=== PATIENT | female | born 1950 | race Caucasian/White ===

== ENCOUNTER → 2017-12-12 08:11 | Outpatient (CLI) | payer MEDICARE, SELFPAY ==
[2017-12-12 10:30] LABS: Absolute Lymphocyte Count 1.74 X10^3/ul (0.83-4.51); Absolute Neutrophil Count 2.5 X10^3/uL (2.0-7.7); Basophil# 0.04 X10^3/uL; Basophil% 0.8 % (0-1); Eosinophil# 0.11 X10^3/uL; Eosinophils% 2.2 % (0-5); Hematocrit 43.2 % (37-47); Hemoglobin 14.1 g/dl (12.0-15.0); Lymphocyte # 1.74 X10^3/ul (4.0); Lymphocyte % 34.2 % (19-41); Mean Corp Hgb Conc 32.6 g/gl (32-36); Mean Corpuscular Volume 98.2 fL (81-99); Mean Platelet Vol. 12.1 fl (6.2-12.0); Monocyte# 0.73 X10^3/uL; Monocyte% 14.3 % (0-10); Neutrophil # 2.46 X10^3/uL (2.7-7.7); Neutrophil % 48.3 % (47-70); Platelet Count 321 K/mm3 (150-450); RBC Distribution Width CV 13.9 % (11.6-14.6); RBC Distribution Width SD 49.1 fl (35.1-43.9); White Blood Count 5.1 K/mm3 (4.4-11.0)
[2017-12-12 10:32] LABS: POSITIVE COUNT NO; POSITIVE DIFFERENTIAL NO; POSITIVE MORPHOLOGY NO
[2017-12-12 10:50] LABS: ALB/GLOB Ratio 1.1 RATIO (0.9-2.4); AST(SGOT) 27 U/L (15-37); Alanine Aminotransfer ALT/SGPT 28 U/L (13-56); Albumin, Serum 3.9 g/dL (3.2-5.0); Alkaline Phosphatase 66 U/L (45-117); Anion Gap 9 (5-15); BUN 17 mg/dL (7-18); BUN/Creat Ratio 19.6 RATIO (10-20); Calcium,Total 8.6 mg/dL (8.5-10.1); Chloride 104 mmol/L (98-107); Cholesterol 227 mg/dL (200); Creatinine, Serum 0.87 mg/dL (0.55-1.02); EST Glomerular Filtration Rate 69 mL/min (>60); Est Glom Filt Rate - Afr Amer 83 mL/min (>60); Globulin 3.4 g/dL (2.2-4.2); Glucose 85 mg/dL (74-106); High Density Lipoprotein 102 mg/dL; Potassium 4.4 mmol/L (3.5-5.1); Protein, Total 7.3 g/dL (6.4-8.2); Sodium Level 139 mmol/L (136-145); Thyroid Stim Hormone (TSH) 3.33 uIU/mL (0.358-3.74); Triglycerides 52 mg/dL; Very Low Density Lipoprotein 10 mg/dL (5-40)
[2017-12-13 09:33] LABS: Vitamin D,25 Hydroxy 32.1 ng/mL (29.95-100.01)
== END ==
PROVIDERS: Family Provider Family Medicine; PCP Family Medicine; Visit Provider Family Medicine
DX: Z00.00 Encounter for general adult medical examination without abnormal findings (principal); E78.00 Pure hypercholesterolemia, unspecified; E55.9 Vitamin D deficiency, unspecified
CPT/HCPCS: 36415; 80053; 80061; 82306; 84443; 85025

== ENCOUNTER → 2018-02-20 10:22 | Outpatient (CLI) | payer MEDICARE, SELFPAY ==
--- NOTE | 2018-02-20 10:27 | BI_ITS ---
MAMMOGRAPHY - BILATERAL SCREENING REASON FOR EXAM: Female, 67 years old. Routine annual screening examination. PERTINENT HISTORY: Non-contributory. TECHNIQUE: Digital bilateral breast niru (3D mammographic acquisition) in the CC and MLO projections. 2-D mediolateral oblique (MLO) and craniocaudad (CC) views of both breasts were obtained. CAD: Full Field Digital Mammography with Computer Added Detection was performed. COMPARISON: Comparison is made with prior study dated February 07, 2017 and September 02, 2015. FINDINGS: Breast Composition: The breasts are heterogeneously dense, which may obscure small masses. There are no dominant masses or suspicious calcifications. No other significant abnormalities are identified. There has been no significant change since the prior study. BI/SCREENING MAMM (CAD), BILAT IMPRESSION: Stable bilateral screening mammogram. Yearly follow-up mammogram recommended. (A) ASSESSMENT CATEGORY: BIRADS Category 1: Negative. A letter regarding these results will be sent to the patient by the facility within 30 days. Approximately 10% of breast cancers are not detected by mammography. A normal mammogram should not delay biopsy of a clinically suspicious abnormality. [id number] Electronically Signed: Ajay Lai MD at 12:29 EDT Tel [phone], Service support ,
--- NOTE | 2018-02-20 10:33 | BD_ITS ---
STUDY: DUAL ENERGY X-RAY ABSORPTIOMETRY / DXA REASON FOR EXAM: Female, 67 years old. The patient is postmenopausal. Loss of height. TECHNIQUE: Bone Mineral Density (BMD) measurements of lumbar spine and bilateral hips were obtained. COMPARISON: Comparison is made with prior study dated February 16, 2016. FINDINGS: Lumbar Spine (L1-L4): g/cm2 (0.941) / T-score (-1.9) / Z-score (-0.2) Findings are suggestive of osteopenia with a moderate fracture risk. Left Femur Total: g/cm2 (0.750) / T-score (-2.0) / Z-score (-0.6) Left Femoral Neck: g/cm2 (0.714) / T-score (-2.3) / Z-score (-0.7) Right Femur Total: g/cm2 (0.787) / T-score (-1.7) / Z-score (-0.3) Right Femoral Neck: g/cm2 (0.793) / T-score (-1.8) / Z-score (-0.1) The T-Scores on the most recent prior examination were: Lumbar Spine (L1-L4): There has been improvement of bone density since the previous examination. Left Femur Total: which represents a worsening of 3.6%. Right Femur Total: which represents a worsening of 0.8%. BD/Dexa Bone Density Study IMPRESSION: The patient is considered osteopenic as outlined below according to World [place] Organization (WHO) criteria with a moderate fracture risk. There has been worsening of bone density since the previous examination. Reference Information: The T-score is the number of standard deviations above or below the standard which is normal for young adults at their peak bone mineral density. The World Health Organization (WHO) interprets the T-scores as follows: Above -1 Normal bone density Between -1 and -2.5 Osteopenia Equal to / or below -2.5 Osteoporosis As a practical clinical guideline, osteopenia may be graded as follows: Mild -1 through -1.5 Moderate -1.6 through -2.0 Severe -2.1 through -2.4 The Z-score is the number of standard deviations above or below age-matched controls. A Z-score of less than -1.5 would be considered abnormal. References: 1. NIH Osteoporosis and Related Bone Diseases http://www.osteo.org 2. International Society for Clinical Densitometry http://www.iscd.org 3. National Osteoporosis Foundation http://www.nof.org Electronically Signed: Ajay Lai MD at 13:53 EDT Tel [phone], Service support ,
== END ==
PROVIDERS: Family Provider Family Medicine; PCP Family Medicine; Visit Provider Family Medicine
DX: Z12.31 Encounter for screening mammogram for malignant neoplasm of breast (principal); Z78.0 Asymptomatic menopausal state; M85.80 Other specified disorders of bone density and structure, unspecified site
CPT/HCPCS: 77063; 77067; 77080

== ENCOUNTER 2018-04-30 12:30 | Outpatient (RCR) | payer SELFPAY ==
--- NOTE | 2018-05-17 13:34 | HP.PT.NRP ---
HP - Discharge Summary (1) - Patient Information KATHRIN BRAVO was seen in my office for initial evaluation on . The following Plan of Care was established for this patient: - Anticipated Interventions Manual Therapy Techniques to Include: Functional dry needling For the Purpose of:: To improve nutrient delivery to tissue This patient was last seen in our office . Pertinent comments regarding their Physical therapy will appear below: Patient is currently receiving dry needling and will open a new chart as needed. d/c this chart at this time. At this point I will be discontinuing this patient from physical therapy. I would be happy to see this patient again in the future if found appropriate by the physician. Thank you! Maday Parrish
== END 2018-04-30 19:00 | disposition home or self-care (01) ==
LOC: PT 12:30
PROVIDERS: Family Provider Family Medicine; PCP Family Medicine
DX: M50.122 Cervical disc disorder at C5-C6 level with radiculopathy (principal); M50.123 Cervical disc disorder at C6-C7 level with radiculopathy

== ENCOUNTER → 2018-05-18 12:13 | Outpatient (CLI) | payer MEDICARE, SELFPAY ==
--- NOTE | 2018-05-18 12:16 | RAD_ITS ---
STUDY: X-RAY - LUMBAR SPINE REASON FOR EXAM: Female, 67 years old. Patient fell 6 weeks ago. Pain in thoracic down into her lumbar mostly left side, now her hips as well. Patient could not lie on her left side. Lateral films done on her right side. TECHNIQUE: 5 view(s) of the lumbar spine were obtained. COMPARISON: None FINDINGS: Normal lumbar lordosis. There is a levoscoliosis of the lumbar spine. There is grade 1 anterolisthesis at L5-S1. There is diffuse demineralization with multi-level endplate spondylosis. There is multi-level degenerative disc disease with multi-level disc space narrowing. The soft tissue structures are unremarkable. RAD/L/S Spine Min 4 Views IMPRESSION: Degenerative changes of the spine, as detailed above. No acute fracture is demonstrated. Electronically Signed: Monica Long MD at 13:10 EDT , Service support ,
--- NOTE | 2018-05-18 12:18 | RAD_ITS ---
STUDY: X-RAY - THORACIC SPINE REASON FOR EXAM: Female, 67 years old. Patient fell 6 weeks ago. Pain in thoracic down into her lumbar mostly left side, now her hips as well. Patient could not lie on her left side. Lateral films done on her right side. TECHNIQUE: 2 view(s) of the thoracic spine were obtained. COMPARISON: None. FINDINGS: Normal kyphosis of the thoracic spine. There is a lower thoracic dextroscoliosis. There is demineralization of the thoracic spine with endplate spondylosis. There is multilevel disc space narrowing of the thoracic spine. The soft tissue structures are unremarkable. RAD/Thoracic Spine 2 Views IMPRESSION: There are degenerative changes. No acute fracture is demonstrated. Electronically Signed: Monica Long MD at 13:11 EDT , Service support ,
== END ==
PROVIDERS: Family Provider Family Medicine; PCP Family Medicine; Visit Provider Family Medicine
DX: M54.5 Low back pain (principal)
CPT/HCPCS: 72070; 72110

== ENCOUNTER → 2018-06-08 10:54 | Outpatient (CLI) | payer MEDICARE, SELFPAY ==
--- NOTE | 2018-06-08 10:58 | RAD_ITS ---
STUDY: X-RAY - UNILATERAL RIBS ( LEFT ) WITH CHEST REASON FOR EXAM: Female, 67 years old. Left mid posterior rib pain. Recent fall. TECHNIQUE - RIBS: 2 view(s) of the ribs. TECHNIQUE - CHEST: Single PA view of the chest. COMPARISON: Comparison is made with prior chest radiograph dated August 15, 2013. FINDINGS - RIBS: There is evidence of a healed fractures of the left second third fourth and fifth ribs. Healing fracture of the left sixth rib. FINDINGS - CHEST: Scattered calcified granulomas. There is no demonstrated pleural abnormality. Normal size heart. Normal mediastinum and adarsh. Normal visualized pulmonary arteries. Normal visualized aortic arch and descending thoracic aorta. There are diffuse degenerative changes of the visualized thoracic spine. Normal visualized ribs, clavicles, and shoulders. There is no demonstrated abnormality of the visualized soft tissue structures of the upper abdomen. RAD/Ribs Uni Min 3V w/PA Chest IMPRESSION: RIBS: Healing fracture of the left sixth rib. Healed fractures of the left second third fourth and fifth ribs. CHEST: Normal x-ray examination of the chest. Electronically Signed: Ajay Lai MD at 11:21 EDT Tel [phone], Service support ,
== END ==
PROVIDERS: Family Provider Family Medicine; PCP Family Medicine; Visit Provider Family Medicine
DX: M54.6 Pain in thoracic spine (principal)
CPT/HCPCS: 71101

== ENCOUNTER → 2018-07-16 15:58 | Outpatient (CLI) | payer MEDICARE, SELFPAY ==
--- NOTE | 2018-07-16 16:00 | RAD_ITS ---
STUDY: X-RAY - RIGHT WRIST REASON FOR EXAM: Female, 67 years old. Fall. TECHNIQUE: 3 view(s) of the wrist were obtained. COMPARISON: None. FINDINGS: 3 mm calcific density projects dorsal to the carpal bones. This is most often a displaced fracture of the triquetral. Also, on the oblique view there is suggestion of nondisplaced fracture across the body of the scaphoid. Degenerative changes are seen at the base of the thumb. There is dorsal soft tissue swelling. RAD/Wrist min 3 Views IMPRESSION: Probable fracture of the dorsal aspect of the triquetral. Possible nondisplaced fracture through the body of the scaphoid. Electronically Signed: Yordy Polo MD at 15:21 EDT , Service support ,
== END ==
PROVIDERS: Family Provider Family Medicine; PCP Family Medicine; Referring Provider Family Medicine; Visit Provider Family Medicine
DX: M25.531 Pain in right wrist (principal)
CPT/HCPCS: 73110

== ENCOUNTER → 2018-08-01 10:17 | Outpatient (CLI) | payer MEDICARE, SELFPAY ==
--- NOTE | 2018-08-01 10:20 | RAD_ITS ---
STUDY: X-RAY - RIGHT WRIST REASON FOR EXAM: Female, 67 years old. Right wrist pain TECHNIQUE: 3 view(s) of the wrist were obtained. COMPARISON: 07/16/2018 FINDINGS: Again noted is a small dorsal triquetral fracture with evidence of mild healing. Decreased soft tissue swelling. No evidence of scaphoid fracture. No evidence of dislocation. RAD/Wrist min 3 Views IMPRESSION: Healing triquetral fracture. Decreased soft tissue swelling. No evidence of scaphoid fracture Electronically Signed: Jerry Silverio DO at 10:17 EDT Tel , Service support ,
== END ==
PROVIDERS: Family Provider Family Medicine; PCP Family Medicine; Referring Provider Family Medicine; Visit Provider Family Medicine
DX: M25.531 Pain in right wrist (principal)
CPT/HCPCS: 73110

== ENCOUNTER 2018-08-20 10:00 | Outpatient (RCR) | payer MEDICARE, SELFPAY ==
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
--- NOTE | 2018-08-20 12:25 | HP.PTDCSUM ---
HP - PT D/C Summary It has been my pleasure to treat KATHRIN BRAVO under orders from Otis Reaves, for the diagnosis of L sided thoracic spine strain for a total of 13 visit(s). Discharge Date: 08/20/18 Please see the following information for a summary of their discharge status. - Subjective Subjective: PT. reports beign 85% better overall. Pt. is back to most activities without limiations. She does feel some T/S symptoms at times, but has more neck pain at times. Pt. educated to alter HEP to make sure not to compensate. - Pain L rib region Pain Intensity (Out of 10): 0 L hip Pain Intensity (Out of 10): 0 - Overall Improvement % Improvement: 85 - Objective Objective/Function: Pt. tolerated all PT without adverse reaction. Pt. has full ROM of bilateral shoulders without issues. Pt. does have marked winging of her L scapulea and mild weakness with L serratus anterior and supraspinatus 4+/5 on L side, 5/5 throughout rest of motion. Pt. is able to sleep without issues. Pt. is back to all recreational activities without limitations. - Goals Goal 1:: Pt. to be I with HEP. Goal Progress: Goal Met Goal 2:: Pt. to have increased serratus anterior, mid trap, and rhomboid strength of LUE allowing for increased scapular stabilty and proper use. Goal Progress: Goal Met Goal 3:: Pt. to have no pain with reaching and lifting over head allowing for increased tolerance to all work out movements. Goal Progress: Goal Met Goal 4:: Pt. to complete all workout activities without increase in symptoms. Goal Progress: Goal Met - Plan Plan: Pt. to be DC from PT at this point in time. - D/C Information Discharge Comments: Pt. progressed with strengthening as expected. Pt. was treated with scapular stability exercises and postural exercises. Pt. reports being 85% better overall and is back to her gym exercises. Pt. is to complete her HEP and is independent with that aspect. Pt. to continue to work strengthening as able. Pt. to be DC to HEP at this point in time. If there are questions or concerns regarding this patient's physical therapy, please feel free to call me at [phone]. Thank you for the referral of this patient. Sincerely, Marshall Meredith
== END 2018-08-20 19:00 | disposition home or self-care (01) ==
LOC: PT 10:00
PROVIDERS: Family Provider Family Medicine; PCP Family Medicine; Visit Provider Family Medicine
DX: S29.012D Strain of muscle and tendon of back wall of thorax, subsequent encounter (principal)
CPT/HCPCS: 97035; 97110; 97140; 97161; 97530

== ENCOUNTER → 2019-01-16 08:48 | Outpatient (CLI) | payer MEDICARE, SELFPAY ==
[2019-01-16 09:57] LABS: Basophil# 0.03 X10^3/uL; Basophil% 0.6 % (0-1); Eosinophil# 0.32 X10^3/uL; Eosinophils% 6.3 % (0-5); Hematocrit 39.9 % (37-47); Lymphocyte % 41.7 % (19-41); Mean Corp Hgb Conc 32.6 g/gl (32-36); Mean Corpuscular Hgb 31.9 pg (27.0-32.0); Mean Platelet Vol. 10.8 fl (6.2-12.0); Monocyte# 0.55 X10^3/uL; Monocyte% 10.9 % (0-10); Neutrophil # 2.02 X10^3/uL (2.7-7.7); Neutrophil % 40.1 % (47-70); Platelet Count 379 K/mm3 (150-450); RBC Distribution Width SD 54.3 fl (35.1-43.9); Red Blood Count 4.07 M/mm3 (4.2-5.4)
[2019-01-16 09:59] LABS: POSITIVE COUNT NO; POSITIVE DIFFERENTIAL NO; POSITIVE MORPHOLOGY NO
[2019-01-16 10:20] LABS: Anion Gap 4 (5-15); BUN 18 mg/dL (7-18); BUN/Creat Ratio 26.2 RATIO (10-20); Calcium,Total 9.1 mg/dL (8.5-10.1); Chloride 104 mmol/L (98-107); Cholesterol 258 mg/dL (200); Creatinine, Serum 0.69 mg/dL (0.55-1.02); EST Glomerular Filtration Rate 90 mL/min (>60); Est Glom Filt Rate - Afr Amer 109 mL/min (>60); Glucose 79 mg/dL (74-106); High Density Lipoprotein 97 mg/dL; Potassium 4.3 mmol/L (3.5-5.1); Sodium Level 136 mmol/L (136-145); Triglycerides 83 mg/dL; Very Low Density Lipoprotein 17 mg/dL (5-40)
[2019-01-16 11:37] LABS: Vitamin D,25 Hydroxy 41.9 ng/mL (29.95-100.01)
[2019-01-16 13:48] LABS: Color, Urine Yellow (Yellow); Glucose, Dipstick Normal (Normal); Ketone-Dipstick Negative (Negative); Leukocyte Esterase-Dipstick 100 /ul (Negative); Nitrite-Dipstick Negative (Negative); Occult Blood-Urine Negative /ul (Negative); Protein-Dipstick Negative (Negative); Specific Gravity, Urine 1.015 (1.002-1.030); Urine Bilirubin Dipstick Negative (Negative); Urine Clarity Sl. Cloudy (Clear); Urine Urobilinogen Normal (Normal); Urine pH 6.5 (5.0 - 8.0)
== END ==
PROVIDERS: Family Provider Family Medicine; PCP Family Medicine; Referring Provider Family Medicine; Visit Provider Family Medicine
DX: N94.10 Unspecified dyspareunia (principal); I34.1 Nonrheumatic mitral (valve) prolapse; M85.80 Other specified disorders of bone density and structure, unspecified site; E78.00 Pure hypercholesterolemia, unspecified
CPT/HCPCS: 36415; 80048; 80061; 81002; 82306; 85025

== ENCOUNTER → 2019-02-04 11:29 | Outpatient (CLI) | payer MEDICARE, SELFPAY ==
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
== END ==
PROVIDERS: Family Provider Family Medicine; PCP Family Medicine; Referring Provider Family Medicine; Visit Provider Family Medicine
DX: M46.1 Sacroiliitis, not elsewhere classified (principal)
CPT/HCPCS: 72110; 73502

== ENCOUNTER 2019-02-18 16:00 | Outpatient (RCR) | payer SELFPAY | END 2019-02-18 19:00 | disposition home or self-care (01) | LOC: PT 16:00 | PROVIDERS: Family Provider Family Medicine; PCP Family Medicine | DX: R69 Illness, unspecified (principal) ==

== ENCOUNTER 2019-03-04 09:32 | Outpatient (RCR) | payer SELFPAY ==
--- NOTE | 2019-06-24 13:36 | HP.PT.NRP ---
HP - Discharge Summary (1) - Patient Information KATHRIN BRAVO was seen in my office for initial evaluation on 03/04/19. The following Plan of Care was established for this patient: - Anticipated Interventions Patient/Client Instruction: Educate patient on: Condition, Plan of Care, Risk Factors For the Purpose of:: To prevent re-injury, To improve ability to perform tasks related to life management, To improve tolerance to ADL's Manual Therapy Techniques to Include: Passive ROM, Functional dry needling, Soft tissue mobilization For the Purpose of:: To decrease pain, To decrease swelling/inflammation, To increase ROM, To improve health of tissue, To decrease soft tissue restriction, To increase flexibility/ROM This patient was last seen in our office 03/04/19. Pertinent comments regarding their Physical therapy will appear below: Pt. has not been seen in several months and will be DC from [facility] at this point in time. At this point I will be discontinuing this patient from physical therapy. I would be happy to see this patient again in the future if found appropriate by the physician. Thank you! MABLE VerdinT
== END 2019-03-04 19:00 | disposition home or self-care (01) ==
LOC: PT 09:32
PROVIDERS: Family Provider Family Medicine; PCP Family Medicine
DX: R69 Illness, unspecified (principal)

== ENCOUNTER → 2019-04-24 15:28 | Outpatient (CLI) | payer MEDICARE, SELFPAY ==
--- NOTE | 2019-04-24 15:40 | MRI_ITS ---
HISTORY:PELVIC FX, R HIP AND PELVIC PAIN WHEN WALKING AND WHEN SITTING MRI EXAMINATION OF THEPELVIS COMPARISON: February 04, 2019 radiographs TECHNICAL INFORMATION: Coronal T1, STIR, sagittal T2, axial T1 and fat-suppressed T2 # of images including paperwork:219 FINDINGS: Bones: There are bilateral inferior pubic fractures with marrow edema. In addition there is abnormal signal seen within the right superior pubic rami. Abnormal signal is also seen at the junction of the superior pubic rami and the acetabulum bilaterally. I suspect these represent subacute fractures particularly the bilateral superior pubic/acetabular fractures. There is surrounding callus formation. There is also callus seen at the other fracture sites. Musculotendinous structures: Increased signal/strain is seen within the bilateral obturator externus muscles and to lesser extent the abductor nafisa muscles There is fluid that is seen at the ischial tuberosity on the right suggesting partial tear of the conjoined hamstring tendon Intrapelvic contents: Intrapelvic contents are normal in appearance without mass lesion or other abnormality. Hip joints and bursae: Small joint effusions are seen bilaterally. No significant iliopsoas or trochanteric bursal fluid. Neurovascular structures: Perineural cysts are seen at the level of S3 bilaterally. No arterial aneurysm is identified. MRI/Pelvis (Routine) IMPRESSION: There are subacute fractures involving the bilateral inferior pubic bones, and the junction of the bilateral superior pubic bones and acetabulum in the bilateral superior pubic bones as well as the right superior pubic rami there is also abnormal signal seen within the obturator externus muscles bilaterally and the abductor nafisa muscles bilaterally Fluid at the right ischial tuberosity suggesting partial tear of the conjoined hamstring tendon attachment Small bilateral hip joint effusions Perineural cysts at S3 bilaterally at 2140 Reported and signed by: Kita Corrales DO Electronically Signed: Kita Corrales DO at 21:39 EDT Tel , Service support ,
== END ==
PROVIDERS: Family Provider Family Medicine; PCP Family Medicine; Referring Provider Family Medicine; Visit Provider Family Medicine
DX: M25.9 Joint disorder, unspecified (principal); S32.9XXA Fracture of unspecified parts of lumbosacral spine and pelvis, initial encounter for closed fracture; M62.81 Muscle weakness (generalized)
CPT/HCPCS: 72195

== ENCOUNTER → 2019-05-23 08:39 | Outpatient (CLI) | payer MEDICARE, SELFPAY ==
--- NOTE | 2019-05-23 08:40 | BI_ITS ---
MAMMOGRAPHY - BILATERAL SCREENING REASON FOR EXAM: Female, 68 years old. Routine annual screening examination. PERTINENT HISTORY: Non-contributory. TECHNIQUE: Digital bilateral breast richmond (3D mammographic acquisition) in the CC and MLO projections. 2-D mediolateral oblique (MLO) and craniocaudad (CC) views of both breasts were obtained. CAD: Full Field Digital Mammography with Computer Added Detection was performed. COMPARISON: Comparison is made with prior study dated February 20, 2018 and February 07, 2017. FINDINGS: Breast Composition: The breasts are heterogeneously dense, which may obscure small masses. There are no dominant masses or suspicious calcifications. No other significant abnormalities are identified. There has been no significant change since the prior study. BI/SCREEN MAMM (CAD) W/RICHMOND BILAT IMPRESSION: Stable bilateral screening mammogram. Yearly follow-up mammogram recommended. (A) ASSESSMENT CATEGORY: BIRADS Category 1: Negative. A letter regarding these results will be sent to the patient by the facility within 30 days. Approximately 10% of breast cancers are not detected by mammography. A normal mammogram should not delay biopsy of a clinically suspicious abnormality. [id number] Electronically Signed: Ajay Lai, at 9:32 EDT , Service support ,
== END ==
PROVIDERS: Family Provider Family Medicine; PCP Family Medicine; Referring Provider Family Medicine; Visit Provider Family Medicine
DX: Z12.31 Encounter for screening mammogram for malignant neoplasm of breast (principal)
CPT/HCPCS: 77063; 77067

== ENCOUNTER 2019-07-11 09:00 | Outpatient (RCR) | payer MEDICARE, SELFPAY ==
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
--- NOTE | 2019-02-15 10:12 | HP.PTREVAL_ITS ---
Otis Reaves MD, It has been my pleasure to treat KATHRIN BRAVO over the last 9 visits for Multiple pelvic fracturess. Please see the progress note below for an update on the physical therapy plan of care! Subjective: Pt. reports I am about 50% better overall. Pt. reports being HEP compliant without issues. She is able to rise a stationary bike for upto 7 miles, but walking is still painful. Pt. denies N/t in either LE. Pt. reprots fatigue with aquatic exercises. Pt. is to follow back up with ortho next week, due to still have increased pain. Objective/Function: RLE- ankle 5/5 throughout; knee- ext 5/5, flexion 5-/5; hip- flexion 4/5, abd 4/5, ext 4-/5. LLE- ankle 5/5 throughout; knee- 5/5 throughout; hip- flexion 4+/5, abd 4/5, ext 4+/5. Core strength- poor+. ROM- Pt. has full ROM, decreased active hip ext, but has full passive ROM of R hip. Gait: Pt. ambulates with and without cane. PT. has decreased step length and decreased hip extension on R side. Pt. ambulates in guarded posture. Pt. does have increased lateral hip sway, but no [place]. STAIRS: step to pattern, mild increase in symptoms with RLE stance phase. Plan Plan: POC extended x2 per week for 4 weeks. X1 on land and x1 in pool. with progression to more land therapy. Pt. continues to present with hip and core weakness. Add in elliptical to get increase hip extension and progress functional strengthening as tolerated. Goals Goal 1:: Pt. to be I with HEP. Goal Time Frame: 4-6 Weeks Goal Progress: Progressing Goal 2:: Pt. to have increased strength of bilateral LEs and core by 1/2 grade. Goal Time Frame: 4-6 Weeks Goal Progress: Progressing Goal 3:: Pt. to ambulate with out AD unlimited distances without increase in symptoms. Goal Time Frame: 4-6 Weeks Goal Progress: Progressing Goal 4:: Pt. negotiate steps with reciprocal pattern with use of 1 HR withotu increase in symptoms. Goal Time Frame: 4-6 Weeks Goal 5:: Pt. to have no pain at rest allowing for increased quality of life. Goal Time Frame: 4-6 Weeks Goal Progress: Progressing Anticipated Interventions Patient/Client Instruction: Educate patient on: Condition, Plan of Care, Risk Factors, Benefits of Fitness Program For the Purpose of:: To foster healthy habits, To improve decision making, To facilitate caregiver knowledge, To improve self management, To prevent re- injury, To improve ability to perform tasks related to life management, To improve tolerance to ADL's Therapeutic Exercise to Include: Strength training, Power training, Endurance training, Balance training, Postural training, Flexibilty training, Gait and locomotor training, In an aquatic setting, Passive ROM, Active ROM For the Purpose of:: To decrease pain, To decrease swelling/inflammation, To increase ROM, To improve nutrient delivery to tissue, To increase oxygenation perfusion, To improve muscle performance and motor function, To improve ability to perform ADL's, To improve health of tissue, To decrease soft tissue restriction, To increase flexibility/ROM Please do not hesitate to contact me at [phone] by phone or if you have questions or concerns regarding this new plan of care! Sincerely, Marshall Meredith DPT
--- NOTE | 2019-03-08 12:35 | HP.PTREVAL_ITS ---
Otis Reaves MD, It has been my pleasure to treat KATHRIN BRAVO over the last 18 visits for Multiple pelvic fracturess. Please see the progress note below for an update on the physical therapy plan of care! Subjective: Pt. reports I am doing better, about 75% better. I still have pain with getting up out of the chair, but I have no pain after using the eliptical. Pt. reports overall doing better, but is still not where she wants to be with her functional mobility. Objective/Function: Pt. is tolerating all PT, but has some increased pain with initially getting up out of a chair. Pt. is progressing with strengthening and mobility. Pt. is walking intermittently with and without cane. pt. does have decreased temp with gait and is gaurded still. Pt. has incrased hip abd strength to 4-/5 and hip flexino strength to 4-/5 on RLE. Pt. has pain with hip extension stretching and is still weak with her core and RLE. Pt. is steadly, but slowly progressing. Pt. is able to complete many gym exercises with increased tolerance, but has increased difficulty with walking after sustained sitting. Plan Plan: cont. with POC. Focus on increased aerobic strengthening and hip/core strengthening in aquatic and land setting. Goals Goal 1:: Pt. to be I with HEP. Goal Time Frame: 4-6 Weeks Goal Progress: Progressing Goal 2:: Pt. to have increased strength of bilateral LEs and core by 1/2 grade. Goal Time Frame: 4-6 Weeks Goal Progress: Progressing Goal 3:: Pt. to ambulate with out AD unlimited distances without increase in symptoms. Goal Time Frame: 4-6 Weeks Goal Progress: Progressing Goal 4:: Pt. negotiate steps with reciprocal pattern with use of 1 HR withotu increase in symptoms. Goal Time Frame: 4-6 Weeks Goal 5:: Pt. to have no pain at rest allowing for increased quality of life. Goal Time Frame: 4-6 Weeks Goal Progress: Progressing Anticipated Interventions Patient/Client Instruction: Educate patient on: Condition, Plan of Care, Risk Factors, Benefits of Fitness Program For the Purpose of:: To foster healthy habits, To improve decision making, To facilitate caregiver knowledge, To improve self management, To prevent re- injury, To improve ability to perform tasks related to life management, To improve tolerance to ADL's Therapeutic Exercise to Include: Strength training, Power training, Endurance training, Balance training, Postural training, Flexibilty training, Gait and locomotor training, In an aquatic setting, Passive ROM, Active ROM For the Purpose of:: To decrease pain, To decrease swelling/inflammation, To increase ROM, To improve nutrient delivery to tissue, To increase oxygenation perfusion, To improve muscle performance and motor function, To improve ability to perform ADL's, To improve health of tissue, To decrease soft tissue restriction, To increase flexibility/ROM Please do not hesitate to contact me at [phone] by phone or if you have questions or concerns regarding this new plan of care! Sincerely, MABLE VerdinT
== END 2019-07-11 19:00 | disposition home or self-care (01) ==
LOC: PT 09:00
PROVIDERS: Family Provider Family Medicine; PCP Family Medicine; Referring Provider Family Medicine; Visit Provider Family Medicine
DX: S32.9XXA Fracture of unspecified parts of lumbosacral spine and pelvis, initial encounter for closed fracture (principal); R29.898 Other symptoms and signs involving the musculoskeletal system
CPT/HCPCS: 97110; 97113; 97161; 97530

== ENCOUNTER → 2019-08-07 13:05 | Outpatient (CLI) | payer MEDICARE, SELFPAY ==
--- NOTE | 2019-08-07 13:08 | ECHOD_ITS ---
Reason For Study: MVP Procedure This was a 2D Doppler, Color Flow transthoracic echocardiogram. Exam performed in department. Left Ventricle Normal size and thickness. The estimated ejection fraction is 55 %. No evidence for diastolic dysfunction. No regional wall motion abnormalities noted. Right Ventricle Normal right ventricle. Normal systolic function. Atria Normal left atrium. Normal right atrium. No doppler evidence for ASD. Mitral Valve There is no mitral valve stenosis. Mild (1+) mitral valve insufficiency. Tricuspid Valve There is no tricuspid stenosis. Mild tricuspid valve insufficiency. Normal pulmonary artery pressure. Aortic Valve Trisinus/trileaflet aortic valve. There is no aortic stenosis. No aortic valve insufficiency. Pulmonic Valve There is no pulmonic valvular stenosis. No pulmonic valve insufficiency. Great Vessels Normal aortic root. Pericardium/Pleural No pericardial effusion. MMode/2D Measurements & Calculations LVIDd: 3.9 cm IVSd: 1.0 cm Ao root diam: 2.7 cm LVIDs: 2.6 cm LVPWd: 0.99 cm LA dimension: 3.1 cm RVDd: 3.0 cm FS: 32.5 % LAV(MOD-bp): 33.1 ml LA A4 area: 14.5 cm2 RA A4 area: 13.3 cm2 LAV(MOD-bp) Indexed: 22.1 ml/m2 LAV(MOD-sp2): 30.9 ml LAV(MOD-sp4): 35.4 ml Time Measurements MV dec time: 0.32 sec Doppler Measurements & Calculations MV E max romeo: 62.7 cm/sec Lat Peak E' Romeo: 7.2 cm/sec Med Peak E' Romeo: 6.3 cm/sec MV A max romeo: 89.1 cm/sec E/E' lat: 8.7 E/E' med: 9.9 MV E/A: 0.70 MV V2 max: 90.5 cm/sec MV P1/2t max romeo: 75.1 cm/sec Ao V2 max: 117.1 cm/sec MV max P.3 mmHg MV P1/2t: 92.1 msec Ao max P.5 mmHg MV V2 mean: 44.0 cm/sec MV dec slope: 238.9 cm/sec2 MV mean P.95 mmHg MVA(P1/2t): 2.4 cm2 MV V2 VTI: 27.7 cm AI max romeo: 476.3 cm/sec LV V1 max: 67.9 cm/sec PA V2 max: 70.5 cm/sec AI max P.7 mmHg LV V1 max P.8 mmHg AI dec slope: 228.0 cm/sec2 AI P1/2t: 611.8 msec TR max romeo: 219.0 cm/sec TR max P.2 mmHg Interpretation Summary The estimated ejection fraction is 55 %. No evidence for diastolic dysfunction. Mild (1+) mitral valve insufficiency. Mild tricuspid valve insufficiency. Ordering Physician: Pablo Bass Referring Physician: Pablo Bass Performed By: Geovanny Sanabria RCS
== END ==
PROVIDERS: Family Provider Family Medicine; PCP Family Medicine; Referring Provider Family Medicine; Visit Provider Family Medicine
DX: I34.1 Nonrheumatic mitral (valve) prolapse (principal)
CPT/HCPCS: 93306

== ENCOUNTER → 2019-09-19 14:09 | Outpatient (CLI) | payer MEDICARE, SELFPAY ==
--- NOTE | 2019-09-19 14:13 | RAD_ITS ---
STUDY: X-RAY - LEFT SHOULDER REASON FOR EXAM: Female, 68 years old. Left shoulder pain TECHNIQUE: 4 view(s) of the shoulder. COMPARISON: None. FINDINGS: Normal glenohumeral articulation. Normal acromioclavicular joint. Normal acromion. There is an old nonunited fracture of the mid left clavicular shaft. Normal humeral head and visualized proximal humerus. The soft tissue structures are unremarkable. There are several old healed left-sided rib fractures. Normal visualized pulmonary apex. RAD/Shoulder min 2 Views IMPRESSION: Normal x-ray examination of the shoulder. 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 Old healed left-sided rib fractures. Electronically Signed: Remy Valdes MD at 21:26 EST , Service support ,
--- NOTE | 2019-09-19 14:13 | RAD_ITS ---
STUDY: X-RAY - CERVICAL SPINE REASON FOR EXAM: Female, 68 years old. Neck pain TECHNIQUE: 6 view(s) of the cervical spine were obtained. COMPARISON: Prior study of 08/26/2016 FINDINGS: Normal anterior atlantoaxial articulation. Normal odontoid process. Normal cervical lordosis. There is endplate spondylosis of C5 and C6. There is severe narrowing of the C5-6 disc space and moderate narrowing of the C6-7 disc space. Normal visualized intervertebral neuroforamina. The soft tissue structures are unremarkable. RAD/Cerv Spine 4 or 5 Views IMPRESSION: Degenerative changes of C5-C7. Findings are similar to the previous study. Electronically Signed: Remy Valdes MD at 22:16 EST , Service support ,
== END ==
PROVIDERS: Family Provider Family Medicine; PCP Family Medicine; Referring Provider Family Medicine; Visit Provider Family Medicine
DX: M54.2 Cervicalgia (principal); S42.022K Displaced fracture of shaft of left clavicle, subsequent encounter for fracture with nonunion; X58.XXXD Exposure to other specified factors, subsequent encounter
CPT/HCPCS: 72050; 73030

== ENCOUNTER 2019-10-11 08:30 | Outpatient (RCR) | payer MEDICARE, SELFPAY | END 2019-10-11 17:00 | disposition home or self-care (01) | LOC: PT 08:30 | PROVIDERS: Family Provider Family Medicine; PCP Family Medicine; Referring Provider Family Medicine; Visit Provider Family Medicine | DX: R29.898 Other symptoms and signs involving the musculoskeletal system (principal) ==

== ENCOUNTER → 2019-11-01 15:14 | Outpatient (CLI) | payer MEDICARE, SELFPAY ==
[2019-11-01 15:18] LABS: Bacteria 0 SEEN /hpf (None Seen); Mucous, Urine 0 SEEN /hpf (<or=2+); Red Blood Cells-Urine 0 SEEN /hpf (0-5); Squamous Epithelial Cells - UA 0 SEEN /hpf (5-10); White Blood Cells 0 SEEN /hpf (0-5)
[2019-11-01 17:43] LABS: Color, Urine Yellow (Yellow); Glucose, Dipstick Normal (Normal); Ketone-Dipstick Negative (Negative); Leukocyte Esterase-Dipstick Negative /ul (Negative); Nitrite-Dipstick Negative (Negative); Occult Blood-Urine Negative /ul (Negative); Protein-Dipstick Negative (Negative); Specific Gravity, Urine 1.015 (1.002-1.030); Urine Bilirubin Dipstick Negative (Negative); Urine Clarity Clear (Clear); Urine Urobilinogen Normal (Normal)
[2019-11-01 18:00] LABS: ALB/GLOB Ratio 1.1 RATIO (0.9-2.4); AST(SGOT) 28 U/L (15-37); Alanine Aminotransfer ALT/SGPT 29 U/L (13-56); Albumin, Serum 4.2 g/dL (3.2-5.0); Alkaline Phosphatase 87 U/L (45-117); Anion Gap 8 (5-15); BUN 19 mg/dL (7-18); BUN/Creat Ratio 23.8 RATIO (10-20); Calcium,Total 9.5 mg/dL (8.5-10.1); Chloride 101 mmol/L (98-107); EST Glomerular Filtration Rate 75 mL/min (>60); Est Glom Filt Rate - Afr Amer 91 mL/min (>60); Globulin 3.7 g/dL (2.2-4.2); Glucose 94 mg/dL (74-106); Potassium 3.7 mmol/L (3.5-5.1); Protein, Total 7.9 g/dL (6.4-8.2); Sodium Level 136 mmol/L (136-145); Thyroid Stim Hormone (TSH) 3.71 uIU/mL (0.358-3.74)
== END ==
PROVIDERS: PCP Family Medicine; Referring Provider Family Medicine; Visit Provider Family Medicine
DX: I10 Essential (primary) hypertension (principal)
CPT/HCPCS: 36415; 80053; 81001; 84443

== ENCOUNTER → 2020-02-25 08:35 | Outpatient (CLI) | payer MEDICARE, SELFPAY ==
--- NOTE | 2020-02-25 08:43 | BD_ITS ---
STUDY: DUAL ENERGY X-RAY ABSORPTIOMETRY / DXA REASON FOR EXAM: Female, 69 years old. 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 COMPARISON: Comparison is made with prior study dated February 20, 2018. FINDINGS: Lumbar Spine (L1-L4): g/cm2 (0.901) / T-score (-2.2) / Z-score (-0.5) Findings are suggestive of osteopenia with a high fracture risk. Left Femur Total: g/cm2 (0.767) / T-score (-1.9) / Z-score (-0.4) Left Femoral Neck: g/cm2 (0.741) / T-score (-2.1) / Z-score (-0.4) Right Femur Total: g/cm2 (0.752) / T-score (-2.0) / Z-score (-0.5) Right Femoral Neck: g/cm2 (0.783) / T-score (-1.8) / Z-score (-0.1) The T-Scores on the most recent prior examination were: Lumbar Spine (L1-L4): There has been worsening of bone density since the previous examination. Left Femur Total: which represents an improvement of 2.3%. Right Femur Total: which represents a worsening of 4.4%. BD/Dexa Bone Density Study IMPRESSION: The patient is considered osteopenic as outlined below according to World [place] Organization (WHO) criteria with a moderate fracture risk. There has been worsening of bone density since the previous examination. Reference Information: The T-score is the number of standard deviations above or below the standard which is normal for young adults at their peak bone mineral density. The World Health Organization (WHO) interprets the T-scores as follows: Above -1 Normal bone density Between -1 and -2.5 Osteopenia Equal to / or below -2.5 Osteoporosis As a practical clinical guideline, osteopenia may be graded as follows: Mild -1 through -1.5 Moderate -1.6 through -2.0 Severe -2.1 through -2.4 The Z-score is the number of standard deviations above or below age-matched controls. A Z-score of less than -1.5 would be considered abnormal. References: 1. NIH Osteoporosis and Related Bone Diseases http://www.osteo.org 2. International Society for Clinical Densitometry http://www.iscd.org 3. National Osteoporosis Foundation http://www.nof.org Electronically Signed: Ajay Lai, at 12:04 EDT , Service support ,
== END ==
PROVIDERS: Family Provider Family Medicine; PCP Internal Medicine
DX: M81.0 Age-related osteoporosis without current pathological fracture (principal)
CPT/HCPCS: 77080

== ENCOUNTER → 2020-04-14 14:25 | Outpatient (CLI) | payer SELFPAY ==
--- NOTE | 2020-04-14 14:41 | CT_ITS ---
STUDY: CARDIAC CALCIUM SCORING - CT CHEST REASON FOR EXAM: Female, 69 years old. CALCIUM SCREENING, OVER READ ONLY RADIATION DOSAGE (If Supplied By Facility): CTDIvol = ( 12.19 ) mGy, DLP = ( 170.66 ) mGycm TECHNIQUE: Axial non-enhanced images were acquired through the heart for the sole purpose of measuring coronary artery calcium. Individualized dose optimization techniques were used for this CT. COMPARISON: None. FINDINGS: Please see the patient''s medical record for a personalized calcium score. There are calcified granulomata noted in the right lung. The lungs are otherwise clear. The visualized soft tissues are within normal limits. CT/Limited Chest CT w/CCTA IMPRESSION: Please see the patient''s medical record for a personalized calcium score. Evidence of prior granulomatous disease. Please go to: [email or web address] , for a description of the calculator. Electronically Signed: Marek Browne, at 17:40 EDT Tel , Service support ,
[2020-04-14 14:49] VITALS: BP 120/66; PULSE 64; RESP 14; O2SAT 99; BMI 20.4
--- NOTE | 2020-04-14 16:44 | CA.SCORE ---
Calcium Scoring Date of Study:: 04/14/20 Coronary Calcium Scoring: High-resolution Computed Tomographic imaging of the chest was performed on [ ], with particular attention paid to the coronary arteries. Images from the examination were analyzed for the presence and extent of coronary artery calcification , using coronary calcium quantification software. The patient tolerated the procedure well and there were no complications. The results of the coronary calcification analysis are provided below. - Findings Left Main (LM): 0 Left Anterior Descending (LAD): 0 Left Circumflex (LCX): 0 Right Coronary Artery (RCA): 0 Total Agatston Score: 0 Percentile Rankin Calcium Scoring Interpretation: 0 No identifiable atherosclerotic plaque. Very low cardiovascular disease risk. <5% chance of presence coronary artery disease A Negative Examination 1-10 Minimal Plaque burden. Significant coronary artery disease very unlikely. 11-100 Mild plaque burden. Likely mild or minimal coronary atherosclerosis. 101-400 Moderate plaque burden Moderate non-obstructive coronary artery disease highly likely. Over 400 Extensive plaque burden. High likelihood of at least one significant coronary stenosis (>50% diameter) Calcium Score: 0 Negative Examination - For evaluation of cardiac risk would include an assessment of all conventional risk factors and the scores and percentile rankings reported herein should be evaluated in this context.
== END ==
PROVIDERS: PCP Internal Medicine; Referring Provider Internal Medicine; Visit Provider Internal Medicine
DX: Z13.6 Encounter for screening for cardiovascular disorders (principal)
CPT/HCPCS: 75571; 76380

== ENCOUNTER 2020-04-22 12:30 | Outpatient (RCR) | payer MEDICARE, SELFPAY ==
--- NOTE | 2019-10-14 15:54 | HP.PTEVAL_ITS ---
Patient's Visit Information KATHRIN BRAVO is a 68 year old F referred to Physical Therapy by Pablo Bass MD with a diagnosis of L scapular dysfunction. Date of Evaluation: 10/02/19 Physical Therapist: Marshall Meredith DPT - Visit Plan Frequency: 1-2x /Week Duration: 4-6 Weeks Plan: Start with serratus anterior strengthening, RTC strengthening. work on controlled shuolder movements focusing on shoulder/scapular positoning. - Subjective Findings: Pt. is here today for her initial evaluation with diagnosis of L scapular dysfunction. Pt. has a history of L shoulder pain stemming from a L clavicle fracture with ORIF that ultimately failed after removal. Pt. reprots increased pain at atnerior shoulder, lateral deltoid and medial/superior corner of scapulea. Pt. reports having a increased mast at middle deltoid region, checked by physician. Pt. is active gym goer and active cyclist. Pt. reports no mech of injury for recent increase in symptoms. Pt. is hopeful to reduce symptoms in order to get back to all recreational and gym activities without limitations. - Pain L anterior shoulder Pain Intensity (Out of 10): 2 Pain Intensity Range: 0, 4 L lateral deltoid region Pain Intensity (Out of 10): 2 Pain Intensity Range: 0, 5 Superior aspect of scapulea Pain Intensity (Out of 10): 3 Pain Intensity Range: 0, 5 - Objective POSTURE: Pt. has obvious non union mid clavicle, likely due to old fracture. PALPATION: Pt. has tenderness along clavicle, pain at levator scap insertion, TTP along medial boarder of scapulea, TTP at medial deltoid. Pt. has cyst like formation at medial deltoid. NEURO: normal throughout bilateral UEs. ROM: Pt. has full ROM of BUE without issues. Pt. has tenderness at full abduction, but no increase in symptoms otherwise. Pt. does have marked winging of her L scapulea at rest and with any overhead motions. MMT: Pt. has general weakness of BUE, L worse than R. L 4+/5, R 5-/5. SHe does have 4-/5 strength of scapulea stability, 4-/5 strength of serratus anterior. - Goals Goal 1:: Pt. to be I with HEP. Goal Time Frame: 4-6 Weeks Goal 2:: Pt. to have improved scaplar kinematics with all overhead movements. Goal Time Frame: 4-6 Weeks Goal 3:: Pt. to sleep throughout the night without increase in symptoms. Goal Time Frame: 4-6 Weeks Goal 4:: Pt. to have increased serratus anterior strength by 1/2 grade. Goal Time Frame: 4-6 Weeks Goal 5:: Pt. to resume all recreational activities including gym exercises without increase in symptoms. Goal Time Frame: 4-6 Weeks - Rehabilitation Potential Physical Therapy Diagnosis: Pt. has signs and symptoms consistent of L scapular dysfunction, mostly notably with serratus anterior weakness resulting in marked winging of L scapula. Pt. would benefit from PT to increase stability of L shoulder and increase serratus anterior strength allowing for better scapular kinematics with all overhead movements. Rehabilitation Potential: Good - Anticipated Interventions Patient/Client Instruction: Educate patient on: Condition, Plan of Care, Risk Factors, Benefits of Fitness Program For the Purpose of:: To improve decision making, To facilitate caregiver knowledge, To improve self management, To prevent re-injury, To improve ability to perform tasks related to life management, To improve tolerance to ADL's Therapeutic Exercise to Include: Strength training, Endurance training, Balance training, Postural training, Flexibilty training, Passive ROM, Active ROM, Dynamic Lumbar Stabilization, Scapular Strength/Stabilization For the Purpose of:: To decrease pain, To increase ROM, To improve nutrient delivery to tissue, To increase oxygenation perfusion, To improve muscle performance and motor function, To improve ability to perform ADL's, To increase tolerance to activity/condition/position, To improve health of tissue, To decrease soft tissue restriction, To increase flexibility/ROM Thank you for the opportunity to evaluate your patient. For Medicare and Medicare HMO plans, please review the plan of care and approve it. It will need to be FAXED BACK to us at [phone] for Medicare purposes. For Medicare only, by signing this I certify the plan of care. Please let me know if there are questions or concerns regarding this plan of care. Physician Signature: D ate:
--- NOTE | 2019-12-16 11:54 | HP.PTREVAL ---
Pablo Bass MD, It has been my pleasure to treat KATHRIN BRAVO over the last 4 visits for L scapular dysfunction. Please see the progress note below for an update on the physical therapy plan of care! Subjective: Pt. reports overall doing better, but still has some pain at anterior shoulder, in her arm pit and at L thumb and index finger. Pt. reports tingling in her L arm at times as well. Objective/Function: Pt. did well with PT this date. Pt. had abolishment of thumb pain with cervical traction, and reduction of shoulder pain with lat DFM with mobility, thoraicc mobility and end range shoulder stretching. Pt. tolerated all PT. Pt. appears to have signs of cervical dysfunction and L shoulder tighness of lat along with T/S stiffness. Pt. given HEP to work on above limitations. Pt. consents. Plan Plan: Pt. to trial exercises on own and follow up iwth PT if needed. Pt. is doing better with L shoulder ROM and thoracic mobility. Goals Goal 1:: Pt. to be I with HEP. Goal Time Frame: 4-6 Weeks Goal Progress: Goal Met Goal 2:: Pt. to have improved scaplar kinematics with all overhead movements. Goal Time Frame: 4-6 Weeks Goal Progress: Progressing Goal 3:: Pt. to sleep throughout the night without increase in symptoms. Goal Time Frame: 4-6 Weeks Goal 4:: Pt. to have increased serratus anterior strength by 1/2 grade. Goal Time Frame: 4-6 Weeks Goal Progress: Goal Met Goal 5:: Pt. to resume all recreational activities including gym exercises without increase in symptoms. Goal Time Frame: 4-6 Weeks Goal Progress: Progressing Anticipated Interventions Patient/Client Instruction: Educate patient on: Condition, Plan of Care, Risk Factors, Benefits of Fitness Program For the Purpose of:: To improve decision making, To facilitate caregiver knowledge, To improve self management, To prevent re-injury, To improve ability to perform tasks related to life management, To improve tolerance to ADL's Therapeutic Exercise to Include: Strength training, Endurance training, Balance training, Postural training, Flexibilty training, Passive ROM, Active ROM, Dynamic Lumbar Stabilization, Scapular Strength/Stabilization For the Purpose of:: To decrease pain, To increase ROM, To improve nutrient delivery to tissue, To increase oxygenation perfusion, To improve muscle performance and motor function, To improve ability to perform ADL's, To increase tolerance to activity/condition/position, To improve health of tissue, To decrease soft tissue restriction, To increase flexibility/ROM Please do not hesitate to contact me at [phone] by phone or if you have questions or concerns regarding this new plan of care! Sincerely, MABLE VerdinT
--- NOTE | 2020-04-28 14:46 | HP.PTDCNRP_ITS ---
KATHRIN BRAVO was seen in my office for initial evaluation on 10/02/19. The following Plan of Care was established for this patient: Initial Frequency: 1-2x /Week Initial Duration: 4-6 Weeks Patient/Client Instruction: Educate patient on: Condition, Plan of Care, Risk Factors, Benefits of Fitness Program For the Purpose of:: To improve decision making, To facilitate caregiver knowledge, To improve self management, To prevent re-injury, To improve ability to perform tasks related to life management, To improve tolerance to ADL's Therapeutic Exercise to Include: Strength training, Endurance training, Balance training, Postural training, Flexibilty training, Passive ROM, Active ROM, Dynamic Lumbar Stabilization, Scapular Strength/Stabilization For the Purpose of:: To decrease pain, To increase ROM, To improve nutrient deli very to tissue, To increase oxygenation perfusion, To improve muscle performance and motor function, To improve ability to perform ADL's, To increase tolerance to activity/condition/position, To improve health of tissue, To decrease soft tissue restriction, To increase flexibility/ROM This patient was last seen in our office 01/15/20. Pertinent comments regarding their Physical therapy will appear below: Pt. was seen for her scapular dysfucntion. Pt. did well with end range of stretching and RTC stability exercises. Pt. has not been seen in several months, but was seen for DN. Pt. will be DC from PT at this point in time. At this point I will be discontinuing this patient from physical therapy. I would be happy to see this patient again in the future if found appropriate by the physician. Thank you! Marshall Meredith, PAOLA
--- NOTE | 2020-04-28 14:47 | HP.PT.NRP(2) ---
KATHRIN Hugo SHELLY was seen in my office for initial evaluation on . The following Plan of Care was established for this patient: Plan from Re-Evaluation: Progress with DN as able. This patient was last seen in our office . Pertinent comments regarding their Physical therapy will appear below: Pt. was seen in DN for her L shoulder. Pt. will DC from PT at this point in time. At this point I will be discontinuing this patient from physical therapy. I would be happy to see this patient again in the future if found appropriate by the physician. Thank you! Marshall Meredith, MABLET
== END 2020-04-22 19:00 | disposition home or self-care (01) ==
LOC: PT 12:30
PROVIDERS: Family Provider Family Medicine; PCP Family Medicine; Visit Provider Family Medicine
DX: M89.8X1 Other specified disorders of bone, shoulder (principal); M62.81 Muscle weakness (generalized)
CPT/HCPCS: 97110; 97140; 97161

== ENCOUNTER → 2020-05-26 10:38 | Outpatient (CLI) | payer MEDICARE, SELFPAY ==
[2020-04-14 14:49] VITALS: BMI 20.4
--- NOTE | 2020-05-26 10:41 | BI_ITS ---
MAMMOGRAPHY - BILATERAL SCREENING REASON FOR EXAM: Female, 69 years old. Routine annual screening examination. PERTINENT HISTORY: Non-contributory. TECHNIQUE: Digital bilateral breast [place] (3D mammographic acquisition) in the CC and MLO projections. 2-D mediolateral oblique (MLO) and craniocaudad (CC) views of both breasts were obtained. CAD: Full Field Digital Mammography with Computer Added Detection was performed. COMPARISON: Comparison is made with prior study dated 05/23/2019 and 02/20/2018. FINDINGS: Breast Composition: The breasts are heterogeneously dense, which may obscure small masses. There are no dominant masses or suspicious calcifications. Stable small benign appearing bilateral axillary lymph nodes. No other significant abnormalities are identified. There has been no significant change since the prior study. BI/SCREEN MAMM (CAD) W/R[place]D BILAT IMPRESSION: Stable bilateral screening mammogram. Yearly follow-up mammogram recommended. (A) ASSESSMENT CATEGORY: BIRADS Category 2: Benign. A letter regarding these results will be sent to the patient by the facility within 30 days. Approximately 10% of breast cancers are not detected by mammography. A normal mammogram should not delay biopsy of a clinically suspicious abnormality. [id number] Electronically Signed: Ajay Lai, at 13:32 EDT , Service support ,
== END ==
PROVIDERS: PCP Internal Medicine; Referring Provider Internal Medicine; Visit Provider Internal Medicine
DX: Z12.31 Encounter for screening mammogram for malignant neoplasm of breast (principal)
CPT/HCPCS: 77063; 77067

== ENCOUNTER 2020-09-07 10:00 | Outpatient (RCR) | payer MEDICARE, SELFPAY ==
[2020-04-14 14:49] VITALS: BMI 20.4
== END 2020-09-07 19:00 | disposition home or self-care (01) ==
LOC: PT 10:00
PROVIDERS: PCP Internal Medicine
DX: M89.8X1 Other specified disorders of bone, shoulder (principal); M62.81 Muscle weakness (generalized)

== ENCOUNTER → 2020-11-09 12:27 | Outpatient (CLI) | payer MEDICARE, SELFPAY ==
[2020-08-19 11:45] VITALS: BMI 20.4
--- NOTE | 2020-11-09 12:38 | MRI_ITS ---
STUDY: MRI BRAIN WITHOUT CONTRAST REASON FOR EXAM: Female, 70 years old. family hx brain aneurysm, MAYS''S x 1 year TECHNIQUE: Standardized multiplanar fat and water weighted pulse sequences were obtained. COMPARISON: None. FINDINGS: Normal size of the ventricles and extra-axial spaces for the patient''s age. Normal white matter tracts of the supratentorial brain. Normal bilateral basal ganglia. Normal thalami. There is no extra-axial fluid accumulation. Normal flow voids within the major intracranial circulation suggesting patency by spin echo criteria. Normal sella turcica, pituitary gland, infundibular stalk, optic chiasm and hypothalamus. Normal tectal plate and pineal gland. Normal midbrain, kirt and medulla. Normal cerebellum. Normal basal cisterns. Normal bilateral temporal bones. Normal bilateral internal auditory canals. No demonstrated orbital abnormality, within the constraints of a routine brain study. Normal visualized paranasal sinuses. Normal calvarium and skull base. Normal visualized soft tissue structures. Normal visualized upper cervical spine. MRI/Brain without Contrast IMPRESSION: Normal unenhanced MRI of the brain. Electronically Signed: Eric Campos MD at 16:45 EST , Service support ,
--- NOTE | 2020-11-09 12:38 | MRI_ITS ---
STUDY: MRA OF THE HEAD WITHOUT CONTRAST REASON FOR EXAM: Female, 70 years old. family hx brain aneurysm, MAYS''S x 1 year TECHNIQUE: 3-D [id number] (TOF) imaging was performed with MIPs. The study was performed unenhanced. COMPARISON: None. FINDINGS: Normal bilateral petrous carotid arteries. Normal right cavernous carotid artery with a normal supraclinoid bifurcation. Normal left cavernous carotid artery with a normal supraclinoid bifurcation. Normal right A1 segments of the anterior cerebral artery. Normal left A1 segments of the anterior cerebral artery. Normal intact anterior communicating artery (ACOM). Normal bilateral A2 segments of the anterior cerebral arteries. Normal right M1 and M2 segments of the middle cerebral arteries, with a normal M1 bifurcation. Normal left M1 and M2 segments of the middle cerebral arteries, with a normal M1 bifurcation. Posterior communicating arteries aren''t visualized consistent with normal developmental variant Normal bilateral vertebral arteries. Normal basilar artery with a normal basilar bifurcation. The visualized bilateral superior cerebellar (SCA) arteries are normal. Normal bilateral P1, P2 and visualized P3 segments of the posterior cerebral arteries. There is no demonstrated aneurysm of the [place]. There is no major vessel occlusion or hemodynamically significant stenosis. There is no demonstrated abnormality of the visualized brain. MRI/MRA Head ONLY without Contrast IMPRESSION: Normal MRA of the head Electronically Signed: Eric Campos MD at 16:48 EST , Service support ,
== END ==
PROVIDERS: PCP Internal Medicine; Referring Provider Internal Medicine; Visit Provider Internal Medicine
DX: R51.9 Headache, unspecified (principal); Z82.49 Family history of ischemic heart disease and other diseases of the circulatory system
CPT/HCPCS: 70544; 70551

== ENCOUNTER 2020-12-10 15:30 | Outpatient (RCR) | payer SELFPAY ==
[2020-08-19 11:45] VITALS: BMI 20.4
== END 2020-12-10 19:00 | disposition home or self-care (01) ==
LOC: PT 15:30
PROVIDERS: PCP Internal Medicine
DX: R69 Illness, unspecified (principal)

== ENCOUNTER 2021-03-24 20:02 | Inpatient (IN) | payer MEDICARE, SELFPAY ==
[2020-08-19 11:45] VITALS: BMI 20.4
[2021-03-24 20:09] VITALS: BP 147/89; PULSE 91; RESP 16; TEMP 36.6; O2SAT 98
[2021-03-24] MEDS: Lactated Ringers 1,000 ML 125 ML IV (20:49)
--- NOTE | 2021-03-24 20:52 | RAD_ITS ---
HISTORY: NG tube placement EXAMINATION/TECHNIQUE: XR Abdomen 1 View: COMPARISON: CT abdomen and pelvis earlier same day FINDINGS: LINES AND TUBES: Enteric tube passes well into the stomach. BOWEL GAS PATTERN: Persistent distention of small bowel loops. FREE AIR: Not assessed on a single supine view. ORGANOMEGALY: Not seen. CALCIFICATIONS: No abnormal calcifications observed. LOWER CHEST: No acute pathology. BONES AND SOFT TISSUES: No acute pathology. Urinary contrast in the bilateral renal collecting systems. RAD/Abdomen Single View (Portable) IMPRESSION: Enteric tube in the stomach. at 2141 Reported and signed by: Chuckie Haskins MD Electronically Signed: Chuckie Haskins MD at 21:40 EDT Tel , Service support ,
[2021-03-24 21:02] LABS: Anion Gap 10 (5-15); BUN 17 mg/dL (7-18); BUN/Creat Ratio 22.5 RATIO (10-20); Calcium,Total 9.3 mg/dL (8.5-10.1); Chloride 106 mmol/L (98-107); Creatinine, Serum 0.76 mg/dL (0.55-1.02); EST Glomerular Filtration Rate 80 mL/min (>60); Est Glom Filt Rate - Afr Amer 97 mL/min (>60); Estimated Creatinine Clearance 40.38 ml/min; Glucose 116 mg/dL (74-106); Potassium 4.1 mmol/L (3.5-5.1); Sodium Level 139 mmol/L (136-145)
[2021-03-24 21:08] LABS: Absolute Lymphocyte Count 1.05 X10^3/uL (0.83-4.51); Absolute Neutrophil Count 11.4 X10^3/uL (2.0-7.7); Basophil# 0.03 X10^3/uL; Basophil% 0.2 % (0-1); Hematocrit 40.8 % (37-47); Hemoglobin 13.5 g/dL (12.0-15.0); Lymphocyte # 1.05 X10^3/ul (0.83-4.51); Lymphocyte % 7.8 % (19-41); Mean Corp Hgb Conc 33.1 g/dL (32-36); Mean Corpuscular Hgb 32.3 pg (27.0-32.0); Mean Corpuscular Volume 97.6 fL (81-99); Mean Platelet Vol. 11.2 fl (6.2-12.0); Monocyte# 0.98 X10^3/uL; Monocyte% 7.2 % (0-10); NRBC Flagged by Analyzer 0 % (0-5); Neutrophil % 84.4 % (47-70); Platelet Count 354 K/mm3 (150-450); RBC Distribution Width CV 14.1 % (11.6-14.6); RBC Distribution Width SD 51.1 fl (35.1-43.9); Red Blood Count 4.18 M/mm3 (4.2-5.4); White Blood Count 13.5 K/mm3 (4.4-11.0)
[2021-03-24 21:13] LABS: Lactic Acid 1.4 mmol/L (0.4-1.9)
[2021-03-24 21:20] VITALS: BP 145/78; PULSE 71; RESP 16; TEMP 36.6; O2SAT 98
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
[2021-03-24 21:48] VITALS: BMI 22.0
[2021-03-24 21:49] VITALS: BP 139/69; PULSE 96; RESP 18; TEMP 36.8; O2SAT 97
[2021-03-24] MEDS: Acetaminophen 650 MG Suppository RC (23:09)
[2021-03-25] VITALS (14 sets, daily range): BP systolic 113–144; BP diastolic 63–79; PULSE 73–88; RESP 16–18; TEMP 36.3–37.6; O2SAT 95–100; BMI 22.0
[2021-03-25] MEDS: 0.9% Normal Saline 1,000 ML 100 ML IV ×2 (01:13→12:30)
--- NOTE | 2021-03-25 01:27 | NURSING ---
pt walking hallways x2 laps at this time. tolerated well
--- NOTE | 2021-03-25 01:30 | NURSING ---
ambulated two laps in hallway
--- NOTE | 2021-03-25 01:44 | NURSING ---
0113 pt refused 0100 dose of Pepcid, stating that i don't need it
--- NOTE | 2021-03-25 01:52 | PCM.PN.SRG ---
Subjective Subjective Patient states that at midnight she had a small bowel movement. No significant flatus at that time. She states that compared to 24 hours ago when she was grossly tightly distended she is improved. She did receive rectal Tylenol at approximately midnight. Currently an hour and a half later she states that she has no abdominal pain at rest. Objective Data Objective Data Vital Signs: Vital Signs Temp Pulse Resp BP Pulse Ox 98.2 F 96 18 139/69 H 97 03/24/21 21:49 03/24/21 21:49 03/24/21 21:49 03/24/21 21:49 03/24/21 21:49 Oxygen Delivery Method Room Air Weight: 116 lb 9.6 oz Body Mass Index (BMI) 22.0 Intake & Output: Intake and Output for Last 24 Hours 03/23/21 03/24/21 03/25/21 23:59 23:59 23:59 Intake Total 100 / 100 552.08 / 552.08 Output Total 30 / 30 Balance 100 / 70 522.08 / 522.08 Lab / Micro Data Result Diagrams: 03/24/21 20:40 03/24/21 20:40 Labs: Laboratory Results - last 24 hr 03/24/21 03/24/21 03/24/21 20:40 20:40 20:40 WBC 13.5 H RBC 4.18 L Hgb 13.5 Hct 40.8 MCV 97.6 MCH 32.3 H MCHC 33.1 RDW Std Deviation 51.1 H RDW Coeff of Fuad 14.1 Plt Count 354 MPV 11.2 Immature Gran % (Auto) 0.400 Neut % (Auto) 84.4 H Lymph % (Auto) 7.8 L [place] % (Auto) 7.2 Eos % (Auto) 0.0 Baso % (Auto) 0.2 Absolute Neuts (auto) 11.4 H Absolute Lymphs (auto) 1.05 Nucleated RBC % 0 Sodium 139 Potassium 4.1 Chloride 106 Carbon Dioxide 23.0 Anion Gap 10 BUN 17 Creatinine 0.76 Estim Creat Clear Calc 40.38 Est GFR (MDRD) Af Amer 97 Est GFR (MDRD) Non-Af 80 BUN/Creatinine Ratio 22.5 H Glucose 116 H Lactic Acid 1.4 Calcium 9.3 Radiography Diagnostic Testing: Radiology Impression KUB X-Ray 06/09/21 20:52 IMPRESSION: Enteric tube in the stomach. at 2141 Reported and signed by: Chuckie Haskins MD Electronically Signed: Chuckie Haskins MD at 21:40 EDT Tel , Service support , Physical Exam GI GI Narrative: Abdomen is soft, or as previously bowel sounds are absent there are a few nonspecific bowel sounds, nontender to even deep palpation, no rebound or guarding Assessment & Plan Assessment/Plan (1) Small bowel obstruction: PLAN: The patient's laboratory includes a white count of approximately 13,000 and a lactic acid level of 1.4. Both of these essentially are the same as earlier today. The patient states that clinically her abdomen was improved. The abdominal x-ray obtained for NG tube placement demonstrates persistent dilatation of small bowel in the left upper quadrant. I have personally reviewed these images and this dilated small bowel was present but does not appear to be severely distended. The patient is continue to receive IV hydration. Clinically her abdominal exam is benign. We will keep very close observation due to the potential of a internal hernia. Her NG tube output is very minimal. This may correlate with improvement or this may correlate with a closed-loop obstruction. Patient's had an opportunity to ask and have questions answered. She states that she has not needed any pain medication at this time. Her primary complaint is 1 of a headache which she has had all day. Again she denies any abdominal pain at this moment. Terry Tavarez M.D., F.A.C.S.
--- NOTE | 2021-03-25 04:39 | NURSING ---
0415 pt refusing to walk hallways at this time, stating: i just want to sleep
--- NOTE | 2021-03-25 05:00 | RAD_ITS ---
STUDY: X-RAY - ABDOMEN/PELVIS REASON FOR EXAM: Female, 70 years old. Small bowel obstruction TECHNIQUE: Single AP view of the abdomen / pelvis. COMPARISON: 03/24/2021 FINDINGS: There is elevation of the bilateral hemidiaphragms. Degenerative is present the tip is in the stomach however the side-port is at the gastroesophageal junction. This should be advanced. There are multiple distended loops of small bowel in the left upper quadrant. Compared to prior study there is slightly greater distention of the right lower quadrant small bowel loops. There is visualization residual contrast within the bladder from a CT scan 03/24/2021. The liver spleen and kidneys are mostly obscured.. There is calcification in the right lower lobe compatible with old granulomatous disease. Normal soft tissue structures. There are diffuse degenerative changes of the visualized lumbar spine. RAD/Abdomen Single View (Portable) IMPRESSION: Findings are suspicious for persistent small bowel obstruction . Electronically Signed: Kita Castro MD at 6:01 EDT Tel , Service support ,
[2021-03-25 05:13] LABS: Absolute Lymphocyte Count 1.38 X10^3/uL (0.83-4.51); Absolute Neutrophil Count 9.6 X10^3/uL (2.0-7.7); Basophil# 0.03 X10^3/uL; Basophil% 0.2 % (0-1); Eosinophil# 0.01 X10^3/uL; Eosinophils% 0.1 % (0-5); Hematocrit 37.7 % (37-47); Hemoglobin 12.5 g/dL (12.0-15.0); Lymphocyte # 1.38 X10^3/ul (0.83-4.51); Lymphocyte % 11.1 % (19-41); Mean Corp Hgb Conc 33.2 g/dL (32-36); Mean Corpuscular Hgb 32.5 pg (27.0-32.0); Mean Corpuscular Volume 97.9 fL (81-99); Mean Platelet Vol. 10.1 fl (6.2-12.0); Monocyte# 1.41 X10^3/uL; Monocyte% 11.3 % (0-10); NRBC Flagged by Analyzer 0 % (0-5); Neutrophil # 9.57 X10^3/uL (2.7-7.7); Platelet Count 304 K/mm3 (150-450); RBC Distribution Width SD 50.9 fl (35.1-43.9); Red Blood Count 3.85 M/mm3 (4.2-5.4); White Blood Count 12.4 K/mm3 (4.4-11.0)
--- NOTE | 2021-03-25 05:13 | NURSING ---
pt up and walking halls at this time
[2021-03-25 05:26] LABS: Anion Gap 8 (5-15); BUN 21 mg/dL (7-18); BUN/Creat Ratio 31.6 RATIO (10-20); Calcium,Total 8.4 mg/dL (8.5-10.1); Chloride 109 mmol/L (98-107); Creatinine, Serum 0.66 mg/dL (0.55-1.02); EST Glomerular Filtration Rate 93 mL/min (>60); Est Glom Filt Rate - Afr Amer 112 mL/min (>60); Estimated Creatinine Clearance 38.37 ml/min; Glucose 113 mg/dL (74-106); Potassium 4.2 mmol/L (3.5-5.1); Sodium Level 141 mmol/L (136-145)
[2021-03-25 05:34] LABS: Lactic Acid 0.7 mmol/L (0.4-1.9)
--- NOTE | 2021-03-25 05:57 | PN.SURG_ITS ---
Subjective Subjective Patient has been able to walk. Small bowel movement last night midnight. No flatus. She is complaining of nausea. No real abdominal pain. Objective Data Objective Data Vital Signs: Vital Signs Temp Pulse Resp BP Pulse Ox 99.0 F 88 18 118/68 95 03/25/21 04:12 03/25/21 04:12 03/25/21 04:12 03/25/21 04:12 03/25/21 04:12 Oxygen Delivery Method Room Air Weight: 116 lb 9.6 oz Body Mass Index (BMI) 22.0 Intake & Output: Intake and Output for Last 24 Hours 03/23/21 03/24/21 03/25/21 23:59 23:59 23:59 Intake Total 100 / 100 612.08 / 612.08 Output Total 230 / 230 Balance 100 / 70 382.08 / 382.08 Lab / Micro Data Result Diagrams: 03/25/21 05:04 03/25/21 05:04 Labs: Laboratory Results - last 24 hr 03/24/21 03/24/21 03/24/21 20:40 20:40 20:40 WBC 13.5 H RBC 4.18 L Hgb 13.5 Hct 40.8 MCV 97.6 MCH 32.3 H MCHC 33.1 RDW Std Deviation 51.1 H RDW Coeff of Fuad 14.1 Plt Count 354 MPV 11.2 Immature Gran % (Auto) 0.400 Neut % (Auto) 84.4 H Lymph % (Auto) 7.8 L [place] % (Auto) 7.2 Eos % (Auto) 0.0 Baso % (Auto) 0.2 Absolute Neuts (auto) 11.4 H Absolute Lymphs (auto) 1.05 Nucleated RBC % 0 Sodium 139 Potassium 4.1 Chloride 106 Carbon Dioxide 23.0 Anion Gap 10 BUN 17 Creatinine 0.76 Estim Creat Clear Calc 40.38 Est GFR (MDRD) Af Amer 97 Est GFR (MDRD) Non-Af 80 BUN/Creatinine Ratio 22.5 H Glucose 116 H Lactic Acid 1.4 Calcium 9.3 03/25/21 03/25/21 03/25/21 05:04 05:04 05:04 WBC 12.4 H RBC 3.85 L Hgb 12.5 Hct 37.7 MCV 97.9 MCH 32.5 H MCHC 33.2 RDW Std Deviation 50.9 H RDW Coeff of Fuad 14.0 Plt Count 304 MPV 10.1 Immature Gran % (Auto) 0.300 Neut % (Auto) 77.0 H Lymph % (Auto) 11.1 L Stan[place] % (Auto) 11.3 H Eos % (Auto) 0.1 Baso % (Auto) 0.2 Absolute Neuts (auto) 9.6 H Absolute Lymphs (auto) 1.38 Nucleated RBC % 0 Sodium 141 Potassium 4.2 Chloride 109 H Carbon Dioxide 24.0 Anion Gap 8 BUN 21 H Creatinine 0.66 Estim Creat Clear Calc 38.37 Est GFR (MDRD) Af Amer 112 Est GFR (MDRD) Non-Af 93 BUN/Creatinine Ratio 31.6 H Glucose 113 H Lactic Acid 0.7 Calcium 8.4 L Radiography Diagnostic Testing: Radiology Impression KUB X-Ray 03/24/21 20:52 IMPRESSION: Enteric tube in the stomach. at 2141 Reported and signed by: Chuckie Haskins MD Electronically Signed: Chuckie Haskins MD at 21:40 EDT Tel , Service support , Physical Exam GI GI Narrative: Unchanged, softly distended, minimal nonspecific bowel sounds, no focal tenderness Assessment & Plan Assessment/Plan (1) Small bowel obstruction: PLAN: 70-year-old female with persistent small bowel obstruction. Clinically she appears stable. Abdominal x-rays demonstrate slightly improved but persistent dilatation of small bowel in the left upper quadrant. There is now more small bowel seen in the right mid abdomen on plain abdominal x-ray. The colon appears to be devoid of gas. All day yesterday the patient had a dull headache. This may be related to intolerance to antiemetics. On my review I am not seeing any air within the colon. It may be that the small bowel movement that she had was simply colonic evacuation. With the patient's current nausea I do not believe she will tolerate a Gastrografin small bowel follow-through. The unusual appearance on her CT scan suggest possibility of an internal herniation. I recommend to her a laparoscopic exploration with possible laparoscopic repair reduction release of small bowel obstruction. She is aware of the technique, benefit, risk and alternatives. She is aware that conversion to open technique may be required. She is aware the bowel resection may be required. Her primary concern regards anesthesia. She states 5 weeks ago when she had a left clavicle fracture treated that she had a very poor anesthesia experience. We will schedule OR timing permits today. Terry Tavarez M.D., F.A.C.S.
--- NOTE | 2021-03-25 07:00 | EKG12_ITS ---
Test Reason : PREOP Blood Pressure : / mmHG Vent. Rate : 081 BPM Atrial Rate : 081 BPM P-R Int : 168 ms QRS Dur : 080 ms QT Int : 374 ms P-R-T Axes : 068 040 082 degrees QTc Int : 434 ms Normal sinus rhythm Nonspecific T wave abnormality Abnormal ECG When compared with ECG of 07-AUG-2012 12:06, Nonspecific T wave abnormality now evident in Anterolateral leads Confirmed by THONG FITZPATRICK, ARACELIS ([id number]), practice specialist LOIDA WOOD ([id number]) on 03/30/2021 9:15:47 AM Referred By: JESSENIA Confirmed By:ARACELIS BENITO MD
--- NOTE | 2021-03-25 07:00 | NURSING ---
NG advanced 6 more cm at this time per Cebul's orders
--- NOTE | 2021-03-25 11:15 | CASEMGMT ---
RN CM Face to Face with patient for initial transition planning/care coordination assessment. RN CM introduced self and role at [facility]. Patient lying in bed, alert and oriented, at bedside. Patient willing to participate in assessment and is able to answer all questions appropriately. Care providers, pharmacy, and demographics verified. Patient wishes to discharge home, denies need for home health at this time. Patient states she has no further needs or concerns at this time. CM to follow for discharge planning needs that may arise. PCP: Annamarie Specialists: Eldon stone polisher hand Preferred Pharmacy: [facility] Insurance: [facility] Prescription Benefit: yes Living Will/HPOA: yes, Mayo [place]UNTER[place]: , son Living Arrangements: Patient lives with in a 2 story with bed and bath on first floor. Patient states she is independent at home. Transportation: DME/HHC: Patient states she has shower chair, raised toilet, cane, walker, grab bars. Patient has had [facility]HC in the past. Disposition Plan: Patient to discharge home with family support and follow-up plans in place. Mary KHOURY, RN, CM
--- NOTE | 2021-03-25 11:16 | PN.HOSP_ITS ---
Documented by User: Otis MAGALLANES 03/25/21 11:24 Subjective Subjective Patient is a 70-year-old female comfortably resting in bed, alert and oriented x3. Patient reports subjective improvement in her symptoms from yesterday in regards to headache and abdominal distention. Denies chest pain, shortness of breath, palpitations, hemoptysis, fever, chills, N/V/D. Objective Data Objective Data Vital Signs: Vital Signs Temp Pulse Resp BP Pulse Ox 98.1 F 76 16 116/70 96 03/25/21 10:12 03/25/21 10:12 03/25/21 10:12 03/25/21 10:12 03/25/21 10:30 Oxygen Delivery Method Room Air Weight: 116 lb 9.6 oz Body Mass Index (BMI) 22.0 Intake & Output: Intake and Output for Last 24 Hours 03/23/21 03/24/21 03/25/21 23:59 23:59 23:59 Intake Total 100 / 100 1642.08 / 1642.08 Output Total 380 / 380 Balance 100 / 70 1262.08 / 1262.08 Lab / Micro Data Result Diagrams: 03/25/21 05:04 03/25/21 05:04 Labs: Laboratory Results - last 24 hr 03/24/21 03/24/21 03/24/21 20:40 20:40 20:40 WBC 13.5 H RBC 4.18 L Hgb 13.5 Hct 40.8 MCV 97.6 MCH 32.3 H MCHC 33.1 RDW Std Deviation 51.1 H RDW Coeff of Fuad 14.1 Plt Count 354 MPV 11.2 Immature Gran % (Auto) 0.400 Neut % (Auto) 84.4 H Lymph % (Auto) 7.8 L [place] % (Auto) 7.2 Eos % (Auto) 0.0 Baso % (Auto) 0.2 Absolute Neuts (auto) 11.4 H Absolute Lymphs (auto) 1.05 Nucleated RBC % 0 Sodium 139 Potassium 4.1 Chloride 106 Carbon Dioxide 23.0 Anion Gap 10 BUN 17 Creatinine 0.76 Estim Creat Clear Calc 40.38 Est GFR (MDRD) Af Amer 97 Est GFR (MDRD) Non-Af 80 BUN/Creatinine Ratio 22.5 H Glucose 116 H Lactic Acid 1.4 Calcium 9.3 03/25/21 03/25/21 03/25/21 05:04 05:04 05:04 WBC 12.4 H RBC 3.85 L Hgb 12.5 Hct 37.7 MCV 97.9 MCH 32.5 H MCHC 33.2 RDW Std Deviation 50.9 H RDW Coeff of Fuad 14.0 Plt Count 304 MPV 10.1 Immature Gran % (Auto) 0.300 Neut % (Auto) 77.0 H Lymph % (Auto) 11.1 L [place] % (Auto) 11.3 H Eos % (Auto) 0.1 Baso % (Auto) 0.2 Absolute Neuts (auto) 9.6 H Absolute Lymphs (auto) 1.38 Nucleated RBC % 0 Sodium 141 Potassium 4.2 Chloride 109 H Carbon Dioxide 24.0 Anion Gap 8 BUN 21 H Creatinine 0.66 Estim Creat Clear Calc 38.37 Est GFR (MDRD) Af Amer 112 Est GFR (MDRD) Non-Af 93 BUN/Creatinine Ratio 31.6 H Glucose 113 H Lactic Acid 0.7 Calcium 8.4 L Micro: Microbiology 03/25/21 08:55 Mucosa - Nasopharyngeal SARS-CoV-2 Antigen (Rapid) - Final Radiography Diagnostic Testing: Radiology Impression KUB X-Ray 03/24/21 20:52 IMPRESSION: Enteric tube in the stomach. at 2141 Reported and signed by: Chuckie Haskins MD Electronically Signed: Chuckie Haskins MD at 21:40 EDT Tel , Service support , KUB X-Ray 03/25/21 05:00 IMPRESSION: Findings are suspicious for persistent small bowel obstruction . Electronically Signed: Kita Castro MD at 6:01 EDT Tel , Service support , Physical Exam Narrative See subjective. Const alert, oriented x3 and no apparent distress HEENT head/scalp atraumatic, moist oral mucous membranes and oropharynx normal HEENT Narrative: NG tube inserted into the left nostril currently suctioning brown liquid with sediment. Head and Scalp: normocephalic Eyes PERRL, EOMs intact bilaterally and conjunctivae normal Neck no lymphadenopathy, supple and no JVD Resp normal respiratory effort, no retractions and no use of accessory muscles Cardio regular rate, regular rhythm, no murmurs and no JVD GI normal to inspection, nondistended, normoactive bowel sounds, soft to palpation, non-tender and non-distended Extremity normal to inspection, full ROM and no clubbing, cyanosis or edema Skin no rashes or lesions noted, no wounds and skin turgor normal Neuro CN's II-XII intact bilaterally Psych affect normal Assessment & Plan Assessment/Plan (1) Small bowel obstruction: (2) HTN (hypertension): PLAN: See subjective for patient presentation. This provider is seeing this patient on consult from the general surgery team status post NG tube insertion for SBO. 1) SBO NG tube inserted into the left nostril suctioning brown fluid with sediment. Exploratory laparoscopy scheduled for 03/25. 2) HTN Stable. Hypertensive regimen currently on hold due to n.p.o. status. Continue to monitor, hydralazine IV as needed. DVT prophylaxis - not indicated Patient seen by Otis Baeza PA-C, under the supervision of Dr. Yee. Documented by User: Dr. Leti Yee MD 03/25/21 14:09 Objective Data Lab / Micro Data Result Diagrams: 03/25/21 05:04 03/25/21 05:04 Charges/Coding Addendum Addendum: This patient was seen in conjunction with ELPIDIO Capps. I have independently interviewed and examined the patient and reviewed pertinent historical, laboratory, and other data. Please refer to ELPIDIO Capps's note for his patient's presentation, findings, and recommendations. I have reviewed and his note and concur with his documentation Patient was seen and examined. She is going for laparoscopic exploration with possible laparoscopic repair reduction release of small bowel obstruction today. Denies fever, chills, SOB. Physical Exam: Gen: Looks in some discomfort, not pale, not jaundiced, well hydrated CVS:HS I +II, regular, no murmurs RESP: Diminished at lung bases GI: BS present and normal, soft, nontender, no palpable organs EXT:No edema ASSESSMENT: 1. Acute small bowel obstruction 2. Hypertension Plan: Continue on IVF Will follow-up on surgical recommendations. Visit Charges Inpatient E&M: 12876 Subs Hosp L2
--- NOTE | 2021-03-25 11:35 | RAD_ITS ---
STUDY: X-RAY - ABDOMEN/PELVIS REASON FOR EXAM: Female, 70 years old. x ray -- abd supine and upright x ray TECHNIQUE: AP supine and upright views of the abdomen and pelvis. COMPARISON: 03/25/2021 at 04 36 FINDINGS: Nasogastric tube with the tip in the right upper quadrant likely in the antrum of the stomach or the duodenal bulb. Multiple loops of mildly dilated air-filled small bowel primarily in the left upper quadrant may represent a partial small bowel obstruction or focal ileus possibly from pancreatitis or left-sided pyelonephritis. There is no demonstrated free abdominal air. The visualized liver, spleen and kidneys are grossly normal in size and morphology. Normal soft tissue structures. Normal visualized osseous structures. RAD/Abd Decub and/or Erect(Portabl IMPRESSION: 1. Nasogastric tube with the tip in the right upper quadrant likely in the antrum the stomach or the duodenal bulb. 2. No change in mild small bowel obstruction or focal ileus in the left upper quadrant. 3. No pneumoperitoneum. Electronically Signed: Ramos Abdi MD at 12:04 EDT Tel , Service support ,
--- NOTE | 2021-03-25 11:45 | CHAPLAIN ---
Type of Pastoral Visit _x__ Initial Visit ___ Follow-up Visit ___ On-call Visit ___ General Patient Visit ___ Spiritual Assessment ___ Family Conference ___ Bereavement ___ Rapid Response ___ Code Blue ___ Other (describe below) Pastoral Care Referral From _x__ Patient ___ Family ___ Nurse ___ Physician ___ Heating And Cooling Systems Engineer ___ Counsellors ___ Other (describe below) Sacrament/Intervention ___ Active listening ___ Anointing ___ Latter Day ___ Bereavement ___ Communion ___ Makenna exploration ___ ___ Life review ___ Prayer ___ Reconciliation ___ Sacrament of Sick _x__ Supportive presence ___ Wedding ___ Other (describe below) Pastoral Comments pre surgery visit
--- NOTE | 2021-03-25 11:57 | PCM.PN.BLA ---
Progress Note Despite liquid explosive stool abdominal x-ray continues to demonstrate multiple loops of dilated small bowel with thickened mack. We will proceed with laparoscopic exploration with conversion to open procedure if indicated. Unfortunately the operating room is running significantly declined. This procedure will be delayed secondary to the OR scheduling. Terry Tavarez M.D., F.A.C.S.
--- NOTE | 2021-03-25 16:00 | TISS_PTH ---
PATIENT: KATHRIN BRAVO LOC: [facility]3 U#:[id number] AGE/SX: 70/F ROOM: [facility] RE03/24/[address]: Dr. Leti Yee MD : [id number] BED: 1 DIS: 03/27/2021 SPEC #: [id number] RECD: 03/26/21 10:05 STATUS: DAMIAN WHEATJoseluis #: [id number] JAVY: 03/25/21 16:[address]: Terry Tavarez DEPT: SURGICAL PATHOLOGY RECD BY: Kim Redman ENTERED: 03/26/21 10:20 SP TYPE: Tissue Bx OTHR DR: MD Dr. Maritza Faulkner MD Dr. Joseph Agyepong, MD Dr. Robert D Cebul, MD Tissues: A - MECKEL'S DIVERTICULUM B - APPENDIX (INCIDENTAL) Procedures: Surgery Specimen Level III Comments: @ Ordering doctor for SUIII edited from to @ trini MICHAEL at 03/26/21 1343 @ Ordering doctor for SUIV edited from to @ trini MICHAEL at 03/26/21 1343 @ Submitting doctor edited from to @ trini MICHAEL at 03/26/21 1343 HEADER OPERATION: Exploratory laparoscopy, SBO PRE-OP DIAGNOSIS: Small bowel obstruction TISSUE SUBMITTED: A - Meckel?s/adhesion, B - Appendix MICROSCOPIC DIAGNOSIS A. Meckel?s/adhesions: Pieces of fibroadipose and fibroconnective tissue with chronic inflammation and reactive changes, consistent with adhesion. B. Appendix, appendectomy: Appendix, no pathologic diagnosis. SJ:lupe 03/29/2021 COMMENT A. Mucosal tissue is not seen in the specimen. Case has been reviewed in consultation with Dr. Magana who concurs with the above diagnosis. IDC:AM MICROSCOPIC DESCRIPTION Slides are reviewed. GROSS DESCRIPTION A - Received in fixative is one container labeled with the patient's name and designated Meckel's/ adhesion. The specimen consists of two irregular fragments of light krishna-yellow soft tissue that in aggregate measure 3 x 2.5 x 0.6 cm. Metallic vipin are present. Most of the tissue adherent to metallic vipin is submitted in one cassette. B - Received in fixative is one container labeled with the patient's name and designated appendix. The specimen consists of an appendix measuring 5 cm in length and up to 0.7 cm in diameter. No gross perforations are evident. The specimen is sectioned and totally submitted in one cassette. / AM:lupe 03/26/21 TC: 5 CPT: 81786 x2
[2021-03-25] MEDS: Lactated Ringers 1,000 ML 100 ML IV ×2 (16:15→21:37)
--- NOTE | 2021-03-25 16:29 | PCM.OPRPT ---
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 Incidental appendectomy. Description of Surgical Findings:: Timeout and informed consent was obtained. 70-year-old female was taken to the operating placed supine on the table underwent general endotracheal intubation anesthesia. Cefotetan 2 g were given intravenously preoperatively. The abdomen was sterilely prepped and draped. 0.5% Marcaine was used as a local anesthetic. Throughout the procedure total 30 cc was used. Skin sites were preanesthetized. A vertical infraumbilical incision was created sharp dissection carried down through the subcutaneous tissues direct access was gained to the peritoneum Catheter was inserted the abdomen was insufflated with CO2 to a pressure of 10 mmHg pressure. The patient became bradycardic and 3 times the abdomen and had to be deflated to allow for anesthesia to provide bradycardic relief. Finally the patient was insufflated to 10 mmHg pressure. 5 mm trocar sites were placed in the right lower 4 quadrants. The small bowel was generally dilated. The majority of the dilatation was the left upper quadrant the right mid abdomen was much less dilated. I was able to find the ligament of Treitz and started inspecting and carefully running the bowel with noncrushing graspers. Tediously ran the entire bowel this was quite challenging due to the multiple dilated loops and distention. I finally was able to make my way all the way to the terminal ileum. Upon so doing and upon manipulating the terminal ileum there appeared to be a release and then further inspection revealed what appeared to be consistent with a Meckel's diverticulum adhesive band. Was a very small bandlike structure that went from the terminal ileum to the ileocecal valve area. I secured that with a noncrushing grasper then made a mini infraumbilical laparotomy of approximately 4 cm I was able to advance the involved area over to the midline where I could visualize it. I used a DOMO stapler to transect the tissue flush with the involved portion of ileum. That was hemostatic and was placed back within. It was this a band that had formed an internal hernia. In addition however there was a secondary band right at the ileocecal valve attached to the mesentery. I sharply incised that with immediate release right at the ileocecal valve. I then used a DOMO 55 stapler to transect that tissue as it seemed to be intimately attached to at the ileocecal valve. It was not clear to me that this was nonenteric tissue. Finally as I was in the location I would like to do an incidental appendectomy. The mesoappendix was secured with a 0 Vicryl suture ligature. A DOMO stapler was used to transect the appendix and resected. The bowel all appeared to be viable. The mesentery appeared to be viable. Blood loss was minimal. The the colon was markedly decompressed. The small bowel significantly dilated. No evidence of any spillage. The bowel was placed back within the abdomen. The mini laparotomy midline incision was closed with a running 0 PDS. Where needed subcutaneous and fascia was anesthetized with 0.5% Marcaine. Skin edges were approximated simple interrupted or running septic or 4-0 Monocryl. Steri-Strips Telfa OpSite dressings applied. Sponge and instrument and needle counts were reported to the surgeon to be correct. Specimen includes adhesive band/suspected Meckel's tissue. Appendix. Drains none. Blood loss minimal. The patient was taken to the recovery area in satisfactory addition without apparent complication. Terry Tavarez M.D., F.A.C.S. Surgeon: Terry Tavarez Type of Anesthesia: General and Local Anesthesiologist: Kathryn Last
[2021-03-25] MEDS: Bupivacaine Mpf 0.5% 30 ML VIAL (16:30)
--- NOTE | 2021-03-25 18:42 | NURSING ---
pt c/o feeling shaky and weak, pt stated her blood sugar runs low, checked glucometer and blood sugar 105. encouraged i.s.
[2021-03-25 18:45] LABS: Bedside Glucose 105 mg/dL (70-110)
[2021-03-25] MEDS: Acetaminophen 650 MG Suppository RC (21:37)
--- NOTE | 2021-03-25 22:28 | NURSING ---
PT assisted out of bed and to bathroom, pt voided. PT ambulated in hallway. Pt assisted back to bed. PT denies further needs at this time.
[2021-03-26 01:45] VITALS: BP 107/55; PULSE 75; RESP 16; TEMP 36.9; O2SAT 95
[2021-03-26] MEDS: Acetaminophen 650 MG Suppository RC ×5 (01:47→22:54)
[2021-03-26 05:10] LABS: Absolute Lymphocyte Count 1.31 X10^3/uL (0.83-4.51); Absolute Neutrophil Count 7.6 X10^3/uL (2.0-7.7); Basophil# 0.04 X10^3/uL; Basophil% 0.4 % (0-1); Eosinophil# 0.03 X10^3/uL; Eosinophils% 0.3 % (0-5); Hematocrit 33.8 % (37-47); Hemoglobin 10.8 g/dL (12.0-15.0); Lymphocyte # 1.31 X10^3/ul (0.83-4.51); Lymphocyte % 12.6 % (19-41); Mean Corpuscular Hgb 31.7 pg (27.0-32.0); Mean Corpuscular Volume 99.1 fL (81-99); Mean Platelet Vol. 10.8 fl (6.2-12.0); Monocyte# 1.37 X10^3/uL; Monocyte% 13.1 % (0-10); NRBC Flagged by Analyzer 0 % (0-5); Neutrophil # 7.63 X10^3/uL (2.7-7.7); Neutrophil % 73.1 % (47-70); Platelet Count 256 K/mm3 (150-450); RBC Distribution Width CV 14.1 % (11.6-14.6); RBC Distribution Width SD 51.6 fl (35.1-43.9); Red Blood Count 3.41 M/mm3 (4.2-5.4); White Blood Count 10.4 K/mm3 (4.4-11.0)
[2021-03-26 05:29] LABS: Anion Gap 10 (5-15); BUN 16 mg/dL (7-18); BUN/Creat Ratio 28.9 RATIO (10-20); Calcium,Total 7.5 mg/dL (8.5-10.1); Chloride 109 mmol/L (98-107); Creatinine, Serum 0.55 mg/dL (0.55-1.02); EST Glomerular Filtration Rate 115 mL/min (>60); Est Glom Filt Rate - Afr Amer 139 mL/min (>60); Estimated Creatinine Clearance 38.37 ml/min; Glucose 75 mg/dL (74-106); Potassium 3.3 mmol/L (3.5-5.1); Sodium Level 140 mmol/L (136-145)
[2021-03-26 05:43] VITALS: BP 108/54; PULSE 67; RESP 16; TEMP 37.5; O2SAT 94
--- NOTE | 2021-03-26 05:59 | PCM.DC ---
Discharge Instructions Diet Discharge Diet: Light diet - advance as tolerated (if you have questions about your diet instructions, please talk to you doctor.) Activity Discharge Activity: May Not Drive (for 3-5 days or while taking narcotic pain medicine.) May shower in (days): 1 Lifting Restrictions: 10 pounds Dressing / Incision Call your doctor if your incision/area has: Continuous Slow Oozing, Sudden Increased Bleeding, Increased Pain/ Swelling, Increased Redness and Foul Smelling Discharge Call your doctor if you observe: Fever of 101 or Higher Suture Line Care: Avoid Pulling/Pushing and Avoid Pinching/Bending Additional Dressing/Incision Instructions:: Change or remove dressing in 4 days. Leave steri-strips in place for 1 week. Follow Up Care Please Follow Up With: Terry Tavarez MD When: Call [phone] to make an appointment to be seen in about 10 days. Test Results: Test results from this visit will be discussed in further detail at your follow-up appointment, if applicable. Discharge Plan Admission Admit Date/Time: 03/24/21 21:01 Primary Reason for Your Visit: Acute small bowel obstruction Attending Provider: Leti Yee Primary Care Provider: Maritza De Luna Consulting Providers: Alexis Lewis Discharge Orders/Prescriptions Prescriptions: Continued multivitamin tablet 0.5 tab PO BID RF: 0 calcium carb-magnesium oxide-vit C 400 mg calcium-117 mg-167 mg tablet 400 mg calcium -117 mg-167 mg tablet PO RF: 0 hsqjdergmkf-hzm-bxuxlilxu-hrb 149-hyalur 500 mg-500 mg-66.7 mg tablet 500-500-66.7 mg tablet PO RF: 0 Lactobacillus acidophilus [Acidophilus] capsule 100 mg PO BID RF: 0 bilberry 100 mg capsule 100 mg PO DAILY RF: 0 amlodipine 5 mg tablet 2.5 tab PO BID RF: 0 docosahexaenoic acid-epa Capsule 1 cap PO BID RF: 0 cholecalciferol (vitamin D3) 25 mcg (1,000 unit) Tablet 25 mcg PO MOWEFRSA RF: 0 teriparatide [Forteo] 20 mcg/dose (620mcg/2.48mL) Pen Injector 20 mcg SUBCUT DAILY RF: 0 Referrals / Follow Up: Maritza De Luna MD [Primary Care Provider] - Disposition Disposition (needs filled in before D/C Order can be placed): Home, self care
--- NOTE | 2021-03-26 06:00 | PN.SURG_ITS ---
Subjective Subjective Patient is complaining of right earache. She believes that the NG tube is causing the irritation. She notes pain in the abdomen mid abdomen and right lower quadrant. No flatus. She has been able to ambulate once Objective Data Objective Data Vital Signs: Vital Signs Temp Pulse Resp BP Pulse Ox 99.5 F H 67 16 108/54 L 94 03/26/21 05:43 03/26/21 05:43 03/26/21 05:43 03/26/21 05:43 03/26/21 05:43 Oxygen Delivery Method Room Air Weight: 116 lb 9.992 oz Body Mass Index (BMI) 22.0 Intake & Output: Intake and Output for Last 24 Hours 03/24/21 03/25/21 03/26/21 23:59 23:59 23:59 Intake Total 100 / 100 3338.75 / 3338.75 90 / 90 Output Total 880 / 880 150 / 150 Balance 100 / 70 2458.75 / 2458.75 -60 / -60 Lab / Micro Data Result Diagrams: 03/26/21 04:55 03/26/21 04:55 Labs: Laboratory Results - last 24 hr 03/25/21 03/26/21 03/26/21 18:37 04:55 04:55 WBC 10.4 RBC 3.41 L Hgb 10.8 L Hct 33.8 L MCV 99.1 H MCH 31.7 MCHC 32.0 RDW Std Deviation 51.6 H RDW Coeff of Fuad 14.1 Plt Count 256 MPV 10.8 Immature Gran % (Auto) 0.500 Neut % (Auto) 73.1 H Lymph % (Auto) 12.6 L [place] % (Auto) 13.1 H Eos % (Auto) 0.3 Baso % (Auto) 0.4 Absolute Neuts (auto) 7.6 Absolute Lymphs (auto) 1.31 Nucleated RBC % 0 Sodium 140 Potassium 3.3 L Chloride 109 H Carbon Dioxide 21.0 Anion Gap 10 BUN 16 Creatinine 0.55 Estim Creat Clear Calc 38.37 Est GFR (MDRD) Af Amer 139 Est GFR (MDRD) Non-Af 115 BUN/Creatinine Ratio 28.9 H Glucose 75 Calcium 7.5 L POC Glucose 105 Micro: Microbiology 03/25/21 08:55 Mucosa - Nasopharyngeal SARS-CoV-2 Antigen (Rapid) - Final Radiography Diagnostic Testing: Radiology Impression KUB X-Ray 03/25/21 05:00 IMPRESSION: Findings are suspicious for persistent small bowel obstruction . Electronically Signed: Kita Castro MD at 6:01 EDT Tel , Service support , Abdomen X-Ray 03/25/21 11:35 IMPRESSION: 1. Nasogastric tube with the tip in the right upper quadrant likely in the antrum the stomach or the duodenal bulb. 2. No change in mild small bowel obstruction or focal ileus in the left upper quadrant. 3. No pneumoperitoneum. Electronically Signed: Ramos Abdi MD at 12:04 EDT Tel , Service support , Physical Exam GI GI Narrative: Dressing is clean and dry Inspection: abdominal distention Auscultation: hypoactive bowel sounds Palpation: tender Assessment & Plan Assessment/Plan (1) Small bowel obstruction: (2) Hypokalemia: PLAN: Hypokalemia likely due to hemodilution and NG tube removal. Will replace. We will remove NG tube. Patient encouraged to mobilize. Will reassess patient midday to see if liquid diet can be initiated. She has diffusely distended bowel loops and certainly has a degree of preoperative ileus. K pad encouraged as well. CBC noted. Improve white count and hemodilution noted. No surgical evidence for blood loss. Terry Tavarez M.D., F.A.C.S.
[2021-03-26] MEDS: Potassium Chloride 10mEq/100mL 10 MEQ/100 ML IV.SOLN. 100 MEQ IV BOLUS (06:36)
[2021-03-26] MEDS: Lactated Ringers 1,000 ML 70 ML IV (08:09)
--- NOTE | 2021-03-26 08:14 | NURSING ---
IV fluids increased d/t the discomfort of the k-rider infusing. will decrease IVF back to 70 after k-riders are finished
[2021-03-26] MEDS: Potassium Chloride 10mEq/100mL 10 MEQ/100 ML IV.SOLN. 70 MEQ IV BOLUS (08:16)
[2021-03-26] MEDS: Enoxaparin 30 MG/0.3 ML Syringe SC (10:47)
[2021-03-26] MEDS: Potassium Chloride 10mEq/100mL 10 MEQ/100 ML IV.SOLN. 50 MEQ IV BOLUS (10:50)
--- NOTE | 2021-03-26 11:24 | PCM.PN.HOSP ---
Documented by User: Otis MAGALLANES 03/26/21 11:43 Subjective Subjective Patient is a 70-year-old female resting in a chair, alert and orient x3. Patient reports feeling subjectively worse from yesterday as her abdominal pain has increased and she has a mild right earache. NG tube has been removed. Denies chest pain, shortness of breath, palpitations, fever, chills, N/V/D Objective Data Objective Data Vital Signs: Vital Signs Temp Pulse Resp BP Pulse Ox 99.5 F H 67 16 108/54 L 94 03/26/21 05:43 03/26/21 05:43 03/26/21 05:43 03/26/21 05:43 03/26/21 05:43 Oxygen Delivery Method Room Air Weight: 116 lb 9.992 oz Body Mass Index (BMI) 22.0 Intake & Output: Intake and Output for Last 24 Hours 03/24/21 03/25/21 03/26/21 23:59 23:59 23:59 Intake Total 100 / 100 3338.75 / 3338.75 1318.67 / 1318.67 Output Total 880 / 880 150 / 150 Balance 100 / 70 2458.75 / 2458.75 1168.67 / 1168.67 Lab / Micro Data Result Diagrams: 03/26/21 04:55 03/26/21 04:55 Labs: Laboratory Results - last 24 hr 03/25/21 03/26/21 03/26/21 18:37 04:55 04:55 WBC 10.4 RBC 3.41 L Hgb 10.8 L Hct 33.8 L MCV 99.1 H MCH 31.7 MCHC 32.0 RDW Std Deviation 51.6 H RDW Coeff of Fuad 14.1 Plt Count 256 MPV 10.8 Immature Gran % (Auto) 0.500 Neut % (Auto) 73.1 H Lymph % (Auto) 12.6 L [place] % (Auto) 13.1 H Eos % (Auto) 0.3 Baso % (Auto) 0.4 Absolute Neuts (auto) 7.6 Absolute Lymphs (auto) 1.31 Nucleated RBC % 0 Sodium 140 Potassium 3.3 L Chloride 109 H Carbon Dioxide 21.0 Anion Gap 10 BUN 16 Creatinine 0.55 Estim Creat Clear Calc 38.37 Est GFR (MDRD) Af Amer 139 Est GFR (MDRD) Non-Af 115 BUN/Creatinine Ratio 28.9 H Glucose 75 Calcium 7.5 L POC Glucose 105 Micro: Microbiology 03/25/21 08:55 Mucosa - Nasopharyngeal SARS-CoV-2 Antigen (Rapid) - Final Radiography Diagnostic Testing: Radiology Impression Abdomen X-Ray 03/25/21 11:35 IMPRESSION: 1. Nasogastric tube with the tip in the right upper quadrant likely in the antrum the stomach or the duodenal bulb. 2. No change in mild small bowel obstruction or focal ileus in the left upper quadrant. 3. No pneumoperitoneum. Electronically Signed: Ramos Abdi MD at 12:04 EDT Tel , Service support , Physical Exam Narrative See subjective. Const alert, oriented x3 and no apparent distress HEENT head/scalp atraumatic, moist oral mucous membranes, oropharynx normal and dentition normal Head and Scalp: normocephalic Eyes PERRL, EOMs intact bilaterally and conjunctivae normal Neck no lymphadenopathy, supple and no JVD Resp normal respiratory effort, no retractions, no use of accessory muscles and clear to auscultation bilaterally Cardio regular rate, regular rhythm, no murmurs and no JVD GI normal to inspection, nondistended, normoactive bowel sounds, soft to palpation and non-tender Extremity normal to inspection, full ROM and no clubbing, cyanosis or edema Skin no rashes or lesions noted, no wounds and no jaundice Neuro CN's II-XII intact bilaterally Psych affect normal Assessment & Plan Assessment/Plan (1) Hypokalemia: (2) HTN (hypertension): (3) Small bowel obstruction: PLAN: See subjective for patient presentation. This provider is seeing this patient on consult from the general surgery team status post NG tube removal for SBO. 1) SBO NG tube removed and diet has been advanced, per General Surgery. Continue to monitor. 2) HTN Stable. Hypertensive regimen currently on hold. Continue to monitor, hydralazine IV as needed. 3) Hypokalemia Currently 3.30, secondary to hemodilution and NG tube removal. Plan; LR infusion, continue to monitor BMP. DVT prophylaxis - not indicated Patient seen by Otis Baeza PA-C, under the supervision of Dr. Yee. Documented by User: Dr. Leti Yee MD 03/26/21 15:51 Objective Data Lab / Micro Data Result Diagrams: 03/26/21 04:55 03/26/21 04:55 Charges/Coding Addendum Addendum: This patient was seen in conjunction with ELPIDIO Capps. I have independently interviewed and examined the patient and reviewed pertinent historical, laboratory, and other data. Please refer to ELPIDIO Capps's note for his patient's presentation, findings, and recommendations. I have reviewed and his note and concur with his documentation Patient was seen and examined. She complains of right-sided abdominal pain. NG tube has been removed. Denies fever, chills, SOB. Physical Exam: Gen: In mild discomfort, not pale, not jaundiced, well hydrated CVS:HS I +II, regular, no murmurs RESP: Diminished at lung bases GI: BS present and normal, soft, nontender, no palpable organs EXT:No edema ASSESSMENT: 1. Postop day #1 status post exploratory laparoscopy with conversion to mini laparotomy and 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 and release of small bowel obstruction. Incidental appendectomy. 2. Hypokalemia 3. Hypertension Plan: Continue on IVF, n.p.o. status, encourage ambulation, follow-up on surgical recommendations. Check magnesium level Continue to monitor blood pressure Repeat blood work in a.m. Visit Charges Inpatient E&M: 51421 Subs Hosp L2
[2021-03-26 13:30] VITALS: BP 107/54; PULSE 78; RESP 18; TEMP 37.7; O2SAT 96
[2021-03-26] MEDS: Ketorolac 15 MG/ML Vial IV (13:36)
[2021-03-26 15:05] VITALS: O2SAT 95
[2021-03-26 16:25] VITALS: TEMP 36.8
[2021-03-26 20:16] VITALS: BP 106/56; PULSE 65; RESP 18; TEMP 37.1; O2SAT 98
[2021-03-27 02:35] VITALS: BP 109/56; PULSE 62; RESP 18; TEMP 36.6; O2SAT 96
--- NOTE | 2021-03-27 06:41 | PCM.PN.SRG ---
Subjective Subjective Patient has had several loose stools. Incontinence while walking. Objective Data Objective Data Vital Signs: Vital Signs Temp Pulse Resp BP Pulse Ox 98 F 62 18 109/56 L 96 03/27/21 02:35 03/27/21 02:35 03/27/21 02:35 03/27/21 02:35 03/27/21 02:35 Oxygen Delivery Method Room Air Weight: 116 lb 9.992 oz Body Mass Index (BMI) 22.0 Intake & Output: Intake and Output for Last 24 Hours 03/25/21 03/26/21 03/27/21 23:59 23:59 23:59 Intake Total 3338.75 / 3338.75 2732.84 / 2732.84 300 / 300 Output Total 880 / 880 625 / 625 200 / 200 Balance 2458.75 / 2458.75 2107.84 / 2107.84 100 / 100 Lab / Micro Data Result Diagrams: 03/26/21 04:55 03/26/21 04:55 Labs: Laboratory Results - last 24 hr 03/26/21 04:55 Magnesium 2.0 Micro: Microbiology 03/25/21 08:55 Mucosa - Nasopharyngeal SARS-CoV-2 Antigen (Rapid) - Final Physical Exam GI GI Narrative: Softly distended, mild discomfort right lower quadrant, dressings clean and dry, hypoactive bowel sounds Assessment & Plan Assessment/Plan (1) Small bowel obstruction: PLAN: Several loose stools. This may simply be secondary to the stagnation of succus entericus within her small bowel. Patient however did have an in a seated diarrheal illness prior to her presentation to the hospital. Will check C. difficile. CBC with differential and potassium level still pending. Anticipate discharge later today. Teryr Tavarez M.D., F.A.C.S.
--- NOTE | 2021-03-27 06:46 | PCM.DC.SUM ---
Providers Date of Admission: 03/24/21 Primary Care Physician: Dr. Maritza De Luna MD Consultations 03/24/21 21:30 Consult: Hospitalist Routine Consulting Provider: Alexis Lewis Reason for Consult: medical management EMERGENT Consult: No MD Notified: Yes Date Notified: 03/24/21 Time Notified: 21:08 Method of Notification: Verbal Reason For Visit: SBO, DEHYDRATION Diagnosis Discharge Diagnosis (1) Small bowel obstruction: Status: Acute Code(s): K56.609 - Unspecified intestinal obstruction, unspecified as to partial versus complete obstruction Plan: 70-year-old female. She was transferred from [facility] with nausea vomiting abdominal distention and findings consistent with a small bowel obstruction. She was treated for dehydration. NG tube was placed. She failed to resolve with conservative measures. 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 There was a secondary plan also that was restricting the terminal ileum. The band felt to be consistent with a Meckel's was resected. The band at the ileocecal valve area was lysed. Postoperative course was noted for some diarrhea. Her anesthetic course prior to hospitalization was noted for diarrhea for which she took Imodium. C. difficile was checked. The patient was mildly hypokalemic during her stay and this was replaced with IV potassium. Because of multiple allergies pain was controlled simply with acetaminophen and NSAID. Surgical follow-up scheduled for 10 days. Pathology pending. C. Diff negative Medications at Discharge Home Medications Lactobacillus acidophilus 100 mg PO BID 09/26/17 calcium carb-magnesium oxide-vit C 400 mg calcium-117 mg-167 mg tablet tab PO 09/26/17 gxbdyckgktr-oiz-hljceqoda-hrb 149-hyalur 500 mg-500 mg-66.7 mg tablet tab PO 09/26/17 multivitamin 0.5 tab PO BID 09/26/17 amlodipine 5 mg tablet 2.5 tab PO BID 08/19/20 bilberry 100 mg capsule 100 mg PO DAILY cap 08/19/20 cholecalciferol (vitamin D3) 25 mcg PO MOWEFRSA 03/24/21 docosahexaenoic acid-epa 1 cap PO BID 03/24/21 teriparatide [Forteo] 20 mcg SUBCUT DAILY 03/24/21 Hospital Course Operations - (Exploratory laparoscopy with conversion to mini laparotomy and resection of suspected Meckel's diverticular band and release of small bowel obstruction at terminal ileum) Weight / BMI Weight Weight: 116 lb 9.992 oz Body Mass Index (BMI) 22.0 ABG / Lab / Microbiology Data Result Diagrams: 03/27/21 07:00 03/27/21 07:00 Laboratory: Laboratory Results - last 24 hr 03/26/21 04:55 Magnesium 2.0 Microbiology: Microbiology 03/25/21 08:55 Mucosa - Nasopharyngeal SARS-CoV-2 Antigen (Rapid) - Final D/C Instructions Discharge Diet: Light diet - advance as tolerated (if you have questions about your diet instructions, please talk to you doctor.) May shower in (days): 1 Call your doctor if your incision/area has: Continuous Slow Oozing, Sudden Increased Bleeding, Increased Pain/ Swelling, Increased Redness and Foul Smelling Discharge Call your doctor if you observe: Fever of 101 or Higher Suture Line Care: Avoid Pulling/Pushing and Avoid Pinching/Bending Additional Dressing/Incision Instructions: Change or remove dressing in 4 days. Leave steri-strips in place for 1 week. Please Follow Up With: Terry Tavarez MD When: Call [phone] to make an appointment to be seen in about 10 days. Meaningful Use Info Meaningful Use Diagnoses (Choose all that apply): None applicable Discharge Plan Admission Admit Date/Time: 03/24/21 21:01 Primary Reason for Your Visit: Acute small bowel obstruction Attending Provider: Leti Yee Primary Care Provider: Maritza De Luna Consulting Providers: Alexis Lewis Discharge Orders/Prescriptions Prescriptions: Continued multivitamin tablet 0.5 tab PO BID RF: 0 calcium carb-magnesium oxide-vit C 400 mg calcium-117 mg-167 mg tablet 400 mg calcium -117 mg-167 mg tablet PO RF: 0 lijifryzkvg-ncj-hesrhhotf-hrb 149-hyalur 500 mg-500 mg-66.7 mg tablet 500-500-66.7 mg tablet PO RF: 0 Lactobacillus acidophilus [Acidophilus] capsule 100 mg PO BID RF: 0 bilberry 100 mg capsule 100 mg PO DAILY RF: 0 amlodipine 5 mg tablet 2.5 tab PO BID RF: 0 docosahexaenoic acid-epa Capsule 1 cap PO BID RF: 0 cholecalciferol (vitamin D3) 25 mcg (1,000 unit) Tablet 25 mcg PO MOWEFRSA RF: 0 teriparatide [Forteo] 20 mcg/dose (620mcg/2.48mL) Pen Injector 20 mcg SUBCUT DAILY RF: 0 Referrals / Follow Up: Maritza De Luna MD [Primary Care Provider] - Disposition Disposition (needs filled in before D/C Order can be placed): Home, self care
[2021-03-27] MEDS: Acetaminophen 325 MG Tablet 650 MG PO ×2 (06:47→17:34)
[2021-03-27 07:26] LABS: Absolute Lymphocyte Count 1.03 X10^3/uL (0.83-4.51); Absolute Neutrophil Count 4.5 X10^3/uL (2.0-7.7); Basophil# 0.03 X10^3/uL; Basophil% 0.5 % (0-1); Eosinophil# 0.15 X10^3/uL; Eosinophils% 2.3 % (0-5); Hematocrit 33.8 % (37-47); Lymphocyte # 1.03 X10^3/ul (0.83-4.51); Lymphocyte % 15.6 % (19-41); Mean Corp Hgb Conc 32.5 g/dL (32-36); Mean Corpuscular Hgb 32.3 pg (27.0-32.0); Mean Corpuscular Volume 99.1 fL (81-99); Mean Platelet Vol. 10.8 fl (6.2-12.0); Monocyte% 13.6 % (0-10); NRBC Flagged by Analyzer 0 % (0-5); Neutrophil # 4.47 X10^3/uL (2.7-7.7); Neutrophil % 67.7 % (47-70); Platelet Count 256 K/mm3 (150-450); RBC Distribution Width SD 51.5 fl (35.1-43.9); Red Blood Count 3.41 M/mm3 (4.2-5.4); White Blood Count 6.6 K/mm3 (4.4-11.0)
[2021-03-27 07:35] LABS: Potassium 3.3 mmol/L (3.5-5.1)
[2021-03-27 08:30] VITALS: BP 127/73; PULSE 72; RESP 18; TEMP 36.6; O2SAT 100
[2021-03-27] MEDS: Enoxaparin 30 MG/0.3 ML Syringe SC (10:54)
[2021-03-27] MEDS: Famotidine 20 MG Tablet PO (10:54)
[2021-03-27] MEDS: Potassium Chloride Oral Tablet 20 MEQ PO ×2 (10:55→17:33)
[2021-03-27 12:43] VITALS: BP 138/82; PULSE 76; RESP 18; TEMP 37.3; O2SAT 99
[2021-03-27] MEDS: Ibuprofen 400 MG Tablet PO (13:07)
--- NOTE | 2021-03-27 13:07 | PN.HOSP_ITS ---
Documented by User: Otis MAGALLANES 03/27/21 13:14 Subjective Subjective Patient is a 70-year-old female comfortably resting in the chair, alert orient x3. Patient reports improvement from yesterday although her stomach is still mildly tender. Denies chest pain, shortness of breath, palpitations, hemoptys is, sputum production, fevers, chills, N/V/D. Objective Data Objective Data Vital Signs: Vital Signs Temp Pulse Resp BP Pulse Ox 97.8 F 72 18 127/73 H 100 03/27/21 08:30 03/27/21 08:30 03/27/21 08:30 03/27/21 08:30 03/27/21 08:30 Oxygen Delivery Method Room Air Weight: 116 lb 9.992 oz Body Mass Index (BMI) 22.0 Intake & Output: Intake and Output for Last 24 Hours 03/25/21 03/26/21 03/27/21 23:59 23:59 23:59 Intake Total 3338.75 / 3338.75 2732.84 / 2732.84 700 / 700 Output Total 880 / 880 625 / 625 400 / 400 Balance 2458.75 / 2458.75 2107.84 / 2107.84 300 / 300 Lab / Micro Data Result Diagrams: 03/27/21 07:00 03/27/21 07:00 Labs: Laboratory Results - last 24 hr 03/26/21 03/27/21 03/27/21 04:55 07:00 07:00 WBC 6.6 RBC 3.41 L Hgb 11.0 L Hct 33.8 L MCV 99.1 H MCH 32.3 H MCHC 32.5 RDW Std Deviation 51.5 H RDW Coeff of Fuad 14.0 Plt Count 256 MPV 10.8 Immature Gran % (Auto) 0.300 Neut % (Auto) 67.7 Lymph % (Auto) 15.6 L [place] % (Auto) 13.6 H Eos % (Auto) 2.3 Baso % (Auto) 0.5 Absolute Neuts (auto) 4.5 Absolute Lymphs (auto) 1.03 Nucleated RBC % 0 Potassium 3.3 L Magnesium 2.0 Micro: Microbiology 03/27/21 09:50 Stool C. difficile DNA Amplification - Final 03/25/21 08:55 Mucosa - Nasopharyngeal SARS-CoV-2 Antigen (Rapid) - Final Physical Exam Const alert, oriented x3 and no apparent distress HEENT head/scalp atraumatic and moist oral mucous membranes Head and Scalp: normocephalic Eyes PERRL, EOMs intact bilaterally and conjunctivae normal Neck no lymphadenopathy, supple and no JVD Resp normal respiratory effort, no retractions, no use of accessory muscles and clear to auscultation bilaterally Cardio regular rate, regular rhythm, no murmurs and no JVD GI normal to inspection, nondistended, normoactive bowel sounds, soft to palpation, non-tender and non-distended Extremity normal to inspection, full ROM and no clubbing, cyanosis or edema Skin no rashes or lesions noted, no wounds and skin turgor normal Neuro CN's II-XII intact bilaterally Psych affect normal Assessment & Plan Assessment/Plan (1) Hypokalemia: (2) HTN (hypertension): (3) Small bowel obstruction: (4) Dehydration: PLAN: 1) SBO NG tube removed and diet has been advanced to regular. C. difficile panel negative. Pathology pending. Plan; follow-up with general surgery in 10 days. 2) HTN Stable. 3) Hypokalemia Currently 3.3. General surgery feels this is secondary to NG tube, still okay with discharge. Patient seen by Otis Baeza PA-C, under the supervision of Dr. Yee. Documented by User: Dr. Leti Yee MD 03/28/21 07:34 Objective Data Lab / Micro Data Result Diagrams: 03/27/21 07:00 03/27/21 07:00 Charges/Coding Addendum Addendum: This patient was seen in conjunction with ELPIDIO Capps. I have independently interviewed and examined the patient and reviewed pertinent historical, laboratory, and other data. Please refer to ELPIDIO Capps's note for his patient's presentation, findings, and recommendations. I have reviewed and his note and concur with his documentation Patient was seen and examined. She has multiple bowel movements. Stool for C. difficile is negative. Denies fever, chills, SOB. Physical Exam: Gen: Comfortable, not pale, not jaundiced, well hydrated CVS:HS I +II, regular, no murmurs RESP: Diminished at lung bases GI: BS present and normal, laparotomy scars present, soft, nontender, no palpable organs EXT:No edema ASSESSMENT: 1. Postop day #2 status post exploratory laparoscopy with conversion to mini laparotomy and 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 and release of small bowel obstruction. Incidental appendectomy. 2. Hypokalemia 3. Hypertension Plan: Continue current diet according to general surgery, encourage ambulation, Follow-up on C. difficile Visit Charges Inpatient E&M: 18055 Subs Hosp L2
[2021-03-27 18:00] VITALS: BP 118/63; PULSE 74; RESP 18; TEMP 36.7; O2SAT 94
--- NOTE | 2021-03-27 19:41 | NURSING ---
This RN entered room, pt sitting in chair with Kpad across ABD, also in room. When asked if pt was ready to be discharged, pt stated We're going to finish watching this movie first.
[2021-03-27 20:21] VITALS: BP 135/64; PULSE 78; RESP 16; TEMP 36.4; O2SAT 99
== END 2021-03-27 20:00 | disposition home or self-care (01) | DRG 330 ==
LOC: ED 20:47 → MS3 21:48
PROVIDERS: Physician Assistant; Admitting Provider Surgery; Emergency Provider Surgery; PCP Internal Medicine; Visit Provider Internal Medicine
PROC: 0DBB0ZZ Excision of Ileum, Open Approach (ICD-10-PCS; CPT 44202; principal; 2021-03-25 12:40)
DX: K56.50 Intestinal adhesions [bands], unspecified as to partial versus complete obstruction (principal); K46.0 Unspecified abdominal hernia with obstruction, without gangrene; Q43.0 Meckel's diverticulum (displaced) (hypertrophic); E86.0 Dehydration; E87.6 Hypokalemia; Z20.822 Contact with and (suspected) exposure to COVID-19; I10 Essential (primary) hypertension; M85.80 Other specified disorders of bone density and structure, unspecified site; Z79.899 Other long term (current) drug therapy
CPT/HCPCS: 36415; 74018; 74019; 80048; 80053; 82150; 82962; 83605; 83690; 83735; 84132; 85025; 87426; 87493; 88304; 88305; 93005; 99285; J7030; J7120; A4216; J3490

== ENCOUNTER → 2021-03-24 | Outpatient (CLI) | payer MEDICARE, SELFPAY ==
[2020-08-19 11:45] VITALS: BMI 20.4
[2021-03-24 12:41] LABS: Absolute Lymphocyte Count 0.88 X10^3/uL (0.83-4.51); Absolute Neutrophil Count 11.5 X10^3/uL (2.0-7.7); Basophil# 0.03 X10^3/uL; Basophil% 0.2 % (0-1); Eosinophil# 0.01 X10^3/uL; Eosinophils% 0.1 % (0-5); Hematocrit 41.6 % (37-47); Hemoglobin 13.5 g/dL (12.0-15.0); Lymphocyte # 0.88 X10^3/ul (0.83-4.51); Lymphocyte % 6.5 % (19-41); Mean Corp Hgb Conc 32.5 g/dL (32-36); Mean Corpuscular Volume 98.6 fL (81-99); Monocyte% 8.1 % (0-10); NRBC Flagged by Analyzer 0 % (0-5); Neutrophil # 11.51 X10^3/uL (2.7-7.7); Neutrophil % 84.6 % (47-70); Platelet Count 326 K/mm3 (150-450); RBC Distribution Width CV 14.1 % (11.6-14.6); RBC Distribution Width SD 51.3 fl (35.1-43.9); Red Blood Count 4.22 M/mm3 (4.2-5.4); White Blood Count 13.6 K/mm3 (4.4-11.0)
[2021-03-24 13:00] LABS: ALB/GLOB Ratio 1.2 RATIO (0.9-2.4); AST(SGOT) 22 U/L (15-37); Alanine Aminotransfer ALT/SGPT 26 U/L (13-56); Albumin, Serum 4.2 g/dL (3.2-5.0); Alkaline Phosphatase 104 U/L (45-117); Amylase 70 U/L (25-115); Anion Gap 7 (5-15); BUN 18 mg/dL (7-18); BUN/Creat Ratio 21.9 RATIO (10-20); Chloride 104 mmol/L (98-107); Creatinine, Serum 0.82 mg/dL (0.55-1.02); EST Glomerular Filtration Rate 73 mL/min (>60); Est Glom Filt Rate - Afr Amer 88 mL/min (>60); Globulin 3.5 g/dL (2.2-4.2); Glucose 99 mg/dL (74-106); Lipase 72 U/L (73-393); Potassium 5.2 mmol/L (3.5-5.1); Protein, Total 7.7 g/dL (6.4-8.2); Sodium Level 137 mmol/L (136-145)
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
== END | disposition home or self-care (01) ==
LOC: LABSPEC 12:25
PROVIDERS: PCP Internal Medicine; Visit Provider Internal Medicine
DX: R10.9 Unspecified abdominal pain (principal)
CPT/HCPCS: 80053; 82150; 83690; 85025; J3490

== ENCOUNTER 2021-04-12 09:30 | Outpatient (RCR) | payer MEDICARE, SELFPAY ==
[2020-08-19 11:45] VITALS: BMI 20.4
--- NOTE | 2021-02-10 14:29 | HP.PTEVAL ---
Patient's Visit Information KATHRIN BRAVO is a 70 year old F referred to Physical Therapy by Dr. Maritza De Luna MD with a diagnosis of L shoulder pain. Date of Evaluation: 02/09/21 Physical Therapist: Marshall Meredith DPT - Visit Plan Frequency: 3x /Week Duration: 6 Weeks Plan: Pt. was evaluated today. Pt. has marked weakness in her L shoulder as well as a marked chronic L clavicle fracture ~ 6 years old. She is to have an ORIF next week. She will be on hold with PT until given the go ahead after her L clavicle surgery. - Subjective Pt. is here today for her initial evaluation with diagnsois of L shoulder pain. She is known to the PT from prevuious PT sessions. Pt. has a L clavicle fx which is going to have another ORIF next week to fix. She had a L clavicle fx ~8 years ago. She had a reaction to the metal, and was removed. The next day she re fractured her clavicle. She has increased pain with shoulder elevation, lifting, walkign with increased L arm swing. Pt. has been working out, but has been having increased pain at scpaualr region and down her lateral L deltiod region. Pt. denies N/T. Pt. had been strengthening with decent results, but has not removed her pain. Pt. is hopeful to regain her strength and decrease symptoms. - Pain L shoulder Pain Intensity (Out of 10): 3 Pain Intensity Range: 0, 6 - Objective POSTURE: Pt. has decent posture in stance and sitting. Pt. has good head postioning without FS posture. PALPATION: Pt. has obvious shelf deformity at L mid shaft of clavicle. Pt. has tenderness at lateral delptid region, but has some sore of cyst, possible lipoma. Pt. has marked scapular winging on the L side, worsens with shoulder flexion. NEURO: Pt. has normal sensation in BUEs, normal DTR of biceps and triceps. ROM: Pt. has normal ROM of bilateral UEs. including shoulders and elbows. Pt. does have some scapular dyskinesia. MMT: pt. has general 4+/5 strength throughout. 4-/5 L serratus anterior. Pt.has 4/5 L shoulder ER. - Special Tests L Shoulder Drop Sign - IS Test: Negative L Shoulder Empty Can - SS: Negative L Shoulder Belly Press - SupScap: Negative L Shoulder Neer - Impingement: Negative L Shoulder Welch Nura - Impingement: Negative L Shoulder Biceps Load Test - Labrum: Negative - Goals Goal 1:: LTG: Pt. to be I with HEP. Goal Time Frame: 4-6 Weeks Goal 2:: LTG: Pt. to have her ROM re assess after ORIF for L clavicle fx. Goal Time Frame: 4-6 Weeks Goal 3:: STG: pt. to sleep throughout the night with 0-2/10 pain in L shoulder. Goal Time Frame: 2-4 Weeks Goal 4:: LTG: pt. resume all recreational activities including walking, biking and hiking without increase in L shoulder pain. Goal Time Frame: 4-6 Weeks Goal 5:: LTG: Pt. to resume to all recreational gym activities without increase in symptoms. Goal Time Frame: 4-6 Weeks - Rehabilitation Potential Physical Therapy Diagnosis: Pt. has signs and symptoms consistent with L shoulder pain that does radiate into her L scapular region and deltoid region. Pt. has a marked L clavicle fracture which is chronic, but is getting an ORIF next week. Pt. has decent ROM and decent strength overall. Pt. would benefit from PT to address her strength and to be seen after her ORIF as long as she is cleared by her physician. Rehabilitation Potential: Excellent - Anticipated Interventions Patient/Client Instruction: Educate patient on: Condition, Plan of Care, Risk Factors, Benefits of Fitness Program For the Purpose of:: To facilitate caregiver knowledge, To improve self management, To prevent re-injury, To improve ability to perform tasks related to life management, To improve tolerance to ADL's Therapeutic Exercise to Include: Strength training, Power training, Endurance training, Postural training, Flexibilty training, Passive ROM, Active ROM, Scapular Strength/Stabilization For the Purpose of:: To decrease pain, To decrease swelling/inflammation, To increase ROM, To improve nutrient delivery to tissue, To improve health of tissue, To decrease soft tissue restriction Manual Therapy Techniques to Include: Mobilization, Passive ROM For the Purpose of:: To decrease pain, To decrease swelling/inflammation, To increase ROM, To improve nutrient delivery to tissue, To increase oxygenation perfusion Ultrasound (thermal/non thermal): Yes Thank you for the opportunity to evaluate your patient. For Medicare and Medicare HMO plans, please review the plan of care and approve it. It will need to be FAXED BACK to us at [phone] for Medicare purposes. For Medicare only, by signing this I certify the plan of care. Please let me know if there are questions or concerns regarding this plan of care. Physician Signature: Date:
== END 2021-04-12 19:00 | disposition home or self-care (01) ==
LOC: PT 09:30
PROVIDERS: PCP Internal Medicine; Referring Provider Internal Medicine; Visit Provider Internal Medicine
DX: M25.512 Pain in left shoulder (principal)
CPT/HCPCS: 97161

== ENCOUNTER → 2021-05-19 14:17 | Outpatient (CLI) | payer MEDICARE, SELFPAY ==
[2021-03-25 09:58] VITALS: BMI 22.0
[2021-05-19 14:36] LABS: Erythrocyte Sedimentation Rate 4 mm/hr (0-30)
== END ==
PROVIDERS: PCP Internal Medicine; Referring Provider Physician Assistant; Visit Provider Physician Assistant
DX: R10.9 Unspecified abdominal pain (principal)
CPT/HCPCS: 36415; 85652

== ENCOUNTER → 2021-07-19 09:03 | Outpatient (CLI) | payer MEDICARE, SELFPAY ==
--- NOTE | 2021-07-19 09:06 | BI_ITS ---
MAMMOGRAPHY - BILATERAL DIAGNOSTIC REASON FOR EXAM: Female, 70 years old. NODULE LEFT BREAST PERTINENT HISTORY: Non-contributory. TECHNIQUE: Digital examination. Mediolateral oblique (MLO) and craniocaudad (CC) views of both breasts were obtained. CAD: CAD was performed on this study. COMPARISON: 05/26/2020 FINDINGS: Breast Composition: There are scattered areas of fibroglandular density. There are no dominant masses or suspicious calcifications. No other significant abnormalities are identified. BI/DIAG MAMM W/CAD, BILAT IMPRESSION: Stable bilateral diagnostic mammogram. ASSESSMENT CATEGORY: BIRADS Category 1: Negative. A letter regarding these results will be sent to the patient by the facility within 30 days. FOLLOW UP RECOMMENDATION: Yearly follow up mammogram recommended. (A) Approximately 10% of breast cancers are not detected by mammography. A normal mammogram should not delay biopsy of a clinically suspicious abnormality. Electronically Signed: Ramos Abdi MD at 10:12 EDT Tel , Service support ,
== END ==
PROVIDERS: PCP Internal Medicine; Visit Provider Internal Medicine
DX: R92.8 Other abnormal and inconclusive findings on diagnostic imaging of breast (principal); N63.25 Unspecified lump in the left breast, overlapping quadrants
CPT/HCPCS: 77062; 77066; G0279

== ENCOUNTER 2021-10-12 09:02 | Outpatient (RCR) | payer MEDICARE, SELFPAY | END 2021-10-12 09:22 | disposition home or self-care (01) | LOC: PT 09:02 | PROVIDERS: PCP Internal Medicine; Referring Provider Otolaryngology; Visit Provider Otolaryngology | DX: R69 Illness, unspecified (principal) ==

== ENCOUNTER 2021-12-19 09:25 | Observation (INO) | payer MEDICARE, SELFPAY ==
[2021-12-19] VITALS (7 sets, daily range): BP systolic 132–156; BP diastolic 72–91; PULSE 75–85; RESP 16–18; TEMP 36.6–37.1; O2SAT 95–100; BMI 21.7; BMI 20.3
--- NOTE | 2021-12-19 09:42 | CT_ITS ---
STUDY: CT ABDOMEN AND PELVIS WITH CONTRAST REASON FOR EXAM: Female, 71 years old. Abdominal pain and bloating RADIATION DOSAGE (If Supplied By Facility): CTDIvol = ( 8.72 ) mGy, DLP = ( 306.37 ) mGycm TECHNIQUE: Transaxial images were obtained from the dome of the diaphragm to the symphysis pubis without oral contrast. IV 100mL Isovue-370 was administered. Sagittal and coronal images were reconstructed. Individualized dose optimization techniques were used for this CT. COMPARISON: July 11, 2012 CT abdomen and pelvis FINDINGS: The visualized focus of calcification within the right lower lobe compatible granulomatous disease stable since prior study. The visualized portions of the heart are within normal limits. The liver is fatty infiltrated. The left hepatic lobe appears elongated. There is a small benign-appearing cyst measuring 6.6 mm in the right hepatic lobe slightly enlarged when compared to prior study measured 4.2 mm. There is visualized mild intra and extrahepatic ductal dilatation. There is non-visualization of the gallbladder, which may be secondary to either contraction or a prior cholecystectomy. Normal spleen. Normal pancreas. Normal bilateral adrenal glands. Normal right kidney. Normal left kidney. Normal visualized stomach. Distention of the midline small bowel with an air-fluid level. There is mild edema of the mesentery in the right lower quadrant. Mesentery There is visualized moderate stool within the colon. There is a focus of linear density bordering the cecum there is a low-lying appearance of the cecum which is full of stool. The appendix is not seen with certainty. There is a small amount of fluid tracking along the right side paracolic gutter. Normal abdominal aorta. Normal inferior vena cava. Normal retroperitoneum. Normal urinary bladder. There is atrophy of the uterus. Normal abdominal wall. There is visualized anterolisthesis L4-L5. At L3-L4 there is severe disc space narrowing moderate neural foraminal narrowing moderate central stenosis facet arthropathy. At L4-L5 there is facet arthropathy anterolisthesis is moderate neural foraminal narrowing moderate central stenosis. At L5-S1 there is facet arthropathy. There is degenerative change of the SI joints. There is a distorted appearance of the bilateral inferior pubic ramus compatible with prior fracture injuries. CT/Abdomen/Pelvis W IV Cont ONLY IMPRESSION: There is a distended appearance of the proximal small bowel loops raising concern for ileus versus developing partial small bowel obstruction. There is a linear band of density within the right lower quadrant that may represent surgical sutures. Recommend correlation with surgical history. There is a small to moderate amount of fluid within the right greater than left pericolic gutter raising concern for possible inflammatory process in the right lower quadrant. Could consider a follow-up study such is upper GI small bowel follow-through .. Otherwise there is moderate to severe constipation. Electronically Signed: Kita Castro MD at 11:41 EST ,
--- NOTE | 2021-12-19 09:45 | EDS_ITS ---
HPI HPI - GI History of Present Illness Chief Complaint: Abd Pain Narrative Narrative: Patient presents with her because of abdominal pain and bloating that she has had since yesterday. It feels similar to when she had a bowel obstruction. She states that in the past she has had surgery for bowel obstruction by Dr. Terry Rivero. She is nauseated but has not vomited this time. She states that she is still passing a small amount of gas. She denies a ny diarrhea. No dysuria. No fevers or chills. No exacerbating or alleviating factors. She states that her abdominal bloating has gotten so bad that the pants that she was wearing she was unable to button yesterday by afternoon/evening. [facility] Medical History Abdominal pain Cholecystectomy planned Clavicle fracture History of stress test HTN (hypertension) IBS (irritable bowel syndrome) Meckel diverticulum Osteopenia Home Medications Lactobacillus acidophilus 100 mg PO BID 09/26/17 [History Last Taken 03/23/21] multivitamin 0.5 tab PO BID 09/26/17 [History Last Taken 03/23/21] amlodipine 5 mg tablet 2.5 mg PO BID 08/19/20 [History Last Taken 03/23/21] bilberry 100 mg capsule 100 mg PO DAILY cap 08/19/20 [History Last Taken 03/23/21] cholecalciferol (vitamin D3) 25 mcg PO SUMOWEFR 03/24/21 [History Last Taken 03/22/21] Prolia 60 mg SUBCUT UD 12/19/21 [History Last Taken Unknown] biotin 2,000 mcg PO DAILY 12/19/21 [History Last Taken Unknown] calcium 600 mg PO DAILY 12/19/21 [History Last Taken Unknown] glucosamine-methylsulfonylmeth 60 ml PO DAILY 12/19/21 [History Last Taken Unknown] omega-3 fatty acids 500 mg PO BID 12/19/21 [History Last Taken Unknown] Allergy/AdvReac Type Severity Reaction Status Date / Time propoxyphene [From Darvon] Allergy Mild unknown Verified 12/19/21 17:21 abaloparatide [From Tymlos] Allergy Other Verified 12/19/21 09:27 acetaminophen [From Vicodin] Allergy unknown Verified 12/19/21 17:21 hydrocodone [From Vicodin] Allergy unknown Verified 12/19/21 17:21 mesalamine Allergy Rash Verified 12/19/21 09:27 nickel Allergy Other Verified 12/19/21 17:21 codeine AdvReac Intermediate Vomiting Verified 12/19/21 09:27 gluten AdvReac Diarrhea Verified 12/19/21 09:27 soy AdvReac Upset Verified 12/19/21 09:27 Stomach sulfasalazine AdvReac Other Verified 12/19/21 17:21 Family History Father Diabetes Hypertension Grandmother Diabetes Hypertension Brother Hypertension Mother COPD (chronic obstructive pulmonary disease) Chronic mental illness Surgical History History of cholecystectomy History of tonsillectomy and adenoidectomy S/P appendectomy Social History household members: spouse housing: house current occupational status: retired Smoking Status: Never smoker alcohol intake: current alcohol intake frequency: a few times a month substance use type: does not use frequency: 3-4 times per week seatbelt use: always do you feel safe at home: Yes ROS ROS ED ROS Narrative Constitutional: No fever, no chills. HEENT: No sore throat. No neck pain. No loss of vision. No rhinorrhea. Cardiovascular: No chest pain. No palpitations. No pedal edema. Respiratory: No cough, no shortness of breath. Abdominal: Diffuse abdominal pain. Positive bloating. Positive nausea. No vomiting. Complains of abdominal distention. Genitourinary: No dysuria. No hematuria. Musculoskeletal: No myalgias. No arthralgias. Neurologic: No headaches. No dizziness. No lightheadedness. Skin: No rash. No change in color. Psychiatric: No depression. No anxiety. EXAM Physical Exam Narrative Exam Narrative: Afebrile. Vital signs noted. HEENT: Normocephalic. Atraumatic. PERRL, EOMI. Neck soft and supple. No point tenderness or step off. Cardiovascular: Regular rate and rhythm. No murmurs, rubs, or gallops appreciated. Respiratory: No tachypnea. Lungs clear to auscultation bilaterally. Gastrointestinal: Abdomen soft, diffusely tender, with decreased bowel sounds. No rebound or guarding. Mild distention with slight tympany. Neurological: Awake. Alert. Nonfocal, nonlateralizing. Skin: No rash. Normal color. No pallor. Musculoskeletal: No pedal edema. Full range of motion extremities. Const Vital Signs: 12/19/21 09:25 Temperature 98 F Temperature Source Temporal Pulse Rate 77 Respiratory Rate 18 Blood Pressure 156/83 H Blood Pressure Mean 107 Pulse Ox 100 Oxygen Delivery Method Room Air MDM MDM MDM Narrative Medical decision making narrative: Comprehensive work-up was pursued. Initially, I had performed a CT of the abdomen and pelvis without oral contrast. There is a distended appearance of the proximal small bowel loops raising concern for ileus versus developing partial small bowel obstruction. There is a linear band of density within the right lower quadrant that may represent surgical sutures and they recommend correlation with surgical history. In review of her chart, she did have a Meckel's diverticulum adhesion that was repaired by Dr. RIVERO. There is a small to moderate amount of fluid within the right pericolic gutter raising concern for inflammatory process in the right lower quadrant. I discussed the patient initially with Dr. Larson. She requested that CT with p.o. contrast be performed. The CT with p.o. contrast shows contrast within the stomach which appears to be at least part of barium there is contrast in the small bowel with mild distention of the duodenum. There is stasis appearance of the bowel loops in the right lower quadrant with tortuosity somewhat difficult to distinguish with visualized surgical material intervening with a small amount of fluid. The contrast does not reach the large bowel at this time. The concern is for partial small bowel obstruction. I rediscussed the patient with Dr. Larson. I had also discussed the findings with the patient. She requested that I speak with her primary care physician, Dr. De Luna. I did so, and as Dr. Rivero was not on-call, and Dr. Larson was, Dr. De Luna suggested to the patient also that she be consulted. I discussed this with the patient extensively, and she was agreeable to have Dr. Larson admit her to the medical surgical floor. She was admitted in stable condition. Lab Data Attestation: I reviewed the patient's lab results. Radiography Diagnostic Testing: Clinical Impression(s) from Imaging Studies Abdomen/Pelvis CT 12/19/21 09:42 IMPRESSION: There is a distended appearance of the proximal small bowel loops raising concern for ileus versus developing partial small bowel obstruction. There is a linear band of density within the right lower quadrant that may represent surgical sutures. Recommend correlation with surgical history. There is a small to moderate amount of fluid within the right greater than left pericolic gutter raising concern for possible inflammatory process in the right lower quadrant. Could consider a follow-up study such is upper GI small bowel follow-through .. Otherwise there is moderate to severe constipation. Electronically Signed: Kita Castro MD at 11:41 EST , Abdomen CT 12/19/21 12:06 IMPRESSION: There is contrast within the stomach which appears to be at least part of barium. There is contrast within the distal small bowel with mild distention of the duodenum. There is a stasis appearance of the bowel loops in the right lower quadrant with tortuosity somewhat difficult to distinguish with visualized surgical material intervening with a small amount of fluid. The contrast does not reach the large bowel this time. Image #33 of the coronal views suggest that there is tortuosity and distention of the small bowel as it crosses the midline towards the right side of the abdomen where there is focal narrowing. This could potentially be a subtle zone of transition for obstruction. There is an increasing amount of mildly complex fluid within the right-sided paracolic gutter indicating inflammatory process. There is no visualized free air. Electronically Signed: Kita Castro MD at 14:45 EST , ADDENDUM: 12/19/21 9826 IMPRESSION: There is contrast within the stomach which appears to be at least part of barium. There is contrast within the distal small bowel with mild distention of the duodenum. There is a stasis appearance of the bowel loops in the right lower quadrant with tortuosity somewhat difficult to distinguish with visualized surgical material intervening with a small amount of fluid. The contrast does not reach the large bowel this time. Image #33 of the coronal views suggest that there is tortuosity and distention of the small bowel as it crosses the midline towards the right side of the abdomen where there is focal narrowing. This could potentially be a subtle zone of transition for obstruction. There is an increasing amount of mildly complex fluid within the right-sided paracolic gutter indicating inflammatory process. There is no visualized free air. N.B. : The above Results were Read Back by Kita Castro MD to Dr. Lee Aden MD, and understanding confirmed on 12/19/2021 14:49:35 (ET). Electronically Signed: Kita Castro MD at 14:45 EST Reading Location ID and State: [facility] / [place] Tel , Service support , Discharge Plan Dx/Rx/DC Orders Clinical Impression: Abdominal pain, Partial small bowel obstruction Disposition Disposition: Acute Care Hospital [facility] Discharge Date/Time: 12/19/21 17:07
[2021-12-19 10:18] LABS: Absolute Lymphocyte Count 1.46 X10^3/uL (0.83-4.51); Absolute Neutrophil Count 8.3 X10^3/uL (2.0-7.7); Basophil# 0.04 X10^3/uL; Basophil% 0.4 % (0-1); Eosinophil# 0.06 X10^3/uL; Eosinophils% 0.5 % (0-5); Hematocrit 37.7 % (37-47); Hemoglobin 12.9 g/dL (12.0-15.0); Lymphocyte # 1.46 X10^3/ul (0.83-4.51); Lymphocyte % 13.1 % (19-41); Mean Corp Hgb Conc 34.2 g/dL (32-36); Mean Corpuscular Hgb 32.7 pg (27.0-32.0); Mean Corpuscular Volume 95.7 fL (81-99); Mean Platelet Vol. 10.7 fl (6.2-12.0); Monocyte% 10.8 % (0-10); NRBC Flagged by Analyzer 0 % (0-5); Neutrophil # 8.34 X10^3/uL (2.7-7.7); Neutrophil % 74.8 % (47-70); Platelet Count 334 K/mm3 (150-450); RBC Distribution Width CV 14.1 % (11.6-14.6); RBC Distribution Width SD 49.7 fl (35.1-43.9); Red Blood Count 3.94 M/mm3 (4.2-5.4); White Blood Count 11.1 K/mm3 (4.4-11.0)
[2021-12-19 10:35] LABS: ALB/GLOB Ratio 1.1 RATIO (0.9-2.4); AST(SGOT) 20 U/L (15-37); Alanine Aminotransfer ALT/SGPT 23 U/L (13-56); Albumin, Serum 3.6 g/dL (3.2-5.0); Alkaline Phosphatase 51 U/L (45-117); Anion Gap 5 (5-15); BUN 13 mg/dL (7-18); Calcium,Total 8.5 mg/dL (8.5-10.1); Chloride 104 mmol/L (98-107); Creatinine, Serum 0.72 mg/dL (0.55-1.02); EST Glomerular Filtration Rate 84 mL/min (>60); Est Glom Filt Rate - Afr Amer 101 mL/min (>60); Estimated Creatinine Clearance 37.81 ml/min; Globulin 3.3 g/dL (2.2-4.2); Glucose 109 mg/dL (74-106); Lipase 66 U/L (73-393); Potassium 3.9 mmol/L (3.5-5.1); Protein, Total 6.9 g/dL (6.4-8.2); Sodium Level 133 mmol/L (136-145)
[2021-12-19 10:43] LABS: Bacteria 0 SEEN /hpf (None Seen); Mucous, Urine 0 SEEN /hpf (<or=2+); Red Blood Cells-Urine 0 SEEN /hpf (0-5); Squamous Epithelial Cells - UA 0 SEEN /hpf (5-10); White Blood Cells 0 SEEN /hpf (0-5)
[2021-12-19 11:03] LABS: Color, Urine Yellow (Yellow); Glucose, Dipstick Normal (Normal); Ketone-Dipstick 50 mg/dl (Negative); Leukocyte Esterase-Dipstick Negative /ul (Negative); Nitrite-Dipstick Negative (Negative); Occult Blood-Urine Negative /ul (Negative); Protein-Dipstick 15 mg/dl (Negative); Specific Gravity, Urine 1.015 (1.002-1.030); Urine Bilirubin Dipstick Negative (Negative); Urine Clarity Clear (Clear); Urine Urobilinogen Normal (Normal)
--- NOTE | 2021-12-19 12:06 | CT_ITS ---
We are attempting to reach an attending provider to discuss findings. An addendum with communication details will be sent when the communication is complete. STUDY: CT ABDOMEN AND PELVIS WITHOUT CONTRAST REASON FOR EXAM: Female, 71 years old. Bowel obstruction RADIATION DOSAGE (If Supplied By Facility): CTDIvol = ( 6.04 ) mGy, DLP = ( 244.6 ) mGycm TECHNIQUE: Transaxial images were obtained from the dome of the diaphragm to the symphysis pubis without oral contrast, and without intravenous contrast. Sagittal and coronal images were reconstructed. Individualized dose optimization techniques were used for this CT. COMPARISON: December 19, 2021 CT scan abdomen and pelvis FINDINGS: There are calcified granulomas in the right lower lobe. The visualized portions of the heart are within normal limits. There is a small stable cyst in the right hepatic lobe measuring 4.6 mm. There is non-visualization of the gallbladder, which may be secondary to either contraction or a prior cholecystectomy. Normal spleen. Normal pancreas. Normal bilateral adrenal glands. There is right renal pelviectasis and crowding. Normal left kidney. There is visualized hyperdense contrast within the stomach suggestive of barium. There is contrast within the proximal small bowel which does not reach loops of distal small bowel. There is moderate stool within the visualized colon. There is visualization of a focus of postoperative change within the right upper quadrant within the bordering the small bowel. There is postoperative change in the right lower quadrant where there is visualized edema. There is non-visualization of the appendix. Normal abdominal aorta. Normal inferior vena cava. Normal retroperitoneum. The bladder is partially filled with contrast. There is atrophy of the uterus. Normal abdominal wall. There are diffuse degenerative changes of the visualized lumbar spine. CT/Abdomen/Pel W ORAL Cont Only IMPRESSION: There is contrast within the stomach which appears to be at least part of barium. There is contrast within the distal small bowel with mild distention of the duodenum. There is a stasis appearance of the bowel loops in the right lower quadrant with tortuosity somewhat difficult to distinguish with visualized surgical material intervening with a small amount of fluid. The contrast does not reach the large bowel this time. Image #33 of the coronal views suggest that there is tortuosity and distention of the small bowel as it crosses the midline towards the right side of the abdomen where there is focal narrowing. This could potentially be a subtle zone of transition for obstruction. There is an increasing amount of mildly complex fluid within the right-sided paracolic gutter indicating inflammatory process. There is no visualized free air. Electronically Signed: Kita Castro MD at 14:45 EST ,
[2021-12-19 13:21] LABS: Lactic Acid 0.6 mmol/L (0.4-1.9)
--- NOTE | 2021-12-19 15:29 | NURSING ---
MED SURG [facility]IK[facility] PARTIAL SMALL BOWEL OBSTRUCTION
--- NOTE | 2021-12-19 16:05 | HP.PCM.SX_ITS ---
HPI - General HPI Narrative KATHRIN BRAVO, is a 71 F who presents with partial bowel obstruction. She is s/p mini exploratory laparotomy in March [address] Tavarez for similar presentation. She actually wanted Dr. Tavarez, but she was told that he was unavailable at this time. She agreed to me admitting her and that she wanted a consult for Dr. Tavarez on Monday morning. She states that she has had abdominal pain for the past two days. She last had a bowel movement yesterday afternoon. She last had flatus this morning. While she was in the ED, just before this encounter, she states that she had a bowel movement and passed flatus. She wanted to be admitted because she was in too much pain. I had asked what type of pain medication would she prefer and she states that she will only take acetaminophen or ibuprofen because she has side effects to narcotics, mainly nausea and emesis. When I offered her zofran, she declines this because it gives her headaches. I told her that for pain, I would prescribe toradol and she stated OK to this. [facility] Medical History Abdominal pain Cholecystectomy planned Clavicle fracture History of stress test HTN (hypertension) IBS (irritable bowel syndrome) Meckel diverticulum Osteopenia Home Medications Lactobacillus acidophilus 100 mg PO BID 09/26/17 [History Last Taken 03/23/21] calcium carb-magnesium oxide-vit C 400 mg calcium-117 mg-167 mg tablet tab PO 09/26/17 [History Last Taken 03/23/21] yvcaoiyofjr-nhd-tzgypsjtx-hrb 149-hyalur 500 mg-500 mg-66.7 mg tablet tab PO 09/26/17 [History Last Taken Unknown] multivitamin 0.5 tab PO BID 09/26/17 [History Last Taken 03/23/21] amlodipine 5 mg tablet 2.5 tab PO BID 08/19/20 [History Last Taken 03/23/21] bilberry 100 mg capsule 100 mg PO DAILY cap 08/19/20 [History Last Taken 03/23/21] cholecalciferol (vitamin D3) 25 mcg PO MOWEFRSA 03/24/21 [History Last Taken 03/22/21] docosahexaenoic acid-epa 1 cap PO BID 03/24/21 [History Last Taken 03/23/21] Allergy/AdvReac Type Severity Reaction Status Date / Time propoxyphene [From Darvon] Allergy Mild unknown Verified 12/19/21 09:27 abaloparatide [From Tymlos] Allergy Other Verified 12/19/21 09:27 acetaminophen [From Vicodin] Allergy unknown Verified 12/19/21 09:27 hydrocodone [From Vicodin] Allergy unknown Verified 12/19/21 09:27 mesalamine Allergy Rash Verified 12/19/21 09:27 nickel Allergy Other Verified 12/19/21 09:27 codeine AdvReac Intermediate Vomiting Verified 12/19/21 09:27 gluten AdvReac Diarrhea Verified 12/19/21 09:27 soy AdvReac Upset Verified 12/19/21 09:27 Stomach sulfasalazine AdvReac Other Verified 12/19/21 09:27 Family History Father Diabetes Hypertension Grandmother Diabetes Hypertension Brother Hypertension Mother COPD (chronic obstructive pulmonary disease) Chronic mental illness Surgical History (Updated 12/19/21 @ 16:[address] Dorothy Larson MD) History of cholecystectomy History of tonsillectomy and adenoidectomy S/P appendectomy Social History household members: spouse housing: house current occupational status: retired Smoking Status: Never smoker alcohol intake: current alcohol intake frequency: a few times a month substance use type: does not use frequency: 3-4 times per week seatbelt use: always do you feel safe at home: Yes ROS Constitutional Constitutional: Denies fever(s) or weight gain Respiratory/Chest Respiratory/Chest: Denies dyspnea or productive cough Gastrointestinal Gastrointestinal: Reports other Details: see HPI Genitourinary Genitourinary: Denies hematuria Musculoskeletal Musculoskeletal: Reports joint pain Integumentary Integumentary: Denies jaundice Neurologic Neurologic: Denies abnormal gait Vital Signs Vital Signs Vital Signs: 12/19/21 09:25 12/19/21 12:51 Temperature 98 F Temperature Source Temporal Pulse Rate 77 Respiratory Rate 18 Blood Pressure 156/83 H 133/88 H Blood Pressure Mean 107 103 Pulse Ox 100 Oxygen Delivery Method Room Air Room Air Weight Weight: 52.163 kg Body Mass Index (BMI) 21.7 Physical Exam Narrative Patient is in no apparent distress, she walked to the bathroom by herself eschewing assistance from the nurses Const alert and oriented x3 General Appearance: cooperative and comfortable Resp normal respiratory effort Cardio regular rate GI Inspection: abdominal distention Palpation: tender Extremity no clubbing, cyanosis or edema Results Lab / Micro Data Result Diagrams: 12/19/21 10:10 12/19/21 10:10 Labs: Laboratory Results - last 24 hr 12/19/21 10:10: WBC 11.1 H, RBC 3.94 L, Hgb 12.9, Hct 37.7, MCV 95.7, MCH 32.7 H , MCHC 34.2, RDW Std Deviation 49.7 H, RDW Coeff of Fuad 14.1, Plt Count 334, MPV 10.7, Immature Gran % (Auto) 0.400, Neut % (Auto) 74.8 H, Lymph % (Auto) 13.1 L, [place] % (Auto) 10.8 H, Eos % (Auto) 0.5, Baso % (Auto) 0.4, Absolute Neuts (auto) 8.3 H, Absolute Lymphs (auto) 1.46, Nucleated RBC % 0 12/19/21 10:10: Sodium 133 L, Potassium 3.9, Chloride 104, Carbon Dioxide 24.0, Anion Gap 5, BUN 13, Creatinine 0.72, Estim Creat Clear Calc 37.81, Est GFR (MDRD) Af Amer 101, Est GFR (MDRD) Non-Af 84, BUN/Creatinine Ratio 18.0, Glucose 109 H, Calcium 8.5, Total Bilirubin 0.60, AST 20, ALT 23, Alkaline Phosphatase 51, Total Protein 6.9, Albumin 3.6, Globulin 3.3, Albumin/Globulin Ratio 1.1, Lipase 66 L 12/19/21 10:40: Urine Color Yellow, Urine Clarity Clear, Urine pH 7.0, Ur Specific [place] 1.015, Urine Protein 15 H, Urine Glucose (UA) Normal, Urine Ketones 50 H, Urine Occult Blood Negative, Urine Nitrite Negative, Urine Bilirubin Negative, Urine Urobilinogen Normal, Ur Leukocyte Esterase Negative, Urine RBC 0 SEEN, Urine WBC 0 SEEN, Ur Squamous Epith Cells 0 SEEN, Urine Bacteria 0 SEEN, Urine Mucus 0 SEEN 03/06/22 12:30: Lactic Acid 0.6 Radiology Impression Abdomen/Pelvis CT 12/19/21 09:42 IMPRESSION: There is a distended appearance of the proximal small bowel loops raising concern for ileus versus developing partial small bowel obstruction. There is a linear band of density within the right lower quadrant that may represent surgical sutures. Recommend correlation with surgical history. There is a small to moderate amount of fluid within the right greater than left pericolic gutter raising concern for possible inflammatory process in the right lower quadrant. Could consider a follow-up study such is upper GI small bowel follow-through .. Otherwise there is moderate to severe constipation. Electronically Signed: Kita Castro MD at 11:41 EST , Abdomen CT 12/19/21 12:06 IMPRESSION: There is contrast within the stomach which appears to be at least part of barium. There is contrast within the distal small bowel with mild distention of the duodenum. There is a stasis appearance of the bowel loops in the right lower quadrant with tortuosity somewhat difficult to distinguish with visualized surgical material intervening with a small amount of fluid. The contrast does not reach the large bowel this time. Image #33 of the coronal views suggest that there is tortuosity and distention of the small bowel as it crosses the midline towards the right side of the abdomen where there is focal narrowing. This could potentially be a subtle zone of transition for obstruction. There is an increasing amount of mildly complex fluid within the right-sided paracolic gutter indicating inflammatory process. There is no visualized free air. Electronically Signed: Kita Castro MD at 14:45 EST , ADDENDUM: 12/19/21 [id number] IMPRESSION: There is contrast within the stomach which appears to be at least part of barium. There is contrast within the distal small bowel with mild distention of the duodenum. There is a stasis appearance of the bowel loops in the right lower quadrant with tortuosity somewhat difficult to distinguish with visualized surgical material intervening with a small amount of fluid. The contrast does not reach the large bowel this time. Image #33 of the coronal views suggest that there is tortuosity and distention of the small bowel as it crosses the midline towards the right side of the abdomen where there is focal narrowing. This could potentially be a subtle zone of transition for obstruction. There is an increasing amount of mildly complex fluid within the right-sided paracolic gutter indicating inflammatory process. There is no visualized free air. N.B. : The above Results were Read Back by Kita Castro MD to Dr. Lee Aden MD, and understanding confirmed on 12/19/2021 14:49:35 (ET). Electronically Signed: Kita Castro MD at 14:45 EST , Assessment & Plan Assessment/Plan (1) Abdominal pain: (2) Partial small bowel obstruction: PLAN: Will admit patient to hospital Plan IV hydration, NG tube decompression, appropriate pain medications Will consult Internal Medicine for medical management for HTN as patient will be NPO Patient requests that I consult Dr. Tavarez Monday morning and I will do so.
[2021-12-19] MEDS: Lidocaine 4% 5 ML Ampul 2 ML INHALATION (16:10)
[2021-12-19] MEDS: Oxymetazoline 0.05% 1 SPRAY SPRAY.BTL 2 SPRAY NASAL (16:16)
--- NOTE | 2021-12-19 16:40 | RAD_ITS ---
STUDY: X-RAY - ABDOMEN/PELVIS REASON FOR EXAM: Female, 71 years old. Tube Placement -- KUB with both diaphragms for NG/OG Verification TECHNIQUE: Single AP view of the abdomen / pelvis. COMPARISON: 03/25/2021 FINDINGS: Nasogastric tube coiled in the left upper quadrant with the tip in the fundus the stomach. There is an unremarkable bowel gas pattern. There is no demonstrated free abdominal air. The visualized liver, spleen and kidneys are grossly normal in size and morphology. Normal soft tissue structures. Normal visualized osseous structures. RAD/Abdomen Single View (Portable) IMPRESSION: Nasogastric tube with the tip in the fundus the stomach. Electronically Signed: Ramos Abdi MD at 16:54 EST ,
--- NOTE | 2021-12-19 16:44 | CON.PCM.HO_ITS ---
Assessment & Plan Assessment/Plan (1) Partial small bowel obstruction: (2) HTN (hypertension): QUALIFIERS: Hypertension type: primary hypertension Qualified Code(s): I10 - Essential (primary) hypertension PLAN: 1. Partial small bowel obstruction NG tube placed Further management per general surgery Patient does not wish to utilize narcotics. Agree with the ketorolac as needed. On IV fluids per general surgery 2. Hypertension Fair control at this time Amlodipine being held as patient is currently n.p.o. for small bowel obstruction 3. VTE prophylaxis: SCDs Thank you for the consult. The hospitalist service will continue to follow along during this patient's hospitalization. HPI Consult Data Date of Consult: 12/19/21 HPI Narrative Reason for Consultation: Medical Mgmt. HTN HPI Narrative: KATHRIN BRAVO, is a 71 F who presents due to history of abdominal pain. Patient had a CAT scan that showed that the contrast had not reached the large bowel. Patient still having too much pain despite in the emergency room was able to have a bowel movement and some flatus. NG tube about the replaced emergency room. Patient has had history of a small bowel obstructions. Patient has numerous intolerance to medications particularly narcotics. She does not wish to be on any narcotics at this time. [facility] Medical History Abdominal pain Cholecystectomy planned Clavicle fracture History of stress test HTN (hypertension) IBS (irritable bowel syndrome) Meckel diverticulum Osteopenia Home Medications Lactobacillus acidophilus 100 mg PO BID 09/26/17 [History Last Taken 03/23/21] multivitamin 0.5 tab PO BID 09/26/17 [History Last Taken 03/23/21] amlodipine 5 mg tablet 2.5 mg PO BID 08/19/20 [History Last Taken 03/23/21] bilberry 100 mg capsule 100 mg PO DAILY cap 08/19/20 [History Last Taken 03/23/21] cholecalciferol (vitamin D3) 25 mcg PO SUMOWEFR 03/24/21 [History Last Taken 03/22/21] biotin 2,000 mcg PO DAILY 12/19/21 [History Last Taken Unknown] calcium 600 mg PO DAILY 12/19/21 [History Last Taken Unknown] denosumab [Prolia] 60 mg SUBCUT UD 12/19/21 [History Last Taken Unknown] glucosamine-methylsulfonylmeth [Glucosamine Msm] 60 ml PO DAILY 12/19/21 [History Last Taken Unknown] omega-3 fatty acids [Fish Oil] 500 mg PO BID 12/19/21 [History Last Taken Unknown] Allergy/AdvReac Type Severity Reaction Status Date / Time propoxyphene [From Darvon] Allergy Mild unknown Verified 12/19/21 09:27 abaloparatide [From Tymlos] Allergy Other Verified 12/19/21 09:27 acetaminophen [From Vicodin] Allergy unknown Verified 12/19/21 09:27 hydrocodone [From Vicodin] Allergy unknown Verified 12/19/21 09:27 mesalamine Allergy Rash Verified 12/19/21 09:27 nickel Allergy Other Verified 12/19/21 09:27 codeine AdvReac Intermediate Vomiting Verified 12/19/21 09:27 gluten AdvReac Diarrhea Verified 12/19/21 09:27 soy AdvReac Upset Verified 12/19/21 09:27 Stomach sulfasalazine AdvReac Other Verified 12/19/21 09:27 Family History Father Diabetes Hypertension Grandmother Diabetes Hypertension Brother Hypertension Mother COPD (chronic obstructive pulmonary disease) Chronic mental illness Surgical History History of cholecystectomy History of tonsillectomy and adenoidectomy S/P appendectomy Social History household members: spouse housing: house current occupational status: retired Smoking Status: Never smoker alcohol intake: current alcohol intake frequency: a few times a month substance use type: does not use frequency: 3-4 times per week seatbelt use: always do you feel safe at home: Yes ROS ROS Narrative With short of breath. But improved after aerosols. All review of systems were negative except as mentioned above in the history of present illness and the other review of systems. Physical Exam Const alert General Appearance: cooperative Resp normal respiratory effort, no retractions, no use of accessory muscles and clear to auscultation bilaterally Cardio regular rate, regular rhythm, S1 normal heart sound and S2 normal heart sound GI GI Narrative: Slight distention Auscultation: hypoactive bowel sounds Extremity normal to inspection Lab / Micro Data Result Diagrams: 12/19/21 10:10 12/19/21 10:10 Labs: Laboratory Results - last 24 hr 12/19/21 10:10: WBC 11.1 H, RBC 3.94 L, Hgb 12.9, Hct 37.7, MCV 95.7, MCH 32.7 H , MCHC 34.2, RDW Std Deviation 49.7 H, RDW Coeff of Fuad 14.1, Plt Count 334, MPV 10.7, Immature Gran % (Auto) 0.400, Neut % (Auto) 74.8 H, Lymph % (Auto) 13.1 L, [place] % (Auto) 10.8 H, Eos % (Auto) 0.5, Baso % (Auto) 0.4, Absolute Neuts (auto) 8.3 H, Absolute Lymphs (auto) 1.46, Nucleated RBC % 0 12/19/21 10:10: Sodium 133 L, Potassium 3.9, Chloride 104, Carbon Dioxide 24.0, Anion Gap 5, BUN 13, Creatinine 0.72, Estim Creat Clear Calc 37.81, Est GFR (MDRD) Af Amer 101, Est GFR (MDRD) Non-Af 84, BUN/Creatinine Ratio 18.0, Glucose 109 H, Calcium 8.5, Total Bilirubin 0.60, AST 20, ALT 23, Alkaline Phosphatase 51, Total Protein 6.9, Albumin 3.6, Globulin 3.3, Albumin/Globulin Ratio 1.1, Lipase 66 L 12/19/21 10:40: Urine Color Yellow, Urine Clarity Clear, Urine pH 7.0, Ur Speci fic [place] 1.015, Urine Protein 15 H, Urine Glucose (UA) Normal, Urine Ketones 50 H, Urine Occult Blood Negative, Urine Nitrite Negative, Urine Bilirubin Negative, Urine Urobilinogen Normal, Ur Leukocyte Esterase Negative, Urine RBC 0 SEEN, Urine WBC 0 SEEN, Ur Squamous Epith Cells 0 SEEN, Urine Bacteria 0 SEEN, Urine Mucus 0 SEEN 12/19/21 12:30: Lactic Acid 0.6 Radiology Impression Abdomen/Pelvis CT 12/19/21 09:42 IMPRESSION: There is a distended appearance of the proximal small bowel loops raising concern for ileus versus developing partial small bowel obstruction. There is a linear band of density within the right lower quadrant that may represent surgical sutures. Recommend correlation with surgical history. There is a small to moderate amount of fluid within the right greater than left pericolic gutter raising concern for possible inflammatory process in the right lower quadrant. Could consider a follow-up study such is upper GI small bowel follow-through .. Otherwise there is moderate to severe constipation. Electronically Signed: Kita Castro MD at 11:41 EST , Abdomen CT 12/19/21 12:06 IMPRESSION: There is contrast within the stomach which appears to be at least part of barium. There is contrast within the distal small bowel with mild distention of the duodenum. There is a stasis appearance of the bowel loops in the right lower quadrant with tortuosity somewhat difficult to distinguish with visualized surgical material intervening with a small amount of fluid. The contrast does not reach the large bowel this time. Image #33 of the coronal views suggest that there is tortuosity and distention of the small bowel as it crosses the midline towards the right side of the abdomen where there is focal narrowing. This could potentially be a subtle zone of transition for obstruction. There is an increasing amount of mildly complex fluid within the right-sided paracolic gutter indicating inflammatory process. There is no visualized free air. Electronically Signed: Kita Castro MD at 14:45 EST , ADDENDUM: 12/19/21 0546 IMPRESSION: There is contrast within the stomach which appears to be at least part of barium. There is contrast within the distal small bowel with mild distention of the duodenum. There is a stasis appearance of the bowel loops in the right lower quadrant with tortuosity somewhat difficult to distinguish with visualized surgical material intervening with a small amount of fluid. The contrast does not reach the large bowel this time. Image #33 of the coronal views suggest that there is tortuosity and distention of the small bowel as it crosses the midline towards the right side of the abdomen where there is focal narrowing. This could potentially be a subtle zone of transition for obstruction. There is an increasing amount of mildly complex fluid within the right-sided paracolic gutter indicating inflammatory process. There is no visualized free air. N.B. : The above Results were Read Back by Kita Castro MD to Dr. Lee Aden MD, and understanding confirmed on 12/19/2021 14:49:35 (ET). Electronically Signed: Kita Castro MD at 14:45 EST Reading Location ID and State: [facility] / [place] Tel , Service support , Charges/Coding Visit Charges Office Visits / Consults: [id number] OP Consult L3
[2021-12-19] MEDS: Lactated Ringers 1,000 ML 125 ML IV (17:29)
[2021-12-19] MEDS: 0.9% Saline Lock 10 ML Syringe IV (18:03)
[2021-12-19] MEDS: Acetaminophen 650 MG Suppository RC (18:03)
[2021-12-19] MEDS: Famotidine 200 MG/20 ML MDV 20 MG in 0.9% Normal Saline (Pres. free 8 ML 300 MG IV (21:59)
[2021-12-20] MEDS: Lactated Ringers 1,000 ML 125 ML IV ×2 (01:38→09:33)
[2021-12-20] MEDS: Acetaminophen 650 MG Suppository RC (01:43)
[2021-12-20 01:54] VITALS: BP 121/78; PULSE 82; RESP 16; TEMP 37.1; O2SAT 97
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
--- NOTE | 2021-12-20 06:25 | RAD_ITS ---
STUDY: X-RAY - ABDOMEN/PELVIS REASON FOR EXAM: Female, 71 years old. Constipation TECHNIQUE: AP supine and upright views of the abdomen and pelvis. COMPARISON: 12/19/2021 FINDINGS: Nasogastric tube with the tip in the fundus the stomach which is unchanged. There is an unremarkable bowel gas pattern. There is no demonstrated free abdominal air. Oral contrast throughout the colon. The visualized liver, spleen and kidneys are grossly normal in size and morphology. Normal soft tissue structures. Normal visualized osseous structures. RAD/Abd Inc Decub and/or Erect IMPRESSION: 1. Nasogastric tube with the tip in the fundus of the stomach which is unchanged. 2. Oral contrast throughout the colon. 3. No bowel obstruction. 4. No pneumoperitoneum. Electronically Signed: Ramos Abdi MD at 8:14 EST ,
[2021-12-20 06:39] LABS: Absolute Lymphocyte Count 2.19 X10^3/uL (0.83-4.51); Absolute Neutrophil Count 5.4 X10^3/uL (2.0-7.7); Basophil# 0.04 X10^3/uL; Basophil% 0.4 % (0-1); Eosinophil# 0.09 X10^3/uL; Hematocrit 36.7 % (37-47); Hemoglobin 12.5 g/dL (12.0-15.0); Lymphocyte # 2.19 X10^3/ul (0.83-4.51); Lymphocyte % 24.6 % (19-41); Mean Corp Hgb Conc 34.1 g/dL (32-36); Mean Corpuscular Hgb 32.6 pg (27.0-32.0); Mean Corpuscular Volume 95.6 fL (81-99); Mean Platelet Vol. 10.6 fl (6.2-12.0); Monocyte# 1.14 X10^3/uL; Monocyte% 12.8 % (0-10); NRBC Flagged by Analyzer 0 % (0-5); Neutrophil # 5.42 X10^3/uL (2.7-7.7); Neutrophil % 60.8 % (47-70); Platelet Count 320 K/mm3 (150-450); RBC Distribution Width CV 14.2 % (11.6-14.6); Red Blood Count 3.84 M/mm3 (4.2-5.4); White Blood Count 8.9 K/mm3 (4.4-11.0)
[2021-12-20 07:01] LABS: Anion Gap 5 (5-15); BUN 10 mg/dL (7-18); BUN/Creat Ratio 15.3 RATIO (10-20); Calcium,Total 8.4 mg/dL (8.5-10.1); Chloride 105 mmol/L (98-107); Creatinine, Serum 0.65 mg/dL (0.55-1.02); EST Glomerular Filtration Rate 95 mL/min (>60); Est Glom Filt Rate - Afr Amer 114 mL/min (>60); Estimated Creatinine Clearance 37.81 ml/min; Glucose 96 mg/dL (74-106); Potassium 3.7 mmol/L (3.5-5.1); Sodium Level 135 mmol/L (136-145)
[2021-12-20 07:27] VITALS: BP 130/73; PULSE 68; RESP 16; TEMP 36.1; O2SAT 99
--- NOTE | 2021-12-20 07:30 | PN.HOSP_ITS ---
Subjective Subjective Patient is a 71-year-old lady who presented with abdominal pain. Imaging studies obtained on admission demonstrated partial small bowel obstruction. Admitted to the general as surgery service with consultation placed to hospital medicine Objective Data Objective Data Vital Signs: Vital Signs Temp Pulse Resp BP Pulse Ox 97.0 F L 68 16 130/73 H 99 12/20/21 07:27 12/20/21 07:27 12/20/21 07:27 12/20/21 07:27 12/20/21 07:27 Oxygen Delivery Method Room Air Weight: 50.5 kg Body Mass Index (BMI) 20.3 Intake & Output: Intake and Output for Last 24 Hours 12/18/21 12/19/21 12/20/21 23:59 23:59 23:59 Intake Total 40 / 40 1000 / 1000 Output Total 400 / 400 Balance 40 / 40 600 / 600 Lab / Micro Data Result Diagrams: 12/20/21 06:28 12/20/21 06:28 Labs: Laboratory Results - last 24 hr 12/19/21 10:10: WBC 11.1 H, RBC 3.94 L, Hgb 12.9, Hct 37.7, MCV 95.7, MCH 32.7 H , MCHC 34.2, RDW Std Deviation 49.7 H, RDW Coeff of Fuad 14.1, Plt Count 334, MPV 10.7, Immature Gran % (Auto) 0.400, Neut % (Auto) 74.8 H, Lymph % (Auto) 13.1 L, [place] % (Auto) 10.8 H, Eos % (Auto) 0.5, Baso % (Auto) 0.4, Absolute Neuts (auto) 8.3 H, Absolute Lymphs (auto) 1.46, Nucleated RBC % 0 12/19/21 10:10: Sodium 133 L, Potassium 3.9, Chloride 104, Carbon Dioxide 24.0, Anion Gap 5, BUN 13, Creatinine 0.72, Estim Creat Clear Calc 37.81, Est GFR (MDRD) Af Amer 101, Est GFR (MDRD) Non-Af 84, BUN/Creatinine Ratio 18.0, Glucose 109 H, Calcium 8.5, Total Bilirubin 0.60, AST 20, ALT 23, Alkaline Phosphatase 51, Total Protein 6.9, Albumin 3.6, Globulin 3.3, Albumin/Globulin Ratio 1.1, Lipase 66 L 12/19/21 10:40: Urine Color Yellow, Urine Clarity Clear, Urine pH 7.0, Ur Specific [place] 1.015, Urine Protein 15 H, Urine Glucose (UA) Normal, Urine Ketones 50 H, Urine Occult Blood Negative, Urine Nitrite Negative, Urine Bilirubin Negative, Urine Urobilinogen Normal, Ur Leukocyte Esterase Negative, Urine RBC 0 SEEN, Urine WBC 0 SEEN, Ur Squamous Epith Cells 0 SEEN, Urine Bacteria 0 SEEN, Urine Mucus 0 SEEN 12/19/21 12:30: Lactic Acid 0.6 12/20/21 06:28: Sodium 135 L, Potassium 3.7, Chloride 105, Carbon Dioxide 25.0, Anion Gap 5, BUN 10, Creatinine 0.65, Estim Creat Clear Calc 37.81, Est GFR (MDRD) Af Amer 114, Est GFR (MDRD) Non-Af 95, BUN/Creatinine Ratio 15.3, Glucose 96, Calcium 8.4 L 12/20/21 06:28: WBC 8.9, RBC 3.84 L, Hgb 12.5, Hct 36.7 L, MCV 95.6, MCH 32.6 H, MCHC 34.1, RDW Std Deviation 50.0 H, RDW Coeff of [place]ad 14.2, Plt Count 320, MPV 10.6, Immature Gran % (Auto) 0.400, Neut % (Auto) 60.8, Lymph % (Auto) 24.6, [place] % (Auto) 12.8 H, Eos % (Auto) 1.0, Baso % (Auto) 0.4, Absolute Neuts (auto) 5.4, Absolute Lymphs (auto) 2.19, Nucleated RBC % 0 Radiography Diagnostic Testing: Radiology Impression Abdomen/Pelvis CT 12/19/21 09:42 IMPRESSION: There is a distended appearance of the proximal small bowel loops raising concern for ileus versus developing partial small bowel obstruction. There is a linear band of density within the right lower quadrant that may represent surgical sutures. Recommend correlation with surgical history. There is a small to moderate amount of fluid within the right greater than left pericolic gutter raising concern for possible inflammatory process in the right lower quadrant. Could consider a follow-up study such is upper GI small bowel follow-through .. Otherwise there is moderate to severe constipation. Electronically Signed: Kita Castro MD at 11:41 EST , Abdomen CT 12/19/21 12:06 IMPRESSION: There is contrast within the stomach which appears to be at least part of barium. There is contrast within the distal small bowel with mild distention of the duodenum. There is a stasis appearance of the bowel loops in the right lower quadrant with tortuosity somewhat difficult to distinguish with visualized surgical material intervening with a small amount of fluid. The contrast does not reach the large bowel this time. Image #33 of the coronal views suggest that there is tortuosity and distention of the small bowel as it crosses the midline towards the right side of the abdomen where there is focal narrowing. This could potentially be a subtle zone of transition for obstruction. There is an increasing amount of mildly complex fluid within the right-sided paracolic gutter indicating inflammatory process. There is no visualized free air. Electronically Signed: Kita Castro MD at 14:45 EST , ADDENDUM: 12/19/21 1456 IMPRESSION: There is contrast within the stomach which appears to be at least part of barium. There is contrast within the distal small bowel with mild distention of the duodenum. There is a stasis appearance of the bowel loops in the right lower quadrant with tortuosity somewhat difficult to distinguish with visualized surgical material intervening with a small amount of fluid. The contrast does not reach the large bowel this time. Image #33 of the coronal views suggest that there is tortuosity and distention of the small bowel as it crosses the midline towards the right side of the abdomen where there is focal narrowing. This could potentially be a subtle zone of transition for obstruction. There is an increasing amount of mildly complex fluid within the right-sided paracolic gutter indicating inflammatory process. There is no visualized free air. N.B. : The above Results were Read Back by Kita Castro MD to Dr. Lee Aden MD, and understanding confirmed on 12/19/2021 14:49:35 (ET). Electronically Signed: Kita Castro MD at 14:45 EST , KUB X-Ray 12/19/21 16:40 IMPRESSION: Nasogastric tube with the tip in the fundus the stomach. Electronically Signed: Ramos Abdi MD at 16:54 EST , Physical Exam Narrative GENERAL: cooperative HEENT: Atraumatic;NG tube in place EYES; Anicteric, Normal Conjunctiva NECK; supple, normal thyroid, RESPIRATORY: Diminished to auscultation CARDIOVASCULAR: Regular S1 S2, GI: soft, normoactive bowel sounds, : No Renal angle tenderness; EXTREMITIES: No edema, no clubbing, MUSCULOSKELETAL: no muscle wasting NEURO: Awake; no lateralizing signs. SKIN: No Rash PSYCH; Flat affect Assessment & Plan Assessment/Plan (1) Partial small bowel obstruction: (2) HTN (hypertension): QUALIFIERS: Hypertension type: primary hypertension Qualified Code(s): I10 - Essential (primary) hypertension PLAN: Patient is a 71-year-old lady who presented with abdominal pain. Imaging studies obtained on admission demonstrated partial small bowel obstruction. Admitted to the general as surgery service with consultation placed to hospital medicine 1. Partial small bowel obstruction ?Patient managed conservatively - Patient admitted having a bowel movement plan is to discontinue NG start on clear liquid to be advanced as tolerated 2. Hypertension - Blood pressure controlled, home medications continued with dose adjustment as needed 3. Osteoporosis ?Patient is On Denosumab 4. DVT prophylaxis ?SC Lovenox Charges/Coding Visit Charges Inpatient E&M: 50241 Subs Hosp L2
--- NOTE | 2021-12-20 13:41 | PCM.DC ---
Discharge Instructions Diet Discharge Diet: - (Clear liquid diet today and tomorrow then advance as tolerated on Monday) Activity Discharge Activity: Return to Normal Activity Follow Up Care Please Follow Up With: Terry Tavarez MD When: Monday for colonoscopy on 12/24/21 Test Results: Test results from this visit will be discussed in further detail at your follow-up appointment, if applicable. Discharge Plan Admission Admit Date/Time: 12/19/21 15:59 Primary Reason for Your Visit: Severe constipation Attending Provider: Owen Thurman Primary Care Provider: Maritza De Luna Consulting Providers: Terry Tavarez ; Owen Thurman Discharge Orders/Prescriptions Prescriptions: Continued multivitamin tablet 0.5 tab PO BID RF: 0 Lactobacillus acidophilus [Acidophilus] capsule 100 mg PO BID RF: 0 bilberry 100 mg capsule 100 mg PO DAILY RF: 0 amlodipine 5 mg tablet 2.5 mg PO BID RF: 0 cholecalciferol (vitamin D3) 25 mcg (1,000 unit) Tablet 25 mcg PO SUMOWEFR RF: 0 glucosamine-methylsulfonylmeth 1,500-500 mg/30 mL Liquid 60 ml PO DAILY RF: 0 calcium 600 mg Capsule 600 mg PO DAILY RF: 0 Prolia 60 mg/mL Syringe 60 mg SUBCUT UD RF: 0 biotin 1,000 mcg Tablet,Chewable 2,000 mcg PO DAILY RF: 0 Held omega-3 fatty acids Capsule 500 mg PO BID RF: 0 Hold Instructions: Resume on 12/27/21. Referrals / Follow Up: Maritza De Luna MD [Primary Care Provider] - Disposition Disposition (needs filled in before D/C Order can be placed): Home, Self Care
[2021-12-20 14:52] VITALS: BP 130/73; PULSE 68; RESP 16; TEMP 36.1; O2SAT 99
== END 2021-12-20 15:25 | disposition home or self-care (01) ==
LOC: ED 16:06 → MS3 16:22
PROVIDERS: Surgery; Admitting Provider Surgery; Emergency Provider Emergency Medicine; PCP Internal Medicine; Visit Provider Internal Medicine
DX: K56.600 Partial intestinal obstruction, unspecified as to cause (principal); I10 Essential (primary) hypertension; K58.9 Irritable bowel syndrome, unspecified; Z79.899 Other long term (current) drug therapy; M81.0 Age-related osteoporosis without current pathological fracture
CPT/HCPCS: 36415; 74018; 74019; 74176; 74177; 80048; 80053; 81001; 83605; 83690; 85025; 94640; 96361; 96365; 99218; 99285; J7120; Q9967; A4216; G0378; J3490

== ENCOUNTER 2021-12-24 05:31 | Day surgery (SDC) | payer MEDICARE, SELFPAY ==
[2021-12-24] VITALS (15 sets, daily range): BP systolic 111–140; BP diastolic 63–100; PULSE 58–70; RESP 16–18; TEMP 36.1–36.8; O2SAT 95–100
[2021-12-24] MEDS: Lactated Ringers 1,000 ML 15 ML IV (05:40)
--- NOTE | 2021-12-24 05:47 | HP.PCM_ITS ---
HPI - General HPI Narrative KATHRIN BRAVO, is a 71 F who presents for colonoscopy to evaluate which I feel a severe constipation. The patient was recently hospitalized with a diagnosis of small bowel obstruction. She had significant amount of stool throughout what was felt to be the proximal colon. She resolved quickly with oral contrast. She returns now for planned endoscopic view I have reviewed her CT imaging and her presentation. Her presentation was concerning for severe right lower quadrant abdominal pain. As I review her imaging the overwhelming finding to my eyes is severe colonic constipation. I am underwhelmed by any significant small bowel dilatation. We will recheck abdominal x-rays and laboratory this morning. Hopefully be able to remove the NG tube. We will then be able to start a diet. The patient's previous complaints on her admission March 2021 was the ease with which she develops diarrhea. She did have diarrhea after her mini laparotomy and lysis of adhesions. That seemed to resolve and C. difficile was negative. Her most recent colonoscopy was 9 years ago. She has no family history of colon cancer or colon polyps. Pending her progress she might be a candidate for initiation of MiraLAX therapy. My current diagnosis is one of severe constipation rather than small bowel obstruction. Terry Tavarez M.D., F.A.C.S. [facility] Medical History (Updated 12/23/21 @ 11:33 by Kita Whaley) Abdominal pain Alcohol use Arthritis Belching Clavicle fracture Dietary restriction Easy bruising Hepatitis History of colitis History of echocardiogram History of stress test History of stress test HTN (hypertension) IBS (irritable bowel syndrome) Meckel diverticulum Non-smoker Osteopenia Home Medications Lactobacillus acidophilus 100 mg PO BID 09/26/17 [History Last Taken 03/23/21] multivitamin 0.5 tab PO BID 09/26/17 [History Last Taken 03/23/21] amlodipine 5 mg tablet 2.5 mg PO BID 08/19/20 [History Last Taken 03/23/21] bilberry 100 mg capsule 100 mg PO DAILY cap 08/19/20 [History Last Taken 03/23/21] cholecalciferol (vitamin D3) 25 mcg PO SUMOWEFR 03/24/21 [History Last Taken 03/22/21] Prolia 60 mg SUBCUT UD 12/19/21 [History Last Taken Unknown] biotin 2,000 mcg PO BID 12/19/21 [History Last Taken Unknown] calcium 600 mg PO DAILY 12/19/21 [History Last Taken Unknown] glucosamine-methylsulfonylmeth 60 ml PO DAILY 12/19/21 [History Last Taken Unknown] omega-3 fatty acids 500 mg PO BID 12/19/21 [History Last Taken 12/19/21] berberine-herbal comb no.18 1 cap PO DAILY 12/23/21 [History Last Taken 12/19/21] ibuprofen 400 mg PO Q6H PRN 12/23/21 [History Last Taken 12/17/21] Allergy/AdvReac Type Severity Reaction Status Date / Time propoxyphene [From Darvon] Allergy Mild unknown Verified 12/23/21 11:18 abaloparatide [From Tymlos] Allergy Other Verified 12/23/21 11:18 acetaminophen [From Vicodin] Allergy unknown Verified 12/23/21 11:18 hydrocodone [From Vicodin] Allergy unknown Verified 12/23/21 11:18 lactose Allergy Diarrhea Verified 12/24/21 05:53 mesalamine Allergy Rash Verified 12/23/21 11:18 nickel Allergy Other Verified 12/23/21 11:18 codeine AdvReac Intermediate Vomiting Verified 12/23/21 11:18 epinephrine AdvReac HEART RACES Verified 12/23/21 11:18 gluten AdvReac Diarrhea Verified 12/23/21 11:18 soy AdvReac Upset Verified 12/23/21 11:18 Stomach sulfasalazine AdvReac Other Verified 12/23/21 11:18 Family History Father Diabetes Hypertension Grandmother Diabetes Hypertension Brother Hypertension Mother COPD (chronic obstructive pulmonary disease) Chronic mental illness Surgical History (Updated 12/23/21 @ 11:33 by Kita Whaley) History of cholecystectomy History of esophagogastroduodenoscopy (EGD) History of tonsillectomy and adenoidectomy Hx of colonoscopy Hx of exploratory laparotomy S/P appendectomy Social History household members: spouse housing: house current occupational status: retired Smoking Status: Never smoker alcohol intake: current alcohol intake frequency: a few times a month substance use type: does not use frequency: 3-4 times per week seatbelt use: always do you feel safe at home: Yes ROS Constitutional Constitutional: Reports systems reviewed and no addt'l complaints, except as documented Cardiovascular Cardiovascular: Denies chest pain Respiratory/Chest Respiratory/Chest: Denies shortness of breath at rest Gastrointestinal Gastrointestinal: Denies abdominal pain, change in bowel habits, hematochezia or melena Physical Exam Const alert, oriented x3 and no apparent distress General Appearance: cooperative and comfortable Eyes General Eye: normal appearance of both eyes Neck General: normal visual inspection Chest inspection of chest normal Resp Effort and Inspection: able to speak in complete sentences and symmetric chest movement Auscultation: clear to auscultation bilaterally Cardio regular rate and regular rhythm GI soft to palpation, non-tender and non-distended Extremity no calf tenderness Neuro oriented x3 Psych thought process normal Assessment & Plan Assessment/Plan (1) Abdominal pain: QUALIFIERS: Abdominal location: right lower quadrant Qualified Code(s): R10.31 - Right lower quadrant pain (2) Constipation: QUALIFIERS: Constipation type: unspecified constipation type Qualified Code(s): K59.00 - Constipation, unspecified PLAN: Abdominal pain and severe constipation. Plan to proceed with endoscopic evaluation. Because of food intolerance and concern over celiac disease the patient is requesting an upper endoscopy be performed at the same setting. She is aware of technique, benefit, risk, alternatives. She is aware that a combined esophagogastroduodenoscopy the possible biopsy and colonoscopy with possible biopsy or polypectomy will be performed. She has had an opportuni ty to ask and have questions answered. She wonders whether a medicine supplement caused the constipation. She will discuss this with Dr. Maritza De Luna. Terry Tavarez M.D., F.A.C.S.
--- NOTE | 2021-12-24 06:30 | EGD_PTH ---
PATIENT: KATHRIN BRAVO LOC: EN U#:[id number] AGE/SX: 71/F ROOM: RE12/24/[address]: Dr. Terry Tavarez MD : 1950 BED: DIS: 12/24/2021 SPEC #: [id number] RECD: 12/24/21 12:28 STATUS: DAMIAN SHARAD #: [id number] JAVY: 12/24/21 06:[address]: Terry Tavarez DEPT: SURGICAL PATHOLOGY RECD BY: Trent Clemente ENTERED: 12/24/21 13:41 SP TYPE: EGD BIOPSY OTHR DR: Dr. Maritza De Luna MD Tissues: A - Duodenum, NOS B - Gastric mucous membrane C - Esophagus, NOS D - Esophagus, NOS E - COLON BIOPSY Procedures: Special Stain Group II Special Stain Group I Surgery Specimen Level IV GMS Stain (control) Alcian Blue/PAS (control) HEADER OPERATION: Colonoscopy, EGD ([place]) PRE-OP DIAGNOSIS: Abdominal pain, constipation TISSUE SUBMITTED: A ? Duodenum biopsy, B ? Antrum biopsy for H. pylori and path, C ? Distal esophagus biopsy, D ? Mid esophagus biopsy, E ? Random biopsy MICROSCOPIC DIAGNOSIS A. Duodenum, biopsy: Mild nonspecific chronic inflammation. B. Gastric antrum, biopsy: Chronic gastritis. Focal intestinal metaplasia. No evidence of dysplasia. See comment. C. Distal esophagus, biopsy: Fragments of squamous mucosa with focal acute inflammation. Focal changes of reflux. Negative for fungal organisms. See comment. D. Mid esophagus, biopsy: No pathologic change. E. Colon, random biopsy: No pathologic change. AM:lupe 12/27/2021 COMMENT B. The results of immunohistochemistry for Helicobacter pylori will be reported separately ([id number]). Alcian blue/PAS stain with matched control supports the above diagnosis. Immunohistochemistry ([id number]) for P53 and Ki-67 will be performed and results will be reported separately. C. GMS stain with matched control was used in the evaluation of this case. MICROSCOPIC DESCRIPTION Slides are reviewed. GROSS DESCRIPTION A - Received in fixative is one container labeled with the patient's name and designated duodenum biopsy. The specimen consists of multiple irregular fragments of light krishna soft tissue that in aggregate measure 0.8 x 0.2 x 0.1 cm. The specimen is totally submitted in one cassette. B - Received in fixative is one container labeled with the patient's name and designated antrum biopsy. The specimen consists of one irregular fragment of light krishna soft tissue that measures 0.4 x 0.3 x 0.1 cm. The specimen is totally submitted in one cassette. C - Received in fixative is one container labeled with the patient's name and designated distal esophagus biopsy. The specimen consists of one irregular fragment of light krishna soft tissue that measures 0.4 x 0.4 x 0.1 cm. The specimen is totally submitted in one cassette. D - Received in fixative is one container labeled with the patient's name and designated mid esophagus biopsy. The specimen consists of one irregular fragment of light krishna soft tissue that measures 0.7 x 0.4 x 0.1 cm. The specimen is totally submitted in one cassette. E - Received in fixative is one container labeled with the patient's name and designated random biopsy. The specimen consists of multiple irregular fragments of light krishna soft tissue that in aggregate measure 0.7 x 0.4 x 0.1 cm. The specimen is totally submitted in one cassette. / DARSHAN:lupe 12/24/2021 TC:3 CPT: 83007 x5, 52309, 29741
--- NOTE | 2021-12-24 06:30 | IMM_PTH ---
PATIENT: KATHRIN BRAVO LOC: EN U#:[id number] AGE/SX: 71/F ROOM: RE12/24/[address]: Dr. Terry Tavarez MD : 1950 BED: DIS: 12/24/2021 SPEC #: [id number] RECD: 12/24/21 13:09 STATUS: DAMIAN REJoseluis #: [id number] JAVY: 12/24/21 06:[address]: Terry Tavarez DEPT: IMMUNOHISTOCHEMISTRY RECD BY: Karin Art ENTERED: 12/24/21 13:09 SP TYPE: IMMUNO OTHR DR: Dr. Maritza De Luna MD Tissues: B - Stomach, NOS Procedures: H Pylori (initial) KI-67 (add) P53 (add) PHYSICIAN & INSTITUTION [place] [address] SPECIMEN INFORMATION: Tissue Source: B ? Antrum biopsy Clinical Info: Abdominal pain, constipation Specimen Number: [id number] CPT code: 50403, 59979 x2 METHODOLOGY: Deparaffinized sections of prefer/formalin-fixed tissue or PAP/DQ stained slides are incubated with monoclonal/polyclonal antibodies/oligonucleotide probes. Localization is made via biotin free immunoperoxidase method. Appropriate controls are performed and reacted as expected. Results on target cell population are indicated in the following table: RESULTS: ANTIBODY / CLONE RESULT Block B H Pylori (polyclonal) negative P53 (DO-7) negative Ki-67 (30-9) positive, low These tests were developed and their performance characteristics determined by [facility]. They may not have been cleared or approved by the U.S. Food and Drug Administration. The FDA has determined that such clearance or approval is not necessary. The above immunohistochemical/dualISH markers are ordered and reviewed by the pathologist. INTERPRETATION: B. Antrum, biopsy: Negative for Helicobacter pylori organisms. No evidence of dysplasia. AM:lupe 12/28/2021
--- NOTE | 2021-12-24 07:22 | OP.EGD_ITS ---
Patient Name: Noam Bustillo Procedure Date: 12/24/2021 6:07 AM Date of : 1950 Age: 71 Procedure: Upper GI endoscopy Indications: Epigastric abdominal pain Providers: Terry Tavarez MD Referring MD: Maritza De Luna Medicines: See the Anesthesia note for documentation of the administered medications Complications: No immediate complications. Procedure: Pre-Anesthesia Assessment: - Prior to the procedure, a History and Physical was performed, and patient medications and allergies were reviewed. The patient's tolerance of previous anesthesia was also reviewed. The risks and benefits of the procedure and the sedation options and risks were discussed with the patient. All questions were answered, and informed consent was obtained. Prior Anticoagulants: The patient has taken no previous anticoagulant or antiplatelet agents. ASA Grade Assessment: II - A patient with mild systemic disease. After reviewing the risks and benefits, the patient was deemed in satisfactory condition to undergo the procedure. After obtaining informed consent, the endoscope was passed under direct vision. Throughout the procedure, the patient's blood pressure, pulse, and oxygen saturations were monitored continuously. The gastroscope was introduced through the mouth, and advanced to the second part of duodenum. The upper GI endoscopy was accomplished without difficulty. The patient tolerated the procedure well. Scope In: 6:41:57 AM Scope Out: 6:47:24 AM Total Procedure Duration Time 0 hours 5 minutes 27 seconds Findings: The middle third of the esophagus was normal. Biopsies were taken with a cold forceps for histology. A 1 cm hiatal hernia was present. Biopsies were taken with a cold forceps for histology. Diffuse mildly erythematous mucosa without bleeding was found in the gastric antrum. Biopsies were taken with a cold forceps for histology. The examined duodenum was normal. Biopsies were taken with a cold forceps for histology. Impression: - Normal middle third of esophagus. Biopsied. - 1 cm hiatal hernia. Biopsied. - Erythematous mucosa in the antrum. Biopsied. - Normal examined duodenum. Biopsied. Recommendation: - Discharge patient to home. - Resume previous diet. - Continue present medications. - Await pathology results. - Telephone my office for pathology results in 1 week. Procedure Code(s): --- Professional --- 12728, Esophagogastroduodenoscopy, flexible, transoral; with biopsy, single or multiple Diagnosis Code(s): --- Professional --- K44.9, Diaphragmatic hernia without obstruction or gangrene K31.89, Other diseases of stomach and duodenum R10.13, Epigastric pain CPT copyright 2017 [employer]. All rights reserved. The codes documented in this report are preliminary and upon staff assistant review may be revised to meet current compliance requirements. Terry Tavarez MD 12/24/2021 7:21:41 AM This report has been signed electronically. Number of Addenda: 0 Note Initiated On: 12/24/2021 6:07 AM
--- NOTE | 2021-12-24 07:22 | OP.CCLET_ITS ---
12/24/2021 Maritza De Luna Re : Upper GI endoscopy procedure for Noam Bustillo Dear Annamarie This procedure was performed on Friday, December 24, 2021. My impressions and recommendations are as follows: Impressions : - Normal middle third of esophagus. Biopsied. - 1 cm hiatal hernia. Biopsied. - Erythematous mucosa in the antrum. Biopsied. - Normal examined duodenum. Biopsied. Recommendations : - Discharge patient to home. - Resume previous diet. - Continue present medications. - Await pathology results. - Telephone my office for pathology results in 1 week. My findings are described in the full procedure note, which is enclosed. If I can be of further assistance, please feel free to contact me at Doctor phone number(s): Work: . Sincerely, Terry Tavarez MD 12/24/2021 7:21:41 AM This report has been signed electronically.
--- NOTE | 2021-12-24 07:28 | OP.CCLET_ITS ---
12/24/2021 Maritza De Luna Re : Colonoscopy procedure for Noam Zuñiga Annamarie This procedure was performed on Friday, December 24, 2021. My impressions and recommendations are as follows: Impressions : - Hemorrhoids found on perianal exam. - Diverticulosis in the sigmoid colon. - Redundant colon. - Biopsies were taken with a cold forceps from the entire colon for evaluation of microscopic colitis. Very redundant colon folding after acutely at hepatic flexure consistent with patients c/o pain in this area. Recommendations : - Perform an air contrast barium enema in 1 day. - No repeat colonoscopy due to current age (66 years or older). - Continue present medications. Office follow up next week please My findings are described in the full procedure note, which is enclosed. If I can be of further assistance, please feel free to contact me at Doctor phone number(s): Work: . Sincerely, Terry Tavarez MD 12/24/2021 7:27:47 AM This report has been signed electronically.
--- NOTE | 2021-12-24 07:28 | OP.COLON_ITS ---
Patient Name: Noam Bustillo Procedure Date: 12/24/2021 6:49 AM Date of : 1950 Age: 71 Procedure: Colonoscopy Indications: Abnormal CT of the GI tract Providers: Terry Tavarez MD Referring MD: Maritza De Luna Medicines: See the Anesthesia note for documentation of the administered medications Patient Profile: Last Colonoscopy: 10 years ago. Complications: No immediate complications. Procedure: Pre-Anesthesia Assessment: - Prior to the procedure, a History and Physical was performed, and patient medications and allergies were reviewed. The patient's tolerance of previous anesthesia was also reviewed. The risks and benefits of the procedure and the sedation options and risks were discussed with the patient. All questions were answered, and informed consent was obtained. Prior Anticoagulants: The patient has taken no previous anticoagulant or antiplatelet agents. ASA Grade Assessment: II - A patient with mild systemic disease. After reviewing the risks and benefits, the patient was deemed in satisfactory condition to undergo the procedure. After I obtained informed consent, the scope was passed under direct vision. Throughout the procedure, the patient's blood pressure, pulse, and oxygen saturations were monitored continuously. The Colonoscope was introduced through the anus and advanced to the hepatic flexure. The colonoscopy was extremely difficult due to a tortuous colon. Successful completion of the procedure was aided by applying abdominal pressure. The patient tolerated the procedure well. The quality of the bowel preparation was good. Scope In: 6:51:27 AM Scope Out: 7:17:40 AM Total Procedure Duration Time 0 hours 26 minutes 13 seconds Findings: Hemorrhoids were found on perianal exam. Multiple diverticula were found in the sigmoid colon. The colon (entire examined portion) was significantly redundant. Advancing the scope required using manual pressure and applying abdominal pressure. Biopsies for histology were taken with a cold forceps from the entire colon for evaluation of microscopic colitis. Impression: - Hemorrhoids found on perianal exam. - Diverticulosis in the sigmoid colon. - Redundant colon. - Biopsies were taken with a cold forceps from the entire colon for evaluation of microscopic colitis. Very redundant colon folding after acutely at hepatic flexure consistent with patients c/o pain in this area. Recommendation: - Perform an air contrast barium enema in 1 day. - No repeat colonoscopy due to current age (66 years or older). - Continue present medications. Office follow up next week please Procedure Code(s): --- Professional --- 51286, 52, Colonoscopy, flexible; with biopsy, single or multiple Diagnosis Code(s): --- Professional --- K64.9, Unspecified hemorrhoids K57.30, Diverticulosis of large intestine without perforation or abscess without bleeding R93.3, Abnormal findings on diagnostic imaging of other parts of digestive tract Q43.8, Other specified congenital malformations of intestine CPT copyright 2017 [employer]. All rights reserved. The codes documented in this report are preliminary and upon miner operator review may be revised to meet current compliance requirements. Terry Tavarez MD 12/24/2021 7:27:47 AM This report has been signed electronically. Number of Addenda: 0 Note Initiated On: 12/24/2021 6:49 AM
== END 2021-12-24 23:59 | disposition home or self-care (01) ==
LOC: EN 05:34 → AC 05:34
PROVIDERS: PCP Internal Medicine; Referring Provider Internal Medicine; Visit Provider Surgery
PROC: 0DJD8ZZ Inspection of Lower Intestinal Tract, Via Natural or Artificial Opening Endoscopic (ICD-10-PCS; CPT 45378; principal; 2021-12-24 06:25)
DX: K57.30 Diverticulosis of large intestine without perforation or abscess without bleeding (principal); K29.50 Unspecified chronic gastritis without bleeding; K21.00 Gastro-esophageal reflux disease with esophagitis, without bleeding; R10.31 Right lower quadrant pain; K59.00 Constipation, unspecified; K44.9 Diaphragmatic hernia without obstruction or gangrene; Q43.8 Other specified congenital malformations of intestine; I10 Essential (primary) hypertension; R10.13 Epigastric pain; K64.9 Unspecified hemorrhoids; Z79.899 Other long term (current) drug therapy
CPT/HCPCS: 45380; 43239; 88305; 88312; 88313; 88341; 88342; J7120

== ENCOUNTER 2021-12-27 07:47 | Outpatient (CLI) | payer MEDICARE, SELFPAY ==
--- NOTE | 2021-12-27 08:22 | RAD_ITS ---
INDICATION: INCOMPLETE COLONOSCOPY EXAMINATION/TECHNIQUE: Single contrast Barium enema was performed. Total Fluoroscopic Time: 0.45 AND number of Fluoroscopic Images: 35 OR Radiation dosage index: COMPARISON: CT abdomen and pelvis with contrast from 12/19/2021 FINDINGS: Clinical Quality Manager abdomen demonstrates nonobstructive bowel gas pattern. Surgical sutures in the abdomen from prior bowel anastomosis. No other abnormal radiopaque foreign bodies. There is significant redundancy of the bowel. Contrast appears to reach the cecum. There appears to be a 3 cm segment of circumferential mild luminal narrowing in the presumed descending colon just distal to the cecum. There are a few scattered colonic diverticula. RAD/Barium Enema w/Air Contrast IMPRESSION: Assessment is limited by patient''s bowel redundancy as well as history of colonic resection which limits assessment of the normal bowel anatomy. There is an apparent 3 cm segment of circumferential mild luminal narrowing in the presumed descending colon just distal to the cecum. Differential considerations include narrowing at prior anastomotic site given patient''s surgical history, stricture, or mass. Electronically Signed: Osman Rojas, at 13:40 EDT ,
== END 2021-12-27 23:59 | disposition home or self-care (01) ==
LOC: RAD 07:49
PROVIDERS: PCP Internal Medicine; Referring Provider Surgery; Visit Provider Surgery
DX: K56.600 Partial intestinal obstruction, unspecified as to cause (principal); R10.9 Unspecified abdominal pain
CPT/HCPCS: 74280

== ENCOUNTER 2022-02-04 09:30 | Outpatient (RCR) | payer MEDICARE, SELFPAY ==
[2021-03-25 09:58] VITALS: BMI 22.0
--- NOTE | 2021-05-31 08:45 | HP.PTEVAL_ITS ---
Patient's Visit Information KATHRIN BRAVO is a 70 year old F referred to Physical Therapy by YAMILET ALMEIDA with a diagnosis of L shoulder ORIF clavicle nonunion. Date of Evaluation: 05/31/21 Physical Therapist: Marshall Meredith DPT - Visit Plan Frequency: 1-2x /Week Duration: 6 Weeks Plan: Pt. is completing phase I and II stretching programs, also phase I strengthening per protocol. Start to phase in phase II as tolerated. Work on end range of motion AAROM and AROM. Cont to progress deltoid and RTC strengthening. - Subjective Pt. 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 Pt. initially had a clavicle fracture 5 years ago or so with ORIF, was removed due to swelling then had subsequent re fracture. She went a few years and was having on and off pain. She ultimately had another ORIF. Pt. arrives today with good tolerance and minimal to no pain in L UE. She does report some hypomobility in her shoulder, but is overall doing well. She is back to some gym activities mostly lower body, but has started phase I and II stretching program and phase I strengthening. Pt. reports no major issues with exercises at this point in time, but was questioning on how to progress. Pt. is not having any pain at clavicle and no noticeable swelling noted. She is an avid cyclist and likes to work out in local gym. Pt. would like to get back to these activities as soon as possible. I talked to her about not rushing, but giving her arm time to heal. Pt. reports understanding. No N/T in her LUE, no sharp pains. She does have some soreness in her lat region. - Pain L shoulder Pain Intensity (Out of 10): 1 Pain Intensity Range: 0, 2 L lat region Pain Intensity (Out of 10): 1 Pain Intensity Range: 0, 3 - Objective POSTURE: pt. has normal posture. Pt. has normal shoulder heights. Pt. has no shelf deformity of L clavicle. Pt. has no swelling in L clavicle region. PALPATION: pt. has mild tenderness with L UT and L latissimus. Pt. incision looks good. NEURO: normal throughout, normal sensation, normal DTR of BUEs. ROM: R shoulder full ROM without increase in symptoms. L shoulder: flexion 165deg, abd 160deg, functional ER C5, functional IR T10. MMT: Pt. has 4-/5 throughout LUE. - Balance/Special Test Scores Quick DASH Score: 36.3625 - Goals Goal 1:: LTG: pt. to be I with HEP for L shoulder strengthening and ROM. Goal Time Frame: 2-4 Weeks Goal 2:: LTG: Pt. to have full L shoulder AROM without increase in symptoms. Goal Time Frame: 2-4 Weeks Goal 3:: LTG: Pt. to have full 5/5 strength throughout LUE. Goal Time Frame: 4-6 Weeks Goal 4:: LTG: Pt. to resume all gym exercises without increase in symptoms. Goal Time Frame: 4-6 Weeks Goal 5:: STG: Pt. to sleep throughout the night without increase in symptoms. Goal Time Frame: 2-4 Weeks - Rehabilitation Potential Physical Therapy Diagnosis: Pt. 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 Pt. is overall doing well. She has marked hypomobility and weakness and would benefit from PT to work on these limitations. Rehabilitation Potential: Excellent - Anticipated Interventions Patient/Client Instruction: Educate patient on: Condition, Plan of Care, Risk Factors, Benefits of Fitness Program For the Purpose of:: To improve decision making, To facilitate caregiver knowledge, To improve self management, To prevent re-injury, To improve ability to perform tasks related to life management Therapeutic Exercise to Include: Strength training, Power training, Body mechanics, Postural training, Flexibilty training, Passive ROM, Active ROM, Scapular Strength/Stabilization For the Purpose of:: To decrease pain, To decrease swelling/inflammation, To increase ROM, To improve nutrient delivery to tissue, To increase oxygenation perfusion, To improve muscle performance and motor function, To improve ability of physical actions for home/community/work/leisure, To decrease soft tissue restriction, To increase flexibility/ROM Thank you for the opportunity to evaluate your patient. For Medicare and Medicare HMO plans, please review the plan of care and approve it. It will need to be FAXED BACK to us at [phone] for Medicare purposes. For Medicare only, by signing this I certify the plan of care. Please let me know if there are questions or concerns regarding this plan of care. Physician Satish eisenberg: Date:
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
--- NOTE | 2021-12-27 08:59 | HP.PTREVAL ---
YAMILET ALMEIDA, It has been my pleasure to treat KATHRIN BRAVO over the last 8 visits for L shoulder ORIF clavicle nonunion. Please see the progress note below for an update on the physical therapy plan of care! Subjective: Pt. is overall doing well. She did have a thoracic MRI with good results. She is having some thoracic scapular pain, but no clavicle pain. Objective/Function: Pt. has great ROM, she complains of tightness at end ranges, but has full passive and active ROM. Pt. has symmetrical strength as well. Overall she id getting stronger and going great. She does have some scapular/thoracic pain, but un able to elicit or effect today. She is doing great with her exercises and is progressing as expected. 5/5 strength throughout, except abd 4+/5, ER 5-/5. Pt. to work on these two muscle groups for the next 4 weeks. Pt. consents. Plan Plan: I talked to her about DC, she would like to try another 4 weeks I and recheck. If she is doing well then I will DC. Balance/Gait/Functional tests - Balance/Special Test Scores Quick DASH Score: 9.0900 Goals Goal 1:: LTG: pt. to be I with HEP for L shoulder strengthening and ROM. Goal Time Frame: 2-4 Weeks Goal Progress: Goal Met Goal 2:: LTG: Pt. to have full L shoulder AROM without increase in symptoms. Goal Time Frame: 2-4 Weeks Goal Progress: Goal Met Goal 3:: LTG: Pt. to have full 5/5 strength throughout LUE. Goal Time Frame: 4-6 Weeks Goal Progress: Progressing Goal 4:: LTG: Pt. to resume all gym exercises without increase in symptoms. Goal Time Frame: 4-6 Weeks Goal Progress: Goal Met Goal 5:: STG: Pt. to sleep throughout the night without increase in symptoms. Goal Time Frame: 2-4 Weeks Goal Progress: Goal Met Goal 6:: LTG: pt. to complete all biking and recreational activities without limitations. Goal Time Frame: 2-4 Weeks Goal Progress: Progressing Anticipated Interventions Patient/Client Instruction: Educate patient on: Condition, Plan of Care, Risk Factors, Benefits of Fitness Program For the Purpose of:: To improve decision making, To facilitate caregiver knowledge, To improve self management, To prevent re-injury, To improve ability to perform tasks related to life management Therapeutic Exercise to Include: Strength training, Power training, Body mechanics, Postural training, Flexibilty training, Passive ROM, Active ROM, Scapular Strength/Stabilization For the Purpose of:: To decrease pain, To decrease swelling/inflammation, To increase ROM, To improve nutrient delivery to tissue, To increase oxygenation perfusion, To improve muscle performance and motor function, To improve ability of physical actions for home/community/work/leisure, To decrease soft tissue restriction, To increase flexibility/ROM Please do not hesitate to contact me at [phone] by phone or if you have questions or concerns regarding this new plan of care! Sincerely, MABLE VerdinT
== END 2022-02-04 19:00 | disposition home or self-care (01) ==
LOC: PT 09:30
PROVIDERS: PCP Internal Medicine
DX: S42.002D Fracture of unspecified part of left clavicle, subsequent encounter for fracture with routine healing (principal)
CPT/HCPCS: 97110; 97161; 97164

== ENCOUNTER → 2022-08-05 | Outpatient (CLI) | payer MEDICARE, SELFPAY ==
--- NOTE | 2022-08-05 14:51 | BI_ITS ---
MAMMOGRAPHY - BILATERAL SCREENING 3-D TOMOSYNTHESIS REASON FOR EXAM: Female, 71 years old. Routine screening PERTINENT HISTORY: No significant family history. TECHNIQUE: 2-D mammograms and 3-D Tomosynthesis of the breast (s) were performed. CAD was performed. COMPARISON: 07/19/2021 FINDINGS: The breast composition is heterogeneously dense that can obscure small breast masses. Scattered benign calcifications are seen. No dense spiculated masses or suspicious microcalcifications are identified. No architectural distortion is identified. There is no skin thickening or retraction. There has been no significant change since the prior study. BI/SCRN MAMM (CAD)W/RICHMOND BILAT IMPRESSION: No mammographic signs of malignancy. Routine yearly mammograms recommended. ASSESSMENT CATEGORY: BIRADS Category 2: Benign. A letter regarding these results will be sent to the patient by the facility within 30 days. FOLLOW UP RECOMMENDATION: Yearly follow up mammogram recommended. (A) Approximately 10% of breast cancers are not detected by mammography. A normal mammogram should not delay biopsy of a clinically suspicious abnormality. Electronically Signed: Ankit Wilkins MD at 15:35 EDT ,
== END | disposition home or self-care (01) ==
LOC: OPBI 14:49
PROVIDERS: PCP Internal Medicine; Referring Provider Internal Medicine; Visit Provider Internal Medicine
DX: Z12.31 Encounter for screening mammogram for malignant neoplasm of breast (principal)
CPT/HCPCS: 77063; 77067

== ENCOUNTER 2022-08-09 16:00 | Outpatient (RCR) | payer MEDICARE, SELFPAY ==
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
--- NOTE | 2022-05-18 11:16 | HP.PTREVAL_ITS ---
Dr. Maritza De Luna MD, It has been my pleasure to treat KATHRIN BRAVO over the last 3 visits for neck pain, shoulder pain. Please see the progress note below for an update on the physical therapy plan of care! Subjective: Pt. reports being able to go on her bike ride with good results. She was doing upwards of 50-60 miles a day with a rest day in between. She reports that her shoulder did very well with these rides. She has been taking tylenol with better tolerance. She was able to work on this AM without issues today. Objective/Function: Pt. is overall doing much better. Pt. reports tolerating biking much better during her trip. She has been sleeping well. I talked to her about adding her strength exercises again. She is to focus on eccentric biceps and continue with the rest of shoulder strengthening exercises. She has 5-/5 of her anterior and posterior deltoid. Serratus anterior 4/5. Plan Plan: Start with mid trap, posterior deltoid strengthening. DN to UT, levator scapulae, mid trap. I am not sure what is the bump at her deltoid region, appears like a lipoma, but unsure. Balance/Gait/Functional tests - Balance/Special Test Scores Quick DASH Score: 15.9075 Goals Goal 1:: LTG: Pt. to be I with HEP. Goal Time Frame: 2-4 Weeks Goal Progress: Progressing Goal 2:: LTG: Pt. to have increased strength of posterior deltoid and mid trap to 5/5. Goal Time Frame: 4-6 Weeks Goal Progress: Progressing Goal 3:: LTG: pt. to be able to cycle up to 30 miles without increase in symptoms. Goal Time Frame: 4-6 Weeks Goal Progress: Goal Met Goal 4:: LTG: Pt. to complete all gym exercises without increase in symptoms. Goal Time Frame: 4-6 Weeks Goal Progress: Progressing Anticipated Interventions Patient/Client Instruction: Educate patient on: Condition, Plan of Care, Risk Factors, Benefits of Fitness Program For the Purpose of:: To foster healthy habits, To improve decision making, To facilitate caregiver knowledge, To improve self management, To prevent re- injury, To improve ability to perform tasks related to life management Therapeutic Exercise to Include: Strength training, Coordination, Postural training, Passive ROM, Active ROM, Scapular Strength/Stabilization For the Purpose of:: To decrease pain, To decrease swelling/inflammation, To increase ROM, To improve nutrient delivery to tissue, To increase oxygenation perfusion, To improve muscle performance and motor function Manual Therapy Techniques to Include: Mobilization, Functional dry needling, Soft tissue mobilization For the Purpose of:: To decrease pain, To decrease swelling/inflammation, To increase ROM, To improve nutrient delivery to tissue Please do not hesitate to contact me at [phone] by phone or if you have questions or concerns regarding this new plan of care! Sincerely, MABLE VerdinT
== END 2022-08-09 19:00 | disposition home or self-care (01) ==
LOC: PT 16:00
PROVIDERS: PCP Internal Medicine; Referring Provider Internal Medicine; Visit Provider Internal Medicine
DX: M47.812 Spondylosis without myelopathy or radiculopathy, cervical region
CPT/HCPCS: 97110; 97140; 97161

== ENCOUNTER 2022-10-04 09:29 | Outpatient (RCR) | payer MEDICARE, SELFPAY | END 2022-10-04 19:00 | disposition home or self-care (01) | LOC: PT 09:29 | PROVIDERS: PCP Internal Medicine; Referring Provider Internal Medicine; Visit Provider Internal Medicine | DX: M25.512 Pain in left shoulder (principal); M54.9 Dorsalgia, unspecified; M47.812 Spondylosis without myelopathy or radiculopathy, cervical region ==

== ENCOUNTER → 2023-08-09 | Outpatient (CLI) | payer MEDICARE, SELFPAY ==
--- NOTE | 2023-08-09 10:23 | BI_ITS ---
MAMMOGRAPHY - BILATERAL SCREENING REASON FOR EXAM: Female, 72 years old. Routine annual screening examination. PERTINENT HISTORY: Non-contributory. TECHNIQUE: Digital bilateral breast richmond (3D mammographic acquisition) in the CC and MLO projections. 2-D mediolateral oblique (MLO) and craniocaudad (CC) views of both breasts were obtained. CAD: Full Field Digital Mammography with Computer Added Detection was performed. COMPARISON: Comparison is made with prior study dated August 05, 2022 and July 19, 2021. FINDINGS: Breast Composition: The breasts are extremely dense, which lowers the sensitivity of mammography. There are no dominant masses or suspicious calcifications. Stable small benign-appearing bilateral axillary lymph nodes. No other significant abnormalities are identified. There has been no significant change since the prior study. BI/SCRN MAMM (CAD)W/RICHMOND BILAT IMPRESSION: Stable bilateral screening mammogram. Yearly follow-up mammogram recommended. (A) ASSESSMENT CATEGORY: BIRADS Category 2: Benign. A letter regarding these results will be sent to the patient by the facility within 30 days. Approximately 10% of breast cancers are not detected by mammography. A normal mammogram should not delay biopsy of a clinically suspicious abnormality. [id number] Electronically Signed: Ajay Lai MD at 11:29 EDT ,
== END | disposition home or self-care (01) ==
LOC: OPBI 10:22
PROVIDERS: PCP Internal Medicine; Referring Provider Internal Medicine; Visit Provider Internal Medicine
DX: Z12.31 Encounter for screening mammogram for malignant neoplasm of breast (principal)
CPT/HCPCS: 77063; 77067

== ENCOUNTER 2024-01-31 09:40 | Outpatient (RCR) | payer SELFPAY ==
--- NOTE | 2024-01-31 10:38 | HP.PT.NRP ---
Patient Information Patient Information: KATHRIN BRAVO was seen in my office for initial evaluation on . The following Plan of Care was established for this patient: Last Seen Last Seen: This patient was last seen in our office 01/31/24. Pertinent comments regarding their Physical therapy will appear below: Pt. was seen for her self pay DN. Pt. will be DC at this point in time. At this point I will be discontinuing this patient from physical therapy. I would be happy to see this patient again in the future if found appropriate by the physician. Thank you! Marshall Meredith, MABLET
== END 2024-01-31 13:05 | disposition home or self-care (01) ==
LOC: PT 09:40
PROVIDERS: PCP Internal Medicine
DX: Z00.00 Encounter for general adult medical examination without abnormal findings (principal)

== ENCOUNTER → 2024-02-20 | Outpatient (CLI) | payer MEDICARE, SELFPAY ==
[2024-02-20 13:44] LABS: Erythrocyte Sedimentation Rate 6 mm/hr (0-30)
[2024-02-20 13:46] LABS: Absolute Neutrophil Count 6.4 X10^3/uL (2.0-7.7); Basophil# 0.06 X10^3/uL; Basophil% 0.7 % (0-1); Eosinophil# 0.06 X10^3/uL; Eosinophils% 0.7 % (0-5); Hematocrit 41.4 % (37-47); Hemoglobin 13.8 g/dL (12.0-15.0); Lymphocyte % 16.5 % (19-41); Mean Corp Hgb Conc 33.3 g/dL (32-36); Mean Corpuscular Hgb 32.6 pg (27.0-32.0); Mean Corpuscular Volume 97.9 fL (81-99); Mean Platelet Vol. 11.4 fl (6.2-12.0); NRBC Flagged by Analyzer 0 % (0-5); Neutrophil # 6.44 X10^3/uL (2.7-7.7); Neutrophil % 70.7 % (47-70); Platelet Count 327 K/mm3 (150-450); RBC Distribution Width SD 50.2 fl (35.1-43.9); Red Blood Count 4.23 M/mm3 (4.2-5.4); White Blood Count 9.1 K/mm3 (4.4-11.0)
[2024-02-20 14:08] LABS: ALB/GLOB Ratio 1.3 RATIO (0.9-2.4); AST(SGOT) 28 U/L (15-37); Alanine Aminotransfer ALT/SGPT 25 U/L (13-56); Albumin, Serum 4.4 g/dL (3.2-5.0); Alkaline Phosphatase 58 U/L (45-117); Anion Gap 4 (5-15); BUN 18 mg/dL (7-18); BUN/Creat Ratio 23.3 RATIO (10-20); CRP < 2.90 mg/L (0.0-3.0); Calcium,Total 9.6 mg/dL (8.5-10.1); Chloride 103 mmol/L (98-107); Creatinine, Serum 0.77 mg/dL (0.55-1.02); EST Glomerular Filtration Rate 77 mL/min (>60); Est Glom Filt Rate - Afr Amer 94 mL/min (>60); Globulin 3.5 g/dL (2.2-4.2); Glucose 115 mg/dL (74-106); Potassium 4.3 mmol/L (3.5-5.1); Protein, Total 7.9 g/dL (6.4-8.2); Sodium Level 135 mmol/L (136-145); Troponin-I HS 8 pg/mL (3.0-54.0)
== END | disposition home or self-care (01) ==
LOC: LABSPEC 12:37
PROVIDERS: PCP Internal Medicine; Referring Provider Internal Medicine; Visit Provider Internal Medicine
DX: R55 Syncope and collapse (principal); R51.9 Headache, unspecified
CPT/HCPCS: 80053; 84484; 85025; 85652; 86140

== ENCOUNTER 2024-07-09 10:00 | Outpatient (RCR) | payer MEDICARE, SELFPAY ==
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
--- NOTE | 2024-07-10 09:52 | HP.PTDCSUM ---
Discharge Summary D/C summary: It has been my pleasure to treat KATHRIN BRAVO referred by YAMILET ALMEIDA, with the diagnosis of L clavicle fracture with ORIF DOS: 01/12/24 for a total of 3 visit(s). Discharge Date: Please see the following information for a summary of their discharge status. Subjective Subjective: Pt. reports overall doing well. Pt. reports no major issues. She has some issues with reaching overhead. She did mention some thumb issues recently. Pain L shoulder: Pain Intensity (Out of 10): 0 Objective Objective/Function: Pt. is overall doing very well. Her ROM is close to full without much issues. She does report some slight tightness with end range ABD, but otherwise normal. MMT: Pt. has full strength in BUEs without issues. She even has decreased L scapular winging noted. Goals Goal 1:: LTG: Pt. to be I with HEP for phase I and II stretching program. Goal 2:: STG: Pt. to have full PROM Of L shoulder without increase in symptoms. Goal 3:: LTG: Pt. to have full AROM of L shoulder without increase in symptoms. Goal 4:: STG: Pt. to have decreased reports of L UT and cervical muscle tension allowing for increased tolerance to all recreational activities. Plan Plan: Pt. is back to all activities without limitations. She does have some soreness with riding her bike for longer periods of time, but other rosales doig great. Pt. will be DC from PT at this point in time. D/C Information d/c sentence: If there are questions or concerns regarding this patient's physical therapy, please feel free to call me at [phone]. Thank you for the referral of this patient. Sincerely, Marshall Lynch Sipos, DPT Balance/Gait/Functional tests Balance/Special Test Scores Quick DASH Score: 40.9098
== END 2024-07-09 19:00 | disposition home or self-care (01) ==
LOC: PT 10:00
PROVIDERS: PCP Internal Medicine
DX: S42.022D Displaced fracture of shaft of left clavicle, subsequent encounter for fracture with routine healing (principal); Z98.890 Other specified postprocedural states; Z87.81 Personal history of (healed) traumatic fracture
CPT/HCPCS: 97110; 97161; 97530

== ENCOUNTER → 2024-09-20 | Outpatient (CLI) | payer MEDICARE, SELFPAY ==
--- NOTE | 2024-09-20 07:13 | BI_ITS ---
MAMMOGRAPHY - BILATERAL SCREENING REASON FOR EXAM: Female, 73 years old. Routine annual screening examination. PERTINENT HISTORY: Non-contributory. TECHNIQUE: Digital bilateral breast richmond (3D mammographic acquisition) in the CC and MLO projections. 2-D mediolateral oblique (MLO) and craniocaudad (CC) views of both breasts were obtained. CAD: Full Field Digital Mammography with Computer Added Detection was performed. COMPARISON: Comparison is made with prior study dated August 09, 2023 and August 05, 2022. FINDINGS: Breast Composition: The breasts are extremely dense, which lowers the sensitivity of mammography. There are no dominant masses or suspicious calcifications. Stable small benign-appearing bilateral axillary lymph nodes. No other significant abnormalities are identified. There has been no significant change since the prior study. BI/SCRN MAMM (CAD)W/RICHMOND BILAT IMPRESSION: Stable bilateral screening mammogram. Yearly follow-up mammogram recommended. (A) ASSESSMENT CATEGORY: BIRADS Category 2: Benign. A letter regarding these results will be sent to the patient by the facility within 30 days. Approximately 10% of breast cancers are not detected by mammography. A normal mammogram should not delay biopsy of a clinically suspicious abnormality. [id number] Electronically Signed: Ajay Lai MD at 8:54 EST ,
== END | disposition home or self-care (01) ==
LOC: OPBI 07:13
PROVIDERS: PCP Internal Medicine; Referring Provider Internal Medicine; Visit Provider Internal Medicine
DX: Z12.31 Encounter for screening mammogram for malignant neoplasm of breast (principal)
CPT/HCPCS: 77063; 77067

== ENCOUNTER 2024-11-04 10:00 | Outpatient (RCR) | payer MEDICARE, SELFPAY | END 2024-11-04 19:00 | disposition home or self-care (01) | LOC: PT 10:00 | PROVIDERS: PCP Internal Medicine | DX: M54.2 Cervicalgia (principal) ==

== ENCOUNTER → 2024-11-14 | Outpatient (CLI) | payer MEDICARE, SELFPAY ==
--- NOTE | 2024-11-14 15:51 | US_ITS ---
PROCEDURE: THYROID REASON FOR EXAM: Doctor palpated nodule. TECHNIQUE: Real-time grayscale and color-flow imaging was performed. Routine image documentation. COMPARISON: No relevant prior. FINDINGS: Right thyroid lobe measures 4.7 x 1.0 x 1.3 cm.. Left thyroid lobe measures 3.1 x 1.0 x 1.0 cm.. Isthmus thickness is0.3 cm.. Thyroid Size: Normal Background Echotexture: Heterogeneous. Hypervascular. Thyroid Nodules: Right: Inferior pole, cystic, 0.5 x 0.4 x 0.4 cm, rounded, anechoic, no calcifications, TR 1. Left: Superior pole, primarily cystic, 0.3 x 0.2 x 0.2 cm, rounded, anechoic, no calcifications, TR 1. Midpole, mixed cystic and solid, 0.6 x 0.7 x 0.5 cm, wider than tall, hypoechoic, no calcifications, TR 3. Inferior pole, solid, 0.6 x 0.5 x 0.3 cm, wider than tall, hyperechoic, no calcifications, TR 3. US/Thyroid IMPRESSION: 1. A benign TR 1 category micronodule in the right thyroid lobe. 2. Benign TR 1 category micronodule in the left superior pole. 3. TR 3 category micronodules in the left mid and inferior pole. No FNA warra nted. 4. Follow-up ultrasound recommended in 12 months. Reading Location: [facility]
== END | disposition home or self-care (01) ==
LOC: US 15:50
PROVIDERS: PCP Internal Medicine; Referring Provider Internal Medicine; Visit Provider Internal Medicine
DX: E04.1 Nontoxic single thyroid nodule (principal)
CPT/HCPCS: 76536

== ENCOUNTER → 2025-01-30 | Outpatient (CLI) | payer MEDICARE, SELFPAY | END | disposition home or self-care (01) | LOC: PSN 14:01 | PROVIDERS: PCP Internal Medicine; Referring Provider Internal Medicine; Visit Provider Internal Medicine | DX: R55 Syncope and collapse (principal) | CPT/HCPCS: 93225; 93226 ==

== ENCOUNTER → 2025-05-19 | Outpatient (CLI) | payer MEDICARE, SELFPAY ==
[2025-05-19 10:55] LABS: Hematocrit 40.5 % (37-47); Hemoglobin 13.1 g/dL (12.0-15.0); Mean Corp Hgb Conc 32.3 g/dL (32-36); Mean Corpuscular Volume 98.5 fL (81-99); Mean Platelet Vol. 11.4 fl (6.2-12.0); Platelet Count 329 K/mm3 (150-450); RBC Distribution Width CV 13.9 % (11.6-14.6); RBC Distribution Width SD 50.6 fl (35.1-43.9); Red Blood Count 4.11 M/mm3 (4.2-5.4); White Blood Count 4.7 K/mm3 (4.4-11.0)
[2025-05-19 11:40] LABS: AST(SGOT) 27 U/L (<=31); Alanine Aminotransfer ALT/SGPT 20 U/L (<=34); Albumin, Serum 4.5 g/dL (3.4-4.8); Alkaline Phosphatase 58 U/L (35-104); Anion Gap 11 (5-15); BUN 14 mg/dL (4-19); BUN/Creat Ratio 17.2 RATIO (10-20); Calcium,Total 9.5 mg/dL (7.6-11.0); Carbon Dioxide 23.1 mmol/L (21.0-32.0); Chloride 104 mmol/L (98-108); Globulin 2.8 g/dL (2.2-4.2); Glucose 90 mg/dL (70-99); Magnesium 2.4 mg/dL (1.5-2.2); Potassium 4.2 mmol/L (3.3-5.1); Vitamin B12 1036 pg/mL (180-914)
[2025-05-21 13:08] LABS: Vitamin D 1,25-Dihydroxy 69.5 pg/mL (24.8-81.5)
[2025-05-22 19:07] LABS: Folate, Hemolysate Test 569.0 ng/mL (Not Estab.); Folate, RBC (Hct) Test 40.0 % (34.0-46.6); Folates, RBC Test 1423 ng/mL (>498); Vitamin B1, Thiamine 116.0 nmol/L (66.5-200.0)
== END | disposition home or self-care (01) ==
LOC: MTLAB 08:02
PROVIDERS: PCP Internal Medicine; Referring Provider Psychiatry & Neurology Neurology; Visit Provider Psychiatry & Neurology Neurology
DX: R55 Syncope and collapse (principal); G50.0 Trigeminal neuralgia; G62.9 Polyneuropathy, unspecified; E04.1 Nontoxic single thyroid nodule
CPT/HCPCS: 36415; 80053; 82607; 82652; 82747; 83735; 84425; 84439; 84443; 85014; 85027; 85652

== ENCOUNTER → 2025-06-30 | Outpatient (CLI) | payer MEDICARE, SELFPAY ==
--- NOTE | 2025-06-30 06:54 | MRI_ITS ---
PROCEDURE: SPINE CERVICAL (ROUTINE) 06/30/2025 REASON FOR EXAM: NECK PAIN TECHNIQUE: Procedure Code: MRISPC Modality: MR Procedure: SPINE CERVICAL (ROUTINE) Multiplanar and multisequence images were obtained without IV contrast administration. COMPARISON: Cervical spine x-ray 05/28/2025. FINDINGS: Vertebrae: Cervical vertebral body heights are preserved. Bone marrow signal is unremarkable. Alignment: Normal. No spondylolisthesis. Spinal Cord: Cervical spinal cord is of normal size and signal intensities. Structures at the foramen magnum are unremarkable. C2-3: Facet joint arthropathy. No foraminal or canal stenosis. C3-4: Facet joints arthropathy. Disc osteophyte complex. Mild canal stenosis. No significant foraminal stenosis. C4-5: Disc desiccation. Disc osteophyte complex. Facet joint arthropathy. Mild bilateral foramina stenosis. Mild canal stenosis. C5-6: Disc desiccation. Disc osteophyte complex. Facet joint arthropathy. Moderate canal stenosis. Mild bilateral foramina stenosis. C6-7: Disc desiccation. Disc osteophyte complex. Uncovertebral hypertrophy. Facet joints arthropathy. Moderate bilateral foramina stenosis. Moderate canal stenosis. C7-T1: No significant foraminal or canal stenosis. MRI/Spine Cervical (Routine) IMPRESSION: Degenerate changes, predominantly at C5-C6 and C6-C7 where there is moderate ca nal stenosis. Moderate bilateral foramina stenosis at C6-C7. Reading Location: [facility]
--- NOTE | 2025-06-30 06:54 | MRI_ITS ---
PROCEDURE: MRI BRAIN W/WO CONTRAST 06/30/2025 REASON FOR EXAM: TRIGEMINAL NEURALGIA TECHNIQUE: Procedure Code: MRIBRWW Modality: MR Procedure: BRAIN W/WO CONTRAST Multiplanar and multisequential MRI of the brain was performed without and with IV gadolinium based contrast. CONTRAST: Clariscan VOLUME: 10 mL COMPARISON: Brain MRI 11/09/2020. FINDINGS: Mild age-appropriate generalized brain parenchymal volume loss. Normal ventricular caliber. No regions of abnormal restricted diffusion, susceptibility, or other significant parenchymal signal alteration. Minimal leukoaraiosis in the supratentorial white matter. No intracranial mass lesion, extra-axial collection or pathologic enhancement. Specifically, no mass or abnormal enhancement involving the cisternal trigeminal nerves or the visualized adjacent structures to explain trigeminal neuralgia. Preserved major vascular flow voids. Grossly unremarkable orbits. Well-aerated paranasal sinuses and bilateral mastoid air cells. MRI/Brain W/WO Contrast IMPRESSION: No acute intracranial abnormality. No explanation for patient's symptoms. Reading Location: [facility]
--- NOTE | 2025-06-30 06:54 | MRI_ITS ---
PROCEDURE: SPINE THORACIC (ROUTINE) 06/30/2025 REASON FOR EXAM: DORSALGIA TECHNIQUE: Procedure Code: MRISPT Modality: MR Procedure: SPINE THORACIC (ROUTINE) Multiplanar and multisequence images were obtained. FINDINGS: Vertebrae: The vertebral bodies are preserved. Disc levels: Disc desiccation without significant foraminal or canal stenosis. Alignment: Normal alignment. Spinal Cord: Unremarkable. MRI/Spine Thoracic (Routine) IMPRESSION: Unremarkable MRI of the thoracic spine without spinal cord abnormality or signi ficant canal or foramina stenosis. Reading Location: [facility]
== END | disposition home or self-care (01) ==
LOC: OPMRI 07:07
PROVIDERS: PCP Internal Medicine; Referring Provider Psychiatry & Neurology Neurology; Visit Provider Psychiatry & Neurology Neurology
DX: M54.2 Cervicalgia (principal); G50.0 Trigeminal neuralgia
CPT/HCPCS: 70553; 72141; 72146; A9575

== ENCOUNTER → 2025-07-07 | Outpatient (CLI) | payer MEDICARE, SELFPAY ==
--- OUTSIDE RECORDS SUMMARY | 2025-07-07 07:23 | XMS RPT_ITS | CCD ---
Author Organization [facility] Care Team Providers Care Home Appliance Installer Name Role Phone Otis Reaves Primary Care Provider OTIS REAVES Primary Care Unavailable [employer] [facility] Consulting Eliza ABHIJEET Willis Admitting Unavailable OTIS BHAKAT Attending Unavailable Bessie De Luna Unavailable JONNY Harrison Unavailable Unavailable Unavailable Unavailable Eric Freitas Unavailable Annamaria Mejia Unavailable Unavailable Janine Serrano Unavailable Unavailable Unavailable Unavailable Idalmis [place] Unavailable Unavailable Otis Reaves Primary Care Provider Bessie De Luna MD Unavailable JONNY Harrison LPN Unavailable Unavailable Unavailable Unavailable Hernando HUERTA Katlyn Unavailable UnavailMaxine Seo LPN Unavailable Unavailable Dr. Howard Pastrana Unavailable [phone] Jillian Rojas Unavailable Wm HUERTA, Katlyn Unavailable Unavailable Dr. Bessie De Luna Primary Care Provider MD Keiko Lee Emergency Provider Dr. Alexis Lewis Other Provider [phone] Eldon Archer Other Provider Dr. Tang Vasquez Other Provider Otis Fuller Other Provider Unavailable Erasto CODING CLERK, CODING CLERK-C Tmay Other Provider Dr. Jillian Wells Attending Provider Dr. Jillian Wells Other Provider Dr. Owen Thurman Other Provider Unavailable AMMON Davison Other Provider UnavailDr. Vicki Ortega Other Provider Dr. Kapil Laboy Other Provider Dr. Marika Long Other Provider MD Claudio Quesada Other Provider ELPIDIO Andrew Other Provider Unavailable Dr. Sneha Loyd Other Provider Dr. Cheng Roger Other Provider Unavailable Dr. Jair Clark Other Provider Dr. Leti Yee Other Provider Dr. Anuel Montenegro Other Provider Dr. Manfred Bob Other Provider Dr. Tano Jerry Other Provider Dr. Tracy Medrano Other Provider Dr. Dorothy Larson Admit Provider Dr. Dorothy Larson Referring Provider Dr. Dorothy Larson Other Provider Dr. Owen Thurman Referring Provider Unavailable Dr. Jacquelyn Tavarez Attending Provider Dr. Jacquelyn Tavarez Other Provider Dr. Owen Thurman Attending Provider Unavailable Dr. Bessie De Luna Referring Provider Dr. Jacquelyn Tavarez Referring Provider Bessie De Luna MD Primary Care Provider Jacquelyn Tavarez MD Unavailable Francisco FITZPATRICK, Baldomero Camarena Unavailable Bessie De Luna MD Unavailable Joan Davis LPN Unavailable Unavailable Bessie De Luna MD Primary Care Provider Jacquelyn Tavarez MD Unavailable Bessie De Luna MD Primary Care Provider Abner BE, Denise Unavailable Unavailable Manchak FAMILY MEDICINE PHYSICIAN, Janine Unavailable Unavailable [place] FAMILY MEDICINE PHYSICIAN, Kayela Unavailable Unavailable Gravius FAMILY MEDICINE PHYSICIAN, Sonya Unavailable Unavailable Bessie De Luna MD Primary Care Provider [phone] Jacquelyn Tavarez MD Unavailable Rojas, Jillian Unavailable Bessie De Luna MD Primary Care Provider Rojas, Jillian Unavailable BESSIE DE LUNA Primary Care Unavailable RICCHETTI, JILLIAN T Attending Unavailable RICCHETTI, JILLIAN T Admitting Unavailable Bessie De Luna MD Attending Unavailable Bessie De Luna MD Consulting Unavailable Bessie De Luna MD Primary Care Provider [phone] RICCHETTI, JILLIAN T Referring Unavailable BESSIE DE LUNA Primary Care Unavailable Bessie De Luna MD Primary Care Provider [phone] BESSIE DE LUNA Primary Care Unavailable RICCHETTI, JILLIAN T Referring Unavailable SKEBE, SASHA L Attending Unavailable BESSIE DE LUNA Primary Care Unavailable RICCHETTI, JILLIAN T Admitting Unavailable RICBLANCATTI, JILLIAN T Attending Unavailable BESSIE DE LUNA Primary Care Unavailable BESSIE DE LUNA Primary Care Unavailable SKEBE, SASHA L Referring Unavailable BESSIE DE LUNA Primary Care Unavailable SKEBE, SASHA L Referring Unavailable Bessie De Luna MD Primary Care Provider [phone] Dr. Bessie De Luna MD Primary Care Provider Referred, Self Attending Provider Unavailable Referred, Self Referring Provider Unavailable Dr. Bessie De Luna MD Attending Provider Dr. Bessie De Luna MD Referring Provider Bonezzi MD, Bessie M Primary Care Provider FILI WEN Referring Unavailable BONEZZI, BESSIE M Primary Care Unavailable SYSTEM, PROVIDER NOT IN Attending Unavaila ble FILI WEN Referring Unavailable BONEZZI, BESSIE M Primary Care Unavailable FILI WEN Attending Unavailable BONEZZI, BESSIE M Primary Care Unavailable SELF, SELF Referring Unavailable FILI WEN Referring Unavailable BONEZZI, BESSIE M Primary Care Unavailable FILI WEN Attending Unavailable BONEZZI, BESSIE M Primary Care Unavailable RICCHETTI, JILLIAN T Referring Unavailable RICCHETTI, JILLIAN T Attending Unavailable BONEZZI, BESSIE M Primary Care Unavailable BONEZZI, BESSIE M Primary Care Unavailable ASPEN YU Referring Unavailable Bonezzi , Dr. Salas Primary Care Provider [phone] Annamarie FITZPATRICK, Dr. Salas Attending Provider [phone] Annamarie FITZPATRICK, Dr. Salas Referring Provider [phone] Jennifer FITZPATRICK, Dr. Baird Attending Provider [phone] Ximena FITZPATRICK, Dr. Kohli Attending Provider Ximena FITZPATRICK, Dr. Kohli Referring Provider [phone] [phone] Graciela Terry Attending Provider [phone] Bonezzi, Bessie Primary Care Unavailable Bonezzi, Bessie Referring Unavailable Bonezzi, Bessie Attending Unavailable Bonezzi, Bessie Primary Care Unavailable Referred, Self Attending Unavailable Referred, Self Referring Unavailable Bonezzi, Bessie Primary Care Unavailable Bonezzi, Bessie Referring Unavailable Bonezzi, Bessie Attending Unavailable Bonezzi, Bessie Primary Care Unavailable Bonezzi, Bessie Referring Unavailable Bonezzi, Bessie Attending Unavailable Bonezzi, Bessie Primary Care Unavailable Bonezzi, Bessie Referring Unavailable Seun Bueno Attending Unavailable Bonezzi, Bessie Primary Care Unavailable Bonezzi, Bessie Referring Unavailable Graciela Ribera Attending Unavailable Bonezzi, Bessie Primary Care Unavailable Bonezzi, Bessie Referring Unavailable Oli Rodriguez Attending Unavailable Bonezzi, Bessie Primary Care Unavailable JenniferOli gallegos Attending Unavailable Dharmesh Rouse Attending Unavailable Bonezzi, Bessie Primary Care Unavailable Bonezzi, Bessie Referring Unavailable Bonezzi, Bessie Primary Care Unavailable Bonezzi, Bessie Referring Unavailable Bonezzi, Bessie Attending Unavailable Bonezzi, Bessie Primary Care Unavailable Baddour, Seun Referring Unavailable Baddour, Seun Attending Unavailable Bonezzi, Bessie Primary Care Unavailable Baddour, Seun Referring Unavailable Baddour, Seun Attending Unavailable Bonezzi, Bessie Primary Care Unavailable Bonezzi, Bessie Referring Unavailable Bonezzi, Bessie Attending Unavailable Bonezzi, Bessie Primary Care Unavailable SNEHA HATFIELD Referring Unavailable SNEHA HATFIELD Attending Unavailable Allergies Allergy Classification Reported Allergen(s) Allergy Type Date of Onset Reaction(s) Facility abaloparatide (10 sources) abaloparatide; Translations: [Tymlos *ENDOCRINE AND METABOLIC AGENTS - MISC.*] Drug Allergy [facility] Work Phone: Comment on above: heart racing and hyp otension fexofenadine / Pseudoephedrine (10 sources) fexofenadine / Pseudoephedrine; Translations: [Antihistamine & Nasal Deconges *COUGH/COLD/JOSE RGY*] Drug Allergy [facility]; [facility] Work Phone: Comment on above: low blood sugar nickel (10 sources) nickel; Translations: [Nickel] Drug Allergy [facility]; [facility] Work Phone: Comment on above: ?swelling Serotonin Reuptake Inhibitors (SSRIs) (20 sources) Citalopram; Translations: [CeleXA *ANTIDEPRESSANTS *] Drug Allergy [facility]; [facility] Work Phone: Comment on above: tachycardia diarrhea soy protein isolate (10 sources) soy protein isolate; Translations: [Soy *ALTERNATIVE MEDICINES*] Drug Allergy [facility]; [facility] Work Phone: Comment on above: and Gluten gastric d istress and blurred vision sulfaSALAzine (10 sources) sulfaSALAzine; Translations: [sulfaSALAzine *GASTROINTESTINA L AGENTS - MISC.*] Drug Allergy [facility]; [facility] Work Phone: Comment on above: rash Sulfonamides (antibiotic) (10 sources) Sulfonamides (Antibiotic); Translations: [Sulfa Drugs] Drug Allergy [facility]; [facility] Work Phone: Comment on above: rash (20 sources) Codeine; Translations: [CODEINE] Drug Allergy 12-08-19 17 Vomiting [facility] (20 sources) Soy protein; Translations: [SOY] Propensity to adverse reactions to drug 10-21-19 15 GI Upset [facility] (3 sources) Sulfonamides (Antibiotic); Translations: [SULFA (SULFONAMIDE ANTIBIOTICS)] Propensity to adverse reactions to drug 11-19-19 19 [facility] (16 sources) Wheat gluten extract; Translations: [GLUTEN] Drug Allergy 11-19-19 19 Diarrhea [facility] (20 sources) Citalopram; Translations: [CeleXA *ANTIDEPRESSANTS *] Drug Allergy [facility] Work Phone: Comment on above: tachycardia (20 sources) fexofenadine / Pseudoephedrine; Translations: [Antihistamine & Nasal Deconges *COUGH/COLD/JOSE RGY*] Drug Allergy [facility] Work Phone: Comment on above: low blood sugar (20 sources) Sertraline; Translations: [Zoloft *ANTIDEPRESSANTS *] Drug Allergy [facility] Work Phone: Comment on above: diarrhea (20 sources) soy protein isolate; Translations: [Soy *ALTERNATIVE MEDICINES*] Drug Allergy [facility] Work Phone: Comment on above: and Gluten gastric d istress and blurred vision (20 sources) sulfaSALAzine; Translations: [sulfaSALAzine *GASTROINTESTINA L AGENTS - MISC.*] Drug Allergy 04-08-20 13 Intolerance [facility] Work Phone: Comment on above: rash (20 sources) Sulfonamides (Antibiotic); Translations: [Sulfa Drugs] Allergy to substance (finding) [facility] Work Phone: Comment on above: rash (20 sources) Codeine/Codeine Derivatives; Translations: [Codeine/Codeine Derivatives] Allergy to substance (finding) [facility] Work Phone: Comment on above: vomiting (20 sources) Lactose *PHARMACEUTICAL ADJUVANTS*; Translations: [Lactose *PHARMACEUTICAL ADJUVANTS*] Allergy to drug (finding) [facility] Work Phone: Comment on above: gastric distress and blurred vision (20 sources) nickel; Translations: [Nickel] Drug Allergy 10-26-19 21 Swelling [facility]; [facility] Work Phone: Comment on above: ?swelling swelling (20 sources) abaloparatide; Translations: [Tymlos *ENDOCRINE AND METABOLIC AGENTS - MISC.*] Drug Allergy 02-20-20 21 Other: See Comments [facility]; [facility] Work Phone: Comment on above: heart racing and hyp otension (13 sources) Acetaminophen Drug Allergy 12-30-19 unknown [facility] Comment on above: nausea/vomiting (20 sources) EPINEPHrine; Translations: [EPINEPHRINE] Drug Allergy 12-30-19 22 Contraindicati on-[facility] (13 sources) HYDROcodone Drug Allergy 12-30-19 unknown [facility] Comment on above: nausea/vomiting (20 sources) Lactose; Translations: [LACTOSE] Drug Allergy 02-05-20 13 Diarrhea [facility] (13 sources) mesalamine Drug Allergy 12-30-19 22 Rash [facility] (13 sources) Propoxyphene Drug Allergy 12-30-19 unknown [facility] Comment on above: vomiting (20 sources) Acetaminophen / HYDROcodone; Translations: [HYDROCODONE-NORY TAMINOPHEN] Drug Allergy 07-31-20 12 GI Upset [facility] (20 sources) Gluten Flour; Translations: [GLUTEN FLOUR] Food Allergy 10-21-19 15 Diarrhea [facility] Work Phone: (1 source) Codeine Drug Allergy 06-02-20 [facility] Work Phone: (1 source) EPINEPHrine Drug Allergy 11-29-19 [facility] Work Phone: (1 source) House dust mite; Translations: [DUST MITES] allergy to substance 11-29-19 [facility] Work Phone: (1 source) Sulfacetamide Drug Allergy 06-02-20 [facility] Work Phone: (1 source) Wheat preparation; Translations: [WHEAT] Drug Allergy 06-02-20 [facility] Work Phone: (1 source) GENERAL ANESTHETIC drug allergy 11-29-19 [facility] Work Phone: (1 source) STINGING INSECTS; Translations: [STINGING INSECTS] allergy to substance 06-02-[address] [facility] Work Phone: (1 source) DAIRY; Translations: [DAIRY] food allergy 06-02-[address] [facility] Work Phone: (20 sources) fentaNYL; Translations: [FENTANYL] Drug Allergy 05-20-20 22 Vomiting [facility] (8 sources) EPINEPHrine Drug Allergy 10-04-20 21 [facility] (8 sources) Sulfonamides (Antibiotic) Propensity to adverse reactions to drug 12-08-19 17 [facility] (8 sources) Fentanyl And Related Propensity to adverse reactions to drug 06-15-20 22 [facility] (8 sources) Not Able To Determine Propensity to adverse reactions 12-08-19 17 [facility] (6 sources) sulfaSALAzine; Translations: [SULFASALAZINE] Drug Allergy 04-08-20 13 [facility] (6 sources) ABALOPARATIDE; Translations: [ABALOPARATIDE] Propensity to adverse reactions to drug (disorder) 02-20-20 21 [facility] (2 sources) valACYclovir Drug Allergy [facility]; [facility] Work Phone: Comment on above: hives (research show s can take famcyclovir) (20 sources) Ondansetron; Translations: [ONDANSETRON] Drug Allergy 12-12-19 24 Other: See Comments [facility] (18 sources) Morphinan opioid; Translations: [OPIOIDS - MORPHINE ANALOGUES] Drug Intolerance 01-11-20 24 Vomiting [facility] (1 source) Acetaminophen Drug Allergy 07-04-20 25 [facility] (1 source) Codeine Drug Allergy 07-04-20 [facility] (1 source) EPINEPHrine Drug Allergy 07-04-20 [facility] (1 source) Gluten Drug allergy (disorder) 07-04-20 [facility] (1 source) HYDROcodone Drug Allergy 07-04-20 [facility] (1 source) Lactose Drug Allergy 07-04-20 [facility] (1 source) mesalamine Drug Allergy 07-04-20 [facility] (1 source) Propoxyphene Drug Allergy 07-04-20 [facility] Medications Current Medications Medication Drug Class(es) Dates Sig (Normalized) Sig (Original) acetaminophen 325 mg oral tablet (20 sources) Start: 01-12-2024 take 2 tablets by mouth every six hours as needed acetaminophen (TYLENOL) 325 mg tablet Take 2 tablets by mouth every 6 hours as needed for pain. for pain. 30 tablet 01/12/2024 Active Start: 11-21-2018 End: 11-22-2018 take 1 tablet by mouth every six hours as needed acetaminophen (TYLENOL) tablet 975 mg Start: 11-21-2018 End: 12-01-2018 take 2 tablets by mouth every four hours as needed acetaminophen (TYLENOL) 325 MG tablet Take 2 (two) tablets (650 mg total) by mouth every 4 (four) hours as needed . 30 tablet 0 11/21/2018 12/01/2018 Active Start: 11-19-2018 End: 11-21-2018 take 1 tablet by mouth every four hours as needed 650 mg, Oral, Every 4 hours PRN, mild pain, fever 100.4 F or greater, headaches, Starting 11/19/18 at 2352 [] If ketorolac (TORADOL) is ordered and active, use it first for mild pain. Start: 11-19-2018 End: 11-19-2018 acetaminophen (TYLENOL) tabl et 975 mg Comment on above: Take 2 tablets by mo uth every 6 hours as needed for pain. for pain. amoxicillin 500 mg oral capsule (20 sources) Penicillin-class Antibacterial Start: 07-10-2024 amoxicillin (AMOXIL) 500 mg capsule 500 mg as needed. 07/10/2024 Active Start: 03-18-2020 take 0.5 tablet by m outh four times daily amoxicillin 875 MG tablet Take 0.5 tablets by mouth 4 times daily. 03/18/2020 Active Start: 03-16-2020 End: 04-23-2020 take 1 tablet by mouth three times daily Amoxicillin 500 MG Oral Tablet 1 (one) Tablet tid for 0 days Quantity: 30 {Tablet} Refills: 0 Ordered: 23-Apr-2020 Annamaria Mejia RN Start : 16-Mar-2020 End : 23-Apr-2020 Discontinued Comments: from dentist Comment on above: from dentist Berberine-Herbal Comb No.18 (7 sources) Start: 12-23-2021 take 1 capsule by mouth once daily Berberine-Herbal Comb No.18 Active 1 CAP PO DAILY December 23, 2021 12:18pm Start: 12-23-2021 take 1 capsule by mo uth once daily Berberine-Herbal Comb No.18 Active 1 CAP PO DAILY December 23, 2021 12:00am Start: 12-23-2021 take 1 capsule by mo uth once daily Berberine-Herbal Comb No.18 Active 1 CAP PO DAILY December 23, 2021 1:00am Bilberry (20 sources) Start: 08-19-2020 take 1 capsule by mo uth once daily Bilberry 100 mg capsule Active 100 mg PO DAILY August 19, 2020 12:48pm Start: 08-19-2020 take 100 mg by mouth once jl y Bilberry Active 100 MG PO DAILY August 19, 2020 11:48am Start: 08-19-2020 take 100 mg by mouth once jl y Bilberry Active 100 MG PO DAILY August 19, 2020 12:48pm Start: 06-02-2020 take 1 capsule by mo uth once daily BILBERRY CAPSULE 60 mg 60 mg 1 capsule by mouth once a day BILBERRY CAPSULE 60 mg 60 mg Jovita Young LPN Start: 09-26-2017 End: 08-19-2020 take 100 mg by mouth twice daily Bilberry Discontinued 100 MG PO TWICE A DAY September 26, 2017 5:16pm August 19, 2020 12:48pm Start: 09-26-2017 End: 08-19-2020 take 1 capsule by mouth twice daily Bilberry 100 mg capsule Discontinued 100 mg PO TWICE A DAY September 26, 2017 1:00am August 19, 2020 12:48pm Start: 09-26-2017 End: 08-19-2020 take 100 mg by mouth twice daily Bilberry Discontinued 100 MG PO TWICE A DAY September 26, 2017 12:00am August 19, 2020 11:48am Start: 09-26-2017 End: 08-19-2020 take 100 mg by mouth twice daily Bilberry Discontinued 100 MG PO TWICE A DAY September 26, 2017 1:00am August 19, 2020 12:48pm take 60 mg by mouth once daily B ILBERRY ORAL Take 60 mg by mouth once daily. Active Bilberry 60 MG C ap Indications: Senile osteoporosis , Nonspecific abnormal results of thyroid function study take by mouth.. Active Bilberry 60 MG C ap Indications: Senile osteoporosis , Nonspecific abnormal results of thyroid function study take by mouth.. 0 Active take 60 mg by mouth once daily B ILBERRY ORAL Take 60 mg by mouth once daily. 0 Active Comment on above: Take 60 mg by mouth once daily. biotin 1 mg chewable tablet (20 sources) Start: 12-19-2021 take 2 tablets by mouth twice daily Biotin 1,000 mcg Tablet,Chewable Active 2000 ug PO TWICE A DAY December 19, 2021 1:00am Start: 12-19-2021 take 2000 ug by mouth twice da jazlyn Biotin Active 2000 MCG PO TWICE A DAY December 19, 2021 1:00am BIOTIN PO Take b y mouth. gummy Active BIOTIN PO Take b y mouth. gummy 0 Active Calcium (13 sources) Phosphate Binder, Calcium Start: 12-19-2021 take 600 mg by mouth once daily Calcium Active 600 MG PO DAILY December 19, 2021 5:46pm TAKES LIQUID Start: 12-19-2021 take 1 capsule by mouth once d aily Calcium 600 mg Capsule Active 600 mg PO DAILY December 19, 2021 1:00am TAKES LIQUID Start: 12-19-2021 take 600 mg by mouth once jl y Calcium Active 600 MG PO DAILY December 19, 2021 12:00am TAKES LIQUID Start: 12-19-2021 take 600 mg by mouth once jl y Calcium Active 600 MG PO DAILY December 19, 2021 1:00am TAKES LIQUID Calcium-Magnesium (ILANA-MAG P O) (8 sources) Calcium-Magnesiu m (ILANA-MAG PO) Indications: Senile osteoporosis , Nonspecific abnormal results of thyroid function study Take by mouth. 2 tbsp daily Active Calcium-Magnesiu m (ILANA-MAG PO) Indications: Senile osteoporosis , Nonspecific abnormal results of thyroid function study Take by mouth. 2 tbsp daily 0 Active CALCIUM-MAGNESIUM ORAL (20 sources) take 1 [oz_av] by mo uth twice daily CALCIUM-MAGNESIUM ORAL Take 1 oz by mouth twice daily. Active take 1 [oz_av] by mouth twice da jazlyn CALCIUM-MAGNESIUM ORAL Take 1 oz by mouth twice daily. 0 Active Comment on above: Take 1 oz by mouth t wice daily. Chondroitin Sulfates / Glucosamine (8 sources) Glucosamine-Lino droitin (GLUCOSAMINE CHONDR COMPLEX PO) Indications: Senile osteoporosis , Nonspecific abnormal results of thyroid function study take by mouth.. Active Glucosamine-Lino droitin (GLUCOSAMINE CHONDR COMPLEX PO) Indications: Senile osteoporosis , Nonspecific abnormal results of thyroid function study take by mouth.. 0 Active Compression stockings (10-20) (5 sources) Start: 05-06-2025 Compression stockings (10-20) Active 0 .ROUTE .MEDSUPPLY 2 0 May 06, 2025 12:00am Vasovagal syncope Syncope and collapse vasovagal syncope (ICD 10: R55) As directed cyclobenzaprine hydrochloride 10 mg oral tablet (20 sources) Muscle Relaxant Start: 05-28-2025 take 1 tablet by mouth at bedtime as needed Cyclobenzaprine 10 mg tablet Active 10 mg PO AT BEDTIME as needed May 28, 2025 12:00am Start: 10-01-2023 cyclobenzaprin e (FLEXERIL) 5 mg tablet Take 5 mg by mouth daily at bedtime. Takes half a tablet 10/01/2023 Active Start: 05-09-2023 End: 07-10-2023 take 1 tablet by mouth at bedtime as needed cyclobenzaprine 10 mg oral tablet uad Tablet at hs prn for 0 days Quantity: 90 {Tablet} Refills: 3 Ordered: 10-Jul-2023 Annamarie FITZPATRICK, Bessie Velez MD Start : 09-May-2023 End : 10-Jul-2023 Inactive Comments: Mail order. Start: 01-14-2022 take 1 tablet by pauline th at bedtime as needed Cyclobenzaprine HCl 10 MG Oral Tablet uad Tablet at hs prn for 0 days Quantity: 30 {Tablet} Refills: 2 Ordered: 14-Jan-2022 Annamarie FITZPATRICK, Bessie Velez MD Start : 14-Jan-2022 Active Start: 09-01-2020 End: 03-29-2021 Cyclobenzaprine HCl 10 MG Or al Tablet 1 (one) Tablet using 4 at nnight can use tid prn for 0 days Quantity: 30 {Tablet} Refills: 2 Ordered: 29-Mar-2021 Hunter HIDALGONJONNY Start : 01-Sep-2020 End : 29-Mar-2021 Inactive Start: 11-21-2018 End: 12-01-2018 take 1 tablet by mouth three times daily as needed for muscle spasms cyclobenzaprine (FLEXERIL) 5 MG tablet Take 1 (one) tablet (5 mg total) by mouth 3 (three) times a day as needed for muscle spasms . 30 tablet 0 11/21/2018 12/01/2018 Active Start: 11-19-2018 End: 11-22-2018 take 5 mg by mouth three times daily as needed for muscle spasms 5 mg, Oral, 3 times daily PRN, muscle spasms, Starting Mon11/19/18 at 2352 End: 01-11-2023 take 2.5 mg by mouth every eight hours as needed cyclobenzaprine (FLEXERIL) 5 mg tablet Take 2.5 mg by mouth three times daily as needed. 01/11/2023 Discontinued Comment on above: Take 2.5 mg by mouth three times daily as needed. Mail order. Take 5 mg by mouth d aily at bedtime. Takes half a tablet 1 ml denosumab 60 mg/ml prefilled syringe (20 sources) RANK Ligand Inhibitor Start: 04-02-2025 End: 04-02-2025 denosumab (PROLIA) injection 60 mg Start: 04-02-2025 End: 04-02-2025 inject 1 dose by subcutaneous injection once 60 mg, Subcutaneous, ONCE (IN CLINIC), 1 dose, On Mon04/02/25 at 1515, Prior to administration, allow to warm to room temperature in original container. Start: 09-09-2024 End: 09-09-2024 denosumab (PROLIA) injection 60 mg Start: 09-09-2024 End: 09-09-2024 inject 1 dose by subcutaneous injection once 60 mg, Subcutaneous, ONCE (IN CLINIC), 1 dose, On Mon09/09/24 at 1645, Prior to administration, allow to warm to room temperature in original container. Start: 01-09-2024 End: 01-09-2024 denosumab (PROLIA) injection 60 mg Start: 01-09-2024 End: 01-09-2024 inject 1 dose by subcutaneous injection once 60 mg, Subcutaneous, ONCE (IN CLINIC), 1 dose, On Mon01/09/24 at 1345, Prior to administration, allow to warm to room temperature in original container. Start: 06-15-2022 End: 06-15-2022 denosumab (PROLIA) injection 60 mg Start: 06-02-2020 End: 05-06-2025 Denosumab (Prolia) 60 mg/mL Syringe Discontinued 60 mg SC DIRECTED December 19, 2021 1:00am May 06, 2025 8:54am EVERY 6 MONTHS Prolia 60 MG/ML Subcutaneous Solution Prefilled Syringe twice a year (60 MG/ML) Active Comment on above: 1 mg. Inject 60 mg subcuta neously one time only. Every 6 months, last dose 01/09/24 docusate sodium 100 mg oral capsule (5 sources) Start: 12-12-19 End: 01-11-20 take 1 capsule by mouth twice daily docusate sodium (COLACE) 100 mg capsule Take 1 capsule by mouth two times a day. 60 capsule 0 12/12/2023 01/11/2024 Active Comment on above: Take 1 capsule by mo [facility] two times a day. 0.4 ml enoxaparin sodium 100 mg/ml prefilled syringe (2 sources) Low Molecular Weight Heparin Start: 11-21-19 End: 12-22-19 inject 0.4 mL by subcutaneous injection once daily enoxaparin (LOVENOX) 40 mg/0.4 mL Syrg Inject 0.4 mL (40 mg total) under the skin daily . 12 mL 0 11/21/2018 12/21/2018 Active Start: 11-20-2018 End: 11-22-2018 inject 30 mg by subcutaneous injection twice daily 30 mg, Subcutaneous, 2 times daily, First dose on Mon11/20/18 at 0800 Administer in abdomen unless otherwise directed by prescriber. Notify physician if patient refuses. gabapentin 100 mg oral capsule (4 sources) Anti-epileptic Agent Start: 07-23-2025 take 1 capsule by mouth twice daily Gabapentin 100 mg capsule Active 100 mg PO TWICE A DAY 60 3 May 07, 2025 12:00am glucosamine HCl/chondroitin aguiar (GLUCOSAMINE-CHOND ROITIN ORAL) (20 sources) take 2 [oz_av] by mouth once daily glucosamine HCl/chondroitin aguiar (GLUCOSAMINE-LINO DROITIN ORAL) Take 2 oz by mouth once daily. Active take 2 [oz_av] by mo uth once daily glucosamine HCl/chondroitin aguiar (GLUCOSAMINE-CHONDROITIN ORAL) Take 2 oz by mouth once daily. 0 Active Comment on above: Take 2 oz by mouth o nce daily. Glucosamine-Methylsu lfonylmeth (7 sources) Start: 12-19-2021 take 1 mL by mouth once daily Glucosamine-Methyl sulfonylmeth Active 60 ML PO DAILY December 19, 2021 5:44pm Start: 12-19-2021 take 1 mL by mouth once daily Glucosamine-Methylsulfonylmeth Active 60 ML PO DAILY December 19, 2021 12:00am Start: 12-19-2021 take 1 mL by mouth once daily Glucosamine-Methylsulfonylmeth Active 60 ML PO DAILY December 19, 2021 1:00am Glucosamine-Methylsulfonylme th 1,500-500 mg/30 mL Liquid (6 sources) Start: 12-19-2021 Glucosamine-Methylsulfonylme th 1,500-500 mg/30 mL Liquid Active 60 mL PO DAILY December 19, 2021 1:00am Lactobacillus (8 sources) Lactobacillus (A CIDOPHILUS PO) Indications: Senile osteoporosis , Nonspecific abnormal results of thyroid function study take by mouth.. Active Lactobacillus (A CIDOPHILUS PO) Indications: Senile osteoporosis , Nonspecific abnormal results of thyroid function study take by mouth.. 0 Active lactobacillus acidophilus 100 mg oral capsule (20 sources) Start: 09-26-2017 take 1 capsule by mouth twice daily Lactobacillus Acidophilus (Acidophilus) capsule Active 100 mg PO TWICE A DAY September 26, 2017 1:00am immune health take 1 mg by mouth once daily Ac idophilus 100 MG Oral Capsule daily (100 MG) Active take 1 mg by mouth once daily Ac idophilus 100 MG Oral Capsule daily (100 MG) Active take 1 capsule by mouth once simon ly ACIDOPHILUS CAPS 1 capsule by mouth once a day lactobacillus acidophilus [id number] Jovita Young LPN lactobacillus acidophilus [id number] unt / pectin 10 mg oral capsule (20 sources) Start: 10-21-2014 take 1 capsule by mouth twice daily acidophilus-pectin, citrus 100 million cell-10 mg cap Take 1 capsule by mouth twice daily. 0 10/21/2014 Active Comment on above: Take 1 capsule by mo uth twice daily. linseed oil 1000 mg oral capsule (8 sources) Flaxseed, Linsee d, (FLAXSEED OIL) 1000 MG Cap Indications: Senile osteoporosis , Nonspecific abnormal results of thyroid function study Take by mouth. Active MEDICATION, NON-DATABASE (20 sources) MEDICATION, NON- DATABASE Flax seed oil Active take 2 tablets by mouth once simon ly MEDICATION, NON-DATABASE Take 2 tablets by mouth once daily. Super EFF (Supplement) Active MEDICATION, NON- DATABASE Flax seed oil 0 Active take 2 tablets by mouth once simon ly MEDICATION, NON-DATABASE Take 2 tablets by mouth once daily. Super EFF (Supplement) 0 Active take 2 tablets by mouth once simon ly MEDICATION, NON-DATABASE Take 2 tablets by mouth once daily. Super EFF 0 Active Comment on above: Take 2 tablets by mo uth once daily. Super EFF Take 2 tablets by mo uth once daily. Super EFF (Supplement) Flax seed oil Multiple Vitamin (MULTIVITAMIN+ PO) (8 sources) take 1 tablet by mouth twice daily Multiple Vitamin (MULTIVITAMIN+ PO) Indications: Senile osteoporosis , Nonspecific abnormal results of thyroid function study Take by mouth. PLAN ONE 1/2 tab BID Active take 1 tablet by mouth twice simon ly Multiple Vitamin (MULTIVITAMIN+ PO) Indications: Senile osteoporosis , Nonspecific abnormal results of thyroid function study Take by mouth. PLAN ONE 1/2 tab BID 0 Active multivitamin tablet (20 sources) take 0.5 tablet by m outh twice daily multivitamin tablet Take 0.5 tablets by mouth two times a day. Active take 0.5 tablet by mouth twice d aily multivitamin tablet Take 0.5 tablets by mouth two times a day. 0 Active take 0.5 tablet by mouth twice d aily multivitamin tablet Take 0.5 tablets by mouth twice daily. 0 Active Comment on above: Take 0.5 tablets by mouth twice daily. Take 0.5 tablets by mouth two times a day. 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 Apply 0.5 inch strip with q-tip in each nostril in the morning and in the evening for 5 days before surgery. You do not need to apply the morning of surgery. 22 g 0 01/04/2024 01/09/2024 Active Start: 08-01-2023 mupirocin 2 % topical ointment 1 application 2 times per day for 0 days Quantity: 30 {Gram} Refills: 0 Ordered: 01-Aug-2023 Joan Davis LPN Start : 01-Aug-2023 Active Comment on above: Use in the nose two times a day for 5 days. Apply 0.5 inch strip with q-tip in each nostril in the morning and in the evening for 5 days before surgery. You do not need to apply the morning of surgery. [place]-3 Fatty Acids (7 sources) Start: 12-19-2021 take 500 mg by mouth twice daily [place]-3 Fatty Acids Active 500 MG PO TWICE A DAY December 19, 2021 5:51pm Start: 12-19-2021 take 500 mg by mouth twice simon ly [place]-3 Fatty Acids Active 500 MG PO TWICE A DAY December 19, 2021 12:00am Start: 12-19-2021 take 500 mg by mouth twice simon ly [place]-3 Fatty Acids Active 500 MG PO TWICE A DAY December 19, 2021 1:00am [place]-3 Fatty Acids (FISH OIL PO) (8 sources) take 1 capsule by mo [facility] once daily [place]-3 Fatty Acids (FISH OIL PO) Take by mouth. 1 cap po QD Active take 1 capsule by mouth once simon ly [place]-3 Fatty Acids (FISH OIL PO) Take by mouth. 1 cap po QD 0 Active [place]-3 Fatty Acids Capsule (6 sources) Start: 12-19-2021 take 1 capsule by mouth twice daily [place]-3 Fatty Acids Capsule Active 500 mg PO TWICE A DAY December 19, 2021 1:00am On Hold: Resume on 12/27/21. Completed/Discontinued Medications Medication Drug Class(es) Dates Sig (Normalized) Sig (Original) alendronic acid 70 mg oral tablet (13 sources) Bisphosphonate Start: 09-26-2017 End: 08-19-2020 take 1 tablet by mouth every week Alendronate (Fosamax) 70 mg tablet Discontinued 70 mg PO EVERY WEEK September 26, 2017 1:00am August 19, 2020 12:47pm amLODIPine 5 mg oral tablet (20 sources) Dihydropyridine Calcium Channel Jessica Start: 12-01-2020 End: 01-11-2023 take 2.5 mg by mouth three times daily amLODIPine (NORVASC) 5 mg tablet Take 2.5 mg by mouth three times daily. 12/01/2020 01/11/2023 Discontinued Start: 12-01-2020 take 1 tablet by pauline th in the morning amLODIPine Besylate 5 MG Oral Tablet 1 (one) Tablet 1/2 in am for 0 days Quantity: 90 {Tablet} Refills: 3 Ordered: 01-Dec-2020 Annamarie FITZPATRICK, Bessie Velez MD Start : 01-Dec-2020 Active Comments: Mail order. Start: 10-27-2020 amLODIPine Bes ylate 5 MG Oral Tablet 1 (one) Tablet 1/2 in am and 1/2 at supper and 1/2 at bedtime (pt likes taking spread out) for 0 days Quantity: 90 {Tablet} Refills: 3 Ordered: 27-Oct-2020 Annamarie FITZPATRICK, Bessie Velez MD Start : 27-Oct-2020 Active Comments: Mail order. Start: 08-19-2020 take 2.5 mg by mouth twice simon ly Amlodipine Active 2.5 MG PO TWICE A DAY August 19, 2020 1:00am Start: 02-26-2020 take 0.5 tablet by m outh once daily amLODIPine 5 MG tablet Take 0.5 tablets by mouth daily. 02/26/2020 Active Start: 02-25-2020 take 2.5 mg by mouth twice simon ly Amlodipine 5 mg tablet Active 2.5 mg PO TWICE A DAY August 19, 2020 1:00am bp Start: 02-25-2020 take 0.5 tablet by m outh twice daily amLODIPine 5 MG tablet Take 0.5 tablets by mouth 2 times daily. 02/26/2020 Active Comment on above: Mail order. Take 2.5 mg by mouth three times daily. Take 2.5 mg by mouth twice daily. AmLODIPine & Diet Manage Prod 2.5 MG Miscellaneous (20 sources) AmLODIPine & t Manage Prod 2.5 MG Miscellaneous (2.5 MG) Inactive aspirin 81 mg delayed release oral tablet (20 sources) Platelet Aggregation Inhibitor, Nonsteroidal Anti-inflammatory Drug Start: 01-12-20 End: 07-11-20 take 1 tablet by mouth twice daily aspirin, enteric coated (ASPIRIN, ENTERIC COATED) 81 mg EC tablet Take 1 tablet by mouth two times a day for 14 days. 28 tablet 01/12/2024 07/11/2024 Discontinued (Course of therapy completed) Start: 01-23-2023 End: 11-27-2023 take 1 tablet by mouth twice daily aspirin, enteric coated (ECOTRIN LOW STRENGTH) 81 mg EC tablet Take 1 tablet by mouth twice daily for 14 days. 28 tablet 0 01/23/2023 11/27/2023 Discontinued Start: 02-18-2021 End: 01-11-2023 take 1 tablet by mouth twice daily aspirin, enteric coated (ECOTRIN LOW STRENGTH) 81 mg EC tablet Take 1 tablet by mouth twice daily for 14 days. 28 tablet 02/18/2021 01/11/2023 Discontinued Comment on above: Take 1 tablet by pauline th twice daily for 14 days. Take 1 tablet by pauline th two times a day for 14 days. azithromycin 250 mg oral tablet (18 sources) Macrolide Antimicrobial Start: 02-11-20 End: 02-16-20 take 1 tablet by mouth once Zithromax Z-Wilman 250 mg oral tablet 1 (one) Packet use as directed per instructions in pack for 5 days Quantity: 1 {Packet} Refills: 0 Ordered: 10-Feb-2023 Maxine Jimenez LPN Start : 10-Feb-2023 End : 15-Feb-2023 Inactive Comments: Dispense 1 pack, use as directed on package Start: 12-28-2022 End: 01-02-2023 take 1 tablet by mouth once Zithromax Z-Wilman 250 mg ora l tablet 1 (one) Packet use as directed per instructions in pack for 5 days Quantity: 1 {Packet} Refills: 0 Ordered: 28-Dec-2022 Susan DENNISJoan Start : 28-Dec-2022 End : 02-Jan-2023 Inactive Comments: Dispense 1 pack, use as directed on package Comment on above: Dispense 1 pack, use as directed on package baclofen 10 mg oral tablet (11 sources) gamma-Aminobutyric Acid-ergic Agonist End: 01-11-2023 baclofen (LIORESAL) 10 mg tablet Take 5 mg by mouth as needed. 0 01/11/2023 Discontinued Comment on above: Take 5 mg by mouth a s needed. Berberine (1 source) take 1 capsule by mouth twice daily berberine 1 capsule by mouth twice a day berberine Jovita Young LPN Berberine-Herbal Comb No.18 Capsule (6 sources) Start: 12-23-2021 End: 05-06-2025 take 1 capsule by mouth once daily Berberine-Herbal Comb No.18 Capsule Discontinued 1 NMA PO DAILY December 23, 2021 1:00am May 06, 2025 8:53am Start: 12-23-2021 take 1 capsule by [facility] once daily Berberine-Herbal Comb No.18 Capsule Active 1 NMA PO DAILY December 23, 2021 1:00am biotin 2500 mcg gummie (1 source) take 1 tablet by mouth twice daily biotin 2500 mcg gummie 1 tablet by mouth twice a day biotin 2500 mcg gummie Jovita Young LPN bisacodyl 5 mg delayed release oral tablet (4 sources) Stimulant Laxative Start: 01-27-20 End: 05-16-20 Bisacodyl (DULCOLAX) 5 mg tab Indications: Partial intestinal obstruction, unspecified cause (HCC) Use as directed for Miralax / Gatorade Bowel Prep Kit 4 tablet 01/26/2022 05/16/2022 Discontinued Comment on above: Use as directed for Miralax / Gatorade Bowel Prep Kit [place] (1 source) take 2 mg by mouth once daily boron 2 mg 2 mg by mouth once a day as directed boron 2 mg 2 mg Jovita Young LPN Calcium & Magnesium Carbonates 520-400 MG/5ML Oral Liquid (20 sources) Calcium & Magnes ium Carbonates 520-400 MG/5ML Oral Liquid takes daily (520-400 MG/5ML) Active calcium gluconate 500 mg oral tablet (1 source) take 500 mg by mouth once daily Calcium gluconate liquid 500 mg 500 mg by mouth once a day as directed Calcium gluconate liquid 500 mg 500 mg Jovita Young LPN cholecalciferol 0.025 mg oral tablet (20 sources) Vitamin D Start: 03-24-20 End: 05-06-20 25 Cholecalciferol (Vitamin D3) 25 mcg (1,000 unit) Tablet Discontinued 25 ug PO SUMOWEFR March 24, 2021 12:00am May 06, 2025 8:53am cholecalciferol 50 MCG (2000 UT) capsule Take by mouth. 4 times weekly Active Vitamin D (Celine calciferol) 25 MCG (1000 UT) Oral Capsule 1/2 bid (25 MCG (1000 UT)) Active cholecalciferol, vitamin D3, (VITAMIN D3 ORAL) (20 sources) End: 11-27-2023 take 1000 [IU] by mouth four times weekly cholecalciferol, vitamin D3, (VITAMIN D3 ORAL) Take 1,000 Units by mouth four times a week. 11/27/2023 Discontinued End: 11-27-2023 take 1000 [IU] by mouth four times weekly cholecalciferol, vitamin D3, (VITAMIN D3 ORAL) Take 1,000 Units by mouth four times a week. 0 11/27/2023 Discontinued take 1000 [IU] by mo uth four times weekly cholecalciferol, vitamin D3, (VITAMIN D3 ORAL) Take 1,000 Units by mouth four times a week. 0 Active Comment on above: Take 1,000 Units by mouth four times a week. chondroitin (1 source) chondroitin by mouth once a day as directed chondroitin Jovita Young LPN ciprofloxacin 500 mg oral tablet (20 sources) Quinolone Antimicrobial Start: 06-03-20 End: 06-08-20 take 1 tablet by mouth twice daily Cipro 500 MG Oral Tablet 1 (one) Tablet bid for 5 days Quantity: 10 {Tablet} Refills: 0 Ordered: 03-Jun-2022 [facility], Sonya Start : 03-Jun-2022 End : 08-Jun-2022 Inactive desoximetasone 2.5 mg/ml topical cream (20 sources) Corticosteroid Start: 06-11-20 End: 06-21-20 21 Topicort 0.25 % External Cream 1/2 (one half) Application as needed for 10 days Quantity: 1 {Each} Refills: 0 Ordered: 11-Jun-2021 Michelle Yi Start : 11-Jun-2021 End : 21-Jun-2021 Inactive Comments: Medication taken as needed. tube Comment on above: Medication taken as needed. tube dicyclomine hydrochloride 20 mg oral tablet (20 sources) Anticholinergic Start: 07-07-20 20 End: 07-07-20 take 1 tablet by mouth three times daily as needed Dicyclomine HCl 20 MG Oral Tablet 1 (one) Tablet tid prn for 0 days Quantity: 20 {Tablet} Refills: 0 Ordered: 07-Jul-2020 Annamarie FITZPATRICK, Bessie Velez MD Start : 07-Jul-2020 End : 07-Jul-2020 Discontinued Start: 06-09-2020 take 1 tablet by pauline th three times daily as needed Dicyclomine HCl 20 MG Oral Tablet 1 (one) Tablet tid prn for 0 days Quantity: 20 {Tablet} Refills: 0 Ordered: 09-Jun-2020 Annamarie FITZPATRICK, Bessie Velez MD Start : 09-Jun-2020 Active docosahexaenoic acid 120 mg / eicosapentaenoic acid 180 mg oral capsule (8 sources) take 1 mg by mouth twice daily Fish Oil 1000 MG Oral Capsule two times daily (1000 MG) Active DOCOSAHEXANOIC ACID/EPA (FISH OIL ORAL) (17 sources) End: 01-11-2023 take 1000 mg by mouth twice daily DOCOSAHEXANOIC ACID/EPA (FISH OIL ORAL) Take 1,000 mg by mouth twice daily. 01/11/2023 Discontinued End: 01-11-2023 take 1000 mg by mouth twice daily DOCOSAHEXANOIC ACID/EPA (FISH OIL ORAL) Take 1,000 mg by mouth twice daily. 0 01/11/2023 Discontinued take 1000 mg by mout h twice daily DOCOSAHEXANOIC ACID/EPA (FISH OIL ORAL) Take 1,000 mg by mouth twice daily. 0 Active Comment on above: Take 1,000 mg by pauline th twice daily. docusate sodium 50 mg / sennosides, prison 8.6 mg oral tablet (1 source) Start: 9 End: 9 take 1 tablet by mouth twice daily 1 tablet, Oral, 2 times daily, First dose on Mon11/20/18 at 0045 NOT for abdominal surgery patients. Hold for loose stools. Do Not Crush or Chew if administering orally due to bitter taste. May be crushed if given via tube. famotidine 20 mg oral tablet (20 sources) Histamine-2 Receptor Antagonist Start: 1 End: 1 take 1 tablet by mouth once daily Pepcid 20 MG Oral Tablet 1 (one) Tablet daily for 0 days Quantity: 30 {Tablet} Refills: 0 Ordered: 13-Jul-2021 Janine Serrano CMA Start : 11-Jun-2021 End : 13-Jul-2021 Inactive Fish Oils (20 sources) take 1 mg by mouth twice daily Fish Oil 1000 MG Oral Capsule two times daily (1000 MG) Active Forteo 600 MCG/2.4ML Subcutaneous Solution Pen-injector (18 sources) Forteo 600 MCG/2 .4ML Subcutaneous Solution Pen-injector (600 MCG/2.4ML) Inactive Forteo 600 MCG/2 .4ML Subcutaneous Solution Pen-injector (600 MCG/2.4ML) Active Gatorade Sports Drink (14 sources) Start: 01-26-2022 End: 01-11-2023 Gatorade Sports Drink Indica tions: Partial intestinal obstruction, unspecified cause (HCC) Use as directed for Miralax / Gatorade Bowel Prep Kit 01/26/2022 01/11/2023 Discontinued Start: 01-26-2022 End: 01-11-2023 Gatorade Sports Drink Indica tions: Partial intestinal obstruction, unspecified cause (HCC) Use as directed for Miralax / Gatorade Bowel Prep Kit 0 01/26/2022 01/11/2023 Discontinued Start: 01-26-2022 Gatorade Sport s Drink Indications: Partial intestinal obstruction, unspecified cause (HCC) Use as directed for Miralax / Gatorade Bowel Prep Kit 0 01/26/2022 Active Comment on above: Use as directed for Miralax / Gatorade Bowel Prep Kit Glucosamine (1 source) glucosamine by [facility] once a day as directed glucosamine Jovita Young LPN hyaluronate (1 source) take 10 mg by mouth once daily hyaluronic acid 10 mg 10 mg by mouth once a day as directed hyaluronic acid 10 mg 10 mg Jovita Young LPN hydrOXYzine hydrochloride 25 mg oral tablet (20 sources) Antihistamine Start: 07-08-20 End: 11-11-19 take 1 tablet by mouth every six hours as needed hydrOXYzine HCl 25 MG Oral Tablet 1 (one) Tablet po q 6 hours prn itching for 0 days Quantity: 20 {Tablet} Refills: 1 Ordered: 11-Nov-2021 JONNY Harrison LPN Start : 08-Jul-2021 End : 11-Nov-2021 Inactive ibuprofen 400 mg oral tablet (16 sources) Nonsteroidal Anti-inflammatory Drug Start: 12-24-19 End: 05-06-20 take 1 tablet by mouth every six hours as needed for pain Ibuprofen 400 mg Tablet Discontinued 400 mg PO EVERY 6 HOURS as needed for Pain December 23, 2021 1:00am May 06, 2025 8:54am Start: 11-21-2018 End: 11-22-2018 ibuprofen (ADVIL,MOTRIN) tab let 600 mg take 1 tablet by pauline th twice daily IBUPROFEN 200 MG TABS 1 tablet by mouth twice a day ibuprofen [id number] Jovita Young LPN 1 ml ketorolac tromethamine 30 mg/ml injection (1 source) Nonsteroidal Anti-inflammatory Drug, Cyclooxygenase Inhibitor Start: 11-21-2018 End: 11-22-2018 take 15 mg intravenous route every six hours as needed ketorolac (TORADOL) injection 15 mg levocetirizine dihydrochloride 5 mg oral tablet (20 sources) Histamine-1 Receptor Antagonist Start: 06-11-2021 End: 11-11-2021 take 1 tablet by mouth once daily Xyzal Allergy 24HR 5 MG Oral Tablet 1 (one) Tablet daily as directed for 0 days Quantity: 30 {Tablet} Refills: 0 Ordered: 11-Nov-2021 Hunter COLLINS JONNY Start : 11-Jun-2021 End : 11-Nov-2021 Inactive 10 ml lidocaine hydrochloride 10 mg/ml injection (1 source) Antiarrhythmic, Amide Local Anesthetic Start: 08-10-2023 End: 08-10-2023 lidocaine (PF) 10 mg/mL (1 %) 4 mL injection (XYLOCAINE) Lysine (1 source) take 100 mg by mouth once daily lysine 100 mg 100 mg by mouth once a day as directed lysine 100 mg 100 mg Jovita Young LICENSED INVESTMENT SALES ASSISTANT Magnesium Sulfate (1 source) take 250 mg by mouth once daily magnesium sulfate 250 mg 250 mg by mouth once a day as directed magnesium sulfate 250 mg 250 mg Jovita Young [employer]IC[employer] INVESTMENT SALES ASSISTANT manganese 5 mg 5 mg (1 source) take 5 mg by mouth once daily manganese 5 mg 5 mg by mouth once a day as directed manganese 5 mg 5 mg Jovita Young [employer]IC[employer]ED INVESTMENT SALES ASSISTANT methylsulfonylmethane 500 mg oral capsule (1 source) take 500 mg by mouth once daily methylsulfonylmethane 500 mg 500 mg by mouth once a day as directed methylsulfonylmethane 500 mg 500 mg Jovita Vanegasler LICENSED INVESTMENT SALES ASSISTANT Multivitamin Oral Tablet (20 sources) Multivitamin Ora l Tablet daily Active Multivitamin preparation (8 sources) Start: 06-02-2020 take 0.5 tablet by mouth twice daily MULTIPLE VITAMINS TABS 0.5 tablet by mouth twice a day multivitamin [id number] Jovita Young LICENSED INVESTMENT SALES ASSISTANT Start: 09-26-2017 take 0.5 tablet by m outh twice daily Multivitamin Active 0.5 TABLET PO TWICE A DAY September 26, 2017 5:15pm Start: 09-26-2017 take 0.5 tablet by m outh twice daily Multivitamin Active 0.5 TABLET PO TWICE A DAY September 26, 2017 12:00am Start: 09-26-2017 take 0.5 tablet by m outh twice daily Multivitamin Active 0.5 TABLET PO TWICE A DAY September 26, 2017 1:00am omega-3 acid ethyl esters capsule (1 source) take 1 capsule by mouth twice daily omega-3 acid ethyl esters capsule 1 capsule by mouth twice a day omega-3 acid ethyl esters capsule Jovita [place] [facility] perflutren lipid microspheres 1.3 mL in NaCl (PF) 0.9% 10 mL injection (DEFINITY) (20 sources) Start: 01-11-2023 End: 04-11-2024 perflutren lipid microspheres 1.3 mL in NaCl (PF) 0.9% 10 mL injection (DEFINITY) permethrin 50 mg/ml topical cream (20 sources) Pyrethroid Start: 09-06-2022 Permethrin 5 % External Cream uad Application apply cream from chin down to soles of feet for 0 days Quantity: 60 {Gram} Refills: 1 Ordered: 21-Jun-2022 Annamarie FITZPATRICK, Bessie Veelz MD Start : 21-Jun-2022 Active Comments: rinse off after 8-14 hours may repeat in 7 days if necessary Start: 07-09-2021 End: 11-11-2021 Permethrin 5 % External Crea m uad Application apply cream from head to soles of feet avoiding eyes and mouth for 0 days Quantity: 30 {Gram} Refills: 1 Ordered: 11-Nov-2021 JONNY Harrison LPN Start : 09-Jul-2021 End : 11-Nov-2021 Inactive Comments: rinse off after 8-14 hours may repeat in 7 days if necessary Comment on above: rinse off after 8-14 hours may repeat in 7 days if necessary polyethylene glycol 3350 16892 mg powder for oral solution (6 sources) Osmotic Laxative Start: 01-26-2022 End: 05-16-2022 polyethylene glycol 3350 (MIRALAX, GLYCOLAX) 17 gram/dose powder Indications: Partial intestinal obstruction, unspecified cause (HCC) Use as directed for Miralax / Gatorade Bowel Prep Kit 238 g 01/26/2022 05/16/2022 Discontinued Start: 11-20-2018 End: 11-29-2018 polyethylene glycol (MIRALAX ) 17 gram powder Take 17 (seventeen) g by mouth daily for 7 days Start: 11/22/18. 7 packet 0 11/22/2018 11/29/2018 Active Comment on above: Use as directed for Miralax / Gatorade Bowel Prep Kit predniSONE 20 mg oral tablet (15 sources) Start: 08-12-2023 predniSONE 20 mg oral tablet 1 Tablet 2 times per day for 4 days then 1 time a day for 4 days then 1/2 a day for 4 days for 0 days Quantity: 14 {Tablet} Refills: 0 Ordered: 12-Aug-2023 Annamarie FITZPATRICK, Bessie Velez MD Start : 12-Aug-2023 Active Start: 04-24-2023 End: 07-10-2023 predniSONE 20 mg oral tablet 1 Tablet 2 times per day for 4 days then 1 time a day for 4 days then 1/2 a day for 4 days for 0 days Quantity: 14 {Tablet} Refills: 0 Ordered: 10-Jul-2023 Susan DENNISJoan Start : 24-Apr-2023 End : 10-Jul-2023 Inactive promethazine hydrochloride 25 mg oral tablet (20 sources) Phenothiazine Start: 03-24-2021 End: 03-29-2021 take 1 tablet by mouth every six hours as needed Promethazine HCl 25 MG Oral Tablet 1 (one) Tablet every 6 hours prn for 0 days Quantity: 10 {Tablet} Refills: 0 Ordered: 29-Mar-2021 JONNY Harrison LPN Start : 24-Mar-2021 End : 29-Mar-2021 Inactive Start: 02-20-2021 End: 03-29-2021 take 1 tablet by mouth every six hours as needed for nausea Promethazine HCl 12.5 MG Oral Tablet 1 (one) Tablet every 6 hours prn nausea for 0 days Quantity: 10 {Tablet} Refills: 0 Ordered: 29-Mar-2021 JONNY Harrison LPN Start : 20-Feb-2021 End : 29-Mar-2021 Inactive rosuvastatin calcium 5 mg oral tablet (20 sources) HMG-CoA Reductase Inhibitor Start: 09-29-2022 take 1 tablet by mouth once daily rosuvastatin 5 mg oral tablet 1 Tablet daily for 0 days Quantity: 90 {Tablet} Refills: 3 Ordered: 10-Jul-2023 Annamarie FITZPATRICK, Bessie De Luna MD, Bessie Ac Start : 10-Jul-2023 Active Comments: Mail order. Comment on above: Take 5 mg by mouth o nce daily. Mail order. 125 ml sodium chloride 9 mg/ml prefilled syringe (20 sources) Start: 01-11-2023 End: 04-11-2024 sodium chloride 0.9 % (flush) 10 mL (BD POSIFLUSH) Start: 11-19-2018 End: 11-22-2018 sodium chloride (PF) (NS) fl ush 5 mL 28 actuat teriparatide 0.02 mg/actuat pen injector (20 sources) Parathyroid Hormone Analog Start: 03-24-2021 End: 05-19-2021 Teriparatide (Forteo) 20 mcg/dose (620mcg/2.48mL) Pen Injector Discontinued 20 ug SC DAILY March 24, 2021 12:00am May 19, 2021 1:30pm End: 01-11-2023 teriparatide (FORTEO SUBCUTA NEOUS) Inject subcutaneously. 01/11/2023 Discontinued Forteo 600 MCG/2 .4ML Subcutaneous Solution Pen-injector (600 MCG/2.4ML) Inactive End: 01-11-2023 teriparatide (FORTEO SUBCUTA NEOUS) Inject subcutaneously. 0 01/11/2023 Discontinued teriparatide (FO RTEO SUBCUTANEOUS) Inject subcutaneously. 0 Active Comment on above: Inject subcutaneousl y. tiZANidine 2 mg oral capsule (9 sources) Central alpha-2 Adrenergic Agonist Start: 07-10-2023 Zanaflex 2 mg oral capsule 1 (one) capsule at night prn for bruxism for 0 days Quantity: 20 {Capsule}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 foramina stenosis. Moderate canal stenosis. C7-T1: No significant foraminal or canal stenosis. MRI/Spine Cervical (Routine) IMPRESSION: Degenerate changes, predominantly at C5-C6 and C6-C7 where there is moderate canal stenosis. Moderate bilateral foramina stenosis at C6-C7. Reading Location: [facility] CC: Dr. Bessie De Luna MD; Dr. Seun Bueno MD Supervisor Chemical: Signed Normal [facility] Spine Thoracic (Routine)on 0 06-30-2025 Spine Thoracic (Routine) [facility] [address] [place] [address] [id number] Spine Thoracic (Routine) MR#: [id number] Acct: [id number] Name: KATHRIN BRAVO Rep #: [id number] : 1950 F 74 From: Radha Tejeda MD PCP: Dr. Bessie De Luna MD Status: REG CLI Study: Spine Thoracic (Routine) Date of Exam: Exam# [id number] Ordering Dr: Seun Bueno MD PROCEDURE: SPINE THORACIC (ROUTINE) 06/30/2025 REASON FOR EXAM: DORSALGIA TECHNIQUE: Procedure Code: MRISPT Modality: MR Procedure: SPINE THORACIC (ROUTINE) Multiplanar and multisequence images were obtained. FINDINGS: Vertebrae: The vertebral bodies are preserved. Disc levels: Disc desiccation without significant foraminal or canal stenosis. Alignment: Normal alignment. Spinal Cord: Unremarkable. MRI/Spine Thoracic (Routine) IMPRESSION: Unremarkable MRI of the thoracic spine without spinal cord abnormality or significant canal or foramina stenosis. Reading Location: [facility] CC: Dr. Bessie De Luna MD; Dr. Seun Bueno MD Supervisor Chemical: Signed Normal [facility] hCG Titer Quant., Serumon HCG QUANT. 5 mIU/mL Normal <9 non-preg [facility] Comment on above: Result Comment: Gest ational Age 0.2-1 Week: 5-50 mIU/mL 1-2 Weeks: 50-500 mIU/mL 2-3 Weeks: 100-5000 mIU/mL 3-4 Weeks: 500-10,000 mIU/mL 4-5 Weeks:1000-50,000 mIU/mL 5-6 Weeks: 10,000-100,000 mIU/mL 6-8 Weeks: 15,000-200,000 mIU/mL 2-3 Months:10,000-100,000 mIU/mL Performed By: #### L 500.2500, L700.8000, L100.0500 #### [facility] [address] [facility] [place], [address] Cerv Spine 4 or 5 Viewson Cerv Spine 4 or 5 Views [facility] [address] [place] [address] Cerv Spine 4 or 5 Views MR#: [id number] Acct: [id number] Name: KATHRIN BARVO Rep #: [id number] : 1950 F 74 From: Nima Johns MD PCP: Dr. Bessie De Luna MD Status: DEP AMB Study: Cerv Spine 4 or 5 Views Date of Exam: 05/28/25 Exam# [id number] Ordering Dr: Graciela Ribera PROCEDURE: CERV SPINE 4 OR 5 VIEWS 05/28/2025 REASON FOR EXAM: PAIN TECHNIQUE: CERV SPINE 4 OR 5 VIEWS COMPARISON: X-ray cervical spine 09/19/2019. FINDINGS: Vertebrae: Advanced degenerative changes of visualized cervical and upper thoracic spine. Surgical fixation hardware is visualized over left clavicle. Disc spaces: Reduced disc height more prominent along C2-C3 and C4 - C5 vertebrae. Anterolisthesis of C7 over T1. Vertebra. Alignment: Exaggerated cervical lordosis, likely related to underlying degenerative changes. soft tissues: Mild soft tissue thickening overlying posterior elements. RAD/Cerv Spine 4 or 5 Views IMPRESSION: Advanced degenerative changes of visualized cervical spine. No definite evidence of any acute fracture deformity. If there is persistent or worsening pain, CT cervical spine can be considered for further characterization. Reading Location: [id number] CC: ELPIDIO Manzano; Dr. Bessie De Luna MD Supervisor Chemical: Signed Normal [facility] Orthopedic Visit Reporton Orthopedic Visit Report [facility] [address] [place] [address] OFFICE VISIT Date of Service: 05/28/25 MR#: [id number] Acct: [id number] Name: KATHRIN BRAVO Rep #: [id number] : 1950 Provider: ELPIDIO Manzano Age/Sex: 74/F Location: [facility] Status: Signed Intake Vital Signs 05/06/25 08:47 05/28/25 10:04 Height 5 ft 1 in 5 ft 1 in Weight: 112 lb 4 oz BMI 21.2 Intake Visit Reasons: THORACIC SPINE Chief Complaint: Thoracic spine pain Accompanied by: Self Is patient in pain?: Yes Pain scale (1-10): 2 Allergies propoxyphene (From Darvon) Allergy (Mild, Verified 05/28/25 10:10) unknown abaloparatide (From Tymlos) Allergy (Verified 05/28/25 10:10) Other acetaminophen (From Vicodin) Allergy (Verified 05/28/25 10:10) unknown hydrocodone (From Vicodin) Allergy (Verified 05/28/25 10:10) unknown lactose Allergy (Verified 05/28/25 10:10) Diarrhea mesalamine Allergy (Verified 05/28/25 10:10) Rash nickel Allergy (Verified 05/28/25 10:10) Other codeine Adverse Reaction (Intermediate, Verified 05/28/25 10:10) Vomiting epinephrine Adverse Reaction (Verified 05/28/25 10:10) HEART RACES gluten Adverse Reaction (Verified 05/28/25 10:10) Diarrhea soy Adverse Reaction (Verified 05/28/25 10:10) Upset Stomach sulfasalazine Adverse Reaction (Verified 05/28/25 10:10) Other Medications ???Medication ???Instructions ???Recorded ???Confirmed ???Type Lactobacillus acidophilus 100 mg PO BID immune health 05/28/25 History (Acidophilus capsule) multivitamin 0.5 tab PO BID supplement 09/26/17 05/28/25 History amlodipine 5 mg tablet 2.5 mg PO BID bp 08/19/20 05/28/25 History bilberry 100 mg capsule 100 mg PO DAILY 08/19/20 05/28/25 History biotin 1,000 mcg chewable tablet 2,000 mcg PO BID 12/19/21 05/28/25 History calcium 600 mg capsule 600 mg PO DAILY 12/19/21 05/28/25 History glucosamine 60 ml PO DAILY 12/19/21 05/28/25 H istory HCl-methylsulfonylmethane 1,500 mg-500 mg/30 mL liquid omega-3 fatty acids 500 mg PO BID 12/19/21 05/28/25 Hi story Held on 12/20/21. Instructions: Resume on 12/27/21. Compression stockings (10-20) #2 ea 05/06/25 05/28/25 Rx denosumab 60 mg/mL subcutaneous 60 mg subcut UD 05/06/25 05/28/25 History syringe (Prolia) gabapentin 100 mg capsule 100 mg PO BID #60 caps 05/07/25 Rx cyclobenzaprine 10 mg tablet 10 mg PO QHS PRN 05/28/25 05/28/25 History Have you fallen in the past year?: No PFSH Medical History History of blunt trauma to abdomen RLQ abdominal pain Constipation Colon abnormality Alcohol use Arthritis Hepatitis Easy bruising Dietary restriction History of colitis Belching Non-smoker History of echocardiogram History of stress test Constipation Abdominal pain Meckel diverticulum History of stress test Clavicle fracture IBS (irritable bowel syndrome) HTN (hypertension) Osteopenia Surgical History History of exploratory laparotomy ( 03/2021) Hx of laparoscopy History of esophagogastroduodenoscop y (EGD) Hx of colonoscopy Hx of exploratory laparotomy S/P appendectomy History of cholecystectomy History of tonsillectomy and adenoidectomy Family History Father Diabetes Hypertension Grandmother Diabetes Hypertension Brother Hypertension Mother COPD (chronic obstructive pulmonary disease) Chronic mental illness Social History household members: spouse housing: house current occupational status: retired Smoking Status: Never smoker alcohol intake: current alcohol intake frequency: a few times a month substance use type: does not use frequency: 3-4 times per week seatbelt use: always do you feel safe at home: Yes HPI THORACIC SPINE Details: This documentation accurately reflects the service provided and the decisions made by me, ELPIDIO Manzano 05/28/25 1004. Part of today???s visit was documented by Hattie Cedillo MA, acting as scribe. KATHRIN BRAVO is a 74 year old F here today for thoracic spine. Patient states that her pain is a 2 today. The pain she is having is in thoracic are underneath the left shoulder blade. She states that the pain at the end of the day it feels like an itchy feeling. When she is active with her left arm the pain becomes a burning sensation. When riding her bike leaning forward the pain will go to a sharp pain. Sometime she will have pain in the left thumb, but it doesn't happen all the time.Patient states that this happened a year and 3 months ago. She states that she h (more content not included)... Normal [facility] Thoracic Spine 2 Viewson Thoracic Spine 2 Views [facility] [address] [place], [place] [id number] Thoracic Spine 2 Views MR#: [id number] Acct: [id number] Name: KATHRIN BRAVO Rep #: [id number] : 1950 F 74 From: Jason Avalos MD PCP: Dr. Bessie De Luna MD Status: DEP AMB Study: Thoracic Spine 2 Views Date of Exam: 05/28/25 Exam# [id number] Ordering Dr: Graciela Ribera PROCEDURE: THORACIC SPINE 2 VIEWS 05/28/2025 REASON FOR EXAM: BACK PAIN TECHNIQUE: THORACIC SPINE 2 VIEWS FINDINGS: Dextroscoliosis. No evidence of acute fracture or dislocation. Vertebral body heights are maintained. Moderate degenerative changes most pronounced in the upper thoracic spine. RAD/Thoracic Spine 2 Views IMPRESSION: Spondylosis. Scoliosis. Reading Location: [id number] CC: ELPIDIO Manzano; Dr. Bessie De Luna MD Supervisor Chemical: Signed Normal [facility] Folates, RBCon 05-22-2025 Fol.,Hemolysate 569.0 ng/mL Normal Not Estab. [facility] Comment on above: Order Comment: Test( s) 938445-Qub. B1, Whole Bloodwas developed and its performance characteristicsdetermined by [employer]. It has not been cleared or approvedby the Food and Drug Administration. Performed By: #### L 503.0106, L3300.0960, L3300.8000, L506.0400, L501.9520, L3100.1725, L501.5200, L101.9900, L500.4050, L100.0500 ####[facility] [address] [place], [place], [phone] Folate, RBC 1423 ng/mL Normal >498 [facility] Comment on above: Order Comment: Test( s) 128506-Pcv. B1, Whole Bloodwas developed and its performance characteristicsdetermined by [employer]. It has not been cleared or approvedby the Food and Drug Administration. Performed By: #### L 503.0106, L3300.0960, L3300.8000, L506.0400, L501.9520, L3100.1725, L501.5200, L101.9900, L500.4050, L100.0500 ####[facility] [address] [place], [place], [phone] Hematocrit (Bld) [Volume fraction] 40.0 % Normal 34.0-46.6 [facility] Comment on above: Order Comment: Test( s) 798956-Iey. B1, Whole Bloodwas developed and its performance characteristicsdetermined by [facility]. It has not been cleared or approvedby the Food and Drug Administration. Performed By: #### L 503.0106, L3300.0960, L3300.8000, L506.0400, L501.9520, L3100.1725, L501.5200, L101.9900, L500.4050, L100.0500 ####[facility] [address] [place], [place], [id number] Vitamin B1, Thiamineon 05-22 VIT B1 THIAMINE 116.0 nmol/L Normal 66.5-200.0 [facility] Comment on above: Order Comment: Test( s) 861163-Cuc. B1, Whole Bloodwas developed and its performance characteristicsdetermined by [employer]. It has not been cleared or approvedby the Food and Drug Administration. Result Comment: Perf ormed at: [address] [id number] [employer] Val[employer] Assembler: Refugio Pinedo PhD, Phone: [phone] Performed at: [address] [id number] [employer] As[employer]er: Miguel Matt MD, Phone: [phone] Performed By: #### L 503.0106, L3300.0960, L3300.8000, L506.0400, L501.9520, L3100.1725, L501.5200, L101.9900, L500.4050, L100.0500 ####[facility] [address] [place], [place], [id number] Vitamin D 1,25-Dihydroxyon 0 05-21-2025 VIT D 1,25 DIHY 69.5 pg/mL Normal 24.8-81.5 [facility] Comment on above: Result Comment: Perf ormed at: [facility] [address] [id number] Magn[employer] Valve Assembler: Miguel Matt MD, Phone: [phone] Performed By: #### L 503.0106, L3300.0960, L3300.8000, L506.0400, L501.9520, L3100.1725, L501.5200, L101.9900, L500.4050, L100.0500 ####[facility] [address] [place], [address] Anion gap in Serum or Plasma Ordered By: Seun Bueno on 05-19-2025 Anion gap [Moles/Vol] 11 mmol/L - [facility] BUN/creatinine ratioOrdered By: Seun Bueno on 05-19-2025 Urea nitrogen/Creatinine [Mass ratio] 17.2 mg/mg - [facility] Bilirubin, totalOrdered By: Seun Bueno on 05-19-2025 Bilirubin [Mass/Vol] 0.52 mg/dL 0.00-1.30 [facility] CBC-Complete Blood Cnt No Di ffon 05-19-2025 Erythrocyte distribution width (RBC) [Ratio] 13.9 % Normal 11.6-14.6 [facility] Comment on above: Performed By: #### L 503.0106, L3300.0960, L3300.8000, L506.0400, L501.9520, L3100.1725, L501.5200, L101.9900, L500.4050, L100.0500 #### [facility] [address] [place], [address] Hematocrit (Bld) [Volume fraction] 40.5 % Normal 37-47 [facility] Comment on above: Performed By: #### L 503.0106, L3300.0960, L3300.8000, L506.0400, L501.9520, L3100.1725, L501.5200, L101.9900, L500.4050, L100.0500 #### [facility] [address] [place], [address] Hemoglobin (Bld) [Mass/Vol] 13.1 g/dL Normal 12.0-15.0 [facility] Comment on above: Performed By: #### L 503.0106, L3300.0960, L3300.8000, L506.0400, L501.9520, L3100.1725, L501.5200, L101.9900, L500.4050, L100.0500 #### [facility] [address] [place], [address] MCH (RBC) [Entitic mass] 31.9 pg Normal 27.0-32.0 [facility] Comment on above: Performed By: #### L 503.0106, L3300.0960, L3300.8000, L506.0400, L501.9520, L3100.1725, L501.5200, L101.9900, L500.4050, L100.0500 #### [facility] [address] [place], [address] MCHC (RBC) [Mass/Vol] 32.3 g/dL Normal 32-36 [facility] Comment on above: Performed By: #### L 503.0106, L3300.0960, L3300.8000, L506.0400, L501.9520, L3100.1725, L501.5200, L101.9900, L500.4050, L100.0500 #### [facility] [address] [place], [address] MCV (RBC) [Entitic vol] 98.5 fL Normal 81-99 [facility] Comment on above: Performed By: #### L 503.0106, L3300.0960, L3300.8000, L506.0400, L501.9520, L3100.1725, L501.5200, L101.9900, L500.4050, L100.0500 #### [facility] [address] [place], [address] Platelet mean volume (Bld) [Entitic vol] 11.4 fL Normal 6.2-12.0 [facility] Comment on above: Performed By: #### L 503.0106, L3300.0960, L3300.8000, L506.0400, L501.9520, L3100.1725, L501.5200, L101.9900, L500.4050, L100.0500 #### [facility] [address] [place], [address] Platelets (Bld) [#/Vol] 329 10*3/uL Normal 150-450 [facility] Comment on above: Performed By: #### L 503.0106, L3300.0960, L3300.8000, L506.0400, L501.9520, L3100.1725, L501.5200, L101.9900, L500.4050, L100.0500 #### [facility] [address] [place], [address] RBC (Bld) [#/Vol] 4.11 10*6/uL Low 4.2-5.4 [facility] Comment on above: Performed By: #### L 503.0106, L3300.0960, L3300.8000, L506.0400, L501.9520, L3100.1725, L501.5200, L101.9900, L500.4050, L100.0500 #### [facility] [address] [place], [address] RDW SD 50.6 fl High 35.1-43.9 [facility] Comment on above: Performed By: #### L 503.0106, L3300.0960, L3300.8000, L506.0400, L501.9520, L3100.1725, L501.5200, L101.9900, L500.4050, L100.0500 #### [facility] [address] [place], [address] WBC (Bld) [#/Vol] 4.7 10*3/uL Normal 4.4-11.0 [facility] Comment on above: Performed By: #### L 503.0106, L3300.0960, L3300.8000, L506.0400, L501.9520, L3100.1725, L501.5200, L101.9900, L500.4050, L100.0500 #### [facility] [address] [place], [address] (793) Carbon dioxide, total [Moles /volume] in Central venous bloodOrdered By: Seun Bueno on 05-19-2025 CO2 [Moles/Vol] 23.1 mmol/L 21.0-32.0 [facility] Chloride assayOrdered By: Ra ryan Bueno on 05-19-2025 Chloride [Moles/Vol] 104 mmol/L 98-108 [facility] Comprehensive Metabolic Prof ilon 05-19-2025 Albumin [Mass/Vol] 4.5 g/dL Normal 3.4-4.8 [facility] Comment on above: Performed By: #### L 503.0106, L3300.0960, L3300.8000, L506.0400, L501.9520, L3100.1725, L501.5200, L101.9900, L500.4050, L100.0500 ####[facility] [address] [place], [address] Albumin/Globulin [Mass ratio] 1.6 {ratio} Normal 0.9-2.4 [facility] Comment on above: Performed By: #### L 503.0106, L3300.0960, L3300.8000, L506.0400, L501.9520, L3100.1725, L501.5200, L101.9900, L500.4050, L100.0500 ####[facility] [address] [place], [address] ALK PHOS 58 U/L Normal 35-104 [facility] Comment on above: Performed By: #### L 503.0106, L3300.0960, L3300.8000, L506.0400, L501.9520, L3100.1725, L501.5200, L101.9900, L500.4050, L100.0500 ####[facility] [address] [place], [address] ALT [Catalytic activity/Vol] 20 U/L Normal <=34 [facility] Comment on above: Performed By: #### L 503.0106, L3300.0960, L3300.8000, L506.0400, L501.9520, L3100.1725, L501.5200, L101.9900, L500.4050, L100.0500 ####[facility] [address] [place], [address] AST [Catalytic activity/Vol] 27 U/L Normal <=31 [facility] Comment on above: Performed By: #### L 503.0106, L3300.0960, L3300.8000, L506.0400, L501.9520, L3100.1725, L501.5200, L101.9900, L500.4050, L100.0500 ####[facility] [address] [place], [address] Bilirubin [Mass/Vol] 0.52 mg/dL Normal 0.00-1.30 [facility] Comment on above: Performed By: #### L 503.0106, L3300.0960, L3300.8000, L506.0400, L501.9520, L3100.1725, L501.5200, L101.9900, L500.4050, L100.0500 ####[facility] [address] [place], [address] BUN/CRE 17.2 RATIO Normal 10-20 [facility] Comment on above: Performed By: #### L 503.0106, L3300.0960, L3300.8000, L506.0400, L501.9520, L3100.1725, L501.5200, L101.9900, L500.4050, L100.0500 ####[facility] [address] [place], [address] Calcium [Mass/Vol] 9.5 mg/dL Normal 7.6-11.0 [facility] Comment on above: Performed By: #### L 503.0106, L3300.0960, L3300.8000, L506.0400, L501.9520, L3100.1725, L501.5200, L101.9900, L500.4050, L100.0500 ####[facility] [address] [place], [place], [phone](466) Chloride [Moles/Vol] 104 mmol/L Normal 98-108 [facility] Comment on above: Performed By: #### L 503.0106, L3300.0960, L3300.8000, L506.0400, L501.9520, L3100.1725, L501.5200, L101.9900, L500.4050, L100.0500 ####[facility] [address] [place], [address] CO2 [Moles/Vol] 23.1 mmol/L Normal 21.0-32.0 [facility] Comment on above: Performed By: #### L 503.0106, L3300.0960, L3300.8000, L506.0400, L501.9520, L3100.1725, L501.5200, L101.9900, L500.4050, L100.0500 ####[facility] [address] [place], [address] Creatinine [Mass/Vol] 0.82 mg/dL Normal 0.70-1.20 [facility] Comment on above: Performed By: #### L 503.0106, L3300.0960, L3300.8000, L506.0400, L501.9520, L3100.1725, L501.5200, L101.9900, L500.4050, L100.0500 ####[facility] [address] [place], [place], [phone](896) GAP 11 Normal 5-15 [facility] Comment on above: Performed By: #### L 503.0106, L3300.0960, L3300.8000, L506.0400, L501.9520, L3100.1725, L501.5200, L101.9900, L500.4050, L100.0500 ####[facility] [address] [place], [address](717) GFR/1.73 sq M.predicted among non-blacks MDRD (S/P/Bld) [Vol rate/Area] 74 mL/min/{1.73_m2} Normal >60 [facility] Comment on above: Result Comment: mL/m in/1.73m2 CKD-EPI Creatinine Equation (2020) Performed By: #### L 503.0106, L3300.0960, L3300.8000, L506.0400, L501.9520, L3100.1725, L501.5200, L101.9900, L500.4050, L100.0500 ####[facility] [address] [place], [place], [phone](557) Globulin (S) [Mass/Vol] 2.8 g/dL Normal 2.2-4.2 [facility] Comment on above: Performed By: #### L 503.0106, L3300.0960, L3300.8000, L506.0400, L501.9520, L3100.1725, L501.5200, L101.9900, L500.4050, L100.0500 ####[facility] [address] [place], [place], [phone](605) Glucose [Mass/Vol] 90 mg/dL Normal 70-99 [facility] Comment on above: Performed By: #### L 503.0106, L3300.0960, L3300.8000, L506.0400, L501.9520, L3100.1725, L501.5200, L101.9900, L500.4050, L100.0500 ####[facility] [address] [place], [address] Potassium [Moles/Vol] 4.2 mmol/L Normal 3.3-5.1 [facility] Comment on above: Performed By: #### L 503.0106, L3300.0960, L3300.8000, L506.0400, L501.9520, L3100.1725, L501.5200, L101.9900, L500.4050, L100.0500 ####[facility] [address] [place], [place], [phone]) Sodium [Moles/Vol] 139 mmol/L Normal 133-145 [facility] Comment on above: Performed By: #### L 503.0106, L3300.0960, L3300.8000, L506.0400, L501.9520, L3100.1725, L501.5200, L101.9900, L500.4050, L100.0500 ####[facility] [address] [place], [address] T PROT 7.3 g/dL Normal 5.9-8.4 [facility] Comment on above: Performed By: #### L 503.0106, L3300.0960, L3300.8000, L506.0400, L501.9520, L3100.1725, L501.5200, L101.9900, L500.4050, L100.0500 ####[facility] [address] [place], [place], [phone] Urea nitrogen [Mass/Vol] 14 mg/dL Normal 4-19 [facility] Comment on above: Performed By: #### L 503.0106, L3300.0960, L3300.8000, L506.0400, L501.9520, L3100.1725, L501.5200, L101.9900, L500.4050, L100.0500 ####[facility] [address] [place], [place], [phone] Erythrocyte Sed Rateon 05-19 SED RATE 3 mm/hr Normal 0-30 [facility] Comment on above: Performed By: #### L 503.0106, L3300.0960, L3300.8000, L506.0400, L501.9520, L3100.1725, L501.5200, L101.9900, L500.4050, L100.0500 ####[facility] [address] [place], [place], [id number] Erythrocyte distribution wid th ratioOrdered By: Seun Bueno on 05-19-2025 Erythrocyte distribution width (RBC) [Ratio] 13.9 % 11.6-14.6 [facility] Erythrocyte distribution wid th standard deviationOrdered By: Seun Bueno on 05-19-2025 Erythrocyte distribution width (RBC) [Ratio] 50.6 fl High 35.1-43.9 [facility] Erythrocyte folate measureme nt with hematocritOrdered By: Seun Bueno on 05-19-2025 Hematocrit (Bld) [Volume fraction] 40.0 % 34.0-46.6 [facility] Erythrocyte sedimentation ra teOrdered By: Seun Bueno on 05-19-2025 ESR (Bld) [Velocity] 3 mm/h 0-30 [facility] Glomerular filtration rate ( GFR) estimation/1.73 sq m using serum, plasma, or whole bOrdered By: Seun Bueno on 05-19-2025 GFR/1.73 sq M.predicted among non-blacks MDRD (S/P/Bld) [Vol rate/Area] 74 mL/min/{1.73_m2} >60 [facility] Comment on above: mL/min/1.73m2 CKD-EP I Creatinine Equation (2020) Hematocrit Auto (Bld) [Volum e fraction]Ordered By: Seun Bueno on 05-19-2025 Hematocrit (Bld) [Volume fraction] 40.5 % 37-47 [facility] Hemoglobin measurementOrdere d By: Seun Bueno on 05-19-2025 Hemoglobin (Bld) [Mass/Vol] 13.1 g/dL 12.0-15.0 [facility] Laboratory - Chemistry and C hemistry - challengeOrdered By: Seun Bueno on 05-19-2025 AST [Catalytic activity/Vol] 27 U/L <32 [facility] MCV (mean corpuscular volume ) determinationOrdered By: Seun Bueno on 05-19-2025 MCV (RBC) [Entitic vol] 98.5 fL 81-99 [facility] Magnesiumon 05-19-2025 Magnesium [Mass/Vol] 2.4 mg/dL High 1.5-2.2 [facility] Comment on above: Performed By: #### L 503.0106, L3300.0960, L3300.8000, L506.0400, L501.9520, L3100.1725, L501.5200, L101.9900, L500.4050, L100.0500 ####[facility] [id number] [place], [address] Magnesium measurement (mass/ volume)Ordered By: Seun Bueno on 05-19-2025 Magnesium (Unsp spec) [Mass/Vol] 2.4 mg/dL High 1.5-2.2 [facility] Mean corpuscular hemoglobin (MCH) determinationOrdered By: Seun Bueno on 05-19-2025 MCH (RBC) [Entitic mass] 31.9 pg 27.0-32.0 [facility] Mean corpuscular hemoglobin concentration (MCHC) determinationOrdered By: Seun Bueno on 05-19-2025 MCHC (RBC) [Mass/Vol] 32.3 g/dL 32-36 [facility] Mean platelet volume determi nationOrdered By: Seun Bueno on 05-19-2025 Platelet mean volume (Bld) [Entitic vol] 11.4 fL 6.2-12.0 [facility] Platelet countOrdered By: Ra ryan Bueno on 05-19-2025 Platelets (Bld) [#/Vol] 329 10*3/uL 150-450 [facility] Potassium measurement (mass/ volume)Ordered By: Seun Bueno on 05-19-2025 Potassium (Unsp spec) [Mass/Vol] 4.2 mmol/L 3.3-5.1 [facility] RBC Auto (Bld) [#/Vol]Ordere d By: Seun Bueno on 05-19-2025 RBC (Bld) [#/Vol] 4.11 10*6/uL Low 4.2-5.4 [facility] Serum creatinine measurement (mass/volume)Ordered By: Seun Bueno on 05-19-2025 Creatinine [Mass/Vol] 0.82 mg/dL 0.70-1.20 [facility] Serum globulin measurementOr dered By: Seun Bueno on 05-19-2025 Globulin (S) [Mass/Vol] 2.8 g/dL 2.2-4.2 [facility] Serum glucose measurement (m ass/volume)Ordered By: Seun Bueno on 05-19-2025 Glucose [Mass/Vol] 90 mg/dL 70-99 [facility] Serum or plasma alanine ferreira otransferase (ALT) measurementOrdered By: Seun Bueno 05-19-2025 ALT [Catalytic activity/Vol] 20 U/L <35 [facility] Serum or plasma albumin padmini urement (mass/volume)Ordered By: Seun Bueno on 05-19-2025 Albumin [Mass/Vol] 4.5 g/dL 3.4-4.8 [facility] Serum or plasma albumin/glob ulin mass ratioOrdered By: Seun Bueno on 05-19-2025 Albumin/Globulin [Mass ratio] 1.6 {ratio} 0.9-2.4 [facility] Serum or plasma alkaline deisy sphatase measurementOrdered By: Seun Bueno on 05-19-2025 ALP [Catalytic activity/Vol] 58 U/L 35-104 [facility] Serum or plasma calcitriol m easurement (mass/volume)Ordered By: Seun Bueno on 05-19-2025 1,25-dihydroxyvitamin D3 [Mass/Vol] 69.5 pg/mL 24.8-81.5 [facility] Comment on above: Performed at: [facility] [address] [id number] Director: Miguel Matt MD, Phone: [phone] Serum or plasma calcium padmini urement (mass/volume)Ordered By: Seun Bueno on 05-19-2025 Calcium [Mass/Vol] 9.5 mg/dL 7.6-11.0 [facility] Serum or plasma thiamine matthias surement (mass/volume)Ordered By: Seun Bueno on 05-19-2025 Thiamine [Mass/Vol] 116.0 nmol/L 66.5-200.0 [facility] Comment on above: Performed at: [facility] [address] [id number] Director: Refugio Pinedo PhD, Phone: [phone] at: [facility] [address] [id number] Director: Miguel Matt MD, Phone: [phone] Serum or plasma urea nitroge n measurement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 at the dual hip: Adequate. BONE MINERAL DENSITY (BMD) CURRENT BONE MINERAL DENSITY (BMD) Region: g/cm2 T-Score Lumbar 1-3 Spine: 1.066 -0.9 Left Femoral Neck: 0.713 -2.3 Left Total Hip: 0.831 -1.4 Right Femoral Neck: 0.782 -1.8 Right Total Hip: 0.798 -1.7 COMPARISON WITH PREVIOUS EXAMS ON: 06/15/2022 Body Region: Prev BMD Current BMD Change (g/cm2) (g/cm2) (%) Lumbar 1-3 Spine: 1.038, 1.066, 2.7% Left Total Hip: 0.811, 0.831, 2.5% Right Total Hip: 0.799, 0798, -0.1% IMPRESSION: Based on BMD and WHO criteria diagnosis is consistent with osteopenia. Today's examination is compared to the technically similar prior study dated 06/15/2022 In the interim there has been no significant change in measured bone mineral density at the lumbar spine or bilateral total hips. * The T-score reflects standard deviations above (+) or below (-) a 20-40 year-old, , female, [place] population. At this age, it is assumed that peak bone mass is reached. * The Z-score reflects standard deviations above (+) or below (-) an age, sex, ethnicity, and weight-matched population. * Osteoporosis is defined as a skeletal disorder characterized by compromised bone strength predisposing to an increased risk of fracture. Bone strength reflects the integration of two main features: BMD and bone quality (JAIR 2001;285:785-795). Any history of fragility fracture is suggestive of osteoporosis, regardless of the BMD data acquired in this study. * Secondary causes of bone loss should be evaluated if clinically indicated as the etiology of low BMD cannot be determined by BMD measurement alone. FRAX is an available clinical tool developed to evaluate fracture risk in patients using individualized clinical risk factors. The online calculator can be accessed at the following link: https://frax.shef.ac.uk/F RAX/ The physician who interpreted this study is a Certified Clinical Directory Carrier by the International Society of Clinical Densitometry Nghia Amaya M.D., CCD. Normal [facility] DXA Skeletal system.axial Vi ews for bone densityon 07-17-2024 IMPRESSION: Based on BMD and WHO criteria diagnosis is consistent with osteopenia. Today's examination is compared to the technically similar prior study dated 06/15/2022 In the interim there has been no significant change in measured bone mineral density at the lumbar spine or bilateral total hips. * The T-score reflects standard deviations above (+) or below (-) a 20-40 year-old, , female, [place] population. At this age, it is assumed that peak bone mass is reached. * The Z-score reflects standard deviations above (+) or below (-) an age, sex, ethnicity, and weight-matched population. * Osteoporosis is defined as a skeletal disorder characterized by compromised bone strength predisposing to an increased risk of fracture. Bone strength reflects the integration of two main features: BMD and bone quality (JAIR 2001;285:785-795). Any history of fragility fracture is suggestive of osteoporosis, regardless of the BMD data acquired in this study. * Secondary causes of bone loss should be evaluated if clinically indicated as the etiology of low BMD cannot be determined by BMD measurement alone. FRAX is an available clinical tool developed to evaluate fracture risk in patients using individualized clinical risk factors. The online calculator can be accessed at the following link: https://frax.shef.ac.uk/F RAX/ The physician who interpreted this study is a Certified Clinical Directory Carrier by the International Society of Clinical Densitometry Nghia Amaya M.D., [facility]. OLOGY EXAM: BONE DENSITY A XIAL (HIP, PELVIS, SPINE) 07/17/2024 11:11 AM TECHNIQUE: DXA scanning using a [employer] Advance bone densitometer at the [facility] was performed on 07/17/2024 11:11 AM CLINICAL INDICATIONS: senile osteoporosis, menopause RELEVANT CLINICAL HISTORY: M81.0:Senile osteoporosis Z78.0:Menopause COMPARISON: Today's examination is compared to the technically similar prior study dated 06/15/2022 FINDINGS: 1. Quality of the examination at the L1-4 lumbar spine: Limited secondary to increased sclerosis at the L4 level, L4 level excluded from evaluation. 2. Quality of the examination at the dual hip: Adequate. BONE MINERAL DENSITY (BMD) CURRENT BONE MINERAL DENSITY (BMD) Region: g/cm2 T-Score Lumbar 1-3 Spine: 1.066 -0.9 Left Femoral Neck: 0.713 -2.3 Left Total Hip: 0.831 -1.4 Right Femoral Neck: 0.782 -1.8 Right Total Hip: 0.798 -1.7 COMPARISON WITH PREVIOUS EXAMS ON: 06/15/2022 Body Region: Prev BMD Current BMD Change (g/cm2) (g/cm2) (%) Lumbar 1-3 Spine: 1.038, 1.066, 2.7% Left Total Hip: 0.811, 0.831, 2.5% Right Total Hip: 0.799, 0798, -0.1% RADIOLOGY Nghia Amaya MD - 07/17/2024 EXAM: BONE DENSITY AXIAL (HIP, PELVIS, SPINE) 07/17/2024 11:11 AM TECHNIQUE: DXA scanning using a [employer] Advance bone densitometer at the [facility] was performed on 07/17/2024 11:11 AM CLINICAL INDICATIONS: senile osteoporosis, menopause RELEVANT CLINICAL HISTORY: M81.0:Senile osteoporosis Z78.0:Menopause COMPARISON: Today's examination is compared to the technically similar prior study dated 06/15/2022 FINDINGS: 1. Quality of the examination at the L1-4 lumbar spine: Limited secondary to increased sclerosis at the L4 level, L4 level excluded from evaluation. 2. Quality of the examination at the dual hip: Adequate. BONE MINERAL DENSITY (BMD) CURRENT BONE MINERAL DENSITY (BMD) Region: g/cm2 T-Score Lumbar 1-3 Spine: 1.066 -0.9 Left Femoral Neck: 0.713 -2.3 Left Total Hip: 0.831 -1.4 Right Femoral Neck: 0.782 -1.8 Right Total Hip: 0.798 -1.7 COMPARISON WITH PREVIOUS EXAMS ON: 06/15/2022 Body Region: Prev BMD Current BMD Change (g/cm2) (g/cm2) (%) Lumbar 1-3 Spine: 1.038, 1.066, 2.7% Left Total Hip: 0.811, 0.831, 2.5% Right Total Hip: 0.799, 0798, -0.1% IMPRESSION IMPRESSION: Based on BMD and WHO criteria diagnosis is consistent with osteopenia. Today's examination is compared to the technically similar prior study dated 06/15/2022 In the interim there has been no significant change in measured bone mineral density at the lumbar spine or bilateral total hips. * The T-score reflects standard deviations above (+) or below (-) a 20-40 year-old, , female, [place] population. At this age, it is assumed that peak bone mass is reached. * The Z-score reflects standard deviations above (+) or below (-) an age, sex, ethnicity, and weight-matched population. * Osteoporosis is defined as a skeletal disorder characterized by compromised bone strength predisposing to an increased risk of fracture. Bone strength reflects the integration of two main features: BMD and bone quality (JAIR 2001;285:785-795). Any history of fragility fracture is suggestive of osteoporosis, regardless of the BMD data acquired in this study. * Secondary causes of bone loss should be evaluated if clinically indicated as the etiology of low BMD cannot be determined by BMD measurement alone. FRAX is an available clinical tool developed to evaluate fracture risk in patients using individualized clinical risk factors. The online calculator can be accessed at the following link: https://frax.shef.ac.uk/Sharona ANGELES/ The physician who interpreted this study is a Certified Clinical Directory Carrier by the International Society of Clinical Densitometry Nghia Amaya M.D., CCD. [facility] Radiology Study observation (narrative) [facility] DXA Skeletal system.axial Vi ews for bone densityOrdered By: Nghia Amaya on 07-17-2024 [facility] Work Phone: CNOVon 07-11-2024 CNOV Office Visit (ORHSMN ) ----- KATHRIN BRAVO ([id number]) 1950 F Date Time Provider Department 07/11/24 1:[address] [facility] During your visit today, we recorded the following information about you: Jillian Machuca MD 07/11/2024 1:28 PM Signed [facility] NOTE Department of Orthopaedics Jillian Machuca M.D. NAME: Kathrin Hugo Keny [facility] NO.: [id number] DATE: July 11, 2024 DATE OF SURGERY: January 12, 2024, Revision open reduction and internal fixation of left clavicle fracture with bone grafting, including autologous bone marrow aspiration from the left iliac crest. Ethan returns for routine followup, now 6 months out from surgery. She is doing well with Her range of motion and function. PHYSICAL EXAMINATION: Physical examination today of the left shoulder shows a well-healed incision. Range of motion testing shows passive external rotation at the side to 60-70 degrees. Passive and active forward elevation is to 160-170 degrees. Active internal rotation is to the mid to upper thoracic levels. There is 5/5 strength with resisted external rotation at the side and 5/5 strength with resisted Lam maneuver. There is no pain with these resisted maneuvers. The left upper extremity is otherwise grossly neurovascularly intact to testing. RADIOGRAPHIC STUDIES: X-rays of the left shoulder taken in the office today are available for review and show a total shoulder arthroplasty in unchanged alignment in comparison to prior films. ASSESSMENT: Status post revision open reduction and internal fixation of left clavicle fracture with bone grafting, including autologous bone marrow aspiration from the left iliac crest. PLAN: Ethan is now 6 months out from surgery and doing well. At this point in time, She can use the arm for activities as tolerated, with continued home exercises as needed. she will otherwise follow-up on an as needed basis. She is agreeable with this plan. If any other questions or concerns arise in the interim, She should not hesitate to call. JILLIAN MACHUCA M.D. Allergies As of Date: 07/11/2024 Noted Allergy Reaction EPINEPHRINE 11/09/2023 15 - Contraindication-Medical Aguiar* Comments: increased heart rate FENTANYL 05/20/2022 11 - Vomiting Comments: Patient states she does not do well with narcotics GLUTEN FLOUR 10/21/2014 6 - Diarrhea HYDROCODONE-ACETAMINOPHEN 07/31/2012 8 - GI Upset Comments: All narcotics cause GI upset LACTOSE 02/04/2013 6 - Diarrhea NARCOTICS (OPIOIDS - MORPHINE DWAYNE*01/11/2024 11 - Vomiting NICKEL 02/19/2021 7 - Swelling Comments: Inflammation SOY 10/21/2014 8 - GI Upset SULFASALAZINE 04/08/2013 5 - Intolerance TYMLOS (ABALOPARATIDE) 02/19/2021 14 - Other: See Comments Comments: heart racing ZOFRAN (ONDANSETRON) 12/12/2023 14 - Other: See Comments Comments: Gets a headache from medication Date Reviewed: 07/11/2024 Reviewed by: Kimberly Matute OCCA - Fully Assessed Reason for Visit: Established Patient [175] Follow Up [171] Pain [78] Primary Visit Diagnosis:Status post open reduction and internal fixation (ORIF) of fracture [Z98.890, Z87.81] Prescriptions as of 07/11/2024 - amoxicillin (AMOXIL) 500 mg capsule 500 mg as needed. - acetaminophen (TYLENOL) 325 mg tablet Take 2 tablets by mouth every 6 hours as needed for pain. for pain. - denosumab (PROLIA) 60 mg/mL Inject 60 mg subcutaneously one time only. Every 6 months, last dose 01/09/24 - MEDICATION, NON-DATABASE Flax seed oil - cyclobenzaprine (FLEXERIL) 5 mg tablet Take 5 mg by mouth daily at bedtime. Takes half a tablet - amLODIPine (NORVASC) 5 mg tablet Take 2.5 mg by mouth twice daily. - rosuvastatin (CRESTOR) 5 mg tablet Take 5 mg by mouth once daily. - BILBERRY ORAL Take 60 mg by mouth once daily. - CALCIUM-MAGNESIUM ORAL Take 1 oz by mouth twice daily. - multivitamin tablet Take 0.5 tablets by mouth two times a day. - MEDICATION, NON-DATABASE Take 2 tablets by mouth once daily. Super EFF (Supplement) - glucosamine HCl/chondroitin aguiar (GLUCOSAMINE-CHONDROITIN ORAL) Take 2 oz by mouth once daily. - acidophilus-pectin, citrus 100 million cell-10 mg cap Take 1 capsule by mouth twice daily. Problem List As Of Date 07/11/2024 Noted Resolved Cholecystitis with cholelithiasis [K80.10] 07/31/2012 02/15/2021 Closed nondisplaced fracture of left clavicle w*11/03/2014 Lymphedema, not elsewhere classified [I89.0] 07/24/2015 02/15/2021 HTN (hypertension) [I10] IBS (irritable bowel syndrome) [K58.9] Closed displaced fracture of shaft of left clav*02/19/2021 Shoulder impingement syndrome, left [M75.42] 03/07/2022 Osteopenia [M85.80] 01/11/2023 VHD (valvular heart disease) [I38] 01/11/2023 MVP (mitral valve prolapse) [I34.1] 01/12/2023 Status post open reduction and internal fixatio*11/09/2023 Lipoma of left upper extremi (more content not included)... Normal [facility] XR CLAVICLE 2V LTon 07-11-20 XR CLAVICLE 2V LT * * *Final Report* * * DATE OF EXAM: Jul 11 2024 12:09PM AOX [id number] - XR CLAVICLE 2V LT / PROCEDURE REASON: multiple diagnoses * * * * Physician Interpretation * * * * EXAMINATION / TECHNIQUE: XR CLAVICLE 2V LT PATIENT/TECHNOLOGIST PROVIDED HISTORY: post-op f/u of left clavicle CLINICAL INFORMATION ( PROVIDED BY ORDERING CLINICIAN) : Status post open reduction and internal fixation (ORIF) of fracture COMPARISON: 04/11/2024, 02/21/2024 RESULT: Healed fracture mid left clavicle status post ORIF with plate and screw fixation. Hardware is intact and in unchanged alignment. Additional remote healed fracture involving the distal left clavicle is noted and unchanged. No new fracture. The glenohumeral and acromioclavicular joints are maintained. Focal erosion along the superior margin of the coracoid is related to remote previously removed hardware, unchanged. There are multiple remote healed left-sided rib fractures. IMPRESSION: Healed fracture mid left clavicle status post ORIF with intact hardware Supervisor Chemical: PSCB Transcribe Date/Time: Jul 11 2024 1:07P Dictated by : TAMY BA MD This examination was interpreted and the report reviewed and electronically signed by: SEGUN WHITLEY MD on Jul 11 2024 1:18PM EST [id number] Normal [facility] XR Clavicle - left 2 Viewson 07-11-2024 IMPRESSION: Healed fracture mid left clavicle status post ORIF with intact hardware Supervisor Chemical: PSC Transcribe Date/Time: Jul 11 2024 1:07P Dictated by : TAMY BA MD This examination was interpreted and the report reviewed and electronically signed by: SEGUN WHITLEY MD on Jul 11 2024 1:18PM EST DIVISION OF RADIOLOGY * * *Final Report* * * DATE OF EXAM: Jul 11 2024 12:09PM AOX [id number] - XR CLAVICLE 2V LT / PROCEDURE REASON: multiple diagnoses * * * * Physician Interpretation * * * * EXAMINATION / TECHNIQUE: XR CLAVICLE 2V LT PATIENT/TECHNOLOGIST PROVIDED HISTORY: post-op f/u of left clavicle CLINICAL INFORMATION ( PROVIDED BY ORDERING CLINICIAN) : Status post open reduction and internal fixation (ORIF) of fracture COMPARISON: 04/11/2024, 02/21/2024 RESULT: Healed fracture mid left clavicle status post ORIF with plate and screw fixation. Hardware is intact and in unchanged alignment. Additional remote healed fracture involving the distal left clavicle is noted and unchanged. No new fracture. The glenohumeral and acromioclavicular joints are maintained. Focal erosion along the superior margin of the coracoid is related to remote previously removed hardware, unchanged. There are multiple remote healed left-sided rib fractures. DIVISION OF RADIOLOGY Provider, Nicolle Cervantes [facility] - 07/11/2024 * * *Final Report* * * DATE OF EXAM: Jul 11 2024 12:09PM AOX 5316 - XR CLAVICLE 2V LT / PROCEDURE REASON: multiple diagnoses * * * * Physician Interpretation * * * * EXAMINATION / TECHNIQUE: XR CLAVICLE 2V LT PATIENT/TECHNOLOGIST PROVIDED HISTORY: post-op f/u of left clavicle CLINICAL INFORMATION ( PROVIDED BY ORDERING CLINICIAN) : Status post open reduction and internal fixation (ORIF) of fracture COMPARISON: 04/11/2024, 02/21/2024 RESULT: Healed fracture mid left clavicle status post ORIF with plate and screw fixation. Hardware is intact and in unchanged alignment. Additional remote healed fracture involving the distal left clavicle is noted and unchanged. No new fracture. The glenohumeral and acromioclavicular joints are maintained. Focal erosion along the superior margin of the coracoid is related to remote previously removed hardware, unchanged. There are multiple remote healed left-sided rib fractures. IMPRESSION IMPRESSION: Healed fracture mid left clavicle status post ORIF with intact hardware Supervisor Chemical: OLLIE Transcribe Date/Time: Jul 11 2024 1:07P Dictated by : TAMY BA MD This examination was interpreted and the report reviewed and electronically signed by: SEGUN WHITLEY MD on Jul 11 2024 1:18PM [facility] Radiology Study observation (narrative) [facility] XR Clavicle - left 2 ViewsOr dered By: Ccf Provider on 07-11-2024 [facility] PT D/C Summary (1)on 024 PT D/C Summary (1) [facility] [address] [place] [address] [address] [place] [address] / REHABILITATION SERVICES DISCHARGE SUMMARY MR#: [id number] Acct: [id number] Name: KATHRIN BRAVO Rep #: [id number] : 1950 73 From: Marshall Meredith DPT Referring DrOmar: OUT OF TOWN DOCTOR Status: REG R CR Insurance: [employer] [facility] [employer]URANCE Discharge Summary D/C summary: It has been my pleasure to treat KATHRIN BRAVO referred by JILLIAN MACHUCA, with the diagnosis of L clavicle fracture with ORIF DOS: 01/12/24 for a total of 3 visit(s). Discharge Date: Please see the following information for a summary of their discharge status. Subjective Subjective: Pt. reports overall doing well. Pt. reports no major issues. She has some issues with reaching overhead. She did mention some thumb issues recently. Pain L shoulder: Pain Intensity (Out of 10): 0 Objective Objective/Function: Pt. is overall doing very well. Her ROM is close to full without much issues. She does report some slight tightness with end range ABD, but otherwise normal. MMT: Pt. has full strength in BUEs without issues. She even has decreased L scapular winging noted. Goals Goal 1:: LTG: Pt. to be I with HEP for phase I and II stretching program. Goal 2:: STG: Pt. to have full PROM Of L shoulder without increase in symptoms. Goal 3:: LTG: Pt. to have full AROM of L shoulder without increase in symptoms. Goal 4:: STG: Pt. to have decreased reports of L UT and cervical muscle tension allowing for increased tolerance to all recreational activities. Plan Plan: Pt. is back to all activities without limitations. She does have some soreness with riding her bike for longer periods of time, but other rosales doig great. Pt. will be DC from PT at this point in time. D/C Information d/c sentence: If there are questions or concerns regarding this patient's physical therapy, please feel free to call me at [phone]. Thank you for the referral of this patient. Sincerely, Marshall Meredith, DPT Balance/Gait/Functional tests Balance/Special Test Scores Quick DASH Score: [phone] 07/10/24 0952 CC: Dr. Bessie De Luna MD; JILLIAN MACHUCA CLS Signed Normal [facility] XR Clavicle - left 2 Viewson 04-11-2024 IMPRESSION: Intact postoperative changes. Supervisor Chemical: OLLIE Transcribe Date/Time: Apr 11 2024 10:15A Dictated by : JIM MARK MD This examination was interpreted and the report reviewed and electronically signed by: JIM MARK MD on Apr 11 2024 10:16AM [facility] DIVISION OF RADIOLOGY * * *Final Report* * * DATE OF EXAM: Apr 11 2024 9:42AM AOX 5316 - XR CLAVICLE 2V LT / PROCEDURE REASON: multiple diagnoses * * * * Physician Interpretation * * * * EXAMINATION: XR CLAVICLE 2V LT HISTORY: left clavicle follow up Status post open reduction and internal fixation (ORIF) of fracture Status post open reduction and internal fixation (ORIF) of fracture . TECHNIQUE: XR CLAVICLE 2V LT Laterality: LEFT Number of different views (projections): 2 M: XB_1 COMPARISON: February 21, 2024 RESULT: Plate and screw fixation of the clavicle with intact appearance and anatomic alignment. Maintained glenohumeral and acromioclavicular joints. No acute fracture or dislocation. There are no bony erosions. DIVISION OF RADIOLOGY Provider, [facility] - 04/11/2024 * * *Final Report* * * DATE OF EXAM: Apr 11 2024 9:42AM AOX 5316 - XR CLAVICLE 2V LT / PROCEDURE REASON: multiple diagnoses * * * * Physician Interpretation * * * * EXAMINATION: XR CLAVICLE 2V LT HISTORY: left clavicle follow up Status post open reduction and internal fixation (ORIF) of fracture Status post open reduction and internal fixation (ORIF) of fracture . TECHNIQUE: XR CLAVICLE 2V LT Laterality: LEFT Number of different views (projections): 2 M: XB_1 COMPARISON: February 21, 2024 RESULT: Plate and screw fixation of the clavicle with intact appearance and anatomic alignment. Maintained glenohumeral and acromioclavicular joints. No acute fracture or dislocation. There are no bony erosions. IMPRESSION IMPRESSION: Intact postoperative changes. Supervisor Chemical: OLLIE Transcribe Date/Time: Apr 11 2024 10:15A Dictated by : JIM MARK MD This examination was interpreted and the report reviewed and electronically signed by: JIM MARK MD on Apr 11 2024 10:16AM EST [facility] Radiology Study observation (narrative) [facility] XR Clavicle - left 2 ViewsOr dered By: Ccf Provider on 04-11-2024 [facility] XR Clavicle - left 2 Viewson 02-21-2024 IMPRESSION: Left mid shaft clavicle fracture fixation status post ORIF without hardware complication. 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 Additional remote healed fracture involving the distal clavicle is noted along with ghost tracks from prior hardware. 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 Additional remote healed fracture involving the distal clavicle is noted along with ghost tracks from prior hardware. IMPRESSION IMPRESSION: Left mid shaft clavicle fracture fixation status post ORIF without hardware complication. Supervisor Chemical: OLLIE Transcribe Date/Time: Feb 21 2024 1:58P Dictated by : EDWIN BOWMAN MD This examination was interpreted and the report reviewed and electronically signed by: MARISA GONSALES MD on Feb 21 2024 2:14PM EST [facility] Radiology Study observation (narrative) [facility] XR Clavicle - left 2 ViewsOr dered By: Ccf Provider on 02-21-2024 [facility] XR Clavicle - left 2 Viewson 01-26-2024 [facility] XR CLAVICLE 2V LTon 12-27-19 XR CLAVICLE 2V LT * * *Final Report* * * DATE OF EXAM: Dec 27 2023 2:48PM LDX 5316 - XR CLAVICLE 2V LT / PROCEDURE REASON: Pain * * * * Physician Interpretation * * * * HISTORY: 73-YEAR-OLD FEMALE WITH Pain . patient states multiple fx of the left clavicle with recent romval of a plate and screws of left clavicle. no recent falls or injurys, patient said she put arm over her head and felt pop followed by sharp pain today. TECHNIQUE: XR CLAVICLE 2V LT Laterality: LEFT Number of different views (projections): 2 COMPARISON: 12/12/2023 x-ray and 11/03/2014 x-ray. RESULT: Left clavicle: Bones are osteopenic. There are phantom screw tracks from previous fixation of a mid clavicular fracture. There is now a fracture through the mid clavicle slightly more medial than the original fracture which appears healed possibly through a phantom screw track. The lateral end of the medial fragment is angulated cephalad, overlaps of approximately 11 mm with the diaphysis of the clavicle and is displaced cephalad direction up 9 mm. IMPRESSION: SINCE THE PREVIOUS EXAMINATION THERE IS A NEW LEFT CLAVICULAR FRACTURE MEDIAL TO THE ORIGINAL MID DIAPHYSEAL FRACTURE WITH DISPLACEMENT AND ANGULATION OF THE MEDIAL FRAGMENT. Supervisor Chemical: OLLIE Transcribe Date/Time: Dec 30 2023 3:59P Dictated by : ANKIT MEDRANO MD This examination was interpreted and the report reviewed and electronically signed by: ANKIT MEDRANO MD on Dec 30 2023 4:06PM EST [id number] [facility] ALLIED HEALTHon 12-12-2023 ALLIED HEALTH HNO ID: [id number] Author: CASI JOHNSTON RT(R) Service: Radiology Author Type: Technologist Type: Allied Health Filed: 12/12/2023 10:08 Note Text: Radiology Service Progress Note PATIENT NAME: Kathrin Bravo DATE OF SERVICE: December 12, 2023 TIME: 10:07 AM PATIENT IDENTITY VERIFICATION COMPLETED USING TWO (2) IDENTIFIERS: Name and Date of confirmed by patient verbally and Name and Date of confirmed by identification band. FALL SCREENING: Has the patient had 2 falls in the last year or 1 fall with injury or currently using an Ambulatory Assistive Device (Walker, Cane, Wheelchair, Crutches, etc.)? Inpatient: Screened on floor PATIENT GENDER DATA: Female. status: : No status: NO. PATIENT RELEVANT IMPLANT DATA REVIEWED: Not Applicable PATIENT PRESENTS WITH AN IMPLANTABLE OR ATTACHED MATTRESS MAKER: unknown RADIOLOGY DEPARTMENT: General X-ray: Exam(s) Completed: Upper Extremity X-Ray(s): Clavicle, left PERIPHERAL IV DATA: Not applicable SIGNED BY: RT Matt(R) December 12, 2023 10:07 AM [facility] ANES POSTPROC EVALon 024 ANES POSTPROC EVAL HNO ID: [id number] Author: KARAN BRINK MD Service: Anesthesiology Author Type: Anesthesiologist Type: Anesthesia Postprocedure Evaluation Filed: 12/12/2023 09:50 Note Text: POST ANESTHESIA EVALUATION NOTE : 1950 Procedure Summary Date: 12/12/23 Room / Location: [facility] [place] Anesthesia Start: 728 Anesthesia Stop: 909 Procedure: REMOVAL HARDWARE SHOULDER, REMOVAL OF LIPOMA (Left: Shoulder) Diagnosis: 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 Post Anesthesia Patient Status Patient Evaluation: bedside. Anticipated Disposition: phase 2 then home. Neurological Status: aware and responsive. Pulmonary Status: breathing comfortably on supplemental oxygen Airway Control: returned to baseline unsupported. Cardiovascular Status: stable. Pain Management: clinically adequate Postoperative Hydration: acceptable. Intraoperative Events: no significant anesthesia events Post Operative Nausea/Vomiting Status: no significant post operative nausea or vomiting Recommendation: continue current plan of care. Anesthesia Observations No Documentation SIGNATURE: Karan Brink MD PATIENT NAME: Kathrin Bravo DATE: December 12, 2023 TIME: 9:50 AM CSN: [id number] [facility] ANES PRE-OPon 12-12-2023 ANES PRE-OP HNO ID: [id number] Author: KARAN BRINK MD Service: Anesthesiology Author Type: Anesthesiologist Type: Anesthesia Preprocedure Evaluation Filed: 12/12/2023 07:13 Note Text: ANESTHESIOLOGY DAY OF SURGERY NOTE : 1950 Procedure Information Date/Time: 12/12/23729 Procedure: REMOVAL HARDWARE SHOULDER, REMOVAL OF LIPOMA (Left: Shoulder) - removal of clavicle plate (Acumed plate) and lipoma excision SURGERY: REMOVAL HARDWARE SHOULDER, REMOVAL OF LIPOMA EQUIPMENT - ACUMED CLAVICLE PLATE ROUTE: PACC, LAB, PLEASE SCHEDULE PRE-OP TESTING IN [place] OR SOMEWHERE CLOSE TO HOME IF POSSIBLE PACC QUESTIONNAIRE DONE--YES 2 WEEK F/U with SUSANNAH on 12/26/23 WITHOUT X-RAY 6 WEEK F/U with SUSANNAH on 01/22/24 WITHOUT X-RAY Location: [place] / [place] Surgeons: Jillian Machuca MD Estimated body mass index is 20.43 kg/m? as calculated from the following: Height as of 11/27/23: 155.6 cm (5' 1.25). Weight as of 11/27/23: 49.4 kg (109 lb). Most recent hematocrit and potassium results: Hematocrit 40.8 11/27/2023 Potassium 3.9 11/27/2023 Relevant Problems ANESTHESIA (+) PONV (postoperative nausea and vomiting) CARDIO (+) HTN (hypertension) (+) MVP (mitral valve prolapse) Other (+) Shoulder impingement syndrome, left I - PHYSICAL EVALUATION AIRWAY Patient intubated: No. Tracheostomy tube not present Mallampati: I. TM distance: >3 FB. Neck ROM: full ROM without neurological symptoms. Mouth opening: adequate. Short neck: no. Thick neck: no DENTAL Dental findings: teeth intact. Additional exam findings: yes. CARDIOVASCULAR Rhythm: regular Rate: normal PULMONARY Breath sounds clear to auscultation. Other findings: TIVA No Zofran No narcotics Took care of patient for last surgery and patient did well with this anesthetic plan. II - ANESTHESIA PLAN ASA Score: 2 Anesthetic Plan: general Airway type: LMA The patient is not a current smoker. NPO Status: adequate Beta Jessica Administration of chronic beta jessica medication not planned. Monitoring Plan Monitoring plan: standard ASA. Post Procedure Analgesic Plan Postoperative analgesic plan: parenteral or oral opioids. Informed Consent Anesthetic risks, benefits, alternatives, personnel and consent discussed: yes. Patient / Responsible Libertarian agrees to proceed: yes Patient / Surrogate agrees to blood products: Yes Potential Anesthesia issues that may suggest increased risk of complications or contraindication to planned procedure: none. Discussed the possibility of lip / dental damage: yes Vitals Value Taken Time BP 163/77 12/12/23 0616 Pulse 69 12/12/23 0616 Resp 22 12/12/23 0616 Temp 36.5 ?C (97.7 ?F) 12/12/23 0616 SpO2 97 % 12/12/2316 Facility-Administered Medications as of 12/12/2023 Medication Dose Route Frequency - midazolam (PF) 1 mg injection (VERSED) 1 mg INTRAVENOUS ONCE - lidocaine (PF) 10 mg/mL (1 %) 1-2 mg injection (XYLOCAINE) 0.1-0.2 mL INTRADERMAL PRN - lactated ringers iv infusion 5-30 mL/hr INTRAVENOUS CONTINUOUS - NaCl 0.9% iv flush bag 20 mL INTRAVENOUS PRN - ceFAZolin iv piggyback 2 g in D5W (iso-osmotic) 100 mL (ANCEF) 2 g INTRAVENOUS Slot Floorperson to OR - acetaminophen 1,000 mg tab(s) (TYLENOL) 1,000 mg ORAL Pre-Op Once - scopolamine 1 mg over 3 days 1 Patch (TRANSDERM-SCOP) 1 Patch TRANSDERMAL q 72 HR And - [START ON 12/15/2023] scopolamine - REMOVE PATCH OTHER q 72 HR And - scopolamine - VERIFY patch OTHER q 8 H - promethazine 12.5 mg tab(s) (PHENERGAN) 12.5 mg ORAL ONCE Outpatient Medications as of 12/12/2023 Medication Sig - cyclobenzaprine (FLEXERIL) 5 mg tablet Take 5 mg by mouth daily at bedtime. Takes half a tablet - amLODIPine (NORVASC) 5 mg tablet Take 2.5 mg by mouth twice daily. - rosuvastatin (CRESTOR) 5 mg tablet Take 5 mg by mouth once daily. - oxyCODONE IR (ROXICODONE) 5 mg immediate release tablet Take 1 tablet by mouth every 6 hours as needed for pain for up to 7 days. for pain. - docusate sodium (COLACE) 100 mg capsule Take 1 capsule by mouth two times a day. - BILBERRY ORAL Take 60 mg by mouth once daily. - CALCIUM-MAGNESIUM ORAL Take 1 oz by mouth twice daily. - multivitamin tablet Take 0.5 tablets by mouth twice daily. - MEDICATION, NON-DATABASE Take 2 tablets by mouth once daily. Super EFF (Supplement) - glucosamine HCl/chondroitin aguiar (GLUCOSAMINE-CHONDROITIN ORAL) Take 2 oz by mouth once daily. - acidophilus-pectin, citrus 100 million cell-10 mg cap Take 1 capsule by mouth twice daily. I have interviewed and examined the patient. I have reviewed the medical record and/or the pre-anesthesia evaluation, pertinent labs, and test results. This contains updated information obtained within 48 hours of Surgery/Procedure. SIGNATURE: Karan Brink MD PATIENT NAME: Kathrin Bravo DATE: December 12, 2023 TIME: 7:02 AM CSN: [id number] [facility] HISTORY PHYSICALon 4 HISTORY PHYSICAL HNO ID: [id number] Author: PIPPA GUERIN PA-C Service: Orthopaedic Surgery Author Type: Physician Student Career Development Specialist Type: H&P Filed: 12/12/2023 07:14 Note Text: UPDATED HISTORY AND PHYSICAL EXAMINATION SERVICE DATE: 12/12/2023 SERVICE TIME: 7:12 AM PHYSICAL EXAM MUST BE COMPLETED ON ADMISSION The History and Physical (completed in the past 30 days) has been reviewed and the patient has been examined. The contents accurately reflect the patient's condition with the following additions or revisions since the HANDP was completed. PHYSICAL EXAM: Patient Vitals for the past 24 hrs: BP Temp Temp src Pulse Resp SpO2 12/12/23 0616 163/77 36.5 ?C (97.7 ?F) Oral 69 22 97 % GENERAL: Alert, no distress, cooperative LUNGS:Lungs clear to auscultation, Good diaphragmatic excursion CARDIAC:Normal S1 and S2; no rubs, murmurs, or gallops This HANDP can be found in the Electronic Medical Record dated 11/27/23. SIGNATURE: Pippa Guerin PA-C PATIENT NAME: Kathrin Bravo DATE: 12/12/2023 TIME: 7:12 AM PAGER: [facility] NURSING PROGon 12-12-2023 NURSING PROG HNO ID: [id number] Author: MIKE DE LA CRUZ RN Service: ? Author Type: Registered Nurse Type: Nursing Progress Note Filed: 12/12/2023 10:46 Note Text: 0956- Pt received to phase 2 at this time, bedside report received from Jaja Walker RN. Pt awake and alert with no distress noted. Island dressing x 2 dry and intact to left shoulder, no drainage noted. Sling and ice pack in place for pt comfort. Pt reports full feeling to LUE, gross movement noted. Rates burning pain 4/10, denies need for pain meds at this time. 1045- Pt up to bathroom to void with steady gait. Denies dizziness with ambulation. [facility] NURSING PROG HNO ID: [id number] Author: KAHLIL WALKER RN Service: ? Author Type: Registered Nurse Type: Nursing Progress Note Filed: 12/12/2023 09:47 Note Text: Other: 0903- Patient arrived from OR sedated but arouses to verbal stimuli. Left shoulder 2 surgical dressings CDI. Vitals stable. See emr. Pt. States pain is 5/10. Refusing pain meds. Family updated. Ice applied to left shoulder. Shoulder sling in place. 0947- Xray being performed. Pt. Declined visit from spouse at this time. Spouse updated. [facility] OPERATIVE NOon 12-12-2023 OPERATIVE NO HNO ID: [id number] Author: JILLIAN MACHUCA MD Service: Orthopaedic Surgery Author Type: Physician Type: Operative Report Filed: 12/17/2023 11:50 Note Text: [place] [address] [place] OPERATIVE REPORT NAME: Kathrin Hugo [facility] #: [id number] DATE: 12/12/2023 (8:06am-8:54am) AGE: 73 SURGEON 1: Jillian Machuca M.D. [place] OPERATOR: 1. Miguel Angel Vyas M.D. 2. Rg Gaona (No qualified resident was available to assist with the case). OPERATION: Left clavicle removal of hardware, left upper arm subcutaneous lipoma excision ANESTHESIA: General anesthesia. PREOPERATIVE DIAGNOSIS: Status post open reduction and internal fixation of left clavicle fracture with symptomatic hardware, left arm subcutaneous lipoma. POSTOPERATIVE DIAGNOSIS: Status post open reduction and internal fixation of left clavicle fracture with symptomatic hardware, left arm subcutaneous lipoma. OPERATIVE INDICATIONS: The patient is a 73 year [id number] right-hand dominant female who underwent revision open reduction and internal fixation of a left clavicle fracture nonunion with bone grafting by myself on February 19, 2021. She recovered good strength and function after the surgery but has developed persistent pain complaints related to symptomatic hardware. She underwent removal of a prominent screw on January 23, 2023 but has continued to have persistent pain complaints. In addition, she has developed more persistent pain complaints related to a subcutaneous lipoma along the lateral aspect of the upper arm. More recent imaging, including CT has shown evidence of healing of the fracture and MRI of the left shoulder shows the subcutaneous mass to be consistent with a lipoma. Based on these findings, discussion was had regarding repeat surgical intervention in the form of removal of the rest of the clavicular screws and plate, as well as excision of the subcutaneous lipoma. The risks and benefits of the surgery, as well as the expected postoperative course were discussed with the patient at length. The patient understood the risks and benefits, and wished to proceed with the operation. OPERATIVE FINDINGS: The clavicle plate and screws were removed without difficulty and fluoroscopic imaging confirmed complete removal of the hardware. The subcutaneous lipoma was excised and sent to pathology. OPERATIVE PROCEDURE: On the day of surgery, the patient was seen in the preoperative area. The planned surgical procedure and the correct surgical site were again reviewed with the patient and the left upper extremity was marked. Preoperative antibiotics were given. The patient was then taken back to the operating room and placed under general anesthesia with an LMA. She was placed in the beach chair position, and the left upper extremity was prepped and draped in the usual sterile fashion. An incision was then made along the clavicle over the clavicular plate, utilizing the patient's prior incision. The incision was carried down to the level of the fascia and the clavicle plate was identified. The fascia was opened directly over the lateral aspect of the clavicle plate. The clavicle screws and plate were removed without difficulty and the screw holes were debrided of fibrous tissue. There was no mobility at the fracture site with the clavicle moving as one unit. Fluoroscopic imaging was brought in to confirm removal of the hardware. Attention was then turned to the lateral aspect of the upper arm over the subcutaneous lipoma. A longitudinal incision was made directly over the mass and subcutaneous dissection was taken circumferentially around the lipoma. The lipoma was removed and measured approximately 2.8 x 2 x 1.2 cm and was sent for pathology. The wounds were of both incisions then copiously irrigated. Local anesthetic was injected along the skin edges. The fascial layer along the clavicle was then closed using interrupted 2-0 Vicryl stitches. This did nicely cover the bone. The subcutaneous layer of both incisions was then closed with 2-0 Vicryl interrupted stitches. A running 3-0 Monocryl stitch was used to close the skin of both incisions. Steri-Strips were placed over the incision sites, and the wounds were sterilely dressed. The arm was then placed in a sling. The patient was awoken without complications. She was transferred to the PACU in stable condition. Closing of the incisions were performed by Miguel Angel Vyas M.D., and Rg Gaona, with the primary surgeon (Jillian Machuca M.D.) readily available. The remainder of the procedure, including all critical elements, was completed by the primary surgeon (Jillian Machuca M.D.) with assistance from Miguel Angel Vyas M.D., and Rg Gaona ESTIMATED BLOOD LOSS: 10 cc DRAINS: none SPECIMENS: Subcutaneous lipoma sent to pathology COMPLICATIONS: none apparent Jillian Machuca M.D. [facility] SURGICAL PATHOLOGYon 024 CASE REPORT [facility] Comment on above: Order Comment: Nicole adam Type: TISSUE SPECIMENOrdering Facility: [facility] Address: [address] [place] [address] Result Comment: Surg ica Pathology Report Case: [id number] Authorizing Provider: Jillian Machuca MD Collected: 12/12/2023 07:47 AM Ordering Location: [facility] Received: 12/12/2023 09:25 AM Pathologist: Lluvia Kimble MD Specimen: LIPOMA, lipoma left shoulder Performed By: #### S ####[facility] LABCLIA [id number] [address] [place] CLINICAL HISTORY [facility] Comment on above: Order Comment: Nicole adam Type: TISSUE SPECIMENOrdering Facility: [facility] Address: [address] [place] [address] Result Comment: Pre- op diagnosis: Lipoma of left upper extremity [D17.22] 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 Performed By: #### S ####[facility] LABCLIA [id number] [place] [address] [place] FINAL PERFORMING LAB [facility] Comment on above: Order Comment: Speci men Type: TISSUE SPECIMENOrdering Facility: [facility] Address: [address] [place] [address] Result Comment: Diag nostic interpretation performed at [facility], [address] [place] [address] CLIA# [id number] Program Medical Director: Jonathan House M.D. Performed By: #### S ####[facility] LABCLIA [id number] [address] [place] GROSS DESCRIPTION A. LIPOMA Normal [facility] Comment on above: Order Comment: Speci men Type: TISSUE SPECIMENOrdering Facility: [facility] Address: [address] [place] [address] Result Comment: Rece ived in formalin labeled as lipoma left shoulder, is a segment of krishna soft tissue measuring 2.8 x 2 x 1.2 cm. Serially sectioning demonstrates yellow-krishna, soft glistening cut surfaces. Venetian Blind Machine Operator sections are submitted in A1. [place] December 12, 2023 2:09 PM Gross examination performed at [facility], [address] [place] [address] CLIA# [id number] Performed By: #### S ####[facility] LABCLIA [id number] [place] [address] [place] XR CLAVICLE 2V LTon 12-12-19 24 XR CLAVICLE 2V LT * * *Final Report* * * DATE OF EXAM: Dec 12 2023 10:06AM MYX 5316 - XR CLAVICLE 2V LT / PROCEDURE REASON: Post-operative / post-procedure assessment, asymptomatic * * * * Physician Interpretation * * * * EXAMINATION / TECHNIQUE: XR CLAVICLE 2V LT ACCESSION NUMBER: [id number] HISTORY: Hardware removal left clavicle, images taken in PACU after Post-operative / post-procedure assessment, asymptomatic. COMPARISON: 08/10/2023 2 views of the left clavicle were performed. FINDINGS: See impression IMPRESSION: Posttraumatic deformity left clavicle from remote healed fracture present with ghost screw holes status post recent hardware removal. Soft tissue gas within the left supraclavicular soft tissues compatible with recent surgery. Supervisor Chemical: [facility] Transcribe Date/Time: Dec 12 2023 11:49A Dictated by : MONSE BUCK MD This examination was interpreted and the report reviewed and electronically signed by: MONSE BUCK MD on Dec 12 2023 11:51AM EST [id number] [facility] XR CLAVICLE 2V LT * * *Final Report* * * DATE OF EXAM: Dec 12 2023 10:06AM MYR 5316 - XR CLAVICLE 2V LT / PROCEDURE REASON: Post-operative / post-procedure assessment, asymptomatic * * * * Physician Interpretation * * * * INTRAOPERATIVE FLUOROSCOPY HISTORY: Post-operative / post-procedure assessment, asymptomatic COMPARISON: None TECHNIQUE: Fluoroscopic imaging was provided for procedure localization. Fluoroscopic Radiation Summary: Plane A, Air Kerma: 0.1 mGy Dose Area Product (DAP): Fluoro time: 0:02 min:sec RESULT: See impression IMPRESSION: Fluoroscopy was used in the operating room for procedural guidance during left clavicular hardware removal. 2 portable fluoroscopic spot films were obtained. Study was performed by Dr. JILLIAN MACHUCA. Recommend correlation with real-time interoperative findings and procedure note. Supervisor Chemical: [facility] Transcribe Date/Time: Dec 12 2023 11:51A Dictated by : MONSE BUCK MD This examination was interpreted and the report reviewed and electronically signed by: MONSE BUCK MD on Dec 12 2023 11:51AM EST [id number] [facility] Anaerobic & Aerobic Culture ([id number])Ordered By: New Home Sales Consultant on 08-08-2023 Bacteria identified Aer cx Nom (Unsp spec) Final report Normal [facility]; [facility] Work Phone: Comment on above: PERFORMED BY: [employer] [id number] [facility] [id number] BY: [address] [id number] Information: SRC:MIRTA [id number] Bacteria identified Anaer cx Nom (Unsp spec) Final report Abnormal [facility]; [facility] Work Phone: Comment on above: PERFORMED BY: [id number] [facility] [id number] BY: [address] [id number] Information: SRC:MIRTA [id number] Bacteria identified Cx Nom (Unsp spec) Cutibacterium acnes Abnormal Comprehen sive [facility] Medicine; [facility] Work Phone: Comment on above: Light growth PERFORMED BY: [address] [id number] BY: [address] [id number] Information: SRC:MIRTA [id number] Bacteria identified Cx Nom (Unsp spec) Mixed skin trenton Normal Comprehensiv e Internal Medicine; [facility] Work Phone: Comment on above: PERFORMED BY: [email or web address] [facility] [id number] BY: [address] [id number] Information: SRC:MIRTA [id number] CULTURE, VIRUS GENERAL 7590 ([id number])Ordered By: New Home Sales Consultant on 08-08-2023 Virus identified Cx Nom (Unsp spec) No virus isolated. Normal [facility]; [facility] Work Phone: Comment on above: PERFORMED BY: [employer] [address] [id number] BY: [address] [id number] XR Thoracic spine 2 Viewson 06-08-2023 IMPRESSION: Mild sigmoid scoliosis. Degenerative disc disease, most severe within midthoracic spine. OLOGY EXAM: XR SPINE THORA CIC 2 VIEWS , 06/08/2023 12:26 PM COMPARISON: 12/08/2016 CLINICAL INDICATIONS: osteoporosis, height loss, pain around T10 - evaluate for compression fracture RELEVANT CLINICAL HISTORY: M81.0:Senile osteoporosis Z78.0:Menopause FINDINGS: 2 images obtained. Vertebral: There are 12 rib bearing vertebral bodies in anatomic alignment. Levoscoliosis of upper/mid thoracic spine measuring 12 degrees and dextroscoliosis of mid/lower thoracic spine measuring 12 degrees is present. No compression deformity. Disc: Multilevel degenerative disc disease. Severe changes at the upper and midthoracic spine, most pronounced at T5/T6 through T8/T9. RADIOLOGY Jessica Dang MD - 06/08/2023 EXAM: XR SPINE THORACIC 2 VIEWS , 06/08/2023 12:26 PM COMPARISON: 12/08/2016 CLINICAL INDICATIONS: osteoporosis, height loss, pain around T10 - evaluate for compression fracture RELEVANT CLINICAL HISTORY: M81.0:Senile osteoporosis Z78.0:Menopause FINDINGS: 2 images obtained. Vertebral: There are 12 rib bearing vertebral bodies in anatomic alignment. Levoscoliosis of upper/mid thoracic spine measuring 12 degrees and dextroscoliosis of mid/lower thoracic spine measuring 12 degrees is present. No compression deformity. Disc: Multilevel degenerative disc disease. Severe changes at the upper and midthoracic spine, most pronounced at T5/T6 through T8/T9. IMPRESSION IMPRESSION: Mild sigmoid scoliosis. Degenerative disc disease, most severe within midthoracic spine. [facility] Radiology Study observation (narrative) [facility] XR Thoracic spine 2 ViewsOrd ered By: Jessica Dang on 06-08-2023 [facility] Work Phone: CNOVon 05-15-2023 CNOV Office Visit ([facility]) ----- KATHRIN BRAVO ([id number]) 1950 F Date Time Provider Department 05/15/23 8:40 AM SASHA ESPINO During your visit today, we recorded the following information about you: Sasha Espino PA-C 05/15/2023 9:34 AM Addendum [facility] NOTE Department of Orthopaedics Jillian Machuca M.D. NAME: Kathrin Hugo Keny [facility] NO.: [id number] DATE: May 15, 2023 DATE OF SURGERY: January 23, 2023, revision screw fixation of the left clavicle fracture Kathrin returns for routine followup, now 3 months out from surgery. She is making good progress with shoulder range of motion and function. She has pain with cross body motion. She had difficulty gardening pulling out weeds. States this went on for a period of time and then the pain eased up. She actually feels the pain is in the shoulder. States she was living on Tylenol AND Ibuprofen. She had a massage in March and noted a great deal of pain in her shoulder blade.Denies any distal paresthesias. She has difficulty raising a shirt off overhead. She was able to ride her bike with no great deal of pain PHYSICAL EXAMINATION: Physical examination today of the left clavicle shows a well-healed incision. Range of motion testing shows supine passive external rotation at the side to 60 degrees. Supine passive forward elevation is to 160 degrees. Active forward elevation is to 160 degrees, with active internal rotation to the mid thoracic levels. There is 5/5 strength with resisted external rotation at the side and 5/5 strength with resisted Lam maneuver. The left upper extremity is otherwise grossly neurovascularly intact to testing. RADIOGRAPHIC STUDIES: CAT scan of the left shoulder from May 08, [address] Shoulder - Impression Only CT SHOULDER WO IVCON LEFT Exam End: 05/08/2023 7:52 AM (Final result) Impression: IMPRESSION: No apparent change in the appearance of the clavicle or associated hardware is seen. Supervisor Chemical: [employer] Transcribe Date/Time: May 09 2023 10:49A ... 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 Radiographic correlation may be performed, as clinically indicated. ASSESSMENT: Status post revision screw fixation of the left clavicle fracture PLAN: Kathrin is now 3 months out from surgery and progressing well. We will advance into both range of motion and strengthening exercises. She is comfortable continuing this as a home routine. Her lifting restriction at this point in time should be 10 pounds or less on this side. she will otherwise follow-up in 3-months' time for a 6-month postoperative visit. We will obtain new x-rays at that time. She is agreeable with this plan. If any other questions or concerns arise in the interim, She should not hesitate to call. ELICEO Frazier Allyson L, PA-C 05/15/2023 9:36 AM Signed Addended by: SASHA ESPINO on: 05/15/2023 09:36 AM Modules accepted: Orders Allergies As of Date: 05/15/2023 Noted Allergy Reaction FENTANYL 05/20/2022 11 - Vomiting Comments: Patient states she does not do well with narcotics GLUTEN FLOUR 10/21/2014 6 - Diarrhea HYDROCODONE-ACETAMINOPHEN 07/31/2012 8 - GI Upset Comments: All narcotics cause GI upset LACTOSE 02/04/2013 6 - Diarrhea NICKEL 02/19/2021 7 - Swelling Comments: Inflammation SOY 10/21/2014 8 - GI Upset SULFASALAZINE 04/08/2013 5 - Intolerance TYMLOS (ABALOPARATIDE) 02/19/2021 14 - Other: See Comments Comments: heart racing Date Reviewed: 05/15/2023 Reviewed by: Vesta Santos MA - Fully Assessed Reason for Visit: New [232361] Fracture [4131] Primary Visit Diagnosis:History of removal of retained hardware [Z98.890] Other Visit Diagnosis:Chronic left shoulder pain [M25.512, G89.29] Order(s):XR CLAVICLE 2V LEFT [[id number]] Order #: [id number] FUTURE Prescriptions as of 08/11/2023 - aspirin, enteric coated (ECOTRIN LOW STRENGTH) 81 mg EC tablet Take 1 tablet by mouth twice daily for 14 days. - amLODIPine (NORVASC) 5 mg tablet Take 2.5 mg by mouth twice daily. - denosumab (PROLIA) 60 mg/mL 1 mg. - rosuvastatin (CRESTOR) 5 mg tablet Take 5 mg by mouth once daily. - BILBERRY ORAL Take 60 mg by mouth once daily. - cholecalciferol, vitamin D3, (VITAMIN D3 ORAL) Take 1,000 Units by mouth four times a week. - CALCIUM-MAGNESIUM ORAL Take 1 oz by mouth twice daily. - multivitamin tablet Take 0.5 tablets by mouth twice daily. - MEDICATION, NON-DATABASE Take 2 tablets by mouth once daily. Super EFF (Supplement) - glucosamine HCl/chondroitin aguiar (GLUCOSAMINE-CHONDROITIN ORAL) Take 2 oz by mouth once daily. - acidophilus-pectin, citrus 100 million cell-10 mg cap Take 1 capsule by mouth twi (more content not included)... [facility] HEALTHon 05-08-2023 ALLIED HEALTH HNO ID: [id number] Author: Anabela May CT Service: Radiology Author Type: Technologist Type: [facility] Filed: 05/08/2023 7:45 AM Note Text: Radiology Service Progress Note PATIENT NAME: Kathrin Bravo DATE OF SERVICE: May 08, 2023 TIME: 7:45 AM PATIENT IDENTITY VERIFICATION COMPLETED USING TWO (2) IDENTIFIERS: Name and Date of confirmed by patient verbally and Name and Date of confirmed by identification band. FALL SCREENING: Has the patient had 2 falls in the last year or 1 fall with injury or currently using an Ambulatory Assistive Device (Walker, Cane, Wheelchair, Crutches, etc.)? No PATIENT GENDER DATA: Female. status: : No status: NO. 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 No new injury. History of prior clavicle fracture. COMPARISON: Left clavicle radiographs, the most recent 03/06/2023, and CT left shoulder 10/13/2022. Healing/healed fixated left mid clavicle fracture with unaltered alignment of fixation hardware. The most lateral fixation screw is again seen to breech inferior clavicular cortex occupying the acromioclavicular space with unchanged mechanical erosion at the coracoid process. No new fracture deformity or periprosthetic lucency. IMPRESSION: No acute radiographic abnormality to comparison 03/06/2023. Supervisor Chemical: [facility] Transcribe Date/Time: Apr 04 2023 7:46A Dictated by : ERIC GHOTRA MD This examination was interpreted and the report reviewed and electronically signed by: ERIC GHOTRA MD on Apr 04 2023 7:57AM EST [id number] Normal [facility] XR Clavicle - left 2 Viewson 03-08-2023 IMPRESSION: Healing fixated left clavicle fracture. Transcribed Using Voice Recognition Transcribe Date/Time: Mar 08 2023 3:22P Dictated by: ADELITA CARMONA DO This examination was interpreted and the report reviewed and electronically signed by: ADELITA CARMONA DO on Mar 08 2023 3:29PM [facility] RADIOLOGY * * *Final Report* * * DATE OF EXAM: Mar 06 2023 10:19AM HMX 5316 - XR CLAVICLE 2V LT / PROCEDURE REASON: History of removal of retained hardware * * * * Physician Interpretation * * * * RESULT: EXAMINATION: XR CLAVICLE 2V LT PATIENT/TECHNOLOGIST PROVIDED HISTORY: PT STATES FU LT CLAVICLE CLINICAL INFORMATION: History of removal of retained hardware TECHNIQUE: Left clavicle, 2 views COMPARISON: 02/14/2022 RESULT: Healing fixated left clavicle fracture with interval callus formation/maturation. No significant change in alignment. The most lateral clavicle fixation screw is slightly smaller when compared to the screw in place on 02/14/2022, relating to interval screw exchange since prior radiographs. There now appears to be slight gap between the tip of the lateral most fixation screw and the coracoid. Remainder of the hardware is without evidence for migration. No periprosthetic lucency identified. Hardware is intact. No new fracture. No dislocation. [facility] RADIOLOGY Provider, [facility] - 03/08/2023 * * *Final Report* * * DATE OF EXAM: Mar 06 2023 10:19AM HMX 5316 - XR CLAVICLE 2V LT / PROCEDURE REASON: History of removal of retained hardware * * * * Physician Interpretation * * * * RESULT: EXAMINATION: XR CLAVICLE 2V LT PATIENT/TECHNOLOGIST PROVIDED HISTORY: PT STATES FU LT CLAVICLE CLINICAL INFORMATION: History of removal of retained hardware TECHNIQUE: Left clavicle, 2 views COMPARISON: 02/14/2022 RESULT: Healing fixated left clavicle fracture with interval callus formation/maturation. No significant change in alignment. The most lateral clavicle fixation screw is slightly smaller when compared to the screw in place on 02/14/2022, relating to interval screw exchange since prior radiographs. There now appears to be slight gap between the tip of the lateral most fixation screw and the coracoid. Remainder of the hardware is without evidence for migration. No periprosthetic lucency identified. Hardware is intact. No new fracture. No dislocation. IMPRESSION IMPRESSION: Healing fixated left clavicle fracture. Transcribed Using Voice Recognition Transcribe Date/Time: Mar 08 2023 3:22P Dictated by: ADELITA CARMONA DO This examination was interpreted and the report reviewed and electronically signed by: ADELITA CARMONA DO on Mar 08 2023 3:29PM [facility] XR Clavicle - left 2 ViewsOr dered By: Cc Provider on 03-08-2023 [facility] XR CLAVICLE 2V LTon 03-06-20 23 XR CLAVICLE 2V LT * * *Final Report* * * DATE OF EXAM: Mar 06 2023 10:19AM HMX 5316 - XR CLAVICLE 2V LT / PROCEDURE REASON: History of removal of retained hardware * * * * Physician Interpretation * * * * RESULT: EXAMINATION: XR CLAVICLE 2V LT PATIENT/TECHNOLOGIST PROVIDED HISTORY: PT STATES FU LT CLAVICLE CLINICAL INFORMATION: History of removal of retained hardware TECHNIQUE: Left clavicle, 2 views COMPARISON: 02/14/2022 RESULT: Healing fixated left clavicle fracture with interval callus formation/maturation. No significant change in alignment. The most lateral clavicle fixation screw is slightly smaller when compared to the screw in place on 02/14/2022, relating to interval screw exchange since prior radiographs. There now appears to be slight gap between the tip of the lateral most fixation screw and the coracoid. Remainder of the hardware is without evidence for migration. No periprosthetic lucency identified. Hardware is intact. No new fracture. No dislocation. IMPRESSION: Healing fixated left clavicle fracture. Transcribed Using Voice Recognition Transcribe Date/Time: Mar 08 2023 3:22P Dictated by: ADELITA CARMONA DO This examination was interpreted and the report reviewed and electronically signed by: ADELITA CARMONA DO on Mar 08 2023 3:29PM EST [id number] [facility] XR Clavicle - left 2 Viewson 03-06-2023 Radiology Study observation (narrative) [facility] ANES POSTPROC EVALon 023 ANES POSTPROC EVAL HNO ID: [id number] Author: Karan Brink MD Service: Anesthesiology Author Type: Anesthesiologist Type: Anesthesia Postprocedure Evaluation Filed: 01/23/2023 10:06 AM Note Text: POST ANESTHESIA EVALUATION NOTE : 1950 Procedure Summary Date: 01/23/23 Room / Location: [place] [address] / OR Anesthesia Start: 734 Anesthesia Stop: 912 Procedure: LEFT SHOULDER REMOVAL OF HARDWARE WITH SCREW REVISION (Left: Shoulder) Diagnosis: 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 Post Anesthesia Patient Status Patient Evaluation: bedside. Anticipated Disposition: phase 2 then home. Neurological Status: aware and responsive. Pulmonary Status: breathing comfortably on room air Airway Control: returned to baseline unsupported. Cardiovascular Status: stable. Pain Management: clinically adequate Postoperative Hydration: acceptable. Intraoperative Events: no significant anesthesia events Post Operative Nausea/Vomiting Status: no significant post operative nausea or vomiting Recommendation: continue current plan of care. Anesthesia Observations No Documentation SIGNATURE: Karan Brink MD PATIENT NAME: Kathrin Bravo DATE: January 23, 2023 TIME: 10:06 AM CSN: [id number] [facility] ANES PRE-OPon 01-23-2023 ANES PRE-OP HNO ID: [id number] Author: Karan Brink MD Service: Anesthesiology Author Type: Anesthesiologist Type: Anesthesia Preprocedure Evaluation Filed: 01/23/2023 7:03 AM Note Text: ANESTHESIOLOGY DAY OF SURGERY NOTE : 1950 Procedure Information Date/Time: 01/23/2335 Procedure: LEFT SHOULDER REMOVAL OF HARDWARE WITH SCREW REVISION (Left: Shoulder) - SURGERY: LEFT SHOULDER REMOVAL OF HARDWARE WITH SCREW REVISION EQUIPMENT - ACUMED TITANIUM CLAVICLE PLATE Location: EU OR09 / [facility] OR Surgeons: Jillian Machuca MD Estimated body mass index is 20.26 kg/m? as calculated from the following: Height as of 01/11/23: 156.2 cm (5' 1.5). Weight as of 01/11/23: 49.4 kg (109 lb). Most recent hematocrit and potassium results: Hematocrit 39.8 01/11/2023 Potassium 4.3 01/11/2023 Relevant Problems CARDIO (+) HTN (hypertension) (+) MVP (mitral valve prolapse) Other (+) Shoulder impingement syndrome, left I - PHYSICAL EVALUATION AIRWAY Patient intubated: No. Tracheostomy tube not present Mallampati: II. TM distance: >3 FB. Neck ROM: full ROM without neurological symptoms. Mouth opening: adequate. Short neck: no. Thick neck: no DENTAL Dental findings: teeth intact. Additional exam findings: yes. CARDIOVASCULAR Rhythm: regular Rate: normal PULMONARY Breath sounds clear to auscultation. Other findings: TIVA No narcotic per patient No Zofran per patient. II - ANESTHESIA PLAN ASA Score: 2 Anesthetic Plan: general Airway type: LMA The patient is not a current smoker. NPO Status: adequate Beta Jessica Administration of chronic beta jessica medication not planned. Monitoring Plan Monitoring plan: standard ASA. Post Procedure Analgesic Plan Postoperative analgesic plan: parenteral or oral opioids. Informed Consent Anesthetic risks, benefits, alternatives, personnel and consent discussed: yes. Patient / Responsible Libertarian agrees to proceed: yes Patient / Surrogate agrees to blood products: Yes Potential Anesthesia issues that may suggest increased risk of complications or contraindication to planned procedure: none. Vitals Value Taken Time BP 142/73 01/23/23 0539 Pulse 73 01/23/23 0558 Resp 16 01/23/23 0539 Temp 36.4 ?C (97.5 ?F) 01/23/23 0539 SpO2 98 % 01/23/23 0551 Vitals shown include unvalidated device data. Facility-Administered Medications as of 01/23/2023 Medication Dose Route Frequency - lidocaine (PF) 10 mg/mL (1 %) 1-2 mg injection (XYLOCAINE) 0.1-0.2 mL INTRADERMAL PRN - lactated ringers iv infusion 5-30 mL/hr INTRAVENOUS CONTINUOUS - NaCl 0.9% iv flush bag 20 mL INTRAVENOUS PRN - ceFAZolin iv piggyback 2 g in D5W (iso-osmotic) 100 mL (ANCEF) 2 g INTRAVENOUS Pre-Op Once - [COMPLETED] acetaminophen 1,000 mg tab(s) (TYLENOL) 1,000 mg ORAL ONCE - scopolamine 1 mg over 3 days 1 Patch (TRANSDERM-SCOP) 1 Patch TRANSDERMAL q 72 HR And - [START ON 01/26/2023] scopolamine - REMOVE PATCH OTHER q 72 HR And - scopolamine - VERIFY patch OTHER q 8 H - promethazine 12.5 mg tab(s) (PHENERGAN) 12.5 mg ORAL NOW Outpatient Medications as of 01/23/2023 Medication Sig - amLODIPine (NORVASC) 5 mg tablet Take 2.5 mg by mouth twice daily. - rosuvastatin (CRESTOR) 5 mg tablet Take 5 mg by mouth once daily. - BILBERRY ORAL Take 60 mg by mouth once daily. - cholecalciferol, vitamin D3, (VITAMIN D3 ORAL) Take 1,000 Units by mouth four times a week. - CALCIUM-MAGNESIUM ORAL Take 1 oz by mouth twice daily. - glucosamine HCl/chondroitin aguiar (GLUCOSAMINE-CHONDROITIN ORAL) Take 2 oz by mouth once daily. - aspirin, enteric coated (ECOTRIN LOW STRENGTH) 81 mg EC tablet Take 1 tablet by mouth twice daily for 14 days. - docusate sodium (COLACE) 100 mg capsule Take 1 capsule by mouth twice daily for 14 days. - oxyCODONE IR (ROXICODONE) 5 mg immediate release tablet Take 1 tablet by mouth every 6 hours as needed for pain for up to 7 days. - acetaminophen (TYLENOL EXTRA STRENGTH) 500 mg tablet Take 2 tablets by mouth every 6 hours as needed for pain for up to 14 days. - denosumab (PROLIA) 60 mg/mL 1 mg. - multivitamin tablet Take 0.5 tablets by mouth twice daily. - MEDICATION, NON-DATABASE Take 2 tablets by mouth once daily. Super EFF (Supplement) - acidophilus-pectin, citrus 100 million cell-10 mg cap Take 1 capsule by mouth twice daily. I have interviewed and examined the patient. I have reviewed the medical record and/or the pre-anesthesia evaluation, pertinent labs, and test results. This contains updated information obtained within 48 hours of Surgery/Procedure. SIGNATURE: Karan Brink MD PATIENT NAME: Kathrin Bravo DATE: January 23, 2023 TIME: 7:02 AM CSN: [id number] [facility] BRIEF OP NOTon 01-23-2023 BRIEF OP NOT HNO ID: [id number] Author: Donald Crowell MD Service: Orthopaedic Surgery Author Type: Resident Type: Brief Op Note Filed: 01/23/2023 9:03 AM Note Text: BRIEF OP NOTE LOG ID: [id number] Surgery/Procedure Date: 01/23/2023 Incision/Procedure Start Time: 8:19 AM Incision Close/Procedure End Time: 8:55 AM Surgeon(s)/Proceduralist( s) and Student Career Development Specialist(s): Surgeon(s) and Role: * Jillian Machuca MD - Primary * Donald Crowell MD - Resident - Assisting * Haile Olson MD - Fellow Procedure(s): Procedure(s) (LRB): LEFT SHOULDER REMOVAL OF HARDWARE WITH SCREW REVISION (Left) Anesthesia: General Estimated Blood Loss: 5 mls Specimens: ID Type Source Tests Collected by Time Destination A : Left Clavicle Screw Hardware HARDWARE SURGICAL PATHOLOGY Jillian Machuca MD 01/23/2023 8:45 AM Complications: None Pre-Op/Pre-Procedure Diagnosis: Left clavicle plate hardware irritation Post-Op/Post-Procedure Diagnosis: Same Post-op Plan: Abx: periop ancef VTE Prophylaxis: 81mg aspirin BID Weightbearin lb weight restriction operative extremity. Range of motion as tolerated. Plan of care discussed with: Provider, RN, Patient. SIGNATURE: Donald Crowell MD PATIENT NAME: Kathrin Bravo DATE: January 23, 2023 TIME: 9:02 AM PAGER/CONTACT #: [phone] [facility] OPERATIVE NOon 01-23-2023 OPERATIVE NO HNO ID: [id number] Author: Jillian Machuca MD Service: Orthopaedic Surgery Author Type: Physician Type: Operative Report Filed: 01/24/2023 10:08 PM Note Text: [place] [address] [place] OPERATIVE REPORT NAME: Kathrin Hugo [facility] #: [id number] DATE: 01/23/2023 (8:19am-8:55am) AGE: 72 SURGEON 1: Jillian Machuca M.D. [employer] OPERATOR: 1. Haile Olson M.D. 2. Donald Crowell M.D. OPERATION: Revision screw fixation of left clavicle fracture ANESTHESIA: General anesthesia. PREOPERATIVE DIAGNOSIS: Status post open reduction and internal fixation of left clavicle fracture with prominent screw. POSTOPERATIVE DIAGNOSIS: Status post open reduction and internal fixation of left clavicle fracture with prominent screw. OPERATIVE INDICATIONS: The patient is a 72 year oldddx-vrgi-ios right-hand dominant female who underwent revision open reduction and internal fixation of a left clavicle fracture nonunion with bone grafting by myself on February 19, 2021. She recovered good strength and function after the surgery but has developed persistent pain complaints and recent advanced imaging, including CT, has shown evidence of a prominent screw in the distal hole of the clavicle plate. The screw was noted to be long and extending into the coracoid with development of erosion along the coracoid. Based on these findings, discussion was had regarding repeat surgical intervention in the form of revision of the screw to a shorter length to eliminate any coracoid erosion. The risks and benefits of the surgery, as well as the expected postoperative course were discussed with the patient at length. Based on the amount of glenoid bone loss, the possibility of a reverse total shoulder arthroplasty with glenoid bone grafting was discussed. The patient understood the risks and benefits, and wished to proceed with the operation. OPERATIVE FINDINGS: The screw in the distal hole of the clavicle plate was removed without difficulty and shortened, with fluoroscopic imaging confirming that the new screw did not contact the coracoid. OPERATIVE PROCEDURE: On the day of surgery, the patient was seen in the preoperative area. The planned surgical procedure and the correct surgical site were again reviewed with the patient and the left upper extremity was marked. Preoperative antibiotics were given. The patient was then taken back to the operating room and intubated without complications. She was placed in the beach chair position, and the left upper extremity was prepped and draped in the usual sterile fashion. A 1-2 incision was then made along the lateral aspect of the clavicle in the area of the lateral aspect of the clavicular plate. The incision was carried down to the level of the fascia and the clavicle plate was identified. The fascia was opened directly over the lateral aspect of the clavicle plate. Fluoroscopic imaging was then brought into confirm that the screw in the lateral hole of the plate was prominent and extending into the coracoid. This was confirmed and the screw was removed without difficulty. The screw was a locking screw and measured 14 mm in length. The screw hole was re-measured and found to be 10 mm in length. A new 3.5-mm locking screw that measured 10 mm in length was then placed in the screw hole. Fluoroscopic imaging confirmed appropriate length of the screw, all contact with the coracoid. The remainder of the clavicle plate was probed and the other screws were found to be well fixed with no loosening. There was no mobility at the fracture site with the clavicle and clavicular plate moving as one unit. The wound was then copiously irrigated. Local anesthetic was injected along the skin edges. The fascial layer was then closed using interrupted #1 Vicryl stitches. This did nicely cover the plate and bone. The subcutaneous layer was then closed with 2-0 Vicryl interrupted stitches. A running 3-0 Monocryl stitch was used to close the skin. Steri-Strips were placed over the incision site, and the wound was sterilely dressed with Adaptic, 4 x 4 gauze, ABD dressings, and Foam tape. The arm was then placed in a sling. The patient was awoken without complications and extubated. She was transferred to the PACU in stable condition. Closing of the incision was performed by Haile Olson M.D., and Donald Crowell M.D., with the primary surgeon (Jillian Machuca M.D.) readily available. The remainder of the procedure, including all critical elements, was completed by the primary surgeon (Jillian Machuca M.D.) with assistance from Haile Olson M.D., and Donald Crowell M.D. ESTIMATED BLOOD LOSS: 5 cc DRAINS: none SPECIMENS: none COMPLICATIONS: none apparent Jillian Machuca M.D. [facility] SURGICAL PATHOLOGYon 023 CASE REPORT Normal [facility] Comment on above: Order Comment: Speci men Type: DEVICE SPECIMEN Ordering Facility: [facility] Address: [address] [place] [address] Result Comment: Surg [facility] Pathology Report Case: [id number] Authorizing Provider: Jillian Machuca MD Collected: 01/23/2023 08:45 AM Ordering Location: [facility] Surgical Received: 01/23/2023 12:07 PM Services Pathologist: Lynn De La Garza MD Specimen: HARDWARE, Left Clavicle Screw Performed By: #### S #### [facility] CLIA [id number] [address] [facility] [address] OF [facility] CLINICAL HISTORY Normal [facility] Comment on above: Order Comment: Speci men Type: DEVICE SPECIMEN Ordering Facility: [facility] Address: [address] [place] [address] Result Comment: Pre- op diagnosis: 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 L eft clavicle, hardware, removal: -Unremarkable medical hardware (gross examination only). SEAN/VINH 01/24/2023 Performed By: #### S #### [facility] CLIA [id number] [address] [place] [address] FINAL PERFORMING LAB Normal [facility] Comment on above: Order Comment: Speci men Type: DEVICE SPECIMEN Ordering Facility: [facility] Address: [address] [place] [address] Result Comment: Diag nostic interpretation performed at [facility], [address] [place] [address] CLIA# [id number] Program Medical Director: Jonathan House M.D. Performed By: #### S #### [facility] CLIA [id number] [address] [place] [address] GROSS DESCRIPTION A. HARDWARE Normal [facility] Comment on above: Order Comment: Speci men Type: DEVICE SPECIMEN Ordering Facility: [facility] Address: [address] [place] [address] Result Comment: Rece ived in formalin, labeled left clavicle screw is a dolan-metallic surgical screw measuring 0.9 x 0.4 x 0.4 cm. There is no soft tissue present. The specimen is reviewed with Dr. De La Garza. No sections are submitted. KSZ January 24, 2023 9:55 AM Gross examination performed at [facility], [address] [place] [address] Performed By: #### S #### [facility] CLIA [id number] [address] [place] [id number] [place] OF [place] XR CLAVICLE 2V LTon 01-24-20 23 XR CLAVICLE 2V LT * * *Final Report* * * DATE OF EXAM: Jan 23 2023 9:02AM EUR 5316 - XR CLAVICLE 2V LT / PROCEDURE REASON: LT CLAVICLE SCREW REVISION * * * * Physician Interpretation * * * * RESULT: HISTORY: LT CLAVICLE SCREW REVISION TECHNIQUE: 2 spot fluoroscopic images of the left clavicle COMPARISON: Left clavicle radiographs 02/14/2022 RESULT: Limited evaluation of bony detail because of the technique. Again seen is postsurgical change of left clavicle plate and screw fixation. Please refer to the operative note for details. Fluoroscopic Radiation Summary: Plane A, Air Kerma: 0.9 mGy Dose Area Product (DAP): Fluoro time: 0:29 min:sec IMPRESSION: INTRAOPERATIVE EXAM Transcribed Using Voice Recognition Transcribe Date/Time: Jan 23 2023 11:42A Dictated by: MARISA GONSALES MD This examination was interpreted and the report reviewed and electronically signed by: MARISA GONSALES MD on Jan 23 2023 11:44AM EST [id number] Normal [facility] ECG COMPLETEon 01-12-2023 Atrial Rate 72 BPM [facility] Calculated P Tyrone 73 degrees [facility] Calculated R Tyrone 23 degrees [facility] Calculated T [place] 54 degrees [facility] P-R Interval 178 ms [facility] QRS Duration 82 ms [facility] QT Interval 416 ms [facility] QTC Calculation (Bazett) 455 ms [facility] Ventricular Rate [address] [facility] HEPATIC FUNCTION PANEL (8007 6)Ordered By: New Home Sales Consultant on 12-30-2022 Albumin [Mass/Vol] 4.8 g/dL Abnormal 3.7-4.7 [facility] Internal Medicine; [facility] Work Phone: Comment on above: PATIENT WAS FASTINGP ERFORMED BY: CHRISTOPHER [facility] [id number] [address]Dublin [place] [id number]; appt this week ALP [Catalytic activity/Vol] 65 U/L Normal 44-121 [facility]; [facility] Work Phone: Comment on above: PATIENT WAS FASTINGP ERFORMED BY: CB [facility] Lqmlzs7704 [address]Dublin [place] [id number]; appt this week ALT [Catalytic activity/Vol] 26 U/L Normal 0-32 [facility]; [facility] Work Phone: Comment on above: PATIENT WAS FASTINGP ERFORMED BY: CB [facility] Shyegb3185 [address]Dublin [place] [id number]; appt this week AST [Catalytic activity/Vol] 32 U/L Normal 0-40 [facility]; [facility] Work Phone: Comment on above: PATIENT WAS FASTINGP ERFORMED BY: CB [facility] Kdekdt7706 [address]Dublin [place] [id number]; appt this week Bilirubin [Mass/Vol] 0.5 mg/dL Normal 0.0-1.2 [facility]; [facility] Work Phone: Comment on above: PATIENT WAS FASTINGP ERFORMED BY: CHRISTOPHER [facility] Cfvevy6037 [address]Dublin [place] [id number]; appt this week Bilirubin.direct [Mass/Vol] 0.14 mg/dL Normal 0.00-0.40 [facility]; [facility] Work Phone: Comment on above: PATIENT WAS FASTINGP ERFORMED BY: CB [facility] Fxtdry5[address]Dublin [place] [id number]; appt this week Protein [Mass/Vol] 7.1 g/dL Normal 6.0-8.5 [facility]; [facility] Work Phone: Comment on above: PATIENT WAS FASTINGP ERFORMED BY: CB [facility] Jolhir3864 [address]Dublin [place] [id number]; appt this week LIPID PANEL (59382)Ordered B y: New Home Sales Consultant on 12-30-2022 Cholesterol [Mass/Vol] 207 mg/dL Abnormal 100-199 [facility]; [facility] Work Phone: Comment on above: PATIENT WAS FASTINGP ERFORMED BY: CHRISTOPHER [facility] Kawufz80[address]Dublin [place] [id number] Cholesterol in HDL [Mass/Vol] 80 mg/dL Normal [facility]; [facility] Work Phone: Comment on above: PATIENT WAS FASTINGP ERFORMED BY: CHRISTOPHER [facility] Fyfiid9986 [address]Dublin [place] [id number] Triglyceride [Mass/Vol] 85 mg/dL Normal 0-149 [facility]; [facility] Work Phone: Comment on above: PATIENT WAS FASTINGP ERFORMED BY: CHRISTOPHER [facility] Bkxijj79[address]Dublin [place] [id number] LIPID PANEL (48368) 15 mg/dL Normal 5-40 Compr ensive Internal Medicine; [facility] Work Phone: Comment on above: PATIENT WAS FASTINGP ERFORMED BY: CHRISTOPHER [facility] Cxwnmp5266 [address]Dublin [place] [id number] LIPID PANEL (89362) 112 mg/dL Abnormal 0-99 Compr ehensive Internal Medicine; [facility] Work Phone: Comment on above: PATIENT WAS FASTINGP ERFORMED BY: CHRISTOPHER [facility] Uebtqz9[address]Dublin [place] [id number] LIPID PANEL (50181) 1.4 {ratio} Normal 0.0-3.2 [facility]; [facility] Work Phone: Comment on above: LDL/HDL Ratio Men Wo men 1/2 Avg.Risk 1.0 1.5 Avg.Risk 3.6 3.2 2X Avg.Risk 6.2 5.0 3X Avg.Risk 8.0 6.1 PATIENT WAS FASTINGP ERFORMED BY: CB [facility] Qyuuwm8741 [address]Dublin [place] [id number] CT SHOULDER WO IVCON LTon [facility] HEPATIC FUNCTION PANEL (8007 6)Ordered By: New Home Sales Consultant on 09-21-2022 Albumin [Mass/Vol] 4.6 g/dL Normal 3.7-4.7 [facility] Internal Medicine; [facility] Work Phone: Comment on above: PATIENT WAS FASTINGP ERFORMED BY: CB [facility] Ljhnex4[address]Dublin [place] [id number] ALP [Catalytic activity/Vol] 54 U/L Normal 44-121 [facility]; [facility] Work Phone: Comment on above: PATIENT WAS FASTINGP ERFORMED BY: CB [facility] Gvuwvx7458 [address]Dublin [place] [id number] ALT [Catalytic activity/Vol] 18 U/L Normal 0-32 [facility]; [facility] Work Phone: Comment on above: PATIENT WAS FASTINGP ERFORMED BY: CB [facility] Zxpmlm1407 [address]Dublin [place] [id number] AST [Catalytic activity/Vol] 27 U/L Normal 0-40 [facility]; [facility] Work Phone: Comment on above: PATIENT WAS FASTINGP ERFORMED BY: CB [facility] Cgslkw9599 [address]Dublin [place] [id number] Bilirubin [Mass/Vol] 0.6 mg/dL Normal 0.0-1.2 Comp [facility] Internal Medicine; [facility] Work Phone: Comment on above: PATIENT WAS FASTINGP ERFORMED BY: CB [facility] Foccjs3620 [address]Dublin [place] [id number] Bilirubin.direct [Mass/Vol] 0.14 mg/dL Normal 0.00-0.40 [facility]; [facility] Work Phone: Comment on above: PATIENT WAS FASTINGP ERFORMED BY: CB [facility] Fngrab76[address]Dublin [place] [id number] Protein [Mass/Vol] 6.9 g/dL Normal 6.0-8.5 [facility] Internal Medicine; [facility] Work Phone: Comment on above: PATIENT WAS FASTINGP ERFORMED BY: CHRISTOPHER [facility] Gdhanh48[address]Dublin [place] [id number] LIPID PANEL (06248)Ordered B y: New Home Sales Consultant on 09-21-2022 Cholesterol [Mass/Vol] 257 mg/dL Abnormal 100-199 [facility]; [facility] Work Phone: Comment on above: PATIENT WAS FASTINGP ERFORMED BY: CHRISTOPHER [facility] Zecwjd0602 [address]Dublin [place] [id number] Cholesterol in HDL [Mass/Vol] 86 mg/dL Normal [facility]; [facility] Work Phone: Comment on above: PATIENT WAS FASTINGP ERFORMED BY: CHRISTOPHER [facility] Hmuqye0228 [address]Dublin [place] [id number] Triglyceride [Mass/Vol] 77 mg/dL Normal 0-149 [facility]; [facility] Work Phone: Comment on above: PATIENT WAS FASTINGP ERFORMED BY: CHRISTOPHER Labrebeka GallegosEfssxz3086 [address]Dublin [place] [id number] LIPID PANEL (50293) 13 mg/dL Normal 5-40 Compr ehensive Internal Medicine; [facility] Work Phone: Comment on above: PATIENT WAS FASTINGP ERFORMED BY: CHRISTOPHER Labj[facility] Udwjik1837 [address]Dublin [place] [id number] LIPID PANEL (91283) 158 mg/dL Abnormal 0-99 Compr ehensive Internal Medicine; [facility] Work Phone: Comment on above: PATIENT WAS FASTINGP ERFORMED BY: CHRISTOPHER [facility] Suacfk8435 [address]Dublin [place] [id number] LIPID PANEL (22875) 1.8 {ratio} Normal 0.0-3.2 [facility]; [facility] Work Phone: Comment on above: LDL/HDL Ratio Men Wo men 1/2 Avg.Risk 1.0 1.5 Avg.Risk 3.6 3.2 2X Avg.Risk 6.2 5.0 3X Avg.Risk 8.0 6.1 PATIENT WAS FASTINGP ERFORMED BY: CHRISTOPHER [facility] Otttbp8802 C[address] RoadDuWashington Regional [facility] Center [id number] MICROALBUMINOrdered By: Syst em Respiratory Care Instructor on 06-28-2022 Albumin DL <= 20 mg/L (U) [Mass/Vol] 12.3 ug/mL Normal [facility]; [facility] Work Phone: Comment on above: PATIENT NOT FASTINGP ERFORMED BY: ShareSDK6370 ePartnersWashington [facility] [id number] Albumin/Creatinine (U) [Mass ratio] 11 {mg/g_creat} Normal 0-29 [facility]; [facility] Work Phone: Comment on above: Normal: 0 - 29 Moder ately increased: 30 - 300 Severely increased: >300 PATIENT NOT FASTINGP ERFORMED BY: CHRISTOPHER Accolo6370 CouchbaseTriStar [facility] [id number] Creatinine (U) [Mass/Vol] 114.4 mg/dL Normal [facility]; [facility] Work Phone: Comment on above: PATIENT NOT FASTINGP ERFORMED BY: ShareSDK6370 [facility]nersWashington [facility] [id number] BONE DENSITY AXIAL (HIP, PEL VIS, SPINE)on 06-15-2022 IMPRESSION: Based on BMD and WHO criteria diagnosis is consistent with osteopenia. Recommendations: Optimization of calcium and vitamin D supplementation. Consider calculation of absolute fracture risk such as utilizing FRAX criteria. Follow up bone density testing in 2 years. * The T-score reflects standard deviations above (+) or below (-) a 20-40 year-old, , female, [place] population. At this age, it is assumed that peak bone mass is reached. * The Z-score reflects standard deviations above (+) or below (-) an age, sex, ethnicity, and weight-matched population. * Osteoporosis is defined as a skeletal disorder characterized by compromised bone strength predisposing to an increased risk of fracture. Bone strength reflects the integration of two main features: BMD and bone quality (JAIR 2001;285:785-795). Any history of fragility fracture is suggestive of osteoporosis, regardless of the BMD data acquired in this study. * Secondary causes of bone loss should be evaluated if clinically indicated as the etiology of low BMD cannot be determined by BMD measurement alone. The physician who interpreted this study is a Certified Clinical Directory Carrier by the International Society of Clinical Densitometry Ochoa Adame MD, CCD. OLOGY EXAM: BONE DENSITY A XIAL (HIP, PELVIS, SPINE) 06/15/2022 14:16 PM TECHNIQUE: DXA scanning using a Matter[employer] Advance bone densitometer at the [facility] was performed on 06/15/2022 14:16 PM CLINICAL INDICATIONS: senile osteoporosis, menopause RELEVANT CLINICAL HISTORY: M80.00XG: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, subsequent encounter Z78.0:Menopause COMPARISON: There is a comparison study from February 20, 2018 performed on a different Verastemigy machine at a different facility. Due to differences in technology, a valid comparison cannot be made and thus the current study will serve as a new baseline. FINDINGS: 1. Quality of the examination at the L1-4 lumbar spine: BMD values in the lower lumbar spine are disproportionately elevated as compared to the upper lumbar levels secondary to underlying degenerative changes. L4 will be excluded from the analysis. 2. Quality of the examination at the dual hip: Adequate. BONE MINERAL DENSITY (BMD) CURRENT BONE MINERAL DENSITY (BMD) Region: g/cm2 T-Score Lumbar L1-3 Spine: 1.038 -1.1 Left Femoral Neck: 0.714 -2.3 Left Total Hip: 0.811 -1.6 Right Femoral Neck: 0.762 -2.0 Right Total Hip: 0.799 -1.7 RADIOLOGY Ochoa Adame MD - 06/15/2022 EXAM: BONE DENSITY AXIAL (HIP, PELVIS, SPINE) 06/15/2022 14:16 PM TECHNIQUE: DXA scanning using a [employer] Advance bone densitometer at the [facility] was performed on 06/15/2022 14:16 PM CLINICAL INDICATIONS: senile osteoporosis, menopause RELEVANT CLINICAL HISTORY: M80.00XG: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, subsequent encounter Z78.0:Menopause COMPARISON: There is a comparison study from February 20, 2018 performed on a different ONEPLEy machine at a different facility. Due to differences in technology, a valid comparison cannot be made and thus the current study will serve as a new baseline. FINDINGS: 1. Quality of the examination at the L1-4 lumbar spine: BMD values in the lower lumbar spine are disproportionately elevated as compared to the upper lumbar levels secondary to underlying degenerative changes. L4 will be excluded from the analysis. 2. Quality of the examination at the dual hip: Adequate. BONE MINERAL DENSITY (BMD) CURRENT BONE MINERAL DENSITY (BMD) Region: g/cm2 T-Score Lumbar L1-3 Spine: 1.038 -1.1 Left Femoral Neck: 0.714 -2.3 Left Total Hip: 0.811 -1.6 Right Femoral Neck: 0.762 -2.0 Right Total Hip: 0.799 -1.7 IMPRESSION IMPRESSION: Based on BMD and WHO criteria diagnosis is consistent with osteopenia. Recommendations: Optimization of calcium and vitamin D supplementation. Consider calculation of absolute fracture risk such as utilizing FRAX criteria. Follow up bone density testing in 2 years. * The T-score reflects standard deviations above (+) or below (-) a 20-40 year-old, , female, [place] population. At this age, it is assumed that peak bone mass is reached. * The Z-score reflects standard deviations above (+) or below (-) an age, sex, ethnicity, and weight-matched population. * Osteoporosis is defined as a skeletal disorder characterized by compromised bone strength predisposing to an increased risk of fracture. Bone strength reflects the integration of two main features: BMD and bone quality (JAIR 2001;285:785-795). Any history of fragility fracture is suggestive of osteoporosis, regardless of the BMD data acquired in this study. * Secondary causes of bone loss should be evaluated if clinically indicated as the etiology of low BMD cannot be determined by BMD measurement alone. The physician who interpreted this study is a Certified Clinical Directory Carrier by the International Society of Clinical Densitometry Ochoa Adame MD, CCD. [facility] Radiology Study observation (narrative) [facility] BONE DENSITY AXIAL (HIP, PEL VIS, SPINE)Ordered By: Ochoa Adame on 06-15-2022 [facility] Work Phone: URINE JULI CULTURE (LESLIE COL COUNT) ([id number])Ordered By: New Home Sales Consultant on 06-15-2022 Bacteria identified Cx Nom (U) Final report Abnormal [facility]; [facility] Work Phone: Comment on above: PATIENT NOT FASTINGP ERFORMED BY: [employer] Qpfkje5423 ePartnersWashington [facility] Center [id number] Information: SRC: Bacteria identified Cx Nom (U) CNSNSS Abnormal [facility]; [facility] Work Phone: Comment on above: Coagulase negative S taphylococcus species, not Staphylococcussaprophyticus.25,000-50,000 colony forming units per mLBased on resistance to oxacillin this isolate would be resistant toall currently available beta-lactam antimicrobial agents, with theexception of the newer cephalosporins with anti-MRSA activity, such asCeftaroline PATIENT NOT FASTINGP ERFORMED BY: [email or web address] MyDROBECaroMont Regional Medical Center [id number] Information: SRC:UC Bacteria identified Cx Nom (U) Enterococcus faecalis Abnormal Comprehens keyon Internal Medicine; [facility] Work Phone: Comment on above: For Enterococcus spe cies, aminoglycosides (except for high-levelresistance screening), cephalosporins, clindamycin, andtrimethoprim-sulfamethoxazole are not effective clinically.(CLSI, V881-B21, 2016)8,000 Colonies/mLNote: this isolate is vancomycin-susceptible.This information is provided for epidemiologic purposes only:vancomycin is not among the antibiotics recommended for therapyof urinary tract infections caused by Enterococcus. PATIENT NOT FASTINGP ERFORMED BY: [employer] [id number] MyDR[facility]ECaroMont [facility] [id number] Information: SRC:UC Other Antibiotic [Susc] MIHEAD Normal [facility]; [facility] Work Phone: Comment on above: S = Susceptible; I = Intermediate; R = Resistant P = Positive; N = Negative MICS are expressed in micrograms per mL Antibiotic RSLT#1 RSLT#2 RSLT#3 RSLT#4Ciprofloxacin R SGentamicin SLevofloxacin R SLinezolid SMoxifloxacin RNitrofurantoin S SOxacillin RPenicillin R SRifampin STetracycline S RTrimethoprim/Sulfa SVancomycin S S PATIENT NOT FASTINGP ERFORMED BY: CHRISTOPHER [facility] [id number] [facility] [id number] Information: SRC:JACQUELINE Urinalysis, Office ([id number])Or dered By: Hattie Pascal on 06-15-2022 Bilirubin Ql (U) Negative Normal Comprehe nsive Internal Medicine; [facility] Work Phone: Glucose Test strip (U) [Mass/Vol] Negative Normal [facility]; [facility] Work Phone: Hemoglobin Ql (U) Negative Normal Compreh ensive [facility]; [facility] Work Phone: Ketones Ql (U) Negative Normal Comprehens keyon Internal Medicine; [facility] Work Phone: Leukocyte esterase Test strip Ql (U) Small Normal [facility]; [facility] Work Phone: Nitrite Ql (U) Negative Normal Comprehens keyon Internal Medicine; [facility] Work Phone: pH (U) 6.0 [pH] Normal [facility]; [facility] Work Phone: Protein Ql (U) Negative Normal Comprehens keyon Internal Medicine; [facility] Work Phone: Specific gravity (U) [Rel density] 1.025 1 Normal [facility]; [facility] Work Phone: Urobilinogen (24H U) [Mass/Time] 2 mg/dL Normal [facility]; [facility] Work Phone: URINE JLUI CULTURE-IDENTIFICA TN ([id number])Ordered By: New Home Sales Consultant on 06-03-2022 Bacteria identified Cx Nom (U) Final report Abnormal [facility]; [facility] Work Phone: Comment on above: PERFORMED BY: CHRISTOPHER Lab rebeka [id number] [facility] [id number] Information: SRC:UC Bacteria identified Cx Nom (U) Escherichia coli Abnormal [facility]; [facility] Work Phone: Comment on above: Cefazolin <=4 ug/mLC efazolin with an MICHAELA <=16 predicts susceptibility to the oral agentscefaclor, cefdinir, cefpodoxime, cefprozil, cefuroxime, cephalexin,and loracarbef when used for therapy of uncomplicated urinary tractinfections due to E. coli, Klebsiella pneumoniae, and Proteusmirabilis.Greater than 100,000 colony forming units per mL PERFORMED BY: [employer] [facility]base[facility] [id number] Information: SRC: Other Antibiotic [Susc] MIHEAD Normal [facility]; [facility] Work Phone: Comment on above: S = Susceptible; I = Intermediate; R = Resistant P = Positive; N = Negative MICS are expressed in micrograms per mL Antibiotic RSLT#1 RSLT#2 RSLT#3 RSLT#4Amoxicillin/Clavulanic Acid SAmpicillin SCefepime SCeftriaxone SCefuroxime SCiprofloxacin SErtapenem SGentamicin SImipenem SLevofloxacin SMeropenem SNitrofurantoin SPiperacillin/Tazobactam STetracycline RTobramycin STrimethoprim/Sulfa S PERFORMED BY: [employer] Intent6370 [facility] [id number] Information: SRC:JACQUELINE Urinalysis, Office ([id number])Or dered By: Janine Serrano on 06-03-2022 Bilirubin Ql (U) Negative Normal Comprehe nsive Internal Medicine; [facility] Work Phone: Glucose Test strip (U) [Mass/Vol] Negative Normal [facility]; [facility] Work Phone: Hemoglobin Ql (U) Negative Normal Compreh ensive [facility] Medicine; [facility] Work Phone: Ketones Ql (U) Negative Normal Comprehens keyon [facility] Medicine; [facility] Work Phone: Leukocyte esterase Test strip Ql (U) Negative Normal [facility]; [facility] Work Phone: Nitrite Ql (U) Positive Normal Comprehens keyon Internal Medicine; [facility] Work Phone: pH (U) 6 [pH] Abnormal [facility]; [facility] Work Phone: Protein Ql (U) ++ Abnormal Comprehens keyon Internal Medicine; [facility] Work Phone: Specific gravity (U) [Rel density] 1.030 1 Abnormal [facility]; [facility] Work Phone: Urobilinogen (24H U) [Mass/Time] Normal Normal [facility]; [facility] Work Phone: COLONOSCOPY DIAGNOSTICon [facility] MRI SHOULDER WO IVCON LTon 0 03-03-2022 [facility] LIPID PANEL ([id number])Ordered B y: New Home Sales Consultant on 02-14-2022 Cholesterol [Mass/Vol] 286 mg/dL Abnormal 100-199 [facility]; [facility] Work Phone: Comment on above: PATIENT WAS FASTINGP ERFORMED BY: CB [facility] [id number] [address]Dublin [place] [id number]; fu 5-9 db Cholesterol in HDL [Mass/Vol] 106 mg/dL Normal [facility]; [facility] Work Phone: Comment on above: PATIENT WAS FASTINGP ERFORMED BY: CB [facility] [id number] [address] RoadDublin [place] [id number]; fu 5-9 db Triglyceride [Mass/Vol] 61 mg/dL Normal 0-149 [facility]; [facility] Work Phone: Comment on above: PATIENT WAS FASTINGP ERFORMED BY: CB [facility] Grwknz0874 [address] RoadDublin [place] [id number]; fu 5-9 db LIPID PANEL (34216) 9 mg/dL Normal 5-40 Compr ensive [facility] Medicine; [facility] Work Phone: Comment on above: PATIENT WAS FASTINGP ERFORMED BY: CB [facility] [id number] [address]Dublin [place] [id number]; fu 5-9 db LIPID PANEL (21808) 171 mg/dL Abnormal 0-99 Compr ehensive Internal Medicine; [facility] Work Phone: Comment on above: PATIENT WAS FASTINGP ERFORMED BY: CHRISTOPHER [facility] [id number] [address]Dublin [place] [id number]; fu 5-9 db LIPID PANEL (26296) 1.6 {ratio} Normal 0.0-3.2 [facility] Internal Medicine; [facility] Work Phone: Comment on above: LDL/HDL Ratio Men Wo men 1/2 Avg.Risk 1.0 1.5 Avg.Risk 3.6 3.2 2X Avg.Risk 6.2 5.0 3X Avg.Risk 8.0 6.1 PATIENT WAS FASTINGP ERFORMED BY: CB [facility] [id number] [address] RoadDublin [place] [id number]; fu 5-9 db METABOLIC PANEL, COMPREHENSI VE (38607)Ordered By: New Home Sales Consultant on 02-14-2022 Albumin [Mass/Vol] 4.7 g/dL Normal 3.7-4.7 [facility] Internal Medicine; [facility] Work Phone: Comment on above: PATIENT WAS FASTINGP ERFORMED BY: CHRISTOPHER [facility] Otoqeq0319 [address]Dublin [place] [id number] Albumin/Globulin [Mass ratio] 1.9 {ratio} Normal 1.2-2.2 [facility]; [facility] Work Phone: Comment on above: PATIENT WAS FASTINGP ERFORMED BY: CHRISTOPHER [facility] [id number] [address]Dublin [place] [id number] ALP [Catalytic activity/Vol] 55 U/L Normal 44-121 [facility]; [facility] Work Phone: Comment on above: PATIENT WAS FASTINGP ERFORMED BY: CB [facility] [id number] [address] RoadDublin [place] [id number] ALT [Catalytic activity/Vol] 23 U/L Normal 0-32 [facility]; [facility] Work Phone: Comment on above: PATIENT WAS FASTINGP ERFORMED BY: CHRISTOPHER [facility] Rlyxoh1712 [address]Dublin [place] [id number] AST [Catalytic activity/Vol] 29 U/L Normal 0-40 [facility]; [facility] Work Phone: Comment on above: PATIENT WAS FASTINGP ERFORMED BY: CHRISTOPHER [facility] [id number] [address]Dublin [place] [id number] Bilirubin [Mass/Vol] 0.7 mg/dL Normal 0.0-1.2 [facility] rehensive Internal Medicine; [facility] Work Phone: Comment on above: PATIENT WAS FASTINGP ERFORMED BY: CB [facility] Elhfzu5454 [address]Dublin [place] [id number] Calcium [Mass/Vol] 9.9 mg/dL Normal 8.7-10.3 [facility] Internal Medicine; [facility] Work Phone: Comment on above: PATIENT WAS FASTINGP ERFORMED BY: [facility] Azespe3715 [address]Dublin [place] [id number] Chloride [Moles/Vol] 97 mmol/L Normal 96-106 [facility] rehensive Internal Medicine; [facility] Work Phone: Comment on above: PATIENT WAS FASTINGP ERFORMED BY: [facility] [id number] [address]Dublin [place] [id number] CO2 [Moles/Vol] 23 mmol/L Normal 20-29 [facility]; [facility] Work Phone: Comment on above: PATIENT WAS FASTINGP ERFORMED BY: [facility] Vrcesw4744 [address]Dublin [place] [id number] Creatinine [Mass/Vol] 0.88 mg/dL Normal 0.57-1.00 [facility]; [facility] Work Phone: Comment on above: PATIENT WAS FASTINGP ERFORMED BY: [facility] Noquko3102 [address]Dublin [place] [id number] GFR/1.73 sq M.predicted among non-blacks MDRD (S/P/Bld) [Vol rate/Area] 69 mL/min/{1.73_m2} Normal Comprehensiv e Internal Medicine; [facility] Work Phone: Comment on above: PATIENT WAS FASTINGP ERFORMED BY: [facility] Uoxalj3224 [address]Dublin [place] [id number] Globulin (S) [Mass/Vol] 2.5 g/dL Normal 1.5-4.5 [facility]; [facility] Work Phone: Comment on above: PATIENT WAS FASTINGP ERFORMED BY: [facility] Chgvci2900 [address]Dublin [place] [id number] Glucose [Mass/Vol] 86 mg/dL Normal 65-99 [facility]; [facility] Work Phone: Comment on above: PATIENT WAS FASTINGP ERFORMED BY: [facility] Tsiptm6592 [address]Dublin [place] [id number] Potassium [Moles/Vol] 4.6 mmol/L Normal 3.5-5.2 [facility]; [facility] Work Phone: Comment on above: PATIENT WAS FASTINGP ERFORMED BY: [facility] [id number] [address]Dublin [place] [id number] Protein [Mass/Vol] 7.2 g/dL Normal 6.0-8.5 [facility] Internal Medicine; [facility] Work Phone: Comment on above: PATIENT WAS FASTINGP ERFORMED BY: [facility] [id number] [address]Dublin [place] [id number] Sodium [Moles/Vol] 134 mmol/L Normal 134-144 [facility] Internal Medicine; [facility] Work Phone: Comment on above: PATIENT WAS FASTINGP ERFORMED BY: [facility] [id number] [address]Dublin [place] [id number] Urea nitrogen [Mass/Vol] 17 mg/dL Normal 8-27 [facility]; [facility] Work Phone: Comment on above: PATIENT WAS FASTINGP ERFORMED BY: [facility] [id number] [address]Dublin [place] [id number] Urea nitrogen/Creatinine [Mass ratio] 19 mg/mg Normal 12-28 [facility]; [facility] Work Phone: Comment on above: PATIENT WAS FASTINGP ERFORMED BY: CHRISTOPHER [facility] [id number] [facility] [id number] XR Clavicle - left 2 Viewson 02-14-2022 IMPRESSION: Stable posttraumatic and postoperative changes. 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 TECHNIQUE: XR CLAVICLE 2V LT Laterality: LEFT Number of different views (projections): 2 M: XB_1 COMPARISON: 08/16/2021 RESULT: Again seen is postoperative changes of plate and screw fixation of mid clavicle fracture. Surgical hardware is intact and unchanged. Lucency is again noted in the region of fracture without complete bony union. Visualized glenohumeral joint is maintained. Mild narrowing of the acromioclavicular joint. No other significant abnormality. 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 TECHNIQUE: XR CLAVICLE 2V LT Laterality: LEFT Number of different views (projections): 2 M: XB_1 COMPARISON: 08/16/2021 RESULT: Again seen is postoperative changes of plate and screw fixation of mid clavicle fracture. Surgical hardware is intact and unchanged. Lucency is again noted in the region of fracture without complete bony union. Visualized glenohumeral joint is maintained. Mild narrowing of the acromioclavicular joint. No other significant abnormality. IMPRESSION IMPRESSION: Stable posttraumatic and postoperative changes. Supervisor Chemical: PSCB Transcribe Date/Time: Feb 14 2022 3:16P Dictated by : TELLO CASEY MD This examination was interpreted and the report reviewed and electronically signed by: TELLO CASEY MD on Feb 14 2022 3:17PM EST [facility] Radiology Study observation (narrative) [facility] XR Clavicle - left 2 ViewsOr dered By: Ccf Provider on 02-14-2022 [facility] Clinical Summary: Lam lenka 01-26-2022 MC75 OP Visit Invalid Interpretation Code [facility] Work Phone: Office Visit: New/Est - 1st visit with physician, Rm: 42on 01-26-2022 NEGATED: Highlighted rowMRI (magnetic resonance imaging) history of the Thoracic on 11/23/2021 at [place], of the LEft Shoulder on 06/03/2020 at [place] Invalid Interpretation Code [facility] Work Phone: NEGATED: Highlighted rowxray history of the Left Clavicle and shoulder on 06/02/2020 at [facility] Invalid Interpretation Code [facility] Work Phone: INHOUSE COVID 19 (ONLY) RAPI D ([id number])Ordered By: Janine Serrano on 12-29-2021 SARS-CoV-2 (COVID-19) RNA SHAE+probe Ql (Unsp spec) Negative Normal [facility]; [facility] Work Phone: Absolute lymphocyte counton 12-20-2021 Lymphocytes Auto (Unsp spec) [#/Vol] 2.19 10*3/uL 0.83-4.51 [facility] Work Phone: Basophil percentageon 2021 Basophils/100 WBC (Bld) 0.4 % 0-1 [facility] Work Phone: Chloride [Moles/Vol] 105 mmol/L 98-107 [facility] Work Phone: Eosinophils/100 WBC (Bld) 1.0 % 0-5 [facility] Work Phone: Glucose [Mass/Vol] 96 mg/dL 74-106 [facility] Work Phone: Neutrophils (Bld) [#/Vol] 5.4 10*3/uL 2.0-7.7 [facility] Work Phone: Neutrophils/100 WBC (Bld) 60.8 % 47-70 [facility] Work Phone: Potassium [Moles/Vol] 3.7 mmol/L 3.5-5.1 [facility] Work Phone: Sodium [Moles/Vol] 135 mmol/L 136-145 [facility] Work Phone: WBC (Bld) [#/Vol] 8.9 10*3/uL 4.4-11.0 [facility] Work Phone: Blood erythrocytes count (nu mber/volume)on 12-20-2021 RBC (Bld) [#/Vol] 3.84 10*6/uL 4.2-5.4 [facility] Work Phone: Blood hemoglobin measurement (mass/volume)on 12-20-2021 Hemoglobin (Bld) [Mass/Vol] 12.5 g/dL 12.0-15.0 [facility] Work Phone: Blood lymphocytes/100 leukoc yteson 12-20-2021 Lymphocytes/100 WBC (Bld) 24.6 % 19-41 [facility] Work Phone: Blood monocytes/100 leukocyt eson 12-20-2021 Monocytes/100 WBC (Bld) 12.8 % 0-10 [facility] Work Phone: Blood platelet mean volumeon 12-20-2021 Platelet mean volume (Bld) [Entitic vol] 10.6 fL 6.2-12.0 [facility] Work Phone: Determination of erythrocyte mean corpuscular volume (MCV)on 12-20-2021 MCV (RBC) [Entitic vol] 95.6 fL 81-99 [facility] Work Phone: Hematocrit Auto (Bld) [Volum e fraction]on 12-20-2021 Hematocrit (Bld) [Volume fraction] 36.7 % 37-47 [facility] Work Phone: Laboratory - Chemistry and C hemistry - challengeon 12-20-2021 CO2 [Moles/Vol] 25.0 mmol/L 21.0-32.0 [facility] Work Phone: Urea nitrogen/Creatinine [Mass ratio] 15.3 mg/mg 10-20 [facility] Work Phone: Laboratory - Hematology and Cell countson 12-20-2021 Erythrocyte distribution width (RBC) [Entitic vol] 50.0 fL 35.1-43.9 [facility] Work Phone: Erythrocyte distribution width (RBC) [Ratio] 14.2 % 11.6-14.6 [facility] Work Phone: Immature granulocytes/100 WBC (Bld) 0.400 % 0.0-0.9 [facility] Work Phone: Comment on above: IG% - Immature Granu locytes (promyelocytes, myelocytes and metamyelocytes) > 1% indicates that a LEFT SHIFT is Present. MCH (RBC) [Entitic mass] 32.6 pg 27.0-32.0 [facility] Work Phone: Nucleated RBC/100 WBC (Bld) [Ratio] 0 % 0-5 [facility] Work Phone: MCHC Auto (RBC) [Mass/Vol]on 12-20-2021 MCHC (RBC) [Mass/Vol] 34.1 g/dL 32-36 [facility] Work Phone: No Panel Informationon 12-20 Estimated Creatinine Clearance Calc 37.81 ml/min [facility] Work Phone: Estimated GFR (MDRD) Amer 114 mL/min >60 [facility] Work Phone: Comment on above: GFR Calc Estimated GFR (MDRD) Non-Af Amer 95 mL/min >60 [facility] Work Phone: Comment on above: Non- GFR Calc Platelets bldon 12-20-2021 Platelets (Bld) [#/Vol] 320 10*3/uL 150-450 [facility] Work Phone: Serum or plasma calcium padmini urement (mass/volume)on 12-20-2021 Calcium [Mass/Vol] 8.4 mg/dL 8.5-10.1 [facility] Work Phone: Serum or plasma creatinine m easurement (mass/volume)on 12-20-2021 Creatinine [Mass/Vol] 0.65 mg/dL 0.55-1.02 [facility] Work Phone: Comment on above: The validity of the calculated GFR & GFRAA in patients over 70 years has not been determined. Clinical correlation is essential. Serum or plasma urea nitroge n measurement (mass/volume)on 12-20-2021 Urea nitrogen [Mass/Vol] 10 mg/dL 7-18 [facility] Work Phone: Thin prep Papanicolaou smear with manual screeningon 12-20-2021 Thin prep Papanicolaou smear with manual screening 5 5-15 [facility] Work Phone: Basophil percentageon 2021 Lactate [Moles/Vol] 0.6 mmol/L 0.4-2.0 [facility] Work Phone: Basophil percentage 0 SEEN /hpf [facility] Work Phone: Bilirubin [Mass/Vol] 0.60 mg/dL 0.20-1.00 [facility] Work Phone: Comment on above: For patients on eltr ombopag therapy, use of Dimension [place] TBIL is not recommended. Protein [Mass/Vol] 6.9 g/dL 6.4-8.2 [facility] Work Phone: Bilirubin Test strip Ql (U)o n 12-19-2021 Bilirubin Ql (U) Negative Negative [facility] Work Phone: Ketones Test strip Ql (U)on 12-19-2021 Ketones Ql (U) 50 mg/dl Negative [facility] Work Phone: Laboratory - Chemistry and C hemistry - challengeon 12-19-2021 ALP [Catalytic activity/Vol] 51 U/L 45-117 [facility] Work Phone: ALT [Catalytic activity/Vol] 23 U/L 13-56 [facility] Work Phone: Globulin (S) [Mass/Vol] 3.3 g/dL 2.2-4.2 [facility] Work Phone: Lipase [Catalytic activity/Vol] 66 U/L 73-393 [facility] Work Phone: Mucus LM Ql (Urine sed)on Mucus Ql (Urine sed) 0 SEEN /hpf [facility] Work Phone: Nitrite Test strip Ql (U)on 12-19-2021 Nitrite Ql (U) Negative Negative [facility] Work Phone: Protein Test strip Ql (U)on 12-19-2021 Protein Ql (U) 15 mg/dl Negative [facility] Work Phone: Serum or plasma albumin padmini urement (mass/volume)on 12-19-2021 Albumin [Mass/Vol] 3.6 g/dL 3.2-5.0 [facility] Work Phone: Serum or plasma albumin/glob ulin mass ratioon 12-19-2021 Albumin/Globulin [Mass ratio] 1.1 {ratio} 0.9-2.4 [facility] Work Phone: Squamous epithelial cells de tection in urine sediment by light microscopyon 12-19-2021 Epithelial cells.squamous LM Ql (Urine sed) 0 SEEN /hpf [facility] Work Phone: Thin prep Papanicolaou smear with manual screeningon 12-19-2021 Thin prep Papanicolaou smear with manual screening 20 U/L 15-37 [facility] Work Phone: Urine blood detectionon - RBC Ql (U) Negative Negative [facility] Work Phone: RBC Ql (U) 0 SEEN /hpf [facility] Work Phone: Urine clarityon 12-19-2021 Clarity (U) Clear Clear [facility] Work Phone: Urine color determinationon 12-19-2021 Color (U) Yellow Yellow [facility] Work Phone: Urine glucose detectionon Glucose Ql (U) Normal mg/dl Normal [facility] Work Phone: Urine leukocyte esterase det ection by dipstickon 12-19-2021 Leukocyte esterase Test strip Ql (U) Negative Negative [facility] Work Phone: Urine pHon 12-19-2021 pH (U) 7.0 [pH] [facility] Work Phone: Urine sediment bacteria coun t by microscopy (number/high power field)on 12-19-2021 Bacteria LM.HPF (Urine sed) [#/Area] 0 /[HPF] None Seen [facility] Work Phone: Urine specific gravity measu rementon 12-19-2021 Specific gravity (U) [Rel density] 1.015 [facility] Work Phone: Urobilinogen Auto test strip Ql (U)on 12-19-2021 Urobilinogen Ql (U) Normal mg/dl Normal [facility] Work Phone: LIPID PANEL ([id number])Ordered B y: New Home Sales Consultant on 11-03-2021 Cholesterol [Mass/Vol] 264 mg/dL Abnormal 100-199 [facility]; [facility] Work Phone: Comment on above: in three months (steve roximately); PATIENT WAS FASTINGPERFORMED BY: CB [facility] [id number] [address]Dublin [place] [id number]; fu 1-20 Cholesterol in HDL [Mass/Vol] 96 mg/dL Normal [facility]; [facility] Work Phone: Comment on above: in three months (steve roximately); PATIENT WAS FASTINGPERFORMED BY: CB [facility] [id number] [address]Dublin [place] [id number]; fu 1-20 Triglyceride [Mass/Vol] 55 mg/dL Normal 0-149 [facility]; [facility] Work Phone: Comment on above: in three months (steve roximately); PATIENT WAS FASTINGPERFORMED BY: CB [facility] [id number] [address]Dublin [place] [id number]; fu 1-20 LIPID PANEL (66125) 8 mg/dL Normal 5-40 Compr ensive Internal Medicine; [facility] Work Phone: Comment on above: in three months (steve roximately); PATIENT WAS FASTINGPERFORMED BY: CB [facility] Lalogb1821 [address]Dublin [place] [id number]; fu 1-20 LIPID PANEL (23589) 160 mg/dL Abnormal 0-99 Compr ensive [facility] Medicine; [facility] Work Phone: Comment on above: in three months (steve roximately); PATIENT WAS FASTINGPERFORMED BY: CB [facility] Cjmsyp1761 [address]Dublin [place] [id number]; fu 1-20 LIPID PANEL (95056) 1.7 {ratio} Normal 0.0-3.2 Comp [facility]; [facility] Work Phone: Comment on above: LDL/HDL Ratio Men Wo men 1/2 Avg.Risk 1.0 1.5 Avg.Risk 3.6 3.2 2X Avg.Risk 6.2 5.0 3X Avg.Risk 8.0 6.1 in three months (steve roximately); PATIENT WAS FASTINGPERFORMED BY: [facility] [id number]; fu 1-20 Methymalonic Acid, Serum (83 921)Ordered By: New Home Sales Consultant on 08-27-2021 Methylmalonate [Moles/Vol] 176 nmol/L Normal 0-378 [facility]; [facility] Work Phone: Comment on above: today; Test(s) 7-JIMC-WbX-2 Semi-Quant Total Ab; [id number] Helder Ab Interphas not been FDA cleared or approved. This test hasbeen authorized by FDA under an Emergency Use Authorization(EUA). This test is only authorized for the duration of thedeclaration that circumstances exist justifying the authorizationof emergency use of in vitro diagnostics for detection and/ordiagnosis of COVID-19 under Section 564(b)(1) of the Act, 21U.S.C. 360bbb-3(b)(1), unless the authorization is terminated orrevoked sooner. This test has been authorized only for detectingthe presence of antibodies against SARS-CoV-2, not for any otherviruses or pathogens.PATIENT NOT FASTINGPERFORMED BY: [facility]eroMclaren Oakland6370 [facility] [id number] BY: [place] 464187 [facility] [id number] Methymalonic Acid, Serum (98993) [facility] Normal [facility]; [facility] Work Phone: Comment on above: This test was develo ped and its performance characteristicsdetermined by [employer]. It has not been cleared or approvedby the Food and Drug Administration. today; Test(s) 4-NWVP-ByH-2 Semi-Quant Total Ab; 374292-WYUK-EfE-4 Helder Ab Interphas not been FDA cleared or approved. This test hasbeen authorized by FDA under an Emergency Use Authorization(EUA). This test is only authorized for the duration of thedeclaration that circumstances exist justifying the authorizationof emergency use of in vitro diagnostics for detection and/ordiagnosis of COVID-19 under Section 564(b)(1) of the Act, 21U.S.C. 360bbb-3(b)(1), unless the authorization is terminated orrevoked sooner. This test has been authorized only for detectingthe presence of antibodies against SARS-CoV-2, not for any otherviruses or pathogens.PATIENT NOT FASTINGPERFORMED BY: CHRISTOPHER [employer] Fbguov6395 [facility] [id number] BY: mxHeroResearch [facility]1447 [facility] [id number] SARS-CoV-2 Semi-Quantitative Total Antibody, Helder (88902)Ordered By: New Home Sales Consultant on 08-27-2021 SARS-CoV-2 Semi-Quantitative Total Antibody, Helder (33830) >2500.0 Normal [facility]; [facility] Work Phone: Comment on above: Antibodies against t he SARS-CoV-2 spike protein receptor bindingdomain (RBD) were detected. It is yet undetermined what level ofantibody to SARS-CoV-2 spike protein correlates to immunity againstdeveloping symptomatic SARS-CoV-2 disease. Studies are underway tomeasure the quantitative levels of specific SARS-CoV-2 antibodiesfollowing vaccination. Such studies will provide valuable insightsinto the correlation between protection from vaccination andantibody levels. today; Test(s) 09833 5-DNTX-GlL-2 Semi-Quant Total Ab; 684063-WZZW-StE-2 Helder Ab Interphas not been FDA cleared or approved. This test hasbeen authorized by FDA under an Emergency Use Authorization(EUA). This test is only authorized for the duration of thedeclaration that circumstances exist justifying the authorizationof emergency use of in vitro diagnostics for detection and/ordiagnosis of COVID-19 under Section 564(b)(1) of the Act, 21U.S.C. 360bbb-3(b)(1), unless the authorization is terminated orrevoked sooner. This test has been authorized only for detectingthe presence of antibodies against SARS-CoV-2, not for any otherviruses or pathogens.PATIENT NOT FASTINGPERFORMED BY: [facility]6370 [facility] [id number] BY: [address] [id number] SARS-CoV-2 Semi-Quantitative Total Antibody, Helder (38056) Positive Normal [facility]; [facility] Work Phone: Comment on above: [place] [employer] Anti-S ARS-CoV-2 S today; Test(s) 6-IIXB-NjX-2 Semi-Quant Total Ab; 491709-PGPG-ZbM-6 Helder Ab Interphas not been FDA cleared or approved. This test hasbeen authorized by FDA under an Emergency Use Authorization(EUA). This test is only authorized for the duration of thedeclaration that circumstances exist justifying the authorizationof emergency use of in vitro diagnostics for detection and/ordiagnosis of COVID-19 under Section 564(b)(1) of the Act, 21U.S.C. 360bbb-3(b)(1), unless the authorization is terminated orrevoked sooner. This test has been authorized only for detectingthe presence of antibodies against SARS-CoV-2, not for any otherviruses or pathogens.PATIENT NOT FASTINGPERFORMED BY: [facility]6370 [facility] [id number] BY: [address] [id number] Vitamin B-12 (cyanocobalamin ) (56910)Ordered By: New Home Sales Consultant on 08-27-2021 Cobalamin (Vitamin B12) [Mass/Vol] 971 pg/mL Normal 232-1245 [facility]; [facility] Work Phone: Comment on above: today; Test(s) 8-RZJG-XtW-2 Semi-Quant Total Ab; 431445-WRDL-WgV-9 Heledr Ab Interphas not been FDA cleared or approved. This test hasbeen authorized by FDA under an Emergency Use Authorization(EUA). This test is only authorized for the duration of thedeclaration that circumstances exist justifying the authorizationof emergency use of in vitro diagnostics for detection and/ordiagnosis of COVID-19 under Section 564(b)(1) of the Act, 21U.S.C. 360bbb-3(b)(1), unless the authorization is terminated orrevoked sooner. This test has been authorized only for detectingthe presence of antibodies against SARS-CoV-2, not for any otherviruses or pathogens.PATIENT NOT FASTINGPERFORMED BY: CHRISTOPHER [facility] Vizntr3503 [facility] [id number] BY: BN [facility] Etocewzwck4537 [facility] [id number] XR Clavicle - left 2 Viewson 08-16-2021 IMPRESSION: Fixated left mid clavicular fracture, as detailed. Increased nonbridging callus, no bridging callus. 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 The most lateral screw extends into the coracoclavicular interval, unchanged. There is some increased callus formation, although this remains nonbridging with persistent fracture lucency. 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 The most lateral screw extends into the coracoclavicular interval, unchanged. There is some increased callus formation, although this remains nonbridging with persistent fracture lucency. IMPRESSION IMPRESSION: Fixated left mid clavicular fracture, as detailed. Increased nonbridging callus, no bridging callus. Supervisor Chemical: OLLIE Transcribe Date/Time: Aug 16 2021 1:35P Dictated by : STEPHY GONZALEZ MD This examination was interpreted and the report reviewed and electronically signed by: STEPHY GONZALEZ MD on Aug 16 2021 1:37PM EST [facility] Radiology Study observation (narrative) [facility] XR Clavicle - left 2 ViewsOr dered By: [facility] Provider on 08-16-2021 [facility] ASSAY OF LIPOPROTEIN(A) (835 56)Ordered By: New Home Sales Consultant on 06-29-2021 Lipoprotein a [Moles/Vol] 56.9 nmol/L Normal [facility]; [facility] Work Phone: Comment on above: Note: Values greater than or equal to 75.0 nmol/L may indicate an independent risk factor for CHD, but must be evaluated with caution when applied to non- populations due to the influence of genetic factors on Lp(a) across ethnicities. Test(s) 899049-BJE-P ; 559095-UPW-V; 314397-Dmljclrpsdzyy; 681394-Mtfbohrvrgp, Total; 424542-OUI-E (Total); 945493-Emnfq LDL-P; 628218-YPQ Size; 553870-QP-OZ Scorewas developed and its performance characteristics determinedby [employer]. It has not been cleared or approved by the Foodand Drug Administration.PATIENT WAS FASTINGPERFORMED BY: BN LabCoKimberly [place] 846647 [facility] [id number] BY: CB LabCoLuke [place] [id number] [facility] [id number] CBC WITH MANUAL DIFF (92569) Ordered By: New Home Sales Consultant on 06-29-2021 Basophils (Bld) [#/Vol] 0.1 10*3/uL Normal 0.0-0.2 [facility]; [facility] Work Phone: Comment on above: Test(s) 720407-DVD-N ; 838178-QXO-O; 337942-Hkzwsfmcvogta; 223807-Tounmvmmuac, Total; 556174-SCU-O (Total); 809613-Wpuqc LDL-P; 008256-ULD Size; 299248-PO-YI Scorewas developed and its performance characteristics determinedby [employer]. It has not been cleared or approved by the Foodand Drug Administration.PATIENT WAS FASTINGPERFORMED BY: [facility] [employer] [id number] BY: [facility] [facility]70 [facility] [id number] Basophils/100 WBC (Bld) 1 % Normal [facility]; [facility] Work Phone: Comment on above: Test(s) 182818-ZSX-R ; 636569-WAQ-P; 781764-Nddfgtabdzphj; 930470-Stjgdwjbvwg, Total; 051935-HQV-J (Total); 935837-Kjcds LDL-P; 567150-VUD Size; 457493-OM-SI Scorewas developed and its performance characteristics determinedby [employer]. It has not been cleared or approved by the Foodand Drug Administration.PATIENT WAS FASTINGPERFORMED BY: [facility] [address] [id number] BY: [facility] [facility]70 [facility] [id number] Eosinophils (Bld) [#/Vol] 0.2 10*3/uL Normal 0.0-0.4 [facility]; [facility] Work Phone: Comment on above: Test(s) 296203-EXU-Y ; 335176-KKY-P; 069503-Yxndplxaxawnk; 263312-Lqrdebwrqbz, Total; 356480-AQY-Y (Total); 203730-Abhbb LDL-P; 484577-VSY Size; 769630-XH-RA Scorewas developed and its performance characteristics determinedby [employer]. It has not been cleared or approved by the Foodand Drug Administration.PATIENT WAS FASTINGPERFORMED BY: [facility] [address] [id number] BY: [employer] Iuqepm4564 [facility] [id number] Eosinophils/100 WBC (Bld) 3 % Normal [facility]; [facility] Work Phone: Comment on above: Test(s) 293069-XGI-Q ; 546786-WVX-O; 930344-Ozruxjnmxhdug; 412108-Gexnkdkaoxl, Total; 974402-HMI-F (Total); 842178-Yqghr LDL-P; 957611-FEH Size; 430477-VV-HU Scorewas developed and its performance characteristics determinedby [employer]. It has not been cleared or approved by the Foodand Drug Administration.PATIENT WAS FASTINGPERFORMED BY: [employer] [address] [id number] BY: [employer]6370 [facility] [id number] Erythrocyte distribution width (RBC) [Ratio] 13.0 % Normal 11.7-15.4 [facility]; [facility] Work Phone: Comment on above: Test(s) 921203-UOZ-G ; 698947-PFB-Y; 559092-Gexlapckcnkbb; 750436-Qtjyklnlnsa, Total; 207227-FAK-I (Total); 995661-Yfjko LDL-P; 688056-MDV Size; 764814-OF-VT Scorewas developed and its performance characteristics determinedby [employer]. It has not been cleared or approved by the Foodand Drug Administration.PATIENT WAS FASTINGPERFORMED BY: [employer] [address] [id number] BY: [employer] Zuygeo9486 [facility] [id number] Hematocrit (Bld) [Volume fraction] 41.8 % Normal 34.0-46.6 [facility]; [facility] Work Phone: Comment on above: Test(s) 537347-BYO-E ; 024081-NZW-W; 586572-Gbvrsuhwkkkur; 591818-Goutrbneyus, Total; 576203-DQW-B (Total); 117116-Mvzwc LDL-P; 406662-RKF Size; 635484-OT-FY Scorewas developed and its performance characteristics determinedby [employer]. It has not been cleared or approved by the Foodand Drug Administration.PATIENT WAS FASTINGPERFORMED BY: [employer] [address] [id number] BY: [employer]70 [facility] [id number] Hemoglobin (Bld) [Mass/Vol] 13.8 g/dL Normal 11.1-15.9 [facility]; [facility] Work Phone: Comment on above: Test(s) 398733-WLP-D ; 290883-ICJ-K; 243816-Cccsfuerlabkn; 784100-Jecsiqwudxx, Total; 409711-FYL-T (Total); 880039-Vaufw LDL-P; 721395-CPN Size; 733428-QD-HF Scorewas developed and its performance characteristics determinedby [employer]. It has not been cleared or approved by the Foodand Drug Administration.PATIENT WAS FASTINGPERFORMED BY: [employer] [address] [id number] BY: [employer]6370 [facility] [id number] Immature granulocytes (Bld) [#/Vol] 0.0 10*3/uL Normal 0.0-0.1 [facility]; [facility] Work Phone: Comment on above: Test(s) 768102-WJJ-I ; 660819-UYO-N; 510425-Ambpavbmsxihf; 842729-Puuoqslevvs, Total; 983218-AOH-Z (Total); 825447-Vfsmc LDL-P; 201582-AXV Size; 357923-WE-XL Scorewas developed and its performance characteristics determinedby [employer]. It has not been cleared or approved by the Foodand Drug Administration.PATIENT WAS FASTINGPERFORMED BY: [employer] [id number] BY: [employer] Fikybh0423 [facility] [id number] Immature granulocytes/100 WBC (Bld) 0 % Normal [facility]; [facility] Work Phone: Comment on above: Test(s) 173070-LZY-N ; 802076-SMZ-K; 498361-Yuchxwmwknhcs; 537941-Ojqqrvdpeyu, Total; 318772-KFF-P (Total); 670827-Lnmlf LDL-P; 858885-TLQ Size; 103149-OW-KM Scorewas developed and its performance characteristics determinedby [employer]. It has not been cleared or approved by the Foodand Drug Administration.PATIENT WAS FASTINGPERFORMED BY: [employer] [address] [id number] BY: [employer]70 [facility] [id number] Lymphocytes (Bld) [#/Vol] 2.1 10*3/uL Normal 0.7-3.1 [facility]; [facility] Work Phone: Comment on above: Test(s) 071341-OGV-W ; 403471-SGK-Y; 725437-Irzhtvjngszpf; 784468-Cgwdzqjxqms, Total; 416039-NOT-L (Total); 786226-Sahbp LDL-P; 555302-URQ Size; 991184-KH-LJ Scorewas developed and its performance characteristics determinedby [employer]. It has not been cleared or approved by the Foodand Drug Administration.PATIENT WAS FASTINGPERFORMED BY: [employer] [address] [id number] BY: [employer] TherapeuticsCooper University HospitalBqhfnu8151 [facility] [id number] Lymphocytes/100 WBC (Bld) 38 % Normal [facility]; [facility] Work Phone: Comment on above: Test(s) 872203-VYT-Z ; 597893-TXQ-T; 299902-Dqsckikovpkor; 910380-Yjnogqzoesk, Total; 423672-OTF-N (Total); 595624-Nydja LDL-P; 793556-LOX Size; 731468-ZK-QW Scorewas developed and its performance characteristics determinedby [employer]. It has not been cleared or approved by the Foodand Drug Administration.PATIENT WAS FASTINGPERFORMED BY: [employer] [address] [id number] BY: [employer]6370 [facility] [id number] MCH (RBC) [Entitic mass] 32.3 pg Normal 26.6-33.0 [facility] Internal Medicine; [facility] Work Phone: Comment on above: Test(s) 861215-AJT-Y ; 718237-VDH-L; 854567-Cimsvrgkpnrnp; 881805-Lgecekwmxph, Total; 491874-DUR-C (Total); 893683-Xstib LDL-P; 404233-WNL Size; 212621-IP-GB Scorewas developed and its performance characteristics determinedby [employer]. It has not been cleared or approved by the Foodand Drug Administration.PATIENT WAS FASTINGPERFORMED BY: [employer] [address] [id number] BY: [employer] Lgpidk4534 [facility] [id number] MCHC (RBC) [Mass/Vol] 33.0 g/dL Normal 31.5-35.7 [facility] Internal [facility]; [facility] Work Phone: Comment on above: Test(s) 873166-FFV-S ; 581717-DSP-T; 583902-Qmjgutqswemzv; 757518-Sezsywlqdfp, Total; 641455-UNI-N (Total); 518384-Hjown LDL-P; 560513-UVW Size; 663059-MX-YL Scorewas developed and its performance characteristics determinedby [employer]. It has not been cleared or approved by the Foodand Drug Administration.PATIENT WAS FASTINGPERFORMED BY: [employer] [address] [id number] BY: [employer]6370 [facility] [id number] MCV (RBC) [Entitic vol] 98 fL Abnormal 79-97 [facility]; [facility] Work Phone: Comment on above: Test(s) 609132-FEI-K ; 914317-JAJ-A; 904681-Dmmqvjsyyluwt; 344383-Isouymdgwls, Total; 533795-NBG-T (Total); 718084-Zcekr LDL-P; 982368-RFG Size; 840150-KQ-ON Scorewas developed and its performance characteristics determinedby [employer]. It has not been cleared or approved by the Foodand Drug Administration.PATIENT WAS FASTINGPERFORMED BY: [employer] [address] [id number] BY: [employer]70 [facility]Washington [facility] [id number] Monocytes (Bld) [#/Vol] 0.6 10*3/uL Normal 0.1-0.9 [facility]; [facility] Work Phone: Comment on above: Test(s) 378287-RDS-Z ; 275152-VCW-I; 571581-Tohzyylfipnle; 404433-Crkkevrqfmd, Total; 190856-PPZ-S (Total); 600675-Xhytt LDL-P; 754871-CLS Size; 726157-BL-OJ Scorewas developed and its performance characteristics determinedby [employer]. It has not been cleared or approved by the Foodand Drug Administration.PATIENT WAS FASTINGPERFORMED BY: [employer] [address] [id number] BY: [employer]6370 [facility]University [facility] [id number] Monocytes/100 WBC (Bld) 11 % Normal [facility]; [facility] Work Phone: Comment on above: Test(s) 286650-WWD-J ; 471545-FFF-V; 785442-Cowvrsdvttymq; 853453-Wckcpipivuq, Total; 735374-DZL-Z (Total); 653313-Bbeqx LDL-P; 058874-IXQ Size; 753183-RK-MX Scorewas developed and its performance characteristics determinedby [employer]. It has not been cleared or approved by the Foodand Drug Administration.PATIENT WAS FASTINGPERFORMED BY: [employer] [address] [id number] BY: [employer]6370 [facility] [id number] Neutrophils (Bld) [#/Vol] 2.5 10*3/uL Normal 1.4-7.0 [facility]; [facility] Work Phone: Comment on above: Test(s) 573355-RGA-A ; 100446-XYG-Z; 910845-Sgiwryvgeqzuw; 091966-Yhzthvcciqn, Total; 388484-ZSF-Z (Total); 708323-Dhczs LDL-P; 602760-AJK Size; 090498-YD-GY Scorewas developed and its performance characteristics determinedby [employer]. It has not been cleared or approved by the Foodand Drug Administration.PATIENT WAS FASTINGPERFORMED BY: [employer] [address] [id number] BY: [employer]6370 [facility] ApparelCaroMont Regional Medical Center [id number] Neutrophils/100 WBC (Bld) 47 % Normal [facility]; [facility] Work Phone: Comment on above: Test(s) 017765-IOB-H ; 864256-ODD-P; 076111-Xrgadkbyiqbsu; 476385-Wzxppeeutpu, Total; 248514-DTK-W (Total); 787756-Tczaa LDL-P; 075458-TXE Size; 710198-PK-DA Scorewas developed and its performance characteristics determinedby [employer]. It has not been cleared or approved by the Foodand Drug Administration.PATIENT WAS FASTINGPERFORMED BY: [employer] [address] [id number] BY: [employer] Rqeijk3410 [facility]University [facility] [id number] Platelets (Bld) [#/Vol] 341 10*3/uL Normal 150-450 [facility]; [facility] Work Phone: Comment on above: Test(s) 041246-KQP-D ; 355361-HVB-Y; 300745-Ztoopstfhqmbj; 534979-Qpzsjjkqhsq, Total; 539133-WPK-J (Total); 956025-Dxglt LDL-P; 480915-FEK Size; 163473-ZG-VU Scorewas developed and its performance characteristics determinedby [employer]. It has not been cleared or approved by the Foodand Drug Administration.PATIENT WAS FASTINGPERFORMED BY: [employer] [id number] BY: [employer]70 [facility] [id number] RBC (Bld) [#/Vol] 4.27 10*6/uL Normal 3.77-5.28 [facility]; [facility] Work Phone: Comment on above: Test(s) 723094-IVP-S ; 618928-WMB-C; 997016-Didartgiaagfw; 250641-Livwtnfqhdz, Total; 871920-LPT-X (Total); 405220-Obvpi LDL-P; 600668-CCS Size; 918604-AK-TS Scorewas developed and its performance characteristics determinedby [employer]. It has not been cleared or approved by the Foodand Drug Administration.PATIENT WAS FASTINGPERFORMED BY: [facility] [id number] BY: [employer]6370 [facility] [id number] WBC (Bld) [#/Vol] 5.6 10*3/uL Normal 3.4-10.8 [facility]; [facility] Work Phone: Comment on above: Test(s) 116826-NZQ-B ; 928141-PKI-A; 788288-Oinjbowjpyaum; 245522-Haoecqbcgui, Total; 663504-QGO-N (Total); 264283-Elnjr LDL-P; 516462-FVB Size; 539384-CG-RC Scorewas developed and its performance characteristics determinedby [employer]. It has not been cleared or approved by the Foodand Drug Administration.PATIENT WAS FASTINGPERFORMED BY: [employer] [address] [id number] BY: [employer] TherapeuticsCooper University HospitalMgpaim4768 [facility] [id number] Homocysteine, Plasma (42971) Ordered By: New Home Sales Consultant on 06-29-2021 Homocysteine [Moles/Vol] 13.3 umol/L Normal 0.0-19.2 [facility]; [facility] Work Phone: Comment on above: Test(s) 479450-FSA-C ; 421999-GTA-C; 308088-Fofsnunxjtwsi; 735599-Kqdraoonpni, Total; 696360-KXZ-E (Total); 016313-Rxwjy LDL-P; 969540-ZVW Size; 202228-SX-EY Scorewas developed and its performance characteristics determinedby [employer]. It has not been cleared or approved by the Foodand Drug Administration.PATIENT WAS FASTINGPERFORMED BY: [employer] [address] [id number] BY: [facility] [facility]70 [facility]antesUniversity [facility] [id number] MICROALBUMINOrdered By: Syst em Respiratory Care Instructor on 06-29-2021 Albumin DL <= 20 mg/L (U) [Mass/Vol] mg/dL Normal [facility]; [facility] Work Phone: Comment on above: Test(s) 095409-TJX-T ; 038806-CKK-N; 901890-Pexyojhmoywqa; 475985-Dhqehgxtchq, Total; 469449-PEI-U (Total); 748782-Uwsab LDL-P; 376265-IZG Size; 725951-OK-QZ Scorewas developed and its performance characteristics determinedby [employer]. It has not been cleared or approved by the Foodand Drug Administration.PATIENT WAS FASTINGPERFORMED BY: [employer] [address] [id number] BY: [employer]70 [facility] [id number] Albumin/Creatinine (U) [Mass ratio] <4 Normal 0-29 [facility]; [facility] Work Phone: Comment on above: Normal: 0 - 29 Moder ately increased: 30 - 300 Severely increased: >300 Test(s) 120809-IFV-M ; 002410-LUI-J; 035778-Rlwiwljwbjyqa; 018310-Kpkrznkiqrj, Total; 019734-MLW-H (Total); 394098-Usnkg LDL-P; 353504-WLY Size; 557420-JR-QW Scorewas developed and its performance characteristics determinedby [employer]. It has not been cleared or approved by the Foodand Drug Administration.PATIENT WAS FASTINGPERFORMED BY: Criers Podium[address] [id number] BY: CrowdHall6370 [facility] [id number] Creatinine (U) [Mass/Vol] 74.7 mg/dL Normal [facility]; [facility] Work Phone: Comment on above: Test(s) 550881-MTJ-L ; 040752-ADS-W; 438047-Qfbnifxfemdsj; 029124-Ellflyrzrsl, Total; 279678-KTV-A (Total); 003553-Hftog LDL-P; 610718-HDA Size; 765806-EM-MQ Scorewas developed and its performance characteristics determinedby [employer]. It has not been cleared or approved by the Foodand Drug Administration.PATIENT WAS FASTINGPERFORMED BY: ShopIt [address] [id number] BY: [employer] Bsdxel2308 [facility] [id number] Metabolic Panel, Comprehensi ve (27581)Ordered By: New Home Sales Consultant on 06-29-2021 Albumin [Mass/Vol] 5.0 g/dL Abnormal 3.7-4.7 [facility] Internal Medicine; [facility] Work Phone: Comment on above: Test(s) 401132-NXY-D ; 685944-ODJ-F; 620495-Zshodbeochcxw; 943877-Lzkvgmsrtdr, Total; 845671-JAU-B (Total); 649990-Auigp LDL-P; 088562-EVB Size; 133120-TI-ZN Scorewas developed and its performance characteristics determinedby [employer]. It has not been cleared or approved by the Foodand Drug Administration.PATIENT WAS FASTINGPERFORMED BY: [employer]It [address] [id number] BY: [employer]70 [facility] [id number] Albumin/Globulin [Mass ratio] 2.1 {ratio} Normal 1.2-2.2 [facility]; [facility] Work Phone: Comment on above: Test(s) 846729-TLD-V ; 558967-JOP-G; 562634-Ummaxoaivbbgh; 265993-Ayelihreljl, Total; 462437-FGF-G (Total); 667049-Enwvy LDL-P; 019803-ZUC Size; 020173-RN-ZK Scorewas developed and its performance characteristics determinedby [employer]. It has not been cleared or approved by the Foodand Drug Administration.PATIENT WAS FASTINGPERFORMED BY: [employer]It [address] [id number] BY: [employer] Sjohdh4614 [facility] [id number] ALP [Catalytic activity/Vol] 78 U/L Normal 44-121 [facility]; [facility] Work Phone: Comment on above: Please note refere nce interval change Test(s) 975218-JXL-Z ; 188360-IYZ-U; 314762-Lozrwabeknfol; 166700-Eseuvbzocth, Total; 625536-IRG-I (Total); 386173-Mfmlv LDL-P; 079777-DDM Size; 822029-FW-ZQ Scorewas developed and its performance characteristics determinedby [employer]. It has not been cleared or approved by the Foodand Drug Administration.PATIENT WAS FASTINGPERFORMED BY: [employer]It [address] [id number] BY: CrowdHall6370 [facility] [id number] ALT [Catalytic activity/Vol] 19 U/L Normal 0-32 [facility]; [facility] Work Phone: Comment on above: Test(s) 177532-IFJ-F ; 183398-DJA-N; 354153-Ekfscnfuempfs; 340858-Hfxbjqmgkgr, Total; 827323-WQD-G (Total); 508705-Hrvqz LDL-P; 630112-JSJ Size; 676943-EB-HT Scorewas developed and its performance characteristics determinedby [employer]. It has not been cleared or approved by the Foodand Drug Administration.PATIENT WAS FASTINGPERFORMED BY: [employer]It [address] [id number] BY: CrowdHall6370 [facility] [id number] AST [Catalytic activity/Vol] 27 U/L Normal 0-40 [facility]; [facility] Work Phone: Comment on above: Test(s) 635209-AXU-H ; 903360-APY-E; 832742-Sxsuwjkhcuipo; 915870-Yxqxzykelyb, Total; 253444-EPC-U (Total); 656510-Fnwaa LDL-P; 573961-WYI Size; 311283-DW-VZ Scorewas developed and its performance characteristics determinedby [employer]. It has not been cleared or approved by the Foodand Drug Administration.PATIENT WAS FASTINGPERFORMED BY: ShopIt [address] [id number] BY: [employer]ialin6370 [facility] [id number] Bilirubin [Mass/Vol] 0.6 mg/dL Normal 0.0-1.2 [facility] rehensive Internal Medicine; [facility] Work Phone: Comment on above: Test(s) 422492-GYB-S ; 300168-CYO-I; 628930-Ozfzdqyzbdpts; 405982-Gvitauhjtyc, Total; 944073-JMM-Q (Total); 470988-Jwthi LDL-P; 219262-BOP Size; 965157-GC-KB Scorewas developed and its performance characteristics determinedby [employer]. It has not been cleared or approved by the Foodand Drug Administration.PATIENT WAS FASTINGPERFORMED BY: [employer] [id number] BY: [employer] Oqnkjv3716 [facility] [id number] Calcium [Mass/Vol] 9.8 mg/dL Normal 8.7-10.3 [facility] Internal Medicine; [facility] Work Phone: Comment on above: Test(s) 161544-DVA-K ; 111620-FOL-J; 408321-Lsasmevhhiyyi; 284080-Baeryfmkyju, Total; 192123-ZFM-I (Total); 568544-Lxgez LDL-P; 040175-CQM Size; 575634-VP-EZ Scorewas developed and its performance characteristics determinedby [employer]. It has not been cleared or approved by the Foodand Drug Administration.PATIENT WAS FASTINGPERFORMED BY: ShopIt [address] [id number] BY: [employer]70 [address] MyDROBECaroMont Regional Medical Center [id number] Chloride [Moles/Vol] 102 mmol/L Normal 96-106 [facility] Internal Medicine; [facility] Work Phone: Comment on above: Test(s) 835449-MTI-R ; 707507-LXL-I; 042074-Wrrbjvacrmarg; 380322-Sqhpioivbdk, Total; 717087-UCL-R (Total); 278370-Gejeg LDL-P; 954301-CDL Size; 100088-BN-WJ Scorewas developed and its performance characteristics determinedby [employer]. It has not been cleared or approved by the Foodand Drug Administration.PATIENT WAS FASTINGPERFORMED BY: ShopIt [address] [id number] BY: [employer] Amabrp2868 [facility] [id number] CO2 [Moles/Vol] 22 mmol/L Normal 20-29 [facility] Internal Medicine; [facility] Work Phone: Comment on above: Test(s) 508332-TFQ-D ; 352403-ETA-L; 831637-Gxafwxeyciwni; 202469-Zuaihljfcue, Total; 151804-PIH-D (Total); 655357-Qfnti LDL-P; 067691-GHX Size; 476349-SD-IE Scorewas developed and its performance characteristics determinedby [employer]. It has not been cleared or approved by the Foodand Drug Administration.PATIENT WAS FASTINGPERFORMED BY: [employer] [address] [id number] BY: [employer] Yzalfz9355 [facility] [id number] Creatinine [Mass/Vol] 0.80 mg/dL Normal 0.57-1.00 [facility] Internal Medicine; [facility] Work Phone: Comment on above: Test(s) 174808-JXV-R ; 646807-LYR-X; 443211-Rymocjkdxktzk; 352453-Gdzbsugsnum, Total; 762812-THV-U (Total); 886424-Stwby LDL-P; 943511-LSK Size; 830520-IO-QL Scorewas developed and its performance characteristics determinedby [employer]. It has not been cleared or approved by the Foodand Drug Administration.PATIENT WAS FASTINGPERFORMED BY: [employer] [address] [id number] BY: [employer] Hmrnia7474 [facility] [id number] GFR/1.73 sq M.predicted among blacks CKD-EPI (S/P/Bld) [Vol rate/Area] 85 mL/min/1.73 Normal [facility]; [facility] Work Phone: Comment on above: [facility] currently [facility] eGFR in compliance with the current recommendations of the National Kidney Foundation. [facility] will update reporting as new guidelines are published from the NKF-ASN Task force. Test(s) 605077-CEY-A ; 119598-JUJ-E; 479136-Djkaacvoilmjr; 902321-Ftsdocpsdfq, Total; 612683-CYY-B (Total); 297432-Sjfms LDL-P; 383069-KWE Size; 928448-JI-PO Scorewas developed and its performance characteristics determinedby [employer]. It has not been cleared or approved by the Foodand Drug Administration.PATIENT WAS FASTINGPERFORMED BY: [employer]It [address] [id number] BY: [employer] [place] [address] [id number] GFR/1.73 sq M.predicted among non-blacks CKD-EPI (S/P/Bld) [Vol rate/Area] 74 mL/min/1.73 Normal [facility]; [facility] Work Phone: Comment on above: Test(s) 039293-WHB-J ; 369755-SEG-S; 454640-Rqdanowcryrxn; 659083-Jaegodvaspu, Total; 491512-VHG-Y (Total); 834387-Jywtu LDL-P; 141610-ROL Size; 359644-QJ-WH Scorewas developed and its performance characteristics determinedby [employer]. It has not been cleared or approved by the Foodand Drug Administration.PATIENT WAS FASTINGPERFORMED BY: ShopIt [address] [id number] BY: [employer] Bmxefd1306 [facility] [id number] Globulin (S) [Mass/Vol] 2.4 g/dL Normal 1.5-4.5 [facility]; [facility] Work Phone: Comment on above: Test(s) 891312-ALF-H ; 990351-JTQ-J; 762030-Bdoxdbwooafig; 320445-Steowrspdla, Total; 456819-DBI-I (Total); 194016-Damby LDL-P; 780916-ZEU Size; 442780-QO-EJ Scorewas developed and its performance characteristics determinedby [employer]. It has not been cleared or approved by the Foodand Drug Administration.PATIENT WAS FASTINGPERFORMED BY: BN [employer] [id number] BY: [employer] Mjoxjr4872 [facility] [id number] Glucose [Mass/Vol] 87 mg/dL Normal 65-99 [facility] Internal [facility]; [facility] Work Phone: Comment on above: Test(s) 953720-PTW-J ; 686474-NAE-O; 614046-Vvjpqjfuiavjl; 579342-Vozadbmrqtm, Total; 999536-BDK-N (Total); 937041-Jcsqr LDL-P; 505664-OIJ Size; 733174-MG-YL Scorewas developed and its performance characteristics determinedby [employer]. It has not been cleared or approved by the Foodand Drug Administration.PATIENT WAS FASTINGPERFORMED BY: ShopIt [address] [id number] BY: [employer]dHall6370 [facility]University [facility] [id number] Potassium [Moles/Vol] 4.4 mmol/L Normal 3.5-5.2 [facility] Internal Medicine; [facility] Work Phone: Comment on above: Test(s) 009917-YDB-H ; 179878-MFU-Q; 588818-Twqctvfqfgayf; 825907-Whokemrcfcf, Total; 387703-YFN-X (Total); 366744-Vwuqn LDL-P; 794978-GBG Size; 163201-FJ-SV Scorewas developed and its performance characteristics determinedby [employer]. It has not been cleared or approved by the Foodand Drug Administration.PATIENT WAS FASTINGPERFORMED BY: Exose[employer] [id number] BY: [employer] Iefzst0927 [facility] [id number] Protein [Mass/Vol] 7.4 g/dL Normal 6.0-8.5 [facility] Internal Medicine; [facility] Work Phone: Comment on above: Test(s) 578870-FIJ-N ; 018272-OYD-N; 000179-Lpwanxxcqvmfr; 636376-Wdplnajomuw, Total; 947890-JRL-Q (Total); 790512-Mlrgl LDL-P; 987838-URF Size; 697406-SG-CQ Scorewas developed and its performance characteristics determinedby [employer]. It has not been cleared or approved by the Foodand Drug Administration.PATIENT WAS FASTINGPERFORMED BY: ShopIt [address] [id number] BY: CrowdHall6370 [address] ZytoprotecWashington Regional Medical Center [id number] Sodium [Moles/Vol] 139 mmol/L Normal 134-144 [facility] Internal [facility]; [facility] Work Phone: Comment on above: Test(s) 190854-SPO-J ; 944522-HOK-G; 904450-Tlnjwdzntdanf; 700697-Igiyeuvzjav, Total; 598194-AGK-D (Total); 778516-Xcquk LDL-P; 500296-WGE Size; 344621-EK-KM Scorewas developed and its performance characteristics determinedby [employer]. It has not been cleared or approved by the Foodand Drug Administration.PATIENT WAS FASTINGPERFORMED BY: ShopIt [address] [id number] BY: CrowdHall6370 [address] MyDROBECaroMont Regional Medical Center [id number] Urea nitrogen [Mass/Vol] 17 mg/dL Normal 8-27 [facility] Internal Medicine; [facility] Work Phone: Comment on above: Test(s) 704547-HLN-E ; 099617-LBD-S; 217617-Phpwfqyebvtbp; 589806-Qomhpukdvkk, Total; 879365-OHW-T (Total); 924089-Bojco LDL-P; 529927-XLC Size; 530750-VH-QH Scorewas developed and its performance characteristics determinedby [employer]. It has not been cleared or approved by the Foodand Drug Administration.PATIENT WAS FASTINGPERFORMED BY: ShopIt [address] [id number] BY: [employer]70 Centerpointe HospitalVoalteWashington Regional Medical Center [id number] Urea nitrogen/Creatinine [Mass ratio] 21 mg/mg Normal 12-28 [facility]; [facility] Work Phone: Comment on above: Test(s) 812807-UPF-X ; 865219-TCH-H; 236153-Uslznxbdslcmp; 828614-Opizbdgjqud, Total; 858631-PMF-K (Total); 339326-Jmmvf LDL-P; 119088-PEQ Size; 712266-CL-OR Scorewas developed and its performance characteristics determinedby [employer]. 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 It has not been cleared or approved by the Foodand Drug Administration.PATIENT WAS FASTINGPERFORMED BY: Criers [employer] [id number] BY: [employer] Jugsvp5877 [facility] [id number]; fu 9-28 db Cholesterol in HDL [Mass/Vol] 98 mg/dL Normal [facility]; [facility] Work Phone: Comment on above: Test(s) 757182-PYT-W ; 409557-FZD-Y; 273470-Wgkcakuctfkip; 742661-Xvsagdrajyb, Total; 691062-CIQ-O (Total); 616613-Jothp LDL-P; 862108-QME Size; 181348-GE-SX Scorewas developed and its performance characteristics determinedby [employer]. It has not been cleared or approved by the FoodFastDue Drug Administration.PATIENT WAS FASTINGPERFORMED BY: ShopIt [address] [id number] BY: ExosectMesilla Valley HospitalUetweo2635 [facility] [id number]; fu 9 db Lipoprotein.alpha [Moles/Vol] 40.5 umol/L Normal [facility]; [facility] Work Phone: Comment on above: Test(s) 989016-UXN-F ; 387004-RST-Z; 869376-Inwbrtqynfrmy; 669542-Vrqhhwerwgp, Total; 291048-WUJ-E (Total); 754265-Jlqli LDL-P; 565571-JHK Size; 557293-YS-LP Scorewas developed and its performance characteristics determinedby [employer]. It has not been cleared or approved by the Foodand Drug Administration.PATIENT WAS FASTINGPERFORMED BY: ShopIt [address] [id number] BY: CrowdHall6370 [facility] [id number]; 07-13 db Lipoprotein.beta.subp article [Entitic length] 21.7 nm Normal [facility]; [facility] Work Phone: Comment on above: INTERPRETATIVE INFORMATION PARTICLE CONCENTRATION AND SIZE <--Lower CVD Risk Higher CVD Risk--> LDL AND HDL PARTICLES Percentile in Reference Population HDL-P (total) High 75th 50th 25th Low >34.9 34.9 30.5 26.7 <26.7 . Small LDL-P Low 25th 50th 75th High <117 117 527 839 >839 . LDL Size <-Large (Pattern A)-> <-Small (Pattern B)-> 23.0 20.6 20.5 19.0 Small LDL-P and LDL Size are associated with CVD risk, but not afterLDL-P is taken into account. Test(s) 713267-PBK-F ; 908522-DLO-G; 167831-Ffewvghbnzlvn; 609057-Iilrgwsmusi, Total; 986344-ZVB-L (Total); 345784-Lhslb LDL-P; 302392-LRR Size; 441546-OZ-VQ Scorewas developed and its performance characteristics determinedby [employer]. It has not been cleared or approved by the Foodand Drug Administration.PATIENT WAS FASTINGPERFORMED BY: Criers [employer]ium[address] [id number] BY: Potential [facility] [id number]; fu 9- db Lipoprotein.beta.subp article [Moles/Vol] 1797 nmol/L Abnormal Comprehensiv e Internal Medicine; [facility] Work Phone: Comment on above: Low < 1000 Moderate 1000 - 1299 Borderline-High 1300 - 1599 High 1600 - 2000 Very High > 2000 Test(s) 052520-NAD-D ; 353991-WIY-E; 114934-Prcpxemeahltb; 069528-Komlizxnjtr, Total; 132168-CLH-A (Total); 986215-Tyrlb LDL-P; 142621-NGI Size; 753171-VW-IQ Scorewas developed and its performance characteristics determinedby [employer]. It has not been cleared or approved by the Foodand Drug Administration.PATIENT WAS FASTINGPERFORMED BY: ShopIt [address] [id number] BY: [employer]70 [facility] [id number]; fu 9-28 db Lipoprotein.beta.subp article.small [Moles/Vol] <90 Normal [facility]; [facility] Work Phone: Comment on above: Test(s) 342449-DEU-Q ; 355561-GFR-E; 468845-Wmlzjmxvdoaiq; 421512-Zycmhetyfus, Total; 313045-KON-R (Total); 218888-Gsuqf LDL-P; 488147-MZD Size; 389331-QR-JL Scorewas developed and its performance characteristics determinedby [employer]. It has not been cleared or approved by the Foodand Drug Administration.PATIENT WAS FASTINGPERFORMED BY: ShopIt [address] [id number] BY: [employer] Ivmpmq7463 [facility] [id number]; fu 07-13 db Triglyceride [Mass/Vol] 66 mg/dL Normal 0-149 [facility] Internal Medicine; [facility] Work Phone: Comment on above: Test(s) 518633-AYU-O ; 932433-FRM-K; 800201-Hxpmwgpapeavs; 422236-Yifipbyqolt, Total; 409136-YZE-R (Total); 796631-Jhawt LDL-P; 662384-AFF Size; 160462-ER-KI Scorewas developed and its performance characteristics determinedby [employer]. It has not been cleared or approved by the Foodand Drug Administration.PATIENT WAS FASTINGPERFORMED BY: [employer] [address] [id number] BY: [employer] Klmlou9982 [facility] [id number]; fu 07-13 db NMR Profile (75068) 186 mg/dL Abnormal 0-99 [facility]; [facility] Work Phone: Comment on above: . Optimal < 100 Abov e optimal 100 - 129 Borderline 130 - 159 High 160 - 189 Very high > 189 . Test(s) 193166-KMF-X ; 018678-XMZ-R; 683795-Dmtzgetxhdxjp; 530515-Zeurvfzylmp, Total; 578519-ZBJ-F (Total); 756633-Eefhx LDL-P; 350415-LUY Size; 778169-SY-AD Scorewas developed and its performance characteristics determinedby [employer]. It has not been cleared or approved by the Foodand Drug Administration.PATIENT WAS FASTINGPERFORMED BY: [employer]It [address] [id number] BY: [employer] Ucmyzq7921 [address] ZytoprotecWashington Regional Medical Center [id number]; fu 9-28 db URINALYSIS (90804)Ordered By : New Home Sales Consultant on 06-29-2021 Appearance (U) Clear Normal Comprehens keyon Internal Medicine; [facility] Work Phone: Comment on above: Test(s) 090591-KUM-A ; 967101-RTN-A; 871237-Nqxovvdsehzuc; 831919-Mhdqxvwfzsw, Total; 847746-ERP-M (Total); 468674-Xiige LDL-P; 400514-MDN Size; 579794-IE-MC Scorewas developed and its performance characteristics determinedby [employer]. It has not been cleared or approved by the Foodand Drug Administration.PATIENT WAS FASTINGPERFORMED BY: Criers [employer] [id number] BY: [employer]70 ePartnersWashington Regional Medical Center [id number] Bilirubin Ql (U) Negative Normal Comprehe nsive Internal Medicine; [facility] Work Phone: Comment on above: Test(s) 409986-RMT-T ; 791605-NIF-P; 492902-Ylsivmzzmgvou; 939696-Ljuffkbnyzy, Total; 281057-NEV-C (Total); 617326-Ouzvp LDL-P; 177835-GSV Size; 456693-CG-PT Scorewas developed and its performance characteristics determinedby [employer]. It has not been cleared or approved by the Foodand Drug Administration.PATIENT WAS FASTINGPERFORMED BY: [employer]It [address] [id number] BY: [employer]6370 [address] MyDROBECaroMont Regional Medical Center [id number] Color (U) Yellow Normal [facility]; [facility] Work Phone: Comment on above: Test(s) 529723-DIJ-S ; 225659-BYH-W; 179197-Pzrzueeghtgde; 417280-Rvjbemnnxlk, Total; 014320-KJJ-J (Total); 418519-Prhwl LDL-P; 125740-NKM Size; 734569-BW-KZ Scorewas developed and its performance characteristics determinedby [employer]. It has not been cleared or approved by the Foodand Drug Administration.PATIENT WAS FASTINGPERFORMED BY: [employer] [address] [id number] BY: [employer] Ghvaww6747 [facility] [id number] Glucose Ql (U) Negative Normal Comprehens keyon Internal Medicine; [facility] Work Phone: Comment on above: Test(s) 907679-DBI-J ; 735185-CRV-H; 618003-Nlaujzbqmanjp; 060305-Ekdgjiitwqu, Total; 543212-ZEY-R (Total); 353733-Zqpla LDL-P; 816799-TQK Size; 565228-YD-PY Scorewas developed and its performance characteristics determinedby [employer]. It has not been cleared or approved by the Foodand Drug Administration.PATIENT WAS FASTINGPERFORMED BY: [employer] [address] [id number] BY: [employer] Dijdnu0822 [facility] [id number] Hemoglobin Ql (U) Negative Normal Compreh ensive Internal Medicine; [facility] Work Phone: Comment on above: Test(s) 138171-INT-R ; 561399-GAC-C; 243907-Zhqgpxzjjtosx; 477215-Amahpbcxpeu, Total; 206088-XEW-B (Total); 475926-Tlslv LDL-P; 010654-NDI Size; 716285-XW-PZ Scorewas developed and its performance characteristics determinedby [employer]. It has not been cleared or approved by the Foodand Drug Administration.PATIENT WAS FASTINGPERFORMED BY: Criers [employer] [id number] BY: CrowdHall6370 [facility]antesUniversity [facility] [id number] Ketones Ql (U) Negative Normal Comprehens keyon Internal Medicine; [facility] Work Phone: Comment on above: Test(s) 623779-OHT-F ; 954020-UWG-F; 032864-Awyysippjytyy; 677722-Btzjljdgzpk, Total; 845336-WOU-K (Total); 515652-Rybcu LDL-P; 014245-IND Size; 160759-ZK-NI Scorewas developed and its performance characteristics determinedby [employer]. It has not been cleared or approved by the Foodand Drug Administration.PATIENT WAS FASTINGPERFORMED BY: Criers [employer]ium[address] [id number] BY: [employer]Hall6370 OL[facility] ApparelCaroMont Regional Medical Center [id number] Leukocyte esterase Test strip Ql (U) Negative Normal [facility]; [facility] Work Phone: Comment on above: Test(s) 067722-TID-O ; 474901-KBE-X; 355206-Jvhmmzerdbkpv; 480023-Zktfhauudrt, Total; 160783-LVP-S (Total); 477256-Xbnpi LDL-P; 547092-FMN Size; 800134-HV-EB Scorewas developed and its performance characteristics determinedby [employer]. It has not been cleared or approved by the Foodand Drug Administration.PATIENT WAS FASTINGPERFORMED BY: Criers [employer]ium[address] [id number] BY: [employer] Khpczg8339 [address] MyDROBECaroMont Regional Medical Center [id number] Microscopic observation LM Nom (Urine sed) MICNIP Normal [facility]; [facility] Work Phone: Comment on above: Microscopic not sonia cated and not performed. Test(s) 636920-WFP-Z ; 892749-YLE-Y; 717743-Qgsyzgllxpnkn; 080277-Orgnbqjqtbd, Total; 033289-MFU-C (Total); 888610-Xneeu LDL-P; 265319-DQM Size; 468632-WD-OU Scorewas developed and its performance characteristics determinedby [employer]. It has not been cleared or approved by the Foodand Drug Administration.PATIENT WAS FASTINGPERFORMED BY: [employer] [address] [id number] BY: [facility] Vsjodg[address] MyDR[facility]aro[facility] [id number] Nitrite Ql (U) Negative Normal Comprehens keyon Internal Medicine; [facility] Work Phone: Comment on above: Test(s) 000299-OET-R ; 350929-MHK-A; 335214-Oosjcdhptwful; 927980-Bsnhvcqfejc, Total; 073498-TMZ-U (Total); 883717-Iehnl LDL-P; 557180-AIT Size; 322447-ET-WG Scorewas developed and its performance characteristics determinedby [employer]. It has not been cleared or approved by the Foodand Drug Administration.PATIENT WAS FASTINGPERFORMED BY: [employer]It [address] [id number] BY: CrowdHall6[address] MyDROBECaroMont [facility] Medical Center [id number] pH (U) 7.5 [pH] Normal 5.0-7.5 [facility]; [facility] Work Phone: Comment on above: Test(s) 482230-JPV-S ; 108793-TGP-G; 446625-Ailrsziixvrtc; 159963-Vubztxwvsur, Total; 936772-VUX-G (Total); 818444-Fichc LDL-P; 904303-DMH Size; 863679-EG-MV Scorewas developed and its performance characteristics determinedby [employer]. It has not been cleared or approved by the Foodand Drug Administration.PATIENT WAS FASTINGPERFORMED BY: [employer] [address] [id number] BY: Envisia TherapeuticsCooper University HospitalNfhyyd6797 [address] MyDROBECaroMont Regional Medical Center [id number] Protein Ql (U) Negative Normal Comprehens keyon Internal Medicine; [facility] Work Phone: Comment on above: Test(s) 398737-OGD-G ; 096866-FTX-B; 758866-Cheullxzrvuax; 514661-Fygjtylzuus, Total; 556723-AFS-C (Total); 308977-Qewji LDL-P; 301464-TQU Size; 120159-EO-EM Scorewas developed and its performance characteristics determinedby [employer]. It has not been cleared or approved by the Foodand Drug Administration.PATIENT WAS FASTINGPERFORMED BY: Exosect[address] [id number] BY: [employer] Krpuyx6790 [facility] [id number] Specific gravity (U) [Rel density] 1.017 1 Normal 1.005-1.03 0 [facility]; [facility] Work Phone: Comment on above: Test(s) 329754-KCG-T ; 103818-NJF-F; 528426-Eydvlabpcgaoi; 588510-Tzrypikkmlq, Total; 541022-GBI-G (Total); 141672-Sxqcz LDL-P; 107012-BCE Size; 837933-VA-UG Scorewas developed and its performance characteristics determinedby [employer]. It has not been cleared or approved by the Foodand Drug Administration.PATIENT WAS FASTINGPERFORMED BY: [employer] [address] [id number] BY: [employer] Gmrswz3411 [facility] [id number] Urobilinogen (U) [Mass/Vol] 0.2 mg/dL Normal 0.2-1.0 [facility]; [facility] Work Phone: Comment on above: Test(s) 537275-NWJ-A ; 237335-QUU-H; 872553-Emghtdhwjaztf; 038214-Hzrunfmueys, Total; 953002-QYH-K (Total); 582797-Joyxe LDL-P; 860581-AJV Size; 150838-TJ-XB Scorewas developed and its performance characteristics determinedby [employer]. It has not been cleared or approved by the Foodand Drug Administration.PATIENT WAS FASTINGPERFORMED BY: [employer] [address] StreetBurlington [place] [id number] BY: CHRISTOPHER [facility] Xvmvtc1967 [facility] [id number] XR Clavicle - left 2 Viewson 05-17-2021 IMPRESSION: Left mid clavicular ORIF without significant healing changes. 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 STATED THAT SHE HAS HAD NUMEROUS LEFT CLAVICLE FRACTURES. 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 There is minimal callus which is nonbridging. Sclerotic changes at the fracture line are similar to prior. No new fracture. No malalignment. 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 STATED THAT SHE HAS HAD NUMEROUS LEFT CLAVICLE FRACTURES. 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 There is minimal callus which is nonbridging. Sclerotic changes at the fracture line are similar to prior. No new fracture. No malalignment. IMPRESSION IMPRESSION: Left mid clavicular ORIF without significant healing changes. 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 Intact screw-plate is unchanged in position. Distal most screw appears incompletely within the clavicle. Glenohumeral and acromioclavicular joints appear maintained. 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 Intact screw-plate is unchanged in position. Distal most screw appears incompletely within the clavicle. Glenohumeral and acromioclavicular joints appear maintained. 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 Supervisor Chemical: [facility] Transcribe Date/Time: Apr 05 2021 3:24P Dictated by : HUNTER CLEANING MD This examination was interpreted and the report reviewed and electronically signed by: HUNTER CLEANING MD on Apr 05 2021 3:25PM EST [facility] Radiology Study observation (narrative) [facility] XR Clavicle - left 2 ViewsOr dered By: Ccf Provider on 04-05-2021 [facility] CBC (Auto) ([id number])Ordered By : New Home Sales Consultant on 04-02-2021 Erythrocyte distribution width (RBC) [Ratio] 12.9 % Normal 11.7-15.4 [facility]; [facility] Work Phone: Comment on above: PATIENT NOT FASTINGP ERFORMED BY: CrowdHall6370 [facility] [id number] Hematocrit (Bld) [Volume fraction] 36.9 % Normal 34.0-46.6 [facility]; [facility] Work Phone: Comment on above: PATIENT NOT FASTINGP ERFORMED BY: CrowdHall6370 [facility] [id number] Hemoglobin (Bld) [Mass/Vol] 12.0 g/dL Normal 11.1-15.9 [facility]; [facility] Work Phone: Comment on above: PATIENT NOT FASTINGP ERFORMED BY: CrowdHall6370 [facility] [id number] MCH (RBC) [Entitic mass] 31.3 pg Normal 26.6-33.0 [facility]; [facility] Work Phone: Comment on above: PATIENT NOT FASTINGP ERFORMED BY: CB [facility] Vwsxid9808 [address] RoadDublin [place] [id number] MCHC (RBC) [Mass/Vol] 32.5 g/dL Normal 31.5-35.7 [facility]; [facility] Work Phone: Comment on above: PATIENT NOT FASTINGP ERFORMED BY: CB [facility] Wnxgxx3317 [address] RoadDublin [place] [id number] MCV (RBC) [Entitic vol] 96 fL Normal 79-97 [facility] Internal Medicine; [facility] Work Phone: Comment on above: PATIENT NOT FASTINGP ERFORMED BY: CB [facility] Iupllf8354 [address] RoadDublin [place] [id number] Platelets (Bld) [#/Vol] 401 10*3/uL Normal 150-450 [facility] Internal Medicine; [facility] Work Phone: Comment on above: PATIENT NOT FASTINGP ERFORMED BY: CB [facility] Rukjal3761 [address] RoadDublin [place] [id number] RBC (Bld) [#/Vol] 3.83 10*6/uL Normal 3.77-5.28 [facility]; [facility] Work Phone: Comment on above: PATIENT NOT FASTINGP ERFORMED BY: CB [facility] Passdr3862 [address] RoadDublin [place] [id number] WBC (Bld) [#/Vol] 6.2 10*3/uL Normal 3.4-10.8 [facility] Internal Medicine; [facility] Work Phone: Comment on above: PATIENT NOT FASTINGP ERFORMED BY: CB [facility] Ikblwo0111 [address]Dublin [place] [id number] Metabolic Panel, Basic (8004 [id number])Ordered By: New Home Sales Consultant on 04-02-2021 Calcium [Mass/Vol] 10.2 mg/dL Normal 8.7-10.3 [facility] Internal Medicine; [facility] Work Phone: Comment on above: send labs to Dr. tato tavarez; PATIENT NOT FASTINGPERFORMED BY: [facility] Jjbdab6167 [address] MyDROBECaroMont Regional Medical Center [id number] Chloride [Moles/Vol] 101 mmol/L Normal 96-106 [facility] rehensive Internal Medicine; [facility] Work Phone: Comment on above: send labs to Dr. tato tavarez; PATIENT NOT FASTINGPERFORMED BY: CB [facility] Apovcx6502 [address] MyDROBECaroMont Regional Medical Center [id number] CO2 [Moles/Vol] 25 mmol/L Normal 20-29 [facility] Internal Medicine; [facility] Work Phone: Comment on above: send labs to Dr. tato tavarez; PATIENT NOT FASTINGPERFORMED BY: CB [facility] Npfquh8869 [address] MyDROBECaroMont Regional Medical Center [id number] Creatinine [Mass/Vol] 0.82 mg/dL Normal 0.57-1.00 [facility]; [facility] Work Phone: Comment on above: send labs to Dr. tato tavarez; PATIENT NOT FASTINGPERFORMED BY: [facility] Nnxjmj0948 [address] MyDROBECaroMont Regional Medical Center [id number] GFR/1.73 sq M.predicted among blacks CKD-EPI (S/P/Bld) [Vol rate/Area] 83 mL/min/1.73 Normal [facility]; [facility] Work Phone: Comment on above: [facility] currently reports eGFR in compliance with the current recommendations of the National Kidney Foundation. [facility] will update reporting as new guidelines are published from the NKF-ASN Task force. send labs to Dr. tato tavarez; PATIENT NOT FASTINGPERFORMED BY: [facility] Dcghip9978 [facility] [id number] GFR/1.73 sq M.predicted among non-blacks CKD-EPI (S/P/Bld) [Vol rate/Area] 72 mL/min/1.73 Normal [facility]; [facility] Work Phone: Comment on above: send labs to Dr. tato tavarez; PATIENT NOT FASTINGPERFORMED BY: CHRISTOPHER [facility] VaughnJgevtk7176 [address] RoadDublin [place] [id number] Glucose [Mass/Vol] 72 mg/dL Normal 65-99 [facility] Internal Medicine; [facility] Work Phone: Comment on above: send labs to Dr. tato tavarez; PATIENT NOT FASTINGPERFORMED BY: CB [facility] Gpsxdd6822 [address] RoadDublin [place] [id number] Potassium [Moles/Vol] 4.8 mmol/L Normal 3.5-5.2 [facility]; [facility] Work Phone: Comment on above: send labs to Dr. tato tavarez; PATIENT NOT FASTINGPERFORMED BY: CB [facility] Trwmxr5227 [address] RoadDublin [place] [id number] Sodium [Moles/Vol] 140 mmol/L Normal 134-144 [facility] Internal Medicine; [facility] Work Phone: Comment on above: send labs to Dr. tato tavarez; PATIENT NOT FASTINGPERFORMED BY: CB [facility] Xxkxta6266 [address]Dublin [place] [id number] Urea nitrogen [Mass/Vol] 22 mg/dL Normal 8-27 [facility] Internal Medicine; [facility] Work Phone: Comment on above: send labs to Dr. tato tavarez; PATIENT NOT FASTINGPERFORMED BY: CB [facility] Mtywtp5141 [address] MyDROBEDublin [place] [id number] Urea nitrogen/Creatinine [Mass ratio] 27 mg/mg Normal 12-28 [facility]; [facility] Work Phone: Comment on above: send labs to Dr. tato tavarez; PATIENT NOT FASTINGPERFORMED BY: CB [facility] Oyrqfq1692 [address]Dublin [place] [id number] 2018 Novel Coronavirus (COVI D-19), SHAE (68520)Ordered By: New Home Sales Consultant on 03-24-20212018 Novel Coronavirus (COVID-19), SHAE (56964) Not detected Normal [facility]; [facility] Work Phone: Comment on above: This nucleic acid am plification test was developed and its performancecharacteristics determined by [facility]. Nucleic acidamplification tests include RT-PCR and TMA. This test has not beenFDA cleared or approved. This test has been authorized by FDA underan Emergency Use Authorization (EUA). This test is only authorizedfor the duration of time the declaration that circumstances existjustifying the authorization of the emergency use of in vitrodiagnostic tests for detection of SARS-CoV-2 virus and/or diagnosisof COVID-19 infection under section 564(b)(1) of the Act, 21 U.S.C.360bbb-3(b) (1), unless the authorization is terminated or revokedsooner.When diagnostic testing is negative, the possibility of a falsenegative result should be considered in the context of a patient'srecent exposures and the presence of clinical signs and symptomsconsistent with COVID-19. An individual without symptoms of COVID-19and who is not shedding SARS-CoV-2 virus would expect to have anegative (not detected) result in this assay. PATIENT NOT FASTINGP ERFORMED BY: CHRISTOPHER [facility]6370 [facility] [id number] Urinalysis, Office ([id number])on 03-24-2021 Bilirubin Ql (U) Negative Normal Comprehe nsive Internal Medicine; [facility] Work Phone: Glucose Test strip (U) [Mass/Vol] Negative Normal [facility]; [facility] Work Phone: Hemoglobin Ql (U) Negative Normal Compreh ensive Internal Medicine; [facility] Work Phone: Ketones Ql (U) Moderate Normal Comprehens keyon Internal Medicine; [facility] Work Phone: Leukocyte esterase Test strip Ql (U) Negative Normal [facility]; [facility] Work Phone: Nitrite Ql (U) Negative Normal Comprehens keyon Internal Medicine; [facility] Work Phone: pH (U) 5 [pH] Abnormal [facility]; [facility] Work Phone: Protein Ql (U) + Abnormal Comprehens keyon Internal Medicine; [facility] Work Phone: Specific gravity (U) [Rel density] 1.030 1 Abnormal [facility]; [facility] Work Phone: Urobilinogen (24H U) [Mass/Time] Normal Normal [facility]; [facility] Work Phone: QuantiFERON-TB Gold Plus (QF T-Plus) (00554)Ordered By: New Home Sales Consultant on 05-11-2020 Gamma interferon background IA Qn (Bld) 0.01 {IU/mL} Normal [facility] Work Phone: Comment on above: PATIENT NOT FASTINGP ERFORMED BY: CHRISTOPHER Vaughn6370 [facility] [id number] M. tuberculosis stim IFN-g by CD4+ CD8+ T-cells corrected for background Qn (Bld) 0.02 {IU/mL} Normal Comprehensiv e Internal Medicine Work Phone: Comment on above: PATIENT NOT FASTINGP ERFORMED BY: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 present extending through the medial aspect left superior and inferior pubic rami. The left hip joint is preserved. There is diffuse demineralization. [facility] Fractures extending through the superior and inferior left pubic ramus. [employer] Workstation ID: [id number] [facility] XR PELVIS INLET/OUTLET 3+ EWSon 11-19-2018 XR PELVIS INLET/OUTLET 3+ VIEWS EXAMINATION: XR PELVIS INLET/OUTLET 3+ VIEWS HISTORY: ORDERING SYSTEM PROVIDED HISTORY: eval of left rami fractures, TECHNOLOGIST PROVIDED HISTORY: Reason for exam: eval of left rami fractures Injury/Trauma Cancer History: Surgery, RadiationHistory: Encounter Type: Initial Mechanism of injury: ORDERING SYSTEM PROVIDED DIAGNOSIS CODES: S32.592A Closed fracture of ramus of left pubis, initial encounter ([facility]) COMPARISON: Same day CT pelvis IMPRESSION: FINDINGS/ Nondisplaced fractures of bilateral obturator rings, with fracture of the root of the left superior pubic ramus extending into the anterior acetabulum with mild comminution. Additional fractures, including fracture of the left sacrum, are better seen on same day CT. Workstation ID: [id number] Dictated by: LIUS MOORE on MonNov 19, 2018 8:46:55 PM EST Transcribed by: LUIS MOORE on MonNov 19, 2018 8:46:55 PM EST Finalized by: LUIS MOORE on MonNov 19, 2018 8:46:55 PM EST Normal [facility] Comment on above: Order Comment: Reaso n for exam?:eval of left rami fractures Injury/Trauma or Illness?:Injury/Trauma How long have you had these symptoms (acute/chronic)?:Acute History of cancer?: Surgeries, chemotherapy, or radiation?: Type of Exam?:Initial Mechanism of injury?: XR Pelvis Inlet/Outlet 3+ Vi ewson 11-19-2018 FINDINGS/ Nondisplac ed fractures of bilateral obturator rings, with fracture of the root of the left superior pubic ramus extending into the anterior acetabulum with mild comminution. Additional fractures, including fracture of the left sacrum, are better seen on same day CT. Workstation ID: [id number] [facility] Interface, Rad In Fredy tran Speechq - 11/19/2018 8:49 PM EST EXAMINATION: XR PELVIS INLET/OUTLET 3+ VIEWS HISTORY: ORDERING SYSTEM PROVIDED HISTORY: eval of left rami fractures, TECHNOLOGIST PROVIDED HISTORY: Reason for exam: eval of left rami fractures Injury/Trauma Cancer History: Surgery, RadiationHistory: Encounter Type: Initial Mechanism of injury: ORDERING SYSTEM PROVIDED DIAGNOSIS CODES: S32.592A Closed fracture of ramus of left pubis, initial encounter ([facility]) COMPARISON: Same day CT pelvis IMPRESSION: FINDINGS/ Nondisplaced fractures of bilateral obturator rings, with fracture of the root of the left superior pubic ramus extending into the anterior acetabulum with mild comminution. Additional fractures, including fracture of the left sacrum, are better seen on same day CT. Workstation ID: [id number] [facility] EXAMINATION: XR PELV IS INLET/OUTLET 3+ VIEWS HISTORY: ORDERING SYSTEM PROVIDED HISTORY: eval of left rami fractures, TECHNOLOGIST PROVIDED HISTORY: Reason for exam: eval of left rami fractures Injury/Trauma Cancer History: Surgery, RadiationHistory: Encounter Type: Initial Mechanism of injury: ORDERING SYSTEM PROVIDED DIAGNOSIS CODES: S32.592A Closed fracture of ramus of left pubis, initial encounter ([facility]) COMPARISON: Same day CT pelvis [facility] Large Joint Arthro/Inj: L aguiar bacromial bursa [facility] Vital Signs Date Time Vital Sign Value Performing Clinician Facility 05-28-2025 [id number] Body height 154.[address] Bessie De Luna MD Work Phone: [facility] 05-28-2025 10:[id number] Body mass index (BMI) [Ratio] 21.2 kg/m2 Dr. Bessie De Luna MD Work Phone: [facility] 05-28-2025 [id number] Body weight 50.[address] Bessie De Luna MD Work Phone: [facility] 05-06-2025 13:02-0400 Diastolic blood pressure 88 mm[Hg] Dr. Bessie De Luna MD Work Phone: [facility] 05-06-2025 13:02-0400 Heart rate 101 /min Dr. Bessie De Luna MD Work Phone: [facility] 05-06-2025 13:02-0400 Systolic blood pressure 123 mm[Hg] Dr. Bessie De Luna MD Work Phone: [facility] 05-06-2025 08:47-0400 Body height 154.[address] Bessie De Luna MD Work Phone: [facility] 05-06-2025 08:47-0400 Body mass index (BMI) [Ratio] 20.9 kg/m2 Dr. Bessie De Luna MD Work Phone: [facility] 05-06-2025 08:47-0400 Body temperature 98.4 [degF] Dr. Bessie De Luna MD Work Phone: [facility] 05-06-2025 08:47-0400 Body weight 50.[address] Bessie De Luna MD Work Phone: [facility] 05-06-2025 08:47-0400 Diastolic blood pressure 83 mm[Hg] Dr. Bessie De Luna MD Work Phone: [facility] 05-06-2025 08:47-0400 Heart rate 91 /min Dr. Bessie De Luna MD Work Phone: [facility] 05-06-2025 08:47-0400 Respiratory rate 16 /min Dr. Bessie De Luna MD Work Phone: [facility] 05-06-2025 08:47-0400 SaO2% (BldA) [Mass fraction] 99 % Dr. Bessie De Luna MD Work Phone: [facility] 05-06-2025 08:47-0400 Systolic blood pressure 137 mm[Hg] Dr. Bessie De Luna MD Work Phone: [facility] 04-02-2025 14:54-0400 Body height 155 cm Fili Wen MD Work Phone: [facility] 04-02-2025 14:54-0400 Body mass index (BMI) [Ratio] 21.07 kg/m2 Fili Wen MD Work Phone: [facility] 04-02-2025 14:54-0400 Body weight 50.62 kg Fili Wen MD Work Phone: [facility] 04-02-2025 14:54-0400 Diastolic blood pressure 80 mm[Hg] Fili Wen MD Work Phone: [facility] 04-02-2025 14:54-0400 Heart rate 76 /min Fili Wen MD Work Phone: [facility] 04-02-2025 14:54-0400 Respiratory rate 16 /min Fili Wen MD Work Phone: [facility] 04-02-2025 14:54-0400 SaO2% (BldA) [Mass fraction] 99 % Fili Wen MD Work Phone: [facility] 04-02-2025 14:54-0400 Systolic blood pressure 112 mm[Hg] Fili Wen MD Work Phone: [facility] 07-17-2024 11:39-0400 Body height 156 cm Fili Wen MD Work Phone: [facility] 07-17-2024 11:39-0400 Body mass index (BMI) [Ratio] 21.14 kg/m2 Fili Wen MD Work Phone: [facility] 07-17-2024 11:39-0400 Body weight 51.44 kg Fili Wen MD Work Phone: [facility] 07-17-2024 11:39-0400 Diastolic blood pressure 72 mm[Hg] Fili Wen MD Work Phone: [facility] 07-17-2024 11:39-0400 Heart rate 64 /min Fili Wen MD Work Phone: [facility] 07-17-2024 11:39-0400 Respiratory rate 16 /min Fili Wen MD Work Phone: [facility] 07-17-2024 11:39-0400 SaO2% (BldA) [Mass fraction] 96 % Fili Wen MD Work Phone: [facility] 07-17-2024 11:39-0400 Systolic blood pressure 108 mm[Hg] Fili Wen MD Work Phone: [facility] 11-27-2023 11:28-0500 Body height 155.6 cm Pacc 1 Work Phone: [facility] 11-27-2023 11:28-0500 Body temperature 98.49 [degF] Pacc 1 Work Phone: [facility] 11-27-2023 11:28-0500 Body weight 49.44 kg Pacc 1 Work Phone: [facility] 11-27-2023 11:28-0500 Diastolic blood pressure 84 mm[Hg] Pacc 1 Work Phone: [facility] 11-27-2023 11:28-0500 Heart rate 75 /min Pacc 1 Work Phone: [facility] 11-27-2023 11:28-0500 Respiratory rate 14 /min Pacc 1 Work Phone: [facility] 11-27-2023 11:28-0500 SaO2% (BldA) [Mass fraction] 97 % Pacc 1 Work Phone: [facility] 11-27-2023 11:28-0500 Systolic blood pressure 118 mm[Hg] Pacc 1 Work Phone: [facility] 08-08-2023 14:04-0400 Body height 156.21 cm Joan Susan DENNIS [facility] Work Phone: 08-08-2023 14:04-0400 Body mass index (BMI) [Ratio] 20.54 kg/m2 Joan Davis LPN [facility] Work Phone: 08-08-2023 14:04-0400 Body surface area Derived from formula 1.48 m2 Joan Davis LPN [facility] Work Phone: 08-08-2023 14:04-0400 Body temperature 98.1 [degF] Joan Susan LPN [facility]; [facility] Work Phone: 08-08-2023 14:04-0400 Body weight 50.12 kg Joan Davis LPN [facility]; [facility] Work Phone: 08-08-2023 14:04-0400 Diastolic blood pressure 80 mm[Hg] Joan Davis LPN [facility]; [facility] Work Phone: Comment on above: Patient Position: Si tting; Cuff Location: Left Arm; Cuff Size: Standard 08-08-2023 14:04-0400 Heart rate 72 /min Joan Davis LPN [facility] Work Phone: Comment on above: Pattern: Regular 08-08-2023 14:04-0400 Respiratory rate 16 /min Joan Davis LPN [facility]; [facility] Work Phone: Comment on above: Pattern: Unlabored 08-08-2023 14:04-0400 SaO2% (BldA) [Mass fraction] 98 % Joan Davis LPN [facility]; [facility] Work Phone: Comment on above: Room air 08-08-2023 14:04-0400 Systolic blood pressure 118 mm[Hg] Joan Davis LPN [facility]; [facility] Work Phone: Comment on above: Patient Position: Si tting; Cuff Location: Left Arm; Cuff Size: Standard 07-10-2023 10:190400 Body height 156.21 cm Joan Davis LPN [facility]; [facility] Work Phone: 07-10-2023 10:19-0400 Body mass index (BMI) [Ratio] 20.54 kg/m2 Joan Davis LPN [facility]; [facility] Work Phone: 07-10-2023 10:040 Body surface area Derived from formula 1.48 m2 Joan Davis LPN [facility]; [facility] Work Phone: 07-10-2023 10:040 Body temperature 98.3 [degF] Joan Davis LPN [facility]; [facility] Work Phone: 07-10-2023 10:040 Body weight 50.12 kg Joan Davis LPN [facility]; [facility] Work Phone: 07-10-2023 10:0400 Diastolic blood pressure 78 mm[Hg] Joan Davis LPN [facility]; [facility] Work Phone: Comment on above: Patient Position: Si tting; Cuff Location: Left Arm; Cuff Size: Standard 07-10-2023 10:190400 Heart rate 70 /min Joan Davis LPN [facility]; [facility] Work Phone: Comment on above: Pattern: Regular 07-10-2023 10:19-0400 Respiratory rate 16 /min Joan Davis LPN [facility]; [facility] Work Phone: Comment on above: Pattern: Unlabored 07-10-2023 10:19-0400 SaO2% (BldA) [Mass fraction] 98 % Joan Davis LPN [facility]; [facility] Work Phone: Comment on above: Room air 07-10-2023 10:19-0400 Systolic blood pressure 110 mm[Hg] Joan Davis LPN [facility]; [facility] Work Phone: Comment on above: Patient Position: Si tting; Cuff Location: Left Arm; Cuff Size: Standard 04-24-2023 10:33-0400 Body temperature 98 [degF] Bessie De Luna MD Work Phone: [facility]; [facility] Work Phone: 04-24-2023 10:33-0400 Diastolic blood pressure 70 mm[Hg] Bessie De Luna MD Work Phone: [facility]; [facility] Work Phone: Comment on above: Patient Position: Si tting; Cuff Location: Left Arm; Cuff Size: Standard 04-24-2023 10:33-0400 Heart rate 72 /min Bessie De Luna MD Work Phone: [facility]; [facility] Work Phone: Comment on above: Pattern: Regular 04-24-2023 10:33-0400 Respiratory rate 16 /min Bessie De Luna MD Work Phone: [facility]; [facility] Work Phone: Comment on above: Pattern: Unlabored 04-24-2023 10:33-0400 SaO2% (BldA) [Mass fraction] 97 % Bessie De Luna MD Work Phone: [facility]; [facility] Work Phone: Comment on above: Room air 04-24-2023 10:33-0400 Systolic blood pressure 124 mm[Hg] Bessie De Luna MD Work Phone: [facility]; [facility] Work Phone: Comment on above: Patient Position: Si tting; Cuff Location: Left Arm; Cuff Size: Standard 02-10-2023 09:07-0400 Body height 156.21 cm Janine Serrano CMA [facility]; [facility] Work Phone: 02-10-2023 09:07-0400 Body mass index (BMI) [Ratio] 20.7 kg/m2 Janine Serrano [facility] Work Phone: 02-10-2023 09:07-0400 Body surface area Derived from formula 1.48 m2 Janine Serrano [facility] Work Phone: 02-10-2023 09:07-0400 Body temperature 96.8 [degF] Janine Serrano [facility] Work Phone: Comment on above: Method: Thermal Scan 02-10-2023 09:07-0400 Body weight 50.52 kg Janine Serrano [facility] Work Phone: 02-10-2023 09:07-0400 Diastolic blood pressure 68 mm[Hg] Janine Serrano [facility] Work Phone: Comment on above: Patient Position: Si tting; Cuff Location: Left Arm; Cuff Size: Standard 02-10-2023 09:07-0400 Heart rate 62 /min Janine Serrano [facility] Work Phone: Comment on above: Pattern: Regular 02-10-2023 09:07-0400 Respiratory rate 16 /min Janine Serrano [facility] Work Phone: Comment on above: Pattern: Unlabored 02-10-2023 09:07-0400 Systolic blood pressure 110 mm[Hg] Janine Serrano [facility] Work Phone: Comment on above: Patient Position: Si tting; Cuff Location: Left Arm; Cuff Size: Standard 01-11-2023 10:23-0400 Body height 156.2 cm Pac 1 Work Phone: [facility] 01-11-2023 10:23-0400 Body temperature 98.4 [degF] Pac 1 Work Phone: [facility] 01-11-2023 10:23-0400 Body weight 49.44 kg Pac 1 Work Phone: [facility] 01-11-2023 10:23-0400 Diastolic blood pressure 72 mm[Hg] Pacc 1 Work Phone: [facility] 01-11-2023 10:23-0400 Heart rate 76 /min Pacc 1 Work Phone: [facility] 01-11-2023 10:23-0400 Respiratory rate 16 /min Pacc 1 Work Phone: [facility] 01-11-2023 10:23-0400 SaO2% (BldA) [Mass fraction] 99 % Pacc 1 Work Phone: [facility] 01-11-2023 10:23-0400 Systolic blood pressure 120 mm[Hg] Pacc 1 Work Phone: [facility] 01-10-2023 12:52-0400 Body temperature 98.1 [degF] Joan Davis LPN [facility]; [facility] Work Phone: 01-10-2023 12:52-0400 Body weight 50.52 kg Joan Davis LPN [facility]; [facility] Work Phone: 01-10-2023 12:52-0400 Diastolic blood pressure 80 mm[Hg] Joan Davis LPN [facility]; [facility] Work Phone: Comment on above: Patient Position: Si tting; Cuff Location: Left Arm; Cuff Size: Standard 01-10-2023 12:52-0400 Heart rate 87 /min Joan Davis LPN [facility]; [facility] Work Phone: Comment on above: Pattern: Regular 01-10-2023 12:52-0400 Respiratory rate 16 /min Joan Davis LPN [facility]; [facility] Work Phone: Comment on above: Pattern: Unlabored 01-10-2023 12:52-0400 SaO2% (BldA) [Mass fraction] 98 % Jona Davis LPN [facility]; [facility] Work Phone: Comment on above: Room air 01-10-2023 12:52-0400 Systolic blood pressure 110 mm[Hg] Joan Davis DENNIS [facility]; [facility] Work Phone: Comment on above: Patient Position: Si tting; Cuff Location: Left Arm; Cuff Size: Standard 09-28-2022 17:42-0500 Body temperature 98.1 [degF] Joan Davis DENNIS [facility]; [facility] Work Phone: 09-28-2022 17:42-0500 Body weight 48.71 kg Joan Davis DENNIS [facility]; [facility] Work Phone: 09-28-2022 17:42-0500 Diastolic blood pressure 84 mm[Hg] Joan Davis DENNIS [facility]; [facility] Work Phone: Comment on above: Patient Position: Si tting; Cuff Location: Left Arm; Cuff Size: Standard 09-28-2022 17:42-0500 Heart rate 65 /min Joan Davis DENNIS [facility]; [facility] Work Phone: Comment on above: Pattern: Regular 09-28-2022 17:42-0500 Respiratory rate 16 /min Joan Davis DENNIS [facility]; [facility] Work Phone: Comment on above: Pattern: Unlabored 09-28-2022 17:42-0500 SaO2% (BldA) [Mass fraction] 99 % Joan Davis DENNIS [facility]; [facility] Work Phone: Comment on above: Room air 09-28-2022 17:42-0500 Systolic blood pressure 118 mm[Hg] Joan Davis DENNIS [facility]; [facility] Work Phone: Comment on above: Patient Position: Si tting; Cuff Location: Left Arm; Cuff Size: Standard 07-05-2022 09:24-0400 Body temperature 98.5 [degF] Denise Levine MA [facility]; [facility] Work Phone: 07-05-2022 09:24-0400 Body weight 48.65 kg Denise Levine MA [facility]; [facility] Work Phone: 07-05-2022 09:24-0400 Diastolic blood pressure 70 mm[Hg] Denise Levine MA [facility]; [facility] Work Phone: Comment on above: Patient Position: Si tting; Cuff Location: Left Arm; Cuff Size: Standard 07-05-2022 09:24-0400 Heart rate 78 /min Denise Levine MA [facility]; [facility] Work Phone: Comment on above: Pattern: Regular 07-05-2022 09:24-0400 Respiratory rate 17 /min Denise Levine MA [facility]; [facility] Work Phone: Comment on above: Pattern: Unlabored 07-05-2022 09:24-0400 SaO2% (BldA) [Mass fraction] 96 % Denise Levine MA [facility]; [facility] Work Phone: Comment on above: Room air 07-05-2022 09:24-0400 Systolic blood pressure 110 mm[Hg] Denise Levine MA [facility]; [facility] Work Phone: Comment on above: Patient Position: Si tting; Cuff Location: Left Arm; Cuff Size: Standard 06-15-2022 15:07-0400 Body height 155.7 cm Fili Wen MD Work Phone: [facility] 06-15-2022 15:07-0400 Body mass index (BMI) [Ratio] 20.66 kg/m2 Fili Wen MD Work Phone: [facility] 06-15-2022 15:07-0400 Body weight 50.08 kg Fili Wen MD Work Phone: [facility] 06-15-2022 15:07-0400 Diastolic blood pressure 62 mm[Hg] Fili Wen MD Work Phone: [facility] 06-15-2022 15:07-0400 Heart rate 55 /min Fili Wen MD Work Phone: [facility] 06-15-2022 15:07-0400 Respiratory rate 16 /min Fili Wen MD Work Phone: [facility] 06-15-2022 15:07-0400 SaO2% (BldA) [Mass fraction] 96 % Fili Wen MD Work Phone: [facility] 06-15-2022 15:07-0400 Systolic blood pressure 112 mm[Hg] Fili Wen MD Work Phone: [facility] 05-20-2022 12:50-0400 Diastolic blood pressure 83 mm[Hg] Sancho Diaz MD Work Phone: [facility] 05-20-2022 12:50-0400 Heart rate 85 /min Sancho Diaz MD Work Phone: [facility] 05-20-2022 12:50-0400 Respiratory rate 18 /min Sancho Diaz MD Work Phone: [facility] 05-20-2022 12:50-0400 SaO2% (BldA) [Mass fraction] 99 % Sancho Diaz MD Work Phone: [facility] 05-20-2022 12:50-0400 Systolic blood pressure 143 mm[Hg] Sancho Diaz MD Work Phone: [facility] 05-20-2022 10:04-0400 Body height 156.2 cm Sancho Diaz MD Work Phone: [facility] 05-20-2022 10:04-0400 Body temperature 97.5 [degF] Sancho Diaz MD Work Phone: [facility] 05-20-2022 10:04-0400 Body weight 47.63 kg Sancho Diaz MD Work Phone: [facility] 02-21-2022 10:45-0400 Body height 156.21 cm Joan Davis [employer] [facility] Work Phone: 02-21-2022 10:45-0400 Body mass index (BMI) [Ratio] 20.17 kg/m2 Joan Susan COLLINS [facility]; [facility] Work Phone: 02-21-2022 10:45-0400 Body surface area Derived from formula 1.47 m2 Joan Davis LPN [facility]; [facility] Work Phone: 02-21-2022 10:45-0400 Body temperature 97.9 [degF] Joan Susan COLLINS [facility]; [facility] Work Phone: 02-21-2022 10:45-0400 Body weight 49.22 kg Joan Davis LPN [facility]; [facility] Work Phone: 02-21-2022 10:45-0400 Diastolic blood pressure 70 mm[Hg] Joan Davis LPN [facility]; [facility] Work Phone: Comment on above: Patient Position: Si tting; Cuff Location: Left Arm; Cuff Size: Standard 02-21-2022 10:45-0400 Heart rate 70 /min Joan Davis LPN [facility]; [facility] Work Phone: Comment on above: Pattern: Regular 02-21-2022 10:45-0400 Respiratory rate 16 /min Joan Davis LPN [facility]; [facility] Work Phone: Comment on above: Pattern: Unlabored 02-21-2022 10:45-0400 SaO2% (BldA) [Mass fraction] 98 % Joancipriano Arciniegaterrence COLLINS [facility]; [facility] Work Phone: Comment on above: Room air 02-21-2022 10:45-0400 Systolic blood pressure 124 mm[Hg] Joan Davis LPN [facility]; [facility] Work Phone: Comment on above: Patient Position: Si tting; Cuff Location: Left Arm; Cuff Size: Standard 01-14-2022 09:11-0400 Body height 156.21 cm JONNY Harrison LPN [facility]; [facility] Work Phone: 01-14-2022 [id number] Body mass index (BMI) [Ratio] 20.26 kg/m2 JONNY Harrison DENNIS [facility]; [facility] Work Phone: 01-14-2022 [id number] Body surface area Derived from formula 1.47 m2 JONNY Harrison DENNIS [facility]; [facility] Work Phone: 01-14-2022 09:11040 Body temperature 97.9 [degF] JONNY Harrison LPN [facility]; [facility] Work Phone: Comment on above: Method: Temporal 01-14-2022 09:040 Body weight 49.44 kg JONNY Harrison DENNIS [facility]; [facility] Work Phone: 01-14-2022 [id number] Diastolic blood pressure 74 mm[Hg] JONNY Harrison DENNIS [facility]; [facility] Work Phone: Comment on above: Patient Position: Si tting; Cuff Location: Left Arm; Cuff Size: Standard 01-14-2022 09:11-0400 Heart rate 70 /min JONNY Harrison DENNIS [facility]; [facility] Work Phone: Comment on above: Pattern: Regular 01-14-2022 09:11-0400 Respiratory rate 20 /min JONNY Harrison DENNIS [facility]; [facility] Work Phone: Comment on above: Pattern: Unlabored 01-14-2022 09:11-0400 SaO2% (BldA) [Mass fraction] 98 % JONNY Harrison [employer] [facility]; [facility] Work Phone: Comment on above: Room air 01-14-2022 09:11-0400 Systolic blood pressure 118 mm[Hg] JONNY Harrison DENNIS [facility]; [facility] Work Phone: Comment on above: Patient Position: Si tting; Cuff Location: Left Arm; Cuff Size: Standard 01-10-2022 14:13-0400 Body height 156.21 cm JONNY Harrison LPN [facility]; [facility] Work Phone: 01-10-2022 14:13-0400 Body mass index (BMI) [Ratio] 20.26 kg/m2 JONNY Harrison LPN [facility]; [facility] Work Phone: 01-10-2022 14:13-0400 Body surface area Derived from formula 1.47 m2 JONNY Harrison DENNIS [facility]; [facility] Work Phone: 01-10-2022 14:13-0400 Body temperature 97.9 [degF] JONNY Harrison LPN [facility]; [facility] Work Phone: Comment on above: Method: Temporal 01-10-2022 14:0400 Body weight 49.44 kg JONNY Harrison LPN [facility]; [facility] Work Phone: 01-10-2022 14:13-0400 Diastolic blood pressure 78 mm[Hg] JONNY Harrison DENNIS [facility]; [facility] Work Phone: Comment on above: Patient Position: Si tting; Cuff Location: Left Arm; Cuff Size: Standard 01-10-2022 14:13-0400 Heart rate 78 /min JONNY Harrison LPN [facility]; [facility] Work Phone: Comment on above: Pattern: Regular 01-10-2022 14:13-0400 Respiratory rate 20 /min JONNY Harrison DENNIS [facility]; [facility] Work Phone: Comment on above: Pattern: Unlabored 01-10-2022 14:13-0400 SaO2% (BldA) [Mass fraction] 98 % JONNY Harrison LPN [facility]; [facility] Work Phone: Comment on above: Room air 01-10-2022 14:13-0400 Systolic blood pressure 116 mm[Hg] JONNY Harrison LPN [facility]; [facility] Work Phone: Comment on above: Patient Position: Si tting; Cuff Location: Left Arm; Cuff Size: Standard 12-29-2021 15:03-0400 Diastolic blood pressure 75 mm[Hg] Dr. Bessie De Luna Work Phone: [facility] Work Phone: 12-29-2021 15:03-0400 Systolic blood pressure 117 mm[Hg] Dr. Bessie De Luna Work Phone: [facility] Work Phone: 12-24-2021 07:20-0500 Body temperature 98.3 [degF] Dr. Bessie De Luna Work Phone: [facility] Work Phone: 12-24-2021 07:20-0500 Diastolic blood pressure 71 mm[Hg] Dr. Bessie De Luna Work Phone: [facility] Work Phone: 12-24-2021 07:20-0500 Heart rate 60 /min Dr. Bessie De Luna Work Phone: [facility] Work Phone: 12-24-2021 07:20-0500 Respiratory rate 16 /min Dr. Bessie De Luna Work Phone: [facility] Work Phone: 12-24-2021 07:20-0500 SaO2% (BldA) [Mass fraction] 99 % Dr. Bessie De Luna Work Phone: [facility] Work Phone: 12-24-2021 07:20-0500 Systolic blood pressure 140 mm[Hg] Dr. Bessie De Luna Work Phone: [facility] Work Phone: 12-24-2021 04:54-0500 Body height 156.[address] Bessie De Luna Work Phone: [facility] Work Phone: 12-24-2021 04:54-0500 Body mass index (BMI) [Ratio] 20 kg/m2 Dr. Bessie De Luna Work Phone: [facility] Work Phone: 12-24-2021 04:54-0500 Body weight [address] Bessie De Luna Work Phone: [facility] Work Phone: 12-20-2021 13:52-0500 Body temperature 97 [degF] Dr. Bessie De Luna Work Phone: [facility] Work Phone: 12-20-2021 13:52-0500 Diastolic blood pressure 73 mm[Hg] Dr. Bessie De Luna Work Phone: [facility] Work Phone: 12-20-2021 13:52-0500 Heart rate 68 /min Dr. eBssie De Luna Work Phone: [facility] Work Phone: 12-20-2021 13:52-0500 Respiratory rate 16 /min Dr. Bessie De Luna Work Phone: [facility] Work Phone: 12-20-2021 13:52-0500 SaO2% (BldA) [Mass fraction] 99 % Dr. Bessie De Luna Work Phone: [facility] Work Phone: 12-20-2021 13:52-0500 Systolic blood pressure 130 mm[Hg] Dr. Bessie De Luna Work Phone: [facility] Work Phone: 12-20-2021 05:00-0500 Body weight 50.[address] Bessie De Luna Work Phone: [facility] Work Phone: 12-19-2021 16:31-0500 Body mass index (BMI) [Ratio] 20.3 kg/m2 Dr. Bessie De Luna Work Phone: [facility] Work Phone: 11-11-2021 09:21-0500 Body height 156.21 cm JONNY Harrison DENNIS [facility]; [facility] Work Phone: 11-11-2021 09:21-0500 Body mass index (BMI) [Ratio] 20.26 kg/m2 JONNY Harrison DENNIS [facility]; [facility] Work Phone: 11-11-2021 09:21-0500 Body surface area Derived from formula 1.47 m2 JONNY Harrison DENNIS [facility]; [facility] Work Phone: 11-11-2021 09:21-0500 Body temperature 97.6 [degF] JONNY Harrison DENNIS [facility]; [facility] Work Phone: Comment on above: Method: Temporal 11-11-2021 09:21-0500 Body weight 49.44 kg JONNY Harrison DENNIS [facility]; [facility] Work Phone: 11-11-2021 09:21-0500 Diastolic blood pressure 74 mm[Hg] JONNY Harrison DENNIS [facility]; [facility] Work Phone: Comment on above: Patient Position: Si tting; Cuff Location: Left Arm; Cuff Size: Standard 11-11-2021 09:21-0500 Heart rate 74 /min JONNY Harrison DENNIS [facility]; [facility] Work Phone: Comment on above: Pattern: Regular 11-11-2021 09:21-0500 Respiratory rate 20 /min JONNY Harrison DENNIS [facility]; [facility] Work Phone: Comment on above: Pattern: Unlabored 11-11-2021 09:21-0500 SaO2% (BldA) [Mass fraction] 98 % JONNY Harrison DENNIS [facility]; [facility] Work Phone: Comment on above: Room air 11-11-2021 09:21-0500 Systolic blood pressure 114 mm[Hg] JONNY Harrison DENNIS [facility]; [facility] Work Phone: Comment on above: Patient Position: Si tting; Cuff Location: Left Arm; Cuff Size: Standard 08-27-2021 13:01-0500 Body height 156.21 cm JONNY Harrison LPN [facility]; [facility] Work Phone: 08-27-2021 13:01-0500 Body mass index (BMI) [Ratio] 20.26 kg/m2 JONNY Harrison LPN [facility]; [facility] Work Phone: 08-27-2021 13:01-0500 Body surface area Derived from formula 1.47 m2 JONNY Harrison [employer] [facility]; [facility] Work Phone: 08-27-2021 13:01-0500 Body temperature 97.9 [degF] JONNY Harrison LPN [facility]; [facility] Work Phone: Comment on above: Method: Temporal 08-27-2021 13:01-0500 Body weight 49.44 kg JONNY Harrison DENNIS [facility]; [facility] Work Phone: 08-27-2021 13:01-0500 Diastolic blood pressure 74 mm[Hg] JONNY Harrison [employer] [facility]; [facility] Work Phone: Comment on above: Patient Position: Si tting; Cuff Location: Left Arm; Cuff Size: Standard 08-27-2021 13:01-0500 Heart rate 76 /min JONNY Harrison LPN [facility]; [facility] Work Phone: Comment on above: Pattern: Regular 08-27-2021 13:01-0500 Respiratory rate 18 /min JONNY Harrison LPN [facility]; [facility] Work Phone: Comment on above: Pattern: Unlabored 08-27-2021 13:01-0500 SaO2% (BldA) [Mass fraction] 98 % JONNY Harrison LPN [facility]; [facility] Work Phone: Comment on above: Room air 08-27-2021 13:01-0500 Systolic blood pressure 118 mm[Hg] JONNY Harrison LPN [facility]; [facility] Work Phone: Comment on above: Patient Position: Si tting; Cuff Location: Left Arm; Cuff Size: Standard 07-13-2021 07:09-0400 Body height 156.21 cm Janine Serrano [facility] Work Phone: 07-13-2021 07:090400 Body mass index (BMI) [Ratio] 20.26 kg/m2 Janine Serrano [facility]; [facility] Work Phone: 07-13-2021 [id number] Body surface area Derived from formula 1.47 m2 Janine Serrano [facility]; [facility] Work Phone: 07-13-2021 [id number] Body temperature 97 [degF] Janine Serrano [facility]; [facility] Work Phone: Comment on above: Method: Thermal Scan 07-13-2021 [id number] Body weight 49.44 kg Janine Serrano [facility]; [facility] Work Phone: 07-13-2021 [id number] Diastolic blood pressure 62 mm[Hg] Janine Serrano [facility]; [facility] Work Phone: Comment on above: Patient Position: Si tting; Cuff Location: Left Arm; Cuff Size: Standard 07-13-2021 07:09-0400 Heart rate 68 /min Janine Serrano [facility]; [facility] Work Phone: Comment on above: Pattern: Regular 07-13-2021 07:09-0400 Respiratory rate 16 /min Janine Serrano [facility]; [facility] Work Phone: Comment on above: Pattern: Unlabored 07-13-2021 07:09-0400 SaO2% (BldA) [Mass fraction] 97 % Janine Serrano [facility]; [facility] Work Phone: Comment on above: Room air 07-13-2021 07:09-0400 Systolic blood pressure 108 mm[Hg] Janine Serrano [facility]; [facility] Work Phone: Comment on above: Patient Position: Si tting; Cuff Location: Left Arm; Cuff Size: Standard 07-09-2021 08:56-0400 Body height 156.21 cm Maxine Slarb [employer] SAL[employer]IST[employer] [facility]; [facility] Work Phone: 07-09-2021 08:56-0400 Body mass index (BMI) [Ratio] 20.1 kg/m2 Maxine Slarb [employer] SAL[employer] ASSIST[employer] [facility]; [facility] Work Phone: 07-09-2021 08:56-0400 Body surface area Derived from formula 1.46 m2 Maxine Slarb [employer] SAL[employer] ASSIST[employer] [facility]; [facility] Work Phone: 07-09-2021 08:56-0400 Body temperature 97.1 [degF] Maxine Slarb [employer] SAL[employer] ASSIST[employer] [facility]; [facility] Work Phone: 07-09-2021 08:56-0400 Body weight 49.05 kg Maxine Slarb [employer] SAL[employer] ASSIST[employer] [facility]; [facility] Work Phone: 07-09-2021 08:56-0400 Diastolic blood pressure 78 mm[Hg] Maxine Slarb [employer] SAL[employer] ASSIST[employer] [facility]; [facility] Work Phone: Comment on above: Patient Position: Si tting; Cuff Location: Left Arm; Cuff Size: Standard 07-09-2021 08:56-0400 Heart rate 70 /min Maxine Slarb [employer] SAL[employer] ASSIST[employer] [facility]; [facility] Work Phone: Comment on above: Pattern: Regular 07-09-2021 08:56-0400 Respiratory rate 17 /min Maxine Slarb [employer] SAL[employer] ASSIST[employer] [facility]; [facility] Work Phone: Comment on above: Pattern: Unlabored 07-09-2021 08:56-0400 SaO2% (BldA) [Mass fraction] 95 % Maxine Slarb [employer] SAL[employer] ASSIST[employer] [facility]; [facility] Work Phone: Comment on above: Room air 07-09-2021 08:56-0400 Systolic blood pressure 122 mm[Hg] Maxine Slarb [employer] SAL[employer] ASSIST[employer] [facility]; [facility] Work Phone: Comment on above: Patient Position: Si tting; Cuff Location: Left Arm; Cuff Size: Standard 06-11-2021 08:12-0400 Body height 156.21 cm Joan Davis LPN [facility]; [facility] Work Phone: 06-11-2021 08:12-0400 Body mass index (BMI) [Ratio] 20.1 kg/m2 Joan Davis [employer] SAL[employer] ASSIST[employer] [facility]; [facility] Work Phone: 06-11-2021 08:12-0400 Body surface area Derived from formula 1.46 m2 Joan Davis [employer] SAL[employer] ASSISTANT [facility]; [facility] Work Phone: 06-11-2021 08:12-0400 Body temperature 97.1 [degF] Joan Davis [employer] SALES ASSISTANT [facility]; [facility] Work Phone: Comment on above: Method: Temporal 06-11-2021 08:12-0400 Body weight 49.05 kg Joan Davis [employer] SAL[employer] ASSIST[employer] [facility]; [facility] Work Phone: 06-11-2021 08:12-0400 Diastolic blood pressure 84 mm[Hg] Joan Davis [employer] SALES ASSISTANT [facility]; [facility] Work Phone: Comment on above: Patient Position: Si tting; Cuff Location: Left Arm; Cuff Size: Standard 06-11-2021 08:12-0400 Heart rate 68 /min Joan Davis [employer] SALES ASSISTANT [facility]; [facility] Work Phone: Comment on above: Pattern: Regular 06-11-2021 08:12-0400 Respiratory rate 16 /min Joan Davis [employer] SALES ASSISTANT [facility]; [facility] Work Phone: Comment on above: Pattern: Unlabored 06-11-2021 08:12-0400 SaO2% (BldA) [Mass fraction] 96 % Joan Davis [employer] SALES ASSISTANT [facility]; [facility] Work Phone: Comment on above: Room air 06-11-2021 08:12-0400 Systolic blood pressure 130 mm[Hg] Jaon Davis [employer] SALES ASSISTANT [facility]; [facility] Work Phone: Comment on above: Patient Position: Si tting; Cuff Location: Left Arm; Cuff Size: Standard 04-02-2021 08:38-0400 Body height 156.21 cm Maxine Slarb [employer] SALES ASSISTANT [facility]; [facility] Work Phone: 04-02-2021 08:38-0400 Body mass index (BMI) [Ratio] 20.1 kg/m2 Maxine Slarb [employer] SAL[employer] ASSISTANT [facility]; [facility] Work Phone: 04-02-2021 08:38-0400 Body surface area Derived from formula 1.46 m2 Maxine Slarb [employer] SALES ASSISTANT [facility]; [facility] Work Phone: 04-02-2021 08:38-0400 Body temperature 97.7 [degF] Maxine Slarb [employer] SALES ASSISTANT [facility]; [facility] Work Phone: 04-02-2021 08:38-0400 Body weight 49.05 kg Maxine Slarb [employer] SALES ASSISTANT [facility]; [facility] Work Phone: 04-02-2021 08:38-0400 Diastolic blood pressure 62 mm[Hg] Maxine Slarb [employer] SALES ASSISTANT [facility]; [facility] Work Phone: Comment on above: Patient Position: Si tting; Cuff Location: Left Arm; Cuff Size: Standard 04-02-2021 08:38-0400 Heart rate 74 /min Maxine Slarb [employer] SALES ASSISTANT [facility]; [facility] Work Phone: Comment on above: Pattern: Regular 04-02-2021 08:38-0400 Respiratory rate 16 /min Maxine Slarb [employer] SALES ASSISTANT [facility]; [facility] Work Phone: Comment on above: Pattern: Unlabored 04-02-2021 08:38-0400 SaO2% (BldA) [Mass fraction] 97 % Maxine Slarb [employer] SALES ASSISTANT [facility]; [facility] Work Phone: Comment on above: Room air 04-02-2021 08:38-0400 Systolic blood pressure 104 mm[Hg] Maxine Jimenez LPN [facility]; [facility] Work Phone: Comment on above: Patient Position: Si tting; Cuff Location: Left Arm; Cuff Size: Standard 03-25-2021 09:58-0400 Body mass index (BMI) [Ratio] 22 kg/m2 Dr. Bessie De Luna Work Phone: [facility] Work Phone: 03-24-2021 09:20-0400 Body height 156.21 cm Katlyn Johnston [facility]; [facility] Work Phone: 03-24-2021 09:20-0400 Body mass index (BMI) [Ratio] 21.01 kg/m2 Katlyn Johnston [facility]; [facility] Work Phone: 03-24-2021 09:20-0400 Body surface area Derived from formula 1.49 m2 Katlyn Johnston [facility]; [facility] Work Phone: 03-24-2021 09:20-0400 Body temperature 98 [degF] Katlyn Johnston [facility]; [facility] Work Phone: Comment on above: Method: Temporal 03-24-2021 09:20-0400 Body weight 51.27 kg Katlyn Johnston [facility]; [facility] Work Phone: 03-24-2021 09:20-0400 Diastolic blood pressure 94 mm[Hg] Katlyn Johnston [facility]; [facility] Work Phone: Comment on above: Patient Position: Si tting; Cuff Location: Left Arm; Cuff Size: Standard 03-24-2021 09:20-0400 Heart rate 84 /min Katlyn Johnston [facility]; [facility] Work Phone: Comment on above: Pattern: Regular 03-24-2021 09:20-0400 Respiratory rate 12 /min Katlyn Johnston [facility]; [facility] Work Phone: Comment on above: Pattern: Unlabored 03-24-2021 09:20-0400 SaO2% (BldA) [Mass fraction] 94 % Katlyndaya Johnston [facility]; [facility] Work Phone: Comment on above: Room air 03-24-2021 09:20-0400 Systolic blood pressure 112 mm[Hg] Katlyn Johnston [facility]; [facility] Work Phone: Comment on above: Patient Position: Si tting; Cuff Location: Left Arm; Cuff Size: Standard 02-04-2021 13:33-0400 Body height 156.21 cm JONNY Harrison LPN [facility]; [facility] Work Phone: 02-04-2021 13:33-0400 Body mass index (BMI) [Ratio] 21.01 kg/m2 JONNY Harrison LPN [facility]; [facility] Work Phone: 02-04-2021 13:33-0400 Body surface area Derived from formula 1.49 m2 JONNY Harrison LPN [facility]; [facility] Work Phone: 02-04-2021 13:33-0400 Body temperature 97.8 [degF] JONNY Harrison LPN [facility]; [facility] Work Phone: Comment on above: Method: Temporal 02-04-2021 13:33-0400 Body weight 51.27 kg JONNY Harrison LPN [facility]; [facility] Work Phone: 02-04-2021 13:33-0400 Diastolic blood pressure 70 mm[Hg] JONNY Harrison LPN [facility]; [facility] Work Phone: Comment on above: Patient Position: Si tting; Cuff Location: Left Arm; Cuff Size: Standard 02-04-2021 13:33-0400 Heart rate 78 /min JONNY Harrison LPN [facility]; [facility] Work Phone: Comment on above: Pattern: Regular 02-04-2021 13:33-0400 Respiratory rate 18 /min JONNY Harrison LPN [facility]; [facility] Work Phone: Comment on above: Pattern: Unlabored 02-04-2021 13:33-0400 SaO2% (BldA) [Mass fraction] 97 % JONNY Harrison [facility]; [facility] Work Phone: Comment on above: Room air 02-04-2021 13:33-0400 Systolic blood pressure 138 mm[Hg] JONNY Harrison [facility]; [facility] Work Phone: Comment on above: Patient Position: Si tting; Cuff Location: Left Arm; Cuff Size: Standard 12-01-2020 11:28-0500 BMI (Body Mass Index) 20.82 kg/m2 [facility] Work Phone: 12-01-2020 11:28-0500 Body weight 50.81 kg [facility] Work Phone: 12-01-2020 11:28-0500 BP Diastolic 72 mm[Hg] [facility]; [facility] Work Phone: Comment on above: Patient Position: Si tting; Cuff Location: Left Arm; Cuff Size: Standard 12-01-2020 11:28-0500 BP Systolic 122 mm[Hg] [facility]; [facility] Work Phone: Comment on above: Patient Position: Si tting; Cuff Location: Left Arm; Cuff Size: Standard 12-01-2020 11:28-0500 BSA (Body Surface Area) 1.49 m2 [facility]; [facility] Work Phone: 12-01-2020 11:28-0500 Height 156.21 cm [facility]; [facility] Work Phone: 11-06-2020 09:45-0500 BMI (Body Mass Index) 20.82 kg/m2 JONNY Harrison [facility]; [facility] Work Phone: 11-06-2020 09:45-0500 Body Temperature 97.7 [degF] JONNY Harrison [facility]; [facility] Work Phone: Comment on above: Method: Temporal 11-06-2020 09:45-0500 Body weight 50.81 kg JONNY Harrison DENNIS [facility]; [facility] Work Phone: 11-06-2020 09:45-0500 BP Diastolic 78 mm[Hg] JONNYMADDI Harrison LPN [facility]; [facility] Work Phone: Comment on above: Patient Position: Si tting; Cuff Location: Left Arm; Cuff Size: Standard 11-06-2020 09:45-0500 BP Systolic 124 mm[Hg] JONNYMADDI Harrison LPN [facility]; [facility] Work Phone: Comment on above: Patient Position: Si tting; Cuff Location: Left Arm; Cuff Size: Standard 11-06-2020 09:45-0500 BSA (Body Surface Area) 1.49 m2 JONNY Harrison LPN [facility]; [facility] Work Phone: 11-06-2020 09:45-0500 Height 156.21 cm JONNY Hunter COLLINS [facility]; [facility] Work Phone: 11-06-2020 09:45-0500 Pulse (Heart Rate) 86 /min JONNYMADDI Harrison LPN [facility]; [facility] Work Phone: Comment on above: Pattern: Regular 11-06-2020 09:45-0500 Pulse Oximetry 95 % Bessie De Luna [facility]; [facility] Work Phone: Comment on above: Room air 11-06-2020 09:45-0500 Respiratory Rate 18 /min JONNY Hunter COLLINS [facility]; [facility] Work Phone: Comment on above: Pattern: Unlabored 11-06-2020 09:45-0500 SaO2% (BldA) [Mass fraction] 95 % JONNY Harrison LPN [facility]; [facility] Work Phone: Comment on above: Room air 10-27-2020 15:46-0500 BMI (Body Mass Index) 20.82 kg/m2 JONNY Harrison LPN [facility]; [facility] Work Phone: 10-27-2020 15:46-0500 Body Temperature 97.9 [degF] JONNY Harrison DENNIS [facility]; [facility] Work Phone: Comment on above: Method: Temporal 10-27-2020 15:46-0500 Body weight 50.8 kg JONNY Harrison DENNIS [facility]; [facility] Work Phone: 10-27-2020 15:46-0500 BP Diastolic 80 mm[Hg] JONNY Harrison DENNIS [facility]; [facility] Work Phone: Comment on above: Patient Position: Si tting; Cuff Location: Left Arm; Cuff Size: Standard 10-27-2020 15:46-0500 BP Systolic 132 mm[Hg] JONNY Harrison DENNIS [facility]; [facility] Work Phone: Comment on above: Patient Position: Si tting; Cuff Location: Left Arm; Cuff Size: Standard 10-27-2020 15:46-0500 BSA (Body Surface Area) 1.49 m2 JONNY Harrison DENNIS [facility]; [facility] Work Phone: 10-27-2020 15:46-0500 Height 156.21 cm JONNY Harrison DENNIS [facility]; [facility] Work Phone: 10-27-2020 15:46-0500 Pulse (Heart Rate) 74 /min JONNY Harrison DENNIS [facility]; [facility] Work Phone: Comment on above: Pattern: Regular 10-27-2020 15:46-0500 Pulse Oximetry 98 % Bessie De Luna [facility]; [facility] Work Phone: Comment on above: Room air 10-27-2020 15:46-0500 Respiratory Rate 20 /min JONNY Harrison DENNIS [facility]; [facility] Work Phone: Comment on above: Pattern: Unlabored 10-27-2020 15:46-0500 SaO2% (BldA) [Mass fraction] 98 % JONNY Harrison [employer] [facility]; [facility] Work Phone: Comment on above: Room air 09-01-2020 13:55-0500 BMI (Body Mass Index) 20.63 kg/m2 JONNY Harrison [facility] Work Phone: Comment on above: weight was reported per patient 09-01-2020 13:55-0500 Body Temperature 97.8 [degF] JONNY Harrison [facility] Work Phone: Comment on above: Method: Temporal weight was reported per patient 09-01-2020 13:55-0500 Body weight 50.35 kg JONNY Harrison [facility] Work Phone: Comment on above: weight was reported per patient 09-01-2020 13:55-0500 BP Diastolic 78 mm[Hg] JONNY Harrison [facility] Work Phone: Comment on above: Patient Position: Si tting; Cuff Location: Left Arm; Cuff Size: Standard weight was reported per patient 09-01-2020 13:55-0500 BP Systolic 124 mm[Hg] JONNY Harrison [facility] Work Phone: Comment on above: Patient Position: Si tting; Cuff Location: Left Arm; Cuff Size: Standard weight was reported per patient 09-01-2020 13:55-0500 BSA (Body Surface Area) 1.48 m2 JONNY Harrison [facility] Work Phone: Comment on above: weight was reported per patient 09-01-2020 13:55-0500 Height 156.21 cm JONNY Harrison [facility] Work Phone: Comment on above: weight was reported per patient 09-01-2020 13:55-0500 Pulse (Heart Rate) 78 /min JONNYMADDI Harrison [facility] Work Phone: Comment on above: Pattern: Regular weight was reported per patient 09-01-2020 13:55-0500 Pulse Oximetry 99 % Bessie De Luna [facility] Work Phone: Comment on above: Room air weight was reported per patient 09-01-2020 13:55-0500 Respiratory Rate 20 /min JONNY Harrison [employer] SAL[employer] ASSIST[employer] [facility] Work Phone: Comment on above: Pattern: Unlabored weight was reported per patient 09-01-2020 13:55-0500 SaO2% (BldA) [Mass fraction] 99 % JONNY Harrison [facility]; [facility] Work Phone: Comment on above: Room air weight was reported per patient 07-24-2020 09:07-0400 BP Diastolic 78 mm[Hg] [facility] Work Phone: Comment on above: Patient Position: Si tting; Cuff Location: Left Arm; Cuff Size: Standard 07-24-2020 09:07-0400 BP Systolic 128 mm[Hg] [facility] Work Phone: Comment on above: Patient Position: Si tting; Cuff Location: Left Arm; Cuff Size: Standard 07-24-2020 09:07-0400 Pulse (Heart Rate) 77 /min [facility] Work Phone: Comment on above: Pattern: Regular 07-24-2020 09:07-0400 Pulse Oximetry 99 % Bessie De Luna [facility] Work Phone: Comment on above: Room air 07-24-2020 09:07-0400 Respiratory Rate 16 /min [facility] Work Phone: Comment on above: Pattern: Unlabored 07-24-2020 09:07-0400 SaO2% (BldA) [Mass fraction] 99 % Idalmis Issac [facility]; [facility] Work Phone: Comment on above: Room air 07-07-2020 12:54-0400 BMI (Body Mass Index) 20.45 kg/m2 [facility] Work Phone: 07-07-2020 12:54-0400 Body Temperature 97 [degF] [facility] Work Phone: Comment on above: Method: Thermal Scan 07-07-2020 12:54-0400 Body weight 49.9 kg Idalmis Cross [employer] SAL[employer] ASSISTANT [facility] Work Phone: 07-07-2020 12:54-0400 BP Diastolic 70 mm[Hg] Idalmis Davenport [facility] Work Phone: Comment on above: Patient Position: Si tting; Cuff Location: Left Arm; Cuff Size: Standard 07-07-2020 12:54-0400 BP Systolic 140 mm[Hg] Idalmisonofre Davenport [facility] Work Phone: Comment on above: Patient Position: Si tting; Cuff Location: Left Arm; Cuff Size: Standard 07-07-2020 12:54-0400 BSA (Body Surface Area) 1.47 m2 Idalmis Davenport [facility] Work Phone: 07-07-2020 12:54-0400 Height 156.21 cm Idalmis Davenport [facility] Work Phone: 07-07-2020 12:54-0400 Pulse (Heart Rate) 79 /min Idalmis Davenport [facility] Work Phone: Comment on above: Pattern: Regular 07-07-2020 12:54-0400 Pulse Oximetry 98 % Bessie De Luna [facility] Work Phone: Comment on above: Room air 07-07-2020 12:54-0400 Respiratory Rate 16 /min Idalmis Davenport [facility] Work Phone: Comment on above: Pattern: Unlabored 07-07-2020 12:54-0400 SaO2% (BldA) [Mass fraction] 98 % [facility]; [facility] Work Phone: Comment on above: Room air 06-09-2020 10:51-0400 BMI (Body Mass Index) 20.45 kg/m2 Janine Serrano [facility] Work Phone: 06-09-2020 10:51-0400 Body Temperature 97.1 [degF] Janine Serrano [facility] Work Phone: Comment on above: Method: Thermal Scan 06-09-2020 10:51-0400 Body weight 49.9 kg Janine Serrano [facility] Work Phone: 06-09-2020 10:51-0400 BP Diastolic 70 mm[Hg] Janine Serrano [facility] Work Phone: Comment on above: Patient Position: Si tting; Cuff Location: Left Arm; Cuff Size: Standard 06-09-2020 10:51-0400 BP Systolic 120 mm[Hg] Janine Serrano [facility] Work Phone: Comment on above: Patient Position: Si tting; Cuff Location: Left Arm; Cuff Size: Standard 06-09-2020 10:51-0400 BSA (Body Surface Area) 1.47 m2 Janine Serrano [facility] Work Phone: 06-09-2020 10:51-0400 Height 156.21 cm Janine Serrano [facility] Work Phone: 06-09-2020 10:51-0400 Pulse (Heart Rate) 60 /min Janine Serrano [facility] Work Phone: Comment on above: Pattern: Regular 06-09-2020 10:51-0400 Pulse Oximetry 96 % Bessie De Luna [facility] Internal Medicine Work Phone: Comment on above: Room air 06-09-2020 10:51-0400 Respiratory Rate 16 /min Janine Serrano [facility] Work Phone: Comment on above: Pattern: Unlabored 06-09-2020 10:51-0400 SaO2% (BldA) [Mass fraction] 96 % Janine Serrano [facility]; [facility] Work Phone: Comment on above: Room air 04-23-2020 11:06-0400 BMI (Body Mass Index) 20.45 kg/m2 Annamaria Mejia [facility] Work Phone: 04-23-2020 11:06-0400 Body Temperature 96.8 [degF] Annamaria Mejia RN [facility] Work Phone: Comment on above: Method: Temporal 04-23-2020 11:06-0400 Body weight 49.9 kg Annamaria Mejia RN [facility] Work Phone: 04-23-2020 11:06-0400 BP Diastolic 86 mm[Hg] Annamaria Mejia RN [facility] Work Phone: Comment on above: Patient Position: Si tting; Cuff Location: Left Arm; Cuff Size: Standard 04-23-2020 11:06-0400 BP Systolic 130 mm[Hg] Annamaria Mejia RN [facility] Work Phone: Comment on above: Patient Position: Si tting; Cuff Location: Left Arm; Cuff Size: Standard 04-23-2020 11:06-0400 BSA (Body Surface Area) 1.47 m2 Annamaria Mejia RN [facility] Work Phone: 04-23-2020 11:06-0400 Height 156.21 cm Annamaria Mejia RN [facility] Work Phone: 04-23-2020 11:06-0400 Pulse (Heart Rate) 81 /min Annamaria Mejia RN [facility] Work Phone: Comment on above: Pattern: Regular 04-23-2020 11:06-0400 Pulse Oximetry 98 % Bessie De Luna [facility] Work Phone: Comment on above: Room air 04-23-2020 11:06-0400 Respiratory Rate 16 /min Annamaria Mejia RN [facility] Work Phone: Comment on above: Pattern: Unlabored 04-23-2020 11:06-0400 SaO2% (BldA) [Mass fraction] 98 % Annamaria Mejia RN [facility]; [facility] Work Phone: Comment on above: Room air 03-16-2020 11:33-0400 BMI (Body Mass Index) 20.82 kg/m2 JONNY Harrison LPN [facility] Work Phone: 03-16-2020 11:33-0400 Body Temperature 97.9 [degF] JONNY Harrison LPN [facility] Work Phone: Comment on above: Method: Temporal 03-16-2020 11:33-0400 Body weight 50.8 kg JONNY Harrison LPN [facility] Work Phone: 03-16-2020 11:33-0400 BP Diastolic 76 mm[Hg] JONNY Harrison LPN [facility] Work Phone: Comment on above: Patient Position: Si tting; Cuff Location: Left Arm; Cuff Size: Standard 03-16-2020 11:33-0400 BP Systolic 124 mm[Hg] JONNY Harrison LPN [facility] Work Phone: Comment on above: Patient Position: Si tting; Cuff Location: Left Arm; Cuff Size: Standard 03-16-2020 11:33-0400 BSA (Body Surface Area) 1.49 m2 JONNY Harrison LPN [facility] Work Phone: 03-16-2020 11:33-0400 Height 156.21 cm JONNY Harrison LPN [facility] Work Phone: 03-16-2020 11:33-0400 Pulse (Heart Rate) 76 /min JONNY Harrison LPN [facility] Work Phone: Comment on above: Pattern: Regular 03-16-2020 11:33-0400 Pulse Oximetry 98 % Bessiegiovanny De Luna [facility] Work Phone: Comment on above: Room air 03-16-2020 11:33-0400 Respiratory Rate 18 /min JONNY Harrison LPN [facility] Work Phone: Comment on above: Pattern: Unlabored 03-16-2020 11:33-0400 SaO2% (BldA) [Mass fraction] 98 % JONNY Harrison LICENSED INVESTMENT SALES ASSISTANT [facility]; [facility] Work Phone: Comment on above: Room air 11-22-2018 12:19-0500 Respiratory Rate 16 /min Gina Daniels [facility] 11-22-2018 08:38-0500 Body Temperature 98.49 [degF] Gina Daniels [facility] 11-22-2018 08:38-0500 BP Diastolic 67 mm[Hg] Gina Daniels [facility] 11-22-2018 08:38-0500 BP Systolic 107 mm[Hg] Gina Daniels [facility] 11-22-2018 08:38-0500 Pulse (Heart Rate) 74 /min Gina Daniels [facility] 11-22-2018 08:38-0500 Pulse Oximetry 98 % Gina Daniels [facility] 11-19-2018 17:24-0500 BMI (Body Mass Index) 20.12 kg/m2 Gina Daniels [facility] 11-19-2018 17:24-0500 Height 157.5 cm Gina Daniels [facility] 11-19-2018 17:24-0500 Weight 49.9 kg Gina Daniels [facility] NEGATED: Highlighted [id number] 09:47-0400 Body height 154.94 cm Nataleera Louis AT [facility] Work Phone: NEGATED: Highlighted [id number] 09:47-0400 Body height 155 cm Natalee Heriberto AT [facility] Work Phone: NEGATED: Highlighted [id number] 09:47-0400 Body mass index (BMI) [Ratio] 20.67 kg/m2 Natalee Heriberto AT [facility] Work Phone: NEGATED: Highlighted [id number] 09:47-0400 Body weight 49.44 kg Natalee Newensky AT [facility] Work Phone: NEGATED: Highlighted [id number] 09:47-0400 Body weight 50 kg Natalee Dorisky AT [facility] Work Phone: Encounters Encounter Date Encounter Type Care Provider Facility Start: 07-07-2025 ambulatory Bessie De Luna Facility:[facility] Start: 07-04-2025 End: 07-04-2025 ambulatory Dharmesh Rouse Facility:[facility] Start: 06-30-2025 ambulatory Bessie De Luna Facility:[facility] Start: 05-28-2025 End: 05-28-[address] Oli Rodriguez MD -[facility] Start: 05-28-2025 End: 05-28-[address] Bessie De Luna MD Work Phone: -[facility] Start: 05-19-2025 End: 05-19-[address] Bessie De Luna MD Work Phone: -[facility] Start: 05-19-2025 End: 05-19-[address] Seun Bueno MD -[facility] Work Phone: Start: 05-19-2025 End: 05-19-2025 ambulatory Bessie De Luna Facility:[facility] Start: 05-06-2025 End: 05-06-[address] Seun Bueno MD -[facility] Work Phone: Start: 05-06-2025 End: 05-06-[address] Bessie De Luna MD Work Phone: -[facility] Start: 04-23-2025 End: 04-23-2025 Telephone encounter Physician Vascular Surgery Work Phone: Vascular Surg Dept Comment on above: Patient Update Start: 04-21-2025 End: 04-21-2025 Telephone encounter All Espinosa MD Work Phone: V[facility] Surg Dept Comment on above: records Start: 04-11-2025 End: 04-11-2025 Telephone encounter All Espinosa MD Work Phone: Vascular Surg Dept Comment on above: Consult Start: 04-02-2025 End: 04-02-2025 Office outpatient visit 25 minutes Fili Wen MD Work Phone: [facility] Comment on above: Senile osteoporosis (Primary Dx); Menopause; Nonspecific abnormal results of endocrine function study Start: 04-02-2025 ambulatory FILI WEN Facility:[facility] Start: 03-26-2025 End: 03-26-2025 Telephone encounter Aspen Yu MD Work Phone: Neurology [facility] Comment on above: fax emg results Start: 03-24-2025 End: 03-24-2025 Patient encounter procedure Emg 2 Neur [place] Mc (Max Weight: 850) Neurology Start: 03-24-2025 End: 03-24-2025 ambulatory BESSIE DE LUNA Neurology Start: 03-03-2025 End: 03-03-2025 Orders Only Aspen Yu MD Work Phone: Neurology Comment on above: Traumatic long thora cic nerve palsy, initial encounter (Primary Dx) Start: 02-15-2025 End: 02-15-2025 Orders Only Jillian Machuca MD Work Phone: Orthopaedics Comment on above: Pain in thoracic spi ne (Primary Dx) Start: 01-30-2025 Non-patient / Non-visit [facility] Contreras [facility] Work Phone: Start: 01-30-2025 End: 01-30-[address] Bessie De Luna MD Work Phone: [facility] Work Phone: Start: 01-30-2025 End: 01-30-[address] Bessie De Luna MD -Pulmonary Services/Neurology Work Phone: Start: 01-30-2025 End: 01-30-2025 ambulatory Bessie De Luna Facility:[facility] Start: 11-14-2024 End: 11-14-[address] Bessie De Luna MD -Ultrasound, [facility] Work Phone: Start: 11-14-2024 End: 11-14-2024 ambulatory Bessie De Luna Facility:[facility] Start: 11-04-2024 End: 11-04-2024 [facility] Start: 11-04-2024 Registered Recurring Self Referred - Physical Therapy Work Phone: Start: 09-20-2024 End: 09-20-2024 ambulatory Bessie De Luna Facility:[facility] Start: 09-09-2024 End: 09-09-2024 Patient encounter procedure [facility] Hoist [facility] Comment on above: Senile osteoporosis (Primary Dx) Start: 09-09-2024 ambulatory BESSIE ANNAMARIE Facility :[facility] Start: 07-17-2024 End: 07-17-2024 Office outpatient visit 25 minutes Fili Wen MD Work Phone: [facility] Comment on above: Senile osteoporosis (Primary Dx); Menopause; Hypovitaminosis D Start: 07-17-2024 ambulatory FILI WEN Facility:[facility] Start: 07-17-2024 End: 07-17-2024 Subsequent hospital visit by physician Provider Not In System [facility] Comment on above: Arrived Start: 07-11-2024 End: 07-11-2024 Patient encounter procedure Jillian Machuca MD Work Phone: Orthopaedics Comment on above: Status post open red uction and internal fixation (ORIF) of fracture (Primary Dx) Start: 07-11-2024 End: 07-11-2024 ambulatory JILLIAN MACHUCA Facility:[facility] Start: 07-11-2024 End: 07-11-2024 Subsequent hospital visit by physician Xr Main A21 Radiology Comment on above: Status post open red uction and internal fixation (ORIF) of fracture [Z98.890, Z87.81] Start: 07-09-2024 End: 07-09-2024 ambulatory Bessie De Luna Facility:[facility] Start: 04-11-2024 End: 04-11-2024 Patient encounter procedure Jillian Machuca MD Work Phone: Orthopaedics Comment on above: Status post open red uction and internal fixation (ORIF) of fracture (Primary Dx); 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, subsequent encounter Start: 04-11-2024 End: 04-11-2024 Subsequent hospital visit by physician Xr Main A21 Radiology Comment on above: Status post open red uction and internal fixation (ORIF) of fracture [Z98.890, Z87.81] Start: 02-23-2024 Orders Only Jillian smith MD Work Phone: Orthopaedics Comment on above: Closed displaced fra cture of shaft of left clavicle with nonunion, subsequent encounter (Primary Dx); Status post open reduction and internal fixation (ORIF) of fracture Start: 02-21-2024 End: 02-21-2024 Nursing evaluation of patient and report Susannah Ramirez RN Work Phone: Orthopaedics Comment on above: Status post open red uction and internal fixation (ORIF) of fracture (Primary Dx) Start: 02-21-2024 End: 02-21-2024 Preprocedural examination done Xr A21 [facility] Start: 02-21-2024 End: 02-21-2024 Subsequent hospital visit by physician Xr Main A21 Radiology Comment on above: 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, unspecified part of clavicle, subsequent encounter [S42.002K] Start: 01-31-2024 End: 01-31-2024 [facility] Work Phone: Start: 01-31-2024 End: 01-31-2024 Discharged [facility] Work Phone: Start: 01-26-2024 End: 01-26-2024 Nursing evaluation of patient and report Susannah Ramirez RN Work Phone: Orthopaedics Comment on above: History of arthropla sty of left shoulder (Primary Dx) Start: 01-26-2024 End: 01-26-2024 Preprocedural examination done Xr A21 [facility] Start: 01-26-2024 End: 01-26-2024 Subsequent hospital visit by physician Xr Main A21 Radiology Comment on above: 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, unspecified part of clavicle, subsequent encounter [S42.002K] Start: 01-09-2024 End: 01-09-2024 [facility] Comment on above: Senile osteoporosis (Primary Dx) Start: 01-08-2024 End: 01-08-2024 Patient encounter procedure Jillian Machuca MD Work Phone: Orthopedics Comment on above: Closed displaced fra cture of shaft of left clavicle with nonunion, subsequent encounter (Primary Dx) Start: 01-04-2024 ambulatory Jillian smith MD Work Phone: Orthopaedics Start: 01-04-2024 Preprocedural examination done Jillian Machuca MD Work Phone: [facility] Work Phone: Start: 12-27-2023 End: 12-27-2023 Orders Only Sasha Espino PA-C Work Phone: [facility] [place] Comment on above: Pain (Primary Dx) Pain [R52] Start: 12-26-2023 End: 12-26-2023 Nursing evaluation of patient and report Susannah Ramirez RN Work Phone: Orthopedics Comment on above: History of removal o f retained hardware (Primary Dx); S/P excision of lipoma Start: 12-12-2023 End: 12-12-2023 amb[facility] Start: 12-12-2023 Encounter for other preprocedural examination [facility] Start: 11-27-2023 End: 11-27-2023 [facility] Work Phone: [facility] Start: 11-27-2023 End: 11-27-2023 ambulatory [facility] 1 Work Phone: Pre Anesthesia Comment on above: Pre-operative examin ation (Primary Dx); Hypertension, unspecified type; VHD (valvular heart disease); Osteopenia, unspecified location; Irritable bowel syndrome, unspecified type; Mixed hyperlipidemia Start: 11-27-2023 End: 11-27-2023 Preprocedural examination done [facility] 1 Work Phone: [facility] Work Phone: Start: 11-23-2023 End: 11-23-2023 Subsequent hospital visit by physician [facility] Main Qb1 (I-Stat) Radiology Comment on above: History of removal o f retained hardware [Z98.890] Start: 11-17-2023 ambulatory Jillian smith MD Work Phone: Orthopaedics Start: 11-17-2023 Preprocedural examination done Jillian Machuca MD Work Phone: [facility] Work Phone: Start: 08-12-2023 End: 08-12-2023 Phone Encounter Bessie De Luna MD Work Phone: [facility] Start: 08-10-2023 End: 08-10-2023 Patient encounter procedure Jillian Machuca MD Work Phone: Orthopaedics Comment on above: History of removal o f retained hardware (Primary Dx); 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, unspecified part of clavicle, subsequent encounter Start: 08-10-2023 End: 08-10-2023 Subsequent hospital visit by physician Xr Main A21 Radiology Comment on above: History of removal o f retained hardware [Z98.890] Start: 08-09-2023 End: 08-09-2023 ambulatory [facility] Work Phone: Start: 08-09-2023 End: 08-09-2023 Patient encounter procedure [facility] Work Phone: Start: 08-08-2023 End: 08-10-2023 Office outpatient visit 10 minutes Bessie De Luna MD Work Phone: [facility] Start: 08-01-2023 End: 08-01-2023 Prescription Refill Bessie De Luna MD Work Phone: [facility] Start: 07-31-2023 End: 08-08-2023 Phone Encounter Bessie De Luna MD Work Phone: [facility] Start: 07-31-2023 Review Bessie Flores Work Phone: [facility] Start: 07-18-2023 Orders Only Jillian smith MD Work Phone: [facility] [place] Comment on above: 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, subsequent encounter (Primary Dx); History of left shoulder replacement Start: 07-10-2023 End: 07-10-2023 Office outpatient visit 25 minutes Bessie De Luna MD Work Phone: [facility] Start: 07-10-2023 End: 07-10-2023 Patient encounter procedure Bessie De Luna MD Work Phone: [facility] Start: 07-10-2023 End: 07-10-2023 Patient encounter status Bessie De Luna MD Work Phone: [facility]; [facility] Work Phone: Start: 07-10-2023 Patient encounter procedure Bessie De Luna MD Work Phone: [facility] Start: 07-10-2023 Patient encounter status Bessie De Luna MD Work Phone: [facility] Start: 07-10-2023 Review Bessie Flores Work Phone: [facility] Start: 06-08-2023 End: 06-08-2023 Subsequent hospital visit by physician Fili Wen MD Work Phone: [facility] Comment on above: Arrived Start: 05-15-2023 End: 05-15-2023 [facility] Start: 05-15-2023 End: 05-15-2023 Patient encounter procedure Sasha Syed Espino PA-C Work Phone[facility] Comment on above: History of removal o f retained hardware (Primary Dx); Chronic left shoulder pain Start: 05-08-2023 ambulatory [facility] Start: 05-02-2023 End: 05-15-2023 Annotation/Addendum Bessie De Luna MD Work Phone: [facility] Start: 05-02-2023 Review Bessie Flores Work Phone: [facility] Start: 04-28-2023 End: 04-28-2023 Subsequent hospital visit by physician [facility] Work Phone: Nuclear Medicine Comment on above: 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, unspecified part of clavicle, subsequent encounter [S42.002K] Start: 04-24-2023 End: 04-27-2023 Annotation/Addendum Bessie De Luna MD Work Phone: [facility] Start: 04-24-2023 End: 06-02-2023 Office outpatient visit 10 minutes Bessie De Luna MD Work Phone: [facility] Start: 04-24-2023 Review Bessie Flores Work Phone: [facility] Start: 04-14-2023 Orders Only Jillian smith MD Work Phone: Orthopaedics Comment on above: Open fracture of lef t scapula with delayed healing, unspecified part of scapula, subsequent encounter (Primary Dx); Closed fracture of left shoulder, sequela; 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, subsequent encounter Start: 04-07-2023 Telephone encounter Jillian rodriguez MD Work Phone: [employer] Comment on above: Appointment Start: 03-31-2023 ambulatory [facility] Facility :[facility] Start: 03-31-2023 End: 03-31-2023 Subsequent hospital visit by physician [facility] Comment on above: 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, unspecified part of clavicle, subsequent encounter [S42.002K] Start: 03-30-2023 Orders Only Jillian smith MD Work Phone: [employer] Comment on above: 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, unspecified part of clavicle, subsequent encounter (Primary Dx) Start: 03-23-2023 End: 03-23-2023 Lab Order Bessie De Luna MD Work Phone: [facility] Start: 03-06-2023 ambulatory [facility] Facility :[facility] Start: 03-06-2023 End: 03-06-2023 Subsequent hospital visit by physician [facility] Comment on above: History of removal o f retained hardware [Z98.890] Start: 02-22-2023 ambulatory [facility] Start: 02-10-2023 End: 02-10-2023 Nursing evaluation of patient and report Susannah Ramirez 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 Start: 01-11-2023 End: 01-11-2023 Admission to establishment [facility] [place] [facility] Work Phone: [facility] Start: 01-11-2023 End: 01-11-2023 ambulatory [facility] [facility] Work Phone: Pre Anesthesia Comment on above: Pre-operative examin ation (Primary Dx); MVP (mitral valve prolapse); Hypertension, unspecified type; VHD (valvular heart disease); Irritable bowel syndrome, unspecified type; Osteopenia, unspecified location Start: 01-11-2023 End: 01-11-2023 Preprocedural examination done [facility] [place] [facility] Work Phone: Pre Anesthesia Start: 01-10-2023 End: 01-10-2023 Office outpatient visit 25 minutes Bessie De Luna MD Work Phone: [facility] Start: 01-10-2023 End: 01-10-2023 Patient encounter status Bessie De Luna MD Work Phone: [facility]; [facility] Work Phone: Start: 12-31-2022 Orders Only Jillian smith MD Work Phone: Orthopaedics Comment on above: Closed displaced fra cture of shaft of left clavicle with nonunion, subsequent encounter (Primary Dx); 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, unspecified part of clavicle, subsequent encounter Start: 12-28-2022 End: 12-28-2022 Prescription Refill Bessie De Luna MD Work Phone: [facility] Start: 12-08-2022 ambulatory Jillian smith MD Work Phone: Orthopaedics Start: 12-08-2022 Preprocedural examination done Jillian Machuca MD Work Phone: Orthopaedics Start: 11-10-2022 End: 11-10-2022 Patient encounter procedure Jillian Machuca MD Work Phone: Orthopaedics Comment on above: 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, unspecified part of clavicle, subsequent encounter (Primary Dx) Start: 2022 End: 2022 Phone Encounter Bessie De Luna MD Work Phone: [facility] Start: 10-13-2022 End: 10-13-2022 Subsequent hospital visit by physician [facility] Work Phone: [facility] Comment on above: Closed fracture of l eft shoulder, sequela [S42.92XS] Start: 10-04-2022 End: 10-04-2022 ambulatory [facility] Work Phone: Start: 10-04-2022 End: 10-04-2022 Discharged Recurring [facility]-Physical Therapy Start: 09-29-2022 End: 09-29-2022 Office outpatient visit 25 minutes Bessie De Luna MD Work Phone: [facility] Start: 09-16-2022 Telephone encounter Jillian rodriguez MD Work Phone: Orthopaedics Comment on above: Follow Up Start: 08-09-2022 End: 08-09-2022 ambulatory [facility] Work Phone: Start: 08-09-2022 End: 08-09-2022 Discharged Recurring [facility] Start: 08-09-2022 Registered Recurring [facility] Start: 08-05-2022 End: 08-05-2022 ambulatory [facility] Work Phone: Start: 08-05-2022 End: 08-05-2022 Patient encounter procedure [facility]Outpatient [facility] Start: 07-13-2022 End: 07-17-2022 Office outpatient visit 5 minutes Bessie De Luna MD Work Phone: [facility] Start: 07-05-2022 End: 07-15-2022 Patient encounter procedure Bessie De Luna MD Work Phone: [facility] Start: 07-05-2022 End: 07-15-2022 Patient encounter status Bessie De Luna MD Work Phone: [facility] Start: 06-21-2022 End: 06-21-2022 Phone Encounter Bessie De Luna MD Work Phone: [facility] Start: 06-15-2022 End: 06-15-2022 Office outpatient visit 25 minutes Fili Wen MD Work Phone: [facility] Comment on above: Osteoporosis with pa thological fracture with delayed healing, subsequent encounter (Primary Dx); Menopause Start: 06-15-2022 End: 06-15-2022 Subsequent hospital visit by physician Fili Wen MD Work Phone: [facility] Comment on above: Arrived Start: 06-15-2022 End: 06-15-2022 Nursing evaluation of patient and report Bessie De Luna MD Work Phone: [facility] Start: 06-14-2022 End: 06-14-2022 ambulatory Sancho Diaz MD Work Phone: Colorectal Surgery Comment on above: Partial intestinal o bstruction, unspecified cause (HCC) (Primary Dx) Start: 06-14-2022 End: 06-14-2022 Telemedicine consultation with patient Sancho Diaz MD Work Phone: [facility] Start: 06-05-2022 End: 06-05-2022 Lab Order Bessie De Luna MD Work Phone: [facility] Start: 06-03-2022 End: 06-03-2022 Phone Encounter Bessie De Luna MD Work Phone: [facility] Start: 06-03-2022 End: 06-15-2022 Office outpatient visit 5 minutes Bessie De Luna MD Work Phone: [facility] Start: 05-25-2022 Telephone encounter Sancho Bonds MD Work Phone: Colorectal Surgery Comment on above: Patient Update Start: 05-20-2022 Telephone encounter Susan Medina MD Work Phone: Colorectal Surgery Comment on above: Returning Patient's Call Start: 05-20-2022 End: 05-20-2022 Subsequent hospital visit by physician Sancho Diaz MD Work Phone: Gastroenterology Comment on above: Partial intestinal o bstruction, unspecified cause (HCC) [K56.600] Start: 03-07-2022 End: 03-07-2022 Patient encounter procedure Jillian Machuca MD Work Phone: Orthopedics Comment on above: Shoulder impingement syndrome, left (Primary Dx) Start: 03-03-2022 End: 03-03-2022 Subsequent hospital visit by physician [facility] (I-Stat/1.5t) Work Phone: Radiology Comment on above: Chronic left shoulde r pain [M25.512, G89.29] Start: 02-21-2022 End: 02-21-2022 Office outpatient visit 40 minutes Bessie De Luna MD Work Phone: [facility] Start: 02-14-2022 End: 02-14-2022 Subsequent hospital visit by physician Yarelis Del Rosario Radiology Comment on above: shoulder Start: 02-04-2022 End: 02-04-[address] Bessie De Luna Work Phone: [facility] Start: 01-26-2022 Orders Only Sancho Diaz MD Work Phone: Colorectal Surgery Comment on above: Partial intestinal o bstruction, unspecified cause (HCC) (Primary Dx) Start: 01-25-2022 End: 01-25-2022 ambulatory Sancho Diaz MD Work Phone: Colorectal Surgery Comment on above: Partial intestinal o bstruction, unspecified cause (HCC) (Primary Dx) Start: 01-25-2022 End: 01-25-2022 Telemedicine consultation with patient Sancho Diaz MD Work Phone: [facility] Start: 01-14-2022 End: 01-17-2022 Office outpatient visit 25 minutes Bessie De Luna MD Work Phone: [facility] Start: 01-10-2022 End: 01-10-2022 Office outpatient visit 25 minutes Bessie De Luna MD Work Phone: [facility] Start: 01-10-[address] Bessie De Luna Work Phone: [facility] Start: 12-29-2021 End: 12-29-[address] Bessie De Luna Work Phone: [facility] Start: 12-29-2021 End: 01-03-2022 Office outpatient visit 15 minutes Bessie De Luna MD Work Phone: [facility] Start: 12-27-2021 End: 12-27-[address] Bessie De Luna Work Phone: [facility] Start: 12-24-2021 Non-patient / Non-visit Dr. Uriostegui Work Phone: [facility] Start: 12-24-2021 End: 12-24-2021 Admission to same day surgery center Dr. Bessie De Luna Work Phone: [facility] Start: 12-20-2021 Non-patient / Non-visit Dr. Uriostegui Work Phone: [facility] Start: 12-20-2021 Non-patient / Non-visit Dr. Uriostegui Work Phone: [facility] Start: 12-19-2021 Non-patient / Non-visit Dr. Uriostegui Work Phone: [facility] Start: 12-19-2021 End: 12-20-2021 Evaluation and management of inpatient Dr. Bessie De Luna Work Phone: [facility] Start: 12-13-2021 End: 12-13-[address] Bessie De Luna Work Phone: [facility] Start: 12-13-[address] Bessie De Luna Work Phone: [facility] Start: 11-15-2021 Review Bessie Flores Work Phone: [facility] Start: 11-11-2021 End: 11-11-2021 Office outpatient visit 40 minutes Bessie De Luna MD Work Phone: [facility] Start: 11-11-2021 End: 11-11-2021 Patient encounter procedure Bessie De Luna MD Work Phone: [facility] Start: 10-12-2021 End: 10-12-[address] 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, unspecified part of clavicle, subsequent encounter [S42.002K] Start: 07-13-2021 End: 07-22-2021 Office outpatient visit 25 minutes Bessie De Luna MD Work Phone: [facility] Start: 07-13-2021 End: 07-22-2021 Patient encounter procedure Bessie De Luna MD Work Phone: [facility] Start: 07-09-2021 End: 07-09-2021 Office outpatient visit 15 minutes Bessie De Luna MD Work Phone: [facility] Start: 07-09-2021 End: 07-09-2021 Phone Encounter Bessie De Luna MD Work Phone: [facility] Start: 07-08-2021 End: 07-08-2021 Phone Encounter Bessie De Luna MD Work Phone: [facility] Start: 07-05-2021 End: 07-06-2021 Office outpatient visit 15 minutes Bessie De Luna MD Work Phone: [facility] Start: 06-28-2021 End: 06-28-2021 Lab Order Bessie De Luna MD Work Phone: [facility] Start: 06-11-2021 End: 06-11-2021 Office outpatient visit 15 minutes Bessie De Luna MD Work Phone: [facility] Start: 05-17-2021 End: 05-17-2021 Subsequent hospital visit by physician [facility] Comment on above: shoulder Start: 04-05-2021 End: 04-05-2021 Subsequent hospital visit by physician [facility] Comment on above: 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, unspecified part of clavicle, subsequent encounter [S42.002K] Start: 04-02-2021 End: 04-02-2021 Annotation/Addendum Bessie De Luna MD Work Phone: [facility] Start: 04-02-2021 End: 04-02-2021 Periodic preventive med est patient 65yrs& older Bessie De Luna MD Work Phone: [facility] Start: 03-29-2021 End: 03-29-2021 Phone Encounter Bessie De Luna MD Work Phone: [facility] Start: 03-24-2021 End: 03-24-2021 Office outpatient visit 10 minutes Bessie De Luna MD Work Phone: [facility] Start: 02-22-2021 End: 02-22-2021 Office outpatient visit 15 minutes Bessie De Luna MD Work Phone: [facility] Start: 02-04-2021 End: 02-04-2021 Office outpatient visit 40 minutes Bessie De Luna MD Work Phone: [facility] Start: 01-13-2021 End: 01-23-2021 Office outpatient visit 15 minutes Bessie De Luna [facility] Start: 01-13-2021 Review Bessie Bonezzi [facility] Start: 12-01-2020 End: 12-07-2020 Office outpatient visit 25 minutes Bessie De Luna [facility] Start: 12-01-2020 End: 12-01-2020 Office outpatient visit 10 minutes Bessie De Luna [facility] Start: 11-21-2020 End: 11-21-2020 Orders Only Missy Fernando Work Phone: [facility] Start: 11-06-2020 End: 11-06-2020 Office outpatient visit 25 minutes Bessie De Luna [facility] Start: 10-27-2020 End: 10-27-2020 Office outpatient visit 40 minutes Bessie De Luna [facility] Start: 10-27-2020 Review Bessie Bonezzi [facility] Start: 09-21-2020 End: 09-21-2020 Office outpatient visit 15 minutes Bessie De Luna [facility] Start: 09-04-2020 End: 09-04-2020 Phone Encounter Bessie De Luna [facility] Start: 09-01-2020 Review Bessie Bonezzi [facility] Start: 09-01-2020 End: 09-01-2020 Office outpatient visit 10 minutes Bessie Boneotmaszi [facility] Start: 07-24-2020 End: 07-30-2020 Office outpatient visit 5 minutes Bessie Bonetomaszi [facility] Start: 07-24-2020 Review Bessie Bonezzi [facility] Start: 07-22-2020 End: 07-22-2020 Office outpatient visit 15 minutes Bessie Bonetomaszi [facility] Start: 07-22-2020 Review Bessie Bonezzi [facility] Start: 07-07-2020 End: 07-10-2020 Office outpatient visit 25 minutes Bessie De Luna [facility] Start: 07-07-2020 Review Bessie Bonezzi [facility] Start: 06-09-2020 End: 06-09-2020 Office outpatient visit 40 minutes Bessie De Luna [facility] Start: 06-09-2020 Review Bessie Bonezzi [facility] Start: 05-26-2020 End: 05-26-2020 Office outpatient visit 10 minutes Bessie Bonetomaszi [facility] Start: 05-21-2020 Review Bessie Bonezzi [facility] Start: 04-23-2020 End: 04-23-2020 Office outpatient visit 15 minutes Bessie De Luna [facility] Start: 04-23-2020 Review Bessie Bonezzi [facility] Start: 03-17-2020 End: 03-17-2020 Phone Encounter Bessie De Luna [facility] Start: 03-16-2020 End: 03-22-2020 Office outpatient visit 40 minutes Bessie De Luna [facility] Start: 03-16-2020 End: 03-22-2020 Patient encounter procedure Bessie De Luna MD Work Phone: [facility] Start: 02-25-2020 End: 02-25-2020 Phone Encounter Bessie De Luna [facility] Start: 02-14-2020 End: 02-14-2020 Lab Order Bessie De Luna [facility] Start: 02-14-2020 End: 02-14-2020 Patient encounter status Bessie De Luna MD Work Phone: [facility] Start: 01-27-2020 End: 01-27-2020 Patient encounter procedure Bessie De Luna MD Work Phone: [facility] Start: 01-27-2020 End: 01-27-2020 Periodic preventive med est patient 18-39 yrs Bessie De Luna [facility] Start: 01-17-2020 End: 01-17-2020 Phone Encounter Bessie Annamarie [facility] Start: 11-19-2018 End: 11-22-2018 Patient encounter procedure OTIS REAVES [facility] Start: 11-19-2018 End: 11-22-2018 Evaluation and management of inpatient Gina Daniels Work Phone: [facility] 2 Comment on above: Closed fracture of r amus of left pubis, initial encounter (HCC) (Primary Dx) Patient encounter procedure JONNY Harrison LPN [facility]; [facility] Work Phone: Comment on above: 03-16-2020 JD devi ess: BD 02-25-20, mammogram 05-23-2019, MOCA 28/, cognivue 73, last eye exam was April, and goes annually, colonoscopy 2012, endoscopy 2012 Patient encounter procedure Katlyn Johnston CMA [facility]; [facility] Work Phone: Comment on above: 03-16-2020 JD devi ess: BD 02-25-20, mammogram 05-23-2019, MOCA 28/30, cognivue 73, last eye exam was April, and goes annually, colonoscopy 2012, endoscopy 2013 Patient encounter procedure JONNY Harrison LPN [facility]; [facility] Work Phone: Comment on above: 07-13-21 JD gallagher ss: BD 02-25-20, mammogram 05-26-20, next eye exam scheduled for July 2021 goes annually, colonoscopy 2012, endoscopy 2012, immunizations are up to date Patient encounter procedure Bessie De Luna MD Work Phone: [facility]; [facility] Work Phone: Comment on above: 11-11-2021 [facility] JD wellness: BD 5-12-20, mammogram 10-4-21last eye exam was in July 2021, goes annually, colonoscopy 2012, endoscopy 2012, immunizations are up to date, MOCA 28/30 Cognivue 71 Patient encounter procedure JONNY Harrison LPN [facility]; [facility] Work Phone: Comment on above: 11-11-2021 AMP 1 [facility] wellness: BD 5-12-20, mammogram 10-4-21last eye exam was in July 2021, goes annually, colonoscopy 2012, endoscopy 2012, immunizations are up to date, MOCA 28/30 Cognivue 71 Patient encounter procedure Joan Davis LPN [facility]; [facility] Work Phone: Comment on above: 11-11-2021 AMP 1 [facility] wellness: BD 5-12-20, mammogram 10-4-21last eye exam was in July 2021, goes annually, colonoscopy 2012, endoscopy 2012, immunizations are up to date, MOCA 28/30 Cognivue 71 Patient encounter procedure Bessie De Luna MD Work Phone: [facility]; [facility] Work Phone: Comment on above: 07/05/22 [facility] aileen ss: BD 5-20, mammogram 10-4-21last eye exam was in July 2021, goes annually, colonoscopy 2021, endoscopy 2012, immunizations are up to date, MOCA 28/30 Cognivue 71 Patient encounter procedure Denise Levine MA [facility]; [facility] Work Phone: Comment on above: 07/05/22 [facility] aileen ss: BD 5-12-20, mammogram 10-4-21last eye exam was in July 2021, goes annually, colonoscopy 2021, endoscopy 2012, immunizations are up to date, MOCA 28/30 Cognivue 71 Patient encounter procedure Joan Susan COLLINS [facility]; [facility] Work Phone: Comment on above: 07/05/22 [facility] wellbin ss: BD 5-12-20, mammogram 10-4-21last eye exam was in July 2021, goes annually, colonoscopy 2021, endoscopy 2012, immunizations are up to date, MOCA 28/30 Cognivue 71 Patient encounter procedure Janine Serrano CMA [facility]; [facility] Work Phone: Comment on above: 07/05/22 [facility] aileen ss: BD 02-25-20, mammogram 10-02-03last eye exam was in July 2021, goes annually, colonoscopy 2021, endoscopy 2012, immunizations are up to date, MOCA 30 Cognivue 71 Patient encounter procedure Bessie De Luna MD Work Phone: [facility]; [facility] Work Phone: Comment on above: 07-08 [facility] BD -, mammogram 08/06last eye exam was in O111/06, goes annually, colonoscopy 2021, endoscopy 2012, immunizations are up to date, MOCA Cognivue 74 (was 71) Patient encounter procedure Joan Davis LPN [facility]; [facility] Work Phone: Comment on above: 07-08 [facility] BD 08-06, mammogram 08/06last eye exam was in O111/06, goes annually, colonoscopy 2021, endoscopy 2012, immunizations are up to date, MOCA Cognivue 74 (was 71) End: 09-01-2020 Patient encounter status JONNY Harrison LPN [facility]; [facility] Work Phone: Patient encounter status Bessie De Luna MD Work Phone: [facility]; [facility] Work Phone: Patient encounter status Denies Levine MA [facility]; [facility] Work Phone: Patient encounter status Janine Serrano CMA [facility]; [facility] Work Phone: Patient encounter status Joan Davis LPN [facility]; [facility] Work Phone: Procedures Date Procedure Procedure Detail Performing Clinician Start: 05-19-2025 Folic acid measurement, RBC Dr. Bessie De Luna MD Work Phone: Start: 03-24-2025 Nerve conduction studies 5-6 studies Aspen Yu MD Work Phone: Start: 11-14-2024 US scan of thyroid Dr. Bessie De Luna MD Work Phone: Start: 07-17-2024 Dxa bone density study 1/> sites axial skel Fili Wen MD Work Phone: Start: 07-11-2024 Radex clavicle complete Jillian Machuca MD Work Phone: Start: 04-11-2024 Radex clavicle complete Adelita MAGALLANES Work Phone: Start: 02-21-2024 Radex clavicle complete Miguel Angel Vyas MD Work Phone: Start: 01-26-2024 Radex clavicle complete Sasha Espino PA-C Work Phone: Start: 11-09-2023 H/O: surgery History of rem oval of retained hardware Jillian Machuca MD Work Phone: Start: 08-10-2023 Arthrocentesis aspir&/inj major jt/bursa w/o us Jillian Machuca MD Work Phone: Start: 08-09-2023 Screening mammography Start: 08-09-2023 End: 08-09-2023 SCRN MAMM (CAD)W/NIRU BILAT Procedure Note: See Note; NOTES: [facility] Imaging Services [address] [place] [address] SCRN MAMM (CAD)W/NIRU BILAT MR#: [id number] Acct: [id number] Name: KATHRIN BRAVO Rep #: [id number] : 1950 F 72 From: Ajay artis MD PCP: Dr. Bessie De Luna MD Status: REG CLI Study: SCRN MAMM (CAD)W/NIRU BILAT Date of Exam: 07/17 03/07 Exam# [id number] Ordering Dr: Bessie De Luna MD [id number] MAMMOGRAPHY - BILATERAL SCREENING REASON FOR EXAM: Female, 72 years old. Routine annual screening examination. PERTINENT HISTORY: Non-contributory. TECHNIQUE: Digital bilateral breast niru (3D mammographic acquisition) in the CC and MLO projections. 2-D mediolateral oblique (MLO) and craniocaudad (CC) views of both breasts were obtained. CAD: Full Field Digital Mammography with Computer Added Detection was performed. COMPARISON: Comparison is made with prior study dated August 05, 2022 and July 19, 2021. ___ FINDINGS: Breast Composition: The breasts are extremely dense, which lowers the sensitivity of mammography. There are no dominant masses or suspicious calcifications. Stable small benign-appearing bilateral axillary lymph nodes. No other significant abnormalities are identified. There has been no significant change since the prior study. ___ BI/SCRN MAMM (CAD)W/NIRU BILAT IMPRESSION: Stable bilateral screening mammogram. Yearly follow-up mammogram recommended. (A) ___ ASSESSMENT CATEGORY: BIRADS Category 2: Benign. A letter regarding these results will be sent to the patient by the facility within 30 days. Approximately 10% of breast cancers are not detected by mammography. A normal mammogram should not delay biopsy of a clinically suspicious abnormality. [id number] Electronically Signed: Ajay Lai MD at 11:29 EDT , CC: Dr. eBssie De Luna MD Supervisor Chemical: Signed Bessie De Luna MD Work Phone: Start: 06-08-2023 Radex spine thoracic 2 views Fili Wen MD Work Phone: Start: 04-28-2023 Bone &/joint imaging 3 phase study Jillian Machuca MD Work Phone: Start: 03-06-2023 Radex clavicle complete Flory Tucker MD Work Phone: Start: 01-11-2023 Ecg routine ecg w/least 12 lds i&r only [facility] Provider Start: 10-13-2022 Ct upper extremity w/o contrast material Jillian Machuca MD Work Phone: Start: 08-05-2022 Screening mammography Start: 08-05-2022 End: 08-05-2022 SCRN MAMM (CAD)W/NIRU BILAT Procedure Note: See Note; NOTES: [facility] Imaging Services [address] [place] [id number] SCRN MAMM (CAD)W/NIRU BILAT MR#: [id number] Acct: [id number] Name: KATHRIN BRAVO Rep #: [id number] : 1950 F 71 From: Marcos Wilkins MD PCP: Dr. Bessie De Luna MD Status: REG CLI Study: SCRN MAMM (CAD)W/NIRU BILAT Date of Exam: 07/17 11/06 Exam# [id number] Ordering Dr: Bessie De Luna MD MAMMOGRAPHY - BILATERAL SCREENING 3-D TOMOSYNTHESIS REASON FOR EXAM: Female, 71 years old. Routine screening PERTINENT HISTORY: No significant family history. TECHNIQUE: 2-D mammograms and 3-D Tomosynthesis of the breast (s) were performed. CAD was performed. COMPARISON: 07/19/2021 FINDINGS: The breast composition is heterogeneously dense that can obscure small breast masses. Scattered benign calcifications are seen. No dense spiculated masses or suspicious microcalcifications are identified. No architectural distortion is identified. There is no skin thickening or retraction. There has been no significant change since the prior study. BI/SCRN MAMM (CAD)W/NIRU BILAT IMPRESSION: No mammographic signs of malignancy. Routine yearly mammograms recommended. ASSESSMENT CATEGORY: BIRADS Category 2: Benign. A letter regarding these results will be sent to the patient by the facility within 30 days. FOLLOW UP RECOMMENDATION: Yearly follow up mammogram recommended. (A) Approximately 10% of breast cancers are not detected by mammography. A normal mammogram should not delay biopsy of a clinically suspicious abnormality. Electronically Signed: Ankit Wilkins MD at 15:35 EDT Reading Location ID and State: [facility] / [place] , Service support , CC: Dr. Bessie De Luna MD Supervisor Chemical: Signed Bessie De Luna MD Work Phone: Start: 06-15-2022 Dxa bone density study 1/> sites axial skel Fili Wen MD Work Phone: Start: 05-20-2022 Colonoscopy flx dx w/collj spec when pfrmd Sancho Diaz MD Work Phone: Start: 05-20-2022 Colonoscopy Susan Medina MD Work Phone: Start: 05-18-2022 End: 05-18-2022 Re-Evaluation - PT (1) Comments: See Note; NOTES: [facility] [address] [place] [address]. [address] [place] [address] / REEVALUATION / MEDICARE RECERTIFICATION PHYSICAL THERAPY MR#: [id number] Acct: [id number] Name: KATHRIN BRAVO Rep #: [id number] : 1950 71 From: Marshall Meredith DPT Referring Dr.: Dr. Bessie De Luna MD Status:REG RCR Insurance: [employer] [facility] SEE NOTE SELF PAY INSURANCE Dr. Bessie De Luna MD, It has been my pleasure to treat KATHRIN BRAVO over the last 3 visits for neck pain, shoulder pain. Please see the progress note below for an update on the physical therapy plan of care! Subjective: Pt. reports being able to go on her bike ride with good results. She was doing upwards of 50-60 miles a day with a rest day in between. She reports that her shoulder did very well with these rides. She has been taking tylenol with better tolerance. She was able to work on this AM without issues today. Objective/Function: Pt. is overall doing much better. Pt. reports tolerating biking much better during her trip. She has been sleeping well. I talked to her about adding her strength exercises again. She is to focus on eccentric biceps and continue with the rest of shoulder strengthening exercises. She has 5-/5 of her anterior and posterior deltoid. Serratus anterior 4/5. Plan Plan: Start with mid trap, posterior deltoid strengthening. DN to UT, levator scapulae, mid trap. I am not sure what is the bump at her deltoid region, appears like a lipoma, but unsure. Balance/Gait/Functional tests - Balance/Special Test Scores Quick DASH Score: 15.9075 Goals Goal 1:: LTG: Pt. to be I with HEP. Goal Time Frame: 2-4 Weeks Goal Progress: Progressing Goal 2:: LTG: Pt. to have increased strength of posterior deltoid and mid trap to 5/5. Goal Time Frame: 4-6 Weeks Goal Progress: Progressing Goal 3:: LTG: pt. to be able to cycle up to 30 miles without increase in symptoms. Goal Time Frame: 4-6 Weeks Goal Progress: Goal Met Goal 4:: LTG: Pt. to complete all gym exercises without increase in symptoms. Goal Time Frame: 4-6 Weeks Goal Progress: Progressing Anticipated Interventions Patient/Client Instruction: Educate patient on: Condition, Plan of Care, Risk Factors, Benefits of Fitness Program For the Purpose of:: To foster healthy habits, To improve decision making, To facilitate caregiver knowledge, To improve self management, To prevent re-injury, To improve ability to perform tasks related to life management Therapeutic Exercise to Include: Strength training, Coordination, Postural training, Passive ROM, Active ROM, Scapular Strength/Stabilization For the Purpose of:: To decrease pain, To decrease swelling/inflammation, To increase ROM, To improve nutrient delivery to tissue, To increase oxygenation perfusion, To improve muscle performance and motor function Manual Therapy Techniques to Include: Mobilization, Functional dry needling, Soft tissue mobilization For the Purpose of:: To decrease pain, To decrease swelling/inflammation, To increase ROM, To improve nutrient delivery to tissue Please do not hesitate to contact me at [phone] by phone or if you have questions or concerns regarding this new plan of care! Sincerely, Marshall Meredith DPT <Electronically signed by Marshall Meredith DPT> 05/18/22 1116 CC: Dr. Bessie De Luna MD CLS Signed For Medicare only, by signing this I certify the plan of care. Physicians Signature Date Bessie De Luna MD Work Phone: Start: 04-12-2022 End: 04-12-2022 Inital Evaluation (1) - PT Comments: See Note; NOTES: [facility] [address] [place] [address]. [address] [place] [address] / REHABILITATION SERVICES INITIAL EVALUATION MR#: [id number] Acct: [id number] Name: KATHRIN BRAVO Rep #: [id number] : 1950 71 From: Marshall AKINST Referring Dr.: Dr. Bessie De Luna MD Status: REG [facility] Insurance: [facility] SEE NOTE SELF PAY INSURANCE Patient's Visit Information KATHRIN BRAVO is a 71 year old F referred to Physical Therapy by Dr. Bessie De Luna MD with a diagnosis of . Date of Evaluation: 03/23/22 Physical Therapist: Marshall Meredith DPT - Visit Plan Frequency: 1-2x /Week Duration: 4 Weeks Plan: Start with mid trap, posterior deltoid strengthening. DN to UT, levator scapulae, mid trap. I am not sure what is the bump at her deltoid region, appears like a lipoma, but unsure. - Subjective Pt is here today for her initial evaluation with diagnosis of pain in L shoulder, dorsalgia, and spondylosis of cervical region. Pt. reports having increased pain in the L side of her thoracic spine in upper scapular region. She reports this pain seems to correlate with pain at her lateral deltoid region. Pt. denies mech of injury, but has been bothering her for a few years now. She reports increased pain with biking, lifting and randomly at times. She does reports increased weakness with RTC exercises and with posterior deltoid strengthening. Pt. is sleeping well without issues. PMH: clavicle fracture with ORIF, multiple fractures from biking. Pt. reports having bump on lateral deltoid region, not very painful, but is noticeable. She has had imaging of all of this without issues. Pt. is to follow up with pain management in a few weeks as well. She is hopeful to reduce symptoms in order to get back to all biking and recreational lifting without issues. - Pain L scapular region Pain Intensity (Out of 10): 1 Pain Intensity Range: 0, 5 L lateral deltoid region Pain Intensity (Out of 10): 0 Pain Intensity Range: 0, 4 - Objective POSTURE: Pt. has decent posture of thoracic spine and of cervical spine. Pt. does have slight winging of L scapula, but appears to be improve since previously seeing her. PALPATION: Pt. has tenderness at superior medial scapular boarder. Pt. has pain at levator scapulae region. She also has a bump at lateral deltoid insertion (looks like a lipoma). Pt. does not have much pain to palpation of this. NEURO: Normal sensation and DTR of BUEs. ROM: Pt. has good ROM of B shoulders and cervical spine without increase in symptoms. MMT: Pt. has normal cervical spine strength without increase in symptoms. B shoulders, normal strength without issues, except posterior deltoid 4/5 on L side, mid trap 4/5 increase NW. - Balance/Special Test Scores Quick DASH Score: 25.0000 - Goals Goal 1:: LTG: Pt. to be I with HEP. Goal Time Frame: 2-4 Weeks Goal 2:: LTG: Pt. to have increased strength of posterior deltoid and mid trap to 5/5. Goal Time Frame: 4-6 Weeks Goal 3:: LTG: pt. to be able to cycle up to 30 miles without increase in symptoms. Goal Time Frame: 4-6 Weeks Goal 4:: LTG: Pt. to complete all gym exercises without increase in symptoms. Goal Time Frame: 4-6 Weeks - Rehabilitation Potential Rehabilitation Potential: Good - Anticipated Interventions Patient/Client Instruction: Educate patient on: Condition, Plan of Care, Risk Factors, Benefits of Fitness Program For the Purpose of:: To foster healthy habits, To improve decision making, To facilitate caregiver knowledge, To improve self management, To prevent re-injury, To improve ability to perform tasks related to life management Therapeutic Exercise to Include: Strength training, Coordination, Postural training, Passive ROM, Active ROM, Scapular Strength/Stabilization For the Purpose of:: To decrease pain, To decrease swelling/inflammation, To increase ROM, To improve nutrient delivery to tissue, To increase oxygenation perfusion, To improve muscle performance and motor function Manual Therapy Techniques to Include: Mobilization, Functional dry needling, Soft tissue mobilization For the Purpose of:: To decrease pain, To decrease swelling/inflammation, To increase ROM, To improve nutrient delivery to tissue Thank you for the opportunity to evaluate your patient. For Medicare and Medicare HMO plans, please review the plan of care and approve it. It will need to be FAXED BACK to us at [phone] for Medicare purposes. For Medicare only, by signing this I certify the plan of care. Please let me know if there are questions or concerns regarding this plan of care. Physician Signature: Date: <Electronically signed by Marshall Meredith DPT> 04/12/22 1000 CC: Dr. Bessie De Luna MD CLS Signed Bessie De Luna MD Work Phone: Start: 03-03-2022 Mri any jt upper extremity w/o contrast matrl Jillian Machuca MD Work Phone: Start: 02-14-2022 Radex clavicle complete Jillian Machuca MD Work Phone: Start: 01-26-2022 End: 01-26-2022 Radex spine 1 view specify level Baldomero Singh MD Work Phone: Start: 12-29-2021 End: 12-29-2021 Surgery Visit Report Comments: See Note; NOTES: [facility] [address] [place] [address] OFFICE VISIT Date of Service: 12/29/21 MR#: [id number] Acct: [id number] Name: KATHRIN BRAVO Rep #: [id number] : 1950 Provider: Dr. 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 Required: No Is patient in pain?: No Allergies propoxyphene [From Darvon] Allergy (Mild, Verified 12/29/21 15:05) unknown abaloparatide [From Tymlos] Allergy (Verified 12/29/21 15:05) Other acetaminophen [From Vicodin] Allergy (Verified 12/29/21 15:05) unknown hydrocodone [From Vicodin] Allergy (Verified 12/29/21 15:05) unknown lactose Allergy (Verified 12/29/21 15:05) Diarrhea mesalamine Allergy (Verified 12/29/21 15:05) Rash nickel Allergy (Verified 12/29/21 15:05) Other codeine Adverse Reaction (Intermediate, Verified 12/29/21 15:05) Vomiting epinephrine Adverse Reaction (Verified 12/29/21 15:05) HEART RACES gluten Adverse Reaction (Verified 12/29/21 15:05) Diarrhea soy Adverse Reaction (Verified 12/29/21 15:05) Upset Stomach sulfasalazine Adverse Reaction (Verified 12/29/21 15:05) Other Medications Lactobacillus acidophilus 100 mg PO BID 09/26/17 [History Confirmed 12/29/21] multivitamin 0.5 tab PO BID 09/26/17 [History Confirmed 12/29/21] amlodipine 5 mg tablet 2.5 mg PO BID 08/19/20 [History Confirmed 12/29/21] bilberry 100 mg capsule 100 mg PO DAILY cap 08/19/20 [History Confirmed 12/29/21] cholecalciferol (vitamin D3) 25 mcg PO SUMOWEFR 03/24/21 [History Confirmed 12/29/21] Prolia 60 mg SUBCUT UD 12/19/21 [History Confirmed 12/29/21] biotin 2,000 mcg PO BID 12/19/21 [History Confirmed 12/29/21] calcium 600 mg PO DAILY 12/19/21 [History Confirmed 12/29/21] glucosamine-methylsulfonylmeth 60 ml PO DAILY 12/19/21 [History Confirmed 12/29/21] omega-3 fatty acids 500 mg PO BID 12/19/21 [History Confirmed 12/29/21] berberine-herbal comb no.18 1 cap PO DAILY 12/23/21 [History Confirmed 12/29/21] ibuprofen 400 mg PO Q6H PRN 12/23/21 [History Confirmed 12/29/21] PFSH Medical History (Updated 12/29/21 @ 15:29 by Maday Rothman) Abdominal pain Alcohol use Arthritis Belching Clavicle fracture Colon abnormality Constipation Constipation Dietary restriction Easy bruising Hepatitis History of blunt trauma to abdomen History of colitis History of echocardiogram History of stress test History of stress test HTN (hypertension) IBS (irritable bowel syndrome) Meckel diverticulum Non-smoker Osteopenia RLQ abdominal pain Surgical History History of cholecystectomy History of esophagogastroduodenoscopy (EGD) History of exploratory laparotomy ( 03/2021) History of tonsillectomy and adenoidectomy Hx of colonoscopy Hx of exploratory laparotomy Hx of laparoscopy S/P appendectomy Family History Father Diabetes Hypertension Grandmother Diabetes Hypertension Brother Hypertension Mother COPD (chronic obstructive pulmonary disease) Chronic mental illness Social History household members: spouse housing: house current occupational status: retired Smoking Status: Never smoker alcohol intake: current alcohol intake frequency: a few times a month substance use type: does not use frequency: 3-4 times per week seatbelt use: always do you feel safe at home: Yes HPI HPI HPI: KATHRIN BRAVO, is a 71 F who presents to the office today for ongoing surgical follow-up regarding abdominal pain and extraordinarily tortuous colon. The patient presented to the [facility] ER on December 21, 2021. She had been briefly hospitalized with a diagnosis of small bowel obstruction however on my review I felt that this was much more consistent with severe constipation with a significant amount of stool in the right colon. The contrast material used for the CT scan improved her situation. Her previous past history is pertinent for the following.: March 2021: Exploratory laparoscopy with conversion to mini laparotomy and 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 and release of small bowel obstruction. Incidental appendectomy. Pathology did not demonstrate a Meckel's and there was simply adhesions noted. The patient did improve subsequently but now has had chronic right lower quadrant pain. Subsequent to her recent hospitalization I attempted a colonoscopy on her on December 24, 2021. Patient had an extraordinarily tortuous redundant colon. I was unable to achieve the cecum. Random biopsies were obtained. These were unremarkable. At that same setting I did perform an esophagogastroduodenoscopy. Mild nonspecific inflammation of the duodenum. Chronic gastritis with focal intestinal metaplasia with no evidence of dysplasia. Distal esophagus showed focal acute inflammation consistent with reflux. Mid esophageal biopsies were unremarkable. Medical treatment recommended with plans for follow-up esophagogastric duodenoscopy 3 years secondary to the focal intestinal metaplasia. On December 27, 2021 at the [facility] a single contrast barium enema was performed. This is interesting in that I read requested a double contrast enema. There is significant redundancy of the bowel. Contrast appears to reach the cecum. There appears to be a 3 cm segment of circumferential mild luminal narrowing in the presumed ascending colon just distal to the cecum. The radiologist interprets that the patient has had previous colon surgery which unfortunately is not correct. There was no bowel resection performed at her previous procedure. Assessment and Plan Assessment and Plan (1) History of blunt trauma to abdomen: Status: Acute (2) RLQ abdominal pain: Status: Acute Orders: Referrals: Colon Rectal Surgery Z87.828, R10.31 Plan - Dr. Jacquelyn Tavarez MD: The patient has ongoing right lower quadrant abdominal pain. It does not stop her from riding her bicycle or doing her yoga but it is a persistent problem. Today was a consultative [id number] appointment with the patient and her I have explained to her that her recent hospitalization though diagnosed by the hospitalist as a small bowel obstruction that I feel is likely incorrect. I suspect that there is some primary disease process occurring within the ascending colon. As noted I attempted a colonoscopy but due to the severe tortuosity of the bowel I was not able to achieve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 Controlled (<130/80) [facility] Start: 10-16-2024 Advance Directive Discussion Advance Directive Discussion [facility] Start: 10-16-2024 Medicare [facility] Annual Wellness Visit Medicare Advantage Annual Wellness Visit [facility] Start: 07-17-2024 End: 07-17-2024 Patient encounter procedure [facility] Start: 07-11-2024 End: 07-11-2024 Patient encounter procedure Radiology Comment on above: XR CLAVICLE 2V LEFT 3 MONTH F/U Start: 06-16-2024 COVID-19 VACCINE ( season) COVID-19 VACCINE () [facility] Start: 06-16-2024 COVID-19 VACCINE ( season) COVID-19 VACCINE ( season) [facility] Start: 06-16-2024 Covid-19 Vaccine () Covid-19 Vaccine () [facility] Start: 06-16-2024 Covid-19 Vaccine () Covid-19 Vaccine () [facility] Start: 06-16-2024 Influenza vaccination [facility] Start: 06-10-2024 End: 06-10-2024 Patient encounter procedure [facility] Start: 04-11-2024 End: 04-11-2024 Patient encounter procedure Radiology Comment on above: XR CLAVICLE 2V LEFT POST OP Start: 02-16-2024 DIABETES SCREEN DIABETES SCREEN [facility] Start: 01-12-2024 BP CONTROLLED (<130/80) BP CONTROLLED (<130/80) [facility] in Start: 01-12-2024 End: 04-12-2024 CBC W Auto Differential panel - Blood CBC + DIFF Lab Routine 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, unspecified part of clavicle, subsequent encounter Pre-op exam Expected: 01/12/2024, Expires: 04/12/2024 [facility] Work Phone: Comment on above: Expected: 01/12/2024, Expires: 4 Start: 01-12-2024 End: 04-12-2024 TYPE AND SCREEN,30 DAY TYPE AND SCREEN,30 DAY Blood Bank Routine 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, unspecified part of clavicle, subsequent encounter Pre-op exam Expected: 01/12/2024, Expires: 04/12/2024 [facility] Work Phone: Comment on above: Expected: 01/12/2024, Expires: 4 Start: 01-04-2024 End: 04-04-2024 Basic metabolic 2000 panel - Serum or Plasma BASIC METABOLIC PNL Lab Routine 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, unspecified part of clavicle, subsequent encounter Pre-op exam Expected: 01/04/2024, Expires: 04/04/2024 [facility] Work Phone: Comment on above: Expected: 01/04/2024, Expires: 4 Start: 12-16-2023 Covid-19 Vaccine () Covid-19 Vaccine () [facility] Start: 12-14-2023 End: 12-14-2023 Patient encounter procedure 12/14/2023 11:00 AM EST Clinical Support Encounter [facility] [address] [place] [phone] [facility] Start: 12-12-2023 End: 03-12-2024 Basic metabolic 2000 panel - Serum or Plasma BASIC METABOLIC PNL Lab Routine 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, subsequent encounter Pre-op exam Expected: 12/12/2023, Expires: 03/12/2024 [facility] Work Phone: Comment on above: Expected: 12/12/2023, Expires: 4 Start: 12-12-2023 End: 03-12-2024 CBC W Auto Differential panel - Blood CBC + DIFF Lab Routine 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, subsequent encounter Pre-op exam Expected: 12/12/2023, Expires: 03/12/2024 [facility] Work Phone: Comment on above: Expected: 12/12/2023, Expires: 4 Start: 2023 RSV Vaccine (1 - 1-dose 75+ series) RSV Vaccine (1 - 1-dose 75+ series) [facility] Start: 10-16-2023 Advance Directive Discussion Advance Directive Discussion [facility] Start: 10-16-2023 Behavioral Health Screening Behavioral Health Screening [facility] Start: 10-16-2023 Depression Assessment Depression Assessment [facility] Start: 08-08-2023 Cul bact xcpt urine blood/stool aerobic isol Anaerobic & Aerobic Culture (25793) [facility] Work Phone: Start: 08-08-2023 Procedure Education Eprescribed prescriptions (G8553) [facility] Work Phone: Start: 08-08-2023 Virus tiss cul inoculation cytopathic effect CULTURE, VIRUS GENERAL 8573 (48979) [facility]; [facility] Work Phone: Start: 07-10-2023 Hepatic function panel HEPATIC FUNCTION PANEL (47972) [facility]; [facility] Work Phone: Start: 07-10-2023 Lipid panel LIPID PANEL ([id number]) [facility]; [facility] Work Phone: Start: 07-10-2023 Covid-19 Vaccine ( season) Covid-19 Vaccine ( season) [facility] Start: 07-10-2023 Procedure Education Eprescribed prescriptions (G8553) [facility]; [facility] Work Phone: Start: 06-16-2023 Influenza vaccination [facility] Start: 06-15-2023 Screening for osteoporosis DEXA SCAN DISCUSSION [facility] Start: 06-08-2023 End: 06-08-2023 Patient encounter procedure 06/08/2023 Office Visit Endocrinology, Diabetes & Metabolism Fili Wen MD [address] [place] [address] [address] [place] [address] [facility] Start: 03-23-2023 Lipid panel LIPID PANEL (01819) [facility]; [facility] Work Phone: Start: 02-10-2023 Procedure Education Eprescribed prescriptions (G8553) [facility]; [facility] Work Phone: Start: 02-04-2023 Colonoscopy COLONOSCOPY [facility] Start: 02-04-2023 COLORECTAL CANCER SCREENING COLORECTAL CANCER SCREENING [facility] Start: 01-23-2023 End: 03-25-2023 Basic metabolic 2000 panel - Serum or Plasma BASIC METABOLIC PNL Lab Routine 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, subsequent encounter Pre-op exam Expected: 01/23/2023, Expires: 03/25/2023 [facility] Work Phone: Comment on above: Expected: 01/23/2023, Expires: Start: 01-23-2023 End: 03-25-2023 CBC panel - Blood by Automated count CBC Lab Routine 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, subsequent encounter Pre-op exam Expected: 01/23/2023, Expires: 03/25/2023 [facility] Work Phone: Comment on above: Expected: 01/23/2023, Expires: 3 Start: 01-15-2023 COVID-19 VACCINE (6 - Moderna series) COVID-19 VACCINE (6 - Moderna series) [facility] Start: 01-10-2023 Urine albumin quantitative MICROALBUMIN: CREATININE RATIO (02861) AND (29716) [facility]; [facility] Work Phone: Start: 01-10-2023 Comprehensive metabolic panel METABOLIC PANEL, COMPREHENSIVE (14540) [facility]; [facility] Work Phone: Start: 01-10-2023 Blood count manual cell count each CBC with auto diff (46836) [facility]; [facility] Work Phone: Comment on above: do with [facility] labs Start: 01-10-2023 Procedure Education Eprescribed prescriptions (G8553) [facility]; [facility] Work Phone: Start: 12-05-2022 End: 12-05-2022 Clinical Support Encounter 12/05/2022 Clinical Support Encounter Wellness and Prevention [facility] Start: 10-16-2022 ADVANCE DIRECTIVE DISCUSSION ADVANCE DIRECTIVE DISCUSSION [facility] Start: 10-16-2022 DEPRESSION ASSESSMENT DEPRESSION ASSESSMENT [facility] Start: 09-29-2022 Procedure Education Eprescribed prescriptions (G8553) [facility]; [facility] Work Phone: Start: 09-29-2022 Lipid panel LIPID PANEL (64357) [facility]; [facility] Work Phone: Start: 09-29-2022 Hepatic function panel HEPATIC FUNCTION PANEL (26687) [facility]; [facility] Work Phone: Start: 09-01-2022 Pneumococcal vaccination [facility] Start: 09-01-2022 Pneumococcal Vaccine: 50+ (3 of 3 - PCV20 or PCV21) Pneumococcal Vaccine: 50+ (3 of 3 - PCV20 or PCV21) [facility] Start: 09-01-2022 Pneumococcal Vaccine: 65+ (3 - PPSV23 or PCV20) Pneumococcal Vaccine: 65+ (3 - PPSV23 or PCV20) [facility] Start: 09-01-2022 Pneumococcal Vaccine: 65+ (3 of 3 - PPSV23 or PCV20) Pneumococcal Vaccine: 65+ (3 of 3 - PPSV23 or PCV20) [facility] Start: 08-16-2022 BP CONTROLLED (<130/80) BP CONTROLLED (<130/80) [facility] in Start: 07-05-2022 Lipid panel LIPID PANEL (42759) [facility]; [facility] Work Phone: Start: 07-05-2022 Hepatic function panel HEPATIC FUNCTION PANEL (31342) [facility] Medicine; [facility] Work Phone: Start: 07-05-2022 Lipoprotein-associated phospholipase a2 ASSAY LIPOPROTEIN PLA2 (40990) [facility] Work Phone: Start: 07-05-2022 Procedure Education Eprescribed prescriptions (G8553) [facility] Work Phone: Start: 06-16-2022 Influenza vaccination [facility] Start: 05-29-2022 COVID-19 VACCINE (5 - Booster for Moderna series) COVID-19 VACCINE (5 - Booster for Moderna series) [facility] Start: 02-21-2022 Procedure Education Eprescribed prescriptions (G8553) [facility]; [facility] Work Phone: Start: 02-21-2022 Lipid panel LIPID PANEL (01379) [facility]; [facility] Work Phone: Start: 01-26-2022 End: 01-26-2022 Patient encounter procedure Appointment [facility] Work Phone: Start: 01-10-2022 Provider Instructions for Treatment *Trigger Point Injections [facility]; [facility] Work Phone: Start: 12-29-2021 Patient referral [facility] Work Phone: Start: 12-24-2021 Colonoscopy w/biopsy single/multiple COLONOSCOPY AND BIOPSY [facility] Work Phone: Start: 12-24-2021 Egd transoral biopsy single/multiple EGD BIOPSY SINGLE/MULTIPLE [facility] Work Phone: Start: 12-10-2021 COVID-19 VACCINE (4 - Booster for Moderna series) COVID-19 VACCINE (4 - Booster for Moderna series) [facility] Start: 10-16-2021 ADVANCE DIRECTIVE DISCUSSION ADVANCE DIRECTIVE DISCUSSION [facility] Start: 10-16-2021 DEPRESSION ASSESSMENT DEPRESSION ASSESSMENT [facility] Start: 08-27-2021 Lipid panel LIPID PANEL (07094) [facility]; [facility] Work Phone: Comment on above: in three months (approximately) Start: 07-13-2021 Lipoprotein direct measurement ldl cholesterol LDL CHOLESTEROL-DIRECT (74917) [facility]; [facility] Work Phone: Comment on above: jonny to draw Lp PLA2 Start: 07-09-2021 Patient Education Scabies: mite [facility]; [facility] Work Phone: Start: 07-09-2021 Procedure Education Eprescribed prescriptions (G8553) [facility]; [facility] Work Phone: Start: 07-09-2021 Provider Instructions for Treatment COVID SCREENING FORM [facility]; [facility] Work Phone: Start: 06-11-2021 Provider Instructions for Treatment Follow up if no improvement or if symptoms worsen [facility]; [facility] Work Phone: Start: 05-25-2021 COVID-19 VACCINE (3 - Booster for Moderna series) COVID-19 VACCINE (3 - Booster for Moderna series) [facility] Start: 04-02-2021 Procedure Education Eprescribed prescriptions (G8553) [facility]; [facility] Work Phone: Start: 04-02-2021 Basic metabolic panel calcium total Metabolic Panel, Basic (29888) [facility]; [facility] Work Phone: Comment on above: send labs to Dr. jacquelyn tavarez Start: 04-02-2021 Blood count complete automated CBC (Auto) (08099) [facility]; [facility] Work Phone: Start: 03-24-2021 Procedure Education Eprescribed prescriptions (G8553) [facility]; [facility] Work Phone: Start: 03-24-2021 Provider Instructions for Treatment *Abd Pain Red Flags [facility]; [facility] Work Phone: Start: 03-24-2021 Blood count manual cell count each CBC with auto diff (63169) [facility]; [facility] Work Phone: Start: 03-24-2021 Iaadiadoo influenza 2019 Novel Coronavirus (COVID-19), SHAE (44332) [facility]; [facility] Work Phone: Start: 03-24-2021 Assay of amylase Amylase (74825) [facility]; [facility] Work Phone: Start: 03-24-2021 Assay of lipase Lipase (42265) [facility]; [facility] Work Phone: Start: 03-24-2021 Comprehensive metabolic panel Metabolic Panel, Comprehensive (82014) [facility]; [facility] Work Phone: Start: 10-27-2020 Sedimentation rate rbc non-automated Sed Rate Erythrocyte (33067) [facility]; [facility] Work Phone: Start: 10-27-2020 C-reactive protein C-Reactive Protein (79933) [facility]; [facility] Work Phone: Start: 10-27-2020 CRP [Mass/Vol] C-Reactive Protein (51366) [facility]; [facility] Work Phone: Start: 09-01-2020 Procedure Education Eprescribed prescriptions (G8553) [facility] Work Phone: Start: 07-07-2020 Procedure Education Eprescribed prescriptions (G8553) [facility] Work Phone: Start: 06-16-2020 Influenza vaccination given Sequential Influenza Vaccine (#1) [facility] Start: 06-09-2020 Procedure Education Eprescribed prescriptions (G8553) [facility] Work Phone: Start: 04-23-2020 Procedure Education Eprescribed prescriptions (G8553) [facility] Work Phone: Start: 04-23-2020 Tb cell mediated antign respnse gamma interferon QuantiFERON-TB Gold Plus (QFT-Plus) (84687) [facility] Work Phone: Start: 03-16-2020 Hepatitis c antibody HEPATITIS C ANTIBODY (03880) [facility] Work Phone: Start: 06-06-2019 Shingrix Vaccine (3 of 3) Shingrix Vaccine (3 of 3) [facility] Start: 06-06-2019 Zoster vaccine hzv live for subcutaneous use ZOSTER (SHINGLES) VACCINE (3 of 3) [facility] Start: 09-01-2018 Pneumococcal vaccination [facility] [place] Start: 06-16-2018 Influenza vaccination given SEQUENTIAL INFLUENZA VACCINE (#1) [facility] Start: 02-04-2014 Screening for malignant neoplasm of colon COLORECTAL CANCER SCREENING DISCUSSION [facility] Start: 2013 BONE DENSITY BONE DENSITY [facility] Start: 2013 Bone Density Screening Bone Density Screening [facility] Start: 2013 Fall risk assessment Steadi Fall Risk Assessment [facility] Start: 2013 Pneumococcal vaccination [facility] [place] Start: 2013 Pneumococcal Vaccine: 65+ (1 - PCV) Pneumococcal Vaccine: 65+ (1 - PCV) [facility] Start: 2013 PNEUMOCOCCAL: 65+ (1 - PCV) PNEUMOCOCCAL: 65+ (1 - PCV) [facility] Start: 2013 PNEUMOVAX AGE 65 AND OVER WITH 5YR LOOKBACK (#1) PNEUMOVAX AGE 65 AND OVER WITH 5YR LOOKBACK (#1) [facility] Start: 2013 Screening for osteoporosis Bone Density Screening [facility] Start: 10-16-2012 Mammography [facility] Start: 10-16-2012 Screening for malignant neoplasm of breast Mammogram Screening [facility] Start: 03-13-2010 Hepatitis B vaccination HEP B VACCINE (2 of 2 - CpG 2-dose series) [facility] Start: 2008 RSV Vaccine (1 - 1-dose 60+ series) RSV Vaccine (1 - 1-dose 60+ series) [facility] Start: 1998 Administration of herpes zoster vaccine ZOSTER VACCINES (1 of 2) [facility] Start: 1998 Screening for malignant neoplasm of colon [facility] Start: 1998 SHINGRIX VACCINE (1 of 2) SHINGRIX VACCINE (1 of 2) [facility] Start: 1998 Zoster vaccine hzv live for subcutaneous use ZOSTER (SHINGLES) VACCINE (1 of 2) [facility] Start: 1993 COLOGUARD (FIT-DNA) COLOGUARD (FIT-DNA) [facility] Start: 1993 Colonoscopy COLORECTAL CANCER SCREENING DISCUSSION [facility] Start: [address] COLONOGRAPHY [facility] Start: 1993 FECAL OCCULT BLOOD FECAL OCCULT BLOOD [facility] Start: 1993 Lipid 1996 panel - Serum or Plasma Lipid Screening [facility] Start: 1993 Lipid panel Lipid Screening [facility] Start: 1993 LIPID SCREEN LIPID SCREEN [facility] Start: 1993 Screening for malignant neoplasm of colon [facility] Start: 1993 SIGMOIDOSCOPY SIGMOIDOSCOPY [facility] Start: 1988 Fasting lipid profile LIPID SCREENING [facility] Start: 1988 Lipid panel LIPID SCREENING [facility] Start: 1988 Screening for malignant neoplasm of breast MAMMOGRAM SCREENING DISCUSSION [facility] Start: 1988 Screening mammography MAMMOGRAM SCREENING DISCUSSION [facility] Start: 1969 Screening for malignant neoplasm of cervix CERVICAL CANCER SCREENING DISCUSSION [facility] Start: 1967 Third diphtheria, tetanus and acellular pertussis (DTaP) vaccination TDAP (ADULT) [facility] Start: 1967 Urine microalbumin profile [facility] Start: 1966 ANNUAL PCP TEAM CHRONIC DISEASE VISIT ANNUAL PCP TEAM CHRONIC DISEASE VISIT [facility] Start: 1966 Anxiety Screening Anxiety Screening [facility] Start: 1966 BP CONTROLLED (<130/80) BP CONTROLLED (<130/80) [facility] Start: 1966 Depression Screening Depression Screening [facility] Start: 1966 Hepatitis C antibody, confirmatory test Hepatitis C Screening [facility] Start: 1966 HEPATITIS C SCREENING HEPATITIS C SCREENING [facility] Start: 1966 Hepatitis C screening Hepatitis C Screening [facility] Start: 1966 Tetanus vaccination TETANUS [facility] Start: 1964 COVID-19 Vaccine (1 of 2) COVID-19 Vaccine (1 of 2) [facility] Start: 1960 Adolescent depression screening assessment [facility] Start: 1951 History and physical examination, annual for health maintenance Wellness Visit [facility] Start: 1948 Fall risk assessment Falls Risk Assessment [facility] Start: 1948 Hepatitis C antibody, confirmatory test [facility] Start: 1948 Hepatitis C screening HEPATITIS C VIRUS SCREENING [facility] Start: 1948 Protein mass conc COLONOSCOPY [facility] Start: 1948 Screening for osteoporosis DEXA SCAN [facility] Start: 1948 Screening mammography Mammogram [facility] End: 11-19-2018 12 lead ECG EKG 12-lead STAT Once for 1 Occurrences starting 11/19/2018 until 11/19/2018 [facility] Comment on above: Once for 1 Occurrences starting 11/19/19 19 until 11/19/2018 Albumin [Mass/volume ] in Serum or Plasma ALBUMIN Lab Routine Senile osteoporosis Menopause Hypovitaminosis D Ordered: 07/17/2024 [facility] Comment on above: Ordered: 07/17/2024 End: 01-30-2024 Bone &/joint imaging 3 phase study NM BONE 3 PHASE Radiology Routine 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, unspecified part of clavicle, subsequent encounter 1 Occurrences starting 12/31/2022 until 01/30/2024 [facility] Work Phone: Comment on above: 1 Occurrences starting 12/31/2022 until 01/30/2024 BUN CREA BUN CREA Lab Rou kimmy Senile osteoporosis Menopause Hypovitaminosis D Ordered: 07/17/2024 [facility] Comment on above: Ordered: 07/17/2024 Calcium [Mass/volume ] in Serum or Plasma CALCIUM Lab Routine Senile osteoporosis Menopause Hypovitaminosis D Ordered: 07/17/2024 [facility] Comment on above: Ordered: 07/17/2024 End: 01-26-2023 COLONOSCOPY DIAGNOSTIC COLONOSCOPY DIAGNOSTIC Endoscopy Routine Partial intestinal obstruction, unspecified cause (HCC) 1 Occurrences starting 01/26/2022 until 01/26/2023 [facility] Work Phone: Comment on above: 1 Occurrences starting 01/26/2022 until 01/26/2023 Complete blood count [facility] metabo lic 2000 panel - Serum or Plasma [facility] CORTISOL CORTISOL Lab Rou kimmy Nonspecific abnormal results of endocrine function study Ordered: 04/02/2025 [facility] Comment on above: Ordered: 04/02/2025 CT Shoulder - left Arthrogram CT ARTHROGRAM SHOULDER LEFT Radiology Routine History of removal of retained hardware 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, subsequent encounter 11/23/2023 12:16 PM EST [facility] Work Phone: End: 05-13-2024 CT SHOULDER WO IVCON LEFT CT SHOULDER WO IVCON LEFT Radiology Routine Open fracture of left scapula with delayed healing, unspecified part of scapula, subsequent encounter Closed fracture of left shoulder, sequela 1 Occurrences starting 04/14/2023 until 05/13/2024 [facility] Work Phone: Comment on above: 1 Occurrences starting 04/14/2023 until 05/13/2024 End: 10-16-2023 Ct upper extremity w/o contrast material CT SHOULDER WO IVCON LT Radiology Routine Closed fracture of left shoulder, sequela 1 Occurrences starting 09/16/2022 until 10/16/2023 [facility] Work Phone: Comment on above: 1 Occurrences starting 09/16/2022 until 10/16/2023 End: 12-08-2023 ECG COMPLETE ECG COMPLETE ECG Routine 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, subsequent encounter Pre-op exam 1 Occurrences starting 12/09/2022 until 12/08/2023 [facility] Work Phone: Comment on above: 1 Occurrences starting 12/09/2022 until 12/08/2023 End: 01-12-2024 Echocardiography ECHO Cardiology Routine MVP (mitral valve prolapse) 1 Occurrences starting 01/11/2023 until 01/12/2024 [facility] Work Phone: Comment on above: 1 Occurrences starting 01/11/2023 until 01/12/2024 End: 03-03-2026 EMG(NEURO/NI) EMG(NEURO/NI) EMG Routine Traumatic long thoracic nerve palsy, initial encounter 1 Occurrences starting 03/03/2025 until 03/03/2026 [facility] Work Phone: Comment on above: 1 Occurrences starting 03/03/2025 until 03/03/2026 Erythrocyte sediment ation rate [facility] Folic acid measureme nt, RBC [facility] Magnesium [Mass/volu me] in Serum or Plasma MAGNESIUM Lab Routine Senile osteoporosis Menopause Hypovitaminosis D Ordered: 07/17/2024 [facility] Comment on above: Ordered: 07/17/2024 Magnesium measurement [facility] MR Brain WO and W contrast IV [facility] MR Brain WO and W contrast IV [facility] MR Cervical spine [facility] Patient referral [facility] Work Phone: PTH INTACT PTH INTACT Lab R outine Senile osteoporosis Menopause Hypovitaminosis D Ordered: 07/17/2024 [facility] Comment on above: Ordered: 07/17/2024 REFER FOR ADMIT INTERVIEW REFER FOR ADMIT INTERVIEW Procedures Routine 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, subsequent encounter Pre-op exam Ordered: 12/09/2022 [facility] Work Phone: Comment on above: Ordered: 12/09/2022 REFER FOR ADMIT INTERVIEW REFER FOR ADMIT INTERVIEW Procedures Routine 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, subsequent encounter Pre-op exam Ordered: 11/17/2023 [facility] Work Phone: Comment on above: Ordered: 11/17/2023 REFER FOR ADMIT INTERVIEW REFER FOR ADMIT INTERVIEW Procedures Routine 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, unspecified part of clavicle, subsequent encounter Pre-op exam Ordered: 01/04/2024 [facility] Work Phone: Comment on above: Ordered: 01/04/2024 RF Shoulder - left Arthrogram XR INJ ARTHROGRAM SHOULDER LEFT Radiology Routine History of removal of retained hardware 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, subsequent encounter 11/23/2023 11:58 AM EST [facility] Work Phone: SURGICAL PATHOLOGY [facility] Work Phone: Comment on above: Release Upon Ordering for 1 Occurrences starting 05/20/2022, 1 completed T4 free measurement [facility] Thiamine measurement [facility] Thyroid stimulating hormone measurement [facility] Tilt table test [facility] Vitamin B12 measurement [facility] Vitamin B6 measurement [facility] VITAMIN D (25-HYDROXY,TOTAL) VITAMIN D (25-HYDROXY,TOTAL) Lab Routine Senile osteoporosis Menopause Hypovitaminosis D Ordered: 07/17/2024 [facility] Comment on above: Ordered: 07/17/2024 Vitamin D, 1,25-dihy droxy measurement [facility] End: 01-25-2025 XR Clavicle - left 2 Views XR CLAVICLE 2V LEFT Radiology Routine Pain 1 Occurrences starting 12/27/2023 until 01/25/2025 [facility] Work Phone: Comment on above: 1 Occurrences starting 12/27/2023 until 01/25/2025 XR Clavicle - left 2 Views XR CLAVICLE 2V LEFT Radiology Routine Pain 12/27/2023 2:48 PM EDT [facility] Work Phone: End: 12-30-2024 XR Clavicle - left 2 Views XR CLAVICLE 2V LEFT Radiology Routine 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, unspecified part of clavicle, subsequent encounter Pre-op exam 1 Occurrences starting 01/04/2024 until 12/30/2024 [facility] Work Phone: Comment on above: 1 Occurrences starting 01/04/2024 until 12/30/2024 End: 02-17-2025 XR Clavicle - left 2 Views XR CLAVICLE 2V LEFT Radiology Routine Status post open reduction and internal fixation (ORIF) of fracture 1 Occurrences starting 02/21/2024 until 02/17/2025 [facility] Work Phone: Comment on above: 1 Occurrences starting 02/21/2024 until 02/17/2025 End: 05-11-2025 XR Clavicle - left 2 Views XR CLAVICLE 2V LEFT Radiology Routine Status post open reduction and internal fixation (ORIF) of fracture 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, subsequent encounter 1 Occurrences starting 04/11/2024 until 05/11/2025 [facility] Work Phone: Comment on above: 1 Occurrences starting 04/11/2024 until 05/11/2025 End: 04-28-2024 XR CLAVICLE 2V LEFT XR CLAVICLE 2V LEFT Radiology Routine 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, unspecified part of clavicle, subsequent encounter 1 Occurrences starting 03/30/2023 until 04/28/2024 [facility] Work Phone: Comment on above: 1 Occurrences starting 03/30/2023 until 04/28/2024 End: 03-31-2023 XR CLAVICLE 2V LEFT [facility] Work Phone: Comment on above: 1 Occurrences starting 03/31/2023 until 03/31/2023 End: 06-13-2024 XR CLAVICLE 2V LEFT XR CLAVICLE 2V LEFT Radiology Routine History of removal of retained hardware 1 Occurrences starting 05/15/2023 until 06/13/2024 [facility] Work Phone: Comment on above: 1 Occurrences starting 05/15/2023 until 06/13/2024 XR CLAVICLE 2V LEFT XR CLAVICLE 2V LEFT Radiology Routine History of removal of retained hardware 08/10/2023 3:05 PM EDT [facility] Work Phone: End: 08-16-2024 XR SHOULDER GENERAL 3V OR MORE AP/TRUE AP/OTHER LEFT XR SHOULDER GENERAL 3V OR MORE AP/TRUE AP/OTHER LEFT Radiology Routine 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, 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 1 Occurrences starting 07/18/2023 until 08/16/2024 [facility] Work Phone: Comment on above: 1 Occurrences starting 07/18/2023 until 08/16/2024 XR SHOULDER GENERAL 3V OR MORE AP/TRUE AP/OTHER LEFT XR SHOULDER GENERAL 3V OR MORE AP/TRUE AP/OTHER LEFT Radiology Routine 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 discussed treatment with Mckenna in regards to her left shoulder complaints. Unfortunately, she refractured her clavicle after removal of her hardware and now shows displacement and shortening at the fracture site. The new fracture appears to be through one of the prior screw hole sites and does appear to be medial to the prior nonunion site. Based on these findings we discussed continued nonoperative management versus potential repeat surgical intervention in the form of open reduction internal fixation of the displaced fracture with bone grafting. The risks and benefits of surgery as well as expected postoperative course were discussed at length. Following this discussion and due to the degree of fracture displacement, we would like to proceed with surgery. We signed surgical consent in the office today and will plan for surgery later this week. She agrees with this plan. If any other questions or concerns arise in the interim, She should not hesitate to call. JILLIAN MACHUCA M.D. documented in this encounterTr[facility]03-13-2024 NoteHNO ID: [id number] Author: DENISE ROOT CT Service: ? Author Type: Technologist Type: Progress Notes Filed: 12/27/2023 14:56 Note Text: Radiology Service Progress Note PATIENT NAME: Kathrin Bravo DATE OF SERVICE: December 27, 2023 TIME: 2:55 PM PATIENT IDENTITY VERIFICATION COMPLETED USING TWO (2) IDENTIFIERS: Name and Date of confirmed by patient verbally. FALL SCREENING: Has the patient had 2 falls in the last year or 1 fall with injury or currently using an Ambulatory Assistive Device (Walker, Cane, Wheelchair, Crutches, etc.)? Yes, Patient High Risk for Falls What interventions were put in place to prevent falls during this visit? Offered Assistance with Transfers/Clothing, Instructed Patient to Remain Seated (Not on Exam Table) Until Exam, and Increased Observations by Caregivers PATIENT GENDER DATA: Female. status: : No status: NO. PATIENT RELEVANT IMPLANT DATA REVIEWED: Not Applicable PATIENT PRESENTS WITH AN IMPLANTABLE OR ATTACHED MATTRESS MAKER: No RADIOLOGY DEPARTMENT: General X-ray: Exam(s) Completed: Upper Extremity X-Ray(s): Clavicle, left PERIPHERAL IV DATA: Not applicable SIGNED BY: BHAVIK Chaidez December 27, 2023 2:55 [facility]03-13-2024 History of Present illness Narrative* Denise Root CT - 12/27/2023 2:30 PM EDT Radiology Service Progress Note PATIENT NAME: Kathrin Bravo DATE OF SERVICE: December 27, 2023 TIME: 2:55 PM PATIENT IDENTITY VERIFICATION COMPLETED USING TWO (2) IDENTIFIERS: Name and Date of confirmedby patient verbally. FALL SCREENING: Has the patient had 2 falls in the last year or 1 fall with injury or currently using an Ambulatory Assistive Device (Walker, Cane, Wheelchair, Crutches, etc.)? Yes, Patient High Riskfor Falls What interventions were put in place to prevent falls during this visit? Offered Assistance with Transfers/Clothing, Instructed Patient to Remain Seated (Not on Exam Table) Until Exam, and Increased Observations by Caregivers PATIENT GENDER DATA: Female. status: : No status: NO. PATIENT RELEVANT IMPLANT DATA REVIEWED: Not Applicable PATIENT PRESENTS WITH AN IMPLANTABLE OR ATTACHED MATTRESS MAKER: No RADIOLOGY DEPARTMENT: General X-ray: Exam(s) Completed: Upper Extremity X- Ray(s): Clavicle, left PERIPHERAL IV DATA: Not applicable SIGNED BY: BHAVIK Chaidez December 27, 2023 2:55 PM documented in this encounterTrinity [facility]03-12-2024 History of Present illness Narrative* Susannah Ramirez RN - 12/26/2023 2:17 PM EDT ORTH CARE COORDINATION POST OPERATIVE NURSE VISIT Patient has been identified by name and date of : Yes Patient was seen by the RN under the direction of Sasha Espino. DOS: 12/12/23 Surgery: Left clavicle removal of hardware, left upper arm subcutaneous lipoma excision Patient had X-rays taken today--reviewed by Dr. Machuca. Physical Exam: General: No acute distress, alert and oriented x3 Patient was having 0/10 pain at this time in the left shoulder. She is using tylenol when needed for pain relief. The incisions were covered with at Steri-strips. The Steristrips were removed and the incisions were left uncovered. The deltopectoral and clavicle incision were clean and dry, well approximated. Edema is minimal. Ecchymosis is minimal. The patient was advised that she may shower with no scrubbing, rubbing or applying lotion to the incision. The incision should be patted versus rubbed when drying. Patient given Phase 1 and Phase 2 handouts. Return demonstration done. Patient verbalized understanding Patient was instructed to continue hand, wrist and elbow Range of Motion exercises as previously instructed. Patient was educated on the S & S of infection and told to call the office with any questions or concerns. Patient will follow up with the Nurse in 4 weeks/[address] Machuca will also see that patient at that time. Patient acknowledges information given and has no questions. The patient agrees to call the office if the incision and surrounding skin change or worsen. Social distancing protocols and prevention of the spread of Covid 19 maintained to the within the limits of examination/evaluation/patient instruction. 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 Karan Brink MD December 12, 2023 9:08 AM SIGNATURE: PARISH Grossman PATIENT NAME: Kathrin Bravo DATE: December 12, 2023 TIME: 7:59 AM CSN: [id number] History and physical note* Barb Clark APRN.[facility] - 11/27/2023 12:03 PM EST Images from the original note were not included. HISTORY AND PHYSICAL EXAMINATION SERVICE DATE: 11/27/2023 SERVICE TIME: 12:50 PM PRIMARY CARE PHYSICIAN: Bessie De Luna MD Assessment Patient has the following medical conditions which may affect andreia-operative course: HTN (hypertension) Assessment: controlled on rx Last 14 BP Last 14 Encounter BP Readings: Date: BP: 11/27/2023 118/84 01/23/2023 120/69 01/11/2023 120/72 12/09/2022 143/65 05/20/2022 143/83 08/16/2021 120/73 03/24/2021 126/82 02/15/2021 125/74 01/16/2021 111/62 04/08/2013 102/58 10/05/2012 122/66 VHD (valvular heart disease) Assessment: (trace-1+) MVR, TVR and PVR 12/2022 echo Recent Results (from the past 48259 hour(s)) ECHO Collection Time: 01/13/23 11:22 AM Impression CONCLUSIONS: - Technically difficult exam due to body habitus. - Exam indication: Pre op clearance - The left ventricle is normal in size. Left ventricular systolic function is normal. EF = 55 5% (visual est.) Grade I left ventricular diastolic dysfunction. - The right ventricle is normal in size. Right ventricular systolic function is normal. - The left atrial cavity is mildly dilated. - The patient has not had a prior CC echocardiographic exam for comparison. * * * Final * * * Osteopenia Assessment: on rx IBS (irritable bowel syndrome) Assessment: diet controlled Mixed hyperlipidemia Assessment: c/w statin Benavides Activity Status Index: METS: Climb a flight of stairs or walk up a hill (5.50 METs) DASI Score: 5.5 Patient denies any chest pain or undue shortness of breath with the above physical activity. Clinical Frailty Scale: 3. Well, with treated comorbid disease STOP-Bang Score: Has or is being treated for high blood pressure Patient over 50 years old Denies snoring loudly Denies feeling tired, fatigued, or sleepy during the daytime Has not been observed to stop breathing or choking/gasping during sleep BMI less than or equal to 35 kg/m^2 Does not have a large neck Non-male patient STOP-Bang Score: 2 [id number] Score: Age: >=75 Sex: female CHF history: No Hypertension history: Yes Stroke/TIA/thromboembolism history: No Vascular disease history: No Diabetes history: No [id number] Score: 4 ARISCAT Score: Age: 51-80 Preoperative SpO2: >=96% Respiratory infection in the last month: No Preoperative anemia: No Surgical incision: peripheral Duration of surgery: <2 hrs Emergency procedure: No ARISCAT Score: 3 ANESTHESIA FINDINGS: Intubation History: No history of difficult intubation Significant Anesthesia Considerations: none Airway History: No history of difficult airway I - PHYSICAL EVALUATION AIRWAY Patient intubated: No. Tracheostomy tube not present Mallampati: II. TM distance: >3 FB. Neck ROM: full ROM without neurological symptoms. Mouth opening: adequate. Short neck: no. Additional comments: +clenching at night, taking Flexeril as needed. Thick neck: no [place] present: no Lip Bite Test: I Microretrognathia/Micronagthia/Recessed Chin: No DENTAL Dental findings: teeth intact. Additional comments: +crowns/back. II - ANESTHESIA PLAN Anesthetic Plan: other Beta Jessica Monitoring Plan Post Procedure Analgesic Plan Informed Consent Anesthetic risks, benefits, alternatives, personnel and consent discussed: yes. Patient / Responsible Libertarian agrees to proceed: yes Patient / Surrogate agrees to blood products: blood products not planned Discussed the possibility of lip / dental damage: yes Prepared for Surgery: optimally prepared for surgery. CONSULTS: Patient does not require consults for optimization at this time Planned Anesthetic: other anesthesia choice The Following Tests/Procedures Have Been Initiated: Orders Placed This Encounter MEDICATION, NON-DATABASE Sig: Flax seed oil REASON FOR VISIT: Kathrin Bravo is a 73 year old female who is scheduled for Procedure(s) with comments: REMOVAL HARDWARE SHOULDER, REMOVAL OF LIPOMA (Left) - DOS - 12/12/23 LENGTH OF SURGERY: 1.5 HOURS SURGERY: REMOVAL HARDWARE SHOULDER, REMOVAL OF LIPOMA EQUIPMENT - ACUMED CLAVICLE PLATE ROUTE: PACC, LAB, PLEASE SCHEDULE PRE-OP TESTING IN [place] OR SOMEWHERE CLOSE TO HOME IF POSSIBLE PACC QUESTIONNAIRE DONE--YES 2 WEEK F/U with SUSANNAH on 12/26/23 WITHOUT X-RAY 6 WEEK F/U with SUSANNAH on 01/22/24 WITHOUT X-RAY at the request of @REFPROV2@ for consultation. My final recommendation will be communicated back to the requesting physician by way of shared medical record or letter. 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 Htn (Hypertension) Ibs (Irritable Bowel Syndrome) Closed Displaced Fracture of Shaft of Left Clavicle Shoulder Impingement Syndrome, Left Osteopenia Vhd (Valvular Heart Disease) Mvp (Mitral Valve Prolapse) History of Removal of Retained Hardware Lipoma of Left Upper Extremity Mixed Hyperlipidemia COVID-19 Immunization Status Covid-19 Vaccine (Series Information) Completed 08/17/2023 Outside Immunization: COVID-19, mRNA, LNP-S, PF, 50 mcg/0.5 mL 05/15/2023 Imm Admin: COVID-19 vaccine, age 12+ yr, bivalent (MODERNA) 09/16/2022 Imm Admin: COVID-19 vaccine, age 12+ yr, bivalent (MODERNA) Only the first 3 history entries have been loaded, but more history exists. CHIEF COMPLAINT: Pre-op exam HPI: Kathrin Bravo is a 73 year old seen for PAC due to scheduled above surgery because of retained ortho hardware. 11/09/2023, Dr. Machuca DATE OF SURGERY: January 23, 2023, revision screw fixation of the left clavicle fracture Kathrin returns for follow-up for her shoulder. She continues to note persistent symptoms in the shoulder and presents for further discussion on management. She did not have lasting relief with the cortisone injection at last visit. RADIOGRAPHIC STUDIES: X-rays of the left shoulder and clavicle taken in the office today are available for review and show clavicle plate and screws in unchanged alignment in comparison to prior films. The shortened lateral screw does not appear to contact the coracoid on the available views. CAT scan of the left shoulder from May 08, 2023 is also available for review and shows similar findings. Note is made on the report of the most lateral screw and the clavicle plate causing erosive changes to the coracoid process. I have personally reviewed the images and the lateral screw does notappear to be making bony contact with the coracoid anymore after revision of his screw length. ASSESSMENT: Status post revision screw fixation of left clavicle fracture REVIEW OF SYSTEMS: General: No weight loss, malaise or fevers. Neurological: No history of TIA's, stroke, COMPUTER TRAINER tumor, impaired sensorium, hemiplegia, paraplegia orquadraplegia. No neurological symptoms or problems. Respiratory: No history of current cough or dyspnea, or pneumonia in the past 6 weeks. No history of respiratory/pulmonary symptoms or problems. Cardiovascular: Positive for: hyperlipidemia (on rx), hypertension (on rx) and murmur/valvular heart disease Negative for: anticoagulation therapy, arrhythmia, atrial fibrillation, CAD, chest pain, CHF, congenital heart defect, DVT/PE, recent NM, PVD, open heart surgery and valve surgery. GI: No history of GI symptoms or problems. No history of esophageal varices, recent ascites, or ETOH greater than 2 drinks per day. : No history of dysuria, frequency or incontinence, stones or chronic kidney disease. No difficulty urinating, nocturia > 1 time per night or hematuria. SOAP CHIPPER: Negative for abnormal vaginal bleeding, abnormal vaginal discharge. Endocrine: No history of diabetes. Has not taken steroids within the past 30 days. No history of endocrinological symptoms or problems. Hematology: No history of bleeding or clotting disorder. Patient is not taking anti-coagulation or platelet medications. No history of hematological symptoms or problems. Oncology: No history of CA metastasis, chemo within 30 days, or radiotherapy within 90 days. No history of oncological symptoms or problems. Psych: No history of psychiatric symptoms or problems. Musculoskeletal: See HPI. +osteoporosis, on rx Skin: Negative for lesions, rash and itching. PAST MEDICAL HISTORY Diagnosis Date Arthritis Environmental allergies HTN (hypertension) IBS (irritable bowel syndrome) Osteoporosis PAST SURGICAL HISTORY Procedure Laterality Date COLONOSCOPY 10/16/2006 [facility] LAPS SURG CHOLECYSTECTOMY W/CHOLANGIOGRAPHY 08/17/2012 LASIK 10/16/1997 ORIF CARPOMETACARPAL DISLOC,COMPLX/KELSEA Right 01/14/2011 Thumb ORTHOPEDIC SURGERY HX Left 06/16/2013 Clavicular fracture, plate PAST SURGICAL HISTORY OF 10/02/2014 Removal of plate left clavicle SHOULDER SURGERY HX Left 01/2023 screw shortening FAMILY HISTORY Problem Relation Age of Onset Psychiatry Mother Heart Failure Mother Alcohol/Drug Mother Stroke Father Lipids Father Hypertension Father Emphysema Father Diabetes Father Aneurysm Father Alcohol/Drug Brother Stroke Paternal Grandmother Emphysema Paternal Grandmother Diabetes Paternal Grandfather Social History Tobacco Use Smoking status: Never Smokeless tobacco: Never Vaping Use Vaping Use: Never used Substance Use Topics Alcohol use: No Drug use: No Prior to Admission medications as of 11/27/23 1154 Medication Sig Last Dose Taking MEDICATION, NON-DATABASE Flax seed oil Taking Yes cyclobenzaprine (FLEXERIL) 5 mg tablet Take 5 mg by mouth daily at bedtime. Takes half a tablet Taking Yes amLODIPine (NORVASC) 5 mg tablet Take 2.5 mg by mouth twice daily. Taking Yes denosumab (PROLIA) 60 mg/mL 1 mg. Taking Yes rosuvastatin (CRESTOR) 5 mg tablet Take 5 mg by mouth once daily. Taking Yes BILBERRY ORAL Take 60 mg by mouth once daily. Taking Yes CALCIUM-MAGNESIUM ORAL Take 1 oz by mouth twice daily. Taking Yes multivitamin tablet Take 0.5 tablets by mouth twice daily. Taking Yes MEDICATION, NON-DATABASE Take 2 tablets by mouth once daily. Super EFF (Supplement) Taking Yes glucosamine HCl/chondroitin aguiar (GLUCOSAMINE-CHONDROITIN ORAL) Take 2 oz by mouth once daily. TakingYes acidophilus-pectin, citrus 100 million cell-10 mg cap Take 1 capsule by mouth twice daily. Taking Yes No medication comments found. ALLERGIES Allergen Reactions Epinephrine Contraindication-Medical Surgical increased heart rate Fentanyl Vomiting Patient states she does not do well with narcotics Gluten Flour Diarrhea Hydrocodone-Acetami* GI Upset All narcotics cause GI upset Lactose Diarrhea Nickel Swelling Inflammation Soy GI Upset Sulfasalazine Intolerance Tymlos [Abaloparati* Other: See Comments heart racing Objective PHYSICAL EXAM: General: alert and oriented (x3) and healthy appearance. Pertinent negatives noted - not distressed. Skin: normal color, no rash or lesions. HEENT: EOM intact and pupils equal round. Pertinent negatives noted - no carotid bruit. Cardiovascular: regular rate and rhythm, normal S1 and S2, no rub, murmurs, or gallop. Respiratory: normal breath sounds, no wheezes or crackles. No chest wall deformity or tenderness. Abdomen: soft. Pertinent negatives noted - not tender. Extremities: no deformity, no edema or tenderness, no joint swelling or clubbing. Neurological: normal cognition and motor skills. Gait normal. No weakness or sensory deficit. PAIN ASSESSMENT: Pain Pain Level: 3 Pain Location: Shoulder-Left Description: Burning Duration Amount of Time: 3 Duration Units: Years Frequency: Intermittent (when using) Intervention/Comfort measure: Medication, Exercise VITALS: BP 118/84 Pulse 75 Temp (Src) 98.5 (Temporal) Resp 14 Ht 5' 1.25 (1.56m) Wt 109 lb (49.4kg) SpO2 97% BMI 20.42 kg/(m^2). Diagnostic tests reviewed for today's visit: Lab Value Units Date High Low HB 13.5 g/dL 11/27/2023 15.5 11.5 HCT 40.8 % 11/27/2023 46.0 36.0 WBC 8.97 k/uL 11/27/2023 11.00 3.70 PLT 308 k/uL 11/27/2023 400 150 NA No results within date range. K No results within date range. GLUC No results within date range. BUN No results within date range. CREAT No results within date range. PTSEC No results within date range. INR No results within date range. APTT No results within date range. ALT No results within date range. AST No results within date range. TBILI No results within date range. TSH No results within date range. Lab Value Units Date High Low HCGQT No results within date range. UHCG No results within date range. HCG, BODY* No results within date range. Lab Value Units Date High Low ABORHD No results within date range. ABSCREEN No results within date range. No results found for: HBA1C Recent Results (from the past 8760 hour(s)) ECG COMPLETE Collection Time: 01/11/23 10:44 AM Result Value Ventricular Rate 72 Atrial Rate 72 P-R Interval 178 QRS Duration 82 QT Interval 416 QTC Calculation (Bazett) 455 Calculated P Tyrone 73 Calculated R Tyrone 23 Calculated T Tyrone 54 Impression SINUS RHYTHM WITH FREQUENT PREMATURE VENTRICULAR COMPLEXES OTHERWISE NORMAL ECG Confirmed by JACQUELYN GAO DO ([id number]) on 05/08/2023 4:10:42 PM Recent Results (from the past 58505 hour(s)) ECHO Collection Time: 01/13/23 11:22 AM Impression CONCLUSIONS: - Technically difficult exam due to body habitus. - Exam indication: Pre op clearance - The left ventricle is normal in size. Left ventricular systolic function is normal. EF = 55 5% (visual est.) Grade I left ventricular diastolic dysfunction. - The right ventricle is normal in size. Right ventricular systolic function is normal. - The left atrial cavity is mildly dilated. - The patient has not had a prior CC echocardiographic exam for comparison. * * * Final * * * Instructions Given to Patient: Instructions located in the after visit summary. Patient given verbal and written preop instructions and voices comprehension and compliance. SIGNATURE: Barb Clark APRN.CNP PATIENT NAME: Kathrin Bravo DATE: November 27, 2023 TIME: 12:03 PM PAGER/CONTACT #: documented in this encounterTr[facility]02-12-2024 Instructions* Patient Instructions* Barb Clark APRN.CNP - 11/27/2023 11:53 AM EST PATIENT PREOPERATIVE INSTRUCTIONS No ref. provider found has scheduled you for your procedure at this surgery center: [facility] [phone], [address] [facility], [id number] Please read below carefully for your personalized instructions. Dietary Restrictions: - No solid food after midnight. - You may have 12 ounces of clear liquids (water, clear juices such as apple juice or gatorade, carbonated beverages, clear tea, black coffee, jello) until 2 hours before scheduled arrival at facility. No red/purple coloring and no creamer/sugar Medications: Unless instructed differently below, stay on all of your medications until your surgery. If you start any new medications after today's visit, please contact your surgeon. Pre-Surgery Med Instructions Medication Instructions MEDICATION, NON-DATABASE cyclobenzaprine (FLEXERIL) 5 mg tablet IF needed amLODIPine (NORVASC) 5 mg tablet Take the day of surgery with a small sip of water denosumab (PROLIA) 60 mg/mL Do not take the day of surgery rosuvastatin (CRESTOR) 5 mg tablet Take the day of surgery with a small sip of water BILBERRY ORAL Stop 7 days before surgery CALCIUM-MAGNESIUM ORAL Stop 7 days before surgery multivitamin tablet Stop 7 days before surgery MEDICATION, NON-DATABASE glucosamine HCl/chondroitin aguiar (GLUCOSAMINE-CHONDROITIN ORAL) Stop 7 days before surgery acidophilus-pectin, citrus 100 million cell-10 mg cap Stop 7 days before surgery If you start any new medications after today's visit, please contact the surgeon's office. Blood Thinning Medications: - Stop NSAIDS (Ibuprofen, Advil, Aleve, Motrin, Celebrex, Mobic, etc.) 7 days before surgery, as directed by your surgeon. - Stop Aspirin 7 days before surgery, as directed by your surgeon. - Stop Vitamin E, ALL multi-vitamins, herbals and dietary supplements 7 days before surgery. - You may take Tylenol (Acetaminophen) or any of your pain medications that do not contain aspirin or NSAIDS as needed. Important Reminders: - Candy, mints, and tobacco products are NOT permitted the morning of surgery. - Hearing aids, dentures and glasses may be worn the morning of surgery. - NO jewelry, body piercings, makeup, hairpins or contacts are to be worn the day of surgery. If you develop symptoms such as a fever, cold, or flu, or have other changes to your health within TWO DAYS of scheduled surgery or the morning of surgery, please contact the surgery center above. Personal Belongings: -Please have photo ID and insurance cards. -If you do not have a copy of advance directives on file with us, please bring a copy with you on the day of surgery. - Leave ALL valuables and money at home or with family members. For Outpatient Procedures: - YOU MUST HAVE A RESPONSIBLE RODEO PERFORMER TAKE YOU HOME. A PULVERIZING AND SIFTING OPERATOR OR MACHINE CANDLE MOLDER CANNOT BE MADE A RESPONSIBLE RODEO PERFORMER. - We recommend that a responsible person stays with you overnight to take care of you. - You cannot stay in a hotel alone after outpatient surgery. You will not be permitted to have yoursurgery, if you do not have someone to take care of you. Arrival Time for Surgery: - The Surgery Center or hospital where you are having surgery will call the afternoon before surgery (or Monday for Monday surgery) with a scheduled arrival time. - If you have not heard by 4 pm, please contact the surgery center above. Please be aware that emergency situations arise, which may delay or change your surgical time. If this happens, we will notify you as soon as possible and regret any inconvenience. If you already have an Advance Directive, please fax a copy to [phone] or email to for it to be added to your chart. If you do not have an Advance Directive, you can find the appropriate form and more information at [email or web address]. We recommend that youcomplete the Advance Directive form found on the website and bring it with you the day of your surgery. It can be witnessed and scanned into your chart that day. Barb Clark APRN.AIDAN documented in this encounterTr[facility]02-08-2024 History of Present illness Narrative* Mary Garber RT(R) - 11/23/2023 12:00 PM EST Radiology Service Progress Note PATIENT NAME: Kathrin Bravo DATE OF SERVICE: November 23, 2023 TIME: 12:16 PM PATIENT IDENTITY VERIFICATION COMPLETED USING TWO (2) IDENTIFIERS: Name and Date of confirmedby patient verbally and Name and Date of confirmed by identification band. FALL SCREENING: Has the patient had 2 falls in the last year or 1 fall with injury or currently using an Ambulatory Assistive Device (Walker, Cane, Wheelchair, Crutches, etc.)? No PATIENT GENDER DATA: Female. status: : No status: NO. PATIENT RELEVANT IMPLANT DATA REVIEWED: Yes PATIENT PRESENTS WITH AN IMPLANTABLE OR ATTACHED MATTRESS MAKER: No RADIOLOGY DEPARTMENT: CT; Exam(s) Completed: Upper extremity PERIPHERAL IV DATA: Not applicable SIGNED BY: RT Bianca(R) November 23, 2023 12:16 PM documented in this encounterTr[facility]-08-[facility]24 History of Present illness Narrative* Carolyn Murrell RT(R) - 11/23/2023 11:20 AM EST Radiology Service Progress Note PATIENT NAME: Kathrin Bravo DATE OF SERVICE: November 23, 2023 TIME: 12:00 PM PATIENT IDENTITY VERIFICATION COMPLETED USING TWO (2) IDENTIFIERS: Name and Date of confirmedby patient verbally. FALL SCREENING: Has the patient had 2 falls in the last year or 1 fall with injury or currently using an Ambulatory Assistive Device (Walker, Cane, Wheelchair, Crutches, etc.)? No PATIENT GENDER DATA: Female. 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 NAME: Kathrin Hugo [facility] NO.: [id number] DATE: August 10, 2023 DATE OF SURGERY: January 23, 2023, revision screw fixation of the left clavicle fracture Kathrin returns for follow-up now 6 months out from surgery. Overall she continues to have improvement in her shoulder pain and function. She does still note some symptoms in the shoulder with increased activity and presents for further discussion on management. PHYSICAL EXAMINATION: Physical examination today of the left clavicle shows a well-healed incision.Range of motion testing shows passive external rotation at the side to 60 degrees. Passive and active forward elevation is to nearly 170 degrees, with active internal rotation to the mid thoracic levels. There is 5/5 strength with resisted external rotation at the side and 5/5 strength with resisted Lam maneuver. The left upper extremity is otherwise grossly neurovascularly intact to testing. RADIOGRAPHIC STUDIES: X-rays of the left shoulder and clavicle taken in the office today are available for review and show clavicle plate and screws in unchanged alignment in comparison to prior films. The shortened lateral screw does not appear to contact the coracoid on the available views. CAT scan of the left shoulder from May 08, 2023 is also available for review and shows similar findings. Note is made on the report of the most lateral screw and the clavicle plate causing erosive changes to the coracoid process. I have personally reviewed the images and the lateral screw does notappear to be making bony contact with the coracoid anymore after revision of his screw length. ASSESSMENT: Status post revision screw fixation of left clavicle fracture PLAN: I discussed treatment Ethan in regards to her left shoulder. Overall she has improved since last visit but is still having some residual complaints of pain. She notices this primarily over the shoulder itself along the lateral aspect of the shoulder, as well as in the periscapular region. I do think the symptoms should continue to improve over time and we have discussed that her shoulder may not truly get back to 100% normal function due to the amount of surgeries she has had, but she showsvery good strength and range of motion at this point and is participating in high-level athletic activities. She did inquire about whether the lateral screw in her plate could still be creating some symptoms. This may be possible, but her recent CAT scan and x-rays today do not show any obvious bony contact between the screw and the coracoid. We could consider removal of the screw in the future, but I have discussed with Ethan that I cannot predict for her the amount of improvement she would havefrom this procedure as there does not appear to be bony contact on the most recent imaging. In regards to her current symptoms, we discussed continuing to work on home exercises. We also discussed the possibility of a cortisone injection for the shoulder to determine if this can provide relief for her current residual pain complaints. This would also help localize the source of her pain. She would like to proceed with this. Therefore the left shoulder subacromial space was injected through lateral approach as detailed below. I will see her back in 3 months time for repeat evaluation. She agrees with this plan. Large Joint Arthro/Inj: L subacromial bursa Informed Consent [place] Protocol A moment to CARE was completed. SIGN IN Personnel directly involved with the procedure wore the appropriate PPE. Special Equipment: N/A Patient/Surrogate Stated/Verified: Patient name, Date of , Relevant allergies and Intended procedure TIME OUT Intended patient and procedure match the source document(s). Consent documented and matches the intended procedure. Relevant labs, photos, and/or imaging studies have been reviewed. Correct side/site marked and visible. Medications required for procedure verified. No fire risk assessment and interventions applicable. No implant(s) inserted. 08/10/2023 5:40 PM The procedure site was prepped in the usual sterile fashion. Site: L subacromial bursa Medications: 40 mg triamcinolone acetonide 40 mg/mL Anesthetics: 4 mL lidocaine (PF) 10 mg/mL (1 %) Outcome: Tolerated well, no immediate complications Post-injection instructions were reviewed with the patient and the patient voiced understanding of these instructions. SIGN OUT No instruments, equipment or retained foreign bodies applicable. If any questions or concerns arise, She should not hesitate to call. Jillian Machuca M.D. documented in this encounterTrinity Health [facility]10-26-2023 History of Present illness Narrative* Paz Hall Tech - 08/10/2023 2:45 PM EDT Radiology Service Progress Note PATIENT NAME: Kathrin Bravo DATE OF SERVICE: August 10, 2023 TIME: 3:05 PM PATIENT IDENTITY VERIFICATION COMPLETED USING TWO (2) IDENTIFIERS: Name and Date of confirmedby patient verbally. FALL SCREENING: Has the patient had 2 falls in the last year or 1 fall with injury or currently using an Ambulatory Assistive Device (Walker, Cane, Wheelchair, Crutches, etc.)? No PATIENT GENDER DATA: Female. status: : No status: NO. PATIENT RELEVANT IMPLANT DATA REVIEWED: Not Applicable RADIOLOGY DEPARTMENT: General X-ray: Exam(s) Completed: Upper Extremity X- Ray(s): Shoulder, AP / TRUE AP / AXILLARY right and Clavicle, right PERIPHERAL IV DATA: Not applicable SIGNED BY: Luis Antonio Preston August 10, 2023 3:05 PM documented in this encounterTrinity Health [facility]07-31-2023 NoteHNO ID: [id number] Author: Sasha Espino PA-C Service: ? Author Type: Physician Student Career Development Specialist Type: Progress Notes Filed: 08/11/2023 6:24 AM Note Text: [facility] NOTE Department of Orthopaedics Jillian Machuca M.D. NAME: Kathrin Hugo [facility] NO.: [id number] DATE: May 15, 2023 DATE OF SURGERY: January 23, 2023, revision screw fixation of the left clavicle fracture Kathrin returns for routine followup, now 3 months out from surgery. She is making good progress with shoulder range of motion and function. She has pain with cross body motion. She had difficulty gardening pulling out weeds. States this went on for a period of time and then the pain eased up. She actually feels the pain is in the shoulder. States she was living on Tylenol AND Ibuprofen. She had a massage in March and noted a great deal of pain in her shoulder blade.Denies any distal paresthesias. She has difficulty raising a shirt off overhead. She was able to ride her bike with no great deal of pain PHYSICAL EXAMINATION: Physical examination today of the left clavicle shows a well-healed incision. Range of motion testing shows supine passive external rotation at the side to 60 degrees. Supine passive forward elevation is to 160 degrees. Active forward elevation is to 160 degrees, with active internal rotation to the mid thoracic levels. There is 5/5 strength with resisted external rotation at the side and 5/5 strength with resisted Lam maneuver. The left upper extremity is otherwise grossly neurovascularly intact to testing. RADIOGRAPHIC STUDIES: CAT scan of the left shoulder from May 08, [address] Shoulder - Impression Only CT SHOULDER WO IVCON LEFT Exam End: 05/08/2023 7:52 AM (Final result) Impression: IMPRESSION: No apparent change in the appearance of the clavicle or associated hardware is seen. Supervisor Chemical[facility] Transcribe Date/Time: May 09 2023 10:49A ... 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 Radiographic correlation may be performed, as clinically indicated. ASSESSMENT: Status post revision screw fixation of the left clavicle fracture PLAN: Kathrin is now 3 months out from surgery and progressing well. We will advance into both range of motion and strengthening exercises. She is comfortable continuing this as a home routine. Her lifting restriction at this point in time should be 10 pounds or less on this side. she will otherwise follow-up in 3-months' time for a 6-month postoperative visit. We will obtain new x-rays at that time. She is agreeable with this plan. If any other questions or concerns arise in the interim, She should not hesitate to call. [facility] Miscellaneous Notes* Addendum Note - Sasha Espino PA-C - 05/15/2023 9:36 AM EDTAddended by: SASHA ESPINO on: 05/15/2023 09:36 AM Modules accepted: Orders documented in this encounterTrinity Health [facility]07-31-2023 History of Present illness Narrative* Sasha Espino PA-C - 05/15/2023 8:55 AM EDT [facility] NOTE Department of Orthopaedics Jillian Machuca M.D. NAME: Kathrin Hugo [facility] NO.: [id number] DATE: May 15, 2023 DATE OF SURGERY: 02/22/23, revision screw fixation of the left clavicle fracture Kathrin returns for routine followup, now 3 months out from surgery. She is making good progress with shoulder range of motion and function. She has pain with cross body motion. She had difficulty gardening pulling out weeds. States this went on for a period of time and then the pain eased up. She actually feels the pain is in the shoulder. States she was living on Tylenol & Ibuprofen. She had a massage in March and noted a great deal of pain in her shoulder blade.Denies any distal paresthesias. She has difficulty raising a shirt off overhead. She was able to ride her bike with no great deal of pain PHYSICAL EXAMINATION: Physical examination today of the left clavicle shows a well-healed incision.Range of motion testing shows supine passive external rotation at the side to 60 degrees. Supine passive forward elevation is to 160 degrees. Active forward elevation is to 160 degrees, with active internal rotation to the mid thoracic levels. There is 5/5 strength with resisted external rotation at the side and 5/5 strength with resisted Lam maneuver. The left upper extremity is otherwise grossly neurovascularly intact to testing. RADIOGRAPHIC STUDIES: X-rays of the left shoulder taken in the office today are available for review and show a total shoulder arthroplasty in unchanged alignment in comparison to prior films. Last CT Shoulder - Impression Only CT SHOULDER WO IVCON LEFT Exam End: 05/08/2023 7:52 AM (Final result) Impression: IMPRESSION: No apparent change in the appearance of the clavicle or associated hardware is seen. Supervisor Chemical: OLLIE Transcribe Date/Time: May 09 2023 10:49A ... 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 Radiographic correlation may be performed, as clinically indicated. ASSESSMENT: Status post revision screw fixation of the left clavicle fracture PLAN: Kathrin is now 3 months out from surgery and progressing well. We will advance into both range of motion and strengthening exercises. She is comfortable continuing this as a home routine. Her lifting restriction at this point in time should be 10 pounds or less on this side. she will otherwise follow-up in 3-months' time for a 6-month postoperative visit. We will obtain new x-rays at that time. She is agreeable with this plan. If any other questions or concerns arise in the interim, She should not hesitate to call. Sasha Espino PA-C documented in this encounterTrinity Health [facility]07-14-2023 History of Present illness Narrative* Carmen Sabillon, RT(R) - 04/28/2023 7:30 AM EDT RADIOLOGY SERVICE PROGRESS NOTE SERVICE DATE: 04/28/2023 SERVICE TIME: 9:46 AM PATIENT IDENTITY VERIFICATION COMPLETED USING TWO (2) STANDARD IDENTIFIERS: Name and Date of confirmed by patient verbally FALL SCREENING: Has the patient had 2 falls in the last year or 1 fall with injury or currently using an Ambulatory Assistive Device (Walker, Cane, Wheelchair, Crutches, etc.)? No PATIENT GENDER DATA: .female : No ALLERGIES: Reviewed and unchanged MEDICATIONS REVIEWED: No PATIENT RELEVANT IMPLANT DATA REVIEWED: Not Applicable CREATININE: Creatinine Date Value Ref Range Status 01/11/2023 0.76 0.58 - 0.96 mg/dL Final 02/15/2021 0.76 0.58 - 0.96 mg/dL Final 10/05/2012 0.87 0.70 - 1.40 mg/dL Final Estimated Glomerular Filtration Rate Date Value Ref Range Status 01/11/2023 82 >=60 mL/min/1.73m Final Comment: Estimated Glomerular Filtration Rate (eGFR) is calculated using the 2020 CKD-EPI creatinine equation. This equation utilizes serum creatinine, sex, and age as parameters. The creatinine assay has traceable calibration to isotope dilution- mass spectrometry. Refer to KDIGO guidelines for clinical interpretation. In patients with unstable renal function, e.g. those with acute kidney injury, the eGFRmay not accurately reflect actual GFR. eGFR- Date Value Ref Range Status 02/15/2021 >60 Final P.O.C.T. RESULTS: N/A April 28, [address] PERFORMED: No IV SITE: Ambulatory: A peripheral IV was started in the Left antecubital site with a Angio cath: 24gauge. POST EXAM PIV STATUS: Discontinued PROCEDURE TYPE: NM INJECT: Three Phase Bone Scan. 22.5 mCi Tc99m MDP. No other medications given.. ADMINISTRATION TIME: 07:50 PATIENT DISCHARGED TO: Ambulatory patient, left [place] department area. A Diagnostic radioactive procedure has taken place, with no further precautions necessary other than routine body substance precautions. More information regarding radiation safety can be found usingthis link: [email or web address] SIGNATURE: CARLA Townsend) PATIENT NAME: Kathrin Bravo DATE: April 28, 2023 TIME: 8:00 AM PAGER/CONTACT #: documented in this encounterTrinity Health [facility]06-23-2023 Miscellaneous Notes* Telephone [place] - [place] [facility] [place] 4:36 PM [place]T Left message for patient to schedule appt. for bone scan and to follow up with Dr. Machuca. documented in this encounterTrinity Health [facility] Campus06-15-2023 History of Present illness Narrative* [facility] 2:31 PM EDT xr documented in this encounterTrinity Health System [facility] Campus04-28-2023 History of Present illness Narrative* Susannah Ramirez RN - 02/10/2023 12:23 PM EDT ORTH CARE COORDINATION POST OPERATIVE NURSE VISIT Patient has been identified by name and date of : Yes Patient was seen by the RN under the direction of Dr. Trent May DOS: 01/23/23 Surgery: Revision screw fixation of left clavicle fracture Physical Exam: General: No acute distress, alert and oriented x3 Patient was having 0/10 pain at this time in the left shoulder. She is using tylenol for pain relief. The incision was covered with at Steri-strips. The Steristrips were removed and the incision was left uncovered. The deltopectoral incision is clean and dry, well approximated. Edema is minimal. Ecchymosis is minimal. The patient was advised that she may shower with no scrubbing, rubbing or applying lotion to the incision. The incision should be patted versus rubbed when drying. Patient was also instructed to have active motion of LEFT shoulder at this time as tolerated. Maintain weight limit of 10 pounds or less until the next appointment. Patient was educated on and instructed to begin Phase 1 & 2 stretching exercises at this time. Patient was educated on the S & S of infection and told to call the office with any questions or concerns. Patient will follow up with the Nurse in 4 weeks/[address] Machuca will also see that patient at that time. Patient acknowledges information given and has no questions. The patient agrees to call the office if the incision and surrounding skin change or worsen. Social distancing protocols and prevention of the spread of Covid 19 maintained to the within the limits of examination/evaluation/patient instruction. 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 Staffing Anesthesiologist: Karan Brink MD BORING MACHINE OPERATOR HORIZONTAL: Owen Falcon APRN.BORING MACHINE OPERATOR HORIZONTAL Performed by: [facility] Indications and Patient Condition Indications for airway management: anesthesia Preoxygenated: yes anesthesia circuit Patient position: sniffing Method: asleep Cricoid Pressure: Yes Manual In-Line Stabilization: Yes Difficult Mask: No Final Airway Details Final airway type: endotracheal airway Final Endotracheal Airway: ETT Cuffed: yes Successful intubation technique: direct laryngoscopy Endotracheal tube insertion site: oral Blade: Kita Blade size: #3 ETT size (mm): 7.0 Measured from: lips Measurement (cm): 22 Placement verified by: chest auscultation and capnometry Cormack-Lehane Classification: grade I - full view of glottis Number of attempts at approach: 1 Failed airway: no Unrecognized esophageal intubation: no Airway not difficult Comments I was present for entire procedure. Karan Brink MD January 23, 2023 10:05 AM SIGNATURE: Owen Falcon APRN.BORING MACHINE OPERATOR HORIZONTAL PATIENT NAME: Kathrin Bravo DATE: January 23, 2023 TIME: 8:23 AM CSN: [id number] Miscellaneous Notes* Telephone Encounter - Tamy Mckeon LPN - 01/13/2023 1:59 PM EDT Faxed EKG, labs and PACC H&P to [facility] per patient request for additional upcoming surgery. Tamy Mckeon LPN documented in this encounterTrinity Health [facility] Campus03-29-2023 Instructions* Patient Instructions* Barb Clark APRN.ASSIGNMENT MANAGER - 01/11/2023 10:38 AM EDT PATIENT PREOPERATIVE INSTRUCTIONS Jillian Machuca MD has scheduled you for your procedure at this surgery center: [facility]: [phone] --[id number] [place] [address]. Please read below carefully for your personalized instructions. Dietary Restrictions: - No solid food after midnight. - You may have 12 ounces of clear liquids (water, clear juices such as apple juice or gatorade, carbonated beverages, clear tea, black coffee, jello) until 2 hours before scheduled arrival at facility. No red/purple coloring and no creamer/sugar Medications: Unless instructed differently below, stay on all of your medications until your surgery. Approved medications to take the morning of surgery with a sip of water: amLODIPine (NORVASC), Rosuvastatin If you start any new medications after today's visit, please contact the surgeon's office. Blood Thinning Medications: - Stop NSAIDS (Ibuprofen, Advil, Aleve, Motrin, Celebrex, Mobic, etc.) 7 days before surgery, as directed by your surgeon. - Stop Aspirin 7 days before surgery, as directed by your surgeon. - Stop Vitamin E, ALL multi-vitamins, herbals and dietary supplements 7 days before surgery. - You may take Tylenol (Acetaminophen) or any of your pain medications that do not contain aspirin or NSAIDS as needed. Important Reminders: - Candy, mints, and tobacco products are NOT permitted the morning of surgery. - Hearing aids, dentures and glasses may be worn the morning of surgery. - NO jewelry, body piercings, makeup, hairpins or contacts are to be worn the day of surgery. If you develop symptoms such as a fever, cold, or flu, or have other changes to your health within TWO DAYS of scheduled surgery or the morning of surgery, please contact the surgery center above. Personal Belongings: -Please have photo ID and insurance cards. -If you do not have a copy of advance directives on file with us, please bring a copy with you on the day of surgery. - Leave ALL valuables and money at home or with family members. For Outpatient Procedures: - YOU MUST HAVE A RESPONSIBLE RODEO PERFORMER TAKE YOU HOME. A PULVERIZING AND SIFTING OPERATOR OR MACHINE CANDLE MOLDER CANNOT BE MADE A RESPONSIBLE RODEO PERFORMER. - We recommend that a responsible person stays with you overnight to take care of you. - You cannot stay in a hotel alone after outpatient surgery. You will not be permitted to have yoursurgery, if you do not have someone to take care of you. Arrival Time for Surgery: - The Surgery Center or hospital where you are having surgery will call the afternoon before surgery (or Monday for Monday surgery) with a scheduled arrival time. - If you have not heard by 4 pm, please contact the surgery center above. Please be aware that emergency situations arise, which may delay or change your surgical time. If this happens, we will notify you as soon as possible and regret any inconvenience. If you already have an Advance Directive, please fax a copy to [phone] or email to for it to be added to your chart. If you do not have an Advance Directive, you can find the appropriate form and more information at [email or web address]. We recommend that youcomplete the Advance Directive form found on the website and bring it with you the day of your surgery. It can be witnessed and scanned into your chart that day. Barb Clark APRN.CNP documented in this encounterTrinity Health System [facility] Campus03-29-2023 History and physical note * Barb Clark APRN.CNP - 01/11/2023 10:19 AM EDT Images from the original note were not included. HISTORY AND PHYSICAL EXAMINATION SERVICE DATE: 01/11/2023 SERVICE TIME: 9:07 AM PRIMARY CARE PHYSICIAN: Bessie De Luna MD REASON FOR VISIT: Kathrin Bravo is a 72 year old female who is scheduled for Procedure(s) with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 was done by the physician, nurse and it support technician using the patient's name, date and medical record number. Estimated blood loss was minimal. Many small-mouthed diverticula were found in the sigmoid colon and descending colon. The retroflexed view of the distal rectum and anal verge was normal and showed no anal or rectal abnormalities. Impression: - Perianal skin tags found on perianal exam. - There was significant looping of the colon. - One 3 mm polyp in the rectum, removed with a jumbo cold forceps. Resected and retrieved. - Diverticulosis in the sigmoid colon and in the descending colon. - The distal rectum and anal verge are normal on retroflexion view. Path: FINAL DIAGNOSIS A. Rectal polyp, biopsy: - Hyperplastic polyp. 12/27/2021 Barium Enema IMPRESSION: -Assessment is limited by patient s bowel redundancy as well as history of colonic resection with limits assessment of the normal bowel anatomy. -There is an apparent 3cm segment of circumferential mild luminal narrowing in the presumed descending colon just distal to the cecum 12/24/2021 Colonoscopy (Dr. Tavarez) IMPRESSION: -Hemorrhoids found on perianal exam -Diverticulosis in the sigmoid colon -Redundant colon -Biopsies were taken with a cold forceps form the entire colon for evaluation of microscopic colitis. -Very redundant colon folding after acutely at hepatic flexure consistent with patients c/o pain inthis area 12/19/2021 CT a/p IMPRESSION: There is a distended appearance of the proximal small bowel loops raising concern for ileus versus developing partial small bowel obstruction. There is a linear band of density within the right lowerquadrant that may represent surgical sutures. Recommend correlation with surgical history. -There is a small to moderate amount of fluid within the right greater than left pericolic gutter raising concern for possible inflammatory process in the right lower quadrant. -Otherwise there is moderate to severe constipation s/p 03/25/2021 ([place]) Ex lap with conversion to mini laparotomy and resection of suspected Meckel sadhesive band and release of small bowel obstruction. 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 Appendix, appendectomy: appendix, no pathologic diagnosis PHYSICAL FINDINGS OF NOTE: Patient reported height 5'1 and weight 105 lbs General - Normal, healthy, cooperative, in no acute distress Able to interact verbally by video conference Pulmonary - respiratory effort normal Abdominal - Not performed Motor - patient seen sitting with Normal appearing strength and coordination Anorectal exam - Not Performed Medical Decision Making: Assessment Assessment & Diagnosis: Kathrin Bravo is a 71 year old female with prior LBO symptoms - here for follow up of next steps if any Data Reviewed: Tests & Documents Reviewed/ordered: [facility] of [facility] Review of prior operative reports Review of Pathology Review of Imaging: CT Abdomen, CT Pelvis, Gastrografin enema Review of Procedures / Tests: Colonoscopy I have independently interpreted: CT Abdomen, CT Pelvis I have discussed Kathrin Bravo's treatment plan and/or results with herself. Treatment plan: Long discussion with her and reviewed her colonoscopy findings. I explained the only thing I could offer is a dx lap and possible right colectomy. This may or may not be the origin of her symptoms and my concern was the potential for an intermittent bascule/volvulus. I explained it may not be and continues to have problems. However, the scope was looping and quite long and tortuous and I do thinkall future scopes should be done via general anesthesia with her aversion to narcotics. She will think about things and get back to us. Sancho Diaz MD, FACS, FASCRS salvage diver Engineering Production Worker, Department [place] [address] Risk of morbidity, mortality and/or complications of treatment plan: moderate documented in this encounterTr[facility]-10-2022 Miscellaneous Notes* Telephone Encounter - Romi Kimball Ray - 05/25/2022 3:30 PM EDT The patient was calling to report she was not made aware of the anesthesia used during her colonoscopy as listed on the report. She wants the report updated due to her reaction following the procedure. She will discuss this further at her virtual visit on 06/14. documented in this encounterTrinity [facility]08-05-2022 Miscellaneous Notes* Telephone Encounter - Susan Medina MD - 05/20/2022 7:42 PM EDT Returned patient phone call - she is nauseated and has had a headache since her colonoscopy. She isuncomfortable and has not been able to keep down anything except a single lifesaver candy. She is concerned that this is secondary to an adverse reaction to fentanyl from her colonoscopy. She does not want to try zofran, as it has caused headaches in the past. She is hesitant about compazine's side effects. We discussed going to the ED, but she would prefer to avoid this if possible. Ultimately we decided the best course of action would be to try compazine. I called in a prescription to her local pharmacy. If things do not improve, we discussed that her best option would be to goto the ED Susan Medina MD documented in this encounterTrinity [facility]08-05-2022 Nurse Note* Carolyn Doan RN - 05/20/2022 12:[address] Diaz notified that patient is still experiencing vomitting, but states she wants to go home. Dr. Diaz aware patient vital signs are stable. Dr. Jair Grimes to come to bedside and assess patient. Carolyn Doan RN * Vi Vang RN - 05/20/2022 11:36 AM EDT Pt vomiting, she was offered Zofran, she refused saying that Zofran gives her a headache. Pt agreedto receiving Normal Saline bolus to help with recovery of sedation. Verbal order for Compazine IV obtained from Dr. Diaz, pt refuses Compazine stating I am worried about side effects, most medication makes me sick. Pt made aware that Compazine is an option if shechooses to take it. * Vi Vang RN - 05/20/2022 10:57 AM EDT AMBULATORY PATIENT EDUCATION NOTE TOPIC: GI PROCEDURES: Colonoscopy with or without biopsies based on clinical findings READINESS TO LEARN INSTRUCTION PROVIDED TO: Patient, readness to learn accessed prior to procedure COGNITIVE ABILITY: Alert and oriented PTED MOTIVATION TO LEARN: Interested FAMILY SUPPORT: Moderate - Family present but overwhelmed IPATIENT LEARNS BEST BY: Individual Instruction FACTORS AFFECTING LEARNING: None PHYSICAL LIMITATIONS AFFECTING LEARNING: None LEARNING RESPONSE METHOD OF INSTRUCTION: Individual instruction PATIENT / FAMILY RESPONSE: Verbalizes understanding of: WORSENING CONDITION- Signs and symptoms of aworsening condition that warrant a call to the physician FOLLOW-UP PLAN: Complete - No need for follow-up SUPPLEMENTAL MATERIAL: Procedure Discharge Instructions REFERRAL (RECOMMENDATION): None * Savana Foster RN - 05/20/2022 10:16 AM EDT PRE OP LEARNING ASSESSMENT PROCEDURE/SURGERY: GI PROCEDURES: Colonoscopy READINESS TO LEARN COGNITIVE ABILITY: Alert and oriented MOTIVATION TO LEARN: Interested FAMILY SUPPORT: None - Unavailable/disinterested PATIENT LEARNS BEST BY: Individual Instruction FACTORS AFFECTING LEARNING: None PHYSICAL LIMITATIONS AFFECTING LEARNING: None Electronically Signed By: Savana Foster RN In Department: GASTROENTEROLOGY documented in this encounterTrinity [facility]08-05-2022 History and physical note * Jair Grimes MD - 05/20/2022 10:00 AM EDT PROCEDURAL SEDATION HISTORY AND PHYSICAL EXAM SERVICE DATE: 05/20/2022 SERVICE TIME: 10:08 AM Subjective HPI: This is a 71 year old female who presents for colonoscopy. Possible history of collagenous colitis Change in bowel habits: none Blood in stool: none Unexplained weight loss: none FMH CRC: none Last colonoscopy date: earlier this year, incomplete Findings: no abnormal findings PAST ANESTHESIA HISTORY: No history of adverse event and Prolonged awakening PAST MEDICAL HISTORY Diagnosis Date Arthritis Environmental allergies HTN (hypertension) IBS (irritable bowel syndrome) Osteoporosis PAST SURGICAL HISTORY Procedure Laterality Date COLONOSCOPY 10/16/2006 [facility] LAPS SURG CHOLECYSTECTOMY W/CHOLANGIOGRAPHY 08/17/2012 LASIK 10/16/1997 ORIF CARPOMETACARPAL DISLOC,COMPLX/KELSEA Right 01/14/2011 Thumb ORTHOPEDIC SURGERY HX Left 06/16/2013 Clavicular fracture, plate PAST SURGICAL HISTORY OF 10/02/2014 Removal of plate left clavicle Prior to Admission medications as of 05/20/22 1000 Medication Sig Last Dose Taking baclofen (LIORESAL) 10 mg tablet Take 5 mg by mouth as needed. Gatorade Sports Drink Use as directed for Miralax / Gatorade Bowel Prep Kit teriparatide (FORTEO SUBCUTANEOUS) Inject subcutaneously. aspirin, enteric coated (ECOTRIN LOW STRENGTH) 81 mg EC tablet Take 1 tablet by mouth twice daily for 14 days. BILBERRY ORAL Take 60 mg by mouth once daily. cholecalciferol, vitamin D3, (VITAMIN D3 ORAL) Take 1,000 Units by mouth four times a week. CALCIUM-MAGNESIUM ORAL Take 1 oz by mouth twice daily. multivitamin tablet Take 0.5 tablets by mouth twice daily. amLODIPine (NORVASC) 5 mg tablet Take 2.5 mg by mouth three times daily. cyclobenzaprine (FLEXERIL) 5 mg tablet Take 2.5 mg by mouth three times daily as needed. MEDICATION, NON-DATABASE Take 2 tablets by mouth once daily. Super EFF glucosamine HCl/chondroitin aguiar (GLUCOSAMINE-CHONDROITIN ORAL) Take 2 oz by mouth once daily. DOCOSAHEXANOIC ACID/EPA (FISH OIL ORAL) Take 1,000 mg by mouth twice daily. acidophilus-pectin, citrus (PROBIOTIC ACIDOPHILUS-PECTIN) 100 million cell-10 mg cap Take 1 capsuleby mouth twice daily. ALLERGIES Allergen Reactions Gluten Flour Diarrhea Hydrocodone-Acetami* GI Upset All narcotics cause GI upset Lactose Diarrhea Nickel Swelling Soy GI Upset Sulfasalazine Intolerance Tymlos [Abaloparati* Other: See Comments heart racing Objective PHYSICAL EXAM: The remainder of the physical exam is noncontributory. GENERAL: Alert, no distress, cooperative, No Distress ABDOMEN: Abdomen soft, non-tender, BS normal, No masses or organomegaly AIRWAY: LUNGS: Nonlabored breathing, no audible wheezing CARDIAC: regular rate and rhythm Assessment/Plan ASA Class: Active Problems: * No active hospital problems. * Resolved Problems: * No resolved hospital problems. * Provisional Diagnosis/Treatment Plan: Plan for Colonoscopy, possibly polypectomy, possible biopsy Risk and benefits discussed with patient Consent obtained SIGNATURE: Jair Grimes MD PATIENT NAME: Kathrin Bravo DATE: May 20, 2022 TIME: 10:08 AM documented in this encounterTrinity [facility]08-05-2022 Miscellaneous Notes* Brief Op Note - Jair Grimes MD - 05/20/2022 10:00 AM EDT COLORECTAL SURGERY NOTE Kathrin Bravo [id number] Called to post-procedure area to evaluate Mrs. Bravo. She is having significant nausea and vomiting. She believes it is due to narcotics, as it feels identical to previous episodes post-narcotic. Shehas no abdominal pain. On exam, her abdomen is soft, nontender. She would like to go home. She was advised to present to the nearest ED if symptoms worsen. Adversereaction to fentanyl has been added to her chart. Jair Grimes Colorectal Fellow documented in this encounterTrinity [facility]05-23-2022 History of Present illness Narrative* Jillian Machuca MD - 03/07/2022 7:51 AM EDT [facility] NOTE Department of Orthopaedics Jillian Machuca M.D. NAME: Kathrin Bravo CLINIC NO.: [id number] DATE: March 07, 2022 Ethan returns for follow-up today for her left shoulder. She has undergone her MRI and presents to [facility] the results of the study. PHYSICAL EXAMINATION: Physical examination today of the left shoulder is not significantly changed since last visit. RADIOGRAPHIC STUDIES: MRI of the left shoulder from March 03, 2022 is available for review and shows no significant tearing of the rotator cuff. There is signal change consistent with tendinosis. Thereis mild degenerative change. The lipoma can also be visualized in the subcutaneous tissues. 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 PLAN: I discussed treatment with Ethan in regards to her left shoulder. We reviewed her MRI which does not show any significant tears around the shoulder. She does have some mild degenerative change and tendinosis. 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 Based on these findings we discussed continued nonoperative management. She is scheduled for a visit later this week with pain management to undergo injections for both the shoulder and neck. We discussed how this will help determine where her primary symptoms are coming from. Ethan overall is doing well with her shoulder in terms of regular daily activities and only gets significant symptoms with higher level activities, particularly extended cycling. I do think it is safe to perform theseactivities, but we discussed that they can aggravate the shoulder some from overuse. She does understand this. She will continue with her home exercises. She will follow-up on an as-needed basis. If she does not have significant relief with the injections, we would still consider the CAT scan of her shoulder in the future. She agrees with this plan. If any questions or concerns arise, She should not hesitate to call. Jillian Machuca M.D. documented in this encounterTrinity Health [facility]05-19-2022 History of Present illness Narrative* Mckenna Damon, RT(R) - 03/03/2022 8:00 AM EDT Radiology Service Progress Note PATIENT NAME: Kathrin Bravo DATE OF SERVICE: March 03, 2022 TIME: 8:15 AM PATIENT IDENTITY VERIFICATION COMPLETED USING TWO (2) IDENTIFIERS: Name and Date of confirmedby patient verbally. FALL SCREENING: Has the patient had 2 falls in the last year or 1 fall with injury or currently using an Ambulatory Assistive Device (Walker, Cane, Wheelchair, Crutches, etc.)? No PATIENT GENDER DATA: Female. status: : No status: NO. PATIENT RELEVANT IMPLANT DATA REVIEWED: Yes RADIOLOGY DEPARTMENT: MR; Exam(s) Completed: Upper MSK: Shoulder, left PERIPHERAL IV DATA: Not applicable SIGNED BY: RT Godfrey(R) March 03, 2022 8:15 AM documented in this encounterTrinity Health [facility]05-02-2022 History of Present illness Narrative* Eva Feldman RT(R) - 02/14/2022 12:15 PM EDT Radiology Service Progress Note PATIENT NAME: Kathrin Bravo DATE OF SERVICE: February 14, 2022 TIME: 12:56 PM PATIENT IDENTITY VERIFICATION COMPLETED USING TWO (2) IDENTIFIERS: Name and Date of confirmedby patient verbally. FALL SCREENING: Has the patient had 2 falls in the last year or 1 fall with injury or currently using an Ambulatory Assistive Device (Walker, Cane, Wheelchair, Crutches, etc.)? No PATIENT GENDER DATA: Female. status: : No status: NO. PATIENT RELEVANT IMPLANT DATA REVIEWED: Not Applicable left clavicle PERIPHERAL IV DATA: Not applicable SIGNED BY: RT James(Nicol) February 14, 2022 12:56 PM documented in this encounterTrinity Health [facility]04-13-2022 Instructions* Patient Instructions* Kobe Mcnamara RN - 01/26/2022 4:24 PM EDT Images from the original note were not included. Bowel Preparation Instructions for: Miralax-Gatorade Preparations IF YOU DO NOT FOLLOW THESE DIRECTIONS, YOUR COLONOSCOPY WILL BE CANCELLED. Workman Instructions: Your bowel must be empty so that your doctor can clearly view your colon. Follow all of the instructions in this handout EXACTLY as they are written. Do NOT eat any solid food the ENTIRE day before your colonoscopy. Buy your bowel preparation at least 5 days before your colonoscopy. Four (4) Dulcolax laxative tablets containing 5mg of bisacodyl each (NOT Dulcolax stool softener) One (1) 8.3oz. bottle Miralax (238 grams) or generic equivalent 2 x 32oz. Bottles of Gatorade (NOT RED) Diabetic Patients: Use G2 (Gatorade 2) TRANSPORTATION on the Day of Your Exam A responsible adult MUST be present with you at Check In prior to your colonoscopy and REMAIN in the endoscopy area until you are discharged. You are NOT ALLOWED to drive, take a taxi or bus, or leave the Endoscopy Center ALONE. If you do not have a responsible livery car driver (family member or friend) withyou to take you home, your exam cannot be done with sedation and will be cancelled. Please bring a list of all of your current medications, including any Myhd-mdf-Xesquuf medications with you. Medications If you take insulin, diabetic medications or blood thinners such as Coumadin (warfarin), Plavix (clopidogrel), Ticlid (ticlopidine hydrochloride), Agrylin (anagrelide), Xarelto (Rivaroxaban), Pradaxa(Dabigatran), Eliquis (Apixaban), and Effient (Prasugrel). You MUST call the doctors who orders those medicines for instructions on altering the dosage before your colonoscopy. All other medications should be taken the day of the exam with a sip of water including ASPIRIN. Five (5) Days Before Your Colonoscopy Do NOT take medicines that stop diarrhea - such as Imodium, Kaopectate, or Pepto Bismol. Do NOT take fiber supplements - such as Metamucil, Citrucel, or Perdiem. Do NOT take products that contain iron - such as multi-vitamins (the label lists what is in the products). Three (3) Days Before Your Colonoscopy Do NOT eat high-fiber foods - such as popcorn, beans, seeds (flax, sunflower, quinoa), multigrain bread, nuts, salad/vegetables, or fresh and dried fruit. 2 Bowel Preparation Instructions for: Miralax-Gatorade Preparations One (1) Day Before Your Colonoscopy Only drink clear liquids the ENTIRE DAY before your colonoscopy. Do NOT eat any solid foods. Drink at least 8 ounces of clear liquids every hour after waking up. The clear liquids you can drink include: Clear Liquid (NO RED LIQUIDS) DO NOT DRINK Gatorade, Pedialyte or Powerade Clear broth or bouillon Coffee or tea (no milk or non-dairy creamer) Carbonated and non-carbonated soft drinks Radhames-Aid or other fruit flavored drinks Strained fruit juices (no pulp) Jell-O, popsicles, hard candy Water Alcohol Milk or non-dairy creamers Noodles or vegetables in soup Juice with pulp Liquid you cannot see through Mix 1/2 of Miralax bottle (119 grams) in each 32 ounces of Gatorade bottle until dissolved. Keep cool in the refrigerator. DO NOT ADD ICE. The bowel preparation solution will be consumed in two parts. Part 1 5:00 PM - Evening before your colonoscopy Take 4 Dulcolax tablets. 6 PM - Evening before your colonoscopy Drink 32 oz. of the mixed solution. Drink an 8 oz. glass of bowel preparation every 15 minutes for a total of 4 glasses. Fifteen (15) minutes later, drink an 8 oz. glass of of clear liquids every 15 minutes for a total of 2 glasses. You may continue to drink clear liquids till midnight. Part 2 On the day of your colonoscopy you may drink clear liquids up to (three) 3 hours prior to procedure. 4 1/2 hours before your colonoscopy Take another 32 oz. bottle of mixed solution. Drink an 8 oz. glass of bowel prep every 15 minutes for a total of 4 glasses. Fifteen (15) minutes later, drink an 8 oz. glass of clear liquids every 15 minutes for a total of 2glasses. You may continue to drink clear liquids up to (three) 3 hours before your exam. 3 09/2019 documented in this encounterTrinity [facility]04-13-2022 Instructions* Instruction Description Start Date Completed [facility] Work Phone: [phone] History and physical note* Sancho Diaz MD - 01/25/2022 11:00 AM EDT COLORECTAL SURGERY New Patient Visit January 24, 2022 Chief Complaint: Right upper quadrant pain, tortuous colon History of Present Illness: Kathrin Bravo is a 71 year old year old female with a history of bowel obstruction that occurred per her 2x the the most recent being this one. She states she stopped eating a supplement and now feels like everything is back to normal and she is having normal BM. Has some degree of chronic right - sided abdominal pain that she was seeing orthopedics since a pelvic fracture, but none recently. TO DATE 12/29/[address] Tavarez -Ongoing right lower abdominal pain. -Explained to her that her recent hospitalization though diagnosed by the hospitalist as a small bowel obstruction that I feel is likely incorrect. -I suspect that there is some primary disease process occurring within the ascending colon -referral to tertiary colorectal or GI department for likely repeat attempt at colonoscopy for definitive diagnosis 12/27/2021 Barium Enema IMPRESSION: -Assessment is limited by patient s bowel redundancy as well as history of colonic resection with limits assessment of the normal bowel anatomy. -There is an apparent 3cm segment of circumferential mild luminal narrowing in the presumed descending colon just distal to the cecum 12/24/2021 Colonoscopy (Dr. Tavarez) IMPRESSION: -Hemorrhoids found on perianal exam -Diverticulosis in the sigmoid colon -Redundant colon -Biopsies were taken with a cold forceps form the entire colon for evaluation of microscopic colitis. -Very redundant colon folding after acutely at hepatic flexure consistent with patients c/o pain inthis area 12/19/2021 CT a/p IMPRESSION: There is a distended appearance of the proximal small bowel loops raising concern for ileus versus developing partial small bowel obstruction. There is a linear band of density within the right lowerquadrant that may represent surgical sutures. Recommend correlation with surgical history. -There is a small to moderate amount of fluid within the right greater than left pericolic gutter raising concern for possible inflammatory process in the right lower quadrant. -Otherwise there is moderate to severe constipation s/p 03/25/2021 (J[place]ul) Ex lap with conversion to mini laparotomy and resection of suspected Meckel sadhesive band and release of small bowel obstruction. Incidental appendectomy PATHOLOGY: A. Meckel s/ adhesions- pieces of fibroadipose and fibroconnective tissue with chronic inflammationand reactive changes consistent with adhesion. B. Appendix, appendectomy: appendix, no pathologic diagnosis PAST MEDICAL HISTORY Diagnosis Date Environmental allergies HTN (hypertension) IBS (irritable bowel syndrome) Osteoporosis PAST SURGICAL HISTORY Procedure Laterality Date COLONOSCOPY 10/16/2006 [facility] NADIA CHOLECYSTECT/CHOLANGIOGRAPHY 08/17/2012 LASIK 10/16/1997 ORIF CARPOMETACARPAL DISLOC,COMPLX/KELSEA Right 01/14/2011 Thumb ORTHOPEDIC SURGERY HX Left 06/16/2013 Clavicular fracture, plate PAST SURGICAL HISTORY OF 10/02/2014 Removal of plate left clavicle Current Outpatient Medications Medication Sig Dispense Refill teriparatide (FORTEO SUBCUTANEOUS) Inject subcutaneously. aspirin, enteric coated (ECOTRIN LOW STRENGTH) 81 mg EC tablet Take 1 tablet by mouth twice daily for 14 days. 28 tablet 0 BILBERRY ORAL Take 60 mg by mouth once daily. cholecalciferol, vitamin D3, (VITAMIN D3 ORAL) Take 1,000 Units by mouth four times a week. CALCIUM-MAGNESIUM ORAL Take 1 oz by mouth twice daily. multivitamin tablet Take 0.5 tablets by mouth twice daily. amLODIPine (NORVASC) 5 mg tablet Take 2.5 mg by mouth three times daily. cyclobenzaprine (FLEXERIL) 5 mg tablet Take 2.5 mg by mouth three times daily as needed. MEDICATION, NON-DATABASE Take 2 tablets by mouth once daily. Super EFF glucosamine HCl/chondroitin aguiar (GLUCOSAMINE-CHONDROITIN ORAL) Take 2 oz by mouth once daily. DOCOSAHEXANOIC ACID/EPA (FISH OIL ORAL) Take 1,000 mg by mouth twice daily. acidophilus-pectin, citrus (PROBIOTIC ACIDOPHILUS-PECTIN) 100 million cell-10 mg cap Take 1 capsuleby mouth twice daily. 0 No current facility-administered medications for this visit. ALLERGIES Allergen Reactions Gluten Flour Diarrhea Hydrocodone-Acetami* GI Upset All narcotics cause GI upset Lactose Diarrhea Nickel Swelling Soy GI Upset Sulfasalazine Intolerance Tymlos [Abaloparati* Other: See Comments heart racing Review of Systems / PACC screen: Do you have difficulty climbing a full flight of stairs without feeling short of breath? no Do you require oxygen for your breathing or have your gone to an emergency department because of breathing problems? no Are you on dialysis or have you been told that your kidneys do not work well as they should? no Do have an implanted cardiac device (pacemaker, defibrillator etc.) that has not been checked in the last 6 months? no Have you had an organ transplant? no Have you been told that you had excessive bleeding during surgical procedures or do you take blood thinning medications other than aspirin? no Have you ever had a heart attack, heart stents/surgery, valve problems, or other heart problems? no Have you had a stroke, seizures, or unexplained loss of consciousness? no Do you have a neurologic condition like Parkinson's disease or multiple sclerosis? no Have you or a blood relative had a life-threatening reaction to anesthesia? no Do you have cirrhosis of the liver or other liver disease? no Have you had a blood clot within the past year? no Do you take insulin or other injections for diabetes? no Do you have sleep apnea or have you been told you may have sleep apnea? no Do you have other implanted devices (deep brain stimulator, spinal cord stimulator, etc.)? no Physical Exam: There were no vitals taken for this visit. General Appearance: Well appearing, alert, in no acute distress, well-hydrated, well nourished. 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 Could proceed with DX lap and even right colectomy. ALso with a suggestion of a narrowing and had an incomplete colonoscopy. Data Reviewed: Tests & Documents Reviewed/ordered: Review of Imaging: CT Abdomen, CT Pelvis Review of Procedures / Tests: Colonoscopy I have independently interpreted: CT Abdomen, CT Pelvis I have discussed Kathrin Bravo's treatment plan and/or results with her. Treatment plan: She would like to proceed with a colonoscopy first and I will attempt to see if I can get around her colon and look for any other lesions. Pending this, still may need to have an operation, but she would like to avoid if at all possible. Procedure: colonoscopy The risks, benefits and anticipated outcomes of the procedure, the risks and benefits of the alternatives to the procedure, and the roles and tasks of the personnel to be involved, were discussed with the patient, and the patient consents to the procedure and agrees to proceed. Sancho Diaz MD, FACS, FASCRS salvage diver [employer], Department [place] [address] Colorectal Surgery Risk of morbidity, mortality and/or complications of treatment plan: moderate [facility] History of Present illness Narrative* Samy Trinh Jr., Tech - 05/17/2021 12:30 PM EDT Radiology Service Progress Note PATIENT NAME: Kathrin Bravo DATE OF SERVICE: May 17, 2021 TIME: 12:51 PM PATIENT IDENTITY VERIFICATION COMPLETED USING TWO (2) IDENTIFIERS: Name and Date of confirmedby patient verbally. FALL SCREENING: Has the patient had 2 falls in the last year or 1 fall with injury or currently using an Ambulatory Assistive Device (Walker, Cane, Wheelchair, Crutches, etc.)? No PATIENT GENDER DATA: Female. status: : No status: NO. PATIENT RELEVANT IMPLANT DATA REVIEWED: Not Applicable RADIOLOGY DEPARTMENT: General X-ray: Exam(s) Completed: Upper Extremity X- Ray(s): Clavicle, left PERIPHERAL IV DATA: Not applicable SIGNED BY: Luis Antonio Lowery Jr May 17, 2021 12:51 PM [facility] History of Present illness Narrative* Samy Trinh Jr., Tech - 04/05/2021 1:30 PM EDT Radiology Service Progress Note PATIENT NAME: Kathrin Bravo DATE OF SERVICE: April 05, 2021 TIME: 1:33 PM PATIENT IDENTITY VERIFICATION COMPLETED USING TWO (2) IDENTIFIERS: Name and Date of confirmedby patient verbally. FALL SCREENING: Has the patient had 2 falls in the last year or 1 fall with injury or currently using an Ambulatory Assistive Device (Walker, Cane, Wheelchair, Crutches, etc.)? No PATIENT GENDER DATA: Female. status: : No status: NO. PATIENT RELEVANT IMPLANT DATA REVIEWED: Not Applicable RADIOLOGY DEPARTMENT: General X-ray: Exam(s) Completed: Upper Extremity X- Ray(s): Clavicle, left PERIPHERAL IV DATA: Not applicable SIGNED BY: Luis Antonio Lowery Jr April 05, 2021 1:33 PM [facility] History of Past illness Narrative* Problem Noted Date Resolved Date Lymphedema, not elsewhere classified 07/24/2015 02/15/2021 Cholecystitis with cholelithiasis 07/31/2012 02/15/2021 documented as of this encounter (statuses as of 01/25/2022) [facility] of [facility] illness Narrative* Problem Noted Date Resolved Date Lymphedema, not elsewhere classified 07/24/2015 02/15/2021 Cholecystitis with cholelithiasis 07/31/2012 02/15/2021 documented as of this encounter (statuses as of 01/26/2022) [facility] of [facility] illness Narrative* Problem Noted Date Resolved Date Lymphedema, not elsewhere classified 07/24/2015 02/15/2021 Cholecystitis with cholelithiasis 07/31/2012 02/15/2021 documented as of this encounter (statuses as of 03/04/2022) [facility] of [facility] Narrative* Problem Noted Date Resolved Date Lymphedema, not elsewhere classified 07/24/2015 02/15/2021 Cholecystitis with cholelithiasis 07/31/2012 02/15/2021 documented as of this encounter (statuses as of 03/07/2022) [facility] of [facility] illness Narrative* Problem Noted Date Resolved Date Lymphedema, not elsewhere classified 07/24/2015 02/15/2021 Cholecystitis with cholelithiasis 07/31/2012 02/15/2021 documented as of this encounter (statuses as of 05/21/2022) [facility] of [facility] illness Narrative* Problem Noted Date Resolved Date Lymphedema, not elsewhere classified 07/24/2015 02/15/2021 Cholecystitis with cholelithiasis 07/31/2012 02/15/2021 documented as of this encounter (statuses as of 05/21/2022) [facility] Narrative* Problem Noted Date Resolved Date Lymphedema, not elsewhere classified 07/24/2015 02/15/2021 Cholecystitis with cholelithiasis 07/31/2012 02/15/2021 documented as of this encounter (statuses as of 05/27/2022) [facility] Narrative* Problem Noted Date Resolved Date Lymphedema, not elsewhere classified 07/24/2015 02/15/2021 Cholecystitis with cholelithiasis 07/31/2012 02/15/2021 documented as of this encounter (statuses as of 06/14/2022) [facility] of [facility] Narrative* Problem Noted Date Resolved Date Lymphedema, not elsewhere classified 07/24/2015 02/15/2021 Cholecystitis with cholelithiasis 07/31/2012 02/15/2021 documented as of this encounter (statuses as of 09/16/2022) [facility] Narrative* Problem Noted Date Resolved Date Lymphedema, not elsewhere classified 07/24/2015 02/15/2021 Cholecystitis with cholelithiasis 07/31/2012 02/15/2021 documented as of this encounter (statuses as of 10/19/2022) [facility] Narrative* Problem Noted Date Resolved Date Lymphedema, not elsewhere classified 07/24/2015 02/15/2021 Cholecystitis with cholelithiasis 07/31/2012 02/15/2021 documented as of this encounter (statuses as of 11/11/2022) [facility] Narrative* Problem Noted Date Resolved Date Lymphedema, not elsewhere classified 07/24/2015 02/15/2021 Cholecystitis with cholelithiasis 07/31/2012 02/15/2021 documented as of this encounter (statuses as of 12/09/2022) [facility] Narrative* Problem Noted Date Resolved Date Lymphedema, not elsewhere classified 07/24/2015 02/15/2021 Cholecystitis with cholelithiasis 07/31/2012 02/15/2021 documented as of this encounter (statuses as of 12/31/2022) [facility] Narrative* Problem Noted Date Resolved Date Lymphedema, not elsewhere classified 07/24/2015 02/15/2021 Cholecystitis with cholelithiasis 07/31/2012 02/15/2021 documented as of this encounter (statuses as of 01/12/2023) [facility] Narrative* Problem Noted Date Resolved Date Lymphedema, not elsewhere classified 07/24/2015 02/15/2021 Cholecystitis with cholelithiasis 07/31/2012 02/15/2021 documented as of this encounter (statuses as of 01/13/2023) [facility] Narrative* Problem Noted Date Resolved Date Lymphedema, not elsewhere classified 07/24/2015 02/15/2021 Cholecystitis with cholelithiasis 07/31/2012 02/15/2021 documented as of this encounter (statuses as of 02/10/2023) [facility] Narrative* Problem Noted Date Resolved Date Lymphedema, not elsewhere classified 07/24/2015 02/15/2021 Cholecystitis with cholelithiasis 07/31/2012 02/15/2021 documented as of this encounter (statuses as of 03/31/2023) [facility] Narrative* Problem Noted Date Resolved Date Lymphedema, not elsewhere classified 07/24/2015 02/15/2021 Cholecystitis with cholelithiasis 07/31/2012 02/15/2021 documented as of this encounter (statuses as of 04/01/2023) [facility] Narrative* Problem Noted Date Resolved Date Lymphedema, not elsewhere classified 07/24/2015 02/15/2021 Cholecystitis with cholelithiasis 07/31/2012 02/15/2021 documented as of this encounter (statuses as of 04/08/2023) [facility] Narrative* Problem Noted Date Resolved Date Lymphedema, not elsewhere classified 07/24/2015 02/15/2021 Cholecystitis with cholelithiasis 07/31/2012 02/15/2021 documented as of this encounter (statuses as of 04/14/2023) [facility]ative* Problem Noted Date Diagnosed Date Resolved Date Lymphedema, not elsewhere classified 07/24/2015 02/15/2021 Cholecystitis with cholelithiasis 07/31/2012 02/15/2021 documented as of this encounter (statuses as of 05/15/2023) [facility]* Problem Noted Date Diagnosed Date Resolved Date Lymphedema, not elsewhere classified 07/24/2015 02/15/2021 Cholecystitis with cholelithiasis 07/31/2012 02/15/2021 documented as of this encounter (statuses as of 07/19/2023) [facility]* Problem Noted Date Diagnosed Date Resolved Date Lymphedema, not elsewhere classified 07/24/2015 02/15/2021 Cholecystitis with cholelithiasis 07/31/2012 02/15/2021 documented as of this encounter (statuses as of 08/11/2023) [facility] Narrative* Problem Noted Date Diagnosed Date Resolved Date Lymphedema, not elsewhere classified 07/24/2015 02/15/2021 Cholecystitis with cholelithiasis 07/31/2012 02/15/2021 documented as of this encounter (statuses as of 08/11/2023) [facility] Narrative* Problem Noted Date Diagnosed Date Resolved Date Lymphedema, not elsewhere classified 07/24/2015 02/15/2021 Cholecystitis with cholelithiasis 07/31/2012 02/15/2021 documented as of this encounter (statuses as of 08/18/2023) [facility]arrative* Problem Noted Date Diagnosed Date Resolved Date Lymphedema, not elsewhere classified 07/24/2015 02/15/2021 Cholecystitis with cholelithiasis 07/31/2012 02/15/2021 documented as of this encounter (statuses as of 08/18/2023) [facility]arrative* Problem Noted Date Diagnosed Date Resolved Date Lymphedema, not elsewhere classified 07/24/2015 02/15/2021 Cholecystitis with cholelithiasis 07/31/2012 02/15/2021 documented as of this encounter (statuses as of 11/17/2023) [facility]ative* Problem Noted Date Diagnosed Date Resolved Date Lymphedema, not elsewhere classified 07/24/2015 02/15/2021 Cholecystitis with cholelithiasis 07/31/2012 02/15/2021 documented as of this encounter (statuses as of 11/24/2023) [facility] Narrative* Problem Noted Date Diagnosed Date Resolved Date Lymphedema, not elsewhere classified 07/24/2015 02/15/2021 Cholecystitis with cholelithiasis 07/31/2012 02/15/2021 documented as of this encounter (statuses as of 11/24/2023) [facility]arrative* Problem Noted Date Diagnosed Date Resolved Date Lymphedema, not elsewhere classified 07/24/2015 02/15/2021 Cholecystitis with cholelithiasis 07/31/2012 02/15/2021 documented as of this encounter (statuses as of 11/27/2023) [facility] Narrative* Problem Noted Date Diagnosed Date Resolved Date Lymphedema, not elsewhere classified 07/24/2015 02/15/2021 Cholecystitis with cholelithiasis 07/31/2012 02/15/2021 documented as of this encounter (statuses as of 12/27/2023) [facility]ative* Problem Noted Date Diagnosed Date Resolved Date Lymphedema, not elsewhere classified 07/24/2015 02/15/2021 Cholecystitis with cholelithiasis 07/31/2012 02/15/2021 documented as of this encounter (statuses as of 12/27/2023) [facility]arrative* Problem Noted Date Diagnosed Date Resolved Date Lymphedema, not elsewhere classified 07/24/2015 02/15/2021 Cholecystitis with cholelithiasis 07/31/2012 02/15/2021 documented as of this encounter (statuses as of 12/28/2023) [facility]arrative* Problem Noted Date Diagnosed Date Resolved Date Lymphedema, not elsewhere classified 07/24/2015 02/15/2021 Cholecystitis with cholelithiasis 07/31/2012 02/15/2021 documented as of this encounter (statuses as of 01/05/2024) [facility]arrative* Problem Noted Date Diagnosed Date Resolved Date Lymphedema, not elsewhere classified 07/24/2015 02/15/2021 Cholecystitis with cholelithiasis 07/31/2012 02/15/2021 documented as of this encounter (statuses as of 01/09/2024) [facility] Narrative* Problem Noted Date Diagnosed Date Resolved Date Lymphedema, not elsewhere classified 07/24/2015 02/15/2021 Cholecystitis with cholelithiasis 07/31/2012 02/15/2021 documented as of this encounter (statuses as of 01/27/2024) [facility]* Diagnosis Onset Date Resolution Status HTN (hypertension) chronic Abdominal pain resolved Partial small bowel obstruction resolved Abdominal pain resolved History of blunt trauma to abdomen acute RLQ abdominal pain acute [facility] Work Phone: Evaluation note* Diagnosis Partial intestinal obstruction, unspecified cause (HCC)- Primary documented in this encounter [facility] noteThere may be information available, but it has not been provided by the sender.[facility] Work Phone: Evaluation note* Diagnosis Partial intestinal obstruction, unspecified cause (HCC)- Primary [facility]* Diagnosis Chronic left shoulder pain Pain in joint, shoulder region documented [facility] encounter [facility]* Diagnosis Shoulder impingement syndrome, left- Primary [facility]* Diagnosis Partial intestinal obstruction, unspecified cause (HCC) documented [facility]* Diagnosis Partial intestinal obstruction, unspecified cause (HCC)- Primary [facility]* Diagnosis 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, subsequent encounter Menopause Symptomatic menopausal or female climacteric states [facility] Diagnosis 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, subsequent encounter- Primary Menopause Symptomatic menopausal or female climacteric states [facility] Work Phone: Evaluation note* Diagnosis Closed fracture of left shoulder, sequela- Primary 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, unspecified part of clavicle, subsequent encounter documented in this encounter [facility] note* Diagnosis Closed fracture of left shoulder, sequela documented in this encounter [facility] note* Diagnosis 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, unspecified part of clavicle, subsequent encounter- Primary documented in this encounter [facility] note* Diagnosis 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, subsequent encounter- Primary Pre-op exam Preoperative examination, unspecified 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, subsequent encounter Pre-op exam Preoperative examination, unspecified documented in this encounter [facility] note* Diagnosis 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, subsequent encounter- Primary 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, unspecified part of clavicle, subsequent encounter 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, subsequent encounter Pre-op exam Preoperative examination, unspecified documented in this encounter [facility] note* Diagnosis Pre-operative examination- Primary Preoperative examination, unspecified MVP (mitral valve prolapse) Mitral valve disorders Hypertension, unspecified type VHD (valvular heart disease) Endocarditis, valve unspecified, unspecified cause Irritable bowel syndrome, unspecified type Osteopenia, unspecified location 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, subsequent encounter Pre-op exam Preoperative examination, unspecified documented in this encounter [facility] note* Diagnosis History of removal of retained hardware- Primary History of arthroplasty of left shoulder documented in this encounter [facility] note* Diagnosis 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, unspecified part of clavicle, subsequent encounter- Primary documented in this encounter [facility] note* Diagnosis 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, unspecified part of clavicle, subsequent encounter documented in this encounter [facility] note* Diagnosis Open fracture of left scapula with delayed healing, unspecified part of scapula, subsequent encounter- Primary Closed fracture of left shoulder, sequela 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, subsequent encounter [facility] History of removal of retained hardware- Primary Chronic left shoulder pain Pain in joint, shoulder region documented [facility] this encounter [facility]* Diagnosis Senile osteoporosis Menopause Symptomatic menopausal or female climacteric states [facility] 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, subsequent encounter- Primary History of left shoulder replacement [facility]* Diagnosis History of removal of retained hardware 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, 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 documented [facility]* Diagnosis History of removal of retained hardware- Primary 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, unspecified part of clavicle, subsequent encounter [facility]* Diagnosis 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, unspecified part of clavicle, subsequent encounter documented in this encounter [facility] note* Diagnosis Lipoma of left upper extremity- Primary 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, subsequent encounter Pre-op exam Preoperative examination, unspecified documented in this encounter [facility] note* Diagnosis History of removal of retained hardware 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, subsequent encounter 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, subsequent encounter Pre-op exam Preoperative examination, unspecified documented in this encounter [facility] note* Diagnosis History of removal of retained hardware 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, subsequent encounter 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, subsequent encounter Pre-op exam Preoperative examination, unspecified documented [facility]* Diagnosis Pre-operative examination- Primary Preoperative examination, unspecified Hypertension, unspecified type VHD (valvular heart disease) Endocarditis, valve unspecified, unspecified cause Osteopenia, unspecified location Irritable bowel syndrome, unspecified type Mixed hyperlipidemia 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, subsequent encounter Pre-op exam Preoperative examination, unspecified documented in this encounter [facility] note* Diagnosis History of removal of retained hardware- Primary S/P excision of lipoma Other postprocedural status documented in this encounter [facility] note* Diagnosis Pain- Primary Generalized pain documented in this encounter [facility] note* Diagnosis Pain Generalized pain documented in this encounter [facility] note* Diagnosis 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, unspecified part of clavicle, subsequent encounter- Primary Pre-op exam Preoperative examination, unspecified 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, unspecified part of clavicle, subsequent encounter Pre-op exam Preoperative examination, unspecified documented in this encounter [facility] note* Diagnosis 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, subsequent encounter- Primary 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, unspecified part of clavicle, subsequent encounter Pre-op exam Preoperative examination, unspecified documented in this encounter [facility] note* Diagnosis Senile osteoporosis- Primary [facility] Diagnosis 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, unspecified part of clavicle, subsequent encounter Pre-op exam Preoperative examination, unspecified documented in this encounter [facility] note* Diagnosis Status post open reduction and internal fixation (ORIF) of fracture- Primary documented in this encounter [facility] note* Diagnosis Status post open reduction and internal fixation (ORIF) of fracture- Primary documented in this encounter [facility] note* Diagnosis 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, unspecified part of clavicle, subsequent encounter Pre-op exam Preoperative examination, unspecified documented in this encounter [facility] note* Diagnosis 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, subsequent encounter- Primary Status post open reduction and internal fixation (ORIF) of fracture documented in this encounter [facility] note* Diagnosis History of arthroplasty of left shoulder- Primary documented in this encounter [facility] note* Diagnosis Status post open reduction and internal fixation (ORIF) of fracture- Primary 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, subsequent encounter documented in this encounter [facility] note* Diagnosis Status post open reduction and internal fixation (ORIF) of fracture documented in this encounter [facility] note* Diagnosis Preoperative examination- Primary Preoperative examination, unspecified 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, unspecified part of clavicle, subsequent encounter Hypertension, unspecified type Irritable bowel syndrome, unspecified type Osteoporosis, unspecified osteoporosis type, unspecified pathological fracture presence Encounter for preoperative screening laboratory testing for COVID-19 virus Pre-operative examination- Primary Preoperative examination, unspecified MVP (mitral valve prolapse) Mitral valve disorders Hypertension, unspecified type VHD (valvular heart disease) Endocarditis, valve unspecified, unspecified cause Irritable bowel syndrome, unspecified type Osteopenia, unspecified location History of removal of retained hardware Pre-operative examination- Primary Preoperative examination, unspecified Hypertension, unspecified type VHD (valvular heart disease) Endocarditis, valve unspecified, unspecified cause Osteopenia, unspecified location Irritable bowel syndrome, unspecified type Mixed hyperlipidemia Preoperative examination- Primary Preoperative examination, unspecified Mixed hyperlipidemia VHD (valvular heart disease) Endocarditis, valve unspecified, unspecified cause PONV (postoperative nausea and vomiting) Nausea with vomiting documented in this encounter [facility] note* Diagnosis Preoperative examination- Primary Preoperative examination, unspecified 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, unspecified part of clavicle, subsequent encounter Hypertension, unspecified type Irritable bowel syndrome, unspecified type Osteoporosis, unspecified osteoporosis type, unspecified pathological fracture presence Encounter for preoperative screening laboratory testing for COVID-19 virus Pre-operative examination- Primary Preoperative examination, unspecified MVP (mitral valve prolapse) Mitral valve disorders Hypertension, unspecified type VHD (valvular heart disease) Endocarditis, valve unspecified, unspecified cause Irritable bowel syndrome, unspecified type Osteopenia, unspecified location Pre-operative examination- Primary Preoperative examination, unspecified Hypertension, unspecified type VHD (valvular heart disease) Endocarditis, valve unspecified, unspecified cause Osteopenia, unspecified location Irritable bowel syndrome, unspecified type Mixed hyperlipidemia Preoperative examination- Primary Preoperative examination, unspecified Mixed hyperlipidemia VHD (valvular heart disease) Endocarditis, valve unspecified, unspecified cause PONV (postoperative nausea and vomiting) Nausea with vomiting Status post open reduction and internal fixation (ORIF) of fracture- Primary documented in this encounter [facility] note* Diagnosis Preoperative examination- Primary Preoperative examination, unspecified 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, unspecified part of clavicle, subsequent encounter Hypertension, unspecified type Irritable bowel syndrome, unspecified type Osteoporosis, unspecified osteoporosis type, unspecified pathological fracture presence Encounter for preoperative screening laboratory testing for COVID-19 virus Pre-operative examination- Primary Preoperative examination, unspecified MVP (mitral valve prolapse) Mitral valve disorders Hypertension, unspecified type VHD (valvular heart disease) Endocarditis, valve unspecified, unspecified cause Irritable bowel syndrome, unspecified type Osteopenia, unspecified location Pre-operative examination- Primary Preoperative examination, unspecified Hypertension, unspecified type VHD (valvular heart disease) Endocarditis, valve unspecified, unspecified cause Osteopenia, unspecified location Irritable bowel syndrome, unspecified type Mixed hyperlipidemia Preoperative examination- Primary Preoperative examination, unspecified Mixed hyperlipidemia VHD (valvular heart disease) Endocarditis, valve unspecified, unspecified cause PONV (postoperative nausea and vomiting) Nausea with vomiting Status post open reduction and internal fixation (ORIF) of fracture 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, subsequent encounter documented in this encounter [facility] note* Diagnosis Preoperative examination- Primary Preoperative examination, unspecified 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, unspecified part of clavicle, subsequent encounter Hypertension, unspecified type Irritable bowel syndrome, unspecified type Osteoporosis, unspecified osteoporosis type, unspecified pathological fracture presence Encounter for preoperative screening laboratory testing for COVID-19 virus 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, unspecified part of clavicle, subsequent encounter Pre-operative examination- Primary Preoperative examination, unspecified MVP (mitral valve prolapse) Mitral valve disorders Hypertension, unspecified type VHD (valvular heart disease) Endocarditis, valve unspecified, unspecified cause Irritable bowel syndrome, unspecified type Osteopenia, unspecified location Pre-operative examination- Primary Preoperative examination, unspecified Hypertension, unspecified type VHD (valvular heart disease) Endocarditis, valve unspecified, unspecified cause Osteopenia, unspecified location Irritable bowel syndrome, unspecified type Mixed hyperlipidemia Preoperative examination- Primary Preoperative examination, unspecified Mixed hyperlipidemia VHD (valvular heart disease) Endocarditis, valve unspecified, unspecified cause PONV (postoperative nausea and vomiting) Nausea with vomiting [facility] Diagnosis Preoperative examination- Primary Preoperative examination, unspecified 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, unspecified part of clavicle, subsequent encounter Hypertension, unspecified type Irritable bowel syndrome, unspecified type Osteoporosis, unspecified osteoporosis type, unspecified pathological fracture presence Encounter for preoperative screening laboratory testing for COVID-19 virus 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, unspecified part of clavicle, subsequent encounter Pre-operative examination- Primary Preoperative examination, unspecified MVP (mitral valve prolapse) Mitral valve disorders Hypertension, unspecified type VHD (valvular heart disease) Endocarditis, valve unspecified, unspecified cause Irritable bowel syndrome, unspecified type Osteopenia, unspecified location Pre-operative examination- Primary Preoperative examination, unspecified Hypertension, unspecified type VHD (valvular heart disease) Endocarditis, valve unspecified, unspecified cause Osteopenia, unspecified location Irritable bowel syndrome, unspecified type Mixed hyperlipidemia Preoperative examination- Primary Preoperative examination, unspecified Mixed hyperlipidemia VHD (valvular heart disease) Endocarditis, valve unspecified, unspecified cause PONV (postoperative nausea and vomiting) Nausea with vomiting [facility] Diagnosis Senile osteoporosis- Primary Menopause Symptomatic menopausal or female climacteric states Hypovitaminosis D Unspecified vitamin D deficiency [facility] Diagnosis Senile osteoporosis Menopause Symptomatic menopausal or female climacteric states [facility] Diagnosis Preoperative examination- Primary Preoperative examination, unspecified 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, unspecified part of clavicle, subsequent encounter Hypertension, unspecified type Irritable bowel syndrome, unspecified type Osteoporosis, unspecified osteoporosis type, unspecified pathological fracture presence Encounter for preoperative screening laboratory testing for COVID-19 virus 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, unspecified part of clavicle, subsequent encounter Pre-operative examination- Primary Preoperative examination, unspecified MVP (mitral valve prolapse) Mitral valve disorders Hypertension, unspecified type VHD (valvular heart disease) Endocarditis, valve unspecified, unspecified cause Irritable bowel syndrome, unspecified type Osteopenia, unspecified location Pre-operative examination- Primary Preoperative examination, unspecified Hypertension, unspecified type VHD (valvular heart disease) Endocarditis, valve unspecified, unspecified cause Osteopenia, unspecified location Irritable bowel syndrome, unspecified type Mixed hyperlipidemia Preoperative examination- Primary Preoperative examination, unspecified Mixed hyperlipidemia VHD (valvular heart disease) Endocarditis, valve unspecified, unspecified cause PONV (postoperative nausea and vomiting) Nausea with vomiting [facility]* Diagnosis Senile osteoporosis- Primary [facility] Diagnosis Preoperative examination- Primary Preoperative examination, unspecified 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, unspecified part of clavicle, subsequent encounter Hypertension, unspecified type Irritable bowel syndrome, unspecified type Osteoporosis, unspecified osteoporosis type, unspecified pathological fracture presence Encounter for preoperative screening laboratory testing for COVID-19 virus Pre-operative examination- Primary Preoperative examination, unspecified MVP (mitral valve prolapse) Mitral valve disorders Hypertension, unspecified type VHD (valvular heart disease) Endocarditis, valve unspecified, unspecified cause Irritable bowel syndrome, unspecified type Osteopenia, unspecified location Pre-operative examination- Primary Preoperative examination, unspecified Hypertension, unspecified type VHD (valvular heart disease) Endocarditis, valve unspecified, unspecified cause Osteopenia, unspecified location Irritable bowel syndrome, unspecified type Mixed hyperlipidemia Preoperative examination- Primary Preoperative examination, unspecified Mixed hyperlipidemia VHD (valvular heart disease) Endocarditis, valve unspecified, unspecified cause PONV (postoperative nausea and vomiting) Nausea with vomiting Pain in thoracic spine- Primary documented in this encounter [facility] note* Diagnosis Preoperative examination- Primary Preoperative examination, unspecified 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, unspecified part of clavicle, subsequent encounter Hypertension, unspecified type Irritable bowel syndrome, unspecified type Osteoporosis, unspecified osteoporosis type, unspecified pathological fracture presence Encounter for preoperative screening laboratory testing for COVID-19 virus Pre-operative examination- Primary Preoperative examination, unspecified MVP (mitral valve prolapse) Mitral valve disorders Hypertension, unspecified type VHD (valvular heart disease) Endocarditis, valve unspecified, unspecified cause Irritable bowel syndrome, unspecified type Osteopenia, unspecified location Pre-operative examination- Primary Preoperative examination, unspecified Hypertension, unspecified type VHD (valvular heart disease) Endocarditis, valve unspecified, unspecified cause Osteopenia, unspecified location Irritable bowel syndrome, unspecified type Mixed hyperlipidemia Preoperative examination- Primary Preoperative examination, unspecified Mixed hyperlipidemia VHD (valvular heart disease) Endocarditis, valve unspecified, unspecified cause PONV (postoperative nausea and vomiting) Nausea with vomiting Traumatic long thoracic nerve palsy, initial encounter- Primary documented in this encounter [facility] note* Diagnosis Preoperative examination- Primary Preoperative examination, unspecified 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, unspecified part of clavicle, subsequent encounter Hypertension, unspecified type Irritable bowel syndrome, unspecified type Osteoporosis, unspecified osteoporosis type, unspecified pathological fracture presence Encounter for preoperative screening laboratory testing for COVID-19 virus Pre-operative examination- Primary Preoperative examination, unspecified MVP (mitral valve prolapse) Mitral valve disorders Hypertension, unspecified type VHD (valvular heart disease) Endocarditis, valve unspecified, unspecified cause Irritable bowel syndrome, unspecified type Osteopenia, unspecified location Pre-operative examination- Primary Preoperative examination, unspecified Hypertension, unspecified type VHD (valvular heart disease) Endocarditis, valve unspecified, unspecified cause Osteopenia, unspecified location Irritable bowel syndrome, unspecified type Mixed hyperlipidemia Preoperative examination- Primary Preoperative examination, unspecified Mixed hyperlipidemia VHD (valvular heart disease) Endocarditis, valve unspecified, unspecified cause PONV (postoperative nausea and vomiting) Nausea with vomiting Traumatic long thoracic nerve palsy, initial encounter documented in this encounter [facility] note* Diagnosis Senile osteoporosis- Primary Menopause Symptomatic menopausal or female climacteric states Nonspecific abnormal results of endocrine function study Nonspecific abnormal results of other endocrine function study [facility] Name Dates Details Patient Instructions Indication:Leg cramping Start:04-Feb-2021 Instruction Type:Provider Instructions for Treatment How to Access Health Informa tion Online using Patient Portal and [employer] Apps Indication:Leg cramping Start:04-Feb-2021 Instruction Type:Patient Education Patient Instructions Indication:Fracture of left clavicle with nonunion Start:06-Nov-2020 Instruction Type:Provider Instructions for Treatment How to Access Health Informa tion Online using Patient Portal and [employer] Apps Indication:Fracture of left clavicle with nonunion Start:06-Nov-2020 Instruction Type:Patient Education Patient Instructions Indication:Elevated blood pressure reading Start:27-Oct-2020 Instruction Type:Provider Instructions for Treatment How to Access Health Informa tion Online using Patient Portal and [employer] Apps Indication:Elevated blood pressure reading Start:27-Oct-2020 Instruction Type:Patient Education How to access health informa tion online Indication:Fracture of left clavicle with nonunion Start:01-Sep-2020 Instruction Type:Patient Education How to access health informa tion online - Detail Indication:Fracture of left clavicle with nonunion Start:01-Sep-2020 Instruction Type:Patient Education Patient Instructions Indication:Fracture of left clavicle with nonunion Start:01-Sep-2020 Instruction Type:Provider Instructions for Treatment How to access health informa tion online Indication:Non-smoker Start:07-Jul-2020 Instruction Type:Patient Education How to access health informa tion online - Detail Indication:Non-smoker Start:07-Jul-2020 Instruction Type:Patient Education Patient Instructions Indication:Non-smoker Start:07-Jul-2020 Instruction Type:Provider Instructions for Treatment How to access health informa tion online Indication:Unspecified Diagnosis Start:09-Jun-2020 Instruction Type:Patient Education How to access health informa tion online - Detail Indication:Unspecified Diagnosis Start:09-Jun-2020 Instruction Type:Patient Education Patient Instructions Indication:Unspecified Diagnosis Start:09-Jun-2020 Instruction Type:Provider Instructions for Treatment How to access health informa tion online Indication:BMI 20.0-20.9, adult Start:23-Apr-2020 Instruction Type:Patient Education How to access health informa tion online - Detail Indication:BMI 20.0-20.9, adult Start:23-Apr-2020 Instruction Type:Patient Education Patient Instructions Indication:BMI 20.0-20.9, adult Start:23-Apr-2020 Instruction Type:Provider Instructions for Treatment How to access health informa tion online Indication:Encounter for annual general medical examination with abnormal findings in adult Start:16-Mar-2020 Instruction Type:Patient Education How to access health informa tion online - Detail Indication:Encounter for annual general medical examination with abnormal findings in adult Start:16-Mar-2020 Instruction Type:Patient Education Patient Instructions Indication:Encounter for annual general medical examination with abnormal findings in adult Start:16-Mar-2020 Instruction Type:Provider Instructions for Treatment [facility] Work Phone: Instructions* Name Dates Details Patient Instructions Indication:Leg cramping Start:04-Feb-2021 Instruction Type:Provider Instructions for Treatment How to Access Health Informa tion Online using Patient Portal and [employer] Apps Indication:Leg cramping Start:04-Feb-2021 Instruction Type:Patient Education Patient Instructions Indication:Fracture of left clavicle with nonunion Start:06-Nov-2020 Instruction Type:Provider Instructions for Treatment How to Access Health Informa tion Online using Patient Portal and [employer] Apps Indication:Fracture of left clavicle with nonunion Start:06-Nov-2020 Instruction Type:Patient Education Patient Instructions Indication:Elevated blood pressure reading Start:27-Oct-2020 Instruction Type:Provider Instructions for Treatment How to Access Health Informa tion Online using Patient Portal and [employer] Indication:Elevated blood pressure reading Start:27-Oct-2020 Instruction Type:Patient Education How to access health informa tion online Indication:Fracture of left clavicle with nonunion Start:01-Sep-2020 Instruction Type:Patient Education How to access health informa tion online - Detail Indication:Fracture of left clavicle with nonunion Start:01-Sep-2020 Instruction Type:Patient Education Patient Instructions Indication:Fracture of left clavicle with nonunion Start:01-Sep-2020 Instruction Type:Provider Instructions for Treatment How to access health informa tion online Indication:Non-smoker Start:07-Jul-2020 Instruction Type:Patient Education How to access health informa tion online - Detail Indication:Non-smoker Start:07-Jul-2020 Instruction Type:Patient Education Patient Instructions Indication:Non-smoker Start:07-Jul-2020 Instruction Type:Provider Instructions for Treatment How to access health informa tion online Indication:Unspecified Diagnosis Start:09-Jun-2020 Instruction Type:Patient Education How to access health informa tion online - Detail Indication:Unspecified Diagnosis Start:09-Jun-2020 Instruction Type:Patient Education Patient Instructions Indication:Unspecified Diagnosis Start:09-Jun-2020 Instruction Type:Provider Instructions for Treatment How to access health informa tion online Indication:BMI 20.0-20.9, adult Start:23-Apr-2020 Instruction Type:Patient Education How to access health informa tion online - Detail Indication:BMI 20.0-20.9, adult Start:23-Apr-2020 Instruction Type:Patient Education Patient Instructions Indication:BMI 20.0-20.9, adult Start:23-Apr-2020 Instruction Type:Provider Instructions for Treatment How to access health informa tion online Indication:Encounter for annual general medical examination with abnormal findings in adult Start:16-Mar-2020 Instruction Type:Patient Education How to access health informa tion online - Detail Indication:Encounter for annual general medical examination with abnormal findings in adult Start:16-Mar-2020 Instruction Type:Patient Education Patient Instructions Indication:Encounter for annual general medical examination with abnormal findings in adult Start:16-Mar-2020 Instruction Type:Provider Instructions for Treatment [facility]; [facility] Work Phone: Instructions* Name Dates Details Patient Instructions Indication:Leg cramping Start:04-Feb-2021 Instruction Type:Provider Instructions for Treatment How to Access Health Informa tion Online using Patient Portal and [employer] Apps Indication:Leg cramping Start:04-Feb-2021 Instruction Type:Patient Education Patient Instructions Indication:Fracture of left clavicle with nonunion Start:06-Nov-2020 Instruction Type:Provider Instructions for Treatment How to Access Health Informa tion Online using Patient Portal and [employer] Apps Indication:Fracture of left clavicle with nonunion Start:06-Nov-2020 Instruction Type:Patient Education Patient Instructions Indication:Elevated blood pressure reading Start:27-Oct-2020 Instruction Type:Provider Instructions for Treatment How to Access Health Informa tion Online using Patient Portal and [employer] Apps Indication:Elevated blood pressure reading Start:27-Oct-2020 Instruction Type:Patient Education How to access health informa tion online Indication:Fracture of left clavicle with nonunion Start:01-Sep-2020 Instruction Type:Patient Education How to access health informa tion online - Detail Indication:Fracture of left clavicle with nonunion Start:01-Sep-2020 Instruction Type:Patient Education Patient Instructions Indication:Fracture of left clavicle with nonunion Start:01-Sep-2020 Instruction Type:Provider Instructions for Treatment How to access health informa tion online Indication:Non-smoker Start:07-Jul-2020 Instruction Type:Patient Education How to access health informa tion online - Detail Indication:Non-smoker Start:07-Jul-2020 Instruction Type:Patient Education Patient Instructions Indication:Non-smoker Start:07-Jul-2020 Instruction Type:Provider Instructions for Treatment How to access health informa tion online Indication:Unspecified Diagnosis Start:09-Jun-2020 Instruction Type:Patient Education How to access health informa tion online - Detail Indication:Unspecified Diagnosis Start:09-Jun-2020 Instruction Type:Patient Education Patient Instructions Indication:Unspecified Diagnosis Start:09-Jun-2020 Instruction Type:Provider Instructions for Treatment How to access health informa tion online Indication:BMI 20.0-20.9, adult Start:23-Apr-2020 Instruction Type:Patient Education How to access health informa tion online - Detail Indication:BMI 20.0-20.9, adult Start:23-Apr-2020 Instruction Type:Patient Education Patient Instructions Indication:BMI 20.0-20.9, adult Start:23-Apr-2020 Instruction Type:Provider Instructions for Treatment How to access health informa tion online Indication:Encounter for annual general medical examination with abnormal findings in adult Start:16-Mar-2020 Instruction Type:Patient Education How to access health informa tion online - Detail Indication:Encounter for annual general medical examination with abnormal findings in adult Start:16-Mar-2020 Instruction Type:Patient Education Patient Instructions Indication:Encounter for annual general medical examination with abnormal findings in adult Start:16-Mar-2020 Instruction Type:Provider Instructions for Treatment [facility]; [facility] Work Phone: Instructions* Name Dates Details Patient Instructions Indication:BMI 20.0-20.9, adult Start:24-Mar-2021 Instruction Type:Provider Instructions for Treatment How to Access Health Informa tion Online using Patient Portal and [employer] Indication:BMI 20.0-20.9, adult Start:24-Mar-2021 Instruction Type:Patient Education Patient Instructions Indication:Leg cramping Start:04-Feb-2021 Instruction Type:Provider Instructions for Treatment How to Access Health Informa tion Online using Patient Portal and [employer] Indication:Leg cramping Start:04-Feb-2021 Instruction Type:Patient Education Patient Instructions Indication:Fracture of left clavicle with nonunion Start:06-Nov-2020 Instruction Type:Provider Instructions for Treatment How to Access Health Informa tion Online using Patient Portal and [employer] Indication:Fracture of left clavicle with nonunion Start:06-Nov-2020 Instruction Type:Patient Education Patient Instructions Indication:Elevated blood pressure reading Start:27-Oct-2020 Instruction Type:Provider Instructions for Treatment How to Access Health Informa tion Online using Patient Portal and [employer] Indication:Elevated blood pressure reading Start:27-Oct-2020 Instruction Type:Patient Education How to access health informa tion online Indication:Fracture of left clavicle with nonunion Start:01-Sep-2020 Instruction Type:Patient Education How to access health informa tion online - Detail Indication:Fracture of left clavicle with nonunion Start:01-Sep-2020 Instruction Type:Patient Education Patient Instructions Indication:Fracture of left clavicle with nonunion Start:01-Sep-2020 Instruction Type:Provider Instructions for Treatment How to access health informa tion online Indication:Non-smoker Start:07-Jul-2020 Instruction Type:Patient Education How to access health informa tion online - Detail Indication:Non-smoker Start:07-Jul-2020 Instruction Type:Patient Education Patient Instructions Indication:Non-smoker Start:07-Jul-2020 Instruction Type:Provider Instructions for Treatment How to access health informa tion online Indication:Unspecified Diagnosis Start:09-Jun-2020 Instruction Type:Patient Education How to access health informa tion online - Detail Indication:Unspecified Diagnosis Start:09-Jun-2020 Instruction Type:Patient Education Patient Instructions Indication:Unspecified Diagnosis Start:09-Jun-2020 Instruction Type:Provider Instructions for Treatment How to access health informa tion online Indication:BMI 20.0-20.9, adult Start:23-Apr-2020 Instruction Type:Patient Education How to access health informa tion online - Detail Indication:BMI 20.0-20.9, adult Start:23-Apr-2020 Instruction Type:Patient Education Patient Instructions Indication:BMI 20.0-20.9, adult Start:23-Apr-2020 Instruction Type:Provider Instructions for Treatment How to access health informa tion online Indication:Encounter for annual general medical examination with abnormal findings in adult Start:16-Mar-2020 Instruction Type:Patient Education How to access health informa tion online - Detail Indication:Encounter for annual general medical examination with abnormal findings in adult Start:16-Mar-2020 Instruction Type:Patient Education Patient Instructions Indication:Encounter for annual general medical examination with abnormal findings in adult Start:16-Mar-2020 Instruction Type:Provider Instructions for Treatment [facility]; [facility] Work Phone: Instructions* Name Dates Details Patient Instructions Indication:BMI 20.0-20.9, adult Start:24-Mar-2021 Instruction Type:Provider Instructions for Treatment How to Access Health Informa tion Online using Patient Portal and [employer] Indication:BMI 20.0-20.9, adult Start:24-Mar-2021 Instruction Type:Patient Education Patient Instructions Indication:Leg cramping Start:04-Feb-2021 Instruction Type:Provider Instructions for Treatment How to Access Health Informa tion Online using Patient Portal and [employer] Indication:Leg cramping Start:04-Feb-2021 Instruction Type:Patient Education Patient Instructions Indication:Fracture of left clavicle with nonunion Start:06-Nov-2020 Instruction Type:Provider Instructions for Treatment How to Access Health Informa tion Online using Patient Portal and [employer] Indication:Fracture of left clavicle with nonunion Start:06-Nov-2020 Instruction Type:Patient Education Patient Instructions Indication:Elevated blood pressure reading Start:27-Oct-2020 Instruction Type:Provider Instructions for Treatment How to Access Health Informa tion Online using Patient Portal and [employer] Indication:Elevated blood pressure reading Start:27-Oct-2020 Instruction Type:Patient Education How to access health informa tion online Indication:Fracture of left clavicle with nonunion Start:01-Sep-2020 Instruction Type:Patient Education How to access health informa tion online - Detail Indication:Fracture of left clavicle with nonunion Start:01-Sep-2020 Instruction Type:Patient Education Patient Instructions Indication:Fracture of left clavicle with nonunion Start:01-Sep-2020 Instruction Type:Provider Instructions for Treatment How to access health informa tion online Indication:Non-smoker Start:07-Jul-2020 Instruction Type:Patient Education How to access health informa tion online - Detail Indication:Non-smoker Start:07-Jul-2020 Instruction Type:Patient Education Patient Instructions Indication:Non-smoker Start:07-Jul-2020 Instruction Type:Provider Instructions for Treatment How to access health informa tion online Indication:Unspecified Diagnosis Start:09-Jun-2020 Instruction Type:Patient Education How to access health informa tion online - Detail Indication:Unspecified Diagnosis Start:09-Jun-2020 Instruction Type:Patient Education Patient Instructions Indication:Unspecified Diagnosis Start:09-Jun-2020 Instruction Type:Provider Instructions for Treatment How to access health informa tion online Indication:BMI 20.0-20.9, adult Start:23-Apr-2020 Instruction Type:Patient Education How to access health informa tion online - Detail Indication:BMI 20.0-20.9, adult Start:23-Apr-2020 Instruction Type:Patient Education Patient Instructions Indication:BMI 20.0-20.9, adult Start:23-Apr-2020 Instruction Type:Provider Instructions for Treatment How to access health informa tion online Indication:Encounter for annual general medical examination with abnormal findings in adult Start:16-Mar-2020 Instruction Type:Patient Education How to access health informa tion online - Detail Indication:Encounter for annual general medical examination with abnormal findings in adult Start:16-Mar-2020 Instruction Type:Patient Education Patient Instructions Indication:Encounter for annual general medical examination with abnormal findings in adult Start:16-Mar-2020 Instruction Type:Provider Instructions for Treatment [facility]; [facility] Work Phone: Instructions* Name Dates Details Patient Instructions Indication:BMI 20.0-20.9, adult Start:24-Mar-2021 Instruction Type:Provider Instructions for Treatment How to Access Health Informa tion Online using Patient Portal and [employer] Indication:BMI 20.0-20.9, adult Start:24-Mar-2021 Instruction Type:Patient Education Patient Instructions Indication:Leg cramping Start:04-Feb-2021 Instruction Type:Provider Instructions for Treatment How to Access Health Informa tion Online using Patient Portal and [employer] Apps Indication:Leg cramping Start:04-Feb-2021 Instruction Type:Patient Education Patient Instructions Indication:Fracture of left clavicle with nonunion Start:06-Nov-2020 Instruction Type:Provider Instructions for Treatment How to Access Health Informa tion Online using Patient Portal and [employer] Indication:Fracture of left clavicle with nonunion Start:06-Nov-2020 Instruction Type:Patient Education Patient Instructions Indication:Elevated blood pressure reading Start:27-Oct-2020 Instruction Type:Provider Instructions for Treatment How to Access Health Informa tion Online using Patient Portal and [employer] Apps Indication:Elevated blood pressure reading Start:27-Oct-2020 Instruction Type:Patient Education How to access health informa tion online Indication:Fracture of left clavicle with nonunion Start:01-Sep-2020 Instruction Type:Patient Education How to access health informa tion online - Detail Indication:Fracture of left clavicle with nonunion Start:01-Sep-2020 Instruction Type:Patient Education Patient Instructions Indication:Fracture of left clavicle with nonunion Start:01-Sep-2020 Instruction Type:Provider Instructions for Treatment How to access health informa tion online Indication:Non-smoker Start:07-Jul-2020 Instruction Type:Patient Education How to access health informa tion online - Detail Indication:Non-smoker Start:07-Jul-2020 Instruction Type:Patient Education Patient Instructions Indication:Non-smoker Start:07-Jul-2020 Instruction Type:Provider Instructions for Treatment How to access health informa tion online Indication:Unspecified Diagnosis Start:09-Jun-2020 Instruction Type:Patient Education How to access health informa tion online - Detail Indication:Unspecified Diagnosis Start:09-Jun-2020 Instruction Type:Patient Education Patient Instructions Indication:Unspecified Diagnosis Start:09-Jun-2020 Instruction Type:Provider Instructions for Treatment How to access health informa tion online Indication:BMI 20.0-20.9, adult Start:23-Apr-2020 Instruction Type:Patient Education How to access health informa tion online - Detail Indication:BMI 20.0-20.9, adult Start:23-Apr-2020 Instruction Type:Patient Education Patient Instructions Indication:BMI 20.0-20.9, adult Start:23-Apr-2020 Instruction Type:Provider Instructions for Treatment How to access health informa tion online Indication:Encounter for annual general medical examination with abnormal findings in adult Start:16-Mar-2020 Instruction Type:Patient Education How to access health informa tion online - Detail Indication:Encounter for annual general medical examination with abnormal findings in adult Start:16-Mar-2020 Instruction Type:Patient Education Patient Instructions Indication:Encounter for annual general medical examination with abnormal findings in adult Start:16-Mar-2020 Instruction Type:Provider Instructions for Treatment [facility]; [facility] Work Phone: Instructions* Name Dates Details Patient Instructions Indication:BMI 20.0-20.9, adult Start:24-Mar-2021 Instruction Type:Provider Instructions for Treatment How to Access Health Informa tion Online using Patient Portal and [employer] Indication:BMI 20.0-20.9, adult Start:24-Mar-2021 Instruction Type:Patient Education Patient Instructions Indication:Leg cramping Start:04-Feb-2021 Instruction Type:Provider Instructions for Treatment How to Access Health Informa tion Online using Patient Portal and [employer] Indication:Leg cramping Start:04-Feb-2021 Instruction Type:Patient Education Patient Instructions Indication:Fracture of left clavicle with nonunion Start:06-Nov-2020 Instruction Type:Provider Instructions for Treatment How to Access Health Informa tion Online using Patient Portal and [employer] Indication:Fracture of left clavicle with nonunion Start:06-Nov-2020 Instruction Type:Patient Education Patient Instructions Indication:Elevated blood pressure reading Start:27-Oct-2020 Instruction Type:Provider Instructions for Treatment How to Access Health Informa tion Online using Patient Portal and [employer] Indication:Elevated blood pressure reading Start:27-Oct-2020 Instruction Type:Patient Education How to access health informa tion online Indication:Fracture of left clavicle with nonunion Start:01-Sep-2020 Instruction Type:Patient Education How to access health informa tion online - Detail Indication:Fracture of left clavicle with nonunion Start:01-Sep-2020 Instruction Type:Patient Education Patient Instructions Indication:Fracture of left clavicle with nonunion Start:01-Sep-2020 Instruction Type:Provider Instructions for Treatment How to access health informa tion online Indication:Non-smoker Start:07-Jul-2020 Instruction Type:Patient Education How to access health informa tion online - Detail Indication:Non-smoker Start:07-Jul-2020 Instruction Type:Patient Education Patient Instructions Indication:Non-smoker Start:07-Jul-2020 Instruction Type:Provider Instructions for Treatment How to access health informa tion online Indication:Unspecified Diagnosis Start:09-Jun-2020 Instruction Type:Patient Education How to access health informa tion online - Detail Indication:Unspecified Diagnosis Start:09-Jun-2020 Instruction Type:Patient Education Patient Instructions Indication:Unspecified Diagnosis Start:09-Jun-2020 Instruction Type:Provider Instructions for Treatment How to access health informa tion online Indication:BMI 20.0-20.9, adult Start:23-Apr-2020 Instruction Type:Patient Education How to access health informa tion online - Detail Indication:BMI 20.0-20.9, adult Start:23-Apr-2020 Instruction Type:Patient Education Patient Instructions Indication:BMI 20.0-20.9, adult Start:23-Apr-2020 Instruction Type:Provider Instructions for Treatment How to access health informa tion online Indication:Encounter for annual general medical examination with abnormal findings in adult Start:16-Mar-2020 Instruction Type:Patient Education How to access health informa tion online - Detail Indication:Encounter for annual general medical examination with abnormal findings in adult Start:16-Mar-2020 Instruction Type:Patient Education Patient Instructions Indication:Encounter for annual general medical examination with abnormal findings in adult Start:16-Mar-2020 Instruction Type:Provider Instructions for Treatment [facility]; [facility] Work Phone: Instructions* Name Dates Details Patient Instructions Indication:BMI 20.0-20.9, adult Start:02-Apr-2021 Instruction Type:Provider Instructions for Treatment How to Access Health Informa tion Online using Patient Portal and [employer] Apps Indication:BMI 20.0-20.9, adult Start:02-Apr-2021 Instruction Type:Patient Education Patient Instructions Indication:BMI 20.0-20.9, adult Start:24-Mar-2021 Instruction Type:Provider Instructions for Treatment How to Access Health Informa tion Online using Patient Portal and [employer] Indication:BMI 20.0-20.9, adult Start:24-Mar-2021 Instruction Type:Patient Education Patient Instructions Indication:Leg cramping Start:04-Feb-2021 Instruction Type:Provider Instructions for Treatment How to Access Health Informa tion Online using Patient Portal and [employer] Apps Indication:Leg cramping Start:04-Feb-2021 Instruction Type:Patient Education Patient Instructions Indication:Fracture of left clavicle with nonunion Start:06-Nov-2020 Instruction Type:Provider Instructions for Treatment How to Access Health Informa tion Online using Patient Portal and [employer] Apps Indication:Fracture of left clavicle with nonunion Start:06-Nov-2020 Instruction Type:Patient Education Patient Instructions Indication:Elevated blood pressure reading Start:27-Oct-2020 Instruction Type:Provider Instructions for Treatment How to Access Health Informa tion Online using Patient Portal and [employer] Apps Indication:Elevated blood pressure reading Start:27-Oct-2020 Instruction Type:Patient Education How to access health informa tion online Indication:Fracture of left clavicle with nonunion Start:01-Sep-2020 Instruction Type:Patient Education How to access health informa tion online - Detail Indication:Fracture of left clavicle with nonunion Start:01-Sep-2020 Instruction Type:Patient Education Patient Instructions Indication:Fracture of left clavicle with nonunion Start:01-Sep-2020 Instruction Type:Provider Instructions for Treatment How to access health informa tion online Indication:Non-smoker Start:07-Jul-2020 Instruction Type:Patient Education How to access health informa tion online - Detail Indication:Non-smoker Start:07-Jul-2020 Instruction Type:Patient Education Patient Instructions Indication:Non-smoker Start:07-Jul-2020 Instruction Type:Provider Instructions for Treatment How to access health informa tion online Indication:Unspecified Diagnosis Start:09-Jun-2020 Instruction Type:Patient Education How to access health informa tion online - Detail Indication:Unspecified Diagnosis Start:09-Jun-2020 Instruction Type:Patient Education Patient Instructions Indication:Unspecified Diagnosis Start:09-Jun-2020 Instruction Type:Provider Instructions for Treatment How to access health informa tion online Indication:BMI 20.0-20.9, adult Start:23-Apr-2020 Instruction Type:Patient Education How to access health informa tion online - Detail Indication:BMI 20.0-20.9, adult Start:23-Apr-2020 Instruction Type:Patient Education Patient Instructions Indication:BMI 20.0-20.9, adult Start:23-Apr-2020 Instruction Type:Provider Instructions for Treatment How to access health informa tion online Indication:Encounter for annual general medical examination with abnormal findings in adult Start:16-Mar-2020 Instruction Type:Patient Education How to access health informa tion online - Detail Indication:Encounter for annual general medical examination with abnormal findings in adult Start:16-Mar-2020 Instruction Type:Patient Education Patient Instructions Indication:Encounter for annual general medical examination with abnormal findings in adult Start:16-Mar-2020 Instruction Type:Provider Instructions for Treatment [facility]; [facility] Work Phone: Instructions* Name Dates Details Patient Instructions Indication:BMI 20.0-20.9, adult Start:02-Apr-2021 Instruction Type:Provider Instructions for Treatment How to Access Health Informa tion Online using Patient Portal and [employer] Indication:BMI 20.0-20.9, adult Start:02-Apr-2021 Instruction Type:Patient Education Patient Instructions Indication:BMI 20.0-20.9, adult Start:24-Mar-2021 Instruction Type:Provider Instructions for Treatment How to Access Health Informa tion Online using Patient Portal and [employer] Indication:BMI 20.0-20.9, adult Start:24-Mar-2021 Instruction Type:Patient Education Patient Instructions Indication:Leg cramping Start:04-Feb-2021 Instruction Type:Provider Instructions for Treatment How to Access Health Informa tion Online using Patient Portal and [employer] Indication:Leg cramping Start:04-Feb-2021 Instruction Type:Patient Education Patient Instructions Indication:Fracture of left clavicle with nonunion Start:06-Nov-2020 Instruction Type:Provider Instructions for Treatment How to Access Health Informa tion Online using Patient Portal and [employer] Indication:Fracture of left clavicle with nonunion Start:06-Nov-2020 Instruction Type:Patient Education Patient Instructions Indication:Elevated blood pressure reading Start:27-Oct-2020 Instruction Type:Provider Instructions for Treatment How to Access Health Informa tion Online using Patient Portal and [employer] Indication:Elevated blood pressure reading Start:27-Oct-2020 Instruction Type:Patient Education How to access health informa tion online Indication:Fracture of left clavicle with nonunion Start:01-Sep-2020 Instruction Type:Patient Education How to access health informa tion online - Detail Indication:Fracture of left clavicle with nonunion Start:01-Sep-2020 Instruction Type:Patient Education Patient Instructions Indication:Fracture of left clavicle with nonunion Start:01-Sep-2020 Instruction Type:Provider Instructions for Treatment How to access health informa tion online Indication:Non-smoker Start:07-Jul-2020 Instruction Type:Patient Education How to access health informa tion online - Detail Indication:Non-smoker Start:07-Jul-2020 Instruction Type:Patient Education Patient Instructions Indication:Non-smoker Start:07-Jul-2020 Instruction Type:Provider Instructions for Treatment How to access health informa tion online Indication:Unspecified Diagnosis Start:09-Jun-2020 Instruction Type:Patient Education How to access health informa tion online - Detail Indication:Unspecified Diagnosis Start:09-Jun-2020 Instruction Type:Patient Education Patient Instructions Indication:Unspecified Diagnosis Start:09-Jun-2020 Instruction Type:Provider Instructions for Treatment How to access health informa tion online Indication:BMI 20.0-20.9, adult Start:23-Apr-2020 Instruction Type:Patient Education How to access health informa tion online - Detail Indication:BMI 20.0-20.9, adult Start:23-Apr-2020 Instruction Type:Patient Education Patient Instructions Indication:BMI 20.0-20.9, adult Start:23-Apr-2020 Instruction Type:Provider Instructions for Treatment How to access health informa tion online Indication:Encounter for annual general medical examination with abnormal findings in adult Start:16-Mar-2020 Instruction Type:Patient Education How to access health informa tion online - Detail Indication:Encounter for annual general medical examination with abnormal findings in adult Start:16-Mar-2020 Instruction Type:Patient Education Patient Instructions Indication:Encounter for annual general medical examination with abnormal findings in adult Start:16-Mar-2020 Instruction Type:Provider Instructions for Treatment [facility]; [facility] Work Phone: Instructions* Name Dates Details Patient Instructions Indication:Encounter for annual general medical examination with abnormal findings in adult Start:13-Jul-2021 Instruction Type:Provider Instructions for Treatment How to Access Health Informa tion Online using Patient Portal and [employer] Indication:Encounter for annual general medical examination with abnormal findings in adult Start:13-Jul-2021 Instruction Type:Patient Education Patient Instructions Indication:Non-smoker Start:09-Jul-2021 Instruction Type:Provider Instructions for Treatment How to Access Health Informa tion Online using Patient Portal and [employer] Indication:Non-smoker Start:09-Jul-2021 Instruction Type:Patient Education Patient Instructions Indication:BMI 20.0-20.9, adult Start:02-Apr-2021 Instruction Type:Provider Instructions for Treatment How to Access Health Informa tion Online using Patient [employer] and [employer] Indication:BMI 20.0-20.9, adult Start:02-Apr-2021 Instruction Type:Patient Education Patient Instructions Indication:BMI 20.0-20.9, adult Start:24-Mar-2021 Instruction Type:Provider Instructions for Treatment How to Access Health Informa tion Online using Patient [employer] and [employer] Apps Indication:BMI 20.0-20.9, adult Start:24-Mar-2021 Instruction Type:Patient Education Patient Instructions Indication:Leg cramping Start:04-Feb-2021 Instruction Type:Provider Instructions for Treatment How to Access Health Informa tion Online using Patient Portal and [employer] Apps Indication:Leg cramping Start:04-Feb-2021 Instruction Type:Patient Education Patient Instructions Indication:Fracture of left clavicle with nonunion Start:06-Nov-2020 Instruction Type:Provider Instructions for Treatment How to Access Health Informa tion Online using Patient Portal and [employer] Indication:Fracture of left clavicle with nonunion Start:06-Nov-2020 Instruction Type:Patient Education Patient Instructions Indication:Elevated blood pressure reading Start:27-Oct-2020 Instruction Type:Provider Instructions for Treatment How to Access Health Informa tion Online using Patient Portal and [employer] Indication:Elevated blood pressure reading Start:27-Oct-2020 Instruction Type:Patient Education How to access health informa tion online Indication:Fracture of left clavicle with nonunion Start:01-Sep-2020 Instruction Type:Patient Education How to access health informa tion online - Detail Indication:Fracture of left clavicle with nonunion Start:01-Sep-2020 Instruction Type:Patient Education Patient Instructions Indication:Fracture of left clavicle with nonunion Start:01-Sep-2020 Instruction Type:Provider Instructions for Treatment How to access health informa tion online Indication:Non-smoker Start:07-Jul-2020 Instruction Type:Patient Education How to access health informa tion online - Detail Indication:Non-smoker Start:07-Jul-2020 Instruction Type:Patient Education Patient Instructions Indication:Non-smoker Start:07-Jul-2020 Instruction Type:Provider Instructions for Treatment How to access health informa tion online Indication:Unspecified Diagnosis Start:09-Jun-2020 Instruction Type:Patient Education How to access health informa tion online - Detail Indication:Unspecified Diagnosis Start:09-Jun-2020 Instruction Type:Patient Education Patient Instructions Indication:Unspecified Diagnosis Start:09-Jun-2020 Instruction Type:Provider Instructions for Treatment How to access health informa tion online Indication:BMI 20.0-20.9, adult Start:23-Apr-2020 Instruction Type:Patient Education How to access health informa tion online - Detail Indication:BMI 20.0-20.9, adult Start:23-Apr-2020 Instruction Type:Patient Education Patient Instructions Indication:BMI 20.0-20.9, adult Start:23-Apr-2020 Instruction Type:Provider Instructions for Treatment How to access health informa tion online Indication:Encounter for annual general medical examination with abnormal findings in adult Start:16-Mar-2020 Instruction Type:Patient Education How to access health informa tion online - Detail Indication:Encounter for annual general medical examination with abnormal findings in adult Start:16-Mar-2020 Instruction Type:Patient Education Patient Instructions Indication:Encounter for annual general medical examination with abnormal findings in adult Start:16-Mar-2020 Instruction Type:Provider Instructions for Treatment [facility]; [facility] Work Phone: Instructions* Name Dates Details Patient Instructions Indication:Encounter for annual general medical examination with abnormal findings in adult Start:11-Nov-2021 Instruction Type:Provider Instructions for Treatment How to Access Health Informa tion Online using Patient Portal and [employer] Indication:Encounter for annual general medical examination with abnormal findings in adult Start:11-Nov-2021 Instruction Type:Patient Education Patient Instructions Indication:Encounter for annual general medical examination with abnormal findings in adult Start:13-Jul-2021 Instruction Type:Provider Instructions for Treatment How to Access Health Informa tion Online using Patient Portal and [employer] Indication:Encounter for annual general medical examination with abnormal findings in adult Start:13-Jul-2021 Instruction Type:Patient Education Patient Instructions Indication:Non-smoker Start:09-Jul-2021 Instruction Type:Provider Instructions for Treatment How to Access Health Informa tion Online using Patient Portal and [employer] Apps Indication:Non-smoker Start:09-Jul-2021 Instruction Type:Patient Education Patient Instructions Indication:BMI 20.0-20.9, adult Start:02-Apr-2021 Instruction Type:Provider Instructions for Treatment How to Access Health Informa tion Online using Patient Portal and [employer] Apps Indication:BMI 20.0-20.9, adult Start:02-Apr-2021 Instruction Type:Patient Education Patient Instructions Indication:BMI 20.0-20.9, adult Start:24-Mar-2021 Instruction Type:Provider Instructions for Treatment How to Access Health Informa tion Online using Patient Portal and [employer] Apps Indication:BMI 20.0-20.9, adult Start:24-Mar-2021 Instruction Type:Patient Education Patient Instructions Indication:Leg cramping Start:04-Feb-2021 Instruction Type:Provider Instructions for Treatment How to Access Health Informa tion Online using Patient Portal and [employer] Apps Indication:Leg cramping Start:04-Feb-2021 Instruction Type:Patient Education Patient Instructions Indication:Fracture of left clavicle with nonunion Start:06-Nov-2020 Instruction Type:Provider Instructions for Treatment How to Access Health Informa tion Online using Patient Portal and [employer] Apps Indication:Fracture of left clavicle with nonunion Start:06-Nov-2020 Instruction Type:Patient Education Patient Instructions Indication:Elevated blood pressure reading Start:27-Oct-2020 Instruction Type:Provider Instructions for Treatment How to Access Health Informa tion Online using Patient Portal and [employer] Indication:Elevated blood pressure reading Start:27-Oct-2020 Instruction Type:Patient Education How to access health informa tion online Indication:Fracture of left clavicle with nonunion Start:01-Sep-2020 Instruction Type:Patient Education How to access health informa tion online - Detail Indication:Fracture of left clavicle with nonunion Start:01-Sep-2020 Instruction Type:Patient Education Patient Instructions Indication:Fracture of left clavicle with nonunion Start:01-Sep-2020 Instruction Type:Provider Instructions for Treatment How to access health informa tion online Indication:Non-smoker Start:07-Jul-2020 Instruction Type:Patient Education How to access health informa tion online - Detail Indication:Non-smoker Start:07-Jul-2020 Instruction Type:Patient Education Patient Instructions Indication:Non-smoker Start:07-Jul-2020 Instruction Type:Provider Instructions for Treatment How to access health informa tion online Indication:Unspecified Diagnosis Start:09-Jun-2020 Instruction Type:Patient Education How to access health informa tion online - Detail Indication:Unspecified Diagnosis Start:09-Jun-2020 Instruction Type:Patient Education Patient Instructions Indication:Unspecified Diagnosis Start:09-Jun-2020 Instruction Type:Provider Instructions for Treatment How to access health informa tion online Indication:BMI 20.0-20.9, adult Start:23-Apr-2020 Instruction Type:Patient Education How to access health informa tion online - Detail Indication:BMI 20.0-20.9, adult Start:23-Apr-2020 Instruction Type:Patient Education Patient Instructions Indication:BMI 20.0-20.9, adult Start:23-Apr-2020 Instruction Type:Provider Instructions for Treatment How to access health informa tion online Indication:Encounter for annual general medical examination with abnormal findings in adult Start:16-Mar-2020 Instruction Type:Patient Education How to access health informa tion online - Detail Indication:Encounter for annual general medical examination with abnormal findings in adult Start:16-Mar-2020 Instruction Type:Patient Education Patient Instructions Indication:Encounter for annual general medical examination with abnormal findings in adult Start:16-Mar-2020 Instruction Type:Provider Instructions for Treatment [facility]; [facility] Work Phone: Instructions* Name Dates Details Patient Instructions Indication:Encounter for annual general medical examination with abnormal findings in adult Start:11-Nov-2021 Instruction Type:Provider Instructions for Treatment How to Access Health Informa tion Online using Patient Portal and [employer] Indication:Encounter for annual general medical examination with abnormal findings in adult Start:11-Nov-2021 Instruction Type:Patient Education Patient Instructions Indication:Encounter for annual general medical examination with abnormal findings in adult Start:13-Jul-2021 Instruction Type:Provider Instructions for Treatment How to Access Health Informa tion Online using Patient Portal and [employer] Indication:Encounter for annual general medical examination with abnormal findings in adult Start:13-Jul-2021 Instruction Type:Patient Education Patient Instructions Indication:Non-smoker Start:09-Jul-2021 Instruction Type:Provider Instructions for Treatment How to Access Health Informa tion Online using Patient Portal and [employer] Indication:Non-smoker Start:09-Jul-2021 Instruction Type:Patient Education Patient Instructions Indication:BMI 20.0-20.9, adult Start:02-Apr-2021 Instruction Type:Provider Instructions for Treatment How to Access Health Informa tion Online using Patient Portal and [employer] Indication:BMI 20.0-20.9, adult Start:02-Apr-2021 Instruction Type:Patient Education Patient Instructions Indication:BMI 20.0-20.9, adult Start:24-Mar-2021 Instruction Type:Provider Instructions for Treatment How to Access Health Informa tion Online using Patient Portal and [employer] Indication:BMI 20.0-20.9, adult Start:24-Mar-2021 Instruction Type:Patient Education Patient Instructions Indication:Leg cramping Start:04-Feb-2021 Instruction Type:Provider Instructions for Treatment How to Access Health Informa tion Online using Patient Portal and [employer] Indication:Leg cramping Start:04-Feb-2021 Instruction Type:Patient Education Patient Instructions Indication:Fracture of left clavicle with nonunion Start:06-Nov-2020 Instruction Type:Provider Instructions for Treatment How to Access Health Informa tion Online using Patient Portal and [employer] Indication:Fracture of left clavicle with nonunion Start:06-Nov-2020 Instruction Type:Patient Education Patient Instructions Indication:Elevated blood pressure reading Start:27-Oct-2020 Instruction Type:Provider Instructions for Treatment How to Access Health Informa tion Online using Patient Portal and [employer] Indication:Elevated blood pressure reading Start:27-Oct-2020 Instruction Type:Patient Education How to access health informa tion online Indication:Fracture of left clavicle with nonunion Start:01-Sep-2020 Instruction Type:Patient Education How to access health informa tion online - Detail Indication:Fracture of left clavicle with nonunion Start:01-Sep-2020 Instruction Type:Patient Education Patient Instructions Indication:Fracture of left clavicle with nonunion Start:01-Sep-2020 Instruction Type:Provider Instructions for Treatment How to access health informa tion online Indication:Non-smoker Start:07-Jul-2020 Instruction Type:Patient Education How to access health informa tion online - Detail Indication:Non-smoker Start:07-Jul-2020 Instruction Type:Patient Education Patient Instructions Indication:Non-smoker Start:07-Jul-2020 Instruction Type:Provider Instructions for Treatment How to access health informa tion online Indication:Unspecified Diagnosis Start:09-Jun-2020 Instruction Type:Patient Education How to access health informa tion online - Detail Indication:Unspecified Diagnosis Start:09-Jun-2020 Instruction Type:Patient Education Patient Instructions Indication:Unspecified Diagnosis Start:09-Jun-2020 Instruction Type:Provider Instructions for Treatment How to access health informa tion online Indication:BMI 20.0-20.9, adult Start:23-Apr-2020 Instruction Type:Patient Education How to access health informa tion online - Detail Indication:BMI 20.0-20.9, adult Start:23-Apr-2020 Instruction Type:Patient Education Patient Instructions Indication:BMI 20.0-20.9, adult Start:23-Apr-2020 Instruction Type:Provider Instructions for Treatment How to access health informa tion online Indication:Encounter for annual general medical examination with abnormal findings in adult Start:16-Mar-2020 Instruction Type:Patient Education How to access health informa tion online - Detail Indication:Encounter for annual general medical examination with abnormal findings in adult Start:16-Mar-2020 Instruction Type:Patient Education Patient Instructions Indication:Encounter for annual general medical examination with abnormal findings in adult Start:16-Mar-2020 Instruction Type:Provider Instructions for Treatment [facility]; [facility] Work Phone: Instructions* Name Dates Details Patient Instructions Indication:Encounter for annual general medical examination with abnormal findings in adult Start:11-Nov-2021 Instruction Type:Provider Instructions for Treatment How to Access Health Informa tion Online using Patient Portal and [employer] Indication:Encounter for annual general medical examination with abnormal findings in adult Start:11-Nov-2021 Instruction Type:Patient Education Patient Instructions Indication:Encounter for annual general medical examination with abnormal findings in adult Start:13-Jul-2021 Instruction Type:Provider Instructions for Treatment How to Access Health Informa tion Online using Patient Portal and [employer] Apps Indication:Encounter for annual general medical examination with abnormal findings in adult Start:13-Jul-2021 Instruction Type:Patient Education Patient Instructions Indication:Non-smoker Start:09-Jul-2021 Instruction Type:Provider Instructions for Treatment How to Access Health Informa tion Online using Patient Portal and [employer] Indication:Non-smoker Start:09-Jul-2021 Instruction Type:Patient Education Patient Instructions Indication:BMI 20.0-20.9, adult Start:02-Apr-2021 Instruction Type:Provider Instructions for Treatment How to Access Health Informa tion Online using Patient Portal and [employer] Apps Indication:BMI 20.0-20.9, adult Start:02-Apr-2021 Instruction Type:Patient Education Patient Instructions Indication:BMI 20.0-20.9, adult Start:24-Mar-2021 Instruction Type:Provider Instructions for Treatment How to Access Health Informa tion Online using Patient [employer] and [employer] Indication:BMI 20.0-20.9, adult Start:24-Mar-2021 Instruction Type:Patient Education Patient Instructions Indication:Leg cramping Start:04-Feb-2021 Instruction Type:Provider Instructions for Treatment How to Access Health Informa tion Online using Patient Portal and [employer] Apps Indication:Leg cramping Start:04-Feb-2021 Instruction Type:Patient Education Patient Instructions Indication:Fracture of left clavicle with nonunion Start:06-Nov-2020 Instruction Type:Provider Instructions for Treatment How to Access Health Informa tion Online using Patient Portal and [employer] Apps Indication:Fracture of left clavicle with nonunion Start:06-Nov-2020 Instruction Type:Patient Education Patient Instructions Indication:Elevated blood pressure reading Start:27-Oct-2020 Instruction Type:Provider Instructions for Treatment How to Access Health Informa tion Online using Patient Portal and [employer] Indication:Elevated blood pressure reading Start:27-Oct-2020 Instruction Type:Patient Education How to access health informa tion online Indication:Fracture of left clavicle with nonunion Start:01-Sep-2020 Instruction Type:Patient Education How to access health informa tion online - Detail Indication:Fracture of left clavicle with nonunion Start:01-Sep-2020 Instruction Type:Patient Education Patient Instructions Indication:Fracture of left clavicle with nonunion Start:01-Sep-2020 Instruction Type:Provider Instructions for Treatment How to access health informa tion online Indication:Non-smoker Start:07-Jul-2020 Instruction Type:Patient Education How to access health informa tion online - Detail Indication:Non-smoker Start:07-Jul-2020 Instruction Type:Patient Education Patient Instructions Indication:Non-smoker Start:07-Jul-2020 Instruction Type:Provider Instructions for Treatment How to access health informa tion online Indication:Unspecified Diagnosis Start:09-Jun-2020 Instruction Type:Patient Education How to access health informa tion online - Detail Indication:Unspecified Diagnosis Start:09-Jun-2020 Instruction Type:Patient Education Patient Instructions Indication:Unspecified Diagnosis Start:09-Jun-2020 Instruction Type:Provider Instructions for Treatment How to access health informa tion online Indication:BMI 20.0-20.9, adult Start:23-Apr-2020 Instruction Type:Patient Education How to access health informa tion online - Detail Indication:BMI 20.0-20.9, adult Start:23-Apr-2020 Instruction Type:Patient Education Patient Instructions Indication:BMI 20.0-20.9, adult Start:23-Apr-2020 Instruction Type:Provider Instructions for Treatment How to access health informa tion online Indication:Encounter for annual general medical examination with abnormal findings in adult Start:16-Mar-2020 Instruction Type:Patient Education How to access health informa tion online - Detail Indication:Encounter for annual general medical examination with abnormal findings in adult Start:16-Mar-2020 Instruction Type:Patient Education Patient Instructions Indication:Encounter for annual general medical examination with abnormal findings in adult Start:16-Mar-2020 Instruction Type:Provider Instructions for Treatment [facility]; [facility] Work Phone: Instructions* Name Dates Details Patient Instructions Indication:Encounter for annual general medical examination with abnormal findings in adult Start:11-Nov-2021 Instruction Type:Provider Instructions for Treatment How to Access Health Informa tion Online using Patient Portal and [employer] Apps Indication:Encounter for annual general medical examination with abnormal findings in adult Start:11-Nov-2021 Instruction Type:Patient Education Patient Instructions Indication:Encounter for annual general medical examination with abnormal findings in adult Start:13-Jul-2021 Instruction Type:Provider Instructions for Treatment How to Access Health Informa tion Online using Patient Portal and [employer] Apps Indication:Encounter for annual general medical examination with abnormal findings in adult Start:13-Jul-2021 Instruction Type:Patient Education Patient Instructions Indication:Non-smoker Start:09-Jul-2021 Instruction Type:Provider Instructions for Treatment How to Access Health Informa tion Online using Patient Portal and [employer] Apps Indication:Non-smoker Start:09-Jul-2021 Instruction Type:Patient Education Patient Instructions Indication:BMI 20.0-20.9, adult Start:02-Apr-2021 Instruction Type:Provider Instructions for Treatment How to Access Health Informa tion Online using Patient Portal and [employer] Apps Indication:BMI 20.0-20.9, adult Start:02-Apr-2021 Instruction Type:Patient Education Patient Instructions Indication:BMI 20.0-20.9, adult Start:24-Mar-2021 Instruction Type:Provider Instructions for Treatment How to Access Health Informa tion Online using Patient Portal and [employer] Apps Indication:BMI 20.0-20.9, adult Start:24-Mar-2021 Instruction Type:Patient Education Patient Instructions Indication:Leg cramping Start:04-Feb-2021 Instruction Type:Provider Instructions for Treatment How to Access Health Informa tion Online using Patient Portal and [employer] Apps Indication:Leg cramping Start:04-Feb-2021 Instruction Type:Patient Education Patient Instructions Indication:Fracture of left clavicle with nonunion Start:06-Nov-2020 Instruction Type:Provider Instructions for Treatment How to Access Health Informa tion Online using Patient Portal and [employer] Apps Indication:Fracture of left clavicle with nonunion Start:06-Nov-2020 Instruction Type:Patient Education Patient Instructions Indication:Elevated blood pressure reading Start:27-Oct-2020 Instruction Type:Provider Instructions for Treatment How to Access Health Informa tion Online using Patient Portal and [employer] Apps Indication:Elevated blood pressure reading Start:27-Oct-2020 Instruction Type:Patient Education How to access health informa tion online Indication:Fracture of left clavicle with nonunion Start:01-Sep-2020 Instruction Type:Patient Education How to access health informa tion online - Detail Indication:Fracture of left clavicle with nonunion Start:01-Sep-2020 Instruction Type:Patient Education Patient Instructions Indication:Fracture of left clavicle with nonunion Start:01-Sep-2020 Instruction Type:Provider Instructions for Treatment How to access health informa tion online Indication:Non-smoker Start:07-Jul-2020 Instruction Type:Patient Education How to access health informa tion online - Detail Indication:Non-smoker Start:07-Jul-2020 Instruction Type:Patient Education Patient Instructions Indication:Non-smoker Start:07-Jul-2020 Instruction Type:Provider Instructions for Treatment How to access health informa tion online Indication:Unspecified Diagnosis Start:09-Jun-2020 Instruction Type:Patient Education How to access health informa tion online - Detail Indication:Unspecified Diagnosis Start:09-Jun-2020 Instruction Type:Patient Education Patient Instructions Indication:Unspecified Diagnosis Start:09-Jun-2020 Instruction Type:Provider Instructions for Treatment How to access health informa tion online Indication:BMI 20.0-20.9, adult Start:23-Apr-2020 Instruction Type:Patient Education How to access health informa tion online - Detail Indication:BMI 20.0-20.9, adult Start:23-Apr-2020 Instruction Type:Patient Education Patient Instructions Indication:BMI 20.0-20.9, adult Start:23-Apr-2020 Instruction Type:Provider Instructions for Treatment How to access health informa tion online Indication:Encounter for annual general medical examination with abnormal findings in adult Start:16-Mar-2020 Instruction Type:Patient Education How to access health informa tion online - Detail Indication:Encounter for annual general medical examination with abnormal findings in adult Start:16-Mar-2020 Instruction Type:Patient Education Patient Instructions Indication:Encounter for annual general medical examination with abnormal findings in adult Start:16-Mar-2020 Instruction Type:Provider Instructions for Treatment [facility]; [facility] Work Phone: Instructions* Name Dates Details Patient Instructions Indication:Left shoulder pain Start:14-Jan-2022 Instruction Type:Provider Instructions for Treatment How to Access Health Informa tion Online using Patient Portal and [employer] Indication:Left shoulder pain Start:14-Jan-2022 Instruction Type:Patient Education Patient Instructions Indication:Encounter for annual general medical examination with abnormal findings in adult Start:11-Nov-2021 Instruction Type:Provider Instructions for Treatment How to Access Health Informa tion Online using Patient Portal and [employer] Indication:Encounter for annual general medical examination with abnormal findings in adult Start:11-Nov-2021 Instruction Type:Patient Education Patient Instructions Indication:Encounter for annual general medical examination with abnormal findings in adult Start:13-Jul-2021 Instruction Type:Provider Instructions for Treatment How to Access Health Informa tion Online using Patient Portal and [employer] Indication:Encounter for annual general medical examination with abnormal findings in adult Start:13-Jul-2021 Instruction Type:Patient Education Patient Instructions Indication:Non-smoker Start:09-Jul-2021 Instruction Type:Provider Instructions for Treatment How to Access Health Informa tion Online using Patient Portal and [employer] How To [employer] Indication:Non-smoker Start:09-Jul-2021 Instruction Type:Patient Education Patient Instructions Indication:BMI 20.0-20.9, adult Start:02-Apr-2021 Instruction Type:Provider Instructions for Treatment How to Access Health Informa tion Online using Patient Portal and [employer]rd [employer] Indication:BMI 20.0-20.9, adult Start:02-Apr-2021 Instruction Type:Patient Education Patient Instructions Indication:BMI 20.0-20.9, adult Start:24-Mar-2021 Instruction Type:Provider Instructions for Treatment How to Access Health Informa tion Online using Patient Portal and [employer] Indication:BMI 20.0-20.9, adult Start:24-Mar-2021 Instruction Type:Patient Education Patient Instructions Indication:Leg cramping Start:04-Feb-2021 Instruction Type:Provider Instructions for Treatment How to Access Health Informa tion Online using Patient Portal and [employer] Indication:Leg cramping Start:04-Feb-2021 Instruction Type:Patient Education Patient Instructions Indication:Fracture of left clavicle with nonunion Start:06-Nov-2020 Instruction Type:Provider Instructions for Treatment How to Access Health Informa tion Online using Patient Portal and [employer] Indication:Fracture of left clavicle with nonunion Start:06-Nov-2020 Instruction Type:Patient Education Patient Instructions Indication:Elevated blood pressure reading Start:27-Oct-2020 Instruction Type:Provider Instructions for Treatment How to Access Health Informa tion Online using Patient Portal and [employer] Indication:Elevated blood pressure reading Start:27-Oct-2020 Instruction Type:Patient Education How to access health informa tion online Indication:Fracture of left clavicle with nonunion Start:01-Sep-2020 Instruction Type:Patient Education How to access health informa tion online - Detail Indication:Fracture of left clavicle with nonunion Start:01-Sep-2020 Instruction Type:Patient Education Patient Instructions Indication:Fracture of left clavicle with nonunion Start:01-Sep-2020 Instruction Type:Provider Instructions for Treatment How to access health informa tion online Indication:Non-smoker Start:07-Jul-2020 Instruction Type:Patient Education How to access health informa tion online - Detail Indication:Non-smoker Start:07-Jul-2020 Instruction Type:Patient Education Patient Instructions Indication:Non-smoker Start:07-Jul-2020 Instruction Type:Provider Instructions for Treatment How to access health informa tion online Indication:Unspecified Diagnosis Start:09-Jun-2020 Instruction Type:Patient Education How to access health informa tion online - Detail Indication:Unspecified Diagnosis Start:09-Jun-2020 Instruction Type:Patient Education Patient Instructions Indication:Unspecified Diagnosis Start:09-Jun-2020 Instruction Type:Provider Instructions for Treatment How to access health informa tion online Indication:BMI 20.0-20.9, adult Start:23-Apr-2020 Instruction Type:Patient Education How to access health informa tion online - Detail Indication:BMI 20.0-20.9, adult Start:23-Apr-2020 Instruction Type:Patient Education Patient Instructions Indication:BMI 20.0-20.9, adult Start:23-Apr-2020 Instruction Type:Provider Instructions for Treatment How to access health informa tion online Indication:Encounter for annual general medical examination with abnormal findings in adult Start:16-Mar-2020 Instruction Type:Patient Education How to access health informa tion online - Detail Indication:Encounter for annual general medical examination with abnormal findings in adult Start:16-Mar-2020 Instruction Type:Patient Education Patient Instructions Indication:Encounter for annual general medical examination with abnormal findings in adult Start:16-Mar-2020 Instruction Type:Provider Instructions for Treatment [facility]; [facility] Work Phone: Instructions* Name Dates Details Patient Instructions Indication:Non-smoker Start:21-Feb-2022 Instruction Type:Provider Instructions for Treatment How to Access Health Informa tion Online using Patient Portal and [employer] Indication:Non-smoker Start:21-Feb-2022 Instruction Type:Patient Education Patient Instructions Indication:Left shoulder pain Start:14-Jan-2022 Instruction Type:Provider Instructions for Treatment How to Access Health Informa tion Online using Patient Portal and [employer] Indication:Left shoulder pain Start:14-Jan-2022 Instruction Type:Patient Education Patient Instructions Indication:Encounter for annual general medical examination with abnormal findings in adult Start:11-Nov-2021 Instruction Type:Provider Instructions for Treatment How to Access Health Informa tion Online using Patient Portal and [employer] Indication:Encounter for annual general medical examination with abnormal findings in adult Start:11-Nov-2021 Instruction Type:Patient Education Patient Instructions Indication:Encounter for annual general medical examination with abnormal findings in adult Start:13-Jul-2021 Instruction Type:Provider Instructions for Treatment How to Access Health Informa tion Online using Patient Portal and [employer] Indication:Encounter for annual general medical examination with abnormal findings in adult Start:13-Jul-2021 Instruction Type:Patient Education Patient Instructions Indication:Non-smoker Start:09-Jul-2021 Instruction Type:Provider Instructions for Treatment How to Access Health Informa tion Online using Patient Portal and [employer] Indication:Non-smoker Start:09-Jul-2021 Instruction Type:Patient Education Patient Instructions Indication:BMI 20.0-20.9, adult Start:02-Apr-2021 Instruction Type:Provider Instructions for Treatment How to Access Health Informa tion Online using Patient Portal and [employer] Indication:BMI 20.0-20.9, adult Start:02-Apr-2021 Instruction Type:Patient Education Patient Instructions Indication:BMI 20.0-20.9, adult Start:24-Mar-2021 Instruction Type:Provider Instructions for Treatment How to Access Health Informa tion Online using Patient Portal and [employer] Indication:BMI 20.0-20.9, adult Start:24-Mar-2021 Instruction Type:Patient Education Patient Instructions Indication:Leg cramping Start:04-Feb-2021 Instruction Type:Provider Instructions for Treatment How to Access Health Informa tion Online using Patient Portal and [employer] Indication:Leg cramping Start:04-Feb-2021 Instruction Type:Patient Education Patient Instructions Indication:Fracture of left clavicle with nonunion Start:06-Nov-2020 Instruction Type:Provider Instructions for Treatment How to Access Health Informa tion Online using Patient Portal and [employer] Indication:Fracture of left clavicle with nonunion Start:06-Nov-2020 Instruction Type:Patient Education Patient Instructions Indication:Elevated blood pressure reading Start:27-Oct-2020 Instruction Type:Provider Instructions for Treatment How to Access Health Informa tion Online using Patient Portal and [employer] Indication:Elevated blood pressure reading Start:27-Oct-2020 Instruction Type:Patient Education How to access health informa tion online Indication:Fracture of left clavicle with nonunion Start:01-Sep-2020 Instruction Type:Patient Education How to access health informa tion online - Detail Indication:Fracture of left clavicle with nonunion Start:01-Sep-2020 Instruction Type:Patient Education Patient Instructions Indication:Fracture of left clavicle with nonunion Start:01-Sep-2020 Instruction Type:Provider Instructions for Treatment How to access health informa tion online Indication:Non-smoker Start:07-Jul-2020 Instruction Type:Patient Education How to access health informa tion online - Detail Indication:Non-smoker Start:07-Jul-2020 Instruction Type:Patient Education Patient Instructions Indication:Non-smoker Start:07-Jul-2020 Instruction Type:Provider Instructions for Treatment How to access health informa tion online Indication:Unspecified Diagnosis Start:09-Jun-2020 Instruction Type:Patient Education How to access health informa tion online - Detail Indication:Unspecified Diagnosis Start:09-Jun-2020 Instruction Type:Patient Education Patient Instructions Indication:Unspecified Diagnosis Start:09-Jun-2020 Instruction Type:Provider Instructions for Treatment How to access health informa tion online Indication:BMI 20.0-20.9, adult Start:23-Apr-2020 Instruction Type:Patient Education How to access health informa tion online - Detail Indication:BMI 20.0-20.9, adult Start:23-Apr-2020 Instruction Type:Patient Education Patient Instructions Indication:BMI 20.0-20.9, adult Start:23-Apr-2020 Instruction Type:Provider Instructions for Treatment How to access health informa tion online Indication:Encounter for annual general medical examination with abnormal findings in adult Start:16-Mar-2020 Instruction Type:Patient Education How to access health informa tion online - Detail Indication:Encounter for annual general medical examination with abnormal findings in adult Start:16-Mar-2020 Instruction Type:Patient Education Patient Instructions Indication:Encounter for annual general medical examination with abnormal findings in adult Start:16-Mar-2020 Instruction Type:Provider Instructions for Treatment [facility]; [facility] Work Phone: Instructions* Name Dates Details Patient Instructions Indication:Non-smoker Start:21-Feb-2022 Instruction Type:Provider Instructions for Treatment How to Access Health Informa tion Online using Patient Portal and [employer] Indication:Non-smoker Start:21-Feb-2022 Instruction Type:Patient Education Patient Instructions Indication:Left shoulder pain Start:14-Jan-2022 Instruction Type:Provider Instructions for Treatment How to Access Health Informa tion Online using Patient Portal and [employer] Indication:Left shoulder pain Start:14-Jan-2022 Instruction Type:Patient Education Patient Instructions Indication:Encounter for annual general medical examination with abnormal findings in adult Start:11-Nov-2021 Instruction Type:Provider Instructions for Treatment How to Access Health Informa tion Online using Patient Portal and [employer] Indication:Encounter for annual general medical examination with abnormal findings in adult Start:11-Nov-2021 Instruction Type:Patient Education Patient Instructions Indication:Encounter for annual general medical examination with abnormal findings in adult Start:13-Jul-2021 Instruction Type:Provider Instructions for Treatment How to Access Health Informa tion Online using Patient Portal and [employer] Indication:Encounter for annual general medical examination with abnormal findings in adult Start:13-Jul-2021 Instruction Type:Patient Education Patient Instructions Indication:Non-smoker Start:09-Jul-2021 Instruction Type:Provider Instructions for Treatment How to Access Health Informa tion Online using Patient Portal and [employer] Indication:Non-smoker Start:09-Jul-2021 Instruction Type:Patient Education Patient Instructions Indication:BMI 20.0-20.9, adult Start:02-Apr-2021 Instruction Type:Provider Instructions for Treatment How to Access Health Informa tion Online using Patient Portal and [employer] Indication:BMI 20.0-20.9, adult Start:02-Apr-2021 Instruction Type:Patient Education Patient Instructions Indication:BMI 20.0-20.9, adult Start:24-Mar-2021 Instruction Type:Provider Instructions for Treatment How to Access Health Informa tion Online using Patient Portal and [employer] Indication:BMI 20.0-20.9, adult Start:24-Mar-2021 Instruction Type:Patient Education Patient Instructions Indication:Leg cramping Start:04-Feb-2021 Instruction Type:Provider Instructions for Treatment How to Access Health Informa tion Online using Patient Portal and [employer] Indication:Leg cramping Start:04-Feb-2021 Instruction Type:Patient Education Patient Instructions Indication:Fracture of left clavicle with nonunion Start:06-Nov-2020 Instruction Type:Provider Instructions for Treatment How to Access Health Informa tion Online using Patient Portal and [employer] Indication:Fracture of left clavicle with nonunion Start:06-Nov-2020 Instruction Type:Patient Education Patient Instructions Indication:Elevated blood pressure reading Start:27-Oct-2020 Instruction Type:Provider Instructions for Treatment How to Access Health Informa tion Online using Patient Portal and [employer] Indication:Elevated blood pressure reading Start:27-Oct-2020 Instruction Type:Patient Education How to access health informa tion online Indication:Fracture of left clavicle with nonunion Start:01-Sep-2020 Instruction Type:Patient Education How to access health informa tion online - Detail Indication:Fracture of left clavicle with nonunion Start:01-Sep-2020 Instruction Type:Patient Education Patient Instructions Indication:Fracture of left clavicle with nonunion Start:01-Sep-2020 Instruction Type:Provider Instructions for Treatment How to access health informa tion online Indication:Non-smoker Start:07-Jul-2020 Instruction Type:Patient Education How to access health informa tion online - Detail Indication:Non-smoker Start:07-Jul-2020 Instruction Type:Patient Education Patient Instructions Indication:Non-smoker Start:07-Jul-2020 Instruction Type:Provider Instructions for Treatment How to access health informa tion online Indication:Unspecified Diagnosis Start:09-Jun-2020 Instruction Type:Patient Education How to access health informa tion online - Detail Indication:Unspecified Diagnosis Start:09-Jun-2020 Instruction Type:Patient Education Patient Instructions Indication:Unspecified Diagnosis Start:09-Jun-2020 Instruction Type:Provider Instructions for Treatment How to access health informa tion online Indication:BMI 20.0-20.9, adult Start:23-Apr-2020 Instruction Type:Patient Education How to access health informa tion online - Detail Indication:BMI 20.0-20.9, adult Start:23-Apr-2020 Instruction Type:Patient Education Patient Instructions Indication:BMI 20.0-20.9, adult Start:23-Apr-2020 Instruction Type:Provider Instructions for Treatment How to access health informa tion online Indication:Encounter for annual general medical examination with abnormal findings in adult Start:16-Mar-2020 Instruction Type:Patient Education How to access health informa tion online - Detail Indication:Encounter for annual general medical examination with abnormal findings in adult Start:16-Mar-2020 Instruction Type:Patient Education Patient Instructions Indication:Encounter for annual general medical examination with abnormal findings in adult Start:16-Mar-2020 Instruction Type:Provider Instructions for Treatment [facility]; [facility] Work Phone: Instructions* Name Dates Details Patient Instructions Indication:Encounter for annual general medical examination with abnormal findings in adult Start:05-Jul-2022 Instruction Type:Provider Instructions for Treatment How to Access Health Informa tion Online using Patient Portal and [employer] Indication:Encounter for annual general medical examination with abnormal findings in adult Start:05-Jul-2022 Instruction Type:Patient Education Patient Instructions Indication:Non-smoker Start:21-Feb-2022 Instruction Type:Provider Instructions for Treatment How to Access Health Informa tion Online using Patient Portal and [employer] Indication:Non-smoker Start:21-Feb-2022 Instruction Type:Patient Education Patient Instructions Indication:Chronic left shoulder pain Start:14-Jan-2022 Instruction Type:Provider Instructions for Treatment How to Access Health Informa tion Online using Patient Portal and [employer] Indication:Chronic left shoulder pain Start:14-Jan-2022 Instruction Type:Patient Education Patient Instructions Indication:Encounter for annual general medical examination with abnormal findings in adult Start:11-Nov-2021 Instruction Type:Provider Instructions for Treatment How to Access Health Informa tion Online using Patient Portal and [employer] Indication:Encounter for annual general medical examination with abnormal findings in adult Start:11-Nov-2021 Instruction Type:Patient Education Patient Instructions Indication:Encounter for annual general medical examination with abnormal findings in adult Start:13-Jul-2021 Instruction Type:Provider Instructions for Treatment How to Access Health Informa tion Online using Patient Portal and [employer] Indication:Encounter for annual general medical examination with abnormal findings in adult Start:13-Jul-2021 Instruction Type:Patient Education Patient Instructions Indication:Non-smoker Start:09-Jul-2021 Instruction Type:Provider Instructions for Treatment How to Access Health Informa tion Online using Patient Portal and [employer] Indication:Non-smoker Start:09-Jul-2021 Instruction Type:Patient Education Patient Instructions Indication:BMI 20.0-20.9, adult Start:02-Apr-2021 Instruction Type:Provider Instructions for Treatment How to Access Health Informa tion Online using Patient Portal and [employer] Indication:BMI 20.0-20.9, adult Start:02-Apr-2021 Instruction Type:Patient Education Patient Instructions Indication:BMI 20.0-20.9, adult Start:24-Mar-2021 Instruction Type:Provider Instructions for Treatment How to Access Health Informa tion Online using Patient Portal and [employer] Indication:BMI 20.0-20.9, adult Start:24-Mar-2021 Instruction Type:Patient Education Patient Instructions Indication:Leg cramping Start:04-Feb-2021 Instruction Type:Provider Instructions for Treatment How to Access Health Informa tion Online using Patient Portal and [employer] Indication:Leg cramping Start:04-Feb-2021 Instruction Type:Patient Education Patient Instructions Indication:Fracture of left clavicle with nonunion Start:06-Nov-2020 Instruction Type:Provider Instructions for Treatment How to Access Health Informa tion Online using Patient Portal and [employer] Indication:Fracture of left clavicle with nonunion Start:06-Nov-2020 Instruction Type:Patient Education Patient Instructions Indication:Elevated blood pressure reading Start:27-Oct-2020 Instruction Type:Provider Instructions for Treatment How to Access Health Informa tion Online using Patient Portal and [employer] Indication:Elevated blood pressure reading Start:27-Oct-2020 Instruction Type:Patient Education How to access health informa tion online Indication:Fracture of left clavicle with nonunion Start:01-Sep-2020 Instruction Type:Patient Education How to access health informa tion online - Detail Indication:Fracture of left clavicle with nonunion Start:01-Sep-2020 Instruction Type:Patient Education Patient Instructions Indication:Fracture of left clavicle with nonunion Start:01-Sep-2020 Instruction Type:Provider Instructions for Treatment How to access health informa tion online Indication:Non-smoker Start:07-Jul-2020 Instruction Type:Patient Education How to access health informa tion online - Detail Indication:Non-smoker Start:07-Jul-2020 Instruction Type:Patient Education Patient Instructions Indication:Non-smoker Start:07-Jul-2020 Instruction Type:Provider Instructions for Treatment How to access health informa tion online Indication:Unspecified Diagnosis Start:09-Jun-2020 Instruction Type:Patient Education How to access health informa tion online - Detail Indication:Unspecified Diagnosis Start:09-Jun-2020 Instruction Type:Patient Education Patient Instructions Indication:Unspecified Diagnosis Start:09-Jun-2020 Instruction Type:Provider Instructions for Treatment How to access health informa tion online Indication:BMI 20.0-20.9, adult Start:23-Apr-2020 Instruction Type:Patient Education How to access health informa tion online - Detail Indication:BMI 20.0-20.9, adult Start:23-Apr-2020 Instruction Type:Patient Education Patient Instructions Indication:BMI 20.0-20.9, adult Start:23-Apr-2020 Instruction Type:Provider Instructions for Treatment How to access health informa tion online Indication:Encounter for annual general medical examination with abnormal findings in adult Start:16-Mar-2020 Instruction Type:Patient Education How to access health informa tion online - Detail Indication:Encounter for annual general medical examination with abnormal findings in adult Start:16-Mar-2020 Instruction Type:Patient Education Patient Instructions Indication:Encounter for annual general medical examination with abnormal findings in adult Start:16-Mar-2020 Instruction Type:Provider Instructions for Treatment [facility]; [facility] Work Phone: Instructions* Name Dates Details Patient Instructions Indication:Encounter for annual general medical examination with abnormal findings in adult Start:05-Jul-2022 Instruction Type:Provider Instructions for Treatment How to Access Health Informa tion Online using Patient Portal and [employer] Indication:Encounter for annual general medical examination with abnormal findings in adult Start:05-Jul-2022 Instruction Type:Patient Education Patient Instructions Indication:Non-smoker Start:21-Feb-2022 Instruction Type:Provider Instructions for Treatment How to Access Health Informa tion Online using Patient Portal and [employer] Indication:Non-smoker Start:21-Feb-2022 Instruction Type:Patient Education Patient Instructions Indication:Chronic left shoulder pain Start:14-Jan-2022 Instruction Type:Provider Instructions for Treatment How to Access Health Informa tion Online using Patient Portal and [employer] Indication:Chronic left shoulder pain Start:14-Jan-2022 Instruction Type:Patient Education Patient Instructions Indication:Encounter for annual general medical examination with abnormal findings in adult Start:11-Nov-2021 Instruction Type:Provider Instructions for Treatment How to Access Health Informa tion Online using Patient Portal and [employer] Indication:Encounter for annual general medical examination with abnormal findings in adult Start:11-Nov-2021 Instruction Type:Patient Education Patient Instructions Indication:Encounter for annual general medical examination with abnormal findings in adult Start:13-Jul-2021 Instruction Type:Provider Instructions for Treatment How to Access Health Informa tion Online using Patient Portal and [employer] Indication:Encounter for annual general medical examination with abnormal findings in adult Start:13-Jul-2021 Instruction Type:Patient Education Patient Instructions Indication:Non-smoker Start:09-Jul-2021 Instruction Type:Provider Instructions for Treatment How to Access Health Informa tion Online using Patient Portal and [employer] Indication:Non-smoker Start:09-Jul-2021 Instruction Type:Patient Education Patient Instructions Indication:BMI 20.0-20.9, adult Start:02-Apr-2021 Instruction Type:Provider Instructions for Treatment How to Access Health Informa tion Online using Patient Portal and [employer] Indication:BMI 20.0-20.9, adult Start:02-Apr-2021 Instruction Type:Patient Education Patient Instructions Indication:BMI 20.0-20.9, adult Start:24-Mar-2021 Instruction Type:Provider Instructions for Treatment How to Access Health Informa tion Online using Patient Portal and [employer] Indication:BMI 20.0-20.9, adult Start:24-Mar-2021 Instruction Type:Patient Education Patient Instructions Indication:Leg cramping Start:04-Feb-2021 Instruction Type:Provider Instructions for Treatment How to Access Health Informa tion Online using Patient Portal and [employer] Indication:Leg cramping Start:04-Feb-2021 Instruction Type:Patient Education Patient Instructions Indication:Fracture of left clavicle with nonunion Start:06-Nov-2020 Instruction Type:Provider Instructions for Treatment How to Access Health Informa tion Online using Patient Portal and [employer] Indication:Fracture of left clavicle with nonunion Start:06-Nov-2020 Instruction Type:Patient Education Patient Instructions Indication:Elevated blood pressure reading Start:27-Oct-2020 Instruction Type:Provider Instructions for Treatment How to Access Health Informa tion Online using Patient Portal and [employer] Indication:Elevated blood pressure reading Start:27-Oct-2020 Instruction Type:Patient Education How to access health informa tion online Indication:Fracture of left clavicle with nonunion Start:01-Sep-2020 Instruction Type:Patient Education How to access health informa tion online - Detail Indication:Fracture of left clavicle with nonunion Start:01-Sep-2020 Instruction Type:Patient Education Patient Instructions Indication:Fracture of left clavicle with nonunion Start:01-Sep-2020 Instruction Type:Provider Instructions for Treatment How to access health informa tion online Indication:Non-smoker Start:07-Jul-2020 Instruction Type:Patient Education How to access health informa tion online - Detail Indication:Non-smoker Start:07-Jul-2020 Instruction Type:Patient Education Patient Instructions Indication:Non-smoker Start:07-Jul-2020 Instruction Type:Provider Instructions for Treatment How to access health informa tion online Indication:Unspecified Diagnosis Start:09-Jun-2020 Instruction Type:Patient Education How to access health informa tion online - Detail Indication:Unspecified Diagnosis Start:09-Jun-2020 Instruction Type:Patient Education Patient Instructions Indication:Unspecified Diagnosis Start:09-Jun-2020 Instruction Type:Provider Instructions for Treatment How to access health informa tion online Indication:BMI 20.0-20.9, adult Start:23-Apr-2020 Instruction Type:Patient Education How to access health informa tion online - Detail Indication:BMI 20.0-20.9, adult Start:23-Apr-2020 Instruction Type:Patient Education Patient Instructions Indication:BMI 20.0-20.9, adult Start:23-Apr-2020 Instruction Type:Provider Instructions for Treatment How to access health informa tion online Indication:Encounter for annual general medical examination with abnormal findings in adult Start:16-Mar-2020 Instruction Type:Patient Education How to access health informa tion online - Detail Indication:Encounter for annual general medical examination with abnormal findings in adult Start:16-Mar-2020 Instruction Type:Patient Education Patient Instructions Indication:Encounter for annual general medical examination with abnormal findings in adult Start:16-Mar-2020 Instruction Type:Provider Instructions for Treatment [facility]; [facility] Work Phone: Instructions* Name Dates Details How to Access Health Informa tion Online using Patient Portal and [employer] Apps Indication:Non-smoker Start:29-Sep-2022 Instruction Type:Patient Education Patient Instructions Indication:Non-smoker Start:29-Sep-2022 Instruction Type:Provider Instructions for Treatment Patient Instructions Indication:Encounter for annual general medical examination with abnormal findings in adult Start:05-Jul-2022 Instruction Type:Provider Instructions for Treatment How to Access Health Informa tion Online using Patient Portal and [employer] Apps Indication:Encounter for annual general medical examination with abnormal findings in adult Start:05-Jul-2022 Instruction Type:Patient Education Patient Instructions Indication:Non-smoker Start:21-Feb-2022 Instruction Type:Provider Instructions for Treatment How to Access Health Informa tion Online using Patient Portal and [employer] Apps Indication:Non-smoker Start:21-Feb-2022 Instruction Type:Patient Education Patient Instructions Indication:Chronic left shoulder pain Start:14-Jan-2022 Instruction Type:Provider Instructions for Treatment How to Access Health Informa tion Online using Patient Portal and [employer] Indication:Chronic left shoulder pain Start:14-Jan-2022 Instruction Type:Patient Education Patient Instructions Indication:Encounter for annual general medical examination with abnormal findings in adult Start:11-Nov-2021 Instruction Type:Provider Instructions for Treatment How to Access Health Informa tion Online using Patient Portal and [employer] Indication:Encounter for annual general medical examination with abnormal findings in adult Start:11-Nov-2021 Instruction Type:Patient Education Patient Instructions Indication:Encounter for annual general medical examination with abnormal findings in adult Start:13-Jul-2021 Instruction Type:Provider Instructions for Treatment How to Access Health Informa tion Online using Patient Portal and [employer] Apps Indication:Encounter for annual general medical examination with abnormal findings in adult Start:13-Jul-2021 Instruction Type:Patient Education Patient Instructions Indication:Non-smoker Start:09-Jul-2021 Instruction Type:Provider Instructions for Treatment How to Access Health Informa tion Online using Patient Portal and [employer] Indication:Non-smoker Start:09-Jul-2021 Instruction Type:Patient Education Patient Instructions Indication:BMI 20.0-20.9, adult Start:02-Apr-2021 Instruction Type:Provider Instructions for Treatment How to Access Health Informa tion Online using Patient Portal and [employer] Indication:BMI 20.0-20.9, adult Start:02-Apr-2021 Instruction Type:Patient Education Patient Instructions Indication:BMI 20.0-20.9, adult Start:24-Mar-2021 Instruction Type:Provider Instructions for Treatment How to Access Health Informa tion Online using Patient Portal and [employer] Indication:BMI 20.0-20.9, adult Start:24-Mar-2021 Instruction Type:Patient Education Patient Instructions Indication:Leg cramping Start:04-Feb-2021 Instruction Type:Provider Instructions for Treatment How to Access Health Informa tion Online using Patient Portal and [employer] Indication:Leg cramping Start:04-Feb-2021 Instruction Type:Patient Education Patient Instructions Indication:Fracture of left clavicle with nonunion Start:06-Nov-2020 Instruction Type:Provider Instructions for Treatment How to Access Health Informa tion Online using Patient Portal and [employer] Indication:Fracture of left clavicle with nonunion Start:06-Nov-2020 Instruction Type:Patient Education Patient Instructions Indication:Elevated blood pressure reading Start:27-Oct-2020 Instruction Type:Provider Instructions for Treatment How to Access Health Informa tion Online using Patient Portal and [employer] Indication:Elevated blood pressure reading Start:27-Oct-2020 Instruction Type:Patient Education How to access health informa tion online Indication:Fracture of left clavicle with nonunion Start:01-Sep-2020 Instruction Type:Patient Education How to access health informa tion online - Detail Indication:Fracture of left clavicle with nonunion Start:01-Sep-2020 Instruction Type:Patient Education Patient Instructions Indication:Fracture of left clavicle with nonunion Start:01-Sep-2020 Instruction Type:Provider Instructions for Treatment How to access health informa tion online Indication:Non-smoker Start:07-Jul-2020 Instruction Type:Patient Education How to access health informa tion online - Detail Indication:Non-smoker Start:07-Jul-2020 Instruction Type:Patient Education Patient Instructions Indication:Non-smoker Start:07-Jul-2020 Instruction Type:Provider Instructions for Treatment How to access health informa tion online Indication:Unspecified Diagnosis Start:09-Jun-2020 Instruction Type:Patient Education How to access health informa tion online - Detail Indication:Unspecified Diagnosis Start:09-Jun-2020 Instruction Type:Patient Education Patient Instructions Indication:Unspecified Diagnosis Start:09-Jun-2020 Instruction Type:Provider Instructions for Treatment How to access health informa tion online Indication:BMI 20.0-20.9, adult Start:23-Apr-2020 Instruction Type:Patient Education How to access health informa tion online - Detail Indication:BMI 20.0-20.9, adult Start:23-Apr-2020 Instruction Type:Patient Education Patient Instructions Indication:BMI 20.0-20.9, adult Start:23-Apr-2020 Instruction Type:Provider Instructions for Treatment How to access health informa tion online Indication:Encounter for annual general medical examination with abnormal findings in adult Start:16-Mar-2020 Instruction Type:Patient Education How to access health informa tion online - Detail Indication:Encounter for annual general medical examination with abnormal findings in adult Start:16-Mar-2020 Instruction Type:Patient Education Patient Instructions Indication:Encounter for annual general medical examination with abnormal findings in adult Start:16-Mar-2020 Instruction Type:Provider Instructions for Treatment [facility]; [facility] Work Phone: Instructions* Name Dates Details How to Access Health Informa tion Online using Patient Portal and [employer] Apps Indication:Non-smoker Start:29-Sep-2022 Instruction Type:Patient Education Patient Instructions Indication:Non-smoker Start:29-Sep-2022 Instruction Type:Provider Instructions for Treatment Patient Instructions Indication:Encounter for annual general medical examination with abnormal findings in adult Start:05-Jul-2022 Instruction Type:Provider Instructions for Treatment How to Access Health Informa tion Online using Patient Portal and [employer] Apps Indication:Encounter for annual general medical examination with abnormal findings in adult Start:05-Jul-2022 Instruction Type:Patient Education Patient Instructions Indication:Non-smoker Start:21-Feb-2022 Instruction Type:Provider Instructions for Treatment How to Access Health Informa tion Online using Patient Portal and [employer] Apps Indication:Non-smoker Start:21-Feb-2022 Instruction Type:Patient Education Patient Instructions Indication:Chronic left shoulder pain Start:14-Jan-2022 Instruction Type:Provider Instructions for Treatment How to Access Health Informa tion Online using Patient Portal and [employer] Apps Indication:Chronic left shoulder pain Start:14-Jan-2022 Instruction Type:Patient Education Patient Instructions Indication:Encounter for annual general medical examination with abnormal findings in adult Start:11-Nov-2021 Instruction Type:Provider Instructions for Treatment How to Access Health Informa tion Online using Patient Portal and [employer] Apps Indication:Encounter for annual general medical examination with abnormal findings in adult Start:11-Nov-2021 Instruction Type:Patient Education Patient Instructions Indication:Encounter for annual general medical examination with abnormal findings in adult Start:13-Jul-2021 Instruction Type:Provider Instructions for Treatment How to Access Health Informa tion Online using Patient Portal and [employer] Apps Indication:Encounter for annual general medical examination with abnormal findings in adult Start:13-Jul-2021 Instruction Type:Patient Education Patient Instructions Indication:Non-smoker Start:09-Jul-2021 Instruction Type:Provider Instructions for Treatment How to Access Health Informa tion Online using Patient Portal and [employer] Apps Indication:Non-smoker Start:09-Jul-2021 Instruction Type:Patient Education Patient Instructions Indication:BMI 20.0-20.9, adult Start:02-Apr-2021 Instruction Type:Provider Instructions for Treatment How to Access Health Informa tion Online using Patient Portal and [employer] Apps Indication:BMI 20.0-20.9, adult Start:02-Apr-2021 Instruction Type:Patient Education Patient Instructions Indication:BMI 20.0-20.9, adult Start:24-Mar-2021 Instruction Type:Provider Instructions for Treatment How to Access Health Informa tion Online using Patient [employer] and [employer] Indication:BMI 20.0-20.9, adult Start:24-Mar-2021 Instruction Type:Patient Education Patient Instructions Indication:Leg cramping Start:04-Feb-2021 Instruction Type:Provider Instructions for Treatment How to Access Health Informa tion Online using Patient [employer] and [employer] Apps Indication:Leg cramping Start:04-Feb-2021 Instruction Type:Patient Education Patient Instructions Indication:Fracture of left clavicle with nonunion Start:06-Nov-2020 Instruction Type:Provider Instructions for Treatment How to Access Health Informa tion Online using Patient Portal and [employer] Apps Indication:Fracture of left clavicle with nonunion Start:06-Nov-2020 Instruction Type:Patient Education Patient Instructions Indication:Elevated blood pressure reading Start:27-Oct-2020 Instruction Type:Provider Instructions for Treatment How to Access Health Informa tion Online using Patient Portal and [employer] Apps Indication:Elevated blood pressure reading Start:27-Oct-2020 Instruction Type:Patient Education How to access health informa tion online Indication:Fracture of left clavicle with nonunion Start:01-Sep-2020 Instruction Type:Patient Education How to access health informa tion online - Detail Indication:Fracture of left clavicle with nonunion Start:01-Sep-2020 Instruction Type:Patient Education Patient Instructions Indication:Fracture of left clavicle with nonunion Start:01-Sep-2020 Instruction Type:Provider Instructions for Treatment How to access health informa tion online Indication:Non-smoker Start:07-Jul-2020 Instruction Type:Patient Education How to access health informa tion online - Detail Indication:Non-smoker Start:07-Jul-2020 Instruction Type:Patient Education Patient Instructions Indication:Non-smoker Start:07-Jul-2020 Instruction Type:Provider Instructions for Treatment How to access health informa tion online Indication:Unspecified Diagnosis Start:09-Jun-2020 Instruction Type:Patient Education How to access health informa tion online - Detail Indication:Unspecified Diagnosis Start:09-Jun-2020 Instruction Type:Patient Education Patient Instructions Indication:Unspecified Diagnosis Start:09-Jun-2020 Instruction Type:Provider Instructions for Treatment How to access health informa tion online Indication:BMI 20.0-20.9, adult Start:23-Apr-2020 Instruction Type:Patient Education How to access health informa tion online - Detail Indication:BMI 20.0-20.9, adult Start:23-Apr-2020 Instruction Type:Patient Education Patient Instructions Indication:BMI 20.0-20.9, adult Start:23-Apr-2020 Instruction Type:Provider Instructions for Treatment How to access health informa tion online Indication:Encounter for annual general medical examination with abnormal findings in adult Start:16-Mar-2020 Instruction Type:Patient Education How to access health informa tion online - Detail Indication:Encounter for annual general medical examination with abnormal findings in adult Start:16-Mar-2020 Instruction Type:Patient Education Patient Instructions Indication:Encounter for annual general medical examination with abnormal findings in adult Start:16-Mar-2020 Instruction Type:Provider Instructions for Treatment [facility]; [facility] Work Phone: Instructions* Name Dates Details Patient Instructions Indication:BMI 20.0-20.9, adult Start:10-Jan-2023 Instruction Type:Provider Instructions for Treatment How to Access Health Informa tion Online using Patient Portal and [employer] Indication:BMI 20.0-20.9, adult Start:10-Jan-2023 Instruction Type:Patient Education How to Access Health Informa tion Online using Patient Portal and [employer] Indication:Non-smoker Start:29-Sep-2022 Instruction Type:Patient Education Patient Instructions Indication:Non-smoker Start:29-Sep-2022 Instruction Type:Provider Instructions for Treatment Patient Instructions Indication:Encounter for annual general medical examination with abnormal findings in adult Start:05-Jul-2022 Instruction Type:Provider Instructions for Treatment How to Access Health Informa tion Online using Patient Portal and [employer] Indication:Encounter for annual general medical examination with abnormal findings in adult Start:05-Jul-2022 Instruction Type:Patient Education Patient Instructions Indication:Non-smoker Start:21-Feb-2022 Instruction Type:Provider Instructions for Treatment How to Access Health Informa tion Online using Patient Portal and [employer] Indication:Non-smoker Start:21-Feb-2022 Instruction Type:Patient Education Patient Instructions Indication:Chronic left shoulder pain Start:14-Jan-2022 Instruction Type:Provider Instructions for Treatment How to Access Health Informa tion Online using Patient Portal and [employer] Indication:Chronic left shoulder pain Start:14-Jan-2022 Instruction Type:Patient Education Patient Instructions Indication:Encounter for annual general medical examination with abnormal findings in adult Start:11-Nov-2021 Instruction Type:Provider Instructions for Treatment How to Access Health Informa tion Online using Patient Portal and [employer] Indication:Encounter for annual general medical examination with abnormal findings in adult Start:11-Nov-2021 Instruction Type:Patient Education Patient Instructions Indication:Encounter for annual general medical examination with abnormal findings in adult Start:13-Jul-2021 Instruction Type:Provider Instructions for Treatment How to Access Health Informa tion Online using Patient Portal and [employer] Indication:Encounter for annual general medical examination with abnormal findings in adult Start:13-Jul-2021 Instruction Type:Patient Education Patient Instructions Indication:Non-smoker Start:09-Jul-2021 Instruction Type:Provider Instructions for Treatment How to Access Health Informa tion Online using Patient Portal and [employer] Indication:Non-smoker Start:09-Jul-2021 Instruction Type:Patient Education Patient Instructions Indication:BMI 20.0-20.9, adult Start:02-Apr-2021 Instruction Type:Provider Instructions for Treatment How to Access Health Informa tion Online using Patient Portal and [employer] Indication:BMI 20.0-20.9, adult Start:02-Apr-2021 Instruction Type:Patient Education Patient Instructions Indication:BMI 20.0-20.9, adult Start:24-Mar-2021 Instruction Type:Provider Instructions for Treatment How to Access Health Informa tion Online using Patient Portal and [employer] Indication:BMI 20.0-20.9, adult Start:24-Mar-2021 Instruction Type:Patient Education Patient Instructions Indication:Leg cramping Start:04-Feb-2021 Instruction Type:Provider Instructions for Treatment How to Access Health Informa tion Online using Patient Portal and [employer] Indication:Leg cramping Start:04-Feb-2021 Instruction Type:Patient Education Patient Instructions Indication:Fracture of left clavicle with nonunion Start:06-Nov-2020 Instruction Type:Provider Instructions for Treatment How to Access Health Informa tion Online using Patient Portal and [employer] Indication:Fracture of left clavicle with nonunion Start:06-Nov-2020 Instruction Type:Patient Education Patient Instructions Indication:Elevated blood pressure reading Start:27-Oct-2020 Instruction Type:Provider Instructions for Treatment How to Access Health Informa tion Online using Patient Portal and [employer] Indication:Elevated blood pressure reading Start:27-Oct-2020 Instruction Type:Patient Education How to access health informa tion online Indication:Fracture of left clavicle with nonunion Start:01-Sep-2020 Instruction Type:Patient Education How to access health informa tion online - Detail Indication:Fracture of left clavicle with nonunion Start:01-Sep-2020 Instruction Type:Patient Education Patient Instructions Indication:Fracture of left clavicle with nonunion Start:01-Sep-2020 Instruction Type:Provider Instructions for Treatment How to access health informa tion online Indication:Non-smoker Start:07-Jul-2020 Instruction Type:Patient Education How to access health informa tion online - Detail Indication:Non-smoker Start:07-Jul-2020 Instruction Type:Patient Education Patient Instructions Indication:Non-smoker Start:07-Jul-2020 Instruction Type:Provider Instructions for Treatment How to access health informa tion online Indication:Unspecified Diagnosis Start:09-Jun-2020 Instruction Type:Patient Education How to access health informa tion online - Detail Indication:Unspecified Diagnosis Start:09-Jun-2020 Instruction Type:Patient Education Patient Instructions Indication:Unspecified Diagnosis Start:09-Jun-2020 Instruction Type:Provider Instructions for Treatment How to access health informa tion online Indication:BMI 20.0-20.9, adult Start:23-Apr-2020 Instruction Type:Patient Education How to access health informa tion online - Detail Indication:BMI 20.0-20.9, adult Start:23-Apr-2020 Instruction Type:Patient Education Patient Instructions Indication:BMI 20.0-20.9, adult Start:23-Apr-2020 Instruction Type:Provider Instructions for Treatment How to access health informa tion online Indication:Encounter for annual general medical examination with abnormal findings in adult Start:16-Mar-2020 Instruction Type:Patient Education How to access health informa tion online - Detail Indication:Encounter for annual general medical examination with abnormal findings in adult Start:16-Mar-2020 Instruction Type:Patient Education Patient Instructions Indication:Encounter for annual general medical examination with abnormal findings in adult Start:16-Mar-2020 Instruction Type:Provider Instructions for Treatment [facility]; [facility] Work Phone: Instructions* Name Dates Details Patient Instructions Indication:Lymphadenopathy Start:10-Feb-2023 Instruction Type:Provider Instructions for Treatment How to Access Health Informa tion Online using Patient Portal and [employer] Indication:Lymphadenopathy Start:10-Feb-2023 Instruction Type:Patient Education Patient Instructions Indication:BMI 20.0-20.9, adult Start:10-Jan-2023 Instruction Type:Provider Instructions for Treatment How to Access Health Informa tion Online using Patient Portal and [employer] Indication:BMI 20.0-20.9, adult Start:10-Jan-2023 Instruction Type:Patient Education How to Access Health Informa tion Online using Patient Portal and [employer] Indication:Non-smoker Start:29-Sep-2022 Instruction Type:Patient Education Patient Instructions Indication:Non-smoker Start:29-Sep-2022 Instruction Type:Provider Instructions for Treatment Patient Instructions Indication:Encounter for annual general medical examination with abnormal findings in adult Start:05-Jul-2022 Instruction Type:Provider Instructions for Treatment How to Access Health Informa tion Online using Patient Portal and [employer] Indication:Encounter for annual general medical examination with abnormal findings in adult Start:05-Jul-2022 Instruction Type:Patient Education Patient Instructions Indication:Non-smoker Start:21-Feb-2022 Instruction Type:Provider Instructions for Treatment How to Access Health Informa tion Online using Patient Portal and [employer] Indication:Non-smoker Start:21-Feb-2022 Instruction Type:Patient Education Patient Instructions Indication:Chronic left shoulder pain Start:14-Jan-2022 Instruction Type:Provider Instructions for Treatment How to Access Health Informa tion Online using Patient Portal and [employer] Indication:Chronic left shoulder pain Start:14-Jan-2022 Instruction Type:Patient Education Patient Instructions Indication:Encounter for annual general medical examination with abnormal findings in adult Start:11-Nov-2021 Instruction Type:Provider Instructions for Treatment How to Access Health Informa tion Online using Patient Portal and [employer] Indication:Encounter for annual general medical examination with abnormal findings in adult Start:11-Nov-2021 Instruction Type:Patient Education Patient Instructions Indication:Encounter for annual general medical examination with abnormal findings in adult Start:13-Jul-2021 Instruction Type:Provider Instructions for Treatment How to Access Health Informa tion Online using Patient Portal and [employer] Indication:Encounter for annual general medical examination with abnormal findings in adult Start:13-Jul-2021 Instruction Type:Patient Education Patient Instructions Indication:Non-smoker Start:09-Jul-2021 Instruction Type:Provider Instructions for Treatment How to Access Health Informa tion Online using Patient Portal and [employer] Indication:Non-smoker Start:09-Jul-2021 Instruction Type:Patient Education Patient Instructions Indication:BMI 20.0-20.9, adult Start:02-Apr-2021 Instruction Type:Provider Instructions for Treatment How to Access Health Informa tion Online using Patient Portal and [employer] Apps Indication:BMI 20.0-20.9, adult Start:02-Apr-2021 Instruction Type:Patient Education Patient Instructions Indication:BMI 20.0-20.9, adult Start:24-Mar-2021 Instruction Type:Provider Instructions for Treatment How to Access Health Informa tion Online using Patient Portal and [employer] Apps Indication:BMI 20.0-20.9, adult Start:24-Mar-2021 Instruction Type:Patient Education Patient Instructions Indication:Leg cramping Start:04-Feb-2021 Instruction Type:Provider Instructions for Treatment How to Access Health Informa tion Online using Patient Portal and [employer] Apps Indication:Leg cramping Start:04-Feb-2021 Instruction Type:Patient Education Patient Instructions Indication:Fracture of left clavicle with nonunion Start:06-Nov-2020 Instruction Type:Provider Instructions for Treatment How to Access Health Informa tion Online using Patient Portal and [employer] Apps Indication:Fracture of left clavicle with nonunion Start:06-Nov-2020 Instruction Type:Patient Education Patient Instructions Indication:Elevated blood pressure reading Start:27-Oct-2020 Instruction Type:Provider Instructions for Treatment How to Access Health Informa tion Online using Patient Portal and [employer] Indication:Elevated blood pressure reading Start:27-Oct-2020 Instruction Type:Patient Education How to access health informa tion online Indication:Fracture of left clavicle with nonunion Start:01-Sep-2020 Instruction Type:Patient Education How to access health informa tion online - Detail Indication:Fracture of left clavicle with nonunion Start:01-Sep-2020 Instruction Type:Patient Education Patient Instructions Indication:Fracture of left clavicle with nonunion Start:01-Sep-2020 Instruction Type:Provider Instructions for Treatment How to access health informa tion online Indication:Non-smoker Start:07-Jul-2020 Instruction Type:Patient Education How to access health informa tion online - Detail Indication:Non-smoker Start:07-Jul-2020 Instruction Type:Patient Education Patient Instructions Indication:Non-smoker Start:07-Jul-2020 Instruction Type:Provider Instructions for Treatment How to access health informa tion online Indication:Unspecified Diagnosis Start:09-Jun-2020 Instruction Type:Patient Education How to access health informa tion online - Detail Indication:Unspecified Diagnosis Start:09-Jun-2020 Instruction Type:Patient Education Patient Instructions Indication:Unspecified Diagnosis Start:09-Jun-2020 Instruction Type:Provider Instructions for Treatment How to access health informa tion online Indication:BMI 20.0-20.9, adult Start:23-Apr-2020 Instruction Type:Patient Education How to access health informa tion online - Detail Indication:BMI 20.0-20.9, adult Start:23-Apr-2020 Instruction Type:Patient Education Patient Instructions Indication:BMI 20.0-20.9, adult Start:23-Apr-2020 Instruction Type:Provider Instructions for Treatment How to access health informa tion online Indication:Encounter for annual general medical examination with abnormal findings in adult Start:16-Mar-2020 Instruction Type:Patient Education How to access health informa tion online - Detail Indication:Encounter for annual general medical examination with abnormal findings in adult Start:16-Mar-2020 Instruction Type:Patient Education Patient Instructions Indication:Encounter for annual general medical examination with abnormal findings in adult Start:16-Mar-2020 Instruction Type:Provider Instructions for Treatment [facility]; [facility] Work Phone: Instructions* Name Dates Details Patient Instructions Indication:Lymphadenopathy Start:10-Feb-2023 Instruction Type:Provider Instructions for Treatment How to Access Health Informa tion Online using Patient Portal and [employer] Apps Indication:Lymphadenopathy Start:10-Feb-2023 Instruction Type:Patient Education Patient Instructions Indication:BMI 20.0-20.9, adult Start:10-Jan-2023 Instruction Type:Provider Instructions for Treatment How to Access Health Informa tion Online using Patient Portal and [employer] Apps Indication:BMI 20.0-20.9, adult Start:10-Jan-2023 Instruction Type:Patient Education How to Access Health Informa tion Online using Patient Portal and [employer] Apps Indication:Non-smoker Start:29-Sep-2022 Instruction Type:Patient Education Patient Instructions Indication:Non-smoker Start:29-Sep-2022 Instruction Type:Provider Instructions for Treatment Patient Instructions Indication:Encounter for annual general medical examination with abnormal findings in adult Start:05-Jul-2022 Instruction Type:Provider Instructions for Treatment How to Access Health Informa tion Online using Patient Portal and [employer] Indication:Encounter for annual general medical examination with abnormal findings in adult Start:05-Jul-2022 Instruction Type:Patient Education Patient Instructions Indication:Non-smoker Start:21-Feb-2022 Instruction Type:Provider Instructions for Treatment How to Access Health Informa tion Online using Patient Portal and [employer] Apps Indication:Non-smoker Start:21-Feb-2022 Instruction Type:Patient Education Patient Instructions Indication:Chronic left shoulder pain Start:14-Jan-2022 Instruction Type:Provider Instructions for Treatment How to Access Health Informa tion Online using Patient Portal and [employer] Apps Indication:Chronic left shoulder pain Start:14-Jan-2022 Instruction Type:Patient Education Patient Instructions Indication:Encounter for annual general medical examination with abnormal findings in adult Start:11-Nov-2021 Instruction Type:Provider Instructions for Treatment How to Access Health Informa tion Online using Patient Portal and [employer] Apps Indication:Encounter for annual general medical examination with abnormal findings in adult Start:11-Nov-2021 Instruction Type:Patient Education Patient Instructions Indication:Encounter for annual general medical examination with abnormal findings in adult Start:13-Jul-2021 Instruction Type:Provider Instructions for Treatment How to Access Health Informa tion Online using Patient Portal and [employer] Apps Indication:Encounter for annual general medical examination with abnormal findings in adult Start:13-Jul-2021 Instruction Type:Patient Education Patient Instructions Indication:Non-smoker Start:09-Jul-2021 Instruction Type:Provider Instructions for Treatment How to Access Health Informa tion Online using Patient Portal and [employer] Apps Indication:Non-smoker Start:09-Jul-2021 Instruction Type:Patient Education Patient Instructions Indication:BMI 20.0-20.9, adult Start:02-Apr-2021 Instruction Type:Provider Instructions for Treatment How to Access Health Informa tion Online using Patient Portal and [employer] Apps Indication:BMI 20.0-20.9, adult Start:02-Apr-2021 Instruction Type:Patient Education Patient Instructions Indication:BMI 20.0-20.9, adult Start:24-Mar-2021 Instruction Type:Provider Instructions for Treatment How to Access Health Informa tion Online using Patient Portal and [employer] Apps Indication:BMI 20.0-20.9, adult Start:24-Mar-2021 Instruction Type:Patient Education Patient Instructions Indication:Leg cramping Start:04-Feb-2021 Instruction Type:Provider Instructions for Treatment How to Access Health Informa tion Online using Patient Portal and [employer] Apps Indication:Leg cramping Start:04-Feb-2021 Instruction Type:Patient Education Patient Instructions Indication:Fracture of left clavicle with nonunion Start:06-Nov-2020 Instruction Type:Provider Instructions for Treatment How to Access Health Informa tion Online using Patient Portal and [employer] Apps Indication:Fracture of left clavicle with nonunion Start:06-Nov-2020 Instruction Type:Patient Education Patient Instructions Indication:Elevated blood pressure reading Start:27-Oct-2020 Instruction Type:Provider Instructions for Treatment How to Access Health Informa tion Online using Patient Portal and [employer] Apps Indication:Elevated blood pressure reading Start:27-Oct-2020 Instruction Type:Patient Education How to access health informa tion online Indication:Fracture of left clavicle with nonunion Start:01-Sep-2020 Instruction Type:Patient Education How to access health informa tion online - Detail Indication:Fracture of left clavicle with nonunion Start:01-Sep-2020 Instruction Type:Patient Education Patient Instructions Indication:Fracture of left clavicle with nonunion Start:01-Sep-2020 Instruction Type:Provider Instructions for Treatment How to access health informa tion online Indication:Non-smoker Start:07-Jul-2020 Instruction Type:Patient Education How to access health informa tion online - Detail Indication:Non-smoker Start:07-Jul-2020 Instruction Type:Patient Education Patient Instructions Indication:Non-smoker Start:07-Jul-2020 Instruction Type:Provider Instructions for Treatment How to access health informa tion online Indication:Unspecified Diagnosis Start:09-Jun-2020 Instruction Type:Patient Education How to access health informa tion online - Detail Indication:Unspecified Diagnosis Start:09-Jun-2020 Instruction Type:Patient Education Patient Instructions Indication:Unspecified Diagnosis Start:09-Jun-2020 Instruction Type:Provider Instructions for Treatment How to access health informa tion online Indication:BMI 20.0-20.9, adult Start:23-Apr-2020 Instruction Type:Patient Education How to access health informa tion online - Detail Indication:BMI 20.0-20.9, adult Start:23-Apr-2020 Instruction Type:Patient Education Patient Instructions Indication:BMI 20.0-20.9, adult Start:23-Apr-2020 Instruction Type:Provider Instructions for Treatment How to access health informa tion online Indication:Encounter for annual general medical examination with abnormal findings in adult Start:16-Mar-2020 Instruction Type:Patient Education How to access health informa tion online - Detail Indication:Encounter for annual general medical examination with abnormal findings in adult Start:16-Mar-2020 Instruction Type:Patient Education Patient Instructions Indication:Encounter for annual general medical examination with abnormal findings in adult Start:16-Mar-2020 Instruction Type:Provider Instructions for Treatment [facility]; [facility] Work Phone: Instructions* Name Dates Details Patient Instructions Indication:Lymphadenopathy Start:10-Feb-2023 Instruction Type:Provider Instructions for Treatment How to Access Health Informa tion Online using Patient Portal and [employer] Apps Indication:Lymphadenopathy Start:10-Feb-2023 Instruction Type:Patient Education Patient Instructions Indication:BMI 20.0-20.9, adult Start:10-Jan-2023 Instruction Type:Provider Instructions for Treatment How to Access Health Informa tion Online using Patient Portal and [employer] Apps Indication:BMI 20.0-20.9, adult Start:10-Jan-2023 Instruction Type:Patient Education How to Access Health Informa tion Online using Patient Portal and [employer] Apps Indication:Non-smoker Start:29-Sep-2022 Instruction Type:Patient Education Patient Instructions Indication:Non-smoker Start:29-Sep-2022 Instruction Type:Provider Instructions for Treatment Patient Instructions Indication:Encounter for annual general medical examination with abnormal findings in adult Start:05-Jul-2022 Instruction Type:Provider Instructions for Treatment How to Access Health Informa tion Online using Patient Portal and [employer] Apps Indication:Encounter for annual general medical examination with abnormal findings in adult Start:05-Jul-2022 Instruction Type:Patient Education Patient Instructions Indication:Non-smoker Start:21-Feb-2022 Instruction Type:Provider Instructions for Treatment How to Access Health Informa tion Online using Patient Portal and [employer] Apps Indication:Non-smoker Start:21-Feb-2022 Instruction Type:Patient Education Patient Instructions Indication:Chronic left shoulder pain Start:14-Jan-2022 Instruction Type:Provider Instructions for Treatment How to Access Health Informa tion Online using Patient Portal and [employer] Apps Indication:Chronic left shoulder pain Start:14-Jan-2022 Instruction Type:Patient Education Patient Instructions Indication:Encounter for annual general medical examination with abnormal findings in adult Start:11-Nov-2021 Instruction Type:Provider Instructions for Treatment How to Access Health Informa tion Online using Patient Portal and [employer] Apps Indication:Encounter for annual general medical examination with abnormal findings in adult Start:11-Nov-2021 Instruction Type:Patient Education Patient Instructions Indication:Encounter for annual general medical examination with abnormal findings in adult Start:13-Jul-2021 Instruction Type:Provider Instructions for Treatment How to Access Health Informa tion Online using Patient Portal and [employer] Apps Indication:Encounter for annual general medical examination with abnormal findings in adult Start:13-Jul-2021 Instruction Type:Patient Education Patient Instructions Indication:Non-smoker Start:09-Jul-2021 Instruction Type:Provider Instructions for Treatment How to Access Health Informa tion Online using Patient Portal and [employer] Apps Indication:Non-smoker Start:09-Jul-2021 Instruction Type:Patient Education Patient Instructions Indication:BMI 20.0-20.9, adult Start:02-Apr-2021 Instruction Type:Provider Instructions for Treatment How to Access Health Informa tion Online using Patient Portal and [employer] Apps Indication:BMI 20.0-20.9, adult Start:02-Apr-2021 Instruction Type:Patient Education Patient Instructions Indication:BMI 20.0-20.9, adult Start:24-Mar-2021 Instruction Type:Provider Instructions for Treatment How to Access Health Informa tion Online using Patient Portal and [employer] Apps Indication:BMI 20.0-20.9, adult Start:24-Mar-2021 Instruction Type:Patient Education Patient Instructions Indication:Leg cramping Start:04-Feb-2021 Instruction Type:Provider Instructions for Treatment How to Access Health Informa tion Online using Patient Portal and [employer] Indication:Leg cramping Start:04-Feb-2021 Instruction Type:Patient Education Patient Instructions Indication:Fracture of left clavicle with nonunion Start:06-Nov-2020 Instruction Type:Provider Instructions for Treatment How to Access Health Informa tion Online using Patient Portal and [employer] Indication:Fracture of left clavicle with nonunion Start:06-Nov-2020 Instruction Type:Patient Education Patient Instructions Indication:Elevated blood pressure reading Start:27-Oct-2020 Instruction Type:Provider Instructions for Treatment How to Access Health Informa tion Online using Patient Portal and [employer] Apps Indication:Elevated blood pressure reading Start:27-Oct-2020 Instruction Type:Patient Education How to access health informa tion online Indication:Fracture of left clavicle with nonunion Start:01-Sep-2020 Instruction Type:Patient Education How to access health informa tion online - Detail Indication:Fracture of left clavicle with nonunion Start:01-Sep-2020 Instruction Type:Patient Education Patient Instructions Indication:Fracture of left clavicle with nonunion Start:01-Sep-2020 Instruction Type:Provider Instructions for Treatment How to access health informa tion online Indication:Non-smoker Start:07-Jul-2020 Instruction Type:Patient Education How to access health informa tion online - Detail Indication:Non-smoker Start:07-Jul-2020 Instruction Type:Patient Education Patient Instructions Indication:Non-smoker Start:07-Jul-2020 Instruction Type:Provider Instructions for Treatment How to access health informa tion online Indication:Unspecified Diagnosis Start:09-Jun-2020 Instruction Type:Patient Education How to access health informa tion online - Detail Indication:Unspecified Diagnosis Start:09-Jun-2020 Instruction Type:Patient Education Patient Instructions Indication:Unspecified Diagnosis Start:09-Jun-2020 Instruction Type:Provider Instructions for Treatment How to access health informa tion online Indication:BMI 20.0-20.9, adult Start:23-Apr-2020 Instruction Type:Patient Education How to access health informa tion online - Detail Indication:BMI 20.0-20.9, adult Start:23-Apr-2020 Instruction Type:Patient Education Patient Instructions Indication:BMI 20.0-20.9, adult Start:23-Apr-2020 Instruction Type:Provider Instructions for Treatment How to access health informa tion online Indication:Encounter for annual general medical examination with abnormal findings in adult Start:16-Mar-2020 Instruction Type:Patient Education How to access health informa tion online - Detail Indication:Encounter for annual general medical examination with abnormal findings in adult Start:16-Mar-2020 Instruction Type:Patient Education Patient Instructions Indication:Encounter for annual general medical examination with abnormal findings in adult Start:16-Mar-2020 Instruction Type:Provider Instructions for Treatment [facility]; [facility] Work Phone: Instructions* Name Dates Details Patient Instructions Indication:Lymphadenopathy Start:10-Feb-2023 Instruction Type:Provider Instructions for Treatment How to Access Health Informa tion Online using Patient Portal and [employer] Apps Indication:Lymphadenopathy Start:10-Feb-2023 Instruction Type:Patient Education Patient Instructions Indication:BMI 20.0-20.9, adult Start:10-Jan-2023 Instruction Type:Provider Instructions for Treatment How to Access Health Informa tion Online using Patient Portal and [employer] Apps Indication:BMI 20.0-20.9, adult Start:10-Jan-2023 Instruction Type:Patient Education How to Access Health Informa tion Online using Patient Portal and [employer] Indication:Non-smoker Start:29-Sep-2022 Instruction Type:Patient Education Patient Instructions Indication:Non-smoker Start:29-Sep-2022 Instruction Type:Provider Instructions for Treatment Patient Instructions Indication:Encounter for annual general medical examination with abnormal findings in adult Start:05-Jul-2022 Instruction Type:Provider Instructions for Treatment How to Access Health Informa tion Online using Patient Portal and [employer] Apps Indication:Encounter for annual general medical examination with abnormal findings in adult Start:05-Jul-2022 Instruction Type:Patient Education Patient Instructions Indication:Non-smoker Start:21-Feb-2022 Instruction Type:Provider Instructions for Treatment How to Access Health Informa tion Online using Patient Portal and [employer] Apps Indication:Non-smoker Start:21-Feb-2022 Instruction Type:Patient Education Patient Instructions Indication:Chronic left shoulder pain Start:14-Jan-2022 Instruction Type:Provider Instructions for Treatment How to Access Health Informa tion Online using Patient Portal and [employer] Apps Indication:Chronic left shoulder pain Start:14-Jan-2022 Instruction Type:Patient Education Patient Instructions Indication:Encounter for annual general medical examination with abnormal findings in adult Start:11-Nov-2021 Instruction Type:Provider Instructions for Treatment How to Access Health Informa tion Online using Patient Portal and [employer] Apps Indication:Encounter for annual general medical examination with abnormal findings in adult Start:11-Nov-2021 Instruction Type:Patient Education Patient Instructions Indication:Encounter for annual general medical examination with abnormal findings in adult Start:13-Jul-2021 Instruction Type:Provider Instructions for Treatment How to Access Health Informa tion Online using Patient Portal and [employer] Apps Indication:Encounter for annual general medical examination with abnormal findings in adult Start:13-Jul-2021 Instruction Type:Patient Education Patient Instructions Indication:Non-smoker Start:09-Jul-2021 Instruction Type:Provider Instructions for Treatment How to Access Health Informa tion Online using Patient Portal and [employer] Apps Indication:Non-smoker Start:09-Jul-2021 Instruction Type:Patient Education Patient Instructions Indication:BMI 20.0-20.9, adult Start:02-Apr-2021 Instruction Type:Provider Instructions for Treatment How to Access Health Informa tion Online using Patient Portal and [employer] Apps Indication:BMI 20.0-20.9, adult Start:02-Apr-2021 Instruction Type:Patient Education Patient Instructions Indication:BMI 20.0-20.9, adult Start:24-Mar-2021 Instruction Type:Provider Instructions for Treatment How to Access Health Informa tion Online using Patient Portal and [employer] Apps Indication:BMI 20.0-20.9, adult Start:24-Mar-2021 Instruction Type:Patient Education Patient Instructions Indication:Leg cramping Start:04-Feb-2021 Instruction Type:Provider Instructions for Treatment How to Access Health Informa tion Online using Patient Portal and [employer] Apps Indication:Leg cramping Start:04-Feb-2021 Instruction Type:Patient Education Patient Instructions Indication:Fracture of left clavicle with nonunion Start:06-Nov-2020 Instruction Type:Provider Instructions for Treatment How to Access Health Informa tion Online using Patient Portal and [employer] Apps Indication:Fracture of left clavicle with nonunion Start:06-Nov-2020 Instruction Type:Patient Education Patient Instructions Indication:Elevated blood pressure reading Start:27-Oct-2020 Instruction Type:Provider Instructions for Treatment How to Access Health Informa tion Online using Patient Portal and [employer] Apps Indication:Elevated blood pressure reading Start:27-Oct-2020 Instruction Type:Patient Education How to access health informa tion online Indication:Fracture of left clavicle with nonunion Start:01-Sep-2020 Instruction Type:Patient Education How to access health informa tion online - Detail Indication:Fracture of left clavicle with nonunion Start:01-Sep-2020 Instruction Type:Patient Education Patient Instructions Indication:Fracture of left clavicle with nonunion Start:01-Sep-2020 Instruction Type:Provider Instructions for Treatment How to access health informa tion online Indication:Non-smoker Start:07-Jul-2020 Instruction Type:Patient Education How to access health informa tion online - Detail Indication:Non-smoker Start:07-Jul-2020 Instruction Type:Patient Education Patient Instructions Indication:Non-smoker Start:07-Jul-2020 Instruction Type:Provider Instructions for Treatment How to access health informa tion online Indication:Unspecified Diagnosis Start:09-Jun-2020 Instruction Type:Patient Education How to access health informa tion online - Detail Indication:Unspecified Diagnosis Start:09-Jun-2020 Instruction Type:Patient Education Patient Instructions Indication:Unspecified Diagnosis Start:09-Jun-2020 Instruction Type:Provider Instructions for Treatment How to access health informa tion online Indication:BMI 20.0-20.9, adult Start:23-Apr-2020 Instruction Type:Patient Education How to access health informa tion online - Detail Indication:BMI 20.0-20.9, adult Start:23-Apr-2020 Instruction Type:Patient Education Patient Instructions Indication:BMI 20.0-20.9, adult Start:23-Apr-2020 Instruction Type:Provider Instructions for Treatment How to access health informa tion online Indication:Encounter for annual general medical examination with abnormal findings in adult Start:16-Mar-2020 Instruction Type:Patient Education How to access health informa tion online - Detail Indication:Encounter for annual general medical examination with abnormal findings in adult Start:16-Mar-2020 Instruction Type:Patient Education Patient Instructions Indication:Encounter for annual general medical examination with abnormal findings in adult Start:16-Mar-2020 Instruction Type:Provider Instructions for Treatment [facility]; [facility] Work Phone: Instructions* Name Dates Details Patient Instructions Indication:Lymphadenopathy Start:10-Feb-2023 Instruction Type:Provider Instructions for Treatment How to Access Health Informa tion Online using Patient Portal and [employer] Indication:Lymphadenopathy Start:10-Feb-2023 Instruction Type:Patient Education Patient Instructions Indication:BMI 20.0-20.9, adult Start:10-Jan-2023 Instruction Type:Provider Instructions for Treatment How to Access Health Informa tion Online using Patient Portal and [employer] Indication:BMI 20.0-20.9, adult Start:10-Jan-2023 Instruction Type:Patient Education How to Access Health Informa tion Online using Patient Portal and [employer] Indication:Non-smoker Start:29-Sep-2022 Instruction Type:Patient Education Patient Instructions Indication:Non-smoker Start:29-Sep-2022 Instruction Type:Provider Instructions for Treatment Patient Instructions Indication:Encounter for annual general medical examination with abnormal findings in adult Start:05-Jul-2022 Instruction Type:Provider Instructions for Treatment How to Access Health Informa tion Online using Patient Portal and [employer] Indication:Encounter for annual general medical examination with abnormal findings in adult Start:05-Jul-2022 Instruction Type:Patient Education Patient Instructions Indication:Non-smoker Start:21-Feb-2022 Instruction Type:Provider Instructions for Treatment How to Access Health Informa tion Online using Patient Portal and [employer] Indication:Non-smoker Start:21-Feb-2022 Instruction Type:Patient Education Patient Instructions Indication:Chronic left shoulder pain Start:14-Jan-2022 Instruction Type:Provider Instructions for Treatment How to Access Health Informa tion Online using Patient Portal and [employer] Indication:Chronic left shoulder pain Start:14-Jan-2022 Instruction Type:Patient Education Patient Instructions Indication:Encounter for annual general medical examination with abnormal findings in adult Start:11-Nov-2021 Instruction Type:Provider Instructions for Treatment How to Access Health Informa tion Online using Patient Portal and [employer] Indication:Encounter for annual general medical examination with abnormal findings in adult Start:11-Nov-2021 Instruction Type:Patient Education Patient Instructions Indication:Encounter for annual general medical examination with abnormal findings in adult Start:13-Jul-2021 Instruction Type:Provider Instructions for Treatment How to Access Health Informa tion Online using Patient Portal and [employer] Indication:Encounter for annual general medical examination with abnormal findings in adult Start:13-Jul-2021 Instruction Type:Patient Education Patient Instructions Indication:Non-smoker Start:09-Jul-2021 Instruction Type:Provider Instructions for Treatment How to Access Health Informa tion Online using Patient Portal and [employer] Indication:Non-smoker Start:09-Jul-2021 Instruction Type:Patient Education Patient Instructions Indication:BMI 20.0-20.9, adult Start:02-Apr-2021 Instruction Type:Provider Instructions for Treatment How to Access Health Informa tion Online using Patient Portal and [employer] Indication:BMI 20.0-20.9, adult Start:02-Apr-2021 Instruction Type:Patient Education Patient Instructions Indication:BMI 20.0-20.9, adult Start:24-Mar-2021 Instruction Type:Provider Instructions for Treatment How to Access Health Informa tion Online using Patient Portal and [employer] Indication:BMI 20.0-20.9, adult Start:24-Mar-2021 Instruction Type:Patient Education Patient Instructions Indication:Leg cramping Start:04-Feb-2021 Instruction Type:Provider Instructions for Treatment How to Access Health Informa tion Online using Patient Portal and [employer] Indication:Leg cramping Start:04-Feb-2021 Instruction Type:Patient Education Patient Instructions Indication:Fracture of left clavicle with nonunion Start:06-Nov-2020 Instruction Type:Provider Instructions for Treatment How to Access Health Informa tion Online using Patient Portal and [employer] Indication:Fracture of left clavicle with nonunion Start:06-Nov-2020 Instruction Type:Patient Education Patient Instructions Indication:Elevated blood pressure reading Start:27-Oct-2020 Instruction Type:Provider Instructions for Treatment How to Access Health Informa tion Online using Patient Portal and [employer] Indication:Elevated blood pressure reading Start:27-Oct-2020 Instruction Type:Patient Education How to access health informa tion online Indication:Fracture of left clavicle with nonunion Start:01-Sep-2020 Instruction Type:Patient Education How to access health informa tion online - Detail Indication:Fracture of left clavicle with nonunion Start:01-Sep-2020 Instruction Type:Patient Education Patient Instructions Indication:Fracture of left clavicle with nonunion Start:01-Sep-2020 Instruction Type:Provider Instructions for Treatment How to access health informa tion online Indication:Non-smoker Start:07-Jul-2020 Instruction Type:Patient Education How to access health informa tion online - Detail Indication:Non-smoker Start:07-Jul-2020 Instruction Type:Patient Education Patient Instructions Indication:Non-smoker Start:07-Jul-2020 Instruction Type:Provider Instructions for Treatment How to access health informa tion online Indication:Unspecified Diagnosis Start:09-Jun-2020 Instruction Type:Patient Education How to access health informa tion online - Detail Indication:Unspecified Diagnosis Start:09-Jun-2020 Instruction Type:Patient Education Patient Instructions Indication:Unspecified Diagnosis Start:09-Jun-2020 Instruction Type:Provider Instructions for Treatment How to access health informa tion online Indication:BMI 20.0-20.9, adult Start:23-Apr-2020 Instruction Type:Patient Education How to access health informa tion online - Detail Indication:BMI 20.0-20.9, adult Start:23-Apr-2020 Instruction Type:Patient Education Patient Instructions Indication:BMI 20.0-20.9, adult Start:23-Apr-2020 Instruction Type:Provider Instructions for Treatment How to access health informa tion online Indication:Encounter for annual general medical examination with abnormal findings in adult Start:16-Mar-2020 Instruction Type:Patient Education How to access health informa tion online - Detail Indication:Encounter for annual general medical examination with abnormal findings in adult Start:16-Mar-2020 Instruction Type:Patient Education Patient Instructions Indication:Encounter for annual general medical examination with abnormal findings in adult Start:16-Mar-2020 Instruction Type:Provider Instructions for Treatment [facility]; [facility] Work Phone: Instructions* Name Dates Details Patient Instructions Indication:Lymphadenopathy Start:10-Feb-2023 Instruction Type:Provider Instructions for Treatment How to Access Health Informa tion Online using Patient Portal and [employer] Indication:Lymphadenopathy Start:10-Feb-2023 Instruction Type:Patient Education Patient Instructions Indication:BMI 20.0-20.9, adult Start:10-Jan-2023 Instruction Type:Provider Instructions for Treatment How to Access Health Informa tion Online using Patient Portal and [employer] Indication:BMI 20.0-20.9, adult Start:10-Jan-2023 Instruction Type:Patient Education How to Access Health Informa tion Online using Patient Portal and [employer] Indication:Non-smoker Start:29-Sep-2022 Instruction Type:Patient Education Patient Instructions Indication:Non-smoker Start:29-Sep-2022 Instruction Type:Provider Instructions for Treatment Patient Instructions Indication:Encounter for annual general medical examination with abnormal findings in adult Start:05-Jul-2022 Instruction Type:Provider Instructions for Treatment How to Access Health Informa tion Online using Patient Portal and [employer] Indication:Encounter for annual general medical examination with abnormal findings in adult Start:05-Jul-2022 Instruction Type:Patient Education Patient Instructions Indication:Non-smoker Start:21-Feb-2022 Instruction Type:Provider Instructions for Treatment How to Access Health Informa tion Online using Patient Portal and [employer] Indication:Non-smoker Start:21-Feb-2022 Instruction Type:Patient Education Patient Instructions Indication:Chronic left shoulder pain Start:14-Jan-2022 Instruction Type:Provider Instructions for Treatment How to Access Health Informa tion Online using Patient Portal and [employer] Indication:Chronic left shoulder pain Start:14-Jan-2022 Instruction Type:Patient Education Patient Instructions Indication:Encounter for annual general medical examination with abnormal findings in adult Start:11-Nov-2021 Instruction Type:Provider Instructions for Treatment How to Access Health Informa tion Online using Patient Portal and [employer] Indication:Encounter for annual general medical examination with abnormal findings in adult Start:11-Nov-2021 Instruction Type:Patient Education Patient Instructions Indication:Encounter for annual general medical examination with abnormal findings in adult Start:13-Jul-2021 Instruction Type:Provider Instructions for Treatment How to Access Health Informa tion Online using Patient Portal and [employer] Indication:Encounter for annual general medical examination with abnormal findings in adult Start:13-Jul-2021 Instruction Type:Patient Education Patient Instructions Indication:Non-smoker Start:09-Jul-2021 Instruction Type:Provider Instructions for Treatment How to Access Health Informa tion Online using Patient Portal and [employer] Indication:Non-smoker Start:09-Jul-2021 Instruction Type:Patient Education Patient Instructions Indication:BMI 20.0-20.9, adult Start:02-Apr-2021 Instruction Type:Provider Instructions for Treatment How to Access Health Informa tion Online using Patient Portal and [employer] Indication:BMI 20.0-20.9, adult Start:02-Apr-2021 Instruction Type:Patient Education Patient Instructions Indication:BMI 20.0-20.9, adult Start:24-Mar-2021 Instruction Type:Provider Instructions for Treatment How to Access Health Informa tion Online using Patient Portal and [employer] Indication:BMI 20.0-20.9, adult Start:24-Mar-2021 Instruction Type:Patient Education Patient Instructions Indication:Leg cramping Start:04-Feb-2021 Instruction Type:Provider Instructions for Treatment How to Access Health Informa tion Online using Patient Portal and [employer] Indication:Leg cramping Start:04-Feb-2021 Instruction Type:Patient Education Patient Instructions Indication:Fracture of left clavicle with nonunion Start:06-Nov-2020 Instruction Type:Provider Instructions for Treatment How to Access Health Informa tion Online using Patient Portal and [employer] Indication:Fracture of left clavicle with nonunion Start:06-Nov-2020 Instruction Type:Patient Education Patient Instructions Indication:Elevated blood pressure reading Start:27-Oct-2020 Instruction Type:Provider Instructions for Treatment How to Access Health Informa tion Online using Patient Portal and [employer] Indication:Elevated blood pressure reading Start:27-Oct-2020 Instruction Type:Patient Education How to access health informa tion online Indication:Fracture of left clavicle with nonunion Start:01-Sep-2020 Instruction Type:Patient Education How to access health informa tion online - Detail Indication:Fracture of left clavicle with nonunion Start:01-Sep-2020 Instruction Type:Patient Education Patient Instructions Indication:Fracture of left clavicle with nonunion Start:01-Sep-2020 Instruction Type:Provider Instructions for Treatment How to access health informa tion online Indication:Non-smoker Start:07-Jul-2020 Instruction Type:Patient Education How to access health informa tion online - Detail Indication:Non-smoker Start:07-Jul-2020 Instruction Type:Patient Education Patient Instructions Indication:Non-smoker Start:07-Jul-2020 Instruction Type:Provider Instructions for Treatment How to access health informa tion online Indication:Unspecified Diagnosis Start:09-Jun-2020 Instruction Type:Patient Education How to access health informa tion online - Detail Indication:Unspecified Diagnosis Start:09-Jun-2020 Instruction Type:Patient Education Patient Instructions Indication:Unspecified Diagnosis Start:09-Jun-2020 Instruction Type:Provider Instructions for Treatment How to access health informa tion online Indication:BMI 20.0-20.9, adult Start:23-Apr-2020 Instruction Type:Patient Education How to access health informa tion online - Detail Indication:BMI 20.0-20.9, adult Start:23-Apr-2020 Instruction Type:Patient Education Patient Instructions Indication:BMI 20.0-20.9, adult Start:23-Apr-2020 Instruction Type:Provider Instructions for Treatment How to access health informa tion online Indication:Encounter for annual general medical examination with abnormal findings in adult Start:16-Mar-2020 Instruction Type:Patient Education How to access health informa tion online - Detail Indication:Encounter for annual general medical examination with abnormal findings in adult Start:16-Mar-2020 Instruction Type:Patient Education Patient Instructions Indication:Encounter for annual general medical examination with abnormal findings in adult Start:16-Mar-2020 Instruction Type:Provider Instructions for Treatment [facility]; [facility] Work Phone: Instructions* Name Dates Details Patient Instructions Indication:BMI 20.0-20.9, adult Start:10-Jul-2023 Instruction Type:Provider Instructions for Treatment How to Access Health Informa tion Online using Patient Portal and [employer] Indication:BMI 20.0-20.9, adult Start:10-Jul-2023 Instruction Type:Patient Education Patient Instructions Indication:Lymphadenopathy Start:10-Feb-2023 Instruction Type:Provider Instructions for Treatment How to Access Health Informa tion Online using Patient Portal and [employer] Indication:Lymphadenopathy Start:10-Feb-2023 Instruction Type:Patient Education Patient Instructions Indication:BMI 20.0-20.9, adult Start:10-Jan-2023 Instruction Type:Provider Instructions for Treatment How to Access Health Informa tion Online using Patient Portal and [employer] Indication:BMI 20.0-20.9, adult Start:10-Jan-2023 Instruction Type:Patient Education How to Access Health Informa tion Online using Patient Portal and [employer] Indication:Non-smoker Start:29-Sep-2022 Instruction Type:Patient Education Patient Instructions Indication:Non-smoker Start:29-Sep-2022 Instruction Type:Provider Instructions for Treatment Patient Instructions Indication:Encounter for annual general medical examination with abnormal findings in adult Start:05-Jul-2022 Instruction Type:Provider Instructions for Treatment How to Access Health Informa tion Online using Patient Portal and [employer] Indication:Encounter for annual general medical examination with abnormal findings in adult Start:05-Jul-2022 Instruction Type:Patient Education Patient Instructions Indication:Non-smoker Start:21-Feb-2022 Instruction Type:Provider Instructions for Treatment How to Access Health Informa tion Online using Patient Portal and [employer] Indication:Non-smoker Start:21-Feb-2022 Instruction Type:Patient Education Patient Instructions Indication:Chronic left shoulder pain Start:14-Jan-2022 Instruction Type:Provider Instructions for Treatment How to Access Health Informa tion Online using Patient Portal and [employer] Indication:Chronic left shoulder pain Start:14-Jan-2022 Instruction Type:Patient Education Patient Instructions Indication:Encounter for annual general medical examination with abnormal findings in adult Start:11-Nov-2021 Instruction Type:Provider Instructions for Treatment How to Access Health Informa tion Online using Patient Portal and [employer] Indication:Encounter for annual general medical examination with abnormal findings in adult Start:11-Nov-2021 Instruction Type:Patient Education Patient Instructions Indication:Encounter for annual general medical examination with abnormal findings in adult Start:13-Jul-2021 Instruction Type:Provider Instructions for Treatment How to Access Health Informa tion Online using Patient Portal and [employer] Indication:Encounter for annual general medical examination with abnormal findings in adult Start:13-Jul-2021 Instruction Type:Patient Education Patient Instructions Indication:Non-smoker Start:09-Jul-2021 Instruction Type:Provider Instructions for Treatment How to Access Health Informa tion Online using Patient Portal and [employer] Indication:Non-smoker Start:09-Jul-2021 Instruction Type:Patient Education Patient Instructions Indication:BMI 20.0-20.9, adult Start:02-Apr-2021 Instruction Type:Provider Instructions for Treatment How to Access Health Informa tion Online using Patient Portal and [employer] Indication:BMI 20.0-20.9, adult Start:02-Apr-2021 Instruction Type:Patient Education Patient Instructions Indication:BMI 20.0-20.9, adult Start:24-Mar-2021 Instruction Type:Provider Instructions for Treatment How to Access Health Informa tion Online using Patient Portal and [employer] Indication:BMI 20.0-20.9, adult Start:24-Mar-2021 Instruction Type:Patient Education Patient Instructions Indication:Leg cramping Start:04-Feb-2021 Instruction Type:Provider Instructions for Treatment How to Access Health Informa tion Online using Patient Portal and [employer] Indication:Leg cramping Start:04-Feb-2021 Instruction Type:Patient Education Patient Instructions Indication:Fracture of left clavicle with nonunion Start:06-Nov-2020 Instruction Type:Provider Instructions for Treatment How to Access Health Informa tion Online using Patient Portal and [employer] Indication:Fracture of left clavicle with nonunion Start:06-Nov-2020 Instruction Type:Patient Education Patient Instructions Indication:Elevated blood pressure reading Start:27-Oct-2020 Instruction Type:Provider Instructions for Treatment How to Access Health Informa tion Online using Patient Portal and [employer] Indication:Elevated blood pressure reading Start:27-Oct-2020 Instruction Type:Patient Education How to access health informa tion online Indication:Fracture of left clavicle with nonunion Start:01-Sep-2020 Instruction Type:Patient Education How to access health informa tion online - Detail Indication:Fracture of left clavicle with nonunion Start:01-Sep-2020 Instruction Type:Patient Education Patient Instructions Indication:Fracture of left clavicle with nonunion Start:01-Sep-2020 Instruction Type:Provider Instructions for Treatment How to access health informa tion online Indication:Non-smoker Start:07-Jul-2020 Instruction Type:Patient Education How to access health informa tion online - Detail Indication:Non-smoker Start:07-Jul-2020 Instruction Type:Patient Education Patient Instructions Indication:Non-smoker Start:07-Jul-2020 Instruction Type:Provider Instructions for Treatment How to access health informa tion online Indication:Unspecified Diagnosis Start:09-Jun-2020 Instruction Type:Patient Education How to access health informa tion online - Detail Indication:Unspecified Diagnosis Start:09-Jun-2020 Instruction Type:Patient Education Patient Instructions Indication:Unspecified Diagnosis Start:09-Jun-2020 Instruction Type:Provider Instructions for Treatment How to access health informa tion online Indication:BMI 20.0-20.9, adult Start:23-Apr-2020 Instruction Type:Patient Education How to access health informa tion online - Detail Indication:BMI 20.0-20.9, adult Start:23-Apr-2020 Instruction Type:Patient Education Patient Instructions Indication:BMI 20.0-20.9, adult Start:23-Apr-2020 Instruction Type:Provider Instructions for Treatment How to access health informa tion online Indication:Encounter for annual general medical examination with abnormal findings in adult Start:16-Mar-2020 Instruction Type:Patient Education How to access health informa tion online - Detail Indication:Encounter for annual general medical examination with abnormal findings in adult Start:16-Mar-2020 Instruction Type:Patient Education Patient Instructions Indication:Encounter for annual general medical examination with abnormal findings in adult Start:16-Mar-2020 Instruction Type:Provider Instructions for Treatment [facility]; [facility] Work Phone: Instructions* Name Dates Details Patient Instructions Indication:BMI 20.0-20.9, adult Start:10-Jul-2023 Instruction Type:Provider Instructions for Treatment How to Access Health Informa tion Online using Patient Portal and [employer] Indication:BMI 20.0-20.9, adult Start:10-Jul-2023 Instruction Type:Patient Education Patient Instructions Indication:Lymphadenopathy Start:10-Feb-2023 Instruction Type:Provider Instructions for Treatment How to Access Health Informa tion Online using Patient Portal and [employer] Indication:Lymphadenopathy Start:10-Feb-2023 Instruction Type:Patient Education Patient Instructions Indication:BMI 20.0-20.9, adult Start:10-Jan-2023 Instruction Type:Provider Instructions for Treatment How to Access Health Informa tion Online using Patient Portal and [employer] Indication:BMI 20.0-20.9, adult Start:10-Jan-2023 Instruction Type:Patient Education How to Access Health Informa tion Online using Patient Portal and [employer] Indication:Non-smoker Start:29-Sep-2022 Instruction Type:Patient Education Patient Instructions Indication:Non-smoker Start:29-Sep-2022 Instruction Type:Provider Instructions for Treatment Patient Instructions Indication:Encounter for annual general medical examination with abnormal findings in adult Start:05-Jul-2022 Instruction Type:Provider Instructions for Treatment How to Access Health Informa tion Online using Patient Portal and [employer] Indication:Encounter for annual general medical examination with abnormal findings in adult Start:05-Jul-2022 Instruction Type:Patient Education Patient Instructions Indication:Non-smoker Start:21-Feb-2022 Instruction Type:Provider Instructions for Treatment How to Access Health Informa tion Online using Patient Portal and [employer] Indication:Non-smoker Start:21-Feb-2022 Instruction Type:Patient Education Patient Instructions Indication:Chronic left shoulder pain Start:14-Jan-2022 Instruction Type:Provider Instructions for Treatment How to Access Health Informa tion Online using Patient Portal and [employer] Indication:Chronic left shoulder pain Start:14-Jan-2022 Instruction Type:Patient Education Patient Instructions Indication:Encounter for annual general medical examination with abnormal findings in adult Start:11-Nov-2021 Instruction Type:Provider Instructions for Treatment How to Access Health Informa tion Online using Patient Portal and [employer] Indication:Encounter for annual general medical examination with abnormal findings in adult Start:11-Nov-2021 Instruction Type:Patient Education Patient Instructions Indication:Encounter for annual general medical examination with abnormal findings in adult Start:13-Jul-2021 Instruction Type:Provider Instructions for Treatment How to Access Health Informa tion Online using Patient Portal and [employer] Indication:Encounter for annual general medical examination with abnormal findings in adult Start:13-Jul-2021 Instruction Type:Patient Education Patient Instructions Indication:Non-smoker Start:09-Jul-2021 Instruction Type:Provider Instructions for Treatment How to Access Health Informa tion Online using Patient Portal and [employer] Indication:Non-smoker Start:09-Jul-2021 Instruction Type:Patient Education Patient Instructions Indication:BMI 20.0-20.9, adult Start:02-Apr-2021 Instruction Type:Provider Instructions for Treatment How to Access Health Informa tion Online using Patient Portal and [employer] Indication:BMI 20.0-20.9, adult Start:02-Apr-2021 Instruction Type:Patient Education Patient Instructions Indication:BMI 20.0-20.9, adult Start:24-Mar-2021 Instruction Type:Provider Instructions for Treatment How to Access Health Informa tion Online using Patient Portal and [employer] Indication:BMI 20.0-20.9, adult Start:24-Mar-2021 Instruction Type:Patient Education Patient Instructions Indication:Leg cramping Start:04-Feb-2021 Instruction Type:Provider Instructions for Treatment How to Access Health Informa tion Online using Patient Portal and [employer] Indication:Leg cramping Start:04-Feb-2021 Instruction Type:Patient Education Patient Instructions Indication:Fracture of left clavicle with nonunion Start:06-Nov-2020 Instruction Type:Provider Instructions for Treatment How to Access Health Informa tion Online using Patient Portal and [employer] Indication:Fracture of left clavicle with nonunion Start:06-Nov-2020 Instruction Type:Patient Education Patient Instructions Indication:Elevated blood pressure reading Start:27-Oct-2020 Instruction Type:Provider Instructions for Treatment How to Access Health Informa tion Online using Patient Portal and [employer] Apps Indication:Elevated blood pressure reading Start:27-Oct-2020 Instruction Type:Patient Education How to access health informa tion online Indication:Fracture of left clavicle with nonunion Start:01-Sep-2020 Instruction Type:Patient Education How to access health informa tion online - Detail Indication:Fracture of left clavicle with nonunion Start:01-Sep-2020 Instruction Type:Patient Education Patient Instructions Indication:Fracture of left clavicle with nonunion Start:01-Sep-2020 Instruction Type:Provider Instructions for Treatment How to access health informa tion online Indication:Non-smoker Start:07-Jul-2020 Instruction Type:Patient Education How to access health informa tion online - Detail Indication:Non-smoker Start:07-Jul-2020 Instruction Type:Patient Education Patient Instructions Indication:Non-smoker Start:07-Jul-2020 Instruction Type:Provider Instructions for Treatment How to access health informa tion online Indication:Unspecified Diagnosis Start:09-Jun-2020 Instruction Type:Patient Education How to access health informa tion online - Detail Indication:Unspecified Diagnosis Start:09-Jun-2020 Instruction Type:Patient Education Patient Instructions Indication:Unspecified Diagnosis Start:09-Jun-2020 Instruction Type:Provider Instructions for Treatment How to access health informa tion online Indication:BMI 20.0-20.9, adult Start:23-Apr-2020 Instruction Type:Patient Education How to access health informa tion online - Detail Indication:BMI 20.0-20.9, adult Start:23-Apr-2020 Instruction Type:Patient Education Patient Instructions Indication:BMI 20.0-20.9, adult Start:23-Apr-2020 Instruction Type:Provider Instructions for Treatment How to access health informa tion online Indication:Encounter for annual general medical examination with abnormal findings in adult Start:16-Mar-2020 Instruction Type:Patient Education How to access health informa tion online - Detail Indication:Encounter for annual general medical examination with abnormal findings in adult Start:16-Mar-2020 Instruction Type:Patient Education Patient Instructions Indication:Encounter for annual general medical examination with abnormal findings in adult Start:16-Mar-2020 Instruction Type:Provider Instructions for Treatment [facility]; [facility] Work Phone: Instructions* Name Dates Details Patient Instructions Indication:BMI 20.0-20.9, adult Start:10-Jul-2023 Instruction Type:Provider Instructions for Treatment How to Access Health Informa tion Online using Patient Portal and [employer] Indication:BMI 20.0-20.9, adult Start:10-Jul-2023 Instruction Type:Patient Education Patient Instructions Indication:Lymphadenopathy Start:10-Feb-2023 Instruction Type:Provider Instructions for Treatment How to Access Health Informa tion Online using Patient Portal and [employer] Indication:Lymphadenopathy Start:10-Feb-2023 Instruction Type:Patient Education Patient Instructions Indication:BMI 20.0-20.9, adult Start:10-Jan-2023 Instruction Type:Provider Instructions for Treatment How to Access Health Informa tion Online using Patient Portal and [employer] Indication:BMI 20.0-20.9, adult Start:10-Jan-2023 Instruction Type:Patient Education How to Access Health Informa tion Online using Patient Portal and [employer] Indication:Non-smoker Start:29-Sep-2022 Instruction Type:Patient Education Patient Instructions Indication:Non-smoker Start:29-Sep-2022 Instruction Type:Provider Instructions for Treatment Patient Instructions Indication:Encounter for annual general medical examination with abnormal findings in adult Start:05-Jul-2022 Instruction Type:Provider Instructions for Treatment How to Access Health Informa tion Online using Patient Portal and [employer] Indication:Encounter for annual general medical examination with abnormal findings in adult Start:05-Jul-2022 Instruction Type:Patient Education Patient Instructions Indication:Non-smoker Start:21-Feb-2022 Instruction Type:Provider Instructions for Treatment How to Access Health Informa tion Online using Patient Portal and [employer] Indication:Non-smoker Start:21-Feb-2022 Instruction Type:Patient Education Patient Instructions Indication:Chronic left shoulder pain Start:14-Jan-2022 Instruction Type:Provider Instructions for Treatment How to Access Health Informa tion Online using Patient Portal and [employer] Indication:Chronic left shoulder pain Start:14-Jan-2022 Instruction Type:Patient Education Patient Instructions Indication:Encounter for annual general medical examination with abnormal findings in adult Start:11-Nov-2021 Instruction Type:Provider Instructions for Treatment How to Access Health Informa tion Online using Patient Portal and [employer] Indication:Encounter for annual general medical examination with abnormal findings in adult Start:11-Nov-2021 Instruction Type:Patient Education Patient Instructions Indication:Encounter for annual general medical examination with abnormal findings in adult Start:13-Jul-2021 Instruction Type:Provider Instructions for Treatment How to Access Health Informa tion Online using Patient Portal and [employer] Indication:Encounter for annual general medical examination with abnormal findings in adult Start:13-Jul-2021 Instruction Type:Patient Education Patient Instructions Indication:Non-smoker Start:09-Jul-2021 Instruction Type:Provider Instructions for Treatment How to Access Health Informa tion Online using Patient Portal and [employer] Indication:Non-smoker Start:09-Jul-2021 Instruction Type:Patient Education Patient Instructions Indication:BMI 20.0-20.9, adult Start:02-Apr-2021 Instruction Type:Provider Instructions for Treatment How to Access Health Informa tion Online using Patient Portal and [employer] Indication:BMI 20.0-20.9, adult Start:02-Apr-2021 Instruction Type:Patient Education Patient Instructions Indication:BMI 20.0-20.9, adult Start:24-Mar-2021 Instruction Type:Provider Instructions for Treatment How to Access Health Informa tion Online using Patient Portal and [employer] Indication:BMI 20.0-20.9, adult Start:24-Mar-2021 Instruction Type:Patient Education Patient Instructions Indication:Leg cramping Start:04-Feb-2021 Instruction Type:Provider Instructions for Treatment How to Access Health Informa tion Online using Patient Portal and [employer] Indication:Leg cramping Start:04-Feb-2021 Instruction Type:Patient Education Patient Instructions Indication:Fracture of left clavicle with nonunion Start:06-Nov-2020 Instruction Type:Provider Instructions for Treatment How to Access Health Informa tion Online using Patient Portal and [employer] Indication:Fracture of left clavicle with nonunion Start:06-Nov-2020 Instruction Type:Patient Education Patient Instructions Indication:Elevated blood pressure reading Start:27-Oct-2020 Instruction Type:Provider Instructions for Treatment How to Access Health Informa tion Online using Patient Portal and [employer] Indication:Elevated blood pressure reading Start:27-Oct-2020 Instruction Type:Patient Education How to access health informa tion online Indication:Fracture of left clavicle with nonunion Start:01-Sep-2020 Instruction Type:Patient Education How to access health informa tion online - Detail Indication:Fracture of left clavicle with nonunion Start:01-Sep-2020 Instruction Type:Patient Education Patient Instructions Indication:Fracture of left clavicle with nonunion Start:01-Sep-2020 Instruction Type:Provider Instructions for Treatment How to access health informa tion online Indication:Non-smoker Start:07-Jul-2020 Instruction Type:Patient Education How to access health informa tion online - Detail Indication:Non-smoker Start:07-Jul-2020 Instruction Type:Patient Education Patient Instructions Indication:Non-smoker Start:07-Jul-2020 Instruction Type:Provider Instructions for Treatment How to access health informa tion online Indication:Unspecified Diagnosis Start:09-Jun-2020 Instruction Type:Patient Education How to access health informa tion online - Detail Indication:Unspecified Diagnosis Start:09-Jun-2020 Instruction Type:Patient Education Patient Instructions Indication:Unspecified Diagnosis Start:09-Jun-2020 Instruction Type:Provider Instructions for Treatment How to access health informa tion online Indication:BMI 20.0-20.9, adult Start:23-Apr-2020 Instruction Type:Patient Education How to access health informa tion online - Detail Indication:BMI 20.0-20.9, adult Start:23-Apr-2020 Instruction Type:Patient Education Patient Instructions Indication:BMI 20.0-20.9, adult Start:23-Apr-2020 Instruction Type:Provider Instructions for Treatment How to access health informa tion online Indication:Encounter for annual general medical examination with abnormal findings in adult Start:16-Mar-2020 Instruction Type:Patient Education How to access health informa tion online - Detail Indication:Encounter for annual general medical examination with abnormal findings in adult Start:16-Mar-2020 Instruction Type:Patient Education Patient Instructions Indication:Encounter for annual general medical examination with abnormal findings in adult Start:16-Mar-2020 Instruction Type:Provider Instructions for Treatment [facility]; [facility] Work Phone: Instructions* Name Dates Details Patient Instructions Indication:BMI 20.0-20.9, adult Start:10-Jul-2023 Instruction Type:Provider Instructions for Treatment How to Access Health Informa tion Online using Patient Portal and [employer] Indication:BMI 20.0-20.9, adult Start:10-Jul-2023 Instruction Type:Patient Education Patient Instructions Indication:Lymphadenopathy Start:10-Feb-2023 Instruction Type:Provider Instructions for Treatment How to Access Health Informa tion Online using Patient Portal and [employer] Indication:Lymphadenopathy Start:10-Feb-2023 Instruction Type:Patient Education Patient Instructions Indication:BMI 20.0-20.9, adult Start:10-Jan-2023 Instruction Type:Provider Instructions for Treatment How to Access Health Informa tion Online using Patient Portal and [employer] Indication:BMI 20.0-20.9, adult Start:10-Jan-2023 Instruction Type:Patient Education How to Access Health Informa tion Online using Patient Portal and [employer] Indication:Non-smoker Start:29-Sep-2022 Instruction Type:Patient Education Patient Instructions Indication:Non-smoker Start:29-Sep-2022 Instruction Type:Provider Instructions for Treatment Patient Instructions Indication:Encounter for annual general medical examination with abnormal findings in adult Start:05-Jul-2022 Instruction Type:Provider Instructions for Treatment How to Access Health Informa tion Online using Patient Portal and [employer] Indication:Encounter for annual general medical examination with abnormal findings in adult Start:05-Jul-2022 Instruction Type:Patient Education Patient Instructions Indication:Non-smoker Start:21-Feb-2022 Instruction Type:Provider Instructions for Treatment How to Access Health Informa tion Online using Patient Portal and [employer] Indication:Non-smoker Start:21-Feb-2022 Instruction Type:Patient Education Patient Instructions Indication:Chronic left shoulder pain Start:14-Jan-2022 Instruction Type:Provider Instructions for Treatment How to Access Health Informa tion Online using Patient Portal and [employer] Indication:Chronic left shoulder pain Start:14-Jan-2022 Instruction Type:Patient Education Patient Instructions Indication:Encounter for annual general medical examination with abnormal findings in adult Start:11-Nov-2021 Instruction Type:Provider Instructions for Treatment How to Access Health Informa tion Online using Patient Portal and [employer] Indication:Encounter for annual general medical examination with abnormal findings in adult Start:11-Nov-2021 Instruction Type:Patient Education Patient Instructions Indication:Encounter for annual general medical examination with abnormal findings in adult Start:13-Jul-2021 Instruction Type:Provider Instructions for Treatment How to Access Health Informa tion Online using Patient Portal and [employer] Indication:Encounter for annual general medical examination with abnormal findings in adult Start:13-Jul-2021 Instruction Type:Patient Education Patient Instructions Indication:Non-smoker Start:09-Jul-2021 Instruction Type:Provider Instructions for Treatment How to Access Health Informa tion Online using Patient Portal and [employer] Indication:Non-smoker Start:09-Jul-2021 Instruction Type:Patient Education Patient Instructions Indication:BMI 20.0-20.9, adult Start:02-Apr-2021 Instruction Type:Provider Instructions for Treatment How to Access Health Informa tion Online using Patient Portal and [employer] Indication:BMI 20.0-20.9, adult Start:02-Apr-2021 Instruction Type:Patient Education Patient Instructions Indication:BMI 20.0-20.9, adult Start:24-Mar-2021 Instruction Type:Provider Instructions for Treatment How to Access Health Informa tion Online using Patient Portal and [employer] Indication:BMI 20.0-20.9, adult Start:24-Mar-2021 Instruction Type:Patient Education Patient Instructions Indication:Leg cramping Start:04-Feb-2021 Instruction Type:Provider Instructions for Treatment How to Access Health Informa tion Online using Patient Portal and [employer] Indication:Leg cramping Start:04-Feb-2021 Instruction Type:Patient Education Patient Instructions Indication:Fracture of left clavicle with nonunion Start:06-Nov-2020 Instruction Type:Provider Instructions for Treatment How to Access Health Informa tion Online using Patient Portal and [employer] Indication:Fracture of left clavicle with nonunion Start:06-Nov-2020 Instruction Type:Patient Education Patient Instructions Indication:Elevated blood pressure reading Start:27-Oct-2020 Instruction Type:Provider Instructions for Treatment How to Access Health Informa tion Online using Patient Portal and [employer] Indication:Elevated blood pressure reading Start:27-Oct-2020 Instruction Type:Patient Education How to access health informa tion online Indication:Fracture of left clavicle with nonunion Start:01-Sep-2020 Instruction Type:Patient Education How to access health informa tion online - Detail Indication:Fracture of left clavicle with nonunion Start:01-Sep-2020 Instruction Type:Patient Education Patient Instructions Indication:Fracture of left clavicle with nonunion Start:01-Sep-2020 Instruction Type:Provider Instructions for Treatment How to access health informa tion online Indication:Non-smoker Start:07-Jul-2020 Instruction Type:Patient Education How to access health informa tion online - Detail Indication:Non-smoker Start:07-Jul-2020 Instruction Type:Patient Education Patient Instructions Indication:Non-smoker Start:07-Jul-2020 Instruction Type:Provider Instructions for Treatment How to access health informa tion online Indication:Unspecified Diagnosis Start:09-Jun-2020 Instruction Type:Patient Education How to access health informa tion online - Detail Indication:Unspecified Diagnosis Start:09-Jun-2020 Instruction Type:Patient Education Patient Instructions Indication:Unspecified Diagnosis Start:09-Jun-2020 Instruction Type:Provider Instructions for Treatment How to access health informa tion online Indication:BMI 20.0-20.9, adult Start:23-Apr-2020 Instruction Type:Patient Education How to access health informa tion online - Detail Indication:BMI 20.0-20.9, adult Start:23-Apr-2020 Instruction Type:Patient Education Patient Instructions Indication:BMI 20.0-20.9, adult Start:23-Apr-2020 Instruction Type:Provider Instructions for Treatment How to access health informa tion online Indication:Encounter for annual general medical examination with abnormal findings in adult Start:16-Mar-2020 Instruction Type:Patient Education How to access health informa tion online - Detail Indication:Encounter for annual general medical examination with abnormal findings in adult Start:16-Mar-2020 Instruction Type:Patient Education Patient Instructions Indication:Encounter for annual general medical examination with abnormal findings in adult Start:16-Mar-2020 Instruction Type:Provider Instructions for Treatment [facility]; [facility] Work Phone: Instructions* Name Dates Details Patient Instructions Indication:BMI 20.0-20.9, adult Start:08-Aug-2023 Instruction Type:Provider Instructions for Treatment How to Access Health Informa tion Online using Patient Portal and [employer] Indication:BMI 20.0-20.9, adult Start:08-Aug-2023 Instruction Type:Patient Education Patient Instructions Indication:BMI 20.0-20.9, adult Start:10-Jul-2023 Instruction Type:Provider Instructions for Treatment How to Access Health Informa tion Online using Patient Portal and [employer] Indication:BMI 20.0-20.9, adult Start:10-Jul-2023 Instruction Type:Patient Education Patient Instructions Indication:Lymphadenopathy Start:10-Feb-2023 Instruction Type:Provider Instructions for Treatment How to Access Health Informa tion Online using Patient Portal and [employer] Indication:Lymphadenopathy Start:10-Feb-2023 Instruction Type:Patient Education Patient Instructions Indication:BMI 20.0-20.9, adult Start:10-Jan-2023 Instruction Type:Provider Instructions for Treatment How to Access Health Informa tion Online using Patient Portal and [employer] Indication:BMI 20.0-20.9, adult Start:10-Jan-2023 Instruction Type:Patient Education How to Access Health Informa tion Online using Patient Portal and [employer] Indication:Non-smoker Start:29-Sep-2022 Instruction Type:Patient Education Patient Instructions Indication:Non-smoker Start:29-Sep-2022 Instruction Type:Provider Instructions for Treatment Patient Instructions Indication:Encounter for annual general medical examination with abnormal findings in adult Start:05-Jul-2022 Instruction Type:Provider Instructions for Treatment How to Access Health Informa tion Online using Patient Portal and [employer] Indication:Encounter for annual general medical examination with abnormal findings in adult Start:05-Jul-2022 Instruction Type:Patient Education Patient Instructions Indication:Non-smoker Start:21-Feb-2022 Instruction Type:Provider Instructions for Treatment How to Access Health Informa tion Online using Patient Portal and [employer] Indication:Non-smoker Start:21-Feb-2022 Instruction Type:Patient Education Patient Instructions Indication:Chronic left shoulder pain Start:14-Jan-2022 Instruction Type:Provider Instructions for Treatment How to Access Health Informa tion Online using Patient Portal and [employer] Indication:Chronic left shoulder pain Start:14-Jan-2022 Instruction Type:Patient Education Patient Instructions Indication:Encounter for annual general medical examination with abnormal findings in adult Start:11-Nov-2021 Instruction Type:Provider Instructions for Treatment How to Access Health Informa tion Online using Patient Portal and [employer] Indication:Encounter for annual general medical examination with abnormal findings in adult Start:11-Nov-2021 Instruction Type:Patient Education Patient Instructions Indication:Encounter for annual general medical examination with abnormal findings in adult Start:13-Jul-2021 Instruction Type:Provider Instructions for Treatment How to Access Health Informa tion Online using Patient Portal and [employer] Indication:Encounter for annual general medical examination with abnormal findings in adult Start:13-Jul-2021 Instruction Type:Patient Education Patient Instructions Indication:Non-smoker Start:09-Jul-2021 Instruction Type:Provider Instructions for Treatment How to Access Health Informa tion Online using Patient Portal and [employer] Indication:Non-smoker Start:09-Jul-2021 Instruction Type:Patient Education Patient Instructions Indication:BMI 20.0-20.9, adult Start:02-Apr-2021 Instruction Type:Provider Instructions for Treatment How to Access Health Informa tion Online using Patient Portal and [employer] Indication:BMI 20.0-20.9, adult Start:02-Apr-2021 Instruction Type:Patient Education Patient Instructions Indication:BMI 20.0-20.9, adult Start:24-Mar-2021 Instruction Type:Provider Instructions for Treatment How to Access Health Informa tion Online using Patient Portal and [employer] Indication:BMI 20.0-20.9, adult Start:24-Mar-2021 Instruction Type:Patient Education Patient Instructions Indication:Leg cramping Start:04-Feb-2021 Instruction Type:Provider Instructions for Treatment How to Access Health Informa tion Online using Patient Portal and [employer] Indication:Leg cramping Start:04-Feb-2021 Instruction Type:Patient Education Patient Instructions Indication:Fracture of left clavicle with nonunion Start:06-Nov-2020 Instruction Type:Provider Instructions for Treatment How to Access Health Informa tion Online using Patient Portal and [employer] Indication:Fracture of left clavicle with nonunion Start:06-Nov-2020 Instruction Type:Patient Education Patient Instructions Indication:Elevated blood pressure reading Start:27-Oct-2020 Instruction Type:Provider Instructions for Treatment How to Access Health Informa tion Online using Patient Portal and [employer] Indication:Elevated blood pressure reading Start:27-Oct-2020 Instruction Type:Patient Education How to access health informa tion online Indication:Fracture of left clavicle with nonunion Start:01-Sep-2020 Instruction Type:Patient Education How to access health informa tion online - Detail Indication:Fracture of left clavicle with nonunion Start:01-Sep-2020 Instruction Type:Patient Education Patient Instructions Indication:Fracture of left clavicle with nonunion Start:01-Sep-2020 Instruction Type:Provider Instructions for Treatment How to access health informa tion online Indication:Non-smoker Start:07-Jul-2020 Instruction Type:Patient Education How to access health informa tion online - Detail Indication:Non-smoker Start:07-Jul-2020 Instruction Type:Patient Education Patient Instructions Indication:Non-smoker Start:07-Jul-2020 Instruction Type:Provider Instructions for Treatment How to access health informa tion online Indication:Unspecified Diagnosis Start:09-Jun-2020 Instruction Type:Patient Education How to access health informa tion online - Detail Indication:Unspecified Diagnosis Start:09-Jun-2020 Instruction Type:Patient Education Patient Instructions Indication:Unspecified Diagnosis Start:09-Jun-2020 Instruction Type:Provider Instructions for Treatment How to access health informa tion online Indication:BMI 20.0-20.9, adult Start:23-Apr-2020 Instruction Type:Patient Education How to access health informa tion online - Detail Indication:BMI 20.0-20.9, adult Start:23-Apr-2020 Instruction Type:Patient Education Patient Instructions Indication:BMI 20.0-20.9, adult Start:23-Apr-2020 Instruction Type:Provider Instructions for Treatment How to access health informa tion online Indication:Encounter for annual general medical examination with abnormal findings in adult Start:16-Mar-2020 Instruction Type:Patient Education How to access health informa tion online - Detail Indication:Encounter for annual general medical examination with abnormal findings in adult Start:16-Mar-2020 Instruction Type:Patient Education Patient Instructions Indication:Encounter for annual general medical examination with abnormal findings in adult Start:16-Mar-2020 Instruction Type:Provider Instructions for Treatment [facility] Work Phone: Instructions* Name Dates Details Patient Instructions Indication:BMI 20.0-20.9, adult Start:08-Aug-2023 Instruction Type:Provider Instructions for Treatment How to Access Health Informa tion Online using Patient Portal and 3rd [employer] Apps Indication:BMI 20.0-20.9, adult Start:08-Aug-2023 Instruction Type:Patient Education Patient Instructions Indication:BMI 20.0-20.9, adult Start:10-Jul-2023 Instruction Type:Provider Instructions for Treatment How to Access Health Informa tion Online using Patient Portal and 3rd [employer] Apps Indication:BMI 20.0-20.9, adult Start:10-Jul-2023 Instruction Type:Patient Education Patient Instructions Indication:Lymphadenopathy Start:10-Feb-2023 Instruction Type:Provider Instructions for Treatment How to Access Health Informa tion Online using Patient Portal and [employer] Apps Indication:Lymphadenopathy Start:10-Feb-2023 Instruction Type:Patient Education Patient Instructions Indication:BMI 20.0-20.9, adult Start:10-Jan-2023 Instruction Type:Provider Instructions for Treatment How to Access Health Informa tion Online using Patient Portal and [employer] Apps Indication:BMI 20.0-20.9, adult Start:10-Jan-2023 Instruction Type:Patient Education How to Access Health Informa tion Online using Patient Portal and 3rd [employer] Apps Indication:Non-smoker Start:29-Sep-2022 Instruction Type:Patient Education Patient Instructions Indication:Non-smoker Start:29-Sep-2022 Instruction Type:Provider Instructions for Treatment Patient Instructions Indication:Encounter for annual general medical examination with abnormal findings in adult Start:05-Jul-2022 Instruction Type:Provider Instructions for Treatment How to Access Health Informa tion Online using Patient Portal and [employer] Apps Indication:Encounter for annual general medical examination with abnormal findings in adult Start:05-Jul-2022 Instruction Type:Patient Education Patient Instructions Indication:Non-smoker Start:21-Feb-2022 Instruction Type:Provider Instructions for Treatment How to Access Health Informa tion Online using Patient Portal and 3rd [employer] Apps Indication:Non-smoker Start:21-Feb-2022 Instruction Type:Patient Education Patient Instructions Indication:Chronic left shoulder pain Start:14-Jan-2022 Instruction Type:Provider Instructions for Treatment How to Access Health Informa tion Online using Patient Portal and 3rd [employer] Apps Indication:Chronic left shoulder pain Start:14-Jan-2022 Instruction Type:Patient Education Patient Instructions Indication:Encounter for annual general medical examination with abnormal findings in adult Start:11-Nov-2021 Instruction Type:Provider Instructions for Treatment How to Access Health Informa tion Online using Patient Portal and [employer] Apps Indication:Encounter for annual general medical examination with abnormal findings in adult Start:11-Nov-2021 Instruction Type:Patient Education Patient Instructions Indication:Encounter for annual general medical examination with abnormal findings in adult Start:13-Jul-2021 Instruction Type:Provider Instructions for Treatment How to Access Health Informa tion Online using Patient Portal and [employer] Apps Indication:Encounter for annual general medical examination with abnormal findings in adult Start:13-Jul-2021 Instruction Type:Patient Education Patient Instructions Indication:Non-smoker Start:09-Jul-2021 Instruction Type:Provider Instructions for Treatment How to Access Health Informa tion Online using Patient Portal and [employer] Apps Indication:Non-smoker Start:09-Jul-2021 Instruction Type:Patient Education Patient Instructions Indication:BMI 20.0-20.9, adult Start:02-Apr-2021 Instruction Type:Provider Instructions for Treatment How to Access Health Informa tion Online using Patient Portal and [employer] Apps Indication:BMI 20.0-20.9, adult Start:02-Apr-2021 Instruction Type:Patient Education Patient Instructions Indication:BMI 20.0-20.9, adult Start:24-Mar-2021 Instruction Type:Provider Instructions for Treatment How to Access Health Informa tion Online using Patient [employer] and [employer] Apps Indication:BMI 20.0-20.9, adult Start:24-Mar-2021 Instruction Type:Patient Education Patient Instructions Indication:Leg cramping Start:04-Feb-2021 Instruction Type:Provider Instructions for Treatment How to Access Health Informa tion Online using Patient [employer] and [employer] Apps Indication:Leg cramping Start:04-Feb-2021 Instruction Type:Patient Education Patient Instructions Indication:Fracture of left clavicle with nonunion Start:06-Nov-2020 Instruction Type:Provider Instructions for Treatment How to Access Health Informa tion Online using Patient Portal and [employer] Apps Indication:Fracture of left clavicle with nonunion Start:06-Nov-2020 Instruction Type:Patient Education Patient Instructions Indication:Elevated blood pressure reading Start:27-Oct-2020 Instruction Type:Provider Instructions for Treatment How to Access Health Informa tion Online using Patient Portal and [employer]rd [employer] Apps Indication:Elevated blood pressure reading Start:27-Oct-2020 Instruction Type:Patient Education How to access health informa tion online Indication:Fracture of left clavicle with nonunion Start:01-Sep-2020 Instruction Type:Patient Education How to access health informa tion online - Detail Indication:Fracture of left clavicle with nonunion Start:01-Sep-2020 Instruction Type:Patient Education Patient Instructions Indication:Fracture of left clavicle with nonunion Start:01-Sep-2020 Instruction Type:Provider Instructions for Treatment How to access health informa tion online Indication:Non-smoker Start:07-Jul-2020 Instruction Type:Patient Education How to access health informa tion online - Detail Indication:Non-smoker Start:07-Jul-2020 Instruction Type:Patient Education Patient Instructions Indication:Non-smoker Start:07-Jul-2020 Instruction Type:Provider Instructions for Treatment How to access health informa tion online Indication:Unspecified Diagnosis Start:09-Jun-2020 Instruction Type:Patient Education How to access health informa tion online - Detail Indication:Unspecified Diagnosis Start:09-Jun-2020 Instruction Type:Patient Education Patient Instructions Indication:Unspecified Diagnosis Start:09-Jun-2020 Instruction Type:Provider Instructions for Treatment How to access health informa tion online Indication:BMI 20.0-20.9, adult Start:23-Apr-2020 Instruction Type:Patient Education How to access health informa tion online - Detail Indication:BMI 20.0-20.9, adult Start:23-Apr-2020 Instruction Type:Patient Education Patient Instructions Indication:BMI 20.0-20.9, adult Start:23-Apr-2020 Instruction Type:Provider Instructions for Treatment How to access health informa tion online Indication:Encounter for annual general medical examination with abnormal findings in adult Start:16-Mar-2020 Instruction Type:Patient Education How to access health informa tion online - Detail Indication:Encounter for annual general medical examination with abnormal findings in adult Start:16-Mar-2020 Instruction Type:Patient Education Patient Instructions Indication:Encounter for annual general medical examination with abnormal findings in adult Start:16-Mar-2020 Instruction Type:Provider Instructions for Treatment [facility] Work Phone: Instructions* Name Dates Details Patient Instructions Indication:BMI 20.0-20.9, adult Start:08-Aug-2023 Instruction Type:Provider Instructions for Treatment How to Access Health Informa tion Online using Patient Portal and 3rd [employer] Apps Indication:BMI 20.0-20.9, adult Start:08-Aug-2023 Instruction Type:Patient Education Patient Instructions Indication:BMI 20.0-20.9, adult Start:10-Jul-2023 Instruction Type:Provider Instructions for Treatment How to Access Health Informa tion Online using Patient Portal and 3rd [employer] Apps Indication:BMI 20.0-20.9, adult Start:10-Jul-2023 Instruction Type:Patient Education Patient Instructions Indication:Lymphadenopathy Start:10-Feb-2023 Instruction Type:Provider Instructions for Treatment How to Access Health Informa tion Online using Patient Portal and 3rd [employer] Apps Indication:Lymphadenopathy Start:10-Feb-2023 Instruction Type:Patient Education Patient Instructions Indication:BMI 20.0-20.9, adult Start:10-Jan-2023 Instruction Type:Provider Instructions for Treatment How to Access Health Informa tion Online using Patient Portal and 3rd [employer] Apps Indication:BMI 20.0-20.9, adult Start:10-Jan-2023 Instruction Type:Patient Education How to Access Health Informa tion Online using Patient Portal and 3rd [employer] Apps Indication:Non-smoker Start:29-Sep-2022 Instruction Type:Patient Education Patient Instructions Indication:Non-smoker Start:29-Sep-2022 Instruction Type:Provider Instructions for Treatment Patient Instructions Indication:Encounter for annual general medical examination with abnormal findings in adult Start:05-Jul-2022 Instruction Type:Provider Instructions for Treatment How to Access Health Informa tion Online using Patient Portal and 3rd [employer] Apps Indication:Encounter for annual general medical examination with abnormal findings in adult Start:05-Jul-2022 Instruction Type:Patient Education Patient Instructions Indication:Non-smoker Start:21-Feb-2022 Instruction Type:Provider Instructions for Treatment How to Access Health Informa tion Online using Patient Portal and [employer]rd [employer] Apps Indication:Non-smoker Start:21-Feb-2022 Instruction Type:Patient Education Patient Instructions Indication:Chronic left shoulder pain Start:14-Jan-2022 Instruction Type:Provider Instructions for Treatment How to Access Health Informa tion Online using Patient Portal and [employer]rd [employer] Apps Indication:Chronic left shoulder pain Start:14-Jan-2022 Instruction Type:Patient Education Patient Instructions Indication:Encounter for annual general medical examination with abnormal findings in adult Start:11-Nov-2021 Instruction Type:Provider Instructions for Treatment How to Access Health Informa tion Online using Patient Portal and [employer] Apps Indication:Encounter for annual general medical examination with abnormal findings in adult Start:11-Nov-2021 Instruction Type:Patient Education Patient Instructions Indication:Encounter for annual general medical examination with abnormal findings in adult Start:13-Jul-2021 Instruction Type:Provider Instructions for Treatment How to Access Health Informa tion Online using Patient Portal and [employer] Apps Indication:Encounter for annual general medical examination with abnormal findings in adult Start:13-Jul-2021 Instruction Type:Patient Education Patient Instructions Indication:Non-smoker Start:09-Jul-2021 Instruction Type:Provider Instructions for Treatment How to Access Health Informa tion Online using Patient Portal and [employer] Apps Indication:Non-smoker Start:09-Jul-2021 Instruction Type:Patient Education Patient Instructions Indication:BMI 20.0-20.9, adult Start:02-Apr-2021 Instruction Type:Provider Instructions for Treatment How to Access Health Informa tion Online using Patient Portal and [employer] Apps Indication:BMI 20.0-20.9, adult Start:02-Apr-2021 Instruction Type:Patient Education Patient Instructions Indication:BMI 20.0-20.9, adult Start:24-Mar-2021 Instruction Type:Provider Instructions for Treatment How to Access Health Informa tion Online using Patient Portal and [employer] Apps Indication:BMI 20.0-20.9, adult Start:24-Mar-2021 Instruction Type:Patient Education Patient Instructions Indication:Leg cramping Start:04-Feb-2021 Instruction Type:Provider Instructions for Treatment How to Access Health Informa tion Online using Patient Portal and [employer] Apps Indication:Leg cramping Start:04-Feb-2021 Instruction Type:Patient Education Patient Instructions Indication:Fracture of left clavicle with nonunion Start:06-Nov-2020 Instruction Type:Provider Instructions for Treatment How to Access Health Informa tion Online using Patient Portal and [employer] Apps Indication:Fracture of left clavicle with nonunion Start:06-Nov-2020 Instruction Type:Patient Education Patient Instructions Indication:Elevated blood pressure reading Start:27-Oct-2020 Instruction Type:Provider Instructions for Treatment How to Access Health Informa tion Online using Patient Portal and [employer] Apps Indication:Elevated blood pressure reading Start:27-Oct-2020 Instruction Type:Patient Education How to access health informa tion online Indication:Fracture of left clavicle with nonunion Start:01-Sep-2020 Instruction Type:Patient Education How to access health informa tion online - Detail Indication:Fracture of left clavicle with nonunion Start:01-Sep-2020 Instruction Type:Patient Education Patient Instructions Indication:Fracture of left clavicle with nonunion Start:01-Sep-2020 Instruction Type:Provider Instructions for Treatment How to access health informa tion online Indication:Non-smoker Start:07-Jul-2020 Instruction Type:Patient Education How to access health informa tion online - Detail Indication:Non-smoker Start:07-Jul-2020 Instruction Type:Patient Education Patient Instructions Indication:Non-smoker Start:07-Jul-2020 Instruction Type:Provider Instructions for Treatment How to access health informa tion online Indication:Unspecified Diagnosis Start:09-Jun-2020 Instruction Type:Patient Education How to access health informa tion online - Detail Indication:Unspecified Diagnosis Start:09-Jun-2020 Instruction Type:Patient Education Patient Instructions Indication:Unspecified Diagnosis Start:09-Jun-2020 Instruction Type:Provider Instructions for Treatment How to access health informa tion online Indication:BMI 20.0-20.9, adult Start:23-Apr-2020 Instruction Type:Patient Education How to access health informa tion online - Detail Indication:BMI 20.0-20.9, adult Start:23-Apr-2020 Instruction Type:Patient Education Patient Instructions Indication:BMI 20.0-20.9, adult Start:23-Apr-2020 Instruction Type:Provider Instructions for Treatment How to access health informa tion online Indication:Encounter for annual general medical examination with abnormal findings in adult Start:16-Mar-2020 Instruction Type:Patient Education How to access health informa tion online - Detail Indication:Encounter for annual general medical examination with abnormal findings in adult Start:16-Mar-2020 Instruction Type:Patient Education Patient Instructions Indication:Encounter for annual general medical examination with abnormal findings in adult Start:16-Mar-2020 Instruction Type:Provider Instructions for Treatment [facility]; [facility] Work Phone: reason for referral (narrative)* Outpatient Procedure (Routine) - Pending Review Specialty Diagnoses / Procedures Referred By Bob lantigua Referred To Contact [facility] Diagnoses Partial intestinal obstruction, unspecified cause (HCC) Procedures COLONOSCOPY DIAGNOSTIC COLONOSCOPY FLX DX W/COLLJ SPEC WHEN Sancho Kerr MD [address] [place] [address] [facility] Disease [address] [address] Referral ID Status Reason Start Date Expiration Date Visits Requested Visits Authorized [id number] Pending Review Auto-Generat ed Referral 01/26/2022 01/26/2023 1 1 [facility] for referral (narrative)* Outpatient Procedure (Routine) - Closed Specialty Diagnoses / Procedures Referred By Contac t Referred To Contact [facility] Diagnoses Partial intestinal obstruction, unspecified cause (HCC) Procedures COLONOSCOPY DIAGNOSTIC COLONOSCOPY FLX DX W/COLLJ SPEC WHEN Sancho Kerr MD [address] [place] [id number] [facility] Disease [address] [address] Referral ID Status Reason Start Date Expiration Date V isits Requested Visits Authorized [id number] Closed Auto-Generate d Referral 01/26/2022 01/26/2023 1 1 [facility] for referral (narrative)* Outpatient Procedure (Routine) - Pending Review Specialty Diagnoses / Procedures Referred By Contac t Referred [facility] Diagnoses 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, subsequent encounter Pre-op exam Procedures ECG COMPLETE ECG ROUTINE ECG W/LEAST 12 LDS W/I&R Sasha Espino PA-C [address] [place] [address] [facility] [place] [address] [place] [id number] Referral ID Status Reason Start Date Expiration Date Visits Requested Visits Authorized [id number] Pending Review Auto-Generat ed Referral 12/09/2022 12/08/2023 1 1 [facility] for referral (narrative)* Diagnostic Procedure Only (Routine) - Pending Review Specialty Diagnoses / Procedures Referred By Bob lantigua Referred To Contact [facility] Diagnoses 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, unspecified part of clavicle, subsequent encounter Procedures NM BONE 3 PHASE BONE &/JOINT IMAGING 3 PHASE STUDY Jillian Machuca MD [address] [place] [id number] [facility] [address] [place] [address] Referral ID Status Reason Start Date Expiration Date Visits Requested Visits Authorized [id number] Pending Review Auto-Generat ed Referral 12/31/2022 01/30/2024 1 1 [facility] for referral (narrative)* Outpatient Procedure (Routine) - Authorized Specialty Diagnoses / Procedures Referred By Bob lantigua Ref[facility] Diagnoses MVP (mitral valve prolapse) Procedures ECHO ECHO TTHRC R-T 2D W/WOM-MODE COMPL SPEC&COLR D aBrb Clark APRN.ASSIGNMENT MANAGER [address] [place] [id number] [facility] [place] [id number] [place] [id number] Referral ID Status Reason Start Date Expiration Date Visits Requested Visits Authorized [id number] Authorized Auto-Generat ed Referral 01/11/2023 01/11/2024 1 1 [facility] for referral (narrative)* Diagnostic Procedure Only (Routine) - Pending Review Specialty Diagnoses / Procedures Referred By Bob lantigua Referred To Contact [facility] Diagnoses 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, unspecified part of clavicle, subsequent encounter Procedures XR CLAVICLE 2V LEFT RADEX CLAVICLE COMPLETE Sasha Espino, ELPIDIO-C [address] [place] [id number] [facility] Referral ID Status Reason Start Date Expiration Date Visits Requested Visits Authorized [id number] Pending Review Auto-Generat ed Referral 03/30/2023 04/28/2024 1 1 [facility] for referral (narrative)* Diagnostic Procedure Only (Routine) - Closed Specialty Diagnoses / Procedures Referred By Contac t Referred To Contact [facility] Diagnoses 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, unspecified part of clavicle, subsequent encounter Procedures XR CLAVICLE 2V LEFT RADEX CLAVICLE COMPLETE Sasha Espino PA-C [address] [place], [place] [id number] [facility] Referral ID Status Reason Start Date Expiration Date V isits Requested Visits Authorized [id number] Closed Auto-Generate d Referral 03/30/2023 04/28/2024 1 1 [facility] for referral (narrative)* Diagnostic Procedure Only (Routine) - Pending Review Specialty Diagnoses / Procedures Referred By Bob lantigua Referred To Contact [facility] Diagnoses History of removal of retained hardware Procedures XR CLAVICLE 2V LEFT RADEX CLAVICLE Sasha Lau PA-C [address] [place], [place] [id number] [facility] Referral ID Status Reason Start Date Expiration Date Visits Requested Visits Authorized [id number] Pending Review Auto-Generat ed Referral 05/15/2023 06/13/2024 1 1 [facility] for referral (narrative)* Diagnostic Procedure Only (Routine) - Authorized Specialty Diagnoses / Procedures Referred By Bob t Referred To Contact [facility] IMAGING Diagnoses 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, 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 Procedures XR SHOULDER GENERAL 3V OR MORE AP/TRUE AP/OTHER LEFT RADEX SHOULDER COMPLETE MINIMUM 2 VIEWS Sasha Espino PA-C [address] [place], [place] [id number] Xr Imaging [id number] Referral ID Status Reason Start Date Expiration Date Visits Requested Visits Authorized [id number] Authorized Auto-Generat ed Referral 07/18/2023 08/16/2024 1 1 [facility] for referral (narrative)* Diagnostic Procedure Only (Routine) - Closed Specialty Diagnoses / Procedures Referred By Shinac t Referred To Contact [facility] Diagnoses 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, unspecified part of clavicle, subsequent encounter Procedures NM BONE 3 PHASE BONE &/JOINT IMAGING 3 PHASE STUDY Jillian Machuca MD [address] [place] [address] [facility] [address] [place] [address] Referral ID Status Reason Start Date Expiration Date V isits Requested Visits Authorized [id number] Closed Auto-Generate d Referral 01/03/2023 10/15/2023 1 1 T [facility] for referral (narrative)* Diagnostic Procedure Only (Routine) - Closed Specialty Diagnoses / Procedures Referred By Contac t Referred To Contact [facility]R IMAGING Diagnoses Pain Procedures XR CLAVICLE 2V LEFT RADEX CLAVICLE COMPLETE Sasha Espino PA-C [address] [place], [place] [id number] X[id number] Referral ID Status Reason Start Date Expiration Date V isits Requested Visits Authorized [id number] Closed Auto-Generate d Referral 12/27/2023 01/25/2025 1 1 [facility] for referral (narrative)* Diagnostic Procedure Only (Routine) - Pending Review Specialty Diagnoses / Procedures Referred By Contac t Referred To Contact [facility]R IMAGING Diagnoses 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, unspecified part of clavicle, subsequent encounter Pre-op exam Procedures XR CLAVICLE 2V LEFT RADEX CLAVICLE COMPLETE Sasha Espino PA-C [address] [place], [place] [id number] [facility] [place] [facility] Referral ID Status Reason Start Date Expiration Date Visits Requested Visits Authorized [id number] Pending Review Auto-Generat ed Referral 01/04/2024 02/02/2025 1 1 * Diagnostic Procedure Only (Routine) - Authorized Specialty Diagnoses / Procedures Referred By Bob lantigua Referred To Contact XR IMAGING Diagnoses 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, unspecified part of clavicle, subsequent encounter Pre-op exam Procedures XR CLAVICLE 2V LEFT RADEX CLAVICLE Sasha Lau PA-C [address] [place], [place] [phone] [facility] [place] [address] Referral ID Status Reason Start Date Expiration Date Visits Requested Visits Authorized [id number] Authorized Auto-Generat ed Referral 01/04/2024 02/02/2025 1 1 * Consult, Test, Treat (Routine) - Authorized Specialty Diagnoses / Procedures Referred By Bob lantigua Referred To Contact Diagnoses 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, unspecified part of clavicle, subsequent encounter Pre-op exam Procedures REFER TO PACC - PRE ANESTHESIA CONSULTATION CLINIC OFFICE/OUTPATIENT [facility] 60 MINUTES Sasha Espino PA-C [address] [place], [place] [phone] Referral ID Status Reason Start Date Expiration Date Visits Requested Visits Authorized [id number] Authorized PCP Requested Referral 01/04/2024 01/03/2025 1 1 [facility] for referral (narrative)* Diagnostic Procedure Only (Routine) - Closed Specialty Diagnoses / Procedures Referred By Contac t Referred To Contact [facility]R IMAGING Diagnoses 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, unspecified part of clavicle, subsequent encounter Pre-op exam Procedures XR CLAVICLE 2V LEFT RADEX CLAVICLE COMPLETE Sasha Espino PA-C [address] [address] Xr Imaging [facility] Referral ID Status Reason Start Date Expiration Date V isits Requested Visits Authorized [id number] Closed Auto-Generate d Referral 01/04/2024 02/02/2025 1 1 [facility] for referral (narrative)* Diagnostic Procedure Only (Routine) - Authorized Specialty Diagnoses / Procedures Referred By Contac t Referred To Contact XR IMAGING Diagnoses Status post open reduction and internal fixation (ORIF) of fracture Procedures XR CLAVICLE 2V LEFT RADEX CLAVICLE COMPLETE Adelita Luna PA [address] [address] Xr Imaging [facility] Referral ID Status Reason Start Date Expiration Date Visits Requested Visits Authorized [id number] Authorized Auto-Generat ed Referral 02/21/2024 03/22/2025 1 1 [facility] for referral (narrative)* Diagnostic Procedure Only (Routine) - Closed Specialty Diagnoses / Procedures Referred By Contac t Referred To Contact XR IMAGING Diagnoses 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, unspecified part of clavicle, subsequent encounter Procedures XR CLAVICLE 2V LEFT RADEX CLAVICLE COMPLETE Miguel Angel Vyas MD [address] [place] [address] [place] [address] Referral ID Status Reason Start Date Expiration Date V isits Requested Visits Authorized [id number] Closed Auto-Generate d Referral 01/12/2024 02/10/2025 1 1 T [facility] for referral (narrative)* Diagnostic Procedure Only (Routine) - Closed Specialty Diagnoses / Procedures Referred By Bob t Referred To Contact XR IMAGING Diagnoses Status post open reduction and internal fixation (ORIF) of fracture Procedures XR CLAVICLE 2V LEFT RADEX CLAVICLE COMPLETE Adelita Luna PA [address] [place] [id number] [place] [address] Referral ID Status Reason Start Date Expiration Date V isits Requested Visits Authorized [id number] Closed Auto-Generate d Referral 02/21/2024 03/22/2025 1 1 [facility] for referral (narrative)* Diagnostic Procedure Only (Routine) - Closed Specialty Diagnoses / Procedures Referred By Bob lantigua Referred To Contact XR IMAGING Diagnoses History of removal of retained hardware Procedures XR CLAVICLE 2V LEFT RADEX CLAVICLE COMPLETE Jillian Machuca MD [address] [place] [address] [place] [address] Referral ID Status Reason Start Date Expiration Date V isits Requested Visits Authorized [id number] Closed Auto-Generate d Referral 03/06/2023 04/04/2024 1 1 T [facility] for referral (narrative)* Diagnostic Procedure Only (Routine) - Closed Specialty Diagnoses / Procedures Referred By Bob lantigua Referred To Contact XR IMAGING Diagnoses Status post open reduction and internal fixation (ORIF) of fracture 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, subsequent encounter Procedures XR CLAVICLE 2V LEFT RADEX CLAVICLE Jillian Aguirre MD [address] [phone] [place] [address] Referral ID Status Reason Start Date Expiration Date V isits Requested Visits Authorized [id number] Closed Auto-Generate d Referral 04/11/2024 05/11/2025 1 1 [facility] for referral (narrative)* Diagnostic Procedure Only (Routine) - Closed Specialty Diagnoses / Procedures Referred By Bob lantigua Referred To Contact XR IMAGING Diagnoses 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, unspecified part of clavicle, subsequent encounter Procedures XR CLAVICLE 2V LT X-RAY CLAVICLE Jillian Machuca MD [address] [place] [address] Xr Imaging [place] [address] Referral ID Status Reason Start Date Expiration Date V isits Requested Visits Authorized [id number] Closed Auto-Generate d Referral 08/16/2021 09/15/2022 1 1 [facility] for referral (narrative)* Diagnostic Procedure Only (Routine) - Closed Specialty Diagnoses / Procedures Referred By Bob lantigua Referred To Contact XR IMAGING Diagnoses 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, unspecified part of clavicle, subsequent encounter Procedures XR CLAVICLE 2V LT X-RAY CLAVICLE Jillian Machuca MD [address] [place] [phone] Xr Imaging [place] [address] Referral ID Status Reason Start Date Expiration Date V isits Requested Visits Authorized [id number] Closed Auto-Generate d Referral 05/17/2021 06/16/2022 1 1 T [facility] for referral (narrative)No reason for referral information [facility]* Outpatient Procedure (Routine) - Closed Specialty Diagnoses / Procedures Referred By Bob lantigua Referred To Contact [facility] Diagnoses Partial intestinal obstruction, unspecified cause (HCC) Procedures COLONOSCOPY DIAGNOSTIC COLONOSCOPY FLX DX W/COLLJ SPEC WHEN PFRMD Sancho Diaz MD [address] [place] [address] [facility] [address] [place] [address] Referral ID Status Reason Start Date Expiration Date V isits Requested Visits Authorized [id number] Closed Auto-Generate d Referral 01/26/2022 01/26/2023 1 1 [facility] for visit Narrative* Diagnostic Procedure Only (Routine) - Closed Specialty Diagnoses / Procedures Referred By Contac t Referred To Contact XR IMAGING Diagnoses 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, unspecified part of clavicle, subsequent encounter Procedures XR CLAVICLE 2V LEFT RADEX CLAVICLE COMPLETE Sasha Espino, PA-C [address] [place], [place] [phone] Xr Imaging Referral ID Status Reason Start Date Expiration Date V isits Requested Visits Authorized [id number] Closed Auto-Generate d Referral 03/30/2023 04/28/2024 1 1 [facility] for visit Narrative* Diagnostic Procedure Only (Routine) - Closed Specialty Diagnoses / Procedures Referred By Contac t Referred To Contact [facility] Diagnoses 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, unspecified part of clavicle, subsequent encounter Procedures NM BONE 3 PHASE BONE &/JOINT IMAGING 3 PHASE STUDY Jillian Machuca MD [address] [place] [phone] [facility] [address] [place] [address] Referral ID Status Reason Start Date Expiration Date V isits Requested Visits Authorized [id number] Closed Auto-Generate d Referral 01/03/2023 10/15/2023 1 1 [facility] for visit Narrative* Diagnostic Procedure Only (Routine) - Closed Specialty Diagnoses / Procedures Referred By Contac t Referred To Contact XR IMAGING Diagnoses Pain Procedures XR CLAVICLE 2V LEFT RADEX CLAVICLE COMPLETE Sasha Espino, PA-C [address] [place], [place] [id number] Xr Imaging [facility] Referral ID Status Reason Start Date Expiration Date V isits Requested Visits Authorized [id number] Closed Auto-Generate d Referral 12/27/2023 01/25/2025 1 1 [facility] for visit Narrative* Diagnostic Procedure Only (Routine) - Closed Specialty Diagnoses / Procedures Referred By Contac t Referred To Contact XR IMAGING Diagnoses 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 [address] Xr Imaging [place] [address] Referral ID Status Reason Start Date Expiration Date V isits Requested Visits Authorized [id number] Closed Auto-Generate d Referral 01/12/2024 02/10/2025 1 1 [facility] for visit Narrative* Diagnostic Procedure Only (Routine) - Closed Specialty Diagnoses / Procedures Referred By Contac t Referred To Contact XR IMAGING Diagnoses History of removal of retained hardware Procedures XR CLAVICLE 2V LEFT RADEX CLAVICLE COMPLETE Jillian Machuca MD [address] [place] [address] Xr Imaging [place] [address] Referral ID Status Reason Start Date Expiration Date V isits Requested Visits Authorized [id number] Closed Auto-Generate d Referral 03/06/2023 04/04/2024 1 1 [facility] for visit Narrative* Outpatient Procedure (Routine) - Closed Specialty Diagnoses / Procedures Referred By Bob t Referred To Contact [facility] Diagnoses Traumatic long thoracic nerve palsy, initial encounter Procedures EMG(NEURO/NI) NERVE CONDUCTION STUDIES 9-10 STUDIES Aspen Yu MD [facility] [place] [address] Phone: tel: fax: Neurology [address] [place] [address] Phone: tel: Referral ID Status Reason Start Date Expiration Date V isits Requested Visits Authorized [id number] Closed Auto-Generate d Referral 03/13/2025 10/15/2025 1 1 [facility] Reason for Referral Status Reason Specialty Diagnoses / Procedures Referred By Contact Referred To Contact Pending Review Specialty Services Required/[facility] Diagnoses Closed fracture of ramus of left pubis, initial encounter ([facility]) Remy Holden MD [address] [facility] [address] [place] [address] Specialty Diagnoses / Procedures Referred By Bob t Referred To Contact MR IMAGING Diagnoses Chronic left shoulder pain Procedures MRI SHOULDER WO IVCON LT MRI ANY JT UPPER EXTREMITY W/O CONTRAST MATRL Jillian Machuca MD [address] [place] [address] Mr Imaging Referral ID Status Reason Start Date Expiration Date V isits Requested Visits Authorized [id number] Closed Auto-Generate d Referral 02/14/2022 03/16/2023 1 1 Specialty Diagnoses / Procedures Referred By Bob t Referred To Contact Diagnoses 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, subsequent encounter Menopause Procedures BONE DENSITY AXIAL (HIP, PELVIS, SPINE) Fili Wen MD [address] [phone] Referral ID Status Reason Start Date Expiration Date V isits Requested Visits Authorized [id number] Pending Review 10/04/2021 10/29/2022 1 1 Specialty Diagnoses / Procedures Referred By Bob t Referred To Contact Diagnoses 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, subsequent encounter Menopause Fili Wen MD [address] [phone] Referral ID Status Reason Start Date Expiration Date V isits Requested Visits Authorized [id number] New Request 06/15/2022 07/10/2023 1 1 Specialty Diagnoses / Procedures Referred By Bob t Referred To Contact CT IMAGING Diagnoses Closed fracture of left shoulder, sequela Procedures CT SHOULDER WO IVCON LT CT UPPER EXTREMITY W/O CONTRAST MATERIAL Jillian Machuca MD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 smoker Status:Active Brother 2 Status:Active Father Comments:Type II diabetes, h igh cholesterol, aneurysm at 68 of ASCVD Status:Active Mother Comments:anxiety, heart dise ase, ,gastric ulcer of COPD at 79 yo Status:Active Son 1 Status:Active Son 2 Status:Active Unknown Family Member Name Dates Details Brother 1 Comments:continue current tr eatment plan alcoholism, heart disease, anxiety, HTN, high cholesterol smoker Status:Active Brother 2 Status:Active Father Comments:Type II diabetes, h igh cholesterol, aneurysm at 68 of ASCVD Status:Active Mother Comments:anxiety, heart dise ase, ,gastric ulcer of COPD at 79 yo Status:Active Son 1 Status:Active Son 2 Status:Active Unknown Family Member Name Dates Details Brother 1 Comments:continue current tr eatment plan alcoholism, heart disease, anxiety, HTN, high cholesterol smoker Status:Active Brother 2 Status:Active Father Comments:Type II diabetes, h igh cholesterol, aneurysm at 68 of ASCVD Status:Active Mother Comments:anxiety, heart dise ase, ,gastric ulcer of COPD at 79 yo Status:Active Son 1 Status:Active Son 2 Status:Active Unknown Family Member Name Dates Details Brother 1 Comments:continue current tr eatment plan alcoholism, heart disease, anxiety, HTN, high cholesterol smoker Status:Active Brother 2 Status:Active Father Comments:Type II diabetes, h igh cholesterol, aneurysm at 68 of ASCVD Status:Active Mother Comments:anxiety, heart dise ase, ,gastric ulcer of COPD at 79 yo Status:Active Son 1 Status:Active Son 2 Status:Active Unknown Family Member Name Dates Details Brother 1 Comments:continue current tr eatment plan alcoholism, heart disease, anxiety, HTN, high cholesterol smoker Status:Active Brother 2 Status:Active Father Comments:Type II diabetes, h igh cholesterol, aneurysm at 68 of ASCVD Status:Active Mother Comments:anxiety, heart dise ase, ,gastric ulcer of COPD at 79 yo Status:Active Son 1 Status:Active Son 2 Status:Active Unknown Family Member Name Dates Details Brother 1 Comments:continue current tr eatment plan alcoholism, heart disease, anxiety, HTN, high cholesterol smoker Status:Active Brother 2 Status:Active Father Comments:Type II diabetes, h igh cholesterol, aneurysm at 68 of ASCVD Status:Active Mother Comments:anxiety, heart dise ase, ,gastric ulcer of COPD at 79 yo Status:Active Son 1 Status:Active Son 2 Status:Active Unknown Family Member Name Dates Details Brother 1 Comments:continue current tr eatment plan alcoholism, heart disease, anxiety, HTN, high cholesterol smoker Status:Active Brother 2 Status:Active Father Comments:Type II diabetes, h igh cholesterol, aneurysm at 68 of ASCVD Status:Active Mother Comments:anxiety, heart dise ase, ,gastric ulcer of COPD at 79 yo Status:Active Son 1 Status:Active Son 2 Status:Active Unknown Family Member Name Dates Details Brother 1 Comments:continue current tr eatment plan alcoholism, heart disease, anxiety, HTN, high cholesterol smoker Status:Active Brother 2 Status:Active Father Comments:Type II diabetes, h igh cholesterol, aneurysm at 68 of ASCVD Status:Active Mother Comments:anxiety, heart dise ase, ,gastric ulcer of COPD at 79 yo Status:Active Son 1 Status:Active Son 2 Status:Active Unknown Family Member Name Dates Details Brother 1 Comments:continue current tr eatment plan alcoholism, heart disease, anxiety, HTN, high cholesterol smoker Status:Active Brother 2 Status:Active Father Comments:Type II diabetes, h igh cholesterol, aneurysm at 68 of ASCVD Status:Active Mother Comments:anxiety, heart dise ase, ,gastric ulcer of COPD at 79 yo Status:Active Son 1 Status:Active Son 2 Status:Active Unknown Family Member Name Dates Details Brother 1 Comments:continue current tr eatment plan alcoholism, heart disease, anxiety, HTN, high cholesterol smoker Status:Active Brother 2 Status:Active Father Comments:Type II diabetes, h igh cholesterol, aneurysm at 68 of ASCVD Status:Active Mother Comments:anxiety, heart dise ase, ,gastric ulcer of COPD at 79 yo Status:Active Son 1 Status:Active Son 2 Status:Active Unknown Family Member Name Dates Details Brother 1 Comments:continue current tr eatment plan alcoholism, heart disease, anxiety, HTN, high cholesterol smoker Status:Active Brother 2 Status:Active Father Comments:Type II diabetes, h igh cholesterol, aneurysm at 68 of ASCVD Status:Active Mother Comments:anxiety, heart dise ase, ,gastric ulcer of COPD at 79 yo Status:Active Son 1 Status:Active Son 2 Status:Active Unknown Family Member Name Dates Details Brother 1 Comments:continue current tr eatment plan alcoholism, heart disease, anxiety, HTN, high cholesterol smoker Status:Active Brother 2 Status:Active Father Comments:Type II diabetes, h igh cholesterol, aneurysm at 68 of ASCVD Status:Active Mother Comments:anxiety, heart dise ase, ,gastric ulcer of COPD at 79 yo Status:Active Son 1 Status:Active Son 2 Status:Active Unknown Family Member Name Dates Details Brother 1 Comments:continue current tr eatment plan alcoholism, heart disease, anxiety, HTN, high cholesterol smoker Status:Active Brother 2 Status:Active Father Comments:Type II diabetes, h igh cholesterol, aneurysm at 68 of ASCVD Status:Active Mother Comments:anxiety, heart dise ase, ,gastric ulcer of COPD at 79 yo Status:Active Son 1 Status:Active Son 2 Status:Active Unknown Family Member Name Dates Details Brother 1 Comments:continue current tr eatment plan alcoholism, heart disease, anxiety, HTN, high cholesterol smoker Status:Active Brother 2 Status:Active Father Comments:Type II diabetes, h igh cholesterol, aneurysm at 68 of ASCVD Status:Active Mother Comments:anxiety, heart dise ase, ,gastric ulcer of COPD at 79 yo Status:Active Son 1 Status:Active Son 2 Status:Active Unknown Family Member Name Dates Details Brother 1 Comments:continue current tr eatment plan alcoholism, heart disease, anxiety, HTN, high cholesterol smoker Status:Active Brother 2 Status:Active Father Comments:Type II diabetes, h igh cholesterol, aneurysm at 68 of ASCVD Status:Active Mother Comments:anxiety, heart dise ase, ,gastric ulcer of COPD at 79 yo Status:Active Son 1 Status:Active Son 2 Status:Active Unknown Family Member Name Dates Details Brother 1 Comments:continue current tr eatment plan alcoholism, heart disease, anxiety, HTN, high cholesterol smoker Status:Active Brother 2 Status:Active Father Comments:Type II diabetes, h igh cholesterol, aneurysm at 68 of ASCVD Status:Active Mother Comments:anxiety, heart dise ase, ,gastric ulcer of COPD at 79 yo Status:Active Son 1 Status:Active Son 2 Status:Active Unknown Family Member Name Dates Details Brother 1 Comments:continue current tr eatment plan alcoholism, heart disease, anxiety, HTN, high cholesterol smoker Status:Active Brother 2 Status:Active Father Comments:Type II diabetes, h igh cholesterol, aneurysm at 68 of ASCVD Status:Active Mother Comments:anxiety, heart dise ase, ,gastric ulcer of COPD at 79 yo Status:Active Son 1 Status:Active Son 2 Status:Active Unknown Family Member Name Dates Details Brother 1 Comments:continue current tr eatment plan alcoholism, heart disease, anxiety, HTN, high cholesterol smoker Status:Active Brother 2 Status:Active Father Comments:Type II diabetes, h igh cholesterol, aneurysm at 68 of ASCVD Status:Active Mother Comments:anxiety, heart dise ase, ,gastric ulcer of COPD at 79 yo Status:Active Son 1 Status:Active Son 2 Status:Active Unknown Family Member Name Dates Details Brother 1 Comments:continue current tr eatment plan alcoholism, heart disease, anxiety, HTN, high cholesterol smoker Status:Active Brother 2 Status:Active Father Comments:Type II diabetes, h igh cholesterol, aneurysm at 68 of ASCVD Status:Active Mother Comments:anxiety, heart dise ase, ,gastric ulcer of COPD at 79 yo Status:Active Son 1 Status:Active Son 2 Status:Active Unknown Family Member Name Dates Details Brother 1 Comments:continue current tr eatment plan alcoholism, heart disease, anxiety, HTN, high cholesterol smoker Status:Active Brother 2 Status:Active Father Comments:Type II diabetes, h igh cholesterol, aneurysm at 68 of ASCVD Status:Active Mother Comments:anxiety, heart dise ase, ,gastric ulcer of COPD at 79 yo Status:Active Son 1 Status:Active Son 2 Status:Active Unknown Family Member Name Dates Details Brother 1 Comments:continue current tr eatment plan alcoholism, heart disease, anxiety, HTN, high cholesterol smoker Status:Active Brother 2 Status:Active Father Comments:Type II diabetes, h igh cholesterol, aneurysm at 68 of ASCVD Status:Active Mother Comments:anxiety, heart dise ase, ,gastric ulcer of COPD at 79 yo Status:Active Son 1 Status:Active Son 2 Status:Active Unknown Family Member Name Dates Details Brother 1 Comments:continue current tr eatment plan alcoholism, heart disease, anxiety, HTN, high cholesterol smoker Status:Active Brother 2 Status:Active Father Comments:Type II diabetes, h igh cholesterol, aneurysm at 68 of ASCVD Status:Active Mother Comments:anxiety, heart dise ase, ,gastric ulcer of COPD at 79 yo Status:Active Son 1 Status:Active Son 2 Status:Active Unknown Family Member Name Dates Details Brother 1 Comments:continue current tr eatment plan alcoholism, heart disease, anxiety, HTN, high cholesterol smoker Status:Active Brother 2 Status:Active Father Comments:Type II diabetes, h igh cholesterol, aneurysm at 68 of ASCVD Status:Active Mother Comments:anxiety, heart dise ase, ,gastric ulcer of COPD at 79 yo Status:Active Son 1 Status:Active Son 2 Status:Active Unknown Family Member Name Dates Details Brother 1 Comments:continue current tr eatment plan alcoholism, heart disease, anxiety, HTN, high cholesterol smoker Status:Active Brother 2 Status:Active Father Comments:Type II diabetes, h igh cholesterol, aneurysm at 68 of ASCVD Status:Active Mother Comments:anxiety, heart dise ase, ,gastric ulcer of COPD at 79 yo Status:Active Son 1 Status:Active Son 2 Status:Active Unknown Family Member Name Dates Details Brother 1 Comments:continue current tr eatment plan alcoholism, heart disease, anxiety, HTN, high cholesterol smoker Status:Active Brother 2 Status:Active Father Comments:Type II diabetes, h igh cholesterol, aneurysm at 68 of ASCVD Status:Active Mother Comments:anxiety, heart dise ase, ,gastric ulcer of COPD at 79 yo Status:Active Son 1 Status:Active Son 2 Status:Active Unknown Family Member Name Dates Details Brother 1 Comments:continue current tr eatment plan alcoholism, heart disease, anxiety, HTN, high cholesterol smoker Status:Active Brother 2 Status:Active Father Comments:Type II diabetes, h igh cholesterol, aneurysm at 68 of ASCVD Status:Active Mother Comments:anxiety, heart dise ase, ,gastric ulcer of COPD at 79 yo Status:Active Son 1 Status:Active Son 2 Status:Active Unknown Family Member Name Dates Details Brother 1 Comments:continue current tr eatment plan alcoholism, heart disease, anxiety, HTN, high cholesterol smoker Status:Active Brother 2 Status:Active Father Comments:Type II diabetes, h igh cholesterol, aneurysm at 68 of ASCVD Status:Active Mother Comments:anxiety, heart dise ase, ,gastric ulcer of COPD at 79 yo Status:Active Son 1 Status:Active Son 2 Status:Active Unknown Family Member Name Dates Details Brother 1 Comments:continue current tr eatment plan alcoholism, heart disease, anxiety, HTN, high cholesterol smoker Status:Active Brother 2 Status:Active Father Comments:Type II diabetes, h igh cholesterol, aneurysm at 68 of ASCVD Status:Active Mother Comments:anxiety, heart dise ase, ,gastric ulcer of COPD at 79 yo Status:Active Son 1 Status:Active Son 2 Status:Active Unknown Family Member Name Dates Details Brother 1 Comments:continue current tr eatment plan alcoholism, heart disease, anxiety, HTN, high cholesterol smoker Status:Active Brother 2 Status:Active Father Comments:Type II diabetes, h igh cholesterol, aneurysm at 68 of ASCVD Status:Active Mother Comments:anxiety, heart dise ase, ,gastric ulcer of COPD at 79 yo Status:Active Son 1 Status:Active Son 2 Status:Active Unknown Family Member Name Dates Details Brother 1 Comments:continue current tr eatment plan alcoholism, heart disease, anxiety, HTN, high cholesterol smoker Status:Active Brother 2 Status:Active Father Comments:Type II diabetes, h igh cholesterol, aneurysm at 68 of ASCVD Status:Active Mother Comments:anxiety, heart dise ase, ,gastric ulcer of COPD at 79 yo Status:Active Son 1 Status:Active Son 2 Status:Active Unknown Family Member Name Dates Details Brother 1 Comments:continue current tr eatment plan alcoholism, heart disease, anxiety, HTN, high cholesterol smoker Status:Active Brother 2 Status:Active Father Comments:Type II diabetes, h igh cholesterol, aneurysm at 68 of ASCVD Status:Active Mother Comments:anxiety, heart dise ase, ,gastric ulcer of COPD at 79 yo Status:Active Son 1 Status:Active Son 2 Status:Active Unknown Family Member Name Dates Details Brother 1 Comments:continue current tr eatment plan alcoholism, heart disease, anxiety, HTN, high cholesterol smoker Status:Active Brother 2 Status:Active Father Comments:Type II diabetes, h igh cholesterol, aneurysm at 68 of ASCVD Status:Active Mother Comments:anxiety, heart dise ase, ,gastric ulcer of COPD at 79 yo Status:Active Son 1 Status:Active Son 2 Status:Active Unknown Family Member Name Dates Details Brother 1 Comments:continue current tr eatment plan alcoholism, heart disease, anxiety, HTN, high cholesterol smoker Status:Active Brother 2 Status:Active Father Comments:Type II diabetes, h igh cholesterol, aneurysm at 68 of ASCVD Status:Active Mother Comments:anxiety, heart dise ase, ,gastric ulcer of COPD at 79 yo Status:Active Son 1 Status:Active Son 2 Status:Active Unknown Family Member Name Dates Details Brother 1 Comments:continue current tr eatment plan alcoholism, heart disease, anxiety, HTN, high cholesterol smoker Status:Active Brother 2 Status:Active Father Comments:Type II diabetes, h igh cholesterol, aneurysm at 68 of ASCVD Status:Active Mother Comments:anxiety, heart dise ase, ,gastric ulcer of COPD at 79 yo Status:Active Son 1 Status:Active Son 2 Status:Active Relationship Condition Age at Onset Recorded Date/T toan father Diabetes mellitus Unknown Hypertension Unknown grandmother Diabetes mellitus Unknown brother Hypertension Unknown mother Chronic obstructive pulmonary disease Unk nown Chronic mental illness Unknown Unknown Family Member Name Dates Details Brother 1 Comments:continue current tr eatment plan alcoholism, heart disease, anxiety, HTN, high cholesterol smoker Status:Active Brother 2 Status:Active Father Comments:Type II diabetes, h igh cholesterol, aneurysm at 68 of ASCVD Status:Active Mother Comments:anxiety, heart dise ase, ,gastric ulcer of COPD at 79 yo Status:Active Son 1 Status:Active Son 2 Status:Active Unknown Family Member Name Dates Details Brother 1 Comments:continue current tr eatment plan alcoholism, heart disease, anxiety, HTN, high cholesterol smoker Status:Active Brother 2 Status:Active Father Comments:Type II diabetes, h igh cholesterol, aneurysm at 68 of ASCVD Status:Active Mother Comments:anxiety, heart dise ase, ,gastric ulcer of COPD at 79 yo Status:Active Son 1 Status:Active Son 2 Status:Active Unknown Family Member Name Dates Details Brother 1 Comments:continue current tr eatment plan alcoholism, heart disease, anxiety, HTN, high cholesterol smoker Status:Active Brother 2 Status:Active Father Comments:Type II diabetes, h igh cholesterol, aneurysm at 68 of ASCVD Status:Active Mother Comments:anxiety, heart dise ase, ,gastric ulcer of COPD at 79 yo Status:Active Son 1 Status:Active Son 2 Status:Active Unknown Family Member Name Dates Details Brother 1 Comments:continue current tr eatment plan alcoholism, heart disease, anxiety, HTN, high cholesterol smoker Status:Active Brother 2 Status:Active Father Comments:Type II diabetes, h igh cholesterol, aneurysm at 68 of ASCVD Status:Active Mother Comments:anxiety, heart dise ase, ,gastric ulcer of COPD at 79 yo Status:Active Son 1 Status:Active Son 2 Status:Active Unknown Family Member Name Dates Details Brother 1 Comments:continue current tr eatment plan alcoholism, heart disease, anxiety, HTN, high cholesterol smoker Status:Active Brother 2 Status:Active Father Comments:Type II diabetes, h igh cholesterol, aneurysm at 68 of ASCVD Status:Active Mother Comments:anxiety, heart dise ase, ,gastric ulcer of COPD at 79 yo Status:Active Son 1 Status:Active Son 2 Status:Active Unknown Family Member Name Dates Details Brother 1 Comments:continue current tr eatment plan alcoholism, heart disease, anxiety, HTN, high cholesterol smoker Status:Active Brother 2 Status:Active Father Comments:Type II diabetes, h igh cholesterol, aneurysm at 68 of ASCVD Status:Active Mother Comments:anxiety, heart dise ase, ,gastric ulcer of COPD at 79 yo Status:Active Son 1 Status:Active Son 2 Status:Active Unknown Family Member Name Dates Details Brother 1 Comments:continue current tr eatment plan alcoholism, heart disease, anxiety, HTN, high cholesterol smoker Status:Active Brother 2 Status:Active Father Comments:Type II diabetes, h igh cholesterol, aneurysm at 68 of ASCVD Status:Active Mother Comments:anxiety, heart dise ase, ,gastric ulcer of COPD at 79 yo Status:Active Son 1 Status:Active Son 2 Status:Active Unknown Family Member Name Dates Details Brother 1 Comments:continue current tr eatment plan alcoholism, heart disease, anxiety, HTN, high cholesterol smoker Status:Active Brother 2 Status:Active Father Comments:Type II diabetes, h igh cholesterol, aneurysm at 68 of ASCVD Status:Active Mother Comments:anxiety, heart dise ase, ,gastric ulcer of COPD at 79 yo Status:Active Son 1 Status:Active Son 2 Status:Active Unknown Family Member Name Dates Details Brother 1 Comments:continue current tr eatment plan alcoholism, heart disease, anxiety, HTN, high cholesterol smoker Status:Active Brother 2 Status:Active Father Comments:Type II diabetes, h igh cholesterol, aneurysm at 68 of ASCVD Status:Active Mother Comments:anxiety, heart dise ase, ,gastric ulcer of COPD at 79 yo Status:Active Son 1 Status:Active Son 2 Status:Active Unknown Family Member Name Dates Details Brother 1 Comments:continue current tr eatment plan alcoholism, heart disease, anxiety, HTN, high cholesterol smoker Status:Active Brother 2 Status:Active Father Comments:Type II diabetes, h igh cholesterol, aneurysm at 68 of ASCVD Status:Active Mother Comments:anxiety, heart dise ase, ,gastric ulcer of COPD at 79 yo Status:Active Son 1 Status:Active Son 2 Status:Active Unknown Family Member Name Dates Details Brother 1 Comments:continue current tr eatment plan alcoholism, heart disease, anxiety, HTN, high cholesterol smoker Status:Active Brother 2 Status:Active Father Comments:Type II diabetes, h igh cholesterol, aneurysm at 68 of ASCVD Status:Active Mother Comments:anxiety, heart dise ase, ,gastric ulcer of COPD at 79 yo Status:Active Son 1 Status:Active Son 2 Status:Active Unknown Family Member Name Dates Details Brother 1 Comments:continue current tr eatment plan alcoholism, heart disease, anxiety, HTN, high cholesterol smoker Status:Active Brother 2 Status:Active Father Comments:Type II diabetes, h igh cholesterol, aneurysm at 68 of ASCVD Status:Active Mother Comments:anxiety, heart dise ase, ,gastric ulcer of COPD at 79 yo Status:Active Son 1 Status:Active Son 2 Status:Active Unknown Family Member Name Dates Details Brother 1 Comments:continue current tr eatment plan alcoholism, heart disease, anxiety, HTN, high cholesterol smoker Status:Active Brother 2 Status:Active Father Comments:Type II diabetes, h igh cholesterol, aneurysm at 68 of ASCVD Status:Active Mother Comments:anxiety, heart dise ase, ,gastric ulcer of COPD at 79 yo Status:Active Son 1 Status:Active Son 2 Status:Active Unknown Family Member Name Dates Details Brother 1 Comments:continue current tr eatment plan alcoholism, heart disease, anxiety, HTN, high cholesterol smoker Status:Active Brother 2 Status:Active Father Comments:Type II diabetes, h igh cholesterol, aneurysm at 68 of ASCVD Status:Active Mother Comments:anxiety, heart dise ase, ,gastric ulcer of COPD at 79 yo Status:Active Son 1 Status:Active Son 2 Status:Active Unknown Family Member Name Dates Details Brother 1 Comments:continue current tr eatment plan alcoholism, heart disease, anxiety, HTN, high cholesterol smoker Status:Active Brother 2 Status:Active Father Comments:Type II diabetes, h igh cholesterol, aneurysm at 68 of ASCVD Status:Active Mother Comments:anxiety, heart dise ase, ,gastric ulcer of COPD at 79 yo Status:Active Son 1 Status:Active Son 2 Status:Active Unknown Family Member Name Dates Details Brother 1 Comments:continue current tr eatment plan alcoholism, heart disease, anxiety, HTN, high cholesterol smoker Status:Active Brother 2 Status:Active Father Comments:Type II diabetes, h igh cholesterol, aneurysm at 68 of ASCVD Status:Active Mother Comments:anxiety, heart dise ase, ,gastric ulcer of COPD at 79 yo Status:Active Son 1 Status:Active Son 2 Status:Active Unknown Family Member Name Dates Details Brother 1 Comments:continue current tr eatment plan alcoholism, heart disease, anxiety, HTN, high cholesterol smoker Status:Active Brother 2 Status:Active Father Comments:Type II diabetes, h igh cholesterol, aneurysm at 68 of ASCVD Status:Active Mother Comments:anxiety, heart dise ase, ,gastric ulcer of COPD at 79 yo Status:Active Son 1 Status:Active Son 2 Status:Active Unknown Family Member Name Dates Details Brother 1 Comments:continue current tr eatment plan alcoholism, heart disease, anxiety, HTN, high cholesterol smoker Status:Active Brother 2 Status:Active Father Comments:Type II diabetes, h igh cholesterol, aneurysm at 68 of ASCVD Status:Active Mother Comments:anxiety, heart dise ase, ,gastric ulcer of COPD at 79 yo Status:Active Son 1 Status:Active Son 2 Status:Active Unknown Family Member Name Dates Details Brother 1 Comments:continue current tr eatment plan alcoholism, heart disease, anxiety, HTN, high cholesterol smoker Status:Active Brother 2 Status:Active Father Comments:Type II diabetes, h igh cholesterol, aneurysm at 68 of ASCVD Status:Active Mother Comments:anxiety, heart dise ase, ,gastric ulcer of COPD at 79 yo Status:Active Son 1 Status:Active Son 2 Status:Active Unknown Family Member Name Dates Details Brother 1 Comments:continue current tr eatment plan alcoholism, heart disease, anxiety, HTN, high cholesterol smoker Status:Active Brother 2 Status:Active Father Comments:Type II diabetes, h igh cholesterol, aneurysm at 68 of ASCVD Status:Active Mother Comments:anxiety, heart dise ase, ,gastric ulcer of COPD at 79 yo Status:Active Son 1 Status:Active Son 2 Status:Active Unknown Family Member Name Dates Details Brother 1 Comments:continue current tr eatment plan alcoholism, heart disease, anxiety, HTN, high cholesterol smoker Status:Active Brother 2 Status:Active Father Comments:Type II diabetes, h igh cholesterol, aneurysm at 68 of ASCVD Status:Active Mother Comments:anxiety, heart dise ase, ,gastric ulcer of COPD at 79 yo Status:Active Son 1 Status:Active Son 2 Status:Active Instructions Name Dates Details How to access health informa tion online Indication:Encounter for annual general medical examination with abnormal findings in adult Start:16-Mar-2020 Instruction Type:Patient Edu cation How to access health informa tion online - Detail Indication:Encounter for annual general medical examination with abnormal findings in adult Start:16-Mar-2020 Instruction Type:Patient Edu cation Patient Instructions Indication:Encounter for annual general medical examination with abnormal findings in adult Start:16-Mar-2020 Instruction Type:Provider Instructions for Treatment Name Dates Details How to access health informa tion online Indication:BMI 20.0-20.9, adult Start:23-Apr-2020 Instruction Type:Patient Edu cation How to access health informa tion online - Detail Indication:BMI 20.0-20.9, adult Start:23-Apr-2020 Instruction Type:Patient Edu cation Patient Instructions Indication:BMI 20.0-20.9, adult Start:23-Apr-2020 Instruction Type:Provider Instructions for Treatment How to access health informa tion online Indication:Encounter for annual general medical examination with abnormal findings in adult Start:16-Mar-2020 Instruction Type:Patient Edu cation How to access health informa tion online - Detail Indication:Encounter for annual general medical examination with abnormal findings in adult Start:16-Mar-2020 Instruction Type:Patient Edu cation Patient Instructions Indication:Encounter for annual general medical examination with abnormal findings in adult Start:16-Mar-2020 Instruction Type:Provider Instructions for Treatment Name Dates Details How to access health informa tion online Indication:BMI 20.0-20.9, adult Start:23-Apr-2020 Instruction Type:Patient Edu cation How to access health informa tion online - Detail Indication:BMI 20.0-20.9, adult Start:23-Apr-2020 Instruction Type:Patient Edu cation Patient Instructions Indication:BMI 20.0-20.9, adult Start:23-Apr-2020 Instruction Type:Provider Instructions for Treatment How to access health informa tion online Indication:Encounter for annual general medical examination with abnormal findings in adult Start:16-Mar-2020 Instruction Type:Patient Edu cation How to access health informa tion online - Detail Indication:Encounter for annual general medical examination with abnormal findings in adult Start:16-Mar-2020 Instruction Type:Patient Edu cation Patient Instructions Indication:Encounter for annual general medical examination with abnormal findings in adult Start:16-Mar-2020 Instruction Type:Provider Instructions for Treatment Name Dates Details How to access health informa tion online Indication:BMI 20.0-20.9, adult Start:23-Apr-2020 Instruction Type:Patient Edu cation How to access health informa tion online - Detail Indication:BMI 20.0-20.9, adult Start:23-Apr-2020 Instruction Type:Patient Edu cation Patient Instructions Indication:BMI 20.0-20.9, adult Start:23-Apr-2020 Instruction Type:Provider Instructions for Treatment How to access health informa tion online Indication:Encounter for annual general medical examination with abnormal findings in adult Start:16-Mar-2020 Instruction Type:Patient Edu cation How to access health informa tion online - Detail Indication:Encounter for annual general medical examination with abnormal findings in adult Start:16-Mar-2020 Instruction Type:Patient Edu cation Patient Instructions Indication:Encounter for annual general medical examination with abnormal findings in adult Start:16-Mar-2020 Instruction Type:Provider Instructions for Treatment Name Dates Details How to access health informa tion online Indication:BMI 20.0-20.9, adult Start:23-Apr-2020 Instruction Type:Patient Edu cation How to access health informa tion online - Detail Indication:BMI 20.0-20.9, adult Start:23-Apr-2020 Instruction Type:Patient Edu cation Patient Instructions Indication:BMI 20.0-20.9, adult Start:23-Apr-2020 Instruction Type:Provider Instructions for Treatment How to access health informa tion online Indication:Encounter for annual general medical examination with abnormal findings in adult Start:16-Mar-2020 Instruction Type:Patient Edu cation How to access health informa tion online - Detail Indication:Encounter for annual general medical examination with abnormal findings in adult Start:16-Mar-2020 Instruction Type:Patient Edu cation Patient Instructions Indication:Encounter for annual general medical examination with abnormal findings in adult Start:16-Mar-2020 Instruction Type:Provider Instructions for Treatment Name Dates Details How to access health informa tion online Indication:BMI 20.0-20.9, adult Start:23-Apr-2020 Instruction Type:Patient Edu cation How to access health informa tion online - Detail Indication:BMI 20.0-20.9, adult Start:23-Apr-2020 Instruction Type:Patient Edu cation Patient Instructions Indication:BMI 20.0-20.9, adult Start:23-Apr-2020 Instruction Type:Provider Instructions for Treatment How to access health informa tion online Indication:Encounter for annual general medical examination with abnormal findings in adult Start:16-Mar-2020 Instruction Type:Patient Edu cation How to access health informa tion online - Detail Indication:Encounter for annual general medical examination with abnormal findings in adult Start:16-Mar-2020 Instruction Type:Patient Edu cation Patient Instructions Indication:Encounter for annual general medical examination with abnormal findings in adult Start:16-Mar-2020 Instruction Type:Provider Instructions for Treatment Name Dates Details How to access health informa tion online Indication:BMI 20.0-20.9, adult Start:23-Apr-2020 Instruction Type:Patient Edu cation How to access health informa tion online - Detail Indication:BMI 20.0-20.9, adult Start:23-Apr-2020 Instruction Type:Patient Edu cation Patient Instructions Indication:BMI 20.0-20.9, adult Start:23-Apr-2020 Instruction Type:Provider Instructions for Treatment How to access health informa tion online Indication:Encounter for annual general medical examination with abnormal findings in adult Start:16-Mar-2020 Instruction Type:Patient Edu cation How to access health informa tion online - Detail Indication:Encounter for annual general medical examination with abnormal findings in adult Start:16-Mar-2020 Instruction Type:Patient Edu cation Patient Instructions Indication:Encounter for annual general medical examination with abnormal findings in adult Start:16-Mar-2020 Instruction Type:Provider Instructions for Treatment Name Dates Details How to access health informa tion online Indication:Unspecified Diagnosis Start:09-Jun-2020 Instruction Type:Patient Education How to access health informa tion online - Detail Indication:Unspecified Diagnosis Start:09-Jun-2020 Instruction Type:Patient Education Patient Instructions Indication:Unspecified Diagnosis Start:09-Jun-2020 Instruction Type:Provider Instructions for Treatment How to access health informa tion online Indication:BMI 20.0-20.9, adult Start:23-Apr-2020 Instruction Type:Patient Education How to access health informa tion online - Detail Indication:BMI 20.0-20.9, adult Start:23-Apr-2020 Instruction Type:Patient Education Patient Instructions Indication:BMI 20.0-20.9, adult Start:23-Apr-2020 Instruction Type:Provider Instructions for Treatment How to access health informa tion online Indication:Encounter for annual general medical examination with abnormal findings in adult Start:16-Mar-2020 Instruction Type:Patient Education How to access health informa tion online - Detail Indication:Encounter for annual general medical examination with abnormal findings in adult Start:16-Mar-2020 Instruction Type:Patient Education Patient Instructions Indication:Encounter for annual general medical examination with abnormal findings in adult Start:16-Mar-2020 Instruction Type:Provider Instructions for Treatment Name Dates Details How to access health informa tion online Indication:Unspecified Diagnosis Start:09-Jun-2020 Instruction Type:Patient Education How to access health informa tion online - Detail Indication:Unspecified Diagnosis Start:09-Jun-2020 Instruction Type:Patient Education Patient Instructions Indication:Unspecified Diagnosis Start:09-Jun-2020 Instruction Type:Provider Instructions for Treatment How to access health informa tion online Indication:BMI 20.0-20.9, adult Start:23-Apr-2020 Instruction Type:Patient Education How to access health informa tion online - Detail Indication:BMI 20.0-20.9, adult Start:23-Apr-2020 Instruction Type:Patient Education Patient Instructions Indication:BMI 20.0-20.9, adult Start:23-Apr-2020 Instruction Type:Provider Instructions for Treatment How to access health informa tion online Indication:Encounter for annual general medical examination with abnormal findings in adult Start:16-Mar-2020 Instruction Type:Patient Education How to access health informa tion online - Detail Indication:Encounter for annual general medical examination with abnormal findings in adult Start:16-Mar-2020 Instruction Type:Patient Education Patient Instructions Indication:Encounter for annual general medical examination with abnormal findings in adult Start:16-Mar-2020 Instruction Type:Provider Instructions for Treatment Name Dates Details How to access health informa tion online Indication:Non-smoker Start:07-Jul-2020 Instruction Type:Patient Education How to access health informa tion online - Detail Indication:Non-smoker Start:07-Jul-2020 Instruction Type:Patient Education Patient Instructions Indication:Non-smoker Start:07-Jul-2020 Instruction Type:Provider Instructions for Treatment How to access health informa tion online Indication:Unspecified Diagnosis Start:09-Jun-2020 Instruction Type:Patient Education How to access health informa tion online - Detail Indication:Unspecified Diagnosis Start:09-Jun-2020 Instruction Type:Patient Education Patient Instructions Indication:Unspecified Diagnosis Start:09-Jun-2020 Instruction Type:Provider Instructions for Treatment How to access health informa tion online Indication:BMI 20.0-20.9, adult Start:23-Apr-2020 Instruction Type:Patient Education How to access health informa tion online - Detail Indication:BMI 20.0-20.9, adult Start:23-Apr-2020 Instruction Type:Patient Education Patient Instructions Indication:BMI 20.0-20.9, adult Start:23-Apr-2020 Instruction Type:Provider Instructions for Treatment How to access health informa tion online Indication:Encounter for annual general medical examination with abnormal findings in adult Start:16-Mar-2020 Instruction Type:Patient Education How to access health informa tion online - Detail Indication:Encounter for annual general medical examination with abnormal findings in adult Start:16-Mar-2020 Instruction Type:Patient Education Patient Instructions Indication:Encounter for annual general medical examination with abnormal findings in adult Start:16-Mar-2020 Instruction Type:Provider Instructions for Treatment Name Dates Details How to access health informa tion online Indication:Non-smoker Start:07-Jul-2020 Instruction Type:Patient Education How to access health informa tion online - Detail Indication:Non-smoker Start:07-Jul-2020 Instruction Type:Patient Education Patient Instructions Indication:Non-smoker Start:07-Jul-2020 Instruction Type:Provider Instructions for Treatment How to access health informa tion online Indication:Unspecified Diagnosis Start:09-Jun-2020 Instruction Type:Patient Education How to access health informa tion online - Detail Indication:Unspecified Diagnosis Start:09-Jun-2020 Instruction Type:Patient Education Patient Instructions Indication:Unspecified Diagnosis Start:09-Jun-2020 Instruction Type:Provider Instructions for Treatment How to access health informa tion online Indication:BMI 20.0-20.9, adult Start:23-Apr-2020 Instruction Type:Patient Education How to access health informa tion online - Detail Indication:BMI 20.0-20.9, adult Start:23-Apr-2020 Instruction Type:Patient Education Patient Instructions Indication:BMI 20.0-20.9, adult Start:23-Apr-2020 Instruction Type:Provider Instructions for Treatment How to access health informa tion online Indication:Encounter for annual general medical examination with abnormal findings in adult Start:16-Mar-2020 Instruction Type:Patient Education How to access health informa tion online - Detail Indication:Encounter for annual general medical examination with abnormal findings in adult Start:16-Mar-2020 Instruction Type:Patient Education Patient Instructions Indication:Encounter for annual general medical examination with abnormal findings in adult Start:16-Mar-2020 Instruction Type:Provider Instructions for Treatment Name Dates Details How to access health informa tion online Indication:Non-smoker Start:07-Jul-2020 Instruction Type:Patient Education How to access health informa tion online - Detail Indication:Non-smoker Start:07-Jul-2020 Instruction Type:Patient Education Patient Instructions Indication:Non-smoker Start:07-Jul-2020 Instruction Type:Provider Instructions for Treatment How to access health informa tion online Indication:Unspecified Diagnosis Start:09-Jun-2020 Instruction Type:Patient Education How to access health informa tion online - Detail Indication:Unspecified Diagnosis Start:09-Jun-2020 Instruction Type:Patient Education Patient Instructions Indication:Unspecified Diagnosis Start:09-Jun-2020 Instruction Type:Provider Instructions for Treatment How to access health informa tion online Indication:BMI 20.0-20.9, adult Start:23-Apr-2020 Instruction Type:Patient Education How to access health informa tion online - Detail Indication:BMI 20.0-20.9, adult Start:23-Apr-2020 Instruction Type:Patient Education Patient Instructions Indication:BMI 20.0-20.9, adult Start:23-Apr-2020 Instruction Type:Provider Instructions for Treatment How to access health informa tion online Indication:Encounter for annual general medical examination with abnormal findings in adult Start:16-Mar-2020 Instruction Type:Patient Education How to access health informa tion online - Detail Indication:Encounter for annual general medical examination with abnormal findings in adult Start:16-Mar-2020 Instruction Type:Patient Education Patient Instructions Indication:Encounter for annual general medical examination with abnormal findings in adult Start:16-Mar-2020 Instruction Type:Provider Instructions for Treatment Name Dates Details How to access health informa tion online Indication:Non-smoker Start:07-Jul-2020 Instruction Type:Patient Education How to access health informa tion online - Detail Indication:Non-smoker Start:07-Jul-2020 Instruction Type:Patient Education Patient Instructions Indication:Non-smoker Start:07-Jul-2020 Instruction Type:Provider Instructions for Treatment How to access health informa tion online Indication:Unspecified Diagnosis Start:09-Jun-2020 Instruction Type:Patient Education How to access health informa tion online - Detail Indication:Unspecified Diagnosis Start:09-Jun-2020 Instruction Type:Patient Education Patient Instructions Indication:Unspecified Diagnosis Start:09-Jun-2020 Instruction Type:Provider Instructions for Treatment How to access health informa tion online Indication:BMI 20.0-20.9, adult Start:23-Apr-2020 Instruction Type:Patient Education How to access health informa tion online - Detail Indication:BMI 20.0-20.9, adult Start:23-Apr-2020 Instruction Type:Patient Education Patient Instructions Indication:BMI 20.0-20.9, adult Start:23-Apr-2020 Instruction Type:Provider Instructions for Treatment How to access health informa tion online Indication:Encounter for annual general medical examination with abnormal findings in adult Start:16-Mar-2020 Instruction Type:Patient Education How to access health informa tion online - Detail Indication:Encounter for annual general medical examination with abnormal findings in adult Start:16-Mar-2020 Instruction Type:Patient Education Patient Instructions Indication:Encounter for annual general medical examination with abnormal findings in adult Start:16-Mar-2020 Instruction Type:Provider Instructions for Treatment Name Dates Details How to access health informa tion online Indication:Non-smoker Start:07-Jul-2020 Instruction Type:Patient Education How to access health informa tion online - Detail Indication:Non-smoker Start:07-Jul-2020 Instruction Type:Patient Education Patient Instructions Indication:Non-smoker Start:07-Jul-2020 Instruction Type:Provider Instructions for Treatment How to access health informa tion online Indication:Unspecified Diagnosis Start:09-Jun-2020 Instruction Type:Patient Education How to access health informa tion online - Detail Indication:Unspecified Diagnosis Start:09-Jun-2020 Instruction Type:Patient Education Patient Instructions Indication:Unspecified Diagnosis Start:09-Jun-2020 Instruction Type:Provider Instructions for Treatment How to access health informa tion online Indication:BMI 20.0-20.9, adult Start:23-Apr-2020 Instruction Type:Patient Education How to access health informa tion online - Detail Indication:BMI 20.0-20.9, adult Start:23-Apr-2020 Instruction Type:Patient Education Patient Instructions Indication:BMI 20.0-20.9, adult Start:23-Apr-2020 Instruction Type:Provider Instructions for Treatment How to access health informa tion online Indication:Encounter for annual general medical examination with abnormal findings in adult Start:16-Mar-2020 Instruction Type:Patient Education How to access health informa tion online - Detail Indication:Encounter for annual general medical examination with abnormal findings in adult Start:16-Mar-2020 Instruction Type:Patient Education Patient Instructions Indication:Encounter for annual general medical examination with abnormal findings in adult Start:16-Mar-2020 Instruction Type:Provider Instructions for Treatment Name Dates Details How to access health informa tion online Indication:Non-smoker Start:07-Jul-2020 Instruction Type:Patient Education How to access health informa tion online - Detail Indication:Non-smoker Start:07-Jul-2020 Instruction Type:Patient Education Patient Instructions Indication:Non-smoker Start:07-Jul-2020 Instruction Type:Provider Instructions for Treatment How to access health informa tion online Indication:Unspecified Diagnosis Start:09-Jun-2020 Instruction Type:Patient Education How to access health informa tion online - Detail Indication:Unspecified Diagnosis Start:09-Jun-2020 Instruction Type:Patient Education Patient Instructions Indication:Unspecified Diagnosis Start:09-Jun-2020 Instruction Type:Provider Instructions for Treatment How to access health informa tion online Indication:BMI 20.0-20.9, adult Start:23-Apr-2020 Instruction Type:Patient Education How to access health informa tion online - Detail Indication:BMI 20.0-20.9, adult Start:23-Apr-2020 Instruction Type:Patient Education Patient Instructions Indication:BMI 20.0-20.9, adult Start:23-Apr-2020 Instruction Type:Provider Instructions for Treatment How to access health informa tion online Indication:Encounter for annual general medical examination with abnormal findings in adult Start:16-Mar-2020 Instruction Type:Patient Education How to access health informa tion online - Detail Indication:Encounter for annual general medical examination with abnormal findings in adult Start:16-Mar-2020 Instruction Type:Patient Education Patient Instructions Indication:Encounter for annual general medical examination with abnormal findings in adult Start:16-Mar-2020 Instruction Type:Provider Instructions for Treatment Name Dates Details How to access health informa tion online Indication:Fracture of left clavicle with nonunion Start:01-Sep-2020 Instruction Type:Patient Education How to access health informa tion online - Detail Indication:Fracture of left clavicle with nonunion Start:01-Sep-2020 Instruction Type:Patient Education Patient Instructions Indication:Fracture of left clavicle with nonunion Start:01-Sep-2020 Instruction Type:Provider Instructions for Treatment How to access health informa tion online Indication:Non-smoker Start:07-Jul-2020 Instruction Type:Patient Education How to access health informa tion online - Detail Indication:Non-smoker Start:07-Jul-2020 Instruction Type:Patient Education Patient Instructions Indication:Non-smoker Start:07-Jul-2020 Instruction Type:Provider Instructions for Treatment How to access health informa tion online Indication:Unspecified Diagnosis Start:09-Jun-2020 Instruction Type:Patient Education How to access health informa tion online - Detail Indication:Unspecified Diagnosis Start:09-Jun-2020 Instruction Type:Patient Education Patient Instructions Indication:Unspecified Diagnosis Start:09-Jun-2020 Instruction Type:Provider Instructions for Treatment How to access health informa tion online Indication:BMI 20.0-20.9, adult Start:23-Apr-2020 Instruction Type:Patient Education How to access health informa tion online - Detail Indication:BMI 20.0-20.9, adult Start:23-Apr-2020 Instruction Type:Patient Education Patient Instructions Indication:BMI 20.0-20.9, adult Start:23-Apr-2020 Instruction Type:Provider Instructions for Treatment How to access health informa tion online Indication:Encounter for annual general medical examination with abnormal findings in adult Start:16-Mar-2020 Instruction Type:Patient Education How to access health informa tion online - Detail Indication:Encounter for annual general medical examination with abnormal findings in adult Start:16-Mar-2020 Instruction Type:Patient Education Patient Instructions Indication:Encounter for annual general medical examination with abnormal findings in adult Start:16-Mar-2020 Instruction Type:Provider Instructions for Treatment Name Dates Details How to access health informa tion online Indication:Fracture of left clavicle with nonunion Start:01-Sep-2020 Instruction Type:Patient Education How to access health informa tion online - Detail Indication:Fracture of left clavicle with nonunion Start:01-Sep-2020 Instruction Type:Patient Education Patient Instructions Indication:Fracture of left clavicle with nonunion Start:01-Sep-2020 Instruction Type:Provider Instructions for Treatment How to access health informa tion online Indication:Non-smoker Start:07-Jul-2020 Instruction Type:Patient Education How to access health informa tion online - Detail Indication:Non-smoker Start:07-Jul-2020 Instruction Type:Patient Education Patient Instructions Indication:Non-smoker Start:07-Jul-2020 Instruction Type:Provider Instructions for Treatment How to access health informa tion online Indication:Unspecified Diagnosis Start:09-Jun-2020 Instruction Type:Patient Education How to access health informa tion online - Detail Indication:Unspecified Diagnosis Start:09-Jun-2020 Instruction Type:Patient Education Patient Instructions Indication:Unspecified Diagnosis Start:09-Jun-2020 Instruction Type:Provider Instructions for Treatment How to access health informa tion online Indication:BMI 20.0-20.9, adult Start:23-Apr-2020 Instruction Type:Patient Education How to access health informa tion online - Detail Indication:BMI 20.0-20.9, adult Start:23-Apr-2020 Instruction Type:Patient Education Patient Instructions Indication:BMI 20.0-20.9, adult Start:23-Apr-2020 Instruction Type:Provider Instructions for Treatment How to access health informa tion online Indication:Encounter for annual general medical examination with abnormal findings in adult Start:16-Mar-2020 Instruction Type:Patient Education How to access health informa tion online - Detail Indication:Encounter for annual general medical examination with abnormal findings in adult Start:16-Mar-2020 Instruction Type:Patient Education Patient Instructions Indication:Encounter for annual general medical examination with abnormal findings in adult Start:16-Mar-2020 Instruction Type:Provider Instructions for Treatment Name Dates Details How to access health informa tion online Indication:Fracture of left clavicle with nonunion Start:01-Sep-2020 Instruction Type:Patient Education How to access health informa tion online - Detail Indication:Fracture of left clavicle with nonunion Start:01-Sep-2020 Instruction Type:Patient Education Patient Instructions Indication:Fracture of left clavicle with nonunion Start:01-Sep-2020 Instruction Type:Provider Instructions for Treatment How to access health informa tion online Indication:Non-smoker Start:07-Jul-2020 Instruction Type:Patient Education How to access health informa tion online - Detail Indication:Non-smoker Start:07-Jul-2020 Instruction Type:Patient Education Patient Instructions Indication:Non-smoker Start:07-Jul-2020 Instruction Type:Provider Instructions for Treatment How to access health informa tion online Indication:Unspecified Diagnosis Start:09-Jun-2020 Instruction Type:Patient Education How to access health informa tion online - Detail Indication:Unspecified Diagnosis Start:09-Jun-2020 Instruction Type:Patient Education Patient Instructions Indication:Unspecified Diagnosis Start:09-Jun-2020 Instruction Type:Provider Instructions for Treatment How to access health informa tion online Indication:BMI 20.0-20.9, adult Start:23-Apr-2020 Instruction Type:Patient Education How to access health informa tion online - Detail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 Active Team Status: Inactive Member Role Status Dates Dr. Bessie De Luna MD Primary Care Provi mattie, Attending Provider, Referring Provider Active Home Appliance Installer Relationship Specialty Start Date End Date Bessie De Luna MD [address] [facility] [address] [place] [address] PCP - General Internal Medicine 02/08/21 Jacquelyn Tavarez MD [address] [place] [address] Referring General Surgery 12/29/21 Home Appliance Installer Relationship Specialty Start Date End Date Bessie De Luna MD [address] [place] [address] PCP - General Internal Medicine 02/08/21 Jacquelyn Tavarez MD [address] [place] [address] Referring General Surgery 12/29/21 Home Appliance Installer Relationship Specialty Start Date End Date Bessie De Luna MD [address] [place] [address] PCP - General Internal Medicine 02/08/21 Jacquelyn Tavarez MD [address] [place] [address] Referring General Surgery 12/29/21 Home Appliance Installer Relationship Specialty Start Date End Date Bessie De Luna MD [address] [place] [address] PCP - General Internal Medicine 02/08/21 Jacquelyn Tavarez MD [address] [place] [address] Referring General Surgery 12/29/21 Home Appliance Installer Relationship Specialty Start Date End Date Bessie De Luna MD PCP - General Internal Medicine 02/08/21 Jacquelyn Tavarez MD [address] [place] [address] Referring General Surgery 12/29/21 Home Appliance Installer Relationship Specialty Start Date End Date Bessie De Luna MD PCP - General Internal Medicine 02/08/21 Jacquelyn Tavarez MD [address] [place] [address] Referring General Surgery 12/29/21 Home Appliance Installer Relationship Specialty Start Date End Date Bessie De Luna MD PCP - General Internal Medicine 02/08/21 Jacquelyn Tavarez MD [address] [place] [address] Referring General Surgery 12/29/21 Home Appliance Installer Relationship Specialty Start Date End Date Bessie De Luna MD PCP - General Internal Medicine 02/08/21 Jacquelyn Tavarez MD [address] [place] [address] Referring General Surgery 12/29/21 Home Appliance Installer Relationship Specialty Start Date End Date Bessie De Luna MD PCP - General Internal Medicine 02/08/21 Jacquelyn Tavarez MD [facility] [place] [address] Referring General Surgery 12/29/21 Home Appliance Installer Relationship Specialty Start Date End Date Bessie De Luna MD [address] [place] [address] [address] [place] [address] PCP - General Internal Medicine 09/01/20 Home Appliance Installer Relationship Specialty Start Date End Date Bessie De Luna MD PCP - General Internal Medicine 02/08/21 Jacquelyn Tavarez MD [address] [place] [address] Referring General Surgery 12/29/21 Home Appliance Installer Relationship Specialty Start Date End Date Bessie De Luna MD PCP - General Internal Medicine 02/08/21 Jacquelyn Tavarez MD [address] [place] [address] Referring General Surgery 12/29/21 Home Appliance Installer Relationship Specialty Start Date End Date Bessie De Luna MD PCP - General Internal Medicine 02/08/21 Jacquelyn Tavarez MD [address] [place] [address] Referring General Surgery 12/29/21 Home Appliance Installer Relationship Specialty Start Date End Date Bessie De Luna MD PCP - General Internal Medicine 02/08/21 Jacquelyn Tavarez MD [address] [place] [address] Referring General Surgery 12/29/21 Home Appliance Installer Relationship Specialty Start Date End Date Bessie De Luna MD PCP - General Internal Medicine 02/08/21 Jacquelyn Tavarez MD [address] [place] [address] Referring General Surgery 12/29/21 Home Appliance Installer Relationship Specialty Start Date End Date Bessie De Luna MD PCP - General Internal Medicine 02/08/21 Jacquelyn Tavarez MD [address] [place] [address] Referring General Surgery 12/29/21 Home Appliance Installer Relationship Specialty Start Date End Date Bessie De Luna MD PCP - General Internal Medicine 02/08/21 Jacquelyn Tavarez MD [address] [place] [address] Referring General Surgery 12/29/21 Home Appliance Installer Relationship Specialty Start Date End Date Bessie De Luna MD PCP - General Internal Medicine 02/08/21 Jacquelyn Tavarez MD [address] [place] [address] Referring General Surgery 12/29/21 Home Appliance Installer Relationship Specialty Start Date End Date Bessie De Luna MD PCP - General Internal Medicine 02/08/21 Jacquelyn Tavarez MD [address] [place] [address] Referring General Surgery 12/29/21 Home Appliance Installer Relationship Specialty Start Date End Date Bessie De Luna MD PCP - General Internal Medicine 02/08/21 Jacquelyn Tavarez MD [address] [place] [address] Referring General Surgery 12/29/21 Home Appliance Installer Relationship Specialty Start Date End Date Bessie De Luna MD PCP - General Internal Medicine 02/08/21 Jacquelyn Tavarez MD [address] [place] [address] Referring General Surgery 12/29/21 Home Appliance Installer Relationship Specialty Start Date End Date Bessie De Luna MD PCP - General Internal Medicine 02/08/21 Jacquelyn Tavarez MD [address] [place] [address] Referring General Surgery 12/29/21 Home Appliance Installer Relationship Specialty Start Date End Date Bessie De Luna MD PCP - General Internal Medicine 02/08/21 Jacquelyn Tavarez MD [address] [place] [address] Referring General Surgery 12/29/21 Home Appliance Installer Relationship Specialty Start Date End Date Bessie De Luna MD [facility] [facility] [address] [place] [address] PCP - General Internal Medicine 09/01/20 Home Appliance Installer Relationship Specialty Start Date End Date Bessie De Luna MD PCP - General Internal Medicine 02/08/21 Jacquelyn Tavarez MD [address] [place] [address] Referring General Surgery 12/29/21 Team Status: Active Member Role Status Dates Dr. Rafita Bass MD Family Provider Active Dr. Bessie De Luna MD Primary Care Provider Active Team Status: Inactive Member Role Status Dates Dr. Bessie De Luna MD Primary Care Provider Active Self Referred Attending Provider, Referring Provider A ctive Home Appliance Installer Relationship Specialty Start Date End Date Bessie De Luna MD PCP - General Internal Medicine 02/08/21 Jacquelyn Tavarez MD [address] [place] [address] Referring General Surgery 12/29/21 Home Appliance Installer Relationship Specialty Start Date End Date Bessie De Luna MD PCP - General Internal Medicine 02/08/21 Jacquelyn Tavarez MD [address] [place] [address] Referring General Surgery 12/29/21 Home Appliance Installer Relationship Specialty Start Date End Date Bessie De Luna MD PCP - General Internal Medicine 02/08/21 Jacquelyn Tavarez MD [address] [place] [address] Referring General Surgery 12/29/21 Home Appliance Installer Relationship Specialty Start Date End Date Bessie De Luna MD PCP - General Internal Medicine 02/08/21 Jacquelyn Tavarez MD [address] [place] [address] Referring General Surgery 12/29/21 Home Appliance Installer Relationship Specialty Start Date End Date Bessie De Luna MD PCP - General Internal Medicine 02/08/21 Jacquelyn Tavarez MD [address] [place] [address] Referring General Surgery 12/29/21 Home Appliance Installer Relationship Specialty Start Date End Date Bessie De Luna MD PCP - General Internal Medicine 02/08/21 Jacquelyn Tavarez MD [address] [place] [address] Referring General Surgery 12/29/21 Home Appliance Installer Relationship Specialty Start Date End Date Bessie De Luna MD PCP - General Internal Medicine 02/08/21 Jacquelyn Tavarez MD [address] [place] [address] Referring General Surgery 12/29/21 Home Appliance Installer Relationship Specialty Start Date End Date Bessie De Luna MD PCP - General Internal Medicine 02/08/21 Jacquelyn Tavarez MD [address] [place] [address] Referring General Surgery 12/29/21 Home Appliance Installer Relationship Specialty Start Date End Date Bessie De Luna MD PCP - General Internal Medicine 02/08/21 Jacquelyn Tavarez MD [address] [place] [address] Referring General Surgery 12/29/21 Home Appliance Installer Relationship Specialty Start Date End Date Bessie De Luna MD PCP - General Internal Medicine 02/08/21 Home Appliance Installer Relationship Specialty Start Date End Date Bessie De Luna MD [address] [place] [address] PCP - General Internal Medicine 09/01/20 Home Appliance Installer Relationship Specialty Start Date End Date Bessie De Luna MD [facility] [facility] [address] [place] [address] PCP - General Internal Medicine 09/01/20 Home Appliance Installer Relationship Specialty Start Date End Date eBssie De Luna MD PCP - General Internal Medicine 02/08/21 Home Appliance Installer Relationship Specialty Start Date End Date Bessie De Luna MD [address] [place] [address] Rd [address] [place] [address] PCP - General Internal Medicine 09/01/20 Team Status: Active Member Role Status Dates Dr. Bessie De Luna MD Primary Care Provider Active Team Status: Active Member Role Status Dates Dr. Bessie De Luna MD Primary Care Provider Active Start: November 04, 2024 Self Referred Attending Provider Active Start: J anuary 2024 Self Referred Referring Provider Active Start: J anuary 2024 Team Status: Inactive Member Role Status Dates Dr. Bessie De Luna MD Primary Care Provider Active Start: November 14, 2024 End: November 14, 2024 Dr. Bessie De Luna MD Attending Provider Active Start: November 14, 2024 End: November 14, 2024 Dr. Bessie De Luna MD Referring Provider Active Start: November 14, 2024 End: November 14, 2024 Team Status: Inactive Member Role Status Dates Dr. Bessie De Luna MD Primary Care Provider Active Start: January 30, 2025 End: January 30, 2025 Dr. Bessie De Luna MD Attending Provider Active Start: January 30, 2025 End: January 30, 2025 Dr. Bessie De Luna MD Referring Provider Active Start: January 30, 2025 End: January 30, 2025 Home Appliance Installer Relationship Specialty Start Date End Date Bessie De Luna MD PCP - General Internal Medicine 02/08/21 Jacquelyn Tavarez MD [address] [place] [address] Referring General Surgery 12/29/21 Home Appliance Installer Relationship Specialty Start Date End Date Bessie De Luna MD PCP - General Internal Medicine 02/08/21 Jacquelyn Tavarez MD [address] [place] [address] Referring General Surgery 12/29/21 Home Appliance Installer Relationship Specialty Start Date End Date Bessie De Luna MD PCP - General Internal Medicine 02/08/21 Jacquelyn Tavarez MD [address] [place] [address] Referring General Surgery 12/29/21 Home Appliance Installer Relationship Specialty Start Date End Date Bessie De Luna MD PCP - General Internal Medicine 09/01/20 Home Appliance Installer Relationship Specialty Start Date End Date Bsesie De Luna MD PCP - General Internal Medicine 02/08/21 Jacquelyn Tavarez MD [address] [place] [address] Referring General Surgery 12/29/21 Team Status: Active Member Role/Relationship Status Dates Dr. Bessie De Luna MD Primary Care Provider Active Team Status: Inactive Member Role/Relationship Status Dates Dr. Bessie De Luna MD Primary Care Provider Active Start: January 30, 2025 End: January 30, 2025 Dr. Bessie De Luna MD Attending Provider Active Start: January 30, 2025 End: January 30, 2025 Dr. Bessie De Luna MD Referring Provider Active Start: January 30, 2025 End: January 30, 2025 Team Status: Active Member Role/Relationship Status Dates Dr. Bessie De Luna MD Primary Care Provider Active Start: January 30, 2025 Dr. Bessie De Luna MD Referring Provider Active Start: January 30, 2025 Dr. Oli Rodriguez MD Attending Provider Active S tart: January 30, 2025 Team Status: Inactive Member Role/Relationship Status Dates Dr. Bessie De Luna MD Primary Care Provider Active Start: May 06, 2025 End: May 06, 2025 Dr. Bessie De Luna MD Referring Provider Active Start: May 06, 2025 End: May 06, 2025 Dr. Seun Bueno MD Attending Provider Active Start: May 06, 2025 End: May 06, 2025 Team Status: Inactive Member Role/Relationship Status Dates Dr. Bessie De Luna MD Primary Care Provider Active Start: May 19, 2025 End: May 19, 2025 Dr. Seun Bueno MD Attending Provider Active Start: May 19, 2025 End: May 19, 2025 Dr. Seun Bueno MD Referring Provider Active Start: May 19, 2025 End: May 19, 2025 Team Status: Active Member Role/Relationship Status Dates Dr. Bessie De Luna MD Primary Care Provider Active Start: May 28, 2025 Dr. Bessie De Luna MD Referring Provider Active Start: May 28, 2025 ELPIDIO Manzano Attending Provider Active Star t: May 28, 2025 Team Status: Inactive Member Role/Relationship Status Dates Dr. Bessie De Luna MD Primary Care Provider Active Start: May 28, 2025 End: May 28, 2025 Dr. Oli Rodriguez MD Attending Provider Active S tart: May 28, 2025 End: May 28, 2025 Team Status: Inactive Member Role/Relationship Status Dates Dr. Bessie De Luna MD Primary Care Provider Active Start: May 28, 2025 End: May 28, 2025 Dr. Bessie De Luna MD Referring Provider Active Start: May 28, 2025 End: May 28, 2025 ELPIDIO Manzano Attending Provider Active Star t: May 28, 2025 End: May 28, 2025 FOR RECORDS PERTAINING TO PATIENTS WHO ARE OR HAVE BEEN ENROLLED IN A CHEMICAL DEPENDENCY/SUBSTANCEABUSE PROGRAM, SOME INFORMATION MAY BE OMITTED. This clinical summary was aggregated from multiple sources. Caution should be exercised in using it in the provision of clinical care. This summary normalizes information from multiple sources, and as a consequence, information in this document may materially change the coding, format and clinical context of patient data. In addition, data may be omitted in some cases. CLINICAL DECISIONS SHOULD BE BASED ON THE PRIMARY CLINICAL RECORDS. [facility]. provides no warranty or guarantee of the accuracy or completeness of information in this document.
--- NOTE | 2025-07-07 17:31 | STRESSREP ---
Stress Test Report Exercise myocardial perfusion stress test. 74-year-old lady with a history of chest pain. Stress protocol: Resting EKG demonstrates normal sinus rhythm with a rate of 72 bpm resting blood pressure is 154/88 mmHg. The patient exercised according to the regular Evelio protocol for a total duration of 5-1/2 minutes attaining a maximum heart rate of 169 bpm which was 117% of maximum predicted heart rate; the maximum workload was 7 metabolic equivalents. At rest there were no ST or T wave changes noted to suggest ischemia and at peak exercise 1.[address] depression were noted in the inferior leads and 1.2 mm in the lateral leads. In the immediate post exercise. These changes reverted to normal. No chest pain was noted. No clinical angina was noted the test was terminated due to the target heart rate being achieved/fatigue. The peak blood pressure was 170/100 mmHg. Rate-pressure product was 29,400. Myocardial perfusion protocol. 10 mCi of technetium 99m sestamibi was injected at rest. The patient exercised according to regular Evelio protocol for total duration of 5-1/2 and at peak exercise 35 mCi of technetium 99m sestamibi was injected stress images were obtained stress and rest images were reconstructed in comparing the short axis vertical long and horizontal long axis. Gated images were also obtained. Perfusion SPECT analysis: Review of the stress images demonstrate normal uptake of tracer noted in all areas of the myocardium. The resting images similarly demonstrate normal uptake of tracer noted in all areas of the myocardium. No areas of reversibility are noted to suggest ischemia no previous infarct was noted. Gated SPECT analysis: The gated ejection fraction is 69%. Conclusion: Normal exercise myocardial perfusion stress test at a moderate workload. EKG changes of unclear clinical significance.
== END | disposition home or self-care (01) ==
LOC: CVS 07:16
PROVIDERS: PCP Internal Medicine; Referring Provider Internal Medicine; Visit Provider Internal Medicine
DX: R07.9 Chest pain, unspecified (principal)
CPT/HCPCS: 78452; 93017; A9500; A4216

== ENCOUNTER 2025-07-10 13:43 | Outpatient (CLI) | payer MEDICARE, SELFPAY ==
--- NOTE | 2025-07-10 13:51 | CDU_ITS ---
Reason For Study Reason For Study: Athersclerotic Plaque Rt. Velocities/BP Lt. Velocities/BP Prox CCA 88.4/20.4 cm/sec. Prox CCA 86.4/23.7 cm/sec. Mid CCA 70.5/19.5 cm/sec. Mid CCA 79.0/17.6 cm/sec. Dist CCA 71.4/21.4 cm/sec. Dist CCA 73.3/23.2 cm/sec. Prox ICA 53.5/17.6 cm/sec. Prox ICA 62.0/27.0 cm/sec. Mid ICA 77.5/27.3 cm/sec. Mid ICA 76.1/28.9 cm/sec. Dist ICA 71.1/27.3 cm/sec. Dist ICA 71.7/25.4 cm/sec. Rt. ICA/CCA = 1.1. Lt. ICA/CCA = 1.0. Prox ECA 55.4/6.2 cm/sec. Prox ECA 63.2/10.3 cm/sec. Rt. Vert. 41.2/14.7 cm/sec. Lt. Vert. 36.7/11.1 cm/sec. Right Extracranial There is homogeneous, smooth atherosclerotic plaque noted in the right common carotid artery. There is intimal thickening but no significant atherosclerotic plaque noted in the right internal carotid artery. There is intimal thickening but no significant atherosclerotic plaque noted in the right external carotid artery. Antegrade flow is noted in the right vertebral artery. Left Extracranial There is homogeneous, smooth atherosclerotic plaque noted in the left common carotid artery. There is intimal thickening but no significant atherosclerotic plaque noted in the left internal carotid artery. There is intimal thickening but no significant atherosclerotic plaque noted in the left external carotid artery. Antegrade flow is noted in the left vertebral artery. Procedure Carotid Duplex 17907. This is a Carotid Duplex examination using B-mode, color flow and specral Doppler. The exam was diagnostic. Exam performed in department. VL/Carotid Duplex Ultrasound Interpretation Summary No significant atherosclerotic plaque or stenosis noted in the internal carotid arteries bilaterally. Flow within the vertebral arteries is antegrade bilaterally. Ordering Physician: Maritza De Luna Referring Physician: Seun Bueno Performed By: Eyad Lentz RVT
== END 2025-07-10 23:59 | disposition home or self-care (01) ==
PROVIDERS: PCP Internal Medicine; Referring Provider Internal Medicine; Visit Provider Internal Medicine
DX: I65.21 Occlusion and stenosis of right carotid artery (principal)
CPT/HCPCS: 93880

== ENCOUNTER → 2025-07-30 | Outpatient (CLI) | payer MEDICARE, SELFPAY ==
--- NOTE | 2025-07-30 17:38 | CT_ITS ---
PROCEDURE: CHEST WITH CONTRAST 07/30/2025 REASON FOR EXAM: L MEDIAL PERISCAPULAR PAIN; WINGING OF L SCAPULA TECHNIQUE: Procedure Code: CTCHW Modality: CT Procedure: CHEST WITH CONTRAST Coronal and Sagittal reconstruction series were provided. CONTRAST: Isovue-300 VOLUME: 75 mL One or more dose reduction techniques were used (e.g., Automated exposure control, adjustment of the mA and/or kV according to patient size, use of iterative reconstruction technique). RADIATION DOSE SUMMARY: CTDlvol: 7.3 mGy DLP: 182.55 mGycm COMPARISON: None FINDINGS: Hardware: None Lymph nodes: Small calcified lymph node in the precarinal space. Calcified right hilar lymph nodes. Heart and Vasculature: Normal heart size. No pericardial effusion. Lungs and Airways: Calcified granuloma in the superior segment of the right lower lobe medially. Calcified granulomas in the right lower lobe. No focal infiltrate is seen. Pleura: No pleural effusion. Upper Abdomen: Small cysts seen in the anterior aspect of the right lobe of the liver. Bones: Degenerative changes of the thoracic spine. CT/Chest WITH Contrast IMPRESSION: Coronary artery calcification (CAC) is is absent Calcified right hilar lymph nodes and scattered calcified granulomas in the rig ht lung. Reading Location: [place] [id number]
== END | disposition home or self-care (01) ==
LOC: CT 17:36
PROVIDERS: PCP Internal Medicine; Referring Provider Psychiatry & Neurology Neurology; Visit Provider Psychiatry & Neurology Neurology
DX: M95.8 Other specified acquired deformities of musculoskeletal system (principal); M25.512 Pain in left shoulder; M54.9 Dorsalgia, unspecified
CPT/HCPCS: 71260; Q9967

== ENCOUNTER → 2025-09-22 | Outpatient (CLI) | payer MEDICARE, SELFPAY ==
--- NOTE | 2025-09-22 10:45 | BI_ITS ---
EXAM: SCRN MAMM (CAD)W/RICHMOND BILAT DATE: 09/22/2025 CLINICAL HISTORY: F, Age 74 y/o , SCRN MAMM (CAD)W/RICHMOND BILAT DUE AFTER 09/19/2025 TECHNIQUE: Procedure Code: [id number] Modality: MG Procedure: SCRN MAMM (CAD)W/RICHMOND BILAT COMPARISON: Prior exam(s) dated 09/20/2024, 08/09/2023, and 08/05/2022. FINDINGS: TISSUE DENSITY: The breasts are heterogeneously dense, which may obscure small masses. Bilateral Breast Mammographic Findings: No suspicious masses, suspicious cluster of microcalcifications, architectural distortion or secondary signs of malignancy is identified in either breast. A benign macrocalcification is seen in the left breast. BI/SCRN MAMM (CAD)W/RICHMOND BILAT IMPRESSION: Benign screening mammogram OVERALL FINAL ASSESSMENT BI-RADS 2: BENIGN RECOMMENDATION: Routine annual follow-up in 1 Year Additional Recommendation none A letter with findings and recommendations will be mailed to the patient. Reading Location: [id number]
== END | disposition home or self-care (01) ==
LOC: OPBI 10:43
PROVIDERS: PCP Internal Medicine; Referring Provider Internal Medicine; Visit Provider Internal Medicine
DX: Z12.31 Encounter for screening mammogram for malignant neoplasm of breast (principal)
CPT/HCPCS: 77063; 77067